=== PATIENT | female | born 1990 | race Caucasian/White ===

== ENCOUNTER 2022-07-19 01:29 | Emergency (ER) | payer MEDICAID, SELFPAY ==
[2022-07-19 01:30] VITALS: BP 124/85; PULSE 108; RESP 14; TEMP 36.4; O2SAT 99; BMI 21.4
--- NOTE | 2022-07-19 01:34 | EDS_ITS ---
HPI History of Present Illness Chief Complaint: General Illness Informant: patient and EMS Narrative Narrative: Patient presents by EMS because she feels shaky on the inside, she feels achy all over, feels fidgety, and this all started a couple hours ago, about 1 hour after she took the first dose of 2 new medications for her mental health, gabapentin and Zyprexa. She is currently an inpatient resident at [facility] addiction center. EMS states she is acting like she took an illicit stimulant, the patient denies that but states she does have a history of using crack cocaine. She states this feels like she is in precipitated withdrawal and just wants to feel better so she can go to sleep. She denies any other symptoms. [facility] Medical History (Updated 07/19/22 @ 01:[address] Kristofer Field MD) Alcohol abuse Allergies Anemia Anxiety Asthma Bipolar 2 disorder Depression Drug abuse Hepatitis B Hx MRSA infection Hx of fracture Hx: UTI (urinary tract infection) Lymphocytic colitis PTSD (post-traumatic stress disorder) Recurrent infections Tumors Home Medications buprenorphine 100 mg/0.5 mL solution,exten.rel.subcutaneous syringe (Sublocade) 100 mg subcut QMONTH 07/16/22 [History Last Taken Unknown] hydroxyzine pamoate 50 mg capsule (Vistaril) 50 mg PO BID PRN 07/16/22 [History Last Taken Unknown] prazosin 1 mg capsule 1 mg PO QHS 07/16/22 [History Last Taken Unknown] trazadone 50 mg PO HS 07/16/22 [History Last Taken Unknown] Allergy/AdvReac Type Severity Reaction Status Date / Time penicillin G Allergy Intermediate Hives Verified 07/19/22 01:37 augmentin Allergy Intermediate Hives Uncoded 07/19/22 01:37 Family History (Updated 07/16/22 @ 14:24 by Chantale Fowler) Mother Anemia Cancer cervical/ovarian Grandmother Asthma Breast cancer Parkinsons Poor mental health Father Arthritis Bowel disease Grandfather Colon cancer Diabetes Other Anxiety Surgical History (Updated 07/16/22 @ 14:17 by Chantale Fowler) History of tonsillectomy and adenoidectomy [place] teeth removed Social History Smoking Status: Current every day smoker tobacco type: cigarettes alcohol intake: former year quit: 2014 substance use type: marijuana and crack/cocaine what type of physical activity do you participate in: yoga ROS ROS ED Constitutional Constitutional ED: Denies chills or fever(s) Eyes Eyes: Denies change in vision or diplopia ENT ENT ED: Denies rhinorrhea or sore throat Cardiovascular Cardiovascular: Denies chest pain or palpitations Respiratory/Chest Respiratory/Chest: Denies cough or dyspnea Gastrointestinal Gastrointestinal: Denies abdominal pain, diarrhea, nausea or vomiting Genitourinary Genitourinary ED: Denies dysuria or hematuria Musculoskeletal Musculoskeletal: Reports myalgias; Denies back pain or neck pain Integumentary Denies abscess or rash Neurologic Neurologic: Denies headache(s), paresthesias or weakness Psychiatric Psychiatric: Reports as per HPI and anxiety; Denies hallucinations, paranoia, suicidal ideation, suicidal thoughts or visual hallucinations EXAM Physical Exam Const Vital Signs: 07/19/22 01:30 07/19/22 01:30 Temperature 97.6 F L Temperature Source Temporal Pulse Rate 108 H Respiratory Rate 14 Respiratory Effort Normal Non-Labored Respiratory Pattern Normal Blood Pressure 124/85 H Blood Pressure Mean 98 Pulse Ox 99 Oxygen Delivery Method Room Air Positive well nourished and well developed Constitutional Narrative: Extremely fidgety and hyperactive/increased psychomotor activity. Keenly alert and oriented x3. General Appearance ED: well developed and NAD HEENT Reports moist mucous membranes normocephalic and atraumatic Eyes PERRL and EOMs intact bilaterally Neck full ROM and supple Resp normal respiratory effort and clear to auscultation bilaterally Cardio regular rate, regular rhythm and no murmurs GI non-tender and non-distended Auscultation: normoactive bowel sounds Palpation: soft Back/Spine no CVA tenderness General Back: other FROM Extremity normal to inspection General Extremety ED: Negative for edema, pulses abnormal or tenderness General Extremity: Negative for edema or pulses abnormal Neuro oriented x3, CN's II-XII intact bilaterally, no sensory deficits noted and gait normal Neuro Narrative: No clonus. Downgoing toes bilaterally. Normal reflexes. Sensorium / Orientation: awake and alert Motor Exam: strength 5/5 throughout Psych cooperative, speech normal, denies hallucinations, denies homicidal ideation and denies suicidal ideation Appearance: grossly normal and appropriate Attitude: agitated Activity / Motor Behavior: psychomotor agitation Mood & Affect: anxious Thought Process: normal thought process Thought Content: normal thought content Attention / Concentration: attention grossly intact Skin no rashes or lesions noted and no wounds MDM MDM MDM Narrative Medical decision making narrative: Patient is very fidgety as EMS described, but her vital signs are stable except for very mild tachycardia, and she is cooperative and able to move all 4 extremities. I do not think there is any reason to consider rhabdomyolysis here, and this is unlikely dystonia or serotonin syndrome. I think she is correct this is probably side effect of the medication she took, for unknown reason --these medications should be compatible with what she has listed. I reviewed her other medications including Sublocade injection. Given all of this, she was given an injection of lorazepam and improved, ambulatory to and from toilet in ED without difficulty or involuntary movements. Stable for discharge back to 180. Discharge Plan Triage Chief Complaint: General Illness ED Provider: Kristofer Field Dx/Rx/DC Orders Clinical Impression: Psychomotor agitation Instructions: ED Drug Reaction, Other Prescriptions: No Action Sublocade 100 mg/0.5 mL solution, extended rel syringe 100 mg subcut QMONTH trazadone 50 mg PO HS prazosin 1 mg capsule 1 mg PO QHS hydroxyzine pamoate [Vistaril] 50 mg capsule 50 mg PO BID PRN Primary Care Provider: Care Physician,No Primary Referrals: Doctor,Your [Non-Staff] - 1-2 Days if not improving Activity Restrictions/Additional Instructions: Possible that symptoms may have been due to the recent new medications gabapentin and Zyprexa, reasonable to discontinue these and seek alternatives. Disposition Disposition: Home, Self Care
[2022-07-19] MEDS: LORazepam 2 MG/ML Syringe 1 MG IM (01:46)
[2022-07-19] MEDS: hydrOXYzine PAM 25 MG Capsule 50 MG PO (02:31)
[2022-07-19 02:38] VITALS: BP 124/85; PULSE 108; RESP 14; O2SAT 97
== END 2022-07-19 03:15 | disposition home or self-care (01) ==
PROVIDERS: Emergency Provider Emergency Medicine; Visit Provider Emergency Medicine
DX: R45.1 Restlessness and agitation (principal); F17.210 Nicotine dependence, cigarettes, uncomplicated
CPT/HCPCS: 96372; 99285

== ENCOUNTER → 2022-07-30 | Outpatient (CLI) | payer MEDICAID, SELFPAY ==
--- NOTE | 2022-07-30 16:30 | US_ITS ---
INDICATION: FAMILY HX OF OVARIAN CANCER EXAMINATION: Ultrasound US Transvaginal Non-OB TECHNIQUE: Transvaginal pelvic ultrasound was performed. Grayscale, spectral waveform, and color flow Doppler evaluation of the adnexa. COMPARISON: None. LMP: 07/20/2022. FINDINGS: UTERUS: 7.6 cm in length. Retroverted. Normal configuration. ENDOMETRIUM: Not thickened, 0.6 cm. A few punctate calcifications. OVARIES: Right ovary: 3.6 x 1.5 x 2.6 cm. Left ovary: 4.8 x 2.0 x 2.2 cm. Simple cyst/follicle 1.9 x 1.0 x 1.4 cm. The ovaries appear unremarkable with a few follicles. Vascular flow demonstrated. No findings to suggest ovarian torsion. FREE FLUID: Mild amount in the cul-de-sac. US/Transvaginal Non- IMPRESSION: No acute findings. Left ovarian 2 cm cyst/follicle. Electronically Signed: Cinthya Sal MD at 7:59 EDT ,
== END | disposition home or self-care (01) ==
LOC: US 16:28
PROVIDERS: PCP Internal Medicine; Referring Provider Nurse Practitioner Women's Health; Visit Provider Nurse Practitioner Women's Health
DX: Z80.41 Family history of malignant neoplasm of ovary (principal)
CPT/HCPCS: 76830

== ENCOUNTER → 2022-07-31 | Outpatient (CLI) | payer MEDICAID, SELFPAY ==
[2022-07-31 15:43] LABS: Absolute Lymphocyte Count 2.79 X10^3/uL (0.83-4.51); Absolute Neutrophil Count 4.6 X10^3/uL (2.0-7.7); Basophil# 0.05 X10^3/uL; Basophil% 0.6 % (0-1); Eosinophil# 0.26 X10^3/uL; Eosinophils% 3.1 % (0-5); Hematocrit 37.4 % (37-47); Hemoglobin 11.9 g/dL (12.0-15.0); Lymphocyte # 2.79 X10^3/ul (0.83-4.51); Lymphocyte % 33.1 % (19-41); Mean Corp Hgb Conc 31.8 g/dL (32-36); Mean Corpuscular Hgb 29.2 pg (27.0-32.0); Mean Corpuscular Volume 91.7 fL (81-99); Mean Platelet Vol. 11.9 fl (6.2-12.0); Monocyte# 0.74 X10^3/uL; Monocyte% 8.8 % (0-10); NRBC Flagged by Analyzer 0 % (0-5); Neutrophil # 4.56 X10^3/uL (2.7-7.7); Platelet Count 278 K/mm3 (150-450); RBC Distribution Width CV 14.8 % (11.6-14.6); RBC Distribution Width SD 49.5 fl (35.1-43.9); Red Blood Count 4.08 M/mm3 (4.2-5.4); White Blood Count 8.4 K/mm3 (4.4-11.0)
[2022-07-31 16:03] LABS: AST(SGOT) 16 U/L (15-37); Alanine Aminotransfer ALT/SGPT 25 U/L (13-56); Albumin, Serum 3.5 g/dL (3.2-5.0); Alkaline Phosphatase 45 U/L (45-117); Anion Gap 7 (5-15); BUN 16 mg/dL (7-18); BUN/Creat Ratio 20.6 RATIO (10-20); Chloride 107 mmol/L (98-107); Creatinine, Serum 0.78 mg/dL (0.55-1.02); EST Glomerular Filtration Rate 93 mL/min (>60); Est Glom Filt Rate - Afr Amer 112 mL/min (>60); Globulin 3.4 g/dL (2.2-4.2); Glucose 99 mg/dL (74-106); Potassium 4.4 mmol/L (3.5-5.1); Protein, Total 6.9 g/dL (6.4-8.2); Sodium Level 137 mmol/L (136-145)
[2022-08-02 16:09] LABS: Endomysial Antibody IgA Negative (Negative); Immunoglobulin A 131 mg/dL (87-352); t-Transglutaminase IgA <2 U/mL (0-3)
== END | disposition home or self-care (01) ==
PROVIDERS: PCP Internal Medicine; Visit Provider Internal Medicine
DX: K52.832 Lymphocytic colitis (principal); R10.32 Left lower quadrant pain
CPT/HCPCS: 87493; 36415; 80053; 82784; 83516; 85025; 86255; 87177; 87209; 87329

== ENCOUNTER → 2022-08-06 | Outpatient (CLI) | payer MEDICAID, SELFPAY ==
--- NOTE | 2022-08-06 14:55 | CT_ITS ---
STUDY: CT ABDOMEN AND PELVIS WITH CONTRAST REASON FOR EXAM: Female, 32 years old. LLQ abdominal pain, history of lymphocytic colitis RADIATION DOSAGE (If Supplied By Facility): CTDIvol = ( 12.27 ) mGy, DLP = ( 462.81 ) mGycm TECHNIQUE: Transaxial images were obtained from the dome of the diaphragm to the symphysis pubis without oral contrast. Oral and amp; IV Redi-CAT and amp; 100mL Isovue-370 was administered. Sagittal and coronal images were reconstructed. Individualized dose optimization techniques were used for this CT. COMPARISON: None. FINDINGS: Minimal subsegmental atelectasis or scarring in the right lung base.. The visualized portions of the heart are within normal limits. Normal liver. Normal gallbladder and extrahepatic biliary system. Normal spleen. Normal pancreas. Normal bilateral adrenal glands. Normal right kidney. Normal left kidney. Normal visualized stomach. Normal small intestine. Diffuse fecal retention noted within the colon.. The appendix is visualized and appears normal. Normal abdominal aorta. Normal inferior vena cava. Normal retroperitoneum. Normal urinary bladder. Small left ovarian cyst. Trace of fluid in the cul-de-sac likely recent ovulation. Normal abdominal wall. Lumbar spine demonstrates. CT/Abdomen/Pelvis WITH Contrast IMPRESSION: Diffuse fecal retention noted within normal-appearing colon. Small left ovarian cyst and trace of fluid in the cul-de-sac likely due to recent ovulation. No other significant abnormalities observed at this time Electronically Signed: Bryan Enriquez MD at 19:56 EDT ,
== END | disposition home or self-care (01) ==
LOC: CT 14:30
PROVIDERS: PCP Internal Medicine; Referring Provider Internal Medicine; Visit Provider Internal Medicine
DX: K52.832 Lymphocytic colitis (principal); R10.32 Left lower quadrant pain
CPT/HCPCS: 74177; Q9967

== ENCOUNTER → 2022-09-14 | Outpatient (CLI) | payer MEDICAID, SELFPAY ==
[2022-09-14 15:04] LABS: Platelet Count 232 K/mm3 (150-450); RET-HE 31.7 pg (30-35); Reticulocyte Count 0.77 % (0.5-1.5)
[2022-09-14 15:20] LABS: Erythrocyte Sedimentation Rate 3 mm/hr (0-30)
[2022-09-14 15:49] LABS: Amylase 58 U/L (25-115); CRP < 2.90 mg/L (0.0-3.0); Ferritin 12 ng/mL (8-252); Free T3 2.9 pg/mL (2.18-3.98); Iron 98 ug/dL (50-170); Iron Binding Capacity,Total 381 ug/dL (250-450); LDH 163 U/L (84-246); Lipase 18 U/L (13-75); T4 Free Direct 0.96 ng/dL (0.76-1.46)
[2022-09-17 16:09] LABS: Anti-Centromere B Ab <0.2 AI (0.0-0.9); Anti-Chromatin <0.2 AI (0.0-0.9); Anti-Jo <0.2 AI (0.0-0.9); Anti-Scleroderma-70 AB <0.2 AI (0.0-0.9); Anti-dsDNA Ab <1 IU/mL (0-9); RNP Ab <0.2 AI (0.0-0.9); SJOGREN'S Anti-SS-A test < 0.2 AI (0.0-0.9); SJOGREN'S Anti-SS-B test < 0.2 AI (0.0-0.9); Smith Ab <0.2 AI (0.0-0.9)
== END | disposition home or self-care (01) ==
PROVIDERS: PCP Internal Medicine; Referring Provider Internal Medicine Gastroenterology; Visit Provider Internal Medicine Gastroenterology
DX: K52.832 Lymphocytic colitis (principal); B19.10 Unspecified viral hepatitis B without hepatic coma
CPT/HCPCS: 82150; 82728; 82784; 82785; 82941; 83540; 83550; 83615; 83690; 84165; 84439; 84443; 84481; 85045; 85652; 86140; 86225; 86235; 86256; 86334; 86705; 86707; 87340; 87350

== ENCOUNTER 2022-09-24 15:46 | Emergency (ER) | payer MEDICAID, SELFPAY ==
[2022-09-24 15:47] VITALS: BP 121/86; PULSE 69; RESP 14; TEMP 37.2; O2SAT 98; BMI 23.8
--- NOTE | 2022-09-24 16:28 | ED.VIS.DENTA ---
HPI History of Present Illness Chief Complaint: Dental Narrative Narrative: 32-year-old female with dental pain on the right mandibular region. She states she feels like the pain is radiating into her jaw. She has any trouble swallowing or breathing. No fevers or chills. No nausea or vomiting. Currently she is in [facility] for drug abuse. She states that she has found some leftover clindamycin but states its only 1 pill and she is take it twice a day. She does not know what it was for or where it was from. She knows it was for her. She denies any trauma. She states he has a dentist appointment next Saturday. [facility] Medical History Alcohol abuse Allergies Anemia Anxiety Asthma Bipolar 2 disorder Depression Drug abuse Hepatitis B Hx MRSA infection Hx of fracture Hx: UTI (urinary tract infection) Lymphocytic colitis PTSD (post-traumatic stress disorder) Recurrent infections Tumors Home Medications buprenorphine 100 mg/0.5 mL solution,exten.rel.subcutaneous syringe (Sublocade) 100 mg subcut QMONTH 07/16/22 [History Last Taken Unknown] hydroxyzine pamoate 50 mg capsule (Vistaril) 50 mg PO BID PRN 07/16/22 [History Last Taken Unknown] prazosin 1 mg capsule 1 mg PO QHS 07/16/22 [History Last Taken Unknown] gabapentin 100 mg capsule cap PO 07/19/22 [History Last Taken Unknown] olanzapine 10 mg-samidorphan 10 mg tablet (Lybalvi) 1 tab PO 07/19/22 [History Last Taken Unknown] psyllium husk 3.4 gram/5.4 gram oral powder (Metamucil) 1 tbsp PO DAILY #660 grams 08/07/22 [Rx Last Taken Unknown] ondansetron 4 mg disintegrating tablet 4 mg PO Q8H PRN nausea and vomiting #30 tabs 08/08/22 [Rx Last Taken Unknown] clindamycin HCl 150 mg capsule 450 mg (3 x 150 mg) PO TID 10 days #90 caps 09/24/22 [Rx Last Taken Unknown] naproxen 500 mg tablet (Naprosyn) 500 mg PO BID PRN pain #30 tabs 09/24/22 [Rx Last Taken Unknown] Allergy/AdvReac Type Severity Reaction Status Date / Time penicillin G Allergy Intermediate Hives Verified 09/24/22 15:47 augmentin Allergy Intermediate Hives Uncoded 09/14/22 13:22 Family History Mother Anemia Cancer cervical/ovarian Grandmother Asthma Breast cancer Parkinsons Poor mental health Father Arthritis Bowel disease colitis Grandfather Colon cancer Diabetes Other Anxiety Surgical History History of tonsillectomy and adenoidectomy [place] teeth removed Social History household members: other details: [facility] treatment program current occupational status: unemployed Smoking Status: Current every day smoker tobacco type: cigarettes Electronic Cigarette Use: not used alcohol intake: former year quit: 2014 substance use type: marijuana and crack/cocaine what type of physical activity do you participate in: yoga do you feel safe at home: Yes ROS ROS ED Constitutional Constitutional ED: Denies chills, fever(s) or sweats Eyes Eyes: Denies blurry vision or change in vision ENT ENT ED: Reports other Details: Dental pain ; Denies ear pain or sore throat Cardiovascular Cardiovascular: Denies chest pain, palpitations or racing heartbeat Respiratory/Chest Respiratory/Chest: Denies cough, dyspnea or sputum Gastrointestinal Gastrointestinal: Denies abdominal pain, constipation, diarrhea, nausea or vomiting Genitourinary Genitourinary ED: Denies dysuria, hematuria or urinary frequency Musculoskeletal Musculoskeletal: Denies arthralgias, myalgias or neck pain Integumentary Denies abscess, Abrasions or rash Neurologic Neurologic: Denies headache(s), paresthesias or weakness Psychiatric Psychiatric: Denies anxiety, depression, suicidal ideation or suicidal thoughts Endocrine Endocrinology: Denies polydipsia or polyuria EXAM Physical Exam Const Vital Signs: 09/24/22 15:47 Temperature 99 F Temperature Source Temporal Pulse Rate 69 Respiratory Rate 14 Blood Pressure 121/86 H Blood Pressure Mean 97 Pulse Ox 98 Oxygen Delivery Method Room Air Positive well nourished General Appearance ED: NAD HEENT HEENT Narrative: Percussion tenderness of the right premolar. No surrounding edema, erythema, abscess. Negative for trauma or tenderness Mouth ED: Yes oral and palatal mucosa normal, Yes lips normal, Yes tongue normal, Yes salivary gland normal and Yes oral and palatal mucosa abnormal Mouth: oral and palatal mucosa normal, lips normal, tongue normal, salivary gland normal and oral and palatal mucosa abnormal Throat: posterior oropharynx normal Eyes PERRL and EOMs intact bilaterally Chest Wall inspection of chest normal Resp normal respiratory effort Cardio regular rate and regular rhythm Neuro oriented x3 and CN's II-XII intact bilaterally Sensorium / Orientation: alert Psych mental status grossly normal MDM MDM MDM Narrative Medical decision making narrative: Patient presenting with dental pain. Her exam is rather unremarkable other than some percussion tenderness. She has been on clindamycin states she took 2 doses of 1 pill which I suspect is 150 mg pill. She is penicillin allergic so I will increase her clindamycin to 450 3 times daily and give her prescription for Naprosyn 500 mg twice daily as needed pain. She is to follow-up with her dentist. Return precautions discussed. Impression: 1 dental pain Discharge Plan Triage Chief Complaint: Dental ED Provider: Feroz Maradiaga Dx/Rx/DC Orders Instructions: ED Dental Pain, ED Dental Cavity Prescriptions: New clindamycin HCl 150 mg capsule 450 mg PO TID 10 Days Qty: 90 0RF naproxen [Naprosyn] 500 mg tablet 500 mg PO BID PRN (Reason: pain) Qty: 30 0RF No Action Lybalvi 10-10 mg tablet 1 tab PO Hold Instructions: Order Changed gabapentin 100 mg capsule PO Sublocade 100 mg/0.5 mL solution, extended rel syringe 100 mg subcut QMONTH prazosin 1 mg capsule 1 mg PO QHS hydroxyzine pamoate [Vistaril] 50 mg capsule 50 mg PO BID PRN Metamucil 3.4 gram/5.4 gram powder 1 tbsp PO DAILY Qty: 660 0RF Rx Instructions: mix into at least 8 oz of water or juice before administering ondansetron 4 mg tablet,disintegrating 4 mg PO Q8H PRN (Reason: nausea and vomiting) Qty: 30 0RF Primary Care Provider: Szuie Myers Referrals: Suzie Myers MD [Primary Care Provider] - Disposition Disposition: Home, Self Care
[2022-09-24] MEDS: Clindamycin HCl 150 MG Capsule 450 MG PO (16:31)
[2022-09-24] MEDS: Ketorolac 15 MG/ML Vial IM (16:31)
== END 2022-09-24 17:38 | disposition home or self-care (01) ==
PROVIDERS: Emergency Provider Student in an Organized Health Care Education/Training Program; PCP Internal Medicine; Visit Provider Student in an Organized Health Care Education/Training Program
DX: K08.89 Other specified disorders of teeth and supporting structures (principal); F17.210 Nicotine dependence, cigarettes, uncomplicated; F12.90 Cannabis use, unspecified, uncomplicated
CPT/HCPCS: 96372; 99282

== ENCOUNTER → 2022-10-05 | Outpatient (CLI) | payer MEDICAID, SELFPAY ==
--- NOTE | 2022-10-05 11:55 | NM_ITS ---
CLINICAL: 32-year-old female with history of postprandial abdominal pain. SEMI-SOLID PHASE 99m Tc SULFUR COLLOID GASTRIC EMPTYING STUDY COMPARISON: None available FINDINGS: The patient was administered 1.1 mCi of 99m Tc sulfur colloid mixed with oatmeal and consumed per os. Image acquisitions in the anterior-posterior projections were obtained for 60 minutes. There is prompt visualization of the stomach. There is no gastroesophageal reflux identified. First order kinetics are maintained throughout the duration of the acquisitions. The T ? linear fit was extrapolated to be 109.47 minutes, (Normal: 12-56 minutes). NM/Gastric Emptying Study IMPRESSION: 1. ABNORMAL 99m Tc sulfur colloid semi-solid phase (oatmeal) gastric emptying imaging examination. A. There is delayed semi-solid phase gastric emptying compared to normal controls. (Taco et al, J Nucl Med Tech 38: 186, 2010). Electronically Signed: Arnold Palomo, at 11:15 EDT ,
== END | disposition home or self-care (01) ==
LOC: NM 11:51
PROVIDERS: PCP Internal Medicine; Referring Provider Internal Medicine Gastroenterology; Visit Provider Internal Medicine Gastroenterology
DX: R10.9 Unspecified abdominal pain (principal)
CPT/HCPCS: 78264; A9541

== ENCOUNTER 2022-10-19 12:11 | Day surgery (SDC) | payer MEDICAID, SELFPAY ==
[2022-10-19 12:46] LABS: Internal QC Validated? YES +Cl - CLEAR BKGD; Pregnancy, Urine Negative Negative
[2022-10-19] MEDS: Lactated Ringers 1,000 ML 15 ML IV (12:52)
[2022-10-19 12:53] VITALS: BP 118/68; PULSE 60; RESP 17; TEMP 36.7; O2SAT 98; BMI 26.4
--- NOTE | 2022-10-19 13:30 | IMM_PTH ---
PATIENT: CRYSTAL BARON LOC: EN U#:[id number] AGE/SX: 32/F ROOM: RE10/19/[address]: Dr. Luis Daniel Hutton DO : 1990 BED: DIS: 10/19/2022 SPEC #: [id number] RECD: 10/22/22 13:23 STATUS: MARLENY RERowan #: [id number] HETAL: 10/19/22 13:[address]: Luis Daniel Hutton DEPT: IMMUNOHISTOCHEMISTRY RECD BY: Marielle Atkinson ENTERED: 10/22/22 13:24 SP TYPE: IMMUNO OTHR DR: Dr. Suzie Myers MD Tissues: B - Stomach, NOS Procedures: H Pylori (initial) PHYSICIAN & INSTITUTION [place] [id number] SPECIMEN INFORMATION: Tissue Source: B - Gastric antrum Clinical Info: Lymphocytic colitis, history hepatitis B Specimen Number: [id number] CPT code: 07923 METHODOLOGY: Deparaffinized sections of prefer/formalin-fixed tissue or PAP/DQ stained slides are incubated with monoclonal/polyclonal antibodies/oligonucleotide probes. Localization is made via biotin free immunoperoxidase method. Appropriate controls are performed and reacted as expected. Results on target cell population are indicated in the following table: RESULTS: ANTIBODY / CLONE RESULT Block B H Pylori (polyclonal) negative These tests were developed and their performance characteristics determined by [facility]. They may not have been cleared or approved by the U.S. Food and Drug Administration. The FDA has determined that such clearance or approval is not necessary. The above immunohistochemical/dualISH markers are ordered and reviewed by the Pathologist. INTERPRETATION: B. Gastric antrum, biopsy: Negative for Helicobacter pylori organisms. SJ:anila 10/23/2022
--- NOTE | 2022-10-19 13:30 | EGD_PTH ---
PATIENT: CRYSTAL BARON LOC: EN U#:[id number] AGE/SX: 32/F ROOM: RE10/19/[address]: Dr. Luis Daniel Hutton DO : 1990 BED: DIS: 10/19/2022 SPEC #: [id number] RECD: 10/19/22 16:18 STATUS: MARLENY ALISSON #: [id number] HETAL: 10/19/22 13:[address]: Luis Daniel Hutton DEPT: SURGICAL PATHOLOGY RECD BY: Nataly Bassett ENTERED: 10/22/22 08:35 SP TYPE: EGD BIOPSY OT DR: Dr. Suzie Myers MD Tissues: A - Small intestine biopsy B - Gastric mucous membrane C - Esophagus, NOS D - Ileum, NOS E - Sigmoid colon biopsy F - Sigmoid colon biopsy G - Sigmoid colon biopsy Procedures: Special Stain Group II Surgery Specimen Level IV Alcian Blue/PAS (control) HEADER OPERATION: Colonoscopy with polypectomy and biopsy, EGD ([facility]) with biopsy PRE-OP DIAGNOSIS: Lymphocytic colitis, history hepatitis B TISSUE SUBMITTED: A - Small intestine biopsy, B - Gastric antrum biopsy, C - Distal esophagus biopsy, D - Terminal ileum biopsy, E - Sigmoid colon biopsy, F - Polyp sigmoid colon, G - Sigmoid polyp x2 MICROSCOPIC DIAGNOSIS A. Small intestine, biopsy: A fragment of small intestinal mucosa, no pathologic diagnosis. B. Gastric antrum, biopsy: Mild gastritis. See microscopic description and comment. C. Distal esophagus, biopsy: A fragment of gastroesophageal mucosa with chronic inflammation. Intestinal metaplasia (goblet cell metaplasia) not identified. See comment. D. Terminal ileum, biopsy: Fragments of small intestinal mucosa, no pathologic diagnosis. E. Sigmoid colon, biopsy: Fragments of colonic mucosa, no pathologic diagnosis. F. Polyps of sigmoid colon, biopsy: Consistent with a fragment of benign mucosal polyp. Fragments of fecal material. See comment. G. Sigmoid polyp x2, biopsy: Fragments of fecal material. See comment. SJ:anila 10/23/2022 COMMENT B. The results of immunohistochemistry for Helicobacter pylori will be reported separately ([id number]). C. Alcian blue/PAS stain with matched control is used in the evaluation of the specimen. The specimen predominantly consists of gastric mucosa. F. The specimen predominantly consists of fecal material. G. Colonic tissue is not identified in the specimen. Correlation with clinical, endoscopic findings and appropriate follow up are necessary. MICROSCOPIC DESCRIPTION Slides are reviewed. B. The specimen shows fragments of gastric mucosa with chronic inflammatory cell infiltrates in the lamina propria consisting of lymphocytes and plasma cells, consistent with mild chronic gastritis. GROSS DESCRIPTION A - Received in fixative is one container labeled with the patient's name and designated small intestine biopsy. The specimen consists of one irregular fragment of light leal soft tissue that measures 0.3 x 0.3 x 0.1 cm. The specimen is totally submitted in one cassette. B - Received in fixative is one container labeled with the patient's name and designated gastric antrum biopsy. The specimen consists of two irregular fragments of light leal soft tissue that in aggregate measure 0.6 x 0.2 x 0.1 cm. The specimen is totally submitted in one cassette. C - Received in fixative is one container labeled with the patient's name and designated distal esophagus biopsy. The specimen consists of one irregular fragment of light leal soft tissue that measures 0.3 x 0.3 x 0.1 cm. The specimen is totally submitted in one cassette. D - Received in fixative is one container labeled with the patient's name and designated terminal ileum biopsy. The specimen consists of multiple irregular fragments of light leal soft tissue that in aggregate measure 1.0 x 0.3 x 0.1 cm. The specimen is totally submitted in one cassette. E - Received in fixative is one container labeled with the patient's name and designated sigmoid colon biopsy. The specimen consists of multiple irregular fragments of light leal soft tissue that in aggregate measure 1.0 x 0.5 x 0.1 cm. The specimen is totally submitted in one cassette. F - Received in fixative is one container labeled with the patient's name and designated polyp sigmoid colon. The specimen consists of multiple irregular fragments of light leal soft tissue that in aggregate measure 2.0 x 1.0 x 0.3 cm. The specimen is totally submitted in one cassette. G - Received in fixative is one container labeled with the patient's name and designated sigmoid polyp #2. The specimen consists of multiple irregular fragments of light leal soft tissue that in aggregate measure 0.6 x 0.1 x 0.1 cm. The specimen is totally submitted in one cassette. / AUGUSTINA:anila 10/22/2022 TC:3 CPT: 18698 x7, 05134
--- NOTE | 2022-10-19 13:47 | HP.PCM_ITS ---
History and Physical Date of Admission: 10/19/22 32 F who presents to the office today for initial consult. PCP OV 07.19.22 to establish care. History of alcohol and drug abuse. Last alcoholic consumption 2014; last cocaine use 06.08.22 with history of IV drug use with heroin; enrolled in treatment through . Mental health history includes bipolar, depression, anxiety and PTSD; established with psychiatry. GI concern of loose stools abdominal pain, diarrhea and nausea with weight loss have been ongoing for many years with diagnosis of lymphocytic colitis 2019 following colonoscopy.?Biochemical?CBC, CMP, celiac not performed.?Stool O/P, giardia, C.difficile not performed.?CT abd/pel 08.06.22?diffuse fecal retention of colon; small left ovarian cyst with trace fluid r/t recent ovulation.? Pt reports ongoing abdominal issues past 2-3 years. Was told conflicting diagnosis. Postprandial upper and lower abdominal pain. Intermittent HB takes OTC Tums. BM are irregular. Will have urgent diarrhea that is brought on when eating spicy, greasy or fatty foods. Does not go for 1-2 weeks if she tries following a bland diet that is somewhat relieved with OTC laxatives. Pt has daily nausea and was prescribed Zofran by PCP that is somewhat helpful. ROS Const Constitutional: Positive for fatigue, headache(s) and weight change ENT ENT: Positive for headache(s); No difficulty swallowing Gastro GI: Positive for abdominal pain, bloating, constipation, diarrhea, heartburn, nausea/dyspepsia and vomiting; No belching, change in bowel habits, change in stool character, coffee ground emesis, cramping, difficulty swallowing, feeling full early, excessive flatus, incontinent of stools, Vomiting blood/hematemesis, Blood in stool, loose stools, Black,tarry stools, pain with swallowing or other Musc Musculoskeletal: Positive for numbness and tingling; No joint pain Skin Skin: No yellowing of the eye or itchy eyes Neuro Neurology: Positive for headache(s), numbness and tingling Psych Psychiatric: No anxiety and No depression Endo Endocrine: Positive for fatigue and weight change Aller/Imm Allergy/Immunologic: No itchy eyes Yo/Lymp Hematologic/Lymphatic: Positive for easy bruising; No easy bleeding Exam Const General: cooperative and comfortable Nutritional Appearance: average body habitus and well nourished HENHI Head: normal to inspection Ears: hearing grossly normal bilaterally Nose: external nose normal Face and sinus: normal facial exam Mouth: oral mucosae normal Throat: posterior oropharynx normal Eyes General: appearance normal, both eyes and all related structures Neck Neck: normal visual inspection Chest Chest palpation & inspection: normal inspection of the chest and normal palpation of entire chest wall Resp Effort & Inspection: normal respiratory effort Auscultation: Bilateral: Clear to Auscultation Cardio Palpation: normal PMI Rate: regular rate Rhythm: regular rhythm GI Inspection: normal to inspection Auscultation: normal bowel sounds Percussion: normal to percussion Palpation: no hepatosplenomegaly Skin General: no rashes or lesions noted Neuro General: patient alert Extrem General: normal to inspection Psych Affect: normal affect Quality Reporting Tobacco Screening ([facility] 138) Smoking Status: Current every day smoker Assessment and Plan Assessment and Plan (1) Lymphocytic colitis: Status: Acute Plan: Differential diagnosis for her refractory diarrhea is likely constipation with overflow fecal incontinence. She could have patches of lymphocytic colitis that may be contributing to her some of her symptoms. We will know this from repeat colonoscopy. (2) Hepatitis B: Status: Acute Plan: She was told that she does have history of hepatitis B and she cleared it. Need to check and document whether she really has it with a hepatitis PCR DNA and hepatitis B surface antibody and antigen. Orders: Orders Calprotectin, Stool Today B19.10 - Unspecified viral hepatitis B without hepatic coma, K52.832 - Lymphocytic colitis Pancreatic Elastase, Fecal Today B19.10 - Unspecified viral hepatitis B without hepatic coma, K52.832 - Lymphocytic colitis Fecal Fat, Qualitative Today B19.10 - Unspecified viral hepatitis B without hepatic coma, K52.832 - Lymphocytic colitis LAILA + Protein Elect, Serum Today B19.10 - Unspecified viral hepatitis B without hepatic coma, K52.832 - Lymphocytic colitis Iron Binding Capacity,Total Today B19.10 - Unspecified viral hepatitis B without hepatic coma, K52.832 - Lymphocytic colitis Retic Panel Count Today B19.10 - Unspecified viral hepatitis B without hepatic coma, K52.832 - Lymphocytic colitis Iron Today B19.10 - Unspecified viral hepatitis B without hepatic coma, K52.832 - Lymphocytic colitis LDH Today B19.10 - Unspecified viral hepatitis B without hepatic coma, K52.832 - Lymphocytic colitis Ferritin Today B19.10 - Unspecified viral hepatitis B without hepatic coma, K52.832 - Lymphocytic colitis ANCA Today B19.10 - Unspecified viral hepatitis B without hepatic coma, K52.832 - Lymphocytic colitis CRP Today B19.10 - Unspecified viral hepatitis B without hepatic coma, K52.832 - Lymphocytic colitis Erythrocyte Sed Rate Today B19.10 - Unspecified viral hepatitis B without hepatic coma, K52.832 - Lymphocytic colitis Amylase Today B19.10 - Unspecified viral hepatitis B without hepatic coma, K52.8 32 - Lymphocytic colitis Lipase Today B19.10 - Unspecified viral hepatitis B without hepatic coma, K52.832 - Lymphocytic colitis Stool Lactoferrin/WBC Today B19.10 - Unspecified viral hepatitis B without hepatic coma, K52.832 - Lymphocytic colitis, K58.9 - Irritable bowel syndrome without diarrhea Thyroid Stim Hormone (TSH) Today B19.10 - Unspecified viral hepatitis B without hepatic coma, K52.832 - Lymphocytic colitis T4 Free Direct Today B19.10 - Unspecified viral hepatitis B without hepatic coma, K52.832 - Lymphocytic colitis Free T3 Today B19.10 - Unspecified viral hepatitis B without hepatic coma, K52.832 - Lymphocytic colitis ALVARADO Comprehensive Panel Today B19.10 - Unspecified viral hepatitis B without hepatic coma, K52.832 - Lymphocytic colitis Immunoglobulins G/A/M/E Today B19.10 - Unspecified viral hepatitis B without hepatic coma, K52.832 - Lymphocytic colitis Hepatitis B Profile Today B19.10 - Unspecified viral hepatitis B without hepatic coma, K52.832 - Lymphocytic colitis Gastrin, Serum Today B19.10 - Unspecified viral hepatitis B without hepatic coma, K52.832 - Lymphocytic colitis Miscellaneous Lab Procedure Today B19.10 - Unspecified viral hepatitis B without hepatic coma, K52.832 - Lymphocytic colitis Miscellaneous Lab Procedure 2 Today B19.10 - Unspecified viral hepatitis B without hepatic coma, K52.832 - Lymphocytic colitis HIV - [facility] Today B19.10 - Unspecified viral hepatitis B without hepatic coma, K52.832 - Lymphocytic colitis I have examined the patient and the H&P has been reviewed. There are no clinical changes since date of exam.
[2022-10-19 14:36] VITALS: BP 118/68; BP 89/52; PULSE 62; RESP 12; TEMP 36.9; O2SAT 100
[2022-10-19 14:40] VITALS: BP 118/68; BP 96/54; PULSE 55; RESP 16; O2SAT 100
[2022-10-19 14:45] VITALS: BP 118/68; BP 93/62; PULSE 52; RESP 16; O2SAT 100
--- NOTE | 2022-10-19 14:49 | OP.CCLET_ITS ---
10/19/2022 Suzie Myers Md Re : Upper GI endoscopy procedure for Angelic Machuca Dear [place] This procedure was performed on Wednesday, October 19, 2022. My impressions and recommendations are as follows: Impressions : - Z-line irregular, 37 cm from the incisors. Biopsied. - LA Grade A reflux esophagitis. - Erythematous mucosa in the antrum. Biopsied. - No gross lesions in the first portion of the duodenum. Biopsied. Recommendations : - Discharge patient to home. -Pantoprazole 20 mg p.o. every 12 hours -Carafate 1 g p.o. 12 hours - Continue present medications. My findings are described in the full procedure note, which is enclosed. If I can be of further assistance, please feel free to contact me at . Sincerely, Luis Daniel Hutton, 10/19/2022 2:49:01 PM This report has been signed electronically.
--- NOTE | 2022-10-19 14:49 | OP.EGD_ITS ---
Patient Name: Angelic Machuca Procedure Date: 10/19/2022 1:45 PM Date of : 1990 Age: 32 Procedure: Upper GI endoscopy Indications: Epigastric abdominal pain, Heartburn Providers: Luis Daniel Hutton DO Referring MD: Suzie Myers Md Medicines: Monitored Anesthesia Care Patient Profile: This is a 32 year old female. Refer to note in patient chart for documentation of history and physical. Patient has symptoms of chronic abdominal cramping. Complications: No immediate complications. Procedure: Pre-Anesthesia Assessment: - Prior to the procedure, a History and Physical was performed, and patient medications and allergies were reviewed. The patient is competent. The risks and benefits of the procedure and the sedation options and risks were discussed with the patient. All questions were answered and informed consent was obtained. Patient identification and proposed procedure were verified by the physician in the pre-procedure area. Mental Status Examination: alert and oriented. Airway Examination: normal oropharyngeal airway and neck mobility. Respiratory Examination: clear to auscultation. CV Examination: normal. Prophylactic Antibiotics: The patient does not require prophylactic antibiotics. Prior Anticoagulants: The patient has taken no previous anticoagulant or antiplatelet agents. After reviewing the risks and benefits, the patient was deemed in satisfactory condition to undergo the procedure. The anesthesia plan was to use monitored anesthesia care (MAC). Immediately prior to administration of medications, the patient was re-assessed for adequacy to receive sedatives. The heart rate, respiratory rate, oxygen saturations, blood pressure, adequacy of pulmonary ventilation, and response to care were monitored throughout the procedure. The physical status of the patient was re-assessed after the procedure. After obtaining informed consent, the endoscope was passed under direct vision. Throughout the procedure, the patient's blood pressure, pulse, and oxygen saturations were monitored continuously. The Colonoscope was introduced through the mouth, and advanced to the second part of duodenum. The upper GI endoscopy was accomplished without difficulty. The patient tolerated the procedure well. Scope In: 1:59:11 PM Scope Out: 2:02:54 PM Total Procedure Duration Time 0 hours 3 minutes 43 seconds Findings: The Z-line was irregular and was found 37 cm from the incisors. Biopsies were taken with a cold forceps for histology. Verification of patient identification for the specimen was done. Estimated blood loss was minimal. LA Grade A (one or more mucosal breaks less than 5 mm, not extending between tops of 2 mucosal folds) esophagitis with no bleeding was found 37 to 39 cm from the incisors. Patchy mildly erythematous mucosa without bleeding was found in the gastric antrum. Biopsies were taken with a cold forceps for histology. Verification of patient identification for the specimen was done. Estimated blood loss was minimal. No gross lesions were noted in the first portion of the duodenum. Biopsies were taken with a cold forceps for histology. Verification of patient identification for the specimen was done. Estimated blood loss was minimal. Impression: - Z-line irregular, 37 cm from the incisors. Biopsied. - LA Grade A reflux esophagitis. - Erythematous mucosa in the antrum. Biopsied. - No gross lesions in the first portion of the duodenum. Biopsied. Recommendation: - Discharge patient to home. -Pantoprazole 20 mg p.o. every 12 hours -Carafate 1 g p.o. 12 hours - Continue present medications. Procedure Code(s): --- Professional --- 67566, Esophagogastroduodenoscopy, flexible, transoral; with biopsy, single or multiple CPT copyright 2017 [employer]. All rights reserved. The codes documented in this report are preliminary and upon manager market research review may be revised to meet current compliance requirements. Luis Daniel Hutton DO 10/19/2022 2:49:01 PM This report has been signed electronically. Number of Addenda: 0 Note Initiated On: 10/19/2022 1:45 PM
[2022-10-19 14:50] VITALS: BP 118/68; BP 97/67; PULSE 50; RESP 18; TEMP 36.1; O2SAT 100
--- NOTE | 2022-10-19 14:51 | OP.COLON_ITS ---
Patient Name: Angelic Machuca Procedure Date: 10/19/2022 2:03 PM Date of : 1990 Age: 32 Procedure: Colonoscopy Indications: Clinically significant diarrhea of unexplained origin Providers: Luis Daniel Hutton DO Referring MD: Suzie Myers Md Medicines: Monitored Anesthesia Care Patient Profile: This is a 32 year old female. Refer to note in patient chart for documentation of history and physical. Patient has symptoms of chronic abdominal cramping. Last Colonoscopy: none. The patient's first colonoscopy is today. Complications: No immediate complications. Procedure: Pre-Anesthesia Assessment: - Prior to the procedure, a History and Physical was performed, and patient medications and allergies were reviewed. The patient is competent. The risks and benefits of the procedure and the sedation options and risks were discussed with the patient. All questions were answered and informed consent was obtained. Patient identification and proposed procedure were verified by the physician in the pre-procedure area. Mental Status Examination: alert and oriented. Airway Examination: normal oropharyngeal airway and neck mobility. Respiratory Examination: clear to auscultation. CV Examination: normal. Prophylactic Antibiotics: The patient does not require prophylactic antibiotics. Prior Anticoagulants: The patient has taken no previous anticoagulant or antiplatelet agents. After reviewing the risks and benefits, the patient was deemed in satisfactory condition to undergo the procedure. The anesthesia plan was to use monitored anesthesia care (MAC). Immediately prior to administration of medications, the patient was re-assessed for adequacy to receive sedatives. The heart rate, respiratory rate, oxygen saturations, blood pressure, adequacy of pulmonary ventilation, and response to care were monitored throughout the procedure. The physical status of the patient was re-assessed after the procedure. After I obtained informed consent, the scope was passed under direct vision. Throughout the procedure, the patient's blood pressure, pulse, and oxygen saturations were monitored continuously. The Colonoscope was introduced through the anus and advanced to the terminal ileum. The colonoscopy was performed without difficulty. The patient tolerated the procedure well. The quality of the bowel preparation was adequate. Scope In: 2:07:04 PM Scope Withdrawal Time 0 hours 17 minutes 59 seconds Scope Out: 2:29:32 PM Total Procedure Duration Time 0 hours 22 minutes 28 seconds Findings: The perianal and digital rectal examinations were normal. Two sessile polyps were found in the sigmoid colon. The polyps were 1 to 2 mm in size. These polyps were removed with a hot snare. Resection and retrieval were complete. Verification of patient identification for the specimen was done. Estimated blood loss was minimal. An area of mildly congested mucosa was found in the sigmoid colon. Biopsies were taken with a cold forceps for histology. Verification of patient identification for the specimen was done. Estimated blood loss was minimal. Stool was found in the recto-sigmoid colon and in the sigmoid colon. The terminal ileum appeared normal. Biopsies were taken with a cold forceps for histology. Verification of patient identification for the specimen was done. Estimated blood loss was minimal. Impression: - Two 1 to 2 mm polyps in the sigmoid colon, removed with a hot snare. Resected and retrieved. - Congested mucosa in the sigmoid colon. Biopsied. - Stool in the recto-sigmoid colon and in the sigmoid colon. - The examined portion of the ileum was normal. Biopsied. Recommendation: - Discharge patient to home. - Resume previous diet. - Continue present medications. - Await pathology results. - Repeat colonoscopy in 5 years for surveillance based on pathology results. Procedure Code(s): --- Professional --- 85264, Colonoscopy, flexible; with removal of tumor(s), polyp(s), or other lesion(s) by snare technique 63358, 59, Colonoscopy, flexible; with biopsy, single or multiple CPT copyright 2017 [employer]. All rights reserved. The codes documented in this report are preliminary and upon asbestos remover review may be revised to meet current compliance requirements. Luis Daniel Hutton DO 10/19/2022 2:51:27 PM This report has been signed electronically. Number of Addenda: 0 Note Initiated On: 10/19/2022 2:03 PM
--- NOTE | 2022-10-19 14:51 | OP.CCLET_ITS ---
10/19/2022 Suzie Myers Md Re : Colonoscopy procedure for Angelic Machuca Dear [place] This procedure was performed on Wednesday, October 19, 2022. My impressions and recommendations are as follows: Impressions : - Two 1 to 2 mm polyps in the sigmoid colon, removed with a hot snare. Resected and retrieved. - Congested mucosa in the sigmoid colon. Biopsied. - Stool in the recto-sigmoid colon and in the sigmoid colon. - The examined portion of the ileum was normal. Biopsied. Recommendations : - Discharge patient to home. - Resume previous diet. - Continue present medications. - Await pathology results. - Repeat colonoscopy in 5 years for surveillance based on pathology results. My findings are described in the full procedure note, which is enclosed. If I can be of further assistance, please feel free to contact me at . Sincerely, Luis Daniel Hutton, 10/19/2022 2:51:27 PM This report has been signed electronically.
[2022-10-19 15:18] VITALS: BP 118/68
== END 2022-10-19 15:40 | disposition home or self-care (01) ==
LOC: EN 12:12 → AC 12:14
PROVIDERS: Anesthesiology; PCP Internal Medicine; Referring Provider Internal Medicine; Visit Provider Internal Medicine Gastroenterology
PROC: 0DJD8ZZ Inspection of Lower Intestinal Tract, Via Natural or Artificial Opening Endoscopic (ICD-10-PCS; CPT 45378; principal; 2022-10-19 13:25)
DX: K52.832 Lymphocytic colitis (principal); K63.5 Polyp of colon; K29.70 Gastritis, unspecified, without bleeding; K21.00 Gastro-esophageal reflux disease with esophagitis, without bleeding; B19.10 Unspecified viral hepatitis B without hepatic coma; R19.7 Diarrhea, unspecified; F17.200 Nicotine dependence, unspecified, uncomplicated
CPT/HCPCS: 45385; 45380; 43239; 81025; 88305; 88313; 88342; J7120; J2405

== ENCOUNTER → 2022-11-21 | Outpatient (CLI) | payer MEDICAID, SELFPAY ==
[2022-11-21 13:24] LABS: Lithium < 0.20 mmol/L (0.60-1.20)
[2022-11-21 13:30] LABS: Anion Gap 5 (5-15); BUN 13 mg/dL (7-18); BUN/Creat Ratio 18.2 RATIO (10-20); Calcium,Total 8.8 mg/dL (8.5-10.1); Chloride 108 mmol/L (98-107); Creatinine, Serum 0.72 mg/dL (0.55-1.02); EST Glomerular Filtration Rate 102 mL/min (>60); Est Glom Filt Rate - Afr Amer 123 mL/min (>60); Glucose 96 mg/dL (74-106); Sodium Level 137 mmol/L (136-145); Thyroid Stim Hormone (TSH) 2.19 uIU/mL (0.358-3.74)
== END | disposition home or self-care (01) ==
LOC: LAB 12:01
PROVIDERS: PCP Internal Medicine; Referring Provider Family Medicine; Visit Provider Family Medicine
DX: F31.9 Bipolar disorder, unspecified (principal)
CPT/HCPCS: 36415; 80048; 80178; 84443

== ENCOUNTER 2023-07-16 07:33 | Inpatient (IN) | payer MEDICAID, SELFPAY ==
[2023-07-16] VITALS (58 sets, daily range): BP systolic 102–147; BP diastolic 55–100; PULSE 51–88; RESP 16–18; TEMP 35.8–36.9; O2SAT 96–100; BMI 37.3
--- NOTE | 2023-07-16 08:30 | PCM.HP.OB ---
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 Maternal Data Information Final ASHISH: 07/22/23 Gestational age: 39&1 PFSH PFSH Medical History Alcohol abuse Allergies Anemia Anxiety Asthma Bipolar 2 disorder Bipolar disorder Depression Drug abuse Hepatitis B Hx MRSA infection Hx of fracture Hx: UTI (urinary tract infection) Lymphocytic colitis MRSA infection PTSD (post-traumatic stress disorder) Recurrent infections Smoker Tumors Wears glasses Home Medications buprenorphine 100 mg/0.5 mL solution,exten.rel.subcutaneous syringe (Sublocade) 100 mg subcut QMONTH 07/16/22 [History Last Taken Unknown] prazosin 1 mg capsule 1 mg PO QHS 07/16/22 [History Last Taken Unknown] gabapentin 100 mg capsule 400 mg PO Q8H 07/19/22 [History Last Taken Unknown] ondansetron 4 mg disintegrating tablet 4 mg PO Q8H PRN nausea and vomiting #30 tabs 08/08/22 [Rx Last Taken Unknown] lithium carbonate 150 mg capsule 150 mg PO BID 10/17/22 [History Last Taken 10/18/22] pantoprazole 20 mg tablet,delayed release 20 mg PO Q12H #60 tabs 10/19/22 [Rx Last Taken Unknown] pantoprazole 20 mg tablet,delayed release 20 mg PO Q12H #60 tabs 10/19/22 [Rx Last Taken Unknown] sucralfate 1 gram tablet 1 g PO .bid 12 weeks #60 tabs 10/19/22 [Rx Last Taken Unknown] sucralfate 1 gram tablet 1 g PO .bid 4 weeks #60 tabs 10/19/22 [Rx Last Taken Unknown] Allergy/AdvReac Type Severity Reaction Status Date / Time amoxicillin [From Augmentin] Allergy Intermediate Hives Verified 11/01/22 09:59 clavulanic acid Allergy Intermediate Hives Verified 11/01/22 09:59 [From Augmentin] penicillin G Allergy Intermediate Hives Verified 10/19/22 12:51 Family History Mother Anemia Cancer cervical/ovarian Grandmother Asthma Breast cancer Parkinsons Poor mental health Father Arthritis Bowel disease colitis Grandfather Colon cancer Diabetes Other Anxiety Surgical History History of tonsillectomy and adenoidectomy [place] teeth removed Social History household members: other details: 180 treatment program current occupational status: unemployed Smoking Status: Current every day smoker tobacco type: cigarettes Electronic Cigarette Use: not used alcohol intake: former year quit: 2014 substance use type: marijuana and crack/cocaine what type of physical activity do you participate in: yoga do you feel safe at home: Yes NST FHR Rate Baby A Baseline: 120 Variability:: Moderate Accelerations:: 15 x 15 Decelerations:: None Uterine Activity:: Occasional Vital Signs Vital Signs Vital Signs: 07/16/23 07:27 07/16/23 07:27 07/16/23 07:29 Pulse Rate 88 85 Blood Pressure 128/76 H BP Systolic 128 BP Diastolic 76 Pulse Ox 07/16/23 07:29 Pulse Rate Blood Pressure BP Systolic BP Diastolic Pulse Ox 96 Physical Exam Const alert, oriented x3 and no apparent distress GI soft to palpation, non-tender and non-distended Inspection: gravid external exam normal Narrative: cvx - 2/80/-2 Labs Labs Labs: Hct 37.4 % (37-47) Hgb 11.9 g/dL (12.0-15.0) L Hep Bs Antigen Not Reportable Miscellaneous Test Assessment & Plan (1) Drug abuse: COMMENT: @ 39&1 (2) PTSD (post-traumatic stress disorder): (3) with 39 completed weeks gestation: PLAN: Plan Admit to L&D Induction of labor for subutex use Intracervical zamora placed & plan for IV pitocin GBS negative Pain - epidural as desired EFW less than 4500g & patient with adequate pelvis
[2023-07-16] MEDS: 0.9% Normal Saline Single 100 ML IV.SOLN. INTRA-UTER (08:42)
[2023-07-16] MEDS: Lactated Ringers 1,000 ML 50 ML IV ×2 (10:05→15:49)
[2023-07-16] MEDS: Oxytocin 15 Units/NS 250ml 15 UNITS/250 ML IV.SOLN 2 UNITS IV (10:06)
[2023-07-16 10:07] LABS: Absolute Lymphocyte Count 2.66 X10^3/uL (0.83-4.51); Absolute Neutrophil Count 9.3 X10^3/uL (2.0-7.7); Basophil# 0.05 X10^3/uL; Basophil% 0.4 % (0-1); Eosinophil# 0.38 X10^3/uL; Eosinophils% 2.8 % (0-5); Hematocrit 30.6 % (37-47); Hemoglobin 9.9 g/dL (12.0-15.0); Lymphocyte # 2.66 X10^3/ul (0.83-4.51); Lymphocyte % 19.8 % (19-41); Mean Corp Hgb Conc 32.4 g/dL (32-36); Mean Corpuscular Hgb 28.4 pg (27.0-32.0); Mean Corpuscular Volume 87.7 fL (81-99); Mean Platelet Vol. 11.7 fl (6.2-12.0); Monocyte# 0.92 X10^3/uL; Monocyte% 6.9 % (0-10); NRBC Flagged by Analyzer 0 % (0-5); Neutrophil # 9.33 X10^3/uL (2.7-7.7); Neutrophil % 69.6 % (47-70); Platelet Count 237 K/mm3 (150-450); RBC Distribution Width CV 13.3 % (11.6-14.6); RBC Distribution Width SD 42.8 fl (35.1-43.9); Red Blood Count 3.49 M/mm3 (4.2-5.4); White Blood Count 13.4 K/mm3 (4.4-11.0)
--- NOTE | 2023-07-16 10:37 | PCM.OP.PRO ---
Procedure Report Date of Procedure: 07/16/23 Assessment & Plan Assessment/Plan (1) Poor venous access: PLAN: PROCEDURE: IV Placement under Ultrasound Guidance PERFORMED BY: NATALIE Jones INDICATION: IV access required. Poor venous access. TECHNIQUE: Patient identity was verified with two patient identifiers. Hands were sanitized. The patient was positioned supine with left arm at 90 degrees. The patient's upper arm vasculature was assessed using ultrasound, and the left basilic vein was externally marked. The vein was suitable for insertion of a 20 gauge 8 cm extended dwell catheter. The sterile kit was opened with additional supplies dropped in. Mask and prep gloves were donned. The underdrape was placed under the patient's arm. The site was prepped with chlorhexidine, and tourniquet was loosely applied. Prep gloves were discarded, and hands were sanitized. Sterile gloves were donned, and the patient's arm was draped. The sterile kit was assembled with needless connector and loop flushed with sterile normal saline. The left basilic vein was then accessed using dynamic ultrasound guidance, and the catheter advanced easily. 1 attempt was required. The tourniquet was released. The flushed loop and needless connector were attached. Blood return was easily aspirated. 10 ml sterile normal saline was delivered via pulsatile flush, and the loop was clamped prior to removal of the syringe to prevent back flow. Skin was prepped and followed by application of a stat-lock and a clear dressing was applied to secure the IV. The patient tolerated the procedure well.
[2023-07-16 10:55] LABS: Syphilis Antibodies Non-reactive
[2023-07-16] MEDS: LACTATED RINGERS 500 ML 999 ML IV ×2 (11:30→12:39)
[2023-07-16] MEDS: fentaNYL-bupivacaine (epidural) 100 ML BAG EPIDURAL (11:52)
[2023-07-16 12:54] LABS: Amphetamine Urine VISTA NEGATIVE (<1000 ng/mL); Barbiturate Urine VISTA NEGATIVE (< 200 ng/mL); Benzodiazepine Urine VISTA NEGATIVE (< 200 ng/mL); Cocaine Urine VISTA NEGATIVE (< 300 ng/mL); Ecstacy Urine VISTA NEGATIVE (< 500 ng/mL); Methadone Urine VISTA NEGATIVE (< 300 ng/mL); PCP Urine VISTA NEGATIVE (< 25 ng/mL); THC Urine VISTA NEGATIVE (< 50 ng/mL); Vista UDS pH Range 6
--- NOTE | 2023-07-16 14:14 | FALS_PTH ---
PATIENT: CRYSTAL BARON LOC: [facility] U#:[id number] AGE/SX: ROOM: [facility]002 RE07/16/[address]: Dr. Matt Alston MD : 1990 BED: 1 DIS: 07/18/2023 SPEC #: [id number] RECD: 07/17/23 09:49 STATUS: MARLENY REQ #: [id number] HEATL: 07/16/23 14:[address]: Matt Alston DEPT: SURGICAL PATHOLOGY RECD BY: Nataly Bassett ENTERED: 07/17/23 09:49 SP TYPE: FALL TUBES OTHR DR: Dr. Suzie Myers MD Tissues: Fallopian tube Procedures: Surgery Specimen Level II HEADER OPERATION: Tubal ligation PRE-OP DIAGNOSIS: Sterilization TISSUE SUBMITTED: Fallopian tubes- stitch in left tube MICROSCOPIC DIAGNOSIS Right fallopian tube, salpingectomy: Complete cross sections of fallopian tube with no pathologic change. Left fallopian tube, salpingectomy: Complete cross sections of fallopian tube with no pathologic change. AM: 07/18/23 MICROSCOPIC DESCRIPTION Slides are reviewed. GROSS DESCRIPTION Received in fixative is one container labeled with the patient's name and designated bilateral fallopian tubes - stitch left tube. The specimen consists of two fallopian tubes with an average length of 8.0 cm and has an average diameter of 0.8 cm. Both fallopian tubes have normal fimbriated ends. No mass lesions are identified. Reprint Sorter sections are submitted in two cassettes as follows: 1 - right fallopian tube, 2 - left fallopian tube. / AM: 07/17/23 TC:4 CPT: 92320 x2
[2023-07-16] MEDS: Cefazolin 2 GM in 0.9% Normal Saline (100mL Bag) 100 ML IV (14:19)
[2023-07-16] MEDS: Azithromycin 500 MG in Dextrose 5%-Water (250mL Bag) 250 ML 250 MG IV (14:36)
--- NOTE | 2023-07-16 14:56 | OP.PCM_ITS ---
Maternal Data Information Final ASHISH: 07/22/23 Gestational age: 39&1 Details Operative Information Date of Procedure: 07/16/23 Pre-Operative Diagnosis: (1) Non reassuring heart tracing (2) Sterilization request Post-Operative Diagnosis: Same Indications for : Desires elective sterilization and Nonreassuring Status Indications Narrative: Patient was taken to the OR for prolonged deceleration. In the OR FHTs varied from 90's to 100's. Her cervical exam was stable from AROM. Patient counseled on R/B/A as she was remoted from delivery with persistent bradycardia. Decision made to proceed with . Epidural anesthesia was dosed & found to be adequate. She was prepped and draped in the dorsal supine position with a leftward tilt. A Pfannenstiel skin incision was made approximately 2 cm above the symphysis pubis and carried through to the underlying fascia with the scalpel. The fascia was incised incised in the midline and extended laterally with the Gann scissors. The rectus muscles were in the midline and the peritoneum was entered carefully and bluntly. The peritoneal incision was stretched and the bladder blade was inserted. Vesicouterine peritoneum was tented up, incised & then bladder flap created gently. The uterine incision was made in a low transverse fashion with the scalpel and extended superiorly and inferiorly with blunt dissection. The 's head was brought to the incision in the flexed position and delivered without difficulty. The head was gently guided to allow delivery of the anterior and posterior shoulders. The body then delivered with fundal pressure in the standard fashion. The 3VC cord was clamped and cut in delayed fashion. The infant was handed off to the waiting pediatric speech therapist. The placenta was delivered with fundal massage and gentle traction in the standard fashion. The uterus was exteriorized and cleared of clots and debris. The uterine incision was closed with #1 Vicryl suture in a running locked fashion. Monocryl suture was used in an imbricating fashion over part of the incision to obtain further hemostasis. The incision was examined and was found to be hemostatic. The uterus was returned to the abdominal cavity. Attention turned to the fallopian tubes. The right fallopian tube was grasped, cauterized and ligated with the Ligasure. Excellent hemostasis of the tubal ligation site was confirmed. Then the left fallopian tube was grasped, cauterized and ligated with the Ligasure. Excellent hemostasis of the tubal ligation site was confirmed After irrigating Nathaly was placed over the uterine incision as some areas were denuded (but hemostatic). The rectus muscle was examined and any bleeding was Bovie cauterized. The fascia was closed with PDS suture in a running standard fashion. The subcutaneous tissue was examining and any bleeding was Bovie cauterized. The subcutaneous tissue was reapproximated with interrupted sutures. The skin was closed in a subcuticular fashion by the AFFILIATE MARKETING COORDINATOR while I was present in the labor & delivery unit. The remainder of the procedure was performed by me with assistance. All sponge, lap, and needle counts were correct. The patient was taken to her room for recovery in a stable condition. Classification: KATTY Procedure Type: bilateral salpingectomy economic manager #1: Berna Sneed Type of Anesthesia: Spinal Antibiotic Given: Ancef 2 grams IV x1 and Zithromax 500 mg/5 mL X1 Drain: Myers to straight drain Estimated Blood Loss: 800 ml Fluids Replaced: 550ml Procedure Start Time: 14:12 Procedure Stop Time: 14:55 Findings Description of Procedure: Normal maternal uterus and adnexa Amniotic Membrane Rupture Type: Artificial Amniotic Fluid Description: Clear Placental Delivery Description: Expressed Placenta Disposition: [facility] Cord Vessel Description: 3 Vessels Cord Entanglement: Around neck x 1, tight Nuchal Cord Compression: With compression A Gender: Male (1 minute): 8 (5 minute): 9 Delayed Cord Clamping: Yes Complications Complications: none
[2023-07-16] MEDS: Oxytocin 15 Units/NS 250ml 15 UNITS/250 ML IV.SOLN 83 UNITS IV (15:15)
[2023-07-16] MEDS: Ketorolac 30 MG/ML Syringe IV ×2 (15:30→21:37)
[2023-07-16 15:43] LABS: Pathology Specimen OB SEE PATHOLOGY REPORT
--- NOTE | 2023-07-16 16:36 | EKG12_ITS ---
Test Reason : ARRYTHMIA Blood Pressure : / mmHG Vent. Rate : 057 BPM Atrial Rate : 057 BPM P-R Int : 240 ms QRS Dur : 092 ms QT Int : 398 ms P-R-T Axes : 000 075 035 degrees QTc Int : 387 ms Sinus bradycardia with 1st degree A-V block Otherwise normal ECG No previous ECGs available Confirmed by NICOLE LLOYD, SAWYER ([id number]), art editor KYA CORONADO ([id number]) on 07/19/2023 9:42:36 AM Referred By: Matt Alston Confirmed By:SAWYER RIVERA MD
[2023-07-16] MEDS: Lactated Ringers 1,000 ML 100 ML IV (17:00)
[2023-07-16] MEDS: Gabapentin 300 MG Capsule PO (17:27)
[2023-07-16] MEDS: Acetaminophen 500 MG Tablet 1000 MG PO (18:01)
[2023-07-16] MEDS: Gabapentin 100 MG Capsule PO (21:36)
[2023-07-16] MEDS: Prazosin HCl 1 MG Capsule PO (21:37)
[2023-07-17] VITALS (13 sets, daily range): BP systolic 105–126; BP diastolic 56–81; PULSE 66–87; RESP 14–18; TEMP 36.1–37.2; O2SAT 96–99
[2023-07-17] MEDS: Acetaminophen 500 MG Tablet 1000 MG PO ×4 (00:20→18:31)
[2023-07-17] MEDS: Ketorolac 30 MG/ML Syringe IV ×2 (04:04→10:08)
[2023-07-17] MEDS: Enoxaparin 40 MG/0.4 ML Syringe SC (04:05)
[2023-07-17 05:04] LABS: Hematocrit 26.4 % (37-47); Hemoglobin 8.4 g/dL (12.0-15.0); Mean Corp Hgb Conc 31.8 g/dL (32-36); Mean Corpuscular Hgb 27.9 pg (27.0-32.0); Mean Corpuscular Volume 87.7 fL (81-99); Mean Platelet Vol. 11.5 fl (6.2-12.0); Platelet Count 203 K/mm3 (150-450); RBC Distribution Width CV 13.3 % (11.6-14.6); RBC Distribution Width SD 42.1 fl (35.1-43.9); Red Blood Count 3.01 M/mm3 (4.2-5.4); White Blood Count 13.8 K/mm3 (4.4-11.0)
--- NOTE | 2023-07-17 08:28 | PCM.PN.CNM ---
Subjective Subjective Patient seen at bedside. Sitting up in chair at bedside. with support. Voided for the first time since zamora out. Pain controlled at this time. Objective Data Objective Data Vital Signs: Vital Signs Temp Pulse Resp BP Pulse Ox O2 Del Method 98.3 F 80 16 113/64 98 Room Air 07/16/23 17:35 07/17/23 04:08 07/17/23 05:01 07/17/23 04:08 07/17/23 07:35 07/17/23 05:01 Oxygen Delivery Method Room Air Weight: 224 lb Body Mass Index (BMI) 37.3 Intake & Output: Intake and Output for Last 24 Hours 07/15/23 07/16/23 07/17/23 23:59 23:59 23:59 Intake Total 1591.64 / 1591.64 1500 / 1500 Output Total 1500 / 1500 1150 / 1150 Balance 91.64 / 91.64 350 / 350 Lab / Micro Data 07/17/23 04:55 Labs: Laboratory Results - last 24 hr 07/16/23 09:30: Urine Opiates Screen NEGATIVE, Urine Methadone Screen NEGATIVE, Ur Barbiturates Screen NEGATIVE, Ur Phencyclidine Scrn NEGATIVE, Ur Amphetamines Screen NEGATIVE, MDMA (Ecstasy) Screen NEGATIVE, U Benzodiazepines Scrn NEGATIVE, Urine Cocaine Screen NEGATIVE, U Cannabinoids Screen NEGATIVE, Ur Drug Screen Comment 07/16/23 09:40: WBC 13.4 H, RBC 3.49 L, Hgb 9.9 L, Hct 30.6 L, MCV 87.7, MCH 28.4, MCHC 32.4, RDW Std Deviation 42.8, RDW Coeff of Elvia 13.3, Plt Count 237, MPV 11.7, Immature Gran % (Auto) 0.500, Neut % (Auto) 69.6, Lymph % (Auto) 19.8, [place] % (Auto) 6.9, Eos % (Auto) 2.8, Baso % (Auto) 0.4, Absolute Neuts (auto) 9.3 H, Absolute Lymphs (auto) 2.66, Nucleated RBC % 0, Syphilis Total Ab Non-reactive, Blood Type O POSITIVE, Antibody Screen NEGATIVE 07/17/23 04:55: WBC 13.8 H, RBC 3.01 L, Hgb 8.4 L, Hct 26.4 L, MCV 87.7, MCH 27.9, MCHC 31.8 L, RDW Std Deviation 42.1, RDW Coeff of Elvia 13.3, Plt Count 203, MPV 11.5 ROS Eyes Eyes: Denies blurry vision, change in vision or spots in vision ENT HEENT: Denies dizziness or headache(s) Cardiovascular Cardiovascular: Denies abdominal pain, chest pain or dyspnea Respiratory/Chest Respiratory/Chest: Denies cough, dyspnea, shortness of breath at rest or shortness of breath with exertion Gastrointestinal Gastrointestinal: Denies abdominal pain, diarrhea or vomiting Genitourinary Genitourinary: Denies change in urinary stream, difficulty urinating or dysuria Musculoskeletal Musculoskeletal: Reports none Integumentary Integumentary: Denies rash Neurologic Neurologic: Denies dizziness, headache(s), memory loss or weakness Assessment & Plan (1) delivery delivered: (2) Anxiety: (3) PTSD (post-traumatic stress disorder): (4) Depression: (5) Bipolar 2 disorder: (6) Drug abuse: COMMENT: @ 39&1 (7) Asthma: (8) Anemia: PLAN: Plan POD 1 Primary C/S Pain control support Continue Subutex PO daily Infant to stay in patient x 5 days
[2023-07-17] MEDS: buprenorphine HCL 8 MG TAB.SUBL SL (10:07)
[2023-07-17] MEDS: Senna/Docusate Sodium 1 Tablet PO (10:08)
--- NOTE | 2023-07-17 14:33 | CASEMGMT ---
Social Work Assessment Labor and Delivery Unit Patient Address: [address] [place] [address] Phone number: [phone] Date of Referral: 07/16/23 Time of Referral:? [id number] Referred By: Matt Alston Date of Intervention: ??07/17/23 Time of Intervention:? 8202 Reason for Referral:? substance abuse Sw completed chart review and acknowledges social work consult due to substance use. Sw presented to bedside and introduced self to mother of baby (ALLYN- Angelic) and explained sw role. Sw completed psychosocial assessment and informed MOB of need for sw to make referral to [facility]. MOB expressed understanding. History obtained from: medical records, MOB Household composition: ALLYN is currently in housing accommodations provided by [facility]. MOB states that she is in a house with three bedrooms, and lives with two other women. Patient's parent/guardian status: MOB reports that she and FOB were not in a relationship when she got with baby. MOB states that they had only seen each other a couple of times. MOB states that although she did not plan on getting she welcomed the . MOB reports that she and FOB are not in a relationship at this time and she does not believe that FOB has any intentions of co-parenting. MOB denies that sexual relationship or was coerced. ? ? Medical History: ALLYN is 33 year old female who is 5, para 2- now 3 following labor and delivery of . ALLYN received routine care during with [facility]. ALLYN presented to hospital on 07/16/23 for an induction of labor. MOB required emergency after baby had non-reassuring heart tones. Baby was born on 07/16/23 at 39 weeks gestation. Baby, named Leonardo Mcgrath, was born weighing 7lb 15oz with apgars of 8 and 9 at one and five minutes of life, respectfully. MOB has indicated that baby will be followed by Dr. Khoury for pediatrics. ALLYN is intending on breast feeding and states that she is trying. staff report that they have attempted to help her several times but she refuses help. ? Educational Status:? MOB states that she graduated from high school and has some college courses, but did not graduate. Financial Status: MOB is unemployed. Supplies:?? MOB states that she has obtained everything that she needs for baby, including: car seat, safe sleep space, clothes, diapers and wipes. Childcare/Caregiver(s):? ALLYN states that she will be the primary caregiver to baby. Transportation:??ALLYN does not drive and has assistance provided through [facility] to help her get to scheduled appointments. Programs/Agencies Involved: ???ALLYN is receiving housing, substance use and mental health treatment through [facility]. ALLYN states that she has completed residential, PHP and IOP programs at [facility] and is now connected to [facility], peer support and regular appointments with Dr. Ott. ALLYN is receiving insurance through Medicaid ([employer]), SNAP and WIC. ALLYN also reports that she is on the wait list for [facility]. Children Services/Legal Issues:??? ALLYN states that she does have children services involvement after the delivery of her last baby. ALLYN states that she has two other children (Maury, 8y/o and Ananda, 3 y/o). ALLYN states that she was able to recognize that the best thing for Maury was if he was cared for by someone else, so at this time she remains his guardian but he is living with maternal grandma. MOB states that Ananda was born addicted and was taken out of her custody and placed into care of one of her friends. MOB states that she has regular visits with him. - Anne informed ALLYN that due to her substance use history, and current involvement with [facility] and a subutex program, sw is going to be making a referral to [facility]. ALLYN expressed understanding. - Anne called [facility] and spoke to hotline screener: Feli. Behavioral Health Issues: ??Mental Health History: ALLYN states that she has been diagnosed with anxiety, depression, Bipolar and PTSD. MOB reports that she is on psychotropic medications to help space systems operations manager her mental healthy symptoms. MOB states that she is receiving mental health services provided by [facility]. ??? Substance Use History: ALLYN has significant substance use history that includes IV Heroin use, cocaine and marijuana. MOB reports that she has been sober since May. MOB states that she is active in suboxone treatment program, and has been taking subutex since becoming . ?? Family History:?MOB denies family history of substance use and significant mental health history. ? Drug Screens: MOB and baby urine screens were negative at delivery. ?? Family/Social Stressors:? This is third baby for MOB. MOB reports to have custody of oldest child, but is in the care of maternal grandma. MOB does not have custody of second child due to child experiencing CHAIM due to MOB substance use during . ALLYN has been in sober housing and in substance use treatment program with [facility] since May of 2022. MOB delivered baby, urine screens were negative at delivery, baby meconium still pending. Since delivery MOB has not been welcoming to staff, and has been stating that she is too tired to feed baby and wants to sleep. Baby is being monitored every three hours using Eat Sleep and Console to monitor for signs of withdrawal. Support Systems: ALLYN has friends, lab support technician and mental health professionals at [facility], and her mother who she reports is supportive. Depression/Shaken Baby/Safe Sleeping:? Sw educated MOB on signs and symptoms of baby blues and depression. ALLYN states that she did experience depression after her other two deliveries. ALLYN completed Sabine Depression Scale and her score was a 7. Sw provided education and support. Sw provided MOB with literature for her to review about signs and symptoms to be on the lookout for and encouraged her to keep in contact with the supports that she listed. Sw educated MOB on shaken baby prevention and ABCs of safe sleep. MOB expressed understanding. ASSESSMENT:? MOB was in bed when sw presented to bedside to complete assessment and baby was in bassinet. MOB was flat in presentation and participated in completion of assessment, but did not provide a lot of additional information other than answering questions asked. MOB did pick baby up when he started to stir, she did not feed him. Other staff have reported that MOB gets defensive when she is told it is time to do things such as routine baby care, baths, and when it has been past time for baby to feed. MOB has been informed by sw that a referral to children services is necessary, MOB has expressed understanding. Safe Plan of Care for infant related to substance use:? MOB involved in outpatient substance use and mental health treatment. Residing in sober housing at this time. PLAN:? Sw will remain involved throughout admission to assess for any ongoing needs or concerns and will assist with discharge planning. ?No other services requested or indicated. Jessica Lackey, HIGH SCHOOL COORDINATOR, HAND TUBE BENDER
[2023-07-17] MEDS: Ibuprofen 600 MG Tablet PO ×2 (15:44→21:29)
[2023-07-17] MEDS: Prazosin HCl 1 MG Capsule PO (21:29)
[2023-07-17] MEDS: Gabapentin 100 MG Capsule PO (21:29)
[2023-07-17] MEDS: FLUOXETINE HCL PO (21:31)
[2023-07-17] MEDS: OLANZAPINE PO (21:31)
[2023-07-18] MEDS: Acetaminophen 500 MG Tablet 1000 MG PO ×3 (00:11→12:05)
[2023-07-18 02:21] VITALS: BP 118/65; PULSE 81; RESP 16
[2023-07-18] MEDS: Enoxaparin 40 MG/0.4 ML Syringe SC (04:27)
[2023-07-18] MEDS: Ibuprofen 600 MG Tablet PO ×2 (04:27→09:26)
--- NOTE | 2023-07-18 07:38 | PN.OBGYN_ITS ---
Subjective Subjective Patient seen at bedside. Sitting in chair at bedside with . with minimal support. Ambulating and voiding without difficulty. Passing minimal flatus. Pain is minimal and controlled with Tylenol and Motrin. to stay 5 days post delivery due to patient taking subutex. Objective Data Objective Data Vital Signs: Vital Signs Temp Pulse Resp BP Pulse Ox O2 Del Method 97.2 F L 81 16 118/65 99 Room Air 07/17/23 20:49 07/18/23 02:21 07/18/23 02:21 07/18/23 02:21 07/17/23 15:50 07/18/23 02:21 Oxygen Delivery Method Room Air Weight: 224 lb Body Mass Index (BMI) 37.3 Intake & Output: Intake and Output for Last 24 Hours 07/16/23 07/17/23 07/18/23 23:59 23:59 23:59 Intake Total 1591.64 / 1591.64 1500 / 1500 Output Total 1500 / 1500 1950 / 1950 Balance 91.64 / 91.64 -450 / -450 Lab / Micro Data 07/17/23 04:55 ROS Eyes Eyes: Denies blurry vision, change in vision or spots in vision ENT HEENT: Denies dizziness or headache(s) Cardiovascular Cardiovascular: Denies abdominal pain, chest pain or dyspnea Respiratory/Chest Respiratory/Chest: Denies cough, dyspnea, shortness of breath at rest or shortness of breath with exertion Gastrointestinal Gastrointestinal: Denies abdominal pain, diarrhea or vomiting Genitourinary Genitourinary: Denies change in urinary stream, difficulty urinating or dysuria Musculoskeletal Musculoskeletal: Reports none Integumentary Integumentary: Denies rash Neurologic Neurologic: Denies dizziness, headache(s), memory loss or weakness Physical Exam Narrative Dressing is dry and intact Const alert and no apparent distress General Appearance: cooperative and comfortable Exam Limitations: no limitations HEENT normocephalic Eyes General Eye: normal appearance of both eyes Neck full ROM General: normal visual inspection Chest Chest: symmetrical chest wall rise Resp normal respiratory effort and normal air movement Effort and Inspection: symmetric chest movement Auscultation: clear to auscultation bilaterally Cardio regular rate and regular rhythm GI normal to inspection, nondistended, normoactive bowel sounds Back/Spine normal ROM Extremity full ROM and no calf tenderness General Extremity: normal exam except as noted Skin no rashes or lesions noted Neuro CN's II-XII intact bilaterally Psych mental status grossly normal Assessment & Plan (1) delivery delivered: (2) Anxiety: (3) PTSD (post-traumatic stress disorder): (4) Depression: (5) Bipolar 2 disorder: (6) Asthma: (7) Care and examination of lactating mother: PLAN: Plan POD 2 Primary C/S Pain control Increase ambulation support Anticipate discharge/hotel status tomorrow- patient residing at [facility]
[2023-07-18 09:15] VITALS: BP 100/62; PULSE 66; RESP 16; TEMP 36.2; O2SAT 98
[2023-07-18] MEDS: buprenorphine HCL 8 MG TAB.SUBL SL (09:26)
[2023-07-18] MEDS: Senna/Docusate Sodium 1 Tablet PO (09:27)
[2023-07-18 13:03] VITALS: BP 115/65; PULSE 65; RESP 16; TEMP 36.4; O2SAT 97
--- NOTE | 2023-07-18 13:36 | CASEMGMT ---
Labor and Delivery [place] Date of Intervention: 07/18/23 Time of Intervention: 0900, ongoing Intervention: Sw continues to follow patient. Sw received updates from bedside nursing staff and . MOB has required prompting to feed baby, as MOB continues to chose to breast feed . MOB has not engaged or allowed support. Bedside nursing staff report that MOB goes over the recommended 2-3 hour recommended feed time. - Sw [place] [facility] [place] check on status of referral made yesterday (07/17/23). Hotline screener, Samantha, states that a decision regarding that referral has not been determined at this point, but should be looked at later today or tomorrow. Sw asked to be notified regarding decision of referral, and asked that assuming it is screened in that the assigned manager case management calls sw. Samantha expressed understanding. Sw observed MOB walking around the unit with baby in his basinet. Sw asked MOB if she is doing okay and if she needed anything. MOB stated things are going well and baby is doing fine. Nursing staff informed Sw that MOB is medically ready for discharge today, but baby will remain admitted due to requiring to be monitored for 5 days for CHAIM. Baby continues to be all 3's using the Eat Sleep and Console scoring system, but nursing staff have noticed he is tremoring. Even with tremors baby is easy to console. 1320: Sw attempted to reach [facility] to inform them that mutual patient is medically being discharged today, but will remain hotel status. Sw left voicemail and requested returned phone call to provide updates. Assessment: MOB is medically ready for discharge today. Baby will remain admitted through Saturday to continue to be monitored using Eat Sleep and Console scoring to assess for any signs of withdrawal. MOB is not welcoming of support, and feeds have been inconsistent. Although feeds have been inconsistent baby is consolable and his ESC scores have all been 3's. Referral was [facility] to [facility], status of referral unknown at this time. Plan: Sw to get update from [facility] regarding status of referral. Assuming referral will be screened in, updates to be provided to the assigned manager case management (MOB inconsistency with feeds, not accepting help/ support/ education, and baby ESC scores and discharge date). Jessica Lackey, ICE CREAM SHOP ASSOCIATE, QUAD STAYER
== END 2023-07-18 14:30 | disposition home or self-care (01) | DRG 539 ==
PROVIDERS: Advanced Practice Midwife; Admitting Provider Obstetrics & Gynecology; PCP Internal Medicine; Referring Provider Obstetrics & Gynecology; Visit Provider Obstetrics & Gynecology
DX: O76 Abnormality in fetal heart rate and rhythm complicating labor and delivery (principal); O99.324 Drug use complicating childbirth; F14.10 Cocaine abuse, uncomplicated; F12.10 Cannabis abuse, uncomplicated; F17.210 Nicotine dependence, cigarettes, uncomplicated; O69.2XX0 Labor and delivery complicated by other cord entanglement, with compression, not applicable or unspecified; O99.334 Smoking (tobacco) complicating childbirth; O99.344 Other mental disorders complicating childbirth; F43.10 Post-traumatic stress disorder, unspecified; Z56.0 Unemployment, unspecified; Z65.3 Problems related to other legal circumstances; Z37.0 Single live birth; Z3A.39 39 weeks gestation of pregnancy; Z84.89 Family history of other specified conditions
CPT/HCPCS: 59025; 59050; 80307; 85025; 85027; 86780; 86850; 86900; 86901; 88302; 93005; 99221; J7120; G0378; J2405

== ENCOUNTER 2023-08-28 16:50 | Emergency (ER) | payer MEDICAID, SELFPAY ==
[2023-08-28 16:51] VITALS: BP 115/78; PULSE 80; RESP 16; TEMP 36.3; O2SAT 97; BMI 36.8
--- NOTE | 2023-08-28 17:16 | EX.ED.DYSGE1 ---
HPI History of Present Illness Chief Complaint: Chest Other Informant: patient Onset/Context/Timing Onset: Today Context: Sudden Onset Timing: Continuous Quality: Like something is stuck in my chest Location: Right chest Worsened by: Deep breathing Relieved by: Nothing Narrative Narrative: Patient presents with right-sided chest pain that began today. Patient states she had some pain and swelling in her left leg. Patient went to the urgent care yesterday and had an ultrasound done there. Patient states she was diagnosed with superficial phlebitis. Patient states that she has pain over the right side of her chest that is worse with deep breathing. Patient denies any shortness of breath however. Patient denies any fevers or chills. Patient states the pain in her chest feels like something is stuck in her chest. Patient also admits to a mild headache. Patient states she had a 6 weeks ago. Recent Illness/Hospitalization: Yes PFSH PFSH Medical History Wears glasses MRSA infection Bipolar disorder Smoker Lymphocytic colitis Anxiety PTSD (post-traumatic stress disorder) Depression Bipolar 2 disorder Hx MRSA infection Hepatitis B Tumors Recurrent infections Drug abuse Hx: UTI (urinary tract infection) Hx of fracture Asthma Anemia Allergies Alcohol abuse Home Medications ?Medication ?Instructions ?Recorded ?Last Taken ?Type buprenorphine 100 mg/0.5 mL 100 mg subcut QMONTH 07/16/22 Unknown History solution,exten.rel.subcutaneous syringe (Sublocade) prazosin 1 mg capsule 1 mg PO QHS 07/16/22 Unknown History gabapentin 100 mg capsule 400 mg PO Q8H 07/19/22 Unknown History ondansetron 4 mg disintegrating 4 mg PO Q8H PRN nausea and 08/08/22 Unknown Rx tablet vomiting #30 tabs lithium carbonate 150 mg capsule 150 mg PO BID 10/17/22 10/18/22 History pantoprazole 20 mg tablet,delayed 20 mg PO Q12H #60 tabs 10/19/22 Unknown Rx release pantoprazole 20 mg tablet,delayed 20 mg PO Q12H #60 tabs 10/19/22 Unknown Rx release sucralfate 1 gram tablet 1 g PO .bid 12 weeks #60 tabs 10/19/22 Unknown Rx sucralfate 1 gram tablet 1 g PO .bid 4 weeks #60 tabs 10/19/22 Unknown Rx Allergy/AdvReac Type Severity Reaction Status Date / Time amoxicillin (From Augmentin) Allergy Intermediate Hives Verified 08/28/23 16:53 clavulanic acid (From Allergy Intermediate Hives Verified 08/28/23 16:53 Augmentin) penicillin G Allergy Intermediate Hives Verified 08/28/23 16:53 Family History Mother Anemia Cancer cervical/ovarian Grandmother Asthma Breast cancer Parkinsons Poor mental health Father Arthritis Bowel disease colitis Grandfather Colon cancer Diabetes Other Anxiety Surgical History History of tonsillectomy and adenoidectomy [place] teeth removed Social History household members: other details: 180 treatment program current occupational status: unemployed Smoking Status: Current every day smoker tobacco type: cigarettes Electronic Cigarette Use: not used alcohol intake: former year quit: 2014 substance use type: marijuana and crack/cocaine what type of physical activity do you participate in: yoga do you feel safe at home: Yes ROS ROS ED Constitutional Constitutional ED: Denies chills or fever(s) Eyes Eyes: Reports blurry vision; Denies diplopia ENT ENT ED: Denies rhinorrhea or sore throat Cardiovascular Cardiovascular: Reports chest pain; Denies palpitations Respiratory/Chest Respiratory/Chest: Denies cough or dyspnea Gastrointestinal Gastrointestinal: Reports nausea; Denies vomiting Genitourinary Genitourinary ED: Denies dysuria or hematuria Musculoskeletal Musculoskeletal: Reports back pain; Denies neck pain Integumentary Denies abscess or rash Neurologic Neurologic: Reports headache(s) and paresthesias LLE (Left foot); Denies weakness Allergic/Immunologic Allergic/Immunologic ED: Denies mouth swelling or urticaria EXAM Physical Exam Const Vital Signs: 08/28/23 16:51 08/28/23 18:47 Temperature 97.4 F L Temperature Source Temporal Pulse Rate 80 88 Respiratory Rate 16 18 Blood Pressure 115/78 127/84 H Blood Pressure Mean 90 98 Pulse Ox 97 98 Oxygen Delivery Method Room Air Room Air Positive well nourished and well developed General Appearance ED: well developed and NAD HEENT Reports moist mucous membranes Neck supple and no JVD Resp normal respiratory effort and clear to auscultation bilaterally Cardio regular rate and regular rhythm GI non-tender and non-distended Palpation: soft Neuro oriented x3, CN's II-XII intact bilaterally and no sensory deficits noted Sensorium / Orientation: alert Motor Exam: strength 5/5 throughout MDM MDM MDM Narrative Medical decision making narrative: Differential diagnosis includes pulmonary embolism, musculoskeletal pain, GERD, and anxiety. CBC will be obtained to assess for leukocytosis and anemia. Basic metabolic profile will be obtained to assess for hepatic function, renal function, and electrolyte abnormality. Serum hCG will be obtained to assess for . CTA of the chest will be obtained to assess for pulmonary embolism. Lab Data Attestation: I reviewed the patient's lab results. Lab results narrative: CBC was reviewed. There is a slight leukocytosis of 11.6. There is a mild anemia with a hemoglobin of 10.8 and hematocrit 35.2. Platelets are normal. Basic metabolic profile was reviewed and was within normal limits. Serum hCG was reviewed and was negative. Labs: Laboratory Results - last 24 hr 08/28/23 17:40 WBC 11.6 H RBC 4.16 L Hgb 10.8 L Hct 35.2 L MCV 84.6 MCH 26.0 L MCHC 30.7 L RDW Std Deviation 45.1 H RDW Coeff of Elvia 14.6 Plt Count 300 MPV 10.4 Immature Gran % (Auto) 0.300 Neut % (Auto) 63.3 Lymph % (Auto) 25.5 [place] % (Auto) 5.9 Eos % (Auto) 4.7 Baso % (Auto) 0.3 Absolute Neuts (auto) 7.4 Absolute Lymphs (auto) 2.96 Nucleated RBC % 0 Sodium 137 Potassium 4.0 Chloride 103 Carbon Dioxide 31.0 Anion Gap 3 L BUN 10 Creatinine 0.73 Estim Creat Clear Calc 131.11 Est GFR (MDRD) Af Amer 120 Est GFR (MDRD) Non-Af 99 BUN/Creatinine Ratio 13.7 Glucose 108 H Calcium 9.5 Serum , Qual NEGATIVE Radiography CTA PE Study: No Evidence of PE and No Evidence of Dissection Diagnostic Testing: Clinical Impression(s) from Imaging Studies Chest CTA 08/28/23 17:20 IMPRESSION: Minor subsegmental atelectasis in the right lower lobe No evidence for pulmonary embolus or other acute abnormality. Electronically Signed: Bryan Enriquez MD at 18:40 EDT , CTA of the chest was obtained. There is no evidence of pulmonary embolism or aortic dissection. There is mild subsegmental atelectasis in the right lower lobe. This was interpreted by the radiologist was also independently reviewed by myself. Treatment and Re-Evaluation :: Smoking cessation was discussed. Patient was advised of her findings. Patient was instructed to take 10-15 deep breaths every hour while awake. Patient was instructed to follow-up with her primary care physician in 5 to 7 days. Patient was instructed to take Tylenol or ibuprofen as needed for pain. Patient understood and was agreeable with the plan. All questions were answered. Discharge Plan Triage Chief Complaint: Chest Other ED Provider: Henry Eller Dx/Rx/DC Orders Clinical Impression: Chest pain of uncertain etiology, Tobacco use disorder Prescriptions: No Action gabapentin 100 mg capsule 400 mg PO Q8H Sublocade 100 mg/0.5 mL solution, extended rel syringe 100 mg subcut QMONTH prazosin 1 mg capsule 1 mg PO QHS lithium carbonate 150 mg capsule 150 mg PO BID sucralfate 1 gram tablet 1 g PO .bid 28 Days Qty: 60 0RF pantoprazole 20 mg tablet,delayed release (DR/EC) 20 mg PO Q12H Qty: 60 2RF sucralfate 1 gram tablet 1 g PO .bid 84 Days Qty: 60 0RF pantoprazole 20 mg tablet,delayed release (DR/EC) 20 mg PO Q12H Qty: 60 3RF ondansetron 4 mg tablet,disintegrating 4 mg PO Q8H PRN (Reason: nausea and vomiting) Qty: 30 0RF Primary Care Provider: Sera Ott Referrals: Sera Ott DO [Primary Care Provider] - 5-7 Days Print Language: Greenlandic Disposition Disposition: Home, Self Care
--- NOTE | 2023-08-28 17:20 | CT_ITS ---
STUDY: CTA CHEST REASON FOR EXAM: Female, 33 years old. Chest pain RADIATION DOSAGE (If Supplied By Facility): CTDIvol = ( 12.13 ) mGy, DLP = ( 509.17 ) mGycm TECHNIQUE: The examination was performed with the intravenous administration of IV 100mL Isovue-370. Post-processing of the angiographic images was performed, with multiplanar reformation and 3D reconstruction. Individualized dose optimization techniques were used for this CT. COMPARISON: None. FINDINGS: Normal enhancement of the main pulmonary artery and right and left pulmonary arteries. Normal enhancement of the bilateral peripheral pulmonary arteries. There is no demonstrated pulmonary embolism. Normal thoracic aorta and visualized great vessels. There is no demonstrated aortic dissection. Normal heart and pericardium. Normal mediastinum. Normal hilar regions. Normal visualized trachea and bronchi. The lungs are well expanded. Minor subsegmental atelectasis in the right lower lobe Normal pleura. Normal chest wall structures. Old displaced nonhealed fracture of the right transverse process of L1 Small hypoattenuated lesion within the T9 vertebral body without cortical destruction most likely benign. Normal visualized upper abdomen. CT/CTA Chest W/WO Contrast IMPRESSION: Minor subsegmental atelectasis in the right lower lobe No evidence for pulmonary embolus or other acute abnormality. Electronically Signed: Bryan Enriquez MD at 18:40 EDT ,
[2023-08-28 17:58] LABS: Absolute Lymphocyte Count 2.96 X10^3/uL (0.83-4.51); Absolute Neutrophil Count 7.4 X10^3/uL (2.0-7.7); Basophil# 0.04 X10^3/uL; Basophil% 0.3 % (0-1); Eosinophil# 0.55 X10^3/uL; Eosinophils% 4.7 % (0-5); Hematocrit 35.2 % (37-47); Hemoglobin 10.8 g/dL (12.0-15.0); Lymphocyte # 2.96 X10^3/ul (0.83-4.51); Lymphocyte % 25.5 % (19-41); Mean Corp Hgb Conc 30.7 g/dL (32-36); Mean Corpuscular Volume 84.6 fL (81-99); Mean Platelet Vol. 10.4 fl (6.2-12.0); Monocyte# 0.68 X10^3/uL; Monocyte% 5.9 % (0-10); NRBC Flagged by Analyzer 0 % (0-5); Neutrophil # 7.35 X10^3/uL (2.7-7.7); Neutrophil % 63.3 % (47-70); Platelet Count 300 K/mm3 (150-450); RBC Distribution Width CV 14.6 % (11.6-14.6); RBC Distribution Width SD 45.1 fl (35.1-43.9); Red Blood Count 4.16 M/mm3 (4.2-5.4); White Blood Count 11.6 K/mm3 (4.4-11.0)
[2023-08-28 18:05] LABS: Internal QC Validated? YES +Cl - CLEAR BKGD; Pregnancy, Serum, hCG Quali. NEGATIVE Negative
[2023-08-28 18:11] LABS: Anion Gap 3 (5-15); BUN 10 mg/dL (7-18); BUN/Creat Ratio 13.7 RATIO (10-20); Calcium,Total 9.5 mg/dL (8.5-10.1); Chloride 103 mmol/L (98-107); Creatinine, Serum 0.73 mg/dL (0.55-1.02); EST Glomerular Filtration Rate 99 mL/min (>60); Est Glom Filt Rate - Afr Amer 120 mL/min (>60); Estimated Creatinine Clearance 131.11 ml/min; Glucose 108 mg/dL (74-106); Sodium Level 137 mmol/L (136-145)
[2023-08-28 18:47] VITALS: BP 127/84; PULSE 88; RESP 18; O2SAT 98
[2023-08-28 20:00] VITALS: BP 131/83; PULSE 76; RESP 18; O2SAT 95
[2023-08-28 20:31] VITALS: BP 131/83; PULSE 72; RESP 18; TEMP 36.3; O2SAT 95
== END 2023-08-28 20:31 | disposition home or self-care (01) ==
PROVIDERS: Emergency Provider Emergency Medicine; PCP Family Medicine; Visit Provider Emergency Medicine
DX: R07.9 Chest pain, unspecified (principal); F31.9 Bipolar disorder, unspecified; J45.909 Unspecified asthma, uncomplicated; F12.90 Cannabis use, unspecified, uncomplicated; F17.210 Nicotine dependence, cigarettes, uncomplicated
CPT/HCPCS: 71275; 80048; 84703; 85025; 99283; Q9967

== ENCOUNTER 2025-01-28 18:48 | Emergency (ER) | payer MEDICAID, SELFPAY ==
[2025-01-28 18:48] VITALS: BP 138/89; PULSE 96; RESP 18; TEMP 36.3; O2SAT 100; BMI 41.0
[2025-01-28] MEDS: 0.9% Normal Saline (1000mL) 1,000 ML 999 ML IV (19:26)
[2025-01-28 19:35] LABS: Hematocrit 36.1 % (37-47); Hemoglobin 11.5 g/dL (12.0-15.0); Immature Granulocytes Count 0.020 X10^3/uL (0.0-0.0); Mean Corp Hgb Conc 31.9 g/dL (32-36); Mean Corpuscular Volume 87.6 fL (81-99); Mean Platelet Vol. 11.0 fl (6.2-12.0); NRBC Flagged by Analyzer 0 % (0-5); Platelet Count 246 K/mm3 (150-450); RBC Distribution Width CV 15.4 % (11.6-14.6); RBC Distribution Width SD 49.5 fl (35.1-43.9); Red Blood Count 4.12 M/mm3 (4.2-5.4); White Blood Count 9.6 K/mm3 (4.4-11.0)
[2025-01-28 19:44] LABS: Internal QC Validated? YES +Cl - CLEAR BKGD
[2025-01-28 19:45] LABS: Pregnancy, Serum, hCG Quali. NEGATIVE Negative; Record Kit Lot#, Serum Preg. 0000980607
[2025-01-28 19:49] LABS: Mucous, Urine 0 SEEN /hpf (<or=2+)
[2025-01-28 19:55] LABS: AST(SGOT) 22 U/L (<=31); Alanine Aminotransfer ALT/SGPT 12 U/L (<=34); Albumin, Serum 4.4 g/dL (3.5-5.0); Alkaline Phosphatase 61 U/L (35-104); Anion Gap 9 (5-15); BUN 12 mg/dL (4-19); BUN/Creat Ratio 15.2 RATIO (10-20); Calcium,Total 9.4 mg/dL (7.6-11.0); Carbon Dioxide 23.7 mmol/L (21.0-32.0); Chloride 101 mmol/L (98-108); Estimated Creatinine Clearance 132.47 ml/min (50-250); Globulin 3.1 g/dL (2.2-4.2); Glucose 110 mg/dL (70-99); Lipase 17 U/L (13-75); Potassium 4.1 mmol/L (3.3-5.1)
--- NOTE | 2025-01-28 19:55 | CT_ITS ---
PROCEDURE: ABDOMEN/PELVIS W IV CONT ONLY 01/28/2025 REASON FOR EXAM: EPIGASTRIC AND LLQ PAIN TECHNIQUE: Procedure Code: [id number] Modality: CT Procedure: ABDOMEN/PELVIS W IV CONT ONLY Coronal and Sagittal reconstruction series were provided. CONTRAST: Isovue 370 VOLUME: 98 mL One or more dose reduction techniques were used (e.g., Automated exposure control, adjustment of the mA and/or kV according to patient size, use of iterative reconstruction technique. RADIATION DOSE SUMMARY: CTDlvol: 13+ 22 mGy DLP: 1222 mGycm COMPARISON: 08/06/2022. FINDINGS: The peripheral soft tissues unremarkable. Lung bases are clear. Mild degenerative changes of the visualized spine. Normal caliber abdominal aorta. No suspicious lymphadenopathy. The liver, gallbladder, pancreas, spleen, and adrenals unremarkable. Symmetric enhancement of the bilateral kidneys. No hydroureteronephrosis. Concentric urinary bladder wall thickening suspicious for cystitis. Correlate with urinalysis. Anteverted uterus. Normal caliber large and small bowel without surrounding inflammatory changes. Dense colonic stool suspicious for constipation. CT/Abdomen/Pelvis W IV Cont ONLY IMPRESSION: Concentric urinary bladder wall thickening suspicious for cystitis. Correlate with urinalysis. Dense colonic stool suspicious for constipation. Reading Location: [id number]
[2025-01-28 19:57] LABS: Color, Urine Yellow (Yellow); Glucose, Dipstick Normal (Normal); Ketone-Dipstick Negative (Negative); Leukocyte Esterase-Dipstick Negative /ul (Negative); Nitrite-Dipstick Negative (Negative); Occult Blood-Urine Negative /ul (Negative); Protein-Dipstick 15 mg/dl (Negative); Specific Gravity, Urine 1.005 (1.002-1.030); Urine Bilirubin Dipstick Negative (Negative)
[2025-01-28 20:05] LABS: Red Blood Cells-Urine 0-5 SEEN /hpf (0-5); Squamous Epithelial Cells - UA 0-5 SEEN /hpf (5-10)
--- OUTSIDE RECORDS SUMMARY | 2025-01-28 20:12 | XMS RPT_ITS | CCD ---
Author Organization [facility] CliniSyri Care Team Providers Care Bible Worker Name Role Phone KEL COLTON Unavailable Unavailable JOIE SUAZO Unavailable Unavailable YEN SUAZOYSTAL Unavailable Unavailable RADHA PLUNKETT Unavailable Unavailable ARJUN RADHA Unavailable Unavailable GABRIELE JOIE Unavailable Unavailable [facility] Unavailable Unavailable NO REFERRING DR Unavailable Unavailable LALA, NATALIA Unavailable Unavailable ABRAHAM PRITCHARD Unavailable Unavailable JOIE SUAZO M Unavailable Unavailable EMMA CALDERON Attending Unavailable JOIE SUAZO Primary Care Unavailable ERAN STEVENS Attending Unavailable TERESA GONGORA Primary Care Unavailable ALAHMAD, ALAA Admitting Unavailable UNKNOWN, PROVIDER Attending Unavailable ETRESA GONGORA Primary Care Unavailable COBY LAURA Attending Unavailable TERESA GONGORA Primary Care Unavailable KINGSTON ZHENG Attending Unavailable RECTERESA VO Primary Care Unavailable RECTERESA VO Primary Care Unavailable OLGA JULIEN Attending Unavailable Teresa Gongora Primary Care Provider [phone] Teresa Gongora Primary Care Provider Teresa Gongora MD Primary Care Provider TERESA GONGORA Primary Care Unavailable DEANGELO VIDES Attending Unavailable RECTERESA VO Primary Care Unavailable RECTERESA VO Primary Care Unavailable NIA CASTILLO Admitting Unavailable NIA CASTILLO Attending Unavailable ARYAN FITZGERALD Unavailable VLADISLAV HAYWOOD Attending Unavailable NATHAN TORRES Admitting Unavailable RECTERESA VO Primary Care Unavailable ASHTYN TOURE Consulting Unavailabl e EMMA ERVIN Attending Unavailable EMMA ERVIN Admitting Unavailable Mona, Marco Unavailable Klaus Magana Unavailable Mona, Marco Primary Care Unavailable Yadi, Ms. Garcia Sharonmello Attending Jasiel Grullon, Ms. Garcia Zak Attending Unavai lable Mona, Marco Primary Care Unavailable Americo Fowlerna Attending Provider Unavailable Dr. Mary Myers Attending Provider Care Physician, No Primary Primary Care Provider Unavailable Care Physician, No Primary Referring Provider Un available Dr. Mary Myers Primary Care Provider Dr. Mary Myers Referring Provider [phone] Dr. Luis Daniel Hutton Attending Provider [phone] Dr. Luis Daniel Hutton Other Provider [phone] Usman Palomo Unavailable Mary Myers MD Primary Care Provider [phone] Mary Myers MD Primary Care Provider [phone] Dr. Mary Myers Primary Care Provider Dr. Matt Kramer Admit Provider Dr. Matt Kramer Referring Provider [phone] Matt Kramer Other Provider ZAIDA Tapia Attending Provider Matt Kramer Admitting Unavailable Nadia Tapia Attending Unavailable Matt Kramer Consulting Unavailable Matt Kramer Referring Unavailable Mary Myers Primary Care Unavailable Emma Mcclure Attending Unavailable Labor, Amilcar Primary Care Unavailable Labor, Amilcar Referring Unavailable Emma Mcclure Attending Unavailable Labor, Amilcar Primary Care Unavailable Labor, Amilcar Referring Unavailable Labor, Amilcar Referring Unavailable Emma Mcclure Attending Unavailable Labor, Amilcar Primary Care Unavailable Matt Kramer Referring Unavailable Matt Kramer Admitting Unavailable Matt Kramer Attending Unavailable Denver, Mary Primary Care Unavailable Henry Eller Attending Unavailable Labor, Amilcar Primary Care Unavailable Mg LLOYD, Judie Perkins Primary Care Provider Mikhail Mckeon MD Unavailable [phone] [employer]Ema LEIVA Unavailable Rudjosette PA-C, Amilcar Primary Care Provider SELF Referring Unavailable RUDERT, AMILCAR Attending Unavailable RUDERT, AMILCAR Primary Care Unavailable RUDERT, AMILCAR Attending Unavailable RUDERT, AMILCAR Primary Care Unavailable RUDERT, AMILCAR Primary Care Unavailable RUDERT, AMILCAR Attending Unavailable RUDERT, AMILCAR Primary Care Unavailable JANET RODAS Referring Unavailable RODASJANET Attending Unavailable RUDERT, AMILCAR Primary Care Unavailable RODASDOMINIQUEJANET D Referring Unavailable RUDERT, AMILCAR Primary Care Unavailable BENDARAM, TORSTEN SOMERS Referring Unavaila ble RUDERT, AMILCAR Primary Care Unavailable SHAANARAM, TORSTEN SOMERS Attending Unavaila JUDIE Martin Primary Care Unavailab MIKHAIL Benson Referring Unavailable SHANEL BRADFORD Attending Unavailable JUDIE HOLLIDAY Primary Care Unavailab MIKHAIL Benson Referring Unavailable SHANEL BRADFORD Attending Unavailable RUDERT, AMILCAR Primary Care Unavailable RUDERT, AMILCAR Referring Unavailable RUDERT, AMILCAR Primary Care Unavailable RODASDOMINIQUEJANET D Referring Unavailable RUDERT, AMILCAR Primary Care Unavailable RODAS JANET D Referring Unavailable RODAS JANET D Attending Unavailable RUDERT, AMLICAR Primary Care Unavailable RUDERT, AMILCAR Referring Unavailable RODAS JANET D Attending Unavailable RUDERT, AMILCAR Primary Care Unavailable RODAS, JANET D Referring Unavailable RUDERT, AMILCAR Primary Care Unavailable RODAS, JANET D Referring Unavailable ORDAS, JANET D Attending Unavailable RUDERT, AMILCAR Primary Care Unavailable BENDARAM, TORSTEN SOMERS Referring Unavaila ble RUDERT, AMILCAR Primary Care Unavailable RUDERT, AMILCAR Referring Unavailable RUDERT, AMILCAR Primary Care Unavailable MIKHAIL MCKEON Referring Unavailable RUDERT, AMILCAR Primary Care Unavailable RUDERT, AMILCAR Referring Unavailable RUDERT, AMILCAR Primary Care Unavailable RUDERT, AMILCAR Referring Unavailable JUDIE HOLLIDAY Primary Care Unavailab le RUDERT, AMILCAR Primary Care Unavailable RUDJOSETTE, AMILCAR Referring Unavailable NAKUL, TORSTEN SOMERS Attending Unavaila ble JUDIE HOLLIDAY Primary Care Unavailab JUDIE Menjivar Referring Unavailab le RUDERT, AMILCAR Primary Care Unavailable RAMONA, MIKHAIL KRAMER Referring Unavailable VINAYAK, SHANEL Attending Unavailable JUDIE HOLLIDAY Primary Care Unavailab le RAMONA, MIKHAIL KRAMER Referring Unavailable VINAYAK, SHANEL Attending Unavailable JUDIE HOLLIDAY Primary Care Unavailab le RAMONA, MIKHAIL KRAMER Referring Unavailable VINAYAK, SHANEL Attending Unavailable RUDERT, AMILCAR Primary Care Unavailable BENDARAM, TORSTEN SOMERS Attending Unavaila ble RUDJOSETTE, AMILCAR Primary Care Unavailable RAMONA, MIKHAIL KRAMER Referring Unavailable RAF GARLAND Attending Unavailable RUDERT, AMILCAR Primary Care Unavailable RUDERT, AMILCAR Primary Care Unavailable BENDARAM, TORSTEN YONIS Referring Unavaila PHYLLIS Hodge Attending Unavailable JUDIE HOLLIDAY Primary Care Unavailab le RAMONA, MIKHAIL KRAMER Referring Unavailable VINAYAK, SHANEL Attending Unavailable JUDIE HOLLIDAY Attending Unavailab MARY Haque Primary Care Unavailable RAMONA, MIKHAIL KRAMER Referring Unavailable JUDIE HOLLIDAY Primary Care Unavailab le RAMONA, MIKHAIL KRAMER Attending Unavailable JUDIE HOLLIDAY Referring Unavailab JUDIE Menjivar Primary Care Unavailab le RAMONA, MIKHAIL KRAMER Referring Unavailable JUDIE HOLLIDAY Primary Care Unavailab JUDIE Menjivar Attending Unavailab JUDIE Menjivar Primary Care Unavailab le RAMONA, MIKHAIL KRAMER Attending Unavailable JUDIE HOLLIDAY Primary Care Unavailab le RAMONA, MIKHAIL KRAMER Attending Unavailable JUDIE HOLLIDAY Primary Care Unavailab le RAMONA, MIKHAIL KRAMER Referring Unavailable JUDIE HOLLIDAY Primary Care Unavailab le RAMONA, MIKHAIL KRAMER Attending Unavailable RUDJOSETTE, AMILCAR Primary Care Unavailable RAMONA, MIKHAIL KRAMER Attending Unavailable RUDJOSETTE, AMILCAR Primary Care Unavailable ALCIDES MURCIA Attending Unavailable RAMONA, MIKHAIL KRAMER Referring Unavailable RUDJOSETTE, AMILCAR Primary Care Unavailable Allergies Allergy Classification Reported Allergen(s) Allergy Type Date of Onset Reaction(s) Facility Acetaminophen / HYDROcodone (4 sources) Acetaminophen / HYDROcodone Drug Allergy 6 [facility] Opioid Agonists (2 sources) traMADol Drug Allergy 6 [facility] Penicillins (antibiotic) (2 sources) Penicillins Drug Allergy 6 [facility] Work Phone: (4 sources) amoxicillin / clavulanate; Translations: [AUGMENTIN] Drug Allergy 3 Rash, [facility] Repository (1 source) HYDROcodone; Translations: [HYDROCODONE] Drug Allergy [facility] Repository (4 sources) Penicillins; Translations: [PENICILLINS] Propensity to adverse reactions (disorder) 6 [facility] Repository (20 sources) traMADol; Translations: [TRAMADOL] Drug Allergy 6 Vomiting [facility] Repository (20 sources) Acetaminophen / HYDROcodone; Translations: [HYDROCODONE-ACET AMINOPHEN] Drug Allergy 6 Other (See Comments), Vomiting [place], [place] (20 sources) Amoxicillin-Pot Clavulanate; Translations: [AMOXICILLIN-POT CLAVULANATE] Propensity to adverse reactions to drug 6 [place], [place] (4 sources) Magnesium-Contain ing Compounds Propensity to adverse reactions to drug 7 [place], [place] (1 source) guaiFENesin / HYDROcodone Drug Allergy Other [facility] (1 source) magnesium citrate Drug Allergy Other [facility] (20 sources) Penicillin; Translations: [PENICILLIN] Drug Allergy 6 [facility] (4 sources) Penicillin G Drug Allergy 3 [facility] (2 sources) Amoxicillin Drug Allergy 3 [facility] (2 sources) Clavulanate Drug Allergy 3 [facility] (1 source) Amoxicillin Drug Allergy 4 [facility] Repository (1 source) Clavulanate Drug Allergy 4 [facility] Repository (1 source) Penicillin Drug Allergy 4 [facility] Repository Medications Current Medications Medication Drug Class(es) Dates Sig (Normalized) Sig (Original) Acetaminophen (3 sources) Start: 09-02-2020 acetaminophen (TYLENOL) tablet 650 mg Start: 11-27-2019 take 1000 mg by mout h every six hours as needed for pain 1,000 mg, Oral, EVERY 6 HOURS PRN, Pain Mild (1-3), Starting Sat11/27/19 at 1156 Start: 11-27-2019 take 650 mg by mouth every four hours as needed for pain, then take 4000 mg by mouth every twenty-four hours as needed for pain 650 mg, Oral, EVERY 4 HOURS PRN, Pain Mild (1-3), Fever, Fever >100.5 F (38 C), Starting Sat11/27/19 at 1156 Maximum dose of acetaminophen is 4000 mg from all sources in 24 hours. ALPRAZolam 0.5 mg oral tablet (2 sources) Benzodiazepine Start: 11-26-2024 End: 11-26-2024 take 2 tablets by mouth once ALPRAZolam (XANAX) 0.5 mg tablet Indications: Symptomatic varicose veins of both lower extremities Take 2 tablets by mouth one time only for 1 dose. 2 tablet 11/26/2024 11/26/2024 Active Start: 11-19-2024 End: 11-19-2024 take 2 tablets by mouth once ALPRAZolam (XANAX) 0.5 mg tablet Indications: Symptomatic varicose veins of both lower extremities Take 2 tablets by mouth one time only for 1 dose. 2 tablet 11/19/2024 11/19/2024 benzocaine 200 mg/ml / menthol 5 mg/ml topical spray (1 source) Standardized Chemical Allergen Start: 11-27-2019 Topical, PRN, Pain, Starting Sat11/27/19 at 1156 Apply to perineal area. Patient is capable and may self administer at bedside. 0.5 ml buprenorphine 200 mg/ml prefilled syringe (20 sources) Partial Opioid Agonist Start: 08-03-2024 SUBLOCA DE 100 mg/0.5 mL injection 08/03/2024 Active Start: 11-21-2023 End: 08-05-2024 inject 300 mg by subcutaneous injection every month SUBLOCADE 300 mg/1.5 mL injection Inject 300 mg subcutaneously once every month. 11/21/2023 08/05/2024 Discontinued Start: 07-16-2022 Buprenorphine (Sublocade) 100 mg/0.5 mL solution, extended rel syringe Active 100 MG SC EVERY MONTH July 16, 2022 12:00am End: 11-26-2023 buprenorphine SL (SUBUTEX) 8 mg subl Dissolve under the tongue once daily. 11/26/2023 Discontinued Comment on above: Dissolve under the t ongue once daily. calcium chloride 0.0014 meq/ml / potassium chloride 0.004 meq/ml / sodium chloride 0.103 meq/ml / sodium lactate 0.028 meq/ml injectable solution (3 sources) Start: 11-27-2019 Intravenous, at 125 mL/hr, CONTINUOUS, Starting Sat11/27/19 at 1215, Start: 11-27-2019 End: 11-27-2019 lactated ringers infusion Start: 11-27-2019 End: 11-27-2019 lactated ringers infusion clindamycin 300 mg oral capsule (5 sources) Lincosamide Antibacterial Start: 08-27-2023 End: 09-06-2023 take 1 capsule by mouth twice daily clindamycin (CLEOCIN) 300 mg capsule Indications: Localized swelling of left lower leg Take 1 capsule by mouth two times a day for 10 days. 20 capsule 0 08/27/2023 09/06/2023 Active Start: 09-24-2022 take 450 mg by mouth three times daily Clindamycin Hcl Active 450 MG PO THREE TIMES A DAY September 24, 2022 12:00am Start: 01-05-2019 End: 01-14-2019 take 3 capsules by mouth every eight hours clindamycin 150 mg oral capsule ; 3 cap(s) orally every 8 hours Quantity: 90 Refills: 0 Ordered: 04-Jan-2019 Rachel Kauffman Start: 04-Jan-2019 End: 13-Jan-2019 Generic Substitution Allowed Comments: Finish all this medication unless otherwise directed by prescriber.Medication should be taken with plenty of water. Comment on above: Finish all this medi cation unless otherwise directed by prescriber.Medication should be taken with plenty of water. cyclobenzaprine hydrochloride 10 mg oral tablet (20 sources) Muscle Relaxant Start: 2024 take 1 tablet by mouth every eight hours as needed cyclobenzaprine (FLEXERIL) 10 mg tablet Take 1 tablet by mouth three times a day as needed for muscle spasm or pain. 30 tablet 1 11/19/2024 Active Start: 05-01-2024 End: 09-08-2024 take 1 tablet by mouth every eight hours as needed cyclobenzaprine (FLEXERIL) 10 mg tablet Take 1 tablet by mouth three times a day as needed for muscle spasm or pain. 30 tablet 1 06/16/2024 09/08/2024 Discontinued (Course of therapy completed) 2 ml dicyclomine hydrochloride 10 mg/ml injection (1 source) Anticholinergic Start: 09-02-2020 dicyclomine (BENTYL) injection 20 mg doxycycline hyclate 100 mg oral tablet (1 source) Tetracycline-class Drug Start: 11-26-2023 End: 12-03-2023 take 1 tablet by mouth twice daily doxycycline (VIBRA-TABS) 100 mg tablet Take 1 tablet by mouth two times a day for 7 days. 14 tablet 11/26/2023 12/03/2023 Active famotidine 40 mg oral tablet (20 sources) Histamine-2 Receptor Antagonist Start: 08-26-2024 take 1 tablet by mouth once daily at bedtime famotidine (PEPCID) 40 mg tablet Indications: RUQ pain Take 1 tablet by mouth daily at bedtime. 30 tablet 2 08/26/2024 Active Start: 01-07-2023 End: 04-13-2024 take 1 tablet by mouth twice daily famotidine (PEPCID) 20 mg tablet Take 1 tablet by mouth two times a day. 60 tablet 1 01/07/2023 04/13/2024 Discontinued Start: 11-27-2019 take 20 mg by mouth twice tom y 20 mg, Oral, 2 TIMES DAILY, First dose on Sat11/27/19 at 1215 Comment on above: [facility] FLUoxetine 20 mg oral capsule (20 sources) Serotonin Reuptake Inhibitor Start: 10-08-2023 take 1 capsule by mouth once FLUoxetine (PROZAC) 20 mg capsule Take 1 capsule by mouth every afternoon. 10/08/2023 Active Start: 07-22-2018 take 1 capsule by mo [facility] once daily FLUoxetine 20 mg oral capsule ; 1 cap(s) orally once a day Quantity: 30 Refills: 0 Ordered: 22-Jul-2018 Janny Moncada Start: 22-Jul-2018 Generic Substitution Allowed gabapentin 100 mg oral capsule (20 sources) Anti-epileptic Agent Start: 07-19-2022 take 400 mg by mouth every eight hours Gabapentin Active 400 MG PO Q8H July 19, 2022 12:00am End: 04-13-2024 take 1 capsule by mouth three times daily gabapentin (NEURONTIN) 100 mg capsule Take 100 mg by mouth three times a day. 04/13/2024 Discontinued take 2 capsules by m outh three times daily gabapentin (NEURONTIN) 100 mg capsule Take 200 mg by mouth three times a day. 0 Active Comment on above: Take 200 mg by mouth three times a day. Take 100 mg by mouth three times a day. hydrOXYzine pamoate 50 mg oral capsule (4 sources) Antihistamine Start: take 1 capsule by mouth twice daily Hydroxyzine Pamoate (Vistaril) 50 mg capsule Active 50 MG PO TWICE A DAY July 16, 2022 12:00am Start: 07-22-2018 take 1 capsule by mo [facility] every six hours as needed hydrOXYzine pamoate 25 mg oral capsule ; 1 cap(s) orally every 6 hours, As needed, anxiety Quantity: 30 Refills: 0 Ordered: 22-Jul-2018 Janny Moncada Start: 22-Jul-2018 Generic Substitution Allowed ibuprofen 600 mg oral tablet (5 sources) Nonsteroidal Anti-inflammatory Drug Start: 11-26-2024 End: 11-29-2024 take 1 tablet by mouth every eight hours ibuprofen (MOTRIN) 600 mg tablet Indications: Symptomatic varicose veins of both lower extremities Take 1 tablet by mouth every 8 hours for 3 days. 9 tablet 11/26/2024 11/29/2024 Active Start: 11-28-2019 take 1 tablet by amanda every eight hours as needed for pain ibuprofen (ADVIL;MOTRIN) 800 MG tablet Take 1 tablet by mouth every 8 hours as needed for Pain 120 tablet 3 11/28/2019 Active Inhalational Spacing Device (1 source) Start: 12-24-2022 End: 12-24-2022 Inhalational Spacing Device Indications: Asthma with acute exacerbation, unspecified asthma severity, unspecified whether persistent 1 Device one time only for 1 dose. 1 Each 0 12/24/2022 12/24/2022 Active Comment on above: 1 Device one time on ly for 1 dose. 1 ml ketorolac tromethamine 15 mg/ml cartridge (3 sources) Nonsteroidal Anti-inflammatory Drug, Cyclooxygenase Inhibitor Start: 09-02-2020 End: 09-07-2020 ketorolac (TORADOL) injection 15 mg Start: 09-02-2020 End: 09-02-2020 ketorolac (TORADOL) injectio n 30 mg Start: 11-27-2019 End: 11-28-2019 30 mg, Intravenous, EVERY 6 HOURS, First dose on Sat11/27/19 at 1215, For 4 doses Do not administer for more than 5 days. lansinoh lanolin ointment (1 source) Start: 11-27-2019 Topical, PRN, Dry Skin, nipple discomfort, Starting Sat11/27/19 at 1156, levothyroxine sodium 0.025 mg oral tablet (20 sources) l-Thyroxi ne Start: 11-11-2024 End: 02-15-2025 take 1 tablet by mouth once daily SYNTHROID 25 mcg tablet Indications: Hypothyroidism, unspecified type Take 1 tablet by mouth once daily. 90 tablet 11/17/2024 02/15/2025 Active Start: 08-26-2024 End: 10-25-2024 take 1 tablet by mouth once daily before breakfast levothyroxine (SYNTHROID) 25 mcg tablet Indications: Abnormal TSH , Hypothyroidism, unspecified type Take 1 tablet by mouth daily before breakfast. 30 tablet 1 08/26/2024 09/30/2024 Discontinued Start: 11-12-2023 End: 08-05-2024 take 1 tablet by mouth once daily in the morning levothyroxine (SYNTHROID) 50 mcg tablet Take 50 mcg by mouth every morning. 11/12/2023 08/05/2024 Discontinued lithium carbonate 600 mg ora l capsule (20 sources) Start: 10-22-2023 lithium carbon ate 600 mg capsule Take 750 mg by mouth at bedtime as needed. 10/22/2023 Active Start: 10-22-2023 take 1 capsule by [facility] every twenty-four hours as needed lithium carbonate 600 mg capsule Take 600 mg by mouth at bedtime as needed. 10/22/2023 Active Start: 08-27-2023 End: 11-26-2023 take 1 tablet by mouth once daily at bedtime lithium carbonate ER 450 mg CR tablet Take 450 mg by mouth daily at bedtime. 08/27/2023 11/26/2023 Discontinued Start: 10-17-2022 take 150 mg by mouth twice dylon ly Davey Carbonate Active 150 MG PO TWICE A DAY October 17, 2022 12:00am LORazepam 0.5 mg oral tablet (1 source) Benzodiazepine Start: 09-03-2020 LORazepam (ATIVAN) tablet 0.5 mg lurasidone hydrochloride 60 mg oral tablet (3 sources) Atypical Antipsychotic Start: 01-01-2023 End: 02-22-2023 take 1 tablet by mouth once daily in the morning lurasidone (LATUDA) 60 mg tab tablet Take 60 mg by mouth every morning. 0 01/01/2023 02/22/2023 Discontinued Comment on above: Take 60 mg by mouth every morning. 24 hr metFORMIN hydrochloride 500 mg extended release oral tablet (11 sources) Biguanide Start: 10-27-2024 End: 05-09-2025 take 1 tablet by mouth once daily at dinner, then take 2 tablets by mouth once daily at dinner metFORMIN ER (GLUCOPHAGE XR) 500 mg 24 hr tablet Indications: Severe obesity (BMI >= 40) (HCC) Take 1 tablet by mouth daily with dinner for 14 days, THEN 2 tablets daily with dinner. 180 tablet 1 10/27/2024 05/09/2025 Active methadone hydrochloride 10 mg oral tablet (3 sources) Opioid Agonist Start: 11-28-2019 End: 11-28-2019 methadone (DOLOPHINE) tablet 10 mg Start: 11-27-2019 End: 11-30-2019 methadone (DOLOPHINE) tablet 20 mg metroNIDAZOLE 500 mg oral tablet (2 sources) Nitroimidazole Antimicrobial Start: 09-02-2020 End: 09-09-2020 metroNIDAZOLE (FLAGYL) tablet 500 mg montelukast 10 mg oral tablet (19 sources) Leukotriene Receptor Antagonist Start: 09-30-2024 End: 11-04-2024 take 1 tablet by mouth once daily at bedtime montelukast (SINGULAIR) 10 mg tablet Indications: Mild intermittent asthma without complication (HCC) Take 1 tablet by mouth daily at bedtime. 90 tablet 1 11/04/2024 Active Start: 03-07-2020 take 1 tablet by amanda th once daily montelukast (SINGULAIR) 10 MG tablet Indications: Mild persistent asthma without complication TAKE 1 TABLET BY MOUTH EVERY DAY 30 tablet 5 03/07/2020 Active Start: 06-08-2019 take 1 tablet by amanda th once daily montelukast (SINGULAIR) 10 MG tablet Indications: Mild persistent asthma without complication TAKE 1 TABLET BY MOUTH EVERY DAY 30 tablet 5 06/08/2019 Active 24 hr nicotine 0.583 mg/hr transdermal system (2 sources) Cholinergic Nicotinic Agonist Start: 09-02-2020 nicotine (NICODERM CQ) 14 MG/24HR 1 patch Start: 11-27-2019 apply 1 dose transde rmal route once daily 1 patch, Transdermal, Administer over 24 Hours, DAILY, First dose on Sat11/27/19 at 1215 Apply new patch to nonhairy, clean, dry skin on the upper body or upper outer arm. Rotate patch sites. Notify pharmacy if patient or provider prefers patch to be removed at bedtime and replaced in the morning. Hazardous Medication -- Refer to facility policy for handling and disposal. OLANZapine 2.5 mg oral tablet (3 sources) Atypical Antipsychotic Start: 09-02-2020 take 2.5 mg by mouth once daily 2.5 mg, Oral, NIGHTLY, First dose on Sat09/02/20 at 2345 Olanzapine-Samidorph an (2 sources) Start: 07-19-2022 Olanzapine-Samidorp lewis (Lybalvi) 10-10 mg tablet Active 1 TABLET PO July 19, 2022 12:00am On Hold: Order Changed ondansetron (ZOFRAN-ODT) disintegrating tablet 4 mg (1 source) Start: 09-02-2020 ondansetron (ZOFRAN-ODT) disintegrating tablet 4 mg oxytocin (PITOCIN) 30 units in 500 mL infusion (1 source) Start: 11-27-2019 1 jose raul-units/min (1 mL/hr), Intravenous, at 1 mL/hr, CONTINUOUS, Starting Sat11/27/19 at 1215 For Post Use Only Give 166ml (10 units) bolus, followed by 50ml/hr (3 units/hr). &nb sp;May stop if bleeding returns to normal. pantoprazole 20 mg delayed release oral tablet (4 sources) Proton Pump Inhibitor Start: 10-19-2022 take 20 mg by mouth every twelve hours Pantoprazole Active 20 MG PO Q12H 60 October 19, 2022 12:00am polyethylene glycol 3350 14144 mg powder for oral solution (1 source) Osmotic Laxative Start: 09-02-2020 polyethylene glycol (GLYCOLAX) packet 17 g predniSONE 10 mg oral tablet (1 source) Start: 11-26-2023 End: 12-05-2023 predniSONE (DELTASONE) 10 mg tablet Take 4 tabs daily for 3 days, then 2 tabs daily for 3 days, then 1 tab daily for 3 days with food. 21 tablet 11/26/2023 12/05/2023 Active psyllium 3400 mg powder for oral suspension (2 sources) Start: 08-07-2022 Psyllium Husk (Metamucil) 3.4 gram/5.4 gram powder Active 1 tbsp PO DAILY 660 August 07, 2022 12:00am mix into at least 8 oz of water or juice before administering risperiDONE 1 mg oral tablet (2 sources) Atypical Antipsychotic Start: 07-22-2018 take 1 tablet by mouth once at bedtime risperiDONE 1 mg oral tablet ; 1 tab(s) orally once (at bedtime) Quantity: 30 Refills: 0 Ordered: 22-Jul-2018 Janny Moncada Start: 22-Jul-2018 Generic Substitution Allowed sucralfate 1000 mg oral tablet (4 sources) Aluminum Complex Start: 10-19-2022 take 1 g by mouth twice daily Sucralfate Active 1 GM PO .bid 60 October 19, 2022 12:00am traZODone hydrochloride 50 mg oral tablet (5 sources) Serotonin Reuptake Inhibitor Start: 07-22-2018 take 1 tablet by mouth once at bedtime as needed traZODone 50 mg oral tablet ; 1 tab(s) orally once (at bedtime), As needed, insomnia Quantity: 10 Refills: 0 Ordered: 22-Jul-2018 Janny Moncada Start: 22-Jul-2018 Generic Substitution Allowed witch jace 500 mg/ml medicated pad (1 source) Start: 11-27-2019 Topical, PRN, Hemorrhoids, Pain, Irritation, Starting 11/27/19 at 1156 Apply as needed. Completed/Discontinued Medications Medication Drug Class(es) Dates Sig (Normalized) Sig (Original) [id number] 200 actuat albuterol 0.09 mg/actuat metered dose inhaler (20 sources) beta2-Adrenergic Agonist Start: 12-24-2022 End: 04-13-2024 take 2 puff(s) by inhalation every four hours as needed for wheezing albuterol HFA (PROVENTIL HFA, VENTOLIN HFA) 90 mcg/actuation inhaler Indications: Asthma with acute exacerbation, unspecified asthma severity, unspecified whether persistent Inhale 2 Puffs as instructed every 4 hours as needed for wheezing/shortness of breath. 18 g 12/24/2022 04/13/2024 Discontinued Comment on above: Inhale 2 Puffs as in structed every 4 hours as needed for wheezing/shortness of breath. albuterol sulfate HFA 108 (90 Base) MCG/ACT inhaler (2 sources) Start: 06-08-2019 End: 11-27-2019 take 2 puff(s) by inhalation every four hours as needed for wheezing albuterol sulfate HFA 108 (90 Base) MCG/ACT inhaler Indications: Mild persistent asthma without complication Inhale 2 puffs into the lungs every 4 hours as needed for Wheezing or Shortness of Breath 1 Inhaler 3 06/08/2019 11/27/2019 Discontinued Start: 06-08-2019 take 2 puff(s) by in halation every four hours as needed for wheezing albuterol sulfate HFA 108 (90 Base) MCG/ACT inhaler Indications: Mild persistent asthma without complication Inhale 2 puffs into the lungs every 4 hours as needed for Wheezing or Shortness of Breath 1 Inhaler 3 06/08/2019 Active azithromycin 500 mg oral tablet (2 sources) Macrolide Antimicrobial Start: 10-12-2022 End: 10-26-2022 take 500 mg by mouth once daily Azithromycin Discontinued 500 MG PO DAILY 14 October 12, 2022 12:00am October 26, 2022 12:04am BRIXADI 96 mg/0.27 mL syringe (7 sources) Start: 07-24-2023 End: 11-26-2023 inject 96 mg by subcutaneous injection every month BRIXADI 96 mg/0.27 mL syringe Inject 96 mg subcutaneously once every month. 07/24/2023 11/26/2023 Discontinued Start: 07-24-2023 inject 96 mg by subc utaneous injection every month BRIXADI 96 mg/0.27 mL syringe Inject 96 mg subcutaneously once every month. 0 07/24/2023 Active celecoxib 200 mg oral capsule (9 sources) Nonsteroidal Anti-inflammatory Drug Start: 06-16-2024 End: 08-05-2024 take 1 capsule by mouth once daily celecoxib (CELEBREX) 200 mg capsule Take 1 capsule by mouth once daily. 30 capsule 1 06/16/2024 08/05/2024 Discontinued (Course of therapy completed) cholecalciferol 0.05 mg oral capsule (18 sources) Vitamin D Start: 05-14-2024 End: 05-14-2025 take 1 capsule by mouth once daily Cholecalciferol , Vitamin D3, (VITAMIN D-3) 50 mcg (2,000 unit) cap Indications: Vitamin D deficiency Take 1 capsule by mouth once daily. 90 capsule 3 05/14/2024 08/05/2024 Discontinued (Course of therapy completed) docusate sodium 100 mg oral capsule (4 sources) Start: 11-27-2019 End: 09-02-2020 take 1 capsule by mouth twice daily as needed for constipation docusate sodium (COLACE, DULCOLAX) 100 MG CAPS Take 100 mg by mouth 2 times daily as needed for Constipation 60 capsule 1 11/28/2019 09/02/2020 Discontinued (LIST CLEANUP) Start: 07-01-2019 End: 07-31-2019 take 1 capsule by mouth twice daily docusate sodium (COLACE) 100 MG capsule Take 1 capsule by mouth 2 times daily 60 capsule 0 07/01/2019 07/31/2019 Active ferrous sulfate 325 mg oral tablet (20 sources) Start: 05-14-2024 End: 05-14-2025 take 1 tablet by mouth once daily ferrous sulfate 325 mg (65 mg iron) tablet Indications: Iron deficiency anemia secondary to inadequate dietary iron intake Take 1 tablet by mouth once daily. 90 tablet 3 05/14/2024 08/05/2024 Discontinued (Course of therapy completed) Start: 11-27-2019 End: 09-02-2020 take 1 tablet by mouth twice daily at mealtime ferrous sulfate (IRON 325) 325 (65 Fe) MG tablet Take 1 tablet by mouth 2 times daily (with meals) 30 tablet 3 11/28/2019 09/02/2020 Discontinued (LIST CLEANUP) End: 04-13-2024 ferrous sulfate (IRON ORAL) Take by mouth. 04/13/2024 Discontinued ferrous sulfate (IRON ORAL) Take by mouth. Active ferrous sulfate (IRON ORAL) Take by mouth. 0 Active Comment on above: Take by mouth. FLUoxetine 25 mg / OLANZapine 6 mg oral capsule (20 sources) Atypical Antipsychotic, Serotonin Reuptake Inhibitor Start: 3 End: 4 take 1 capsule by mouth once daily OLANZapine-FLUoxetine (SYMBYAX) 6-25 mg per capsule Take 1 capsule by mouth once daily. 03/04/2023 11/26/2023 Discontinued take 1 capsule by mouth once dylon ly OLANZapine-FLUoxetine (SYMBYAX) 12-25 mg per capsule Take 1 capsule by mouth once daily. Patient unsure of dosing - verify next appointment 0 Active Comment on above: Take 1 capsule by mo uth once daily. Patient unsure of dosing - verify next appointment Take 1 capsule by mo uth once daily. iopamidol (ISOVUE-300) 61 % injection 100 mL (1 source) Start: 09-03-19 End: 09-03-19 iopamidol (ISOVUE-300) 61 % injection 100 mL lidocaine 1%-EPINEPHrine 1:100,000 50 mL, sodium bicarbonate 20 mEq in NaCl 0.9% 1,000 mL solution (TUMESCENT) (2 sources) Start: 11-27-19 End: 11-27-19 lidocaine 1%-EPINEPHrine 1:100,000 50 mL, sodium bicarbonate 20 mEq in NaCl 0.9% 1,000 mL solution (TUMESCENT) 1 ml morphine sulfate 2 mg/ml cartridge (2 sources) Opioid Agonist Start: 09-03-19 End: 09-03-19 morphine (PF) injection 2 mg mupirocin 0.02 mg/mg nasal ointment (2 sources) RNA Synthetase Inhibitor Antibacterial Start: 06-08-19 End: 11-28-19 mupirocin (BACTROBAN NASAL) 2 % nasal ointment Indications: MRSA (methicillin resistant Staphylococcus aureus) carrier Take by Nasal route 2 times daily for 5 days 1 Tube 3 06/08/2019 11/28/2019 Discontinued (Stop Taking at Discharge) naproxen 500 mg oral tablet (11 sources) Nonsteroidal Anti-inflammatory Drug Start: 05-01-19 End: 06-17-19 take 1 tablet by mouth every twelve hours as needed naproxen (NAPROSYN) 500 mg tablet Take 1 tablet by mouth two times a day as needed for pain. for pain. Take with food. 30 tablet 1 05/01/2024 06/16/2024 Discontinued (Course of therapy completed) Start: 09-24-2022 take 1 tablet by amanda th twice daily Naproxen (Naprosyn) 500 mg tablet Active 500 MG PO TWICE A DAY September 24, 2022 12:00am ondansetron 4 mg disintegrating oral tablet (20 sources) Serotonin-3 Receptor Antagonist Start: 08-08-2022 End: 04-13-2024 take 1 tablet by mouth every eight hours as needed ondansetron orally disintegrating (ZOFRAN ODT) 4 mg disintegrating tablet Take 1 tablet by mouth every 8 hours as needed. 20 tablet 1 06/11/2023 04/13/2024 Discontinued Start: 09-02-2020 End: 09-02-2020 ondansetron (ZOFRAN) injecti on 4 mg Start: 11-27-2019 take 8 mg by mouth e very eight hours as needed for nausea 8 mg, Oral, EVERY 8 HOURS PRN, Nausea, Starting Sat11/27/19 at 1156, Comment on above: Take 1 tablet by amanda th every 8 hours as needed. prazosin 2 mg oral capsule (20 sources) alpha-Adrenergic Marsha Start: 08-05-2024 End: 09-04-2024 take 1 capsule by mouth once daily at bedtime prazosin (MINIPRESS) 2 mg cap Indications: Insomnia, unspecified type Take 1 capsule by mouth daily at bedtime. 30 capsule 08/05/2024 08/26/2024 Discontinued Start: 07-16-2022 take 1 mg by mouth at bedtime Prazosin Active 1 MG PO AT BEDTIME July 16, 2022 12:00am Start: 09-02-2020 take 2 mg by mouth once daily 2 mg, Oral, NIGHTLY, First dose on Sat09/02/20 at 2345 Start: 07-22-2018 take 1 capsule by mo [facility] once at bedtime prazosin 1 mg oral capsule ; 1 cap(s) orally once (at bedtime) Quantity: 30 Refills: 0 Ordered: 22-Jul-2018 Janny Moncada Start: 22-Jul-2018 Generic Substitution Allowed End: 08-05-2024 take 1 mg by mouth once daily prazosin HCl (PRAZOSIN O RAL) Take 1 mg by mouth once daily. 08/05/2024 Discontinued take 1 capsule by mo [facility] once daily prazosin (MINIPRESS) 2 MG capsule Take 2 mg by mouth nightly 0 Active Comment on above: Take 1 mg by mouth o nce daily. 25/iron fum/folic/dha (-1 ORAL) (20 sources) End: 04-13-2024 25/iron fum/folic/dha (-1 ORAL) Take by mouth. 04/13/2024 Discontinued 25/iron fum/folic/dha (-1 ORAL) Take by mouth. Active 25/iron fum/folic/dha (-1 ORAL) Take by mouth. 0 Active Comment on above: Take by mouth. QUEtiapine 25 mg oral tablet (20 sources) Atypical Antipsychotic Start: End: take 1 tablet by mouth twice daily QUEtiapine (SEROQUEL) 25 mg tablet Take 25 mg by mouth two times a day. 04/29/2024 08/05/2024 Discontinued Start: 04-29-2024 [facility] QUEtiapine (SEROQUEL) 25 mg tablet Take 25 mg by mouth three times a day. 04/29/2024 Active 50 ml sodium chloride 9 mg/m l injection (9 sources) Start: 09-11-2020 End: 09-11-2020 0.9 % sodium chloride bolus Start: 09-02-2020 0.9 % sodium c hloride infusion Start: 09-02-2020 sodium chlorid e flush 0.9 % injection 5-40 mL Start: 09-02-2020 End: 09-02-2020 0.9 % sodium chloride bolus Start: 11-27-2019 10 mL, Intrave nous, EVERY 12 HOURS SCHEDULED (2 times per day), First dose on Sat11/27/19 at 2100, Start: 11-27-2019 take 10 mL intravenous route o nce 10 mL, Intravenous, PRN, Line Care, Starting Sat11/27/19 at 1156 After every IV line use sulfamethoxazole 800 mg / trimethoprim 160 mg oral tablet (1 source) Dihydrofolate Reductase Inhibitor Antibacterial, Sulfonamide Antimicrobial Start: 10-07-2018 End: 10-16-2018 take 1 tablet by mouth twice daily Bactrim DS 800 mg-160 mg oral tablet ; 1 tab(s) orally 2 times a day Quantity: 20 Refills: 0 Ordered: 07-Oct-2018 Tyler GrafMarcus Start: 07-Oct-2018 End: 16-Oct-2018 Generic Substitution Allowed tiZANidine 4 mg oral tablet (16 sources) Central alpha-2 Adrenergic Agonist Start: 09-08-2024 End: 11-19-2024 take 1 tablet by mouth once daily tiZANidine (ZANAFLEX) 4 mg tablet Take 1 tablet by mouth once daily. 30 tablet 1 09/08/2024 11/19/2024 Discontinued (Course of therapy completed) trazadone (4 sources) Start: 07-16-2022 End: 07-19-2022 take 50 mg by mouth at bedtime trazadone Discontinued 50 MG PO BEDTIME July 16, 2022 12:00am July 19, 2022 2:59pm Problems Active Problems Problem Classification Problem Date Documented Da te Episodic/Chronic Abdominal pain (3 sources) Pelvic and perineal pain; Translations: [Pelvic and perineal pain] Onset: 08-16-2017 Administrative/social admission (2 sources) Left against medical advice; Translations: [Left against medical advice] Onset: 11-28-2019 11-28-2019 Alcohol-related disorders (4 sources) Alcohol abuse; Translations: [Alcohol abuse, uncomplicated] 07-16-2022 Chronic Allergic reactions (9 sources) Allergy status to penicillin; Translations: [Allergic condition] Onset: 04-30-2018 07-16-2022 Episodic Anxiety disorders (16 sources) Anxiety; Translations: [Anxiety disorder, unspecified] Onset: 10-18-2023 12-13-2017 Chronic Asthma (15 sources) Unspecified asthma, uncomplicated; Translations: [Exacerbation of asthma] Onset: 11-06-2016 12-21-2016 Chronic Bacterial infection; unspecified site (4 sources) History of methicillin resistant Staphylococcus aureus infection; Translations: [Personal history of Methicillin resistant Staphylococcus aureus infection] 07-18-2022 Episodic Chronic obstructive pulmonary disease and bronchiectasis (4 sources) Chronic asthmatic bronchitis; Translations: [Chronic bronchitis co-occurrent with wheeze] Onset: 06-08-2019 06-08-2019 Chronic Contraceptive and procreative management (1 source) Patient encounter status; Translations: [Encounter for other general counseling and advice on contraception] 04-30-2023 Episodic Deficiency and other anemia (4 sources) Anemia; Translations: [Anemia, unspecified] 07-16-2022 Episodic Deficiency and other anemia (1 source) Anemia, unspecified; Translations: [Anemia, unspecified] 07-18-2023 Episodic Deficiency and other anemia (2 sources) Iron deficiency anemia secondary to inadequate dietary iron intake; Translations: [Other iron deficiency anemias] 04-14-2024 Episodic Diseases of white blood cells (1 source) Elevated white blood cell count, unspecified Onset: 01-01-2018 Chronic Disorders of lipid metabolism (2 sources) Mixed hyperlipidemia; Translations: [Mixed hyperlipidemia] Onset: 05-14-2024 05-14-2024 Chronic Genitourinary symptoms and ill-defined conditions (4 sources) History of urinary tract infection; Translations: [Personal history of urinary (tract) infections] 07-18-2022 Episodic Headache; including migraine (1 source) Headache; Translations: [Headaches] 08-05-2024 Episodic Hepatitis (6 sources) Type B viral hepatitis; Translations: [Unspecified viral hepatitis B without hepatic coma] 07-16-2022 Episodic Inflammatory diseases of female pelvic organs (1 source) Bacterial vaginosis; Translations: [Acute vaginitis] Episodic Mood disorders (20 sources) Bipolar disorder, unspecified; Translations: [Depressed bipolar I disorder] Onset: 12-11-2017 12-12-2017 Chronic Mood disorders (1 source) Major depressive disorder, single episode, unspecified Onset: 01-01-2018 Nausea and vomiting (5 sources) Nausea and vomiting; Translations: [Nausea with vomiting, unspecified] Onset: 12-11-2016 12-11-2016 Episodic Neoplasms of unspecified nature or uncertain behavior (4 sources) Neoplastic disease; Translations: [Neoplasm of unspecified behavior of unspecified site] 07-16-2022 Episodic Noninfectious gastroenteritis (12 sources) Microscopic colitis; Translations: [Microscopic colitis, unspecified] Onset: 03-01-2017 03-01-2017 Chronic Nutritional deficiencies (4 sources) Vitamin D deficiency; Translations: [Vitamin D deficiency, unspecified] Onset: 04-14-2024 04-14-2024 Chronic Other aftercare (4 sources) Other usp (current) drug therapy; Translations: [Other usp (current) drug therapy] Onset: 06-04-2022 Episodic Other aftercare (1 source) On lithium; Translations: [Encounter for therapeutic drug level monitoring] 09-02-2023 Episodic Other aftercare (1 source) Encounter for therapeutic drug level monitoring; Translations: [Encounter for lithium monitoring] Onset: 12-10-2024 Episodic Other and unspecified benign neoplasm (4 sources) Polyp of descending colon; Translations: [Polyp of colon] 02-20-2017 Episodic Other complications of ; puerperium affecting management of mother (1 source) Deliveries by ; Translations: [Encounter for delivery without indication] 07-17-2023 Episodic Other complications of ; puerperium affecting management of mother (1 source) Encounter for delivery without indication; Translations: [ delivery, without mention of indication, delivered, with or without mention of antepartum condition] 07-18-2023 Episodic Other complications of (1 source) Obesity complicating , third trimester; Translations: [Obesity complicating , childbirth, or the puerperium, antepartum condition or complication] 05-28-2023 Chronic Other complications of (1 source) Heartburn; Translations: [Other specified related conditions, third trimester] 01-07-2023 Episodic Other connective tissue disease (1 source) Swelling of hand; Translations: [Other specified soft tissue disorders] 05-14-2024 Episodic Other connective tissue disease (1 source) Myalgia, other site; Translations: [Myofascial pain syndrome] Onset: 01-20-2025 Episodic Other diseases of veins and lymphatics (1 source) Difficult venous access; Translations: [Other specified disorders of veins] 07-16-2023 Episodic Other diseases of veins and lymphatics (1 source) Peripheral venous insufficiency; Translations: [Venous insufficiency (chronic) (peripheral)] 09-22-2024 Episodic Other diseases of veins and lymphatics (1 source) Venous insufficiency (chronic) (peripheral); Translations: [Venous (peripheral) insufficiency] Onset: 12-10-2024 Episodic Other infections; including parasitic (3 sources) Disorder due to infection; Translations: [Unspecified infectious disease] 07-19-2022 Episodic Other infections; including parasitic (1 source) Recurrent infectious disease; Translations: [Unspecified infectious disease] 07-19-2022 Episodic Other injuries and conditions due to external causes (4 sources) H/O: fracture; Translations: [Personal history of (healed) traumatic fracture] 07-18-2022 Episodic Other lower respiratory disease (3 sources) Cough; Translations: [Acute cough] 12-24-2022 Episodic Other nervous system disorders (1 source) Other chronic pain; Translations: [Other chronic pain] Onset: 10-07-2017 Chronic Other nervous system disorders (1 source) Chronic pain syndrome; Translations: [Chronic pain syndrome] Onset: 01-20-2025 Chronic Other non-traumatic joint disorders (5 sources) Hip pain; Translations: [Pain in left hip] 05-14-2023 Episodic Other nutritional; endocrine; and metabolic disorders (20 sources) Obese class I; Translations: [Obesity, unspecified] Onset: 04-14-2024 05-28-2023 Chronic Other nutritional; endocrine; and metabolic disorders (20 sources) Obese class II; Translations: [Obesity, Class II, BMI 35-39.9] Onset: 05-14-2024 05-14-2024 Chronic Other nutritional; endocrine; and metabolic disorders (1 source) Severe obesity; Translations: [Class 3 severe obesity with body mass index (BMI) of 40.0 to 44.9 in adult ([facility])] 09-30-2024 Chronic Other nutritional; endocrine; and metabolic disorders (1 source) Body mass index (BMI) 40.0-44.9, adult; Translations: [Class 3 severe obesity with body mass index (BMI) of 40.0 to 44.9 in adult ([facility])] Onset: 09-30-2024 Chronic Other nutritional; endocrine; and metabolic disorders (1 source) Body mass index 40+ - severely obese; Translations: [Morbid (severe) obesity due to excess calories] 10-27-2024 Chronic Other skin disorders (1 source) Localized swelling of left lower leg; Translations: [Localized swelling, mass and lump, left lower limb] 08-27-2023 Episodic Other skin disorders (6 sources) Mass of lower limb; Translations: [Localized swelling, mass and lump, right lower limb] 08-19-2024 Episodic Other upper respiratory infections (1 source) Chronic sinusitis; Translations: [Chronic sinusitis, unspecified] 11-26-2023 Chronic Other upper respiratory infections (1 source) Acute upper respiratory infection; Translations: [Acute upper respiratory infection, unspecified] 12-24-2022 Episodic Peripheral and visceral atherosclerosis (1 source) Ischemic colitis; Translations: [Vascular disorder of intestine, unspecified] Chronic Residual codes; unclassified (4 sources) Psychomotor agitation; Translations: [Restlessness and agitation] 07-27-2022 Chronic Residual codes; unclassified (1 source) Tobacco use Onset: 04-30-2018 Episodic Residual codes; unclassified (1 source) FH: Thalassemia; Translations: [Family history of diseases of the blood and blood-forming organs and certain disorders involving the immune mechanism] 01-07-2023 Episodic Residual codes; unclassified (1 source) Gestation period, 12 weeks; Translations: [12 weeks gestation of ] 01-07-2023 Episodic Residual codes; unclassified (1 source) Gestation period, 18 weeks; Translations: [18 weeks gestation of ] 02-21-2023 Episodic Residual codes; unclassified (1 source) Gestation period, 28 weeks; Translations: [28 weeks gestation of ] 04-30-2023 Episodic Residual codes; unclassified (1 source) Gestation period, 30 weeks; Translations: [30 weeks gestation of ] 05-14-2023 Episodic Residual codes; unclassified (2 sources) Gestation period, 32 weeks; Translations: [32 weeks gestation of ] 05-28-2023 Episodic Residual codes; unclassified (1 source) Gestation period, 34 weeks; Translations: [34 weeks gestation of ] 06-11-2023 Episodic Residual codes; unclassified (2 sources) Gestation period, 36 weeks; Translations: [36 weeks gestation of ] 06-26-2023 Episodic Residual codes; unclassified (1 source) Gestation period, 37 weeks; Translations: [37 weeks gestation of ] 07-02-2023 Episodic Residual codes; unclassified (1 source) Gestation period, 38 weeks; Translations: [38 weeks gestation of ] 07-09-2023 Episodic Residual codes; unclassified (1 source) Gestation period, 39 weeks; Translations: [39 weeks gestation of ] 07-16-2023 Episodic Residual codes; unclassified (1 source) Intolerant of heat; Translations: [Other general symptoms and signs] 08-05-2024 Episodic Residual codes; unclassified (1 source) Insomnia; Translations: [Insomnia, unspecified] 08-05-2024 Episodic Residual codes; unclassified (1 source) Insomnia, unspecified; Translations: [Insomnia, unspecified type] Onset: 08-05-2024 Episodic Spondylosis; intervertebral disc disorders; other back problems (20 sources) Low back pain; Translations: [Backache] Onset: 01-17-2018 04-14-2024 Episodic Sprains and strains (1 source) Strain of muscle and tendon of unspecified wall of thorax, initial encounter; Translations: [Strain of muscle and tendon of unspecified wall of thorax, initial encounter] Onset: 10-07-2017 Episodic Substance-related disorders (20 sources) Nicotine dependence, cigarettes, uncomplicated; Translations: [Opioid dependence, uncomplicated] Onset: 11-06-2016 Resolved: 12-10-2022 11-27-2019 Chronic Substance-related disorders (2 sources) Cannabis dependence with current use; Translations: [Cannabis dependence with current use] Onset: 06-08-2019 06-08-2019 Thyroid disorders (9 sources) Hypothyroidism; Translations: [Hypothyroidism, unspecified] Onset: 08-26-2024 09-01-2024 Chronic Unclassified (1 source) Dislocation of jaw, unspecified side, initial encounter; Translations: [Dislocation of jaw, unspecified side, initial encounter] Onset: 10-07-2017 Unclassified (3 sources) Periorbital cellulitis; Translations: [Periorbital cellulitis] Onset: 12-31-2017 Unclassified (1 source) Vomiting, unspecified Onset: 08-16-2017 Unclassified (3 sources) Cellulitis of left lower limb; Translations: [Cellulitis of left lower limb] Onset: 04-30-2018 Unclassified (1 source) Other intermediate project manager (current) drug therapy Onset: 04-30-2018 Unclassified (1 source) Cannabis use, unspecified, uncomplicated Onset: 01-01-2018 Unclassified (1 source) Stricture and stenosis of cervix uteri Onset: 08-16-2017 Unclassified (1 source) Sprain of ligaments of lumbar spine, initial encounter Onset: 01-17-2018 Unclassified (1 source) Exposure to other specified factors, initial encounter Onset: 01-17-2018 Unclassified (1 source) Proc/trtmt not crd out d/t pt lv bef seen by the [facility] care prov Onset: 01-17-2018 Unclassified (2 sources) Sebaceous cyst of skin; Translations: [Sebaceous cyst of left axilla] Onset: 01-12-2019 01-12-2019 Unclassified (2 sources) RE CHECK HORMONE LEVELS 6WKS 09-19-2021 Comment on above: RE CHECK HORMONE LEV ELS 6WKS Unclassified (10 sources) [facility] CC Education - COMMON Onset: 12-10-2022 12-10-2022 Unclassified (10 sources) Education - [place] Onset: 12-10-2022 12-10-2022 Unclassified (3 sources) Low back pain co-occurrent with neuralgia of left sciatic nerve 05-01-2024 Unclassified (1 source) Class 3 severe obesity with body mass index (BMI) of 40.0 to 44.9 in adult ([facility]); Translations: [Class 3 severe obesity with body mass index (BMI) of 40.0 to 44.9 in adult ([facility])] Onset: 09-30-2024 Unclassified (2 sources) Headaches; Translations: [Headaches] Onset: 08-05-2024 Unclassified (1 source) Procedure Onset: 12-03-2024 Unclassified (1 source) Obesity, Class II, BMI 35-39.9; Translations: [Obesity, Class II, BMI 35-39.9] Onset: 05-14-2024 Varicose veins of lower extremity (7 sources) Varicose veins of lower extremity; Translations: [Varicose veins of bilateral lower extremities with other complications] Onset: 11-26-2024 10-06-2024 Episodic Past or Other Problems Problem Classification Problem Date Documented Da te Episodic/Chronic Abdominal pain (14 sources) Unspecified abdominal pain; Translations: [Left lower quadrant pain] Onset: 10-07-2017 07-19-2022 Episodic Administrative/social admission (6 sources) Persons encountering health services in other specified circumstances; Translations: [Other reasons for seeking consultation] Onset: 05-15-2024 07-19-2022 Episodic Deficiency and other anemia (2 sources) Other iron deficiency anemias; Translations: [Iron deficiency anemia secondary to inadequate dietary iron intake] Onset: 04-14-2024 Episodic Diabetes mellitus without complication (3 sources) Hyperglycemia; Translations: [Hyperglycemia, unspecified] Onset: 04-14-2024 04-14-2024 Episodic Diseases of mouth; excluding dental (3 sources) Xerostomia; Translations: [Dry mouth, unspecified] Onset: 08-05-2024 08-05-2024 Episodic E Codes: Adverse effects of medical drugs (1 source) Adverse effect of other antipsychotics and neuroleptics, initial encounter; Translations: [Davey adverse reaction] Onset: 04-22-2024 Episodic Hemorrhage during ; abruptio placenta; placenta previa (20 sources) Vaginal bleeding complicating early ; Translations: [Hemorrhage in early , unspecified] Onset: 09-14-2021 Resolved: 12-10-2022 12-10-2022 Episodic Immunizations and screening for infectious disease (4 sources) Encounter for immunization; Translations: [Vaccination needed] Onset: 11-06-2016 04-30-2023 Episodic Menstrual disorders (20 sources) Menometrorrhagia; Translations: [Excessive and frequent menstruation with irregular cycle] Resolved: 12-10-2022 12-10-2022 Chronic Noninfectious gastroenteritis (9 sources) Microscopic colitis; Translations: [Colitis] Onset: 03-01-2017 03-01-2017 Episodic Nonspecific chest pain (1 source) Chest pain, unspecified; Translations: [Chest pain, unspecified] Onset: 09-05-2023 Episodic Other complications of (20 sources) Anemia in mother complicating , childbirth AND/OR puerperium; Translations: [Anemia complicating , third trimester] Onset: 05-03-2023 Resolved: 09-02-2023 05-03-2023 Chronic Other complications of (20 sources) High risk ; Translations: [Supervision of high risk , unspecified, third trimester] Onset: 07-09-2023 Resolved: 09-02-2023 11-27-2019 Episodic Other complications of (20 sources) Complication occurring during ; Translations: [ complication before ] Onset: 04-02-2023 Resolved: 09-02-2023 04-02-2023 Episodic Other connective tissue disease (2 sources) Other specified soft tissue disorders; Translations: [Hand swelling] Onset: 05-14-2024 Episodic Other diseases of veins and lymphatics (2 sources) Other specified disorders of veins; Translations: [Other specified disorders of circulatory system] Onset: 10-18-2023 07-18-2023 Episodic Other gastrointestinal disorders (4 sources) Diarrhea; Translations: [Diarrhea, unspecified] Onset: 12-11-2016 12-11-2016 Episodic Other injuries and conditions due to external causes (4 sources) Elevated urine levels of drugs, medicaments and biological substances; Translations: [Finding of urine substance level] Onset: 11-28-2019 11-28-2019 Episodic Other non-traumatic joint disorders (1 source) Pain in right hip; Translations: [Bilateral hip pain] Onset: 07-14-2024 Episodic Other non-traumatic joint disorders (1 source) Pain in left hip; Translations: [Bilateral hip pain] Onset: 07-14-2024 Episodic Other nutritional; endocrine; and metabolic disorders (1 source) Anorexia Onset: 08-16-2017 Episodic Other and delivery including normal (8 sources) Vaginal delivery; Translations: [Encounter for full-term uncomplicated delivery] Onset: 11-28-2019 11-28-2019 Episodic Other screening for suspected conditions (not mental disorders or infectious disease) (18 sources) Increased lactic acid level; Translations: [Other specified abnormal findings of blood chemistry] Onset: 09-02-2020 Episodic Other skin disorders (2 sources) Sebaceous cyst of skin; Translations: [Sebaceous cyst] Onset: 01-12-2019 01-12-2019 Episodic Other skin disorders (4 sources) Localized swelling, mass and lump, right lower limb; Translations: [Leg mass, right] Onset: 08-05-2024 Episodic Polyhydramnios and other problems of amniotic cavity (20 sources) Polyhydramnios; Translations: [Polyhydramnios, third trimester, not applicable or unspecified] Onset: 06-26-2023 Resolved: 09-02-2023 06-26-2023 Episodic Residual codes; unclassified (1 source) Other specified postprocedural states Onset: 08-16-2017 Episodic Residual codes; unclassified (1 source) Personal history of other complications of , childbirth and the puerperium Onset: 08-16-2017 Episodic Residual codes; unclassified (1 source) Chill Onset: 08-16-2017 Episodic Residual codes; unclassified (4 sources) FH: Ulcerative colitis; Translations: [Family history of other diseases of the digestive system] Onset: 12-11-2016 12-11-2016 Episodic Residual codes; unclassified (4 sources) Past history of procedure; Translations: [Other specified postprocedural states] Onset: 11-28-2019 11-28-2019 Episodic Residual codes; unclassified (2 sources) Left against medical advice; Translations: [Procedure and treatment not carried out because of patient's decision for other reasons] Onset: 11-28-2019 11-28-2019 Episodic Residual codes; unclassified (20 sources) Patient noncompliance - general; Translations: [Patient noncompliance] Resolved: 12-10-2022 12-10-2022 Episodic Residual codes; unclassified (2 sources) 39 weeks gestation of ; Translations: [ state, incidental] Onset: 10-18-2023 07-18-2023 Episodic Residual codes; unclassified (2 sources) Other general symptoms and signs; Translations: [Heat intolerance] Onset: 08-05-2024 Episodic Screening and history of mental health and substance abuse codes (20 sources) History of post-traumatic stress disorder; Translations: [Personal history of other mental and behavioral disorders] Onset: 04-01-2023 04-01-2023 Episodic Skin and subcutaneous tissue infections (6 sources) Cutaneous abscess of right lower limb; Translations: [Cutaneous abscess of left upper limb] Onset: 11-06-2016 07-10-2019 Episodic Substance-related disorders (20 sources) Maternal drug use; Translations: [Drug use complicating , unspecified trimester] Onset: 11-28-2019 Resolved: 09-02-2023 11-27-2019 Episodic Results Test Name Value Interpretation Reference Range Facility [facility] 01-20-2025 CNOV Office Visit (PAMMJK ) -------- CRYSTAL MACHUCA ([id number]) 1990 F Date Time Provider Department 01/20/25 2:15 PM ALCIDES MURCIA During your visit today, we recorded the following information about you: Pulse Respiration Blood pressure 74/minute 16/minute 122/85 Alcides Murcia MD 01/20/2025 3:47 PM Signed PATIENT: Crystal Machuca : 1990 DATE OF SERVICE: 01/20/2025 REFERRING PRACTITIONER: Mikhail Mckeon MD PRIMARY CARE PROVIDER: Amilcar Rivera PA-C CHIEF COMPLAINT: Patient presents with: New Patient Evaluation HISTORY OF PRESENT ILLNESS: Crystal Machuca is a 34 year old year old female who presents to the clinic today with chief complaint(s) as above. Onset/Duration: Low back pain has worsened for 1 year Injury: Patient denies injury that started this Location/radiation/refer ral: Pain is in the low back and radiates to the left leg Description: Burning, tightness Pain Level: Now: 6 /10 Best: 3 /10 Worst: 9 /10 Numbness/Tingling (location): Occasionally in the lower legs and feet Weakness (location): Bilateral legs Better with: Stretches Worse with: Activity, mopping Fever/Chills: [] Yes [x] No Recent significant weight change: [] Yes [x] No Bladder/Bowel incontinence: [] Yes [x] No-constipation Is this visit directly related to a work or auto injury? [] Yes [x] No If so, pre-Injury Symptoms: n/a Prior Related Consults: [x] Yes [] No 1. Dr. Mckeon 2. 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 HEENT: negative. EYES: negative RESPIRATORY: negative. CARDIOVASCULAR: negative. GASTROINTESTINAL: negative. GENITOURINARY: negative. INTEGUMENT/BREAST: negative. HEMATOLOGIC/LYMPHATIC: negative. NEURO/MUSCULOSKELETAL: Negative except above BEHAVIORAL/PSYCH: negative. ENDOCRINE: negative. ALLERGIC/IMMUNOLOGIC: Negative. 14 point ROS; pertinent positives listed above, the rest are reviewed and confirmed to be negative. === HISTORY: ALLERGIES Allergen Reactions Augmentin [Amoxicil* Hives Monroe [Hydrocodone-* Vomiting Penicillin Hives Tramadol Vomiting PAST MEDICAL HISTORY Diagnosis Date Anorexia nervosa (HCC) Asthma (HCC) Bipolar disorder (HCC) Borderline personality disorder (HCC) Generalized anxiety disorder Headache High risk sexual behavior pt stopped B/C and she is on high risk antipsychotic medication HRP (high risk ) ([facility]) substance abuse/bipolardisorder/pe rsonality disorder Menometrorrhagia Nausea and vomiting Opioid dependence (HCC) on suboxone psych/addiction dr delarosa Patient noncompliance Polysubstance dependence ([facility]) heroin, thc, opiates , cocaine Polysubstance dependence ([facility]) Subjective visual disturbance Tobacco dependence syndrome Ulcerative colitis ([facility]) PAST SURGICAL HISTORY Procedure Laterality Date ADENOIDECTOMY HX 02/26/2013 DELIVERY ONLY Bilateral 07/16/2023 bilateral salpingectomy COLONOSCOPY SCREENING dx - ulcerative, lymphocitic - Dr. Cummings, Friend - dx at 13yrs old EGD W/O [facility] SPEC VARICIES INJ Ulcers in stomach ORAL SURGERY PROCEDURE wisdom teeth removed TONSILLECTOMY HX 02/26/2013 FAMILY HISTORY Problem Relation Age of Onset Diabetes Mother COPD Father No Known Problems Brother Lymphoma Maternal Grandmother Cancer Maternal Grandfather Colon, lung, brain, throat cancer other (heart disease [Other]) Maternal Grandfather Breast Cancer Paternal Grandmother Diabetes Paternal Grandfather Hypertension Paternal Grandfather Hyperlipidemia Paternal Grandfather SOCIAL HISTORY[1] Current Outpatient Medications Medication Sig famotidine (PEPCID) 40 mg tablet Take 1 tablet by mouth daily at bedtime. montelukast (SINGULAIR) 10 mg tablet Take 1 tablet by mouth daily at bedtime. metFORMIN ER (GLUCOPHAGE XR) 500 mg 24 hr tablet Take 1 tablet by mouth daily with dinner for 14 days, THEN 2 tablets daily with dinner. QUEtiapine (SEROQUEL) 25 mg tablet Take 25 mg by mouth two times a day. SUBLOCADE 100 mg/0.5 mL injection FLUoxetine (PROZAC) 20 mg capsule Take 1 capsule by mouth every afternoon. lithium carbonate 600 mg capsule Take 750 mg by mouth at bedtime as needed. cyclobenzaprine (FLEXERIL) 10 mg tablet Take 1 tablet by mouth three times a day as needed for muscle spasm or pain. gabapentin (NEURONTIN) 300 mg capsule Take 1 capsule by (more content not included)... Normal [facility] Basic metabolic 2000 panelon 12-10-2024 Anion gap [Moles/Vol] 11 mmol/L Normal 8-15 [facility] Comment on above: Order Comment: Speci men Type: BLOOD SPECIMENOrdering Facility: External Submitter Address: , , Performed By: #### 2 4321-2 ####[facility] [id number] [place] [address] [place] Calcium [Mass/Vol] 9.6 mg/dL Normal 8.5-10.2 [facility] Comment on above: Order Comment: Speci men Type: BLOOD SPECIMENOrdering Facility: External Submitter Address: , , Performed By: #### 2 432-2 ####[facility] [id number] [place] [address] [place] Chloride [Moles/Vol] 103 mmol/L Normal 98-107 [facility] Comment on above: Order Comment: Speci men Type: BLOOD SPECIMENOrdering Facility: External Submitter Address: , , Performed By: #### 2 4321-2 ####[facility] [id number] [place] [address] [place] CO2 [Moles/Vol] 21 mmol/L Low 22-30 [facility] Comment on above: Order Comment: Speci men Type: BLOOD SPECIMENOrdering Facility: External Submitter Address: , , Performed By: #### 2 4321-2 ####[facility] [id number] [place] [address] [place] Creatinine [Mass/Vol] 0.83 mg/dL Normal 0.58-0.96 [facility] Comment on above: Order Comment: Nusrat morgan Type: BLOOD SPECIMENOrdering Facility: External Submitter Address: , , Performed By: #### 2 4321-2 ####[facility] [id number] [place] [address] [place] eGFRcr SerPlBld CKD-EPI 2020 96 mL/min/1.73m??? Normal >=60 [facility] Comment on above: Order Comment: Nusrat morgan Type: BLOOD SPECIMENOrdering Facility: External Submitter Address: , , Result Comment: Afia mated Glomerular Filtration Rate (eGFR) is calculated using the 2020 CKD-EPI creatinine equation. This equation utilizes serum creatinine, sex, and age as parameters. The creatinine assay has traceable calibration to isotope dilution-mass spectrometry. Refer to KDIGO guidelines for clinical interpretation. In patients with unstable renal function, e.g. those with acute kidney injury, the eGFR may not accurately reflect actual GFR. Performed By: #### 2 4321-2 ####[facility] [id number] [place] [address] [place] Glucose [Mass/Vol] 110 mg/dL High 74-99 [facility] Comment on above: Order Comment: Nusrat morgan Type: BLOOD SPECIMENOrdering Facility: External Submitter Address: , , Result Comment: The [place] Diabetes Association (ADA) provides guidance for cutoff values for fasting glucose and random glucose. The ADA defines fasting as no caloric intake for at least 8 hours. Fasting plasma glucose results between 100 to 125 mg/dL indicate increased risk for diabetes (prediabetes). Fasting plasma glucose results greater than or equal to 126 mg/dL meet the criteria for diagnosis of diabetes. In the absence of unequivocal hyperglycemia, results should be confirmed by repeat testing. In a patient with classic symptoms of hyperglycemia or hyperglycemic crisis, random plasma glucose results greater than or equal to 200 mg/dL meet the criteria for diagnosis of diabetes. Reference: Standards of Medical Care in Diabetes 2016, [place] Diabetes Association. Diabetes Care. 2016.39(Suppl 1). Performed By: #### 2 4321-2 ####[facility] [id number] [place] [address] [place] Potassium [Moles/Vol] 4.0 mmol/L Normal 3.7-5.1 [facility] Comment on above: Order Comment: Nusrat morgan Type: BLOOD SPECIMENOrdering Facility: External Submitter Address: , , Performed By: #### 2 4321-2 ####[facility] [id number] [place] [address] [place] Sodium [Moles/Vol] 135 mmol/L Low 136-144 [facility] Comment on above: Order Comment: Nusrat morgan Type: BLOOD SPECIMENOrdering Facility: External Submitter Address: , , Performed By: #### 2 4321-2 ####[facility] [id number] [place] [address] [place] Urea nitrogen [Mass/Vol] 13 mg/dL Normal 7-21 [facility] Comment on above: Order Comment: Nusrat morgan Type: BLOOD SPECIMENOrdering Facility: External Submitter Address: , , Performed By: #### 2 4321-2 ####[facility] [id number] [place] [address] [place] Davey, Bld SerPl-sCncon Davey [Moles/Vol] 0.9 mmol/L Normal 0.6-1.2 [facility] Comment on above: Order Comment: Nusrat morgan Type: BLOOD SPECIMENOrdering Facility: External Submitter Address: , , Result Comment: Refe rence ranges and high/low indicator flags are provided as general guidelines only. The treating physician must determine appropriate target levels/dosing based on the specific clinical situation. Performed By: #### 3 024-7, 3051-0, 13819-3, 3016-3 ####[facility] LABIA [id number] [place] [id number] [place] T3Free SerPl-mCncon 12-11-19 25 Free T3 [Mass/Vol] 2.4 pg/mL Normal 2.3-4.1 [facility] Comment on above: Order Comment: Speci men Type: BLOOD SPECIMENOrdering Facility: External Submitter Address: , , Performed By: #### 3 024-7, 3051-0, 43611-4, 3016-3 ####[facility] [id number] [place] [id number] [place] T4 Free SerPl-mCncon 025 Free T4 [Mass/Vol] 0.8 ng/dL Low 0.9-1.7 [facility] Comment on above: Order Comment: Nusrat morgan Type: BLOOD SPECIMENOrdering Facility: [facility] Address: [address] [place] [address] Performed By: #### 3 024-7, 3051-0, 59031-9, 3016-3 ####[facility] [id number] [place] [address] [place] TSH SerPl-aCncon 12-10-2024 TSH Qn 18.900 m[IU]/L High 0.270-4.200 [facility] Comment on above: Order Comment: Nusrat morgan Type: BLOOD SPECIMENOrdering Facility: [facility] Address: [address] [place] [address] Result Comment: If t he patient is , TSH reference range varies by gestational period: First Trimester (weeks 9-12): 0.180-2.990 mIU/L Second Trimester: 0.110-3.980 mIU/L Third Trimester: 0.480-4.710 mIU/L Thomas Hinojosa et al. A Practical Approach for the Verifications and Determination of Site- and Trimester-Specific Reference Intervals for Thyroid Function tests in . Thyroid, 2019:29:3:412-420. Tin E, et al. 2017 Guidelines of the [place] Thyroid Association for the Diagnosis and Management of Thyroid Disease during and the . Thyroid, 2017:27:3:315-389. Performed By: #### 3 024-7, 3051-0, 68495-6, 3016-3 ####[facility] LABCLIA [id number] [place] [address] [place] US VENOUS INCOMPETENCY UNL V LABon 12-10-2024 US VENOUS INCOMPETENCY UNL VAS LAB Non-Invasive Vascular Laboratory [facility] Venous Valvular Incompetency Unilateral - Right Date of service/time: 12/10/2024 11:03:55 AM Name: CRYSTAL MACHUCA Date of : 1990 Age: 34 years Gender: F Clinical Indication 12/03/2024 right great saphenous vein endovenous laser ablation. TECHNIQUE -------- A venous duplex ultrasound examination was performed, including grayscale imaging with compression maneuvers and color Doppler and spectral Doppler examination with augmentation maneuvers and response to respiration of the below mentioned veins. IMPRESSION RIGHT SIDE - DEEP VEINS Successful ablation of the great saphenous vein to within 0.59 cm of the saphenofemoral junction. The inferior epigastric vein appears patent. The external iliac vein, common femoral vein, and femoral vein proximal are patent with respirophasic flow. There is no evidence of deep venous thrombosis. Technologist: Ninoska Goldstein RVT, [facility] Ordering physician: JANET RODAS Interpreting physician: Shanel Tariq MD, SUHA Final CC [facility] Image : [id number] ID See Link below for Image Normal [facility] CNOVon 12-03-2024 CNOV Office Visit (VASSMD ) -------- LOLIAshishCRYSTAL ([id number]) 1990 F Date Time Provider Department 12/03/24 9:30 AM JANET RODAS VASSMD During your visit today, we recorded the following information about you: Pulse Blood pressure 63/minute 112/70 Janet Rodas DO 12/04/2024 4:06 PM Signed [facility] Operative Report Endovenous Laser Ablation Crystal Ko Brigette December 03, 2024 1990 ALLERGIES: ALLERGIES Allergen Reactions Augmentin [Amoxicil* Hives Monroe [Hydrocodone-* Vomiting Penicillin Hives Tramadol Vomiting Physician: Janet Rodas DO Assistants: Stefanie Cardenas RVT Leg: right Greater saphenous vein Position:Supine Pre-op Assessment: Ambulatory, Calm, and Oriented Xanax Dosage (Oral) : 1mg Time: 0950 SIGN IN COMPLETE: Yes Patient in Room: 1015 Vein Marked: No Hair Clipped: No Prep: chloraprep Time out: 1028 Reviewed allergies AND medications Consent Signed Correct Patient/ Date Correct Procedure Correct Side: Right Correct Position Correct Equipment Start Time: 1029 1% Xylocaine Plain + 8.4% NaBicarb (5:1 mixture): Total injected: 5cc Tumescent Local Mixture: ELVT: 1000cc Normal Saline + 50cc 1% Xylocaine with 1:100,000 Epinephrine + 20cc 8.4% Sodium Bicarbonate Total Tumescent Local Injected: 450cc Laser Equipment: Laser protective googles ON patient and staff and Angiodynamics Venacure 1470 Laser Energy Used: EVLT: Greater saphenous vein 7 Cavanaugh 32Joules/cm 1469 Total # Joules 209 Seconds 46cm Sharp Count: Pre-op: 5 Post-op: 6 Dressing: compression stocking End Time: Post-op Assessment:Ambulatory and Calm Discharge Instructions: RX for Motrin 600mg E-scripted SIGN OUT COMPLETE: Yes Sadia López RN 12/03/2024 11:21 AM Signed Please follow these instructions after your endovenous laser ablation procedure: You are encouraged to walk at least 20 minutes every 3-4 hours during the day. Walking will help with the recovery process. Refrain from vigorous gym exercise and running for 72 hours. No heavy lifting (greater than 40lbs) for 3-5 days. Avoid submerging your leg (baths, swimming, hot tub) for 72 hours. You will need to wear a compression stocking for two days and two nights following your procedure. After this, compression should be worn during the day only for two weeks. You may shower the morning after your procedure. It is normal to experience some bruising, soreness, and tightening sensations after your procedure for a few weeks. [id number] Ibuprofen (Motrin 200mg), 2-3 tablets every 8 hours with food, should be taken for 7 days after your procedure to help with pain and swelling. Avoid exposure to direct sunlight for 2 weeks after your procedure. Do not fly or take long car rides for 1 week following your procedure. You will be scheduled a follow-up ultrasound 1 week after your procedure. Follow-up with Dr. Rodas will occur approximately 1 month after your procedure. If you experience severe pain, swelling, or bleeding, please contact the office at [phone] Janet Rodas DO 12/04/2024 4:06 PM Signed UNIVERSAL PROTOCOL / SAFETY CHECKLIST Procedure to be Performed: right leg EVLT Sign In: A Moment of CARE was completed. Appropriate PPE (Personal Protective Equipment) worn by all providers involved with the procedure. Special equipment not required. Patient/Surrogate Stated/Verified: Patient name, Date of , Relevant allergies, and The intended procedure Time Out: Relevant labs, photos, and/or imaging studies have been reviewed. Intended patient and procedure match the source document(s) (e.g. consent, HANDP, associated studies [imaging, pathology]) match the intended patient and procedure. Consent obtained and matches the intended procedure. Yes. Correct side/site has been marked and visible. Medications required for this procedure are verified. are not applicable. Fire risk assessed and is not applicable. Implants: are not applicable. Sign Out: Specimens not collected. All instruments, equipment, possible retained foreign bodies are accounted for. Yes. The post-procedure plan of care has been communicated to the patient or surrogate. Surgeon: Janet Rodas DO Receiving Coordinator(s): Phuong Cardenas Procedure(s): EVLT ablation of the right great saphenous vein Anesthesia: Local with 1% lidocaine, and tumescence anesthesia using 50 cc of 1% lidocaine with epinephrine 1:100,0000 + 20 cc of 8.4% sodium bicarbonate in 1000 cc of normal saline Preoperative Diagnosis: Symptomatic varicose veins right leg. Postoperative Diagnoses: Symptomatic varicose veins right leg. Operative Indications: The patient is a 34 year old female with painful varicose veins, especially on the right leg. Noninvasive vascular laboratory (more content not included)... Normal [facility] ULTRASOUND GUIDANCE FOR VENO US ABLATIONon 12-03-2024 ULTRASOUND GUIDANCE FOR VENOUS ABLATION Non-Invasive Vascular Laboratory [facility] Ultrasound Guided Ablation Procedure Unilateral - Right Date of service/time: 12/03/2024 10:21:29 AM Name: CRYSTAL MACHUCA Date of : 1990 Age: 34 years Gender: F Clinical Indication Ultrasound guidance for right endovascular laser ablation. TECHNIQUE -------- A venous duplex ultrasound examination was performed, including grayscale imaging with compression maneuvers and color Doppler and spectral Doppler examination with augmentation maneuvers and response to respiration of the below mentioned veins. IMPRESSION RIGHT SIDE - SUPERFICIAL VEINS Laser ablation of the right great saphenous vein. Treated from proximal calf to 3 cm from the saphenofemoral junction. See office note for full details. Technologist: Stefanie Cardenas RVT Ordering physician: Janet Rodas DO Interpreting physician: SUHA Cuellar DO Final CC [facility] Image : [id number] See Link below for Image Normal [facility] US VENOUS INCOMPETENCY UNL V LABon 12-03-2024 US VENOUS INCOMPETENCY UNL VAS LAB Non-Invasive Vascular Laboratory [place] [facility] Venous Valvular Incompetency Unilateral - Left Date of service/time: 12/03/2024 9:52:04 AM Name: CRYSTAL MACHUCA Date of : 1990 Age: 34 years Gender: F Clinical Indication Left GSV EVLT 11/26/2024. TECHNIQUE -------- A venous duplex ultrasound examination was performed, including grayscale imaging with compression maneuvers and color Doppler and spectral Doppler examination with augmentation maneuvers and response to respiration of the below mentioned veins. FINDINGS -------- LEFT SIDE Distal external iliac vein Doppler: normal flow. Compression: normal. Common femoral vein Doppler: normal flow. Compression: normal. Femoral vein Doppler: normal flow. Compression: normal. IMPRESSION LEFT SIDE - DEEP VEINS Negative for acute deep vein thrombosis in vessels visualized. LEFT SIDE - SUPERFICIAL VEINS Successful ablation of the left great saphenous vein from mid calf to within .9 cm from the saphenofemoral junction. The anterior accessory great saphenous vein and inferior epigastric vein are patent. The external iliac vein, common femoral vein, and femoral vein proximal are patent with respirophasic flow. There is no evidence of deep vein thrombosis. Technologist: Stefanie Cardenas T Ordering physician: JANET RODAS Interpreting physician: Shanel Tariq MD, SUHA Final CC [facility] Image : [id number] ID See Link below for Image Normal [facility] CNOVon 11-26-2024 CNOV Office Visit (VASSMD ) -------- BRIGETTECRYSTAL ([id number]) 1990 F Date Time Provider Department 11/26/24 11:00 AM JANET RODAS During your visit today, we recorded the following information about you: Pulse Blood pressure 65/minute 115/72 Janet Rodas DO 11/26/2024 1:01 PM Signed [facility] Operative Report Endovenous Laser Ablation Crystal Ko Loliashish November 1990 ALLERGIES: ALLERGIES Allergen Reactions Augmentin [Amoxicil* Hives Monroe [Hydrocodone-* Vomiting Penicillin Hives Tramadol Vomiting Physician: Janet Rodas DO Assistants: Phuong Cardenas RVT Leg: left Greater saphenous vein Position:Supine Pre-op Assessment: Ambulatory, Calm, and Oriented Xanax Dosage (Oral) : 1mg Time: 1128 SIGN IN COMPLETE: Yes Patient in Room: 1145 Vein Marked: No Hair Clipped: No Prep: chloraprep Time out: 1201 Reviewed allergies AND medications Consent Signed Correct Patient/ Date Correct Procedure Correct Side: Left Correct Position Correct Equipment Start Time: 1102 1% Xylocaine Plain + 8.4% NaBicarb (5:1 mixture): Total injected: 5cc Tumescent Local Mixture: ELVT: 1000cc Normal Saline + 50cc 1% Xylocaine with 1:100,000 Epinephrine + 20cc 8.4% Sodium Bicarbonate Total Tumescent Local Injected: 600cc Laser Equipment: Laser protective googles ON patient and staff and Angiodynamics Venacure 1470 Laser Energy Used: EVLT: Greater saphenous vein 7 Cavanaugh 37Joules/cm 1940 Total # Joules 277 Seconds 52 cm Sharp Count: Pre-op: 5 Post-op: 5 Dressinx2 bordered guaze, band aids, compression stocking End Time: 1:01 PM Post-op Assessment:Ambulatory, Calm, Oriented , and Tolerated procedure with no apparent injury Discharge Instructions: Written Homegoing Instructions given AND Reviewed Verbally with Patient Discharge Time: 1:01 PM Discharged with Fire Alarm Dispatcher: yes SIGN OUT COMPLETE: Yes Sadia López RN 11/26/2024 12:31 PM Signed Please follow these instructions after your endovenous laser ablation procedure: You are encouraged to walk at least 20 minutes every 3-4 hours during the day. Walking will help with the recovery process. Refrain from vigorous gym exercise and running for 72 hours. No heavy lifting (greater than 40lbs) for 3-5 days. Avoid submerging your leg (baths, swimming, hot tub) for 72 hours. You will need to wear a compression stocking for two days and two nights following your procedure. After this, compression should be worn during the day only for two weeks. You may shower the morning after your procedure. It is normal to experience some bruising, soreness, and tightening sensations after your procedure for a few weeks. Ulvq-ldz-uohxalm Ibuprofen (Motrin 200mg), 2-3 tablets every 8 hours with food, should be taken for 7 days after your procedure to help with pain and swelling. Avoid exposure to direct sunlight for 2 weeks after your procedure. Do not fly or take long car rides for 1 week following your procedure. You will be scheduled a follow-up ultrasound 1 week after your procedure. Follow-up with Dr. Rodas will occur approximately 1 month after your procedure. If you experience severe pain, swelling, or bleeding, please contact the office at [phone] Janet Rodas, 11/26/2024 1:01 PM Signed UNIVERSAL PROTOCOL / SAFETY CHECKLIST Procedure to be Performed: left leg EVLT Sign In: A Moment of CARE was completed. Appropriate PPE (Personal Protective Equipment) worn by all providers involved with the procedure. Special equipment not required. Patient/Surrogate Stated/Verified: Patient name, Date of , Relevant allergies, and The intended procedure Time Out: Relevant labs, photos, and/or imaging studies have been reviewed. Intended patient and procedure match the source document(s) (e.g. consent, HANDP, associated studies [imaging, pathology]) are not applicable. Consent obtained and matches the intended procedure. Yes. Correct side/site has been marked and visible. Medications required for this procedure are verified. Fire risk assessed and interventions discussed. Implants: are not applicable. Sign Out: Specimens not collected. All instruments, equipment, possible retained foreign bodies are accounted for. Yes. The post-procedure plan of care has been communicated . Surgeon: Janet Rodas DO Receiving Coordinator(s): Phuong Cardenas Procedure(s): EVLT ablation of the left great saphenous vein Anesthesia: Local with 1% lidocaine, and tumescence anesthesia using 50 cc of 1% lidocaine with epinephrine 1:100,0000 + 20 cc of 8.4% sodium bicarbonate in 1000 cc of normal saline Preoperative Diagnosis: Symptomatic varicose veins left leg. Postoperative Diagnoses: Symptomatic varicose veins left leg. Operative Indications: The theresa (more content not included)... Normal [facility] ULTRASOUND GUIDANCE FOR VENO US ABLATIONon 11-26-2024 ULTRASOUND GUIDANCE FOR VENOUS ABLATION Non-Invasive Vascular Laboratory [place] [facility] Ultrasound Guided Ablation Procedure Unilateral - Left Date of service/time: 11/26/2024 11:51:17 AM Name: CRYSTAL MACHUCA Date of : 1990 Age: 34 years Gender: F Clinical Indication Ultrasound guidance performed for a venous ablation procedure, see procedure note for full details. TECHNIQUE -------- A venous duplex ultrasound examination was performed, including grayscale imaging with compression maneuvers and color Doppler and spectral Doppler examination with augmentation maneuvers and response to respiration of the below mentioned veins. IMPRESSION LEFT SIDE - SUPERFICIAL VEINS Laser ablation of the left great saphenous vein. Treated from mid calf to 3 cm from the saphenofemoral junction. See office note for full details Technologist: Stefanie Cardenas RVT Ordering physician: Janet Rodas DO Interpreting physician: SUHA Cuellar DO Final CC [facility] : [id number] See Link below for Image Normal [facility] CNOVon 11-25-2024 CNOV Office Visit (WOUCA) -------- CRYSTAL MACHUCA ([id number]) 1990 F Date Time Provider Department 11/25/24 5:45 PM [facility] During your visit today, we recorded the following information about you: Temperature Pulse Respiration Blood pressure 97.6 degrees 70/minute 16/minute 124/82 Weight 109.2 kg Raf Garland MD 11/25/2024 6:04 PM Signed [facility] Subjective Crystal Machuca is a 34 year old female. Patient presents with: Rash: on hands x couple months, increased x this week Rash: Location: hands Duration: months Pruritis: No Pain: only feels a sharp poke if pressed on Change: spread this week Bleeding/ulceration/blis ter/pustule: tiny bumps Contacts with rash: infant diagnosed with impetigo last week Exposure: No new soaps, detergents, fabric softeners, lotions. 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 Change in medications: No. Recent illness: No. Treatment: none Rash Review of Systems Skin: Positive for rash. Objective BP 124/82 Pulse 70 Temp 36.4 ?C (97.6 ?F) Resp 16 Wt 109.2 kg (240 lb 11.9 oz) LMP 11/03/2023 (Exact Date) SpO2 98% BMI 40.06 kg/m? Physical Exam Constitutional: General: She is not in acute distress. Skin: Comments: A few sparse pinhead papules on the dorsal hands. Dry slightly scaly skin and interdigital spaces. 4 mm worsening of the pruritic is papular on the right hand fifth finger base. Neurological: Mental Status: She is alert. {ASSESSMENT/PLAN: 1. Hand eczema - ICD9: 692.9, ICD10: L30.9 Suspect irritant dermatitis. Right fifth finger papule has been present for years and is probably a nevus. Reassured her chronic hand condition is not eczema. - CONSULT TO DERMATOLOGY provided telephone number for local dermatology since she does not want to travel. Raf Garland MD Differential Diagnoses - Hand eczema is more likely for the following reason(s): suggested by HANDP - Impetigo is less likely for the following reason(s): HANDP not suggestive - Scabies is less likely for the following reason(s): No burrowing tracts, nonpruritic, no spread to other body parts or contacts Procedures Allergies As of Date: 11/25/2024 Noted Allergy Reaction AUGMENTIN (AMOXICILLIN-POT CLAVUL*04/01/2015 4 - Hives NORCO (HYDROCODONE-ACETAMINOPH EN) 04/01/2015 11 - Vomiting PENICILLIN 04/01/2015 4 - Hives TRAMADOL 04/01/2015 11 - Vomiting Date Reviewed: 11/25/2024 Reviewed by: Sadia Jarvis MA - Fully Assessed Reason for Visit: Rash [1087] Cmt: on hands x couple months, increased x this week Primary Visit Diagnosis:Hand eczema [L30.9] Order(s):CONSULT TO DERMATOLOGY [9006] Order #: [id number]: 1 FUTURE Prescriptions as of 11/25/2024 - cyclobenzaprine (FLEXERIL) 10 mg tablet Take 1 tablet by mouth three times a day as needed for muscle spasm or pain. - SYNTHROID 25 mcg tablet Take 1 tablet by mouth once daily. - montelukast (SINGULAIR) 10 mg tablet Take 1 tablet by mouth daily at bedtime. - metFORMIN ER (GLUCOPHAGE XR) 500 mg 24 hr tablet Take 1 tablet by mouth daily with dinner for 14 days, THEN 2 tablets daily with dinner. - QUEtiapine (SEROQUEL) 25 mg tablet Take 25 mg by mouth two times a day. - famotidine (PEPCID) 40 mg tablet Take 1 tablet by mouth daily at bedtime. - SUBLOCADE 100 mg/0.5 mL injection - FLUoxetine (PROZAC) 20 mg capsule Take 1 capsule by mouth every afternoon. - lithium carbonate 600 mg capsule Take 750 mg by mouth at bedtime as needed. Facility-Administered Medications as of 11/25/2024 - lidocaine 1%-EPINEPHrine 1:100,000 50 mL, sodium bicarbonate 20 mEq in NaCl 0.9% 1,000 mL solution (TUMESCENT) Problem List As Of Date 11/25/2024 Noted Resolved HRP (high risk ) [O09.90] 09/02/2023 Bipolar disorder (HCC) [F31.9] Patient noncompliance [Z91.199] 12/10/2022 Polysubstance dependence (HCC) [F19.20] 12/10/2022 Menometrorrhagia [N92.1] 12/10/2022 Vaginal bleeding affecting early [O20*09/14/2021 12/10/2022 complicated by subutex maintenance, a*12/10/2022 09/02/2023 Tobacco use disorder [F17.200] 01/07/2023 History of posttraumatic stress disorder (PTSD)*04/01/2023 M-Power Consult 06/12 [O99.891] 04/02/2023 09/02/2023 Anemia complicating , third trimester *05/03/2023 09/02/2023 Polyhydramnios in third trimester [O40.3XX0] 06/26/2023 09/02/2023 Supervision of other high risk pregnancies, thi*07/09/2023 09/02/2023 History of section [Z98.891] 09/02/2023 History of opioid abuse (HCC) [F11.11] 09/02/2023 Obesity, Class I, BMI 30-34.9 [E66.811] 04/14/2024 Obesity, Class II, BMI 35-39.9 [E66.812] 05/14/2024 Left-sided low back pain with left-sided sciati*05/26/2024 Neck pain on left side [M54.2] 05/26/2024 Cervical radiculopathy [M54.12] 05/26/2024 Level of Service: OFFICE/OUTPATIENT ESTA (more content not included)... Normal [facility] CNOVon 11-19-2024 CNOV Office Visit (ORMMNC ) -------- CRYSTAL MACHUCA ([id number]) 1990 F Date Time Provider Department 11/19/24 10:00 AM MIKHAIL MCKEON [facility] During your visit today, we recorded the following information about you: Pulse Weight Height 68/minute 111.1 kg 1.651 m Sylvia Bansal MA 11/19/2024 10:58 AM Signed 34 y/o female patient here today to follow up with lumbar pain. MRI completed. Mikhail Mckeon MD 11/19/2024 10:58 AM Signed Crystal Machuca is a 34 year old presenting with Follow Up, Pain, and Results - Mri of the Lower Back HPI: Patient is here for follow-up of her low back pain. She has also had the neck pain but that is improved. She states the back pain is actually worsening. She did have her MRI recently and is here to go over those results. She gets pain in the mid to lower back radiating mostly into the left lower extremity. Muscle relaxers have helped slightly in the past but she is out of those. She is still doing stretches at home but has finished physical therapy. Review of Systems Constitutional: Negative for fever. Musculoskeletal: Positive for back pain. Neurological: Positive for tingling (Lower extremities left greater than right) and focal weakness (Extremities left greater than right). PAST MEDICAL HISTORY Diagnosis Date Anorexia nervosa (HCC) Asthma (HCC) Bipolar disorder (HCC) Borderline personality disorder (HCC) Generalized anxiety disorder Headache High risk sexual behavior pt stopped B/C and she is on high risk antipsychotic medication HRP (high risk ) ([facility]) substance abuse/bipolardisorder/pe rsonality disorder Menometrorrhagia Nausea and vomiting Opioid dependence ([facility]) on suboxone psych/addiction dr delarosa Patient noncompliance Polysubstance dependence ([facility]) heroin, thc, opiates , cocaine Polysubstance dependence (HCC) Subjective visual disturbance Tobacco dependence syndrome Ulcerative colitis (HCC) FAMILY HISTORY Problem Relation Age of Onset Diabetes Mother COPD Father No Known Problems Brother Lymphoma Maternal Grandmother Cancer Maternal Grandfather Colon, lung, brain, throat cancer other (heart disease [Other]) Maternal Grandfather Breast Cancer Paternal Grandmother Diabetes Paternal Grandfather Hypertension Paternal Grandfather Hyperlipidemia Paternal Grandfather Tobacco Use: High Risk (11/19/2024) Patient History Smoking Tobacco Use: Every Day Smokeless Tobacco Use: Never Passive Exposure: Not on file Alcohol Use: No Current Outpatient Medications Medication Sig SYNTHROID 25 mcg tablet Take 1 tablet by mouth once daily. montelukast (SINGULAIR) 10 mg tablet Take 1 tablet by mouth daily at bedtime. metFORMIN ER (GLUCOPHAGE XR) 500 mg 24 hr tablet Take 1 tablet by mouth daily with dinner for 14 days, THEN 2 tablets daily with dinner. tiZANidine (ZANAFLEX) 4 mg tablet Take 1 tablet by mouth once daily. QUEtiapine (SEROQUEL) 25 mg tablet Take 25 mg by mouth two times a day. famotidine (PEPCID) 40 mg tablet Take 1 tablet by mouth daily at bedtime. SUBLOCADE 100 mg/0.5 mL injection FLUoxetine (PROZAC) 20 mg capsule Take 1 capsule by mouth every afternoon. lithium carbonate 600 mg capsule Take 750 mg by mouth at bedtime as needed. No current facility-administered medications for this visit. ALLERGIES Allergen Reactions Augmentin [Amoxicil* Hives Monroe [Hydrocodone-* Vomiting Penicillin Hives Tramadol Vomiting Pulse 68 Ht 5' 5" (1.65m) Wt 245 lb (111.1kg) SpO2 98% LMP 11/03/2023 BMI 40.77 kg/(m2). Physical Exam Vitals reviewed. Constitutional: General: She is not in acute distress. Musculoskeletal: Comments: Pain has tenderness paralumbar soft tissue. No midline tenderness. She has 2+ patella and Achilles reflexes equal bilateral. She has no focal weakness with lower extremity strength testing but some mild generalized weakness. Her MRI showed mild spinal canal stenosis at L2-3 with mild right neuroforaminal stenosis at L4-5. There was no high-grade stenosis. She did have a 4 mm synovial cyst on the left at L4-5 projecting in the dorsal paraspinal soft tissues. Some mild disc bulging. Neurological: Mental Status: She is alert. Procedures ASSESSMENT/PLAN: 1. Left-sided low back pain with left-sided sciatica, unspecified chronicity - ICD9: 724.3, ICD10: M54.42 (primary diagnosis) Patient continues to have back pain with some symptoms into the left lower extremity. MRI showed minor changes but there was some stenosis at L4-5 and L2-3. She also has a synovial cyst at L4-5. At this time I am referring her to pain management for further treatment. She is prescribed more Flexeril to take for symptomatic relief. I would like to see her back in 3 months for recheck. If she still having quite a bit of problems I would refer her to a greenhouse specialist. - CONSULT TO PAIN MGT 2. Spina (more content not included)... [facility] Tele[facility] (EMQ) -------- CRYSTAL MACHUCA ([id number]) 1990 F Date Time Provider Department 11/13/24 TORSTEN BURROWS [facility] During your visit today, we recorded the following information about you: Vonda Dolan MA 11/13/2024 9:32 AM Signed Dear Provider, Your patient's medication Synthroid 25MCG tablets was denied. Denial letters are sent directly to the patient and at times to the healthcare providers. If we receive a denial letter, it will be indexed for your review. If you want to appeal the decision. Please submit your request via staff message to the Jeromy Leal Auth Appeals Pool ([id number]). You can find templates listed below to support your appeal in [employer] (Epic drop down, select patient care, select send letter). If it is an urgent request, you can email the FL[employer] tirado Team at [email or web address]. Please make sure the documents below are completed in order to process your request. If the appeal is denied, do you want to schedule a peer to peer Yes/No. We will schedule peer to peer automatically if yes. Thank You, Jeromy Leal Auth Appeals Team Jeromy RUTH Appeal letter Jeromy RUTH Letter of Medical Necessity Jeromy RUTH [facility] Apryl Blum MA 11/17/2024 10:48 AM Signed Spoke with provider patient will be directed to [facility]. The [facility] delivers program, prescription has been sent. Apryl Blum MA Allergies As of Date: 11/13/2024 Noted Allergy Reaction AUGMENTIN (AMOXICILLIN-POT CLAVUL*04/01/2015 4 - Hives NORCO (HYDROCODONE-ACETAMINOPH EN) 04/01/2015 11 - Vomiting PENICILLIN 04/01/2015 4 - Hives TRAMADOL 04/01/2015 11 - Vomiting Date Reviewed: 10/27/2024 Reviewed by: Phyllis De Leon MD - Fully Assessed Reason for Visit: Medication Preauthorization [914] Cmt: Denied Synthroid 25MCG tablets Prescriptions as of 11/17/2024 - SYNTHROID 25 mcg tablet Take 1 tablet by mouth once daily. - montelukast (SINGULAIR) 10 mg tablet Take 1 tablet by mouth daily at bedtime. - metFORMIN ER (GLUCOPHAGE XR) 500 mg 24 hr tablet Take 1 tablet by mouth daily with dinner for 14 days, THEN 2 tablets daily with dinner. - tiZANidine (ZANAFLEX) 4 mg tablet Take 1 tablet by mouth once daily. - QUEtiapine (SEROQUEL) 25 mg tablet Take 25 mg by mouth two times a day. - famotidine (PEPCID) 40 mg tablet Take 1 tablet by mouth daily at bedtime. - SUBLOCADE 100 mg/0.5 mL injection - FLUoxetine (PROZAC) 20 mg capsule Take 1 capsule by mouth every afternoon. - lithium carbonate 600 mg capsule Take 750 mg by mouth at bedtime as needed. Problem List As Of Date 11/13/2024 Noted Resolved HRP (high risk ) [O09.90] 09/02/2023 Bipolar disorder (HCC) [F31.9] Patient noncompliance [Z91.199] 12/10/2022 Polysubstance dependence (HCC) [F19.20] 12/10/2022 Menometrorrhagia [N92.1] 12/10/2022 Vaginal bleeding affecting early [O20*09/14/2021 12/10/2022 complicated by subutex maintenance, a*12/10/2022 09/02/2023 Tobacco use disorder [F17.200] 01/07/2023 History of posttraumatic stress disorder (PTSD)*04/01/2023 M-Power Consult 06/12 [O99.891] 04/02/2023 09/02/2023 Anemia complicating , third trimester *05/03/2023 09/02/2023 Polyhydramnios in third trimester [O40.3XX0] 06/26/2023 09/02/2023 Supervision of other high risk pregnancies, thi*07/09/2023 09/02/2023 History of section [Z98.891] 09/02/2023 History of opioid abuse (HCC) [F11.11] 09/02/2023 Obesity, Class I, BMI 30-34.9 [E66.811] 04/14/2024 Obesity, Class II, BMI 35-39.9 [E66.812] 05/14/2024 Left-sided low back pain with left-sided sciati*05/26/2024 Neck pain on left side [M54.2] 05/26/2024 Cervical radiculopathy [M54.12] 05/26/2024 Encounter Status:Closed by VONDA DOLAN on 11/13/24 [facility] 11-12-2024 [facility] Telephone (EMQ) -------- CRYSTAL MACHUCA ([id number]) 1990 F Date Time Provider Department 11/12/24 TORSTEN BURROWS EM During your visit today, we recorded the following information about you: Vonda Dolan MA 11/12/2024 9:36 AM Signed Initiated PA for Synthroid 25MCG tablets [facility] Completed Waiting for determination Vonda Prior Network/Telecom Engineer III Endocrinology AND Metabolic [place] Allergies As of Date: 11/12/2024 Noted Allergy Reaction AUGMENTIN (AMOXICILLIN-POT CLAVUL*04/01/2015 4 - Hives NORCO (HYDROCODONE-ACETAMINOPH EN) 04/01/2015 11 - Vomiting PENICILLIN 04/01/2015 4 - Hives TRAMADOL 04/01/2015 11 - Vomiting Date Reviewed: 10/27/2024 Reviewed by: Phyllis De Leon MD - Fully Assessed Reason for Visit: Medication Preauthorization [914] Cmt: PA- Synthroid 25MCG tablets Prescriptions as of 11/17/2024 - SYNTHROID 25 mcg tablet Take 1 tablet by mouth once daily. - montelukast (SINGULAIR) 10 mg tablet Take 1 tablet by mouth daily at bedtime. - metFORMIN ER (GLUCOPHAGE XR) 500 mg 24 hr tablet Take 1 tablet by mouth daily with dinner for 14 days, THEN 2 tablets daily with dinner. - tiZANidine (ZANAFLEX) 4 mg tablet Take 1 tablet by mouth once daily. - QUEtiapine (SEROQUEL) 25 mg tablet Take 25 mg by mouth two times a day. - famotidine (PEPCID) 40 mg tablet Take 1 tablet by mouth daily at bedtime. - SUBLOCADE 100 mg/0.5 mL injection - FLUoxetine (PROZAC) 20 mg capsule Take 1 capsule by mouth every afternoon. - lithium carbonate 600 mg capsule Take 750 mg by mouth at bedtime as needed. Problem List As Of Date 11/12/2024 Noted Resolved HRP (high risk ) [O09.90] 09/02/2023 Bipolar disorder (HCC) [F31.9] Patient noncompliance [Z91.199] 12/10/2022 Polysubstance dependence (HCC) [F19.20] 12/10/2022 Menometrorrhagia [N92.1] 12/10/2022 Vaginal bleeding affecting early [O20*09/14/2021 12/10/2022 complicated by subutex maintenance, a*12/10/2022 09/02/2023 Tobacco use disorder [F17.200] 01/07/2023 History of posttraumatic stress disorder (PTSD)*04/01/2023 M-Power Consult 06/12 [O99.891] 04/02/2023 09/02/2023 Anemia complicating , third trimester *05/03/2023 09/02/2023 Polyhydramnios in third trimester [O40.3XX0] 06/26/2023 09/02/2023 Supervision of other high risk pregnancies, thi*07/09/2023 09/02/2023 History of section [Z98.891] 09/02/2023 History of opioid abuse (HCC) [F11.11] 09/02/2023 Obesity, Class I, BMI 30-34.9 [E66.811] 04/14/2024 Obesity, Class II, BMI 35-39.9 [E66.812] 05/14/2024 Left-sided low back pain with left-sided sciati*05/26/2024 Neck pain on left side [M54.2] 05/26/2024 Cervical radiculopathy [M54.12] 05/26/2024 Encounter Status:Closed by VONDA DOLAN on 11/12/24 Normal [facility] MR Lumbar spine WO contrasto n 11-12-2024 IMPRESSION: Overall unchanged spondylosis since 09/27/2011 with mild spinal canal stenosis at L2-3 and mild right neural foraminal stenosis at L4-5. No high-grade stenosis. 4 mm synovial cyst from the left L4-5 facet joint projects into the left dorsal paraspinal soft tissues. Anatomic Thoracic/Lumbar Variant: None. L4-5 is considered the level of the iliac crest and assume there are 5 lumbar-type vertebrae. [employer]: MARY Transcribe Date/Time: Nov 12 2024 12:37P Dictated by : AMPARO BERGER MD This examination was interpreted and the report reviewed and electronically signed by: AMPARO BERGER MD on Nov 12 2024 12:48PM [facility] DIVISION OF RADIOLOGY * * *Final Report* * * DATE OF EXAM: Nov 12 2024 11:10AM [facility] 0303 - MRI LUMBAR SPINE WO IVCON / PROCEDURE REASON: Spinal stenosis of lumbar region with neurogenic claudication * * * * Physician Interpretation * * * * EXAMINATION: MRI LUMBAR SPINE WO IVCON HISTORY: Spinal stenosis of lumbar region with neurogenic claudication, low back pain left worse than right TECHNIQUE: Routine lumbar spine MR protocol without gadolinium. MQ: [id number] COMPARISON: MR lumbar spine dated 09/27/2011 RESULT: Localizer Images: No additional findings. Counting Reference: Lumbosacral junction. Anatomic Thoracic/Lumbar Variant: None. L4-5 is considered the level of the iliac crest and assume there are 5 lumbar-type vertebrae. Alignment: Anatomic alignment. Conus: Normal signal and morphology. Bones: Mild marrow edema in the posterior inferior L2 vertebral body. Small Schmorl's nodes in the inferior T12-L1 endplates. No acute fracture. Intervertebral Discs: Disc desiccation at L2-3. Soft Tissues: Unremarkable dorsal paraspinal soft tissues. Lower Thoracic Spine: No substantial spinal canal or neural foraminal stenosis. L1-2: Patent canal and foramina. L2-3: Patent neural foramina. Mild spinal canal stenosis related to disc bulge. Overall unchanged since 09/27/2011. L3-4: Patent canal and foramina. L4-5: Patent spinal canal and left neural foramen. Mild right neural foraminal stenosis related to eccentric right disc bulge. Overall unchanged since 09/27/2011. 4 mm synovial cyst arising from the left facet joint projecting into the left dorsal paraspinal soft tissues. L5-S1: Patent canal and foramina. Sacrum and Iliac Wings: Normal imaged sacrum and iliac wings. DIVISION OF RADIOLOGY Provider, [facility] - 11/12/2024 * * *Final Report* * * DATE OF EXAM: Nov 12 2024 11:10AM [facility] 0303 - MRI LUMBAR SPINE WO IVCON / PROCEDURE REASON: Spinal stenosis of lumbar region with neurogenic claudication * * * * Physician Interpretation * * * * EXAMINATION: MRI LUMBAR SPINE WO IVCON HISTORY: Spinal stenosis of lumbar region with neurogenic claudication, low back pain left worse than right TECHNIQUE: Routine lumbar spine MR protocol without gadolinium. MQ: [id number] COMPARISON: MR lumbar spine dated 09/27/2011 RESULT: Localizer Images: No additional findings. Counting Reference: Lumbosacral junction. Anatomic Thoracic/Lumbar Variant: None. L4-5 is considered the level of the iliac crest and assume there are 5 lumbar-type vertebrae. Alignment: Anatomic alignment. Conus: Normal signal and morphology. Bones: Mild marrow edema in the posterior inferior L2 vertebral body. Small Schmorl's nodes in the inferior T12-L1 endplates. No acute fracture. Intervertebral Discs: Disc desiccation at L2-3. Soft Tissues: Unremarkable dorsal paraspinal soft tissues. Lower Thoracic Spine: No substantial spinal canal or neural foraminal stenosis. L1-2: Patent canal and foramina. L2-3: Patent neural foramina. Mild spinal canal stenosis related to disc bulge. Overall unchanged since 09/27/2011. L3-4: Patent canal and foramina. L4-5: Patent spinal canal and left neural foramen. Mild right neural foraminal stenosis related to eccentric right disc bulge. Overall unchanged since 09/27/2011. 4 mm synovial cyst arising from the left facet joint projecting into the left dorsal paraspinal soft tissues. L5-S1: Patent canal and foramina. Sacrum and Iliac Wings: Normal imaged sacrum and iliac wings. IMPRESSION IMPRESSION: Overall unchanged spondylosis since 09/27/2011 with mild spinal canal stenosis at L2-3 and mild right neural foraminal stenosis at L4-5. No high-grade stenosis. 4 mm synovial cyst from the left L4-5 facet joint projects into the left dorsal paraspinal soft tissues. Anatomic Thoracic/Lumbar Variant: None. L4-5 is considered the level of the iliac crest and assume there are 5 lumbar-type vertebrae. [employer]: [facility] Transcribe Date/Time: Nov 12 2024 12:37P Dictated by : AMPARO BERGER MD This examination was interpreted and the report reviewed and electronically signed by: AMPARO BERGER MD on Nov 12 2024 12:48PM EST [facility] Radiology Study observation (narrative) [facility] MR Lumbar spine WO contrastO rdered By: [facility] Provider on 11-12-2024 [facility] MRI LUMBAR SPINE WO IVCONon 11-12-2024 MRI LUMBAR SPINE WO IVCON * * *Final Report* * * DATE OF EXAM: Nov 12 2024 11:10AM [facility] 0303 - MRI LUMBAR SPINE WO IVCON / PROCEDURE REASON: Spinal stenosis of lumbar region with neurogenic claudication * * * * Physician Interpretation * * * * EXAMINATION: MRI LUMBAR SPINE WO IVCON HISTORY: Spinal stenosis of lumbar region with neurogenic claudication, low back pain left worse than right TECHNIQUE: Routine lumbar spine MR protocol without gadolinium. MQ: [id number] COMPARISON: MR lumbar spine dated 09/27/2011 RESULT: Localizer Images: No additional findings. Counting Reference: Lumbosacral junction. Anatomic Thoracic/Lumbar Variant: None. L4-5 is considered the level of the iliac crest and assume there are 5 lumbar-type vertebrae. Alignment: Anatomic alignment. Conus: Normal signal and morphology. Bones: Mild marrow edema in the posterior inferior L2 vertebral body. Small Schmorl's nodes in the inferior T12-L1 endplates. No acute fracture. Intervertebral Discs: Disc desiccation at L2-3. Soft Tissues: Unremarkable dorsal paraspinal soft tissues. Lower Thoracic Spine: No substantial spinal canal or neural foraminal stenosis. L1-2: Patent canal and foramina. L2-3: Patent neural foramina. Mild spinal canal stenosis related to disc bulge. Overall unchanged since 09/27/2011. L3-4: Patent canal and foramina. L4-5: Patent spinal canal and left neural foramen. Mild right neural foraminal stenosis related to eccentric right disc bulge. Overall unchanged since 09/27/2011. 4 mm synovial cyst arising from the left facet joint projecting into the left dorsal paraspinal soft tissues. L5-S1: Patent canal and foramina. Sacrum and Iliac Wings: Normal imaged sacrum and iliac wings. IMPRESSION: Overall unchanged spondylosis since 09/27/2011 with mild spinal canal stenosis at L2-3 and mild right neural foraminal stenosis at L4-5. No high-grade stenosis. 4 mm synovial cyst from the left L4-5 facet joint projects into the left dorsal paraspinal soft tissues. Anatomic Thoracic/Lumbar Variant: None. L4-5 is considered the level of the iliac crest and assume there are 5 lumbar-type vertebrae. [employer]: [employer] Transcribe Date/Time: Nov 12 2024 12:37P Dictated by : AMPARO BERGER MD This examination was interpreted and the report reviewed and electronically signed by: AMPARO BERGER MD on Nov 12 2024 12:48PM EST [id number] Normal [facility] T4 Free SerPl-mCncon 025 Free T4 [Mass/Vol] 0.7 ng/dL Low 0.9-1.7 [facility] Comment on above: Order Comment: Nusrat morgan Type: BLOOD SPECIMENOrdering Facility: [facility] Address: [address] [place] [address] Performed By: #### 3 024-7, 3016-3 ####[facility] LABCLIA [id number] [place] [address] [place] THYROGLOBULIN ANTIBODYon Thyroglobulin Ab Qn [IU]/mL Normal <4.0 [facility] Comment on above: Order Comment: Nusrat morgan Type: BLOOD SPECIMENOrdering Facility: [facility] Address: [address] [place] [address] Result Comment: The Thyroglobulin Antibody test was performed using the [employer] DXI paramagnetic particle chemiluminescent immunoassay method. Results obtained with different assay methods or kits cannot be used interchangeably. Performed By: #### T ESME ####[facility] LABCLIA [id number] [address] [place] THYROID PEROXIDASE ANTIBODYo n 10-26-2024 TPO Ab Qn [IU]/mL Normal <5.6 [facility] Comment on above: Order Comment: Nusrat morgan Type: BLOOD SPECIMENOrdering Facility: [facility] Address: [address] [place] [address] Result Comment: Thyr oid Peroxidase Antibody test is used as an aid in diagnosis of autoimmune thyroid disease. Clinical correlation is required. Performed By: #### M ICRO ####[facility] LABIA [id number] [place] [address] [place] TSH SerPl-aCncon 10-26-2024 TSH Qn 16.600 m[IU]/L High 0.270-4.200 [facility] Comment on above: Order Comment: Nusrat morgan Type: BLOOD SPECIMENOrdering Facility: [facility] Address: [address] [place] [address] Result Comment: If t he patient is , TSH reference range varies by gestational period: First Trimester (weeks 9-12): 0.180-2.990 mIU/L Second Trimester: 0.110-3.980 mIU/L Third Trimester: 0.480-4.710 mIU/L Thmoas Hinojosa et al. A Practical Approach for the Verifications and Determination of Site- and Trimester-Specific Reference Intervals for Thyroid Function tests in . Thyroid, 2019:29:3:412-420. Tin Montelongo, et al. 2017 Guidelines of the [place] [employer] for the Diagnosis and Management of Thyroid Disease during and the . Thyroid, 2017:27:3:315-389. Performed By: #### 3 024-7, 3016-3 ####[facility] [id number] [address] CNOVon 10-06-2024 CNOV Office Visit (VASSWS ) -------- CRYSTAL MACHUCA ([id number]) 1990 F Date Time Provider Department 10/06/24 10:00 AM JANET RODASS During your visit today, we recorded the following information about you: Pulse Blood pressure 63/minute 129/80 Janet Rodas DO 10/06/2024 4:39 PM Signed [facility] [place] DEPARTMENT OF VASCULAR SURGERY OUTPATIENT VISIT DATE October 06, 2024 OUTPATIENT VISIT TYPE ESTABLISHED SERVICE DATE: 10/06/2024 SERVICE TIME: 10:12 AM PRIMARY CARE PHYSICIAN: Amilacr Rivera PA-C HISTORY OF PRESENT ILLNESS: Ms. Machuca is a 34 year old female who presents today for a vascular surgery follow-up visit for symptomatic varicose veins. She denies new complaints. She does wear compression stockings. States legs are sore and tender throughout the day. She also describes a tightness. PAST MEDICAL HISTORY Diagnosis Date Anorexia nervosa (HCC) Asthma (HCC) Bipolar disorder (HCC) Borderline personality disorder (HCC) Generalized anxiety disorder Headache High risk sexual behavior pt stopped B/C and she is on high risk antipsychotic medication HRP (high risk ) (HCC) substance abuse/bipolardisorder/pe rsonality disorder Menometrorrhagia Nausea and vomiting Opioid dependence (HCC) on suboxone psych/addiction dr delarosa Patient noncompliance Polysubstance dependence (HCC) heroin, thc, opiates , cocaine Polysubstance dependence (HCC) Subjective visual disturbance Tobacco dependence syndrome Ulcerative colitis (HCC) PAST SURGICAL HISTORY Procedure Laterality Date ADENOIDECTOMY HX 02/26/2013 DELIVERY ONLY Bilateral 07/16/2023 bilateral salpingectomy COLONOSCOPY SCREENING dx - ulcerative, lymphocitic - Dr. Cummings, Friend - dx at 13yrs old EGD W/O BRSH SPEC VARICIES INJ Ulcers in stomach ORAL SURGERY PROCEDURE wisdom teeth removed TONSILLECTOMY HX 02/26/2013 SOCIAL HISTORY Social History Tobacco Use Smoking status: Every Day Current packs/day: 0.50 Types: Cigarettes Smokeless tobacco: Never Vaping Use Vaping status: Former Substance Use Topics Alcohol use: No Drug use: Not Currently Types: Marijuana, Narcotics Comment: mjn during ; but not recently; Hx opiod use - attends AA MEDICATIONS: montelukast (SINGULAIR) 10 mg tablet Take 1 tablet by mouth daily at bedtime. tiZANidine (ZANAFLEX) 4 mg tablet Take 1 tablet by mouth once daily. QUEtiapine (SEROQUEL) 25 mg tablet Take 25 mg by mouth two times a day. famotidine (PEPCID) 40 mg tablet Take 1 tablet by mouth daily at bedtime. SUBLOCADE 100 mg/0.5 mL injection FLUoxetine (PROZAC) 20 mg capsule Take 1 capsule by mouth every afternoon. lithium carbonate 600 mg capsule Take 750 mg by mouth at bedtime as needed. ALLERGIES: ALLERGIES Allergen Reactions Augmentin [Amoxicil* Hives [place] [Hydrocodone-* Vomiting Penicillin Hives Tramadol Vomiting PHYSICAL EXAM: BP 129/80 (BP Site: Left Arm, BP Position: Sitting, BP Cuff Size: Regular Adult) Pulse 63 LMP 11/03/2023 (Exact Date) SpO2 99% General: Alert and oriented Extremities: Edema and Varicose veins Neurological: Normal cognition and motor skills. Vascular: Posterior Tibial Right: Normal - Left: Normal Diagnostic tests reviewed for today's visit: Most recent labs Most recent imaging Venous Reflux Testing RIGHT SIDE - DEEP VEINS Negative for acute deep vein thrombosis in vessels visualized. Positive for valvular incompetency in the common femoral vein. RIGHT SIDE - SUPERFICIAL VEINS Positive for valvular incompetency in the great saphenous vein. Varicosity arises mid thigh and rejoins the great saphenous at mid calf. Acute superficial thrombophlebitis in the varicosity off the great saphenous vein at the knee crease. (Appears acute on chronic thrombus) The great saphenous vein is small and discontinuous distal thigh to mid calf. Negative for valvular incompetency in the small saphenous vein. LEFT SIDE - DEEP VEINS Negative for acute deep vein thrombosis in vessels visualized. Positive for valvular incompetency in the common femoral vein. LEFT SIDE - SUPERFICIAL VEINS Positive for valvular incompetency in the great saphenous vein. Varicosity arises mid thigh and rejoins the great saphenous vein at mid calf. Chronic post-thrombotic change in the varicosity off the great saphenous vein at the proximal calf. The great saphenous vein is discontinuous mid thigh to mid calf. Positive for valvular incompetency in the small saphenous vein. Varicosities mid calf communicate with great saphenous vein varicosities. IMPRESSION: Ms. Machuca is a 34 year old female with symptomatic varicose veins . PLAN and RECOMMENDATIONS: CEAP CLASSIFICATION OF VENOUS DISEASE: CLINICAL C2: Varicose veins C3: Edema S: Symptomatic, including ache, pain, tightness, skin irr (more content not included)... Normal [facility] VENOUS INCOMPETENCY GAIL V LABon 10-01-2024 VENOUS INCOMPETENCY GAIL VAS LAB Non-Invasive Vascular Laboratory [facility] Venous Valvular Incompetency Bilateral/Complete Date of service/time: 10/01/2024 10:08:43 AM Name: CRYSTAL MACHUCA Date of : 1990 Age: 34 years Gender: F Clinical Indication Chronic venous insufficiency, varicose veins, lower extremity swelling and symptoms of postural discomfort. TECHNIQUE -------- A venous duplex ultrasound examination was performed, including grayscale imaging with compression maneuvers and color Doppler and spectral Doppler examination with augmentation maneuvers and response to respiration of the below mentioned veins. FINDINGS -------- Patient position reverse Trendelenburg 45 degrees. RIGHT SIDE Method of augmentation: manual. Common femoral vein Doppler: abnormal flow with reflux. Compression: normal. Femoral vein Doppler: normal flow. Compression: normal. Popliteal vein Doppler: normal flow. Compression: normal. Great saphenous vein Compression: normal. Small saphenous vein Compression: normal. Varicosity off the great saphenous vein Compression: abnormal. RIGHT GREAT SAPHENOUS VEIN Saphenofemoral junction Valsalva reflux greater than or equal to 0.5 second. Size 0.98 cm. Proximal thigh Valsalva reflux greater than or equal to 0.5 second. Size 0.62 cm. Mid thigh Augmentation reflux greater than or equal to 0.5 second. Size 0.22 cm. Distal thigh Augmentation reflux not performed. Size 0.22 cm. Mid calf Augmentation reflux greater than or equal to 0.5 second. Size 0.46 cm. Distal calf Augmentation reflux none. Size 0.26 cm. RIGHT SMALL SAPHENOUS VEIN Proximal calf Augmentation reflux none. Size 0.17 cm. Mid calf Augmentation reflux none. Size 0.25 cm. Distal calf Augmentation reflux none. Size 0.23 cm. RIGHT BR[employer]CHES [employer] PERFORAT[employer] Varicosity mid thigh Size 0.69 cm. Varicosity distal thigh Size 0.55 cm. Varicosity proximal calf Augmentation reflux greater than or equal to 0.5 second. Size 0.40 cm. [employer] vein mid/distal calf from a varicosity to the posterior tibial vein Augmentation reflux none. Valsalva reflux none. Size 0.44 cm. Depth 1.33 cm. LEFT SIDE Method of augmentation: manual. Common femoral vein Doppler: abnormal flow with reflux. Compression: normal. Femoral vein Doppler: normal flow. Compression: normal. Popliteal vein Doppler: normal flow. Compression: normal. Great saphenous vein Compression: normal. Small saphenous vein Compression: normal. Varicosity off the great saphenous vein Compression: abnormal. LEFT GREAT SAPHENOUS VEIN Saphenofemoral junction Valsalva reflux greater than or equal to 0.5 second. Size 0.79 cm. Proximal thigh Valsalva reflux greater than or equal to 0.5 second. Size 0.62 cm. Mid calf Augmentation reflux greater than or equal to 0.5 second. Size 0.39 cm. Distal calf Augmentation reflux greater than or equal to 0.5 second. Size 0.39 cm. LEFT SMALL SAPHENOUS VEIN Proximal calf Augmentation reflux none. Size 0.25 cm. Mid calf Augmentation reflux greater than or equal to 0.5 second. Size 0.34 cm. Distal calf Augmentation reflux greater than or equal to 0.5 second. Size 0.20 cm. LEFT [employer]ES [employer] Varicosity mid thigh Augmentation reflux greater than or equal to 0.5 second. Size 0.54 cm. Varicosity distal thigh Size 0.64 cm. Varicosity knee crease Augmentation reflux greater than or equal to 0.5 second. Size 0.55 cm. IMPRESSION RIGHT SIDE - DEEP VEINS Negative for acute deep vein thrombosis in vessels visualized. Positive for valvular incompetency in the common femoral vein. RIGHT SIDE - SUPERFICIAL VEINS Positive for valvular incompetency in the great saphenous vein. Varicosity arises mid thigh and rejoins the great saphenous at mid calf. Acute superficial thrombophlebitis in the varicosity off the great saphenous vein at the knee crease. (Appears acute on chronic thrombus) The great saphenous vein is small and discontinuous distal thigh to mid calf. Negative for valvular incompetency in the small saphenous vein. LEFT SIDE - DEEP VEINS Negative for acute deep vein thrombosis in vessels visualized. Positive for valvular incompetency in the common femoral vein. LEFT SIDE - SUPERFICIAL VEINS Positive for valvular incompetency in the great saphenous vein. Varicosity arises mid thigh and rejoins the great saphenous vein at mid calf. Chronic post-thrombotic change in the varicosity off the great saphenous vein at the proximal calf. The great saphenous vein is discontinuous mid thigh to mid calf. Positive for valvular incompetency in the small saphenous vein. Varicosities mid calf communicate with great saphenous vein varicosities. Technologist: Ninoska Goldstein RVT, [facility] Ordering physician: JANET RODAS Interpreting physician: Red (more content not included)... Normal [facility] US Vein - bilateralon 2024 Non-Invasive Vascular Laboratory [facility] Venous Valvular Incompetency Bilateral/Complete Date of service/time: 10/01/2024 10:08:43 AM Name: CRYSTAL MACHUCA Date of : 1990 Age: 34 years Gender: F Clinical Indication Chronic venous insufficiency, varicose veins, lower extremity swelling and symptoms of postural discomfort. TECHNIQUE -------- A venous duplex ultrasound examination was performed, including grayscale imaging with compression maneuvers and color Doppler and spectral Doppler examination with augmentation maneuvers and response to respiration of the below mentioned veins. FINDINGS -------- Patient position reverse Trendelenburg 45 degrees. RIGHT SIDE Method of augmentation: manual. Common femoral vein Doppler: abnormal flow with reflux. Compression: normal. Femoral vein Doppler: normal flow. Compression: normal. Popliteal vein Doppler: normal flow. Compression: normal. Great saphenous vein Compression: normal. Small saphenous vein Compression: normal. Varicosity off the great saphenous vein Compression: abnormal. RIGHT GREAT SAPHENOUS VEIN Saphenofemoral junction Valsalva reflux greater than or equal to 0.5 second. Size 0.98 cm. Proximal thigh Valsalva reflux greater than or equal to 0.5 second. Size 0.62 cm. Mid thigh Augmentation reflux greater than or equal to 0.5 second. Size 0.22 cm. Distal thigh Augmentation reflux not performed. Size 0.22 cm. Mid calf Augmentation reflux greater than or equal to 0.5 second. Size 0.46 cm. Distal calf Augmentation reflux none. Size 0.26 cm. RIGHT SMALL SAPHENOUS VEIN Proximal calf Augmentation reflux none. Size 0.17 cm. Mid calf Augmentation reflux none. Size 0.25 cm. Distal calf Augmentation reflux none. Size 0.23 cm. RIGHT [employer] Varicosity mid thigh Size 0.69 cm. Varicosity distal thigh Size 0.55 cm. Varicosity proximal calf Augmentation reflux greater than or equal to 0.5 second. Size 0.40 cm. [employer] vein mid/distal calf from a varicosity to the posterior tibial vein Augmentation reflux none. Valsalva reflux none. Size 0.44 cm. Depth 1.33 cm. LEFT SIDE Method of augmentation: manual. Common femoral vein Doppler: abnormal flow with reflux. Compression: normal. Femoral vein Doppler: normal flow. Compression: normal. Popliteal vein Doppler: normal flow. Compression: normal. Great saphenous vein Compression: normal. Small saphenous vein Compression: normal. Varicosity off the great saphenous vein Compression: abnormal. LEFT GREAT SAPHENOUS VEIN Saphenofemoral junction Valsalva reflux greater than or equal to 0.5 second. Size 0.79 cm. Proximal thigh Valsalva reflux greater than or equal to 0.5 second. Size 0.62 cm. Mid calf Augmentation reflux greater than or equal to 0.5 second. Size 0.39 cm. Distal calf Augmentation reflux greater than or equal to 0.5 second. Size 0.39 cm. LEFT SMALL SAPHENOUS VEIN Proximal calf Augmentation reflux none. Size 0.25 cm. Mid calf Augmentation reflux greater than or equal to 0.5 second. Size 0.34 cm. Distal calf Augmentation reflux greater than or equal to 0.5 second. Size 0.20 cm. LEFT [employer] Varicosity mid thigh Augmentation reflux greater than or equal to 0.5 second. Size 0.54 cm. Varicosity distal thigh Size 0.64 cm. Varicosity knee crease Augmentation reflux greater than or equal to 0.5 second. Size 0.55 cm. IMPRESSION RIGHT SIDE - DEEP VEINS Negative for acute deep vein thrombosis in vessels visualized. Positive for valvular incompetency in the common femoral vein. RIGHT SIDE - SUPERFICIAL VEINS Positive for valvular incompetency in the great saphenous vein. Varicosity arises mid thigh and rejoins the great saphenous at mid calf. Acute superficial thrombophlebitis in the varicosity off the great saphenous vein at the knee crease. (Appears acute on chronic thrombus) The great saphenous vein is small and discontinuous distal thigh to mid calf. Negative for valvular incompetency in the small saphenous vein. LEFT SIDE - DEEP VEINS Negative for acute deep vein thrombosis in vessels visualized. Positive for valvular incompetency in the common femoral vein. LEFT SIDE - SUPERFICIAL VEINS Positive for valvular incompetency in the great saphenous vein. Varicosity arises mid thigh and rejoins the great saphenous vein at mid calf. Chronic post-thrombotic change in the varicosity off the great saphenous vein at the proximal calf. The great saphenous vein is discontinuous mid thigh to mid calf. Positive for valvular incompetency in the small saphenous vein. Varicosities mid calf communicate with great saphenous vein varicosities. Technologist: Ninoska Goldstein RVT, [facility] Ordering physician: MILLY (more content not included)... [facility] CNOVon 09-30-2024 CNOV Office Visit (FPDOYL ) -------- CRYSTAL MACHUCA ([id number]) 1990 F Date Time Provider Department 09/30/24 10:40 AM AMILCAR RIVERAYL During your visit today, we recorded the following information about you: Pulse Blood pressure Weight Height 85/minute 120/80 111.1 kg 1.651 m Amilcar Rivera PA-C 10/02/2024 3:47 PM Signed Subjective Crystal Machuca is a 34-year-old female, with a history of ulcerative colitis, asthma, and hypothyroidism, presenting for evaluation of chronic cough and follow-up on gastrointestinal and endocrine issues. Crystal reports a persistent cough, which she attributes to mold exposure in her apartment. She describes the cough as producing "nasty stuff" and notes that it worsens when she is at home, particularly at night when lying down. She also reports dyspnea, which she believes is exacerbated by her underlying asthma. She has previously been on Singulair but discontinued it at some point. She is a smoker. Crystal has a history of ulcerative colitis diagnosed in childhood, with subsequent diagnoses of ischemic colitis and lymphocytic colitis. She underwent a colonoscopy between August and October 2022, during which polyps were removed, but Crystal did not follow up due to . She is currently taking Pepcid, which provides intermittent relief, and is mindful of her diet. Crystal is also under the care of endocrinology for hypothyroidism and was recently taken off her thyroid medication due to elevated thyroid levels and suspected autoimmune inflammation. She reports that the medication made her feel jittery and anxious. She is also on fluoxetine, lithium, and Seroquel, which she takes at bedtime. She denies cephalalgia or dizziness. Review of Systems Constitutional: Negative for chills, fatigue and fever. Respiratory: Positive for cough and shortness of breath. Cardiovascular: Negative for chest pain and palpitations. Gastrointestinal: Negative for diarrhea, nausea and vomiting. Musculoskeletal: Negative for back pain and myalgias. Skin: Negative for rash. Neurological: Negative for dizziness, weakness and headaches. Psychiatric/Behavioral: Negative for sleep disturbance. PAST MEDICAL HISTORY Diagnosis Date Anorexia nervosa (HCC) Asthma (HCC) Bipolar disorder (HCC) Borderline personality disorder (HCC) Generalized anxiety disorder Headache High risk sexual behavior pt stopped B/C and she is on high risk antipsychotic medication HRP (high risk ) ([facility]) substance abuse/bipolardisorder/pe rsonality disorder Menometrorrhagia Nausea and vomiting Opioid dependence ([facility]) on suboxone psych/addiction dr delarosa Patient noncompliance Polysubstance dependence ([facility]) heroin, thc, opiates , cocaine Polysubstance dependence ([facility]) Subjective visual disturbance Tobacco dependence syndrome Ulcerative colitis ([facility]) PAST SURGICAL HISTORY Procedure Laterality Date ADENOIDECTOMY HX 02/26/2013 DELIVERY ONLY Bilateral 07/16/2023 bilateral salpingectomy COLONOSCOPY SCREENING dx - ulcerative, lymphocitic - Dr. Cummings, Friend - dx at 13yrs old EGD W/O BRSH SPEC VARICIES INJ Ulcers in stomach ORAL SURGERY PROCEDURE wisdom teeth removed TONSILLECTOMY HX 02/26/2013 FAMILY HISTORY Problem Relation Age of Onset Diabetes Mother COPD Father No Known Problems Brother Lymphoma Maternal Grandmother Cancer Maternal Grandfather Colon, lung, brain, throat cancer other (heart disease [Other]) Maternal Grandfather Breast Cancer Paternal Grandmother Diabetes Paternal Grandfather Hypertension Paternal Grandfather Hyperlipidemia Paternal Grandfather Social History Tobacco Use Smoking status: Every Day Current packs/day: 0.50 Types: Cigarettes Smokeless tobacco: Never Vaping Use Vaping status: Former Substance Use Topics Alcohol use: No Drug use: Not Currently Types: Marijuana, Narcotics Comment: mjn during ; but not recently; Hx opiod use - attends AA Current Outpatient Medications Medication Sig tiZANidine (ZANAFLEX) 4 mg tablet Take 1 tablet by mouth once daily. QUEtiapine (SEROQUEL) 25 mg tablet Take 25 mg by mouth two times a day. famotidine (PEPCID) 40 mg tablet Take 1 tablet by mouth daily at bedtime. SUBLOCADE 100 mg/0.5 mL injection FLUoxetine (PROZAC) 20 mg capsule Take 1 capsule by mouth every afternoon. lithium carbonate 600 mg capsule Take 750 mg by mouth at bedtime as needed. montelukast (SINGULAIR) 10 mg tablet Take 1 tablet by mouth daily at bedtime. No current facility-administered medications for this visit. Objective BP 120/80 Pulse 85 Ht 5' 5" (1.651 m) Wt 245 lb (111.1 kg) LMP 11/03/2023 (Exact Date) SpO2 98% BMI 40.77 kg/m? Physical Exam GENERAL: NAD, alert and oriented. SKIN: Unremarkable, no rash or skin lesions. HEAD: Normocephalic. EYES: PERRLA, EOMI, conjunctiva (more content not included)... Normal [facility] CNOVon 09-22-2024 [facility] Office Visit (VASSWS ) -------- CRYSTAL MACHUCA ([id number]) 1990 F Date Time Provider Department 09/22/24 9:30 AM JANET RODAS During your visit today, we recorded the following information about you: Pulse Blood pressure 74/minute 122/73 Janet Rodas DO 10/06/2024 10:14 AM [facility] [place] DEPARTMENT OF VASCULAR SURGERY OUTPATIENT VISIT DATE September 22, 2024 OUTPATIENT VISIT TYPE CONSULTATION SERVICE DATE: 09/22/2024 SERVICE TIME: 9:47 AM PRIMARY CARE PHYSICIAN: Amilcar Rivera PA-C REFERRING PROVIDER: Amilcar Rivera [address] [facility] [address] [facility] [id number] Consult requested for an opinion regarding the evaluation and treatment of the above. My final impression and recommendations will be communicated back to the requesting physician by way of the shared medical record or letter via US mail. CHIEF COMPLAINT: Patient presents with: New Patient History of Present Illness: Patient is a 34 year old White female presenting for consultation, evaluation and possible treatment of varicose veins.bilateral tender lumps which started on right leg and now present on left. She has a history of phlebitis after delivery of her last child. She does noticed bilateral lower extremity swelling especially at the ankles at the end of day. Predisposing factors included not significant. No specific history of injury or prior problems. Relieving factors include support hose, elevation of legs, and reduced activity with mild improvement in symptoms. Patient denies DVT, phlebitis, and treatment with blood thinners. PAIN ASSESSMENT: PAIN EVALUATION No data found in the last 1 encounters. Obstetric History T3 L3 SAB1 IAB1 Ectopic0 Multiple0 Live Births3 Name of Baby 1: Not recorded Date: Not recorded GA: Not recorded Type: Not recorded Apgar1: Not recorded Apgar5: Not recorded Living: Not recorded Name of Baby 2: Not recorded Date: Not recorded GA: Not recorded Type: Not recorded Apgar1: Not recorded Apgar5: Not recorded Living: Not recorded Name of Baby 3: Finesse Date: 05/30/15 GA: 39w4d Type: Vaginal, Spontaneous Apgar1: Not recorded Apgar5: Not recorded Living: Living Name of Baby 4: Emiliano Date: 11/27/19 GA: Not recorded Type: Vaginal, Spontaneous Apgar1: Not recorded Apgar5: Not recorded Living: Living Name of Baby 5: Leonardo Date: 07/16/23 GA: 39w1d Type: , Low Transverse Apgar1: Not recorded Apgar5: Not recorded Living: Living Duration of Symptoms: Progressive PAST MEDICAL HISTORY Diagnosis Date Anorexia nervosa (HCC) Asthma (HCC) Bipolar disorder (HCC) Borderline personality disorder (HCC) Generalized anxiety disorder Headache High risk sexual behavior pt stopped B/C and she is on high risk antipsychotic medication HRP (high risk ) ([facility]) substance abuse/bipolardisorder/pe rsonality disorder Menometrorrhagia Nausea and vomiting Opioid dependence (HCC) on suboxone psych/addiction dr delarosa Patient noncompliance Polysubstance dependence ([facility]) heroin, thc, opiates , cocaine Polysubstance dependence (HCC) Subjective visual disturbance Tobacco dependence syndrome PAST SURGICAL HISTORY Procedure Laterality Date ADENOIDECTOMY HX 02/26/2013 DELIVERY ONLY Bilateral 07/16/2023 bilateral salpingectomy ORAL SURGERY PROCEDURE wisdom teeth removed TONSILLECTOMY HX 02/26/2013 SOCIAL HISTORY: Social History Tobacco Use Smoking status: Every Day Current packs/day: 0.50 Types: Cigarettes Smokeless tobacco: Never Vaping Use Vaping status: Former Substance Use Topics Alcohol use: No Drug use: Not Currently Types: Marijuana, Narcotics Comment: mjn during ; but not recently; Hx opiod use - attends AA FAMILY HISTORY Problem Relation Age of Onset Diabetes Mother COPD Father No Known Problems Brother Lymphoma Maternal Grandmother Cancer Maternal Grandfather Colon, lung, brain, throat cancer other (heart disease [Other]) Maternal Grandfather Breast Cancer Paternal Grandmother Diabetes Paternal Grandfather Hypertension Paternal Grandfather Hyperlipidemia Paternal Grandfather MEDICATIONS: tiZANidine (ZANAFLEX) 4 mg tablet Take 1 tablet by mouth once daily. QUEtiapine (SEROQUEL) 25 mg tablet Take 25 mg by mouth two times a day. levothyroxine (SYNTHROID) 25 mcg tablet Take 1 tablet by mouth daily before breakfast. famotidine (PEPCID) 40 mg tablet Take 1 tablet by mouth daily at bedtime. SUBLOCADE 100 mg/0.5 mL injection FLUoxetine (PROZAC) 20 mg capsule Take 1 capsule by mouth every afternoon. lithium carbonate 600 mg capsule Take 600 mg by mouth at bedtime as needed. ALLERGIES: ALLERGIES Allergen Reactions Augmentin [Amoxicil* Hives Monroe [Hydrocodone-* Vomiting Penicillin Hives Tramadol Vomiting REVIEW of SYSTEMS: Constitutional: No (more content not included)... Normal [facility] US ABD RIGHT UPPER QUADRANTo n 09-11-2024 US ABD RIGHT UPPER QUADRANT * * *Final Report* * * DATE OF EXAM: Sep 11 2024 10:47AM [facility] 1032 - US ABD RIGHT UPPER QUADRANT / PROCEDURE REASON: RUQ pain * * * * Physician Interpretation * * * * EXAMINATION: RIGHT UPPER QUADRANT ULTRASOUND CLINICAL HISTORY: Right upper quadrant pain, nausea vomiting and diarrhea. TECHNIQUE: Sonography of the right upper quadrant was performed. Images were obtained and stored in a permanent archive. MQ: URUQ_2 COMPARISON: None. RESULT: Pancreas: Normal sonographic appearance. Portions obscured: tail Liver: Echotexture: Normal, homogeneous. Echogenicity: Mildly increased. Surface contour: Smooth Lesions: None. Biliary: No intrahepatic biliary duct dilation. CBD: 0.5 cm at the hilum. Gallbladder: Normal caliber -Contents: No cholelithiasis -Wall: Normal -Other: No pericholecystic fluid. Technologist reports a negative sonographic Roberson's sign. Right Kidney: No hydronephrosis. Ascites: None. IMPRESSION: Mild hepatic steatosis. No cholelithiasis or biliary duct dilation. [employer]: MARY Transcribe Date/Time: Sep 13 2024 9:50A Dictated by : ALEX PARSONS MD This examination was interpreted and the report reviewed and electronically signed by: ALEX PARSONS MD on Sep 13 2024 9:52AM EST [id number] Normal [facility] CNOVon 09-08-2024 CNOV Office Visit (ORMMNC ) -------- CRYSTAL MACHUCA ([id number]) 1990 F Date Time Provider Department 09/08/24 11:30 AM MIKHAIL MCKEON [facility] During your visit today, we recorded the following information about you: Weight Height 109.3 kg 1.651 m Sylvia Bansal MA 09/08/2024 12:03 PM Signed 34 y/o female patient here today to follow up with neck pain. MRI cervical completed. Insurance denied the MRI lumbar. Mikhail Mckeon MD 09/08/2024 12:03 PM Signed Crystal Machuca is a 34 year old presenting with Follow Up, Pain, and Results - Mri of the Neck HPI: Patient is here for follow-up of her neck and back pain. The neck is slightly improved. She still does get tightness and pain when she is active. She did have her MRI of the cervical spine and is here to go over the results. Her low back is actually worsening and continues to give her pain and tingling into the left leg sometimes to the right. She feels very unsteady and weak on the left side with ambulating. Her left leg gets weaker when she is ambulating. There is no loss of bowel or bladder control. Review of Systems Constitutional: Negative for chills and fever. Musculoskeletal: Positive for back pain (Low back pain left worse than right.) and neck pain. Neurological: Positive for tingling (Bilateral lower extremity), sensory change (Left lower extremity) and focal weakness (Lower extremity). PAST MEDICAL HISTORY Diagnosis Date Anorexia nervosa (HCC) Asthma (HCC) Bipolar disorder (HCC) Borderline personality disorder (HCC) Generalized anxiety disorder Headache High risk sexual behavior pt stopped B/C and she is on high risk antipsychotic medication HRP (high risk ) ([facility]) substance abuse/bipolardisorder/pe rsonality disorder Menometrorrhagia Nausea and vomiting Opioid dependence ([facility]) on suboxone psych/addiction dr delarosa Patient noncompliance Polysubstance dependence ([facility]) heroin, thc, opiates , cocaine Polysubstance dependence ([facility]) Subjective visual disturbance Tobacco dependence syndrome FAMILY HISTORY Problem Relation Age of Onset Diabetes Mother COPD Father No Known Problems Brother Lymphoma Maternal Grandmother Cancer Maternal Grandfather Colon, lung, brain, throat cancer other (heart disease [Other]) Maternal Grandfather Breast Cancer Paternal Grandmother Diabetes Paternal Grandfather Hypertension Paternal Grandfather Hyperlipidemia Paternal Grandfather Tobacco Use: High Risk (09/08/2024) Patient History Smoking Tobacco Use: Every Day Smokeless Tobacco Use: Never Passive Exposure: Not on file Alcohol Use: No Current Outpatient Medications Medication Sig QUEtiapine (SEROQUEL) 25 mg tablet Take 25 mg by mouth two times a day. levothyroxine (SYNTHROID) 25 mcg tablet Take 1 tablet by mouth daily before breakfast. famotidine (PEPCID) 40 mg tablet Take 1 tablet by mouth daily at bedtime. SUBLOCADE 100 mg/0.5 mL injection cyclobenzaprine (FLEXERIL) 10 mg tablet Take 1 tablet by mouth three times a day as needed for muscle spasm or pain. FLUoxetine (PROZAC) 20 mg capsule Take 1 capsule by mouth every afternoon. lithium carbonate 600 mg capsule Take 600 mg by mouth at bedtime as needed. No current facility-administered medications for this visit. ALLERGIES Allergen Reactions Augmentin [Amoxicil* Hives [place] [Hydrocodone-* Vomiting Penicillin Hives Tramadol Vomiting Ht 5' 5" (1.65m) Wt 241 lb (109.3kg) LMP 11/03/2023 BMI 40.10 kg/(m2). Physical Exam Constitutional: General: She is not in acute distress. Musculoskeletal: Comments: Still has some mild paracervical soft tissue tenderness no midline tenderness. Some slight decreased flexion extension. Her MRI results showed just some slight cervical disc findings but no stenosis or compromise of the canals. Patient has very limited lumbar range of motion. She can flex about 45 degrees forward but has very limited extension. She is tender paralumbar soft tissue left more than the right. On straight leg raise she can only raise the left leg to about 30 degrees now which is worse than previous visit. Pain radiates down the left leg to the foot. She does have a positive bowstring sign on the left. Some slight weakness with great toe extension on the left compared to the right. Straight leg raise on the right leg cause some pain at 45 degrees but no radiculopathy. Neurological: Mental Status: She is alert. Procedures ASSESSMENT/PLAN: 1. Left-sided low back pain with left-sided sciatica, unspecified chronicity - ICD9: 724.3, ICD10: M54.42 (primary diagnosis) 2. Neck pain on left side - ICD9: 723.1, ICD10: M54.2 Patient's neck pain has improved slightly. Her MRI did not show any severe abnormalities just some mild changes. At this time she is to continue to therapy and symptomatic treatment. Follow-up as needed fo (more content not included)... [facility] Telephone (JAVAN) -------- CRYSTAL MACHUCA ([id number]) 1990 F Date Time Provider Department 09/04/24 [facility] PRICE During your visit today, we recorded the following information about you: Vonda Almendarez 09/04/2024 12:10 PM Signed Called Pt to schedule from referral - Pt wanted to be seen in [place]. Phone number for [place] jin (Dr. Rodas) was provided, as the [place] office schedules for the [place] location. Allergies As of Date: 09/04/2024 Noted Allergy Reaction AUGMENTIN (AMOXICILLIN-POT CLAVUL*04/01/2015 4 - Hives NORCO (HYDROCODONE-ACETAMINOPH EN) 04/01/2015 11 - Vomiting PENICILLIN 04/01/2015 4 - Hives TRAMADOL 04/01/2015 11 - Vomiting Date Reviewed: 08/26/2024 Reviewed by: Ana Loaiza LPN - Fully Assessed Reason for Visit: Appointment [186] Cmt: Appointment Prescriptions as of 09/04/2024 - QUEtiapine (SEROQUEL) 25 mg tablet Take 25 mg by mouth two times a day. - levothyroxine (SYNTHROID) 25 mcg tablet Take 1 tablet by mouth daily before breakfast. - famotidine (PEPCID) 40 mg tablet Take 1 tablet by mouth daily at bedtime. - SUBLOCADE 100 mg/0.5 mL injection - cyclobenzaprine (FLEXERIL) 10 mg tablet Take 1 tablet by mouth three times a day as needed for muscle spasm or pain. - FLUoxetine (PROZAC) 20 mg capsule Take 1 capsule by mouth every afternoon. - lithium carbonate 600 mg capsule Take 600 mg by mouth at bedtime as needed. Problem List As Of Date 09/04/2024 Noted Resolved HRP (high risk ) [O09.90] 09/02/2023 Bipolar disorder (HCC) [F31.9] Patient noncompliance [Z91.199] 12/10/2022 Polysubstance dependence (HCC) [F19.20] 12/10/2022 Menometrorrhagia [N92.1] 12/10/2022 Vaginal bleeding affecting early [O20*09/14/2021 12/10/2022 complicated by subutex maintenance, a*12/10/2022 09/02/2023 Tobacco use disorder [F17.200] 01/07/2023 History of posttraumatic stress disorder (PTSD)*04/01/2023 [employer] Consult 06/12 [O99.891] 04/02/2023 09/02/2023 Anemia complicating , third trimester *05/03/2023 09/02/2023 Polyhydramnios in third trimester [O40.3XX0] 06/26/2023 09/02/2023 Supervision of other high risk pregnancies, thi*07/09/2023 09/02/2023 History of section [Z98.891] 09/02/2023 History of opioid abuse (HCC) [F11.11] 09/02/2023 Obesity, Class I, BMI 30-34.9 [E66.811] 04/14/2024 Obesity, Class II, BMI 35-39.9 [E66.812] 05/14/2024 Left-sided low back pain with left-sided sciati*05/26/2024 Neck pain on left side [M54.2] 05/26/2024 Cervical radiculopathy [M54.12] 05/26/2024 Encounter Status:Closed by VONDA ALMENDAREZ on 09/04/24 [facility] CBC W Auto Differential pane l (Bld)on 09-02-2024 Basophils (Bld) [#/Vol] 0.04 10*3/uL Normal <0.11 [facility] Comment on above: Order Comment: Speci men Type: BLOOD SPECIMENOrdering Facility: [facility] Address: [address] [place] [address] Performed By: #### 5 7021-8 ####[facility] [id number] [place] [address] [place] Basophils/100 WBC (Bld) 0.5 % Normal C [facility] Comment on above: Order Comment: Speci men Type: BLOOD SPECIMENOrdering Facility: [facility] Address: [address] [place] [address] Performed By: #### 5 7021-8 ####[facility] [id number] [place] [address] [place] Differential cell count method Nom (Bld) Auto Normal [facility] Comment on above: Order Comment: Speci men Type: BLOOD SPECIMENOrdering Facility: [facility] Address: [address] [place] [address] Performed By: #### 5 7021-8 ####[facility] MILLWNCLIA [id number] [place] [address] [place] Eosinophils (Bld) [#/Vol] 0.44 10*3/uL Normal <0.46 [facility] Comment on above: Order Comment: Speci men Type: BLOOD SPECIMENOrdering Facility: [facility] Address: [address] [place] [address] Performed By: #### 5 7021-8 ####[facility]ITALWLALOLIA [id number] [place] [address] [place] Eosinophils/100 WBC (Bld) 5.0 % Normal [facility] Comment on above: Order Comment: Speci men Type: BLOOD SPECIMENOrdering Facility: [facility] Address: [address] [place] [address] Performed By: #### 5 7021-8 ####[facility] [id number] [place] [address] [place] Erythrocyte distribution width (RBC) [Ratio] 14.6 % Normal 11.5-15.0 [facility] Comment on above: Order Comment: Speci men Type: BLOOD SPECIMENOrdering Facility: [facility] Address: [address] [place] [address] Performed By: #### 5 7021-8 ####[facility] [id number] [place] [address] [place] Hematocrit (Bld) [Volume fraction] 36.3 % Normal 36.0-46.0 [facility] Comment on above: Order Comment: Speci men Type: BLOOD SPECIMENOrdering Facility: [facility] Address: [address] [place] [address] Performed By: #### 5 7021-8 ####[facility] [id number] [place] [address] [place] Hemoglobin (Bld) [Mass/Vol] 11.6 g/dL Normal 11.5-15.5 [facility] Comment on above: Order Comment: Speci men Type: BLOOD SPECIMENOrdering Facility: [facility] Address: [address] [place] [address] Performed By: #### 5 7021-8 ####[facility] [id number] [place] [address] [place] Immature granulocytes (Bld) [#/Vol] 10*3/uL Normal <0.10 [facility] Comment on above: Order Comment: Speci men Type: BLOOD SPECIMENOrdering Facility: [facility] Address: [address] [place] [address] Performed By: #### 5 7021-8 ####[facility] [id number] [place] [address] [place] Immature granulocytes/100 WBC (Bld) 0.2 % Normal [facility] Comment on above: Order Comment: Speci men Type: BLOOD SPECIMENOrdering Facility: [facility] Address: [address] [place] [address] Performed By: #### 5 7021-8 ####[facility] [id number] [place] [address] [place] Lymphocytes (Bld) [#/Vol] 2.98 10*3/uL Normal 1.00-4.00 [facility] Comment on above: Order Comment: Speci men Type: BLOOD SPECIMENOrdering Facility: [facility] Address: [address] [place] [address] Performed By: #### 5 7021-8 ####[facility] [id number] [place] [address] [place] Lymphocytes/100 WBC (Bld) 34.1 % Normal [facility] Comment on above: Order Comment: Speci men Type: BLOOD SPECIMENOrdering Facility: [facility] Address: [address] [place] [address] Performed By: #### 5 7021-8 ####[facility] GUILLERMOOLAYINKA [id number] [address] MCH (RBC) [Entitic mass] 28.7 pg Normal 26.0-34.0 [facility] Comment on above: Order Comment: Speci men Type: BLOOD SPECIMENOrdering Facility: [facility] Address: [address] [place] [address] Performed By: #### 5 7021-8 ####[facility] [id number] [place] [address] [place] MCHC (RBC) [Mass/Vol] 32.0 g/dL Normal 30.5-36.0 [facility] Comment on above: Order Comment: Speci men Type: BLOOD SPECIMENOrdering Facility: [facility] Address: [address] [place] [address] Performed By: #### 5 7021-8 ####[facility] [id number] [place] [address] [place] MCV (RBC) [Entitic vol] 89.9 fL Normal 80.0-100.0 C [facility] Comment on above: Order Comment: Speci men Type: BLOOD SPECIMENOrdering Facility: [facility] Address: [address] [place] [address] Performed By: #### 5 7021-8 ####[facility] [id number] [place] [address] [place] [facility] [place] Monocytes (Bld) [#/Vol] 0.58 10*3/uL Normal <0.87 [facility] Comment on above: Order Comment: Speci men Type: BLOOD SPECIMENOrdering Facility: [facility] Address: [address] [place] [address] Performed By: #### 5 7021-8 ####[facility] GUILLERMOWNCLIA [id number] [place] [address] [place] Monocytes/100 WBC (Bld) 6.6 % Normal [facility] Comment on above: Order Comment: Speci men Type: BLOOD SPECIMENOrdering Facility: [facility] Address: [address] [place] [address] Performed By: #### 5 7021-8 ####[facility]ITALL[facility] [id number] [place] [address] [place] Neutrophils (Bld) [#/Vol] 4.67 10*3/uL Normal 1.45-7.50 [facility] Comment on above: Order Comment: Speci men Type: BLOOD SPECIMENOrdering Facility: [facility] Address: [address] [place] [address] Performed By: #### 5 7021-8 ####[facility] [id number] [place] [address] [place] Neutrophils/100 WBC (Bld) 53.6 % Normal [facility] Comment on above: Order Comment: Speci men Type: BLOOD SPECIMENOrdering Facility: [facility] Address: [address] [place] [address] Performed By: #### 5 7021-8 ####[facility]ALL[facility] [id number] [place] [address] [place] Nucleated RBC (Bld) [#/Vol] 10*3/uL Normal <0.01 [facility] Comment on above: Order Comment: Speci men Type: BLOOD SPECIMENOrdering Facility: [facility] Address: [address] [place] [address] Performed By: #### 5 7021-8 ####[facility]CL[facility] [id number] [place] [address] [place] Nucleated RBC/100 WBC (Bld) [Ratio] 0.0 /100 WBC Normal [facility] Comment on above: Order Comment: Speci men Type: BLOOD SPECIMENOrdering Facility: [facility] Address: [address] [place] [address] Performed By: #### 5 7021-8 ####[facility] [id number] [place] [address] [place] Platelet mean volume (Bld) [Entitic vol] 10.9 fL Normal 9.0-12.7 [facility] Comment on above: Order Comment: Speci men Type: BLOOD SPECIMENOrdering Facility: [facility] Address: [address] [place] [address] Performed By: #### 5 7021-8 ####[facility] [id number] [place] [address] [place] Platelets (Bld) [#/Vol] 251 10*3/uL Normal 150-400 [facility] Comment on above: Order Comment: Speci men Type: BLOOD SPECIMENOrdering Facility: [facility] Address: [address] [place] [address] Performed By: #### 5 7021-8 ####[facility] [id number] [place] [address] [place] RBC (Bld) [#/Vol] 4.04 10*6/uL Normal 3.90-5.20 [facility] Comment on above: Order Comment: Speci men Type: BLOOD SPECIMENOrdering Facility: [facility] Address: [address] [place] [address] Performed By: #### 5 7021-8 ####[facility]ITALNCLIA [id number] [place] [address] [place] WBC (Bld) [#/Vol] 8.73 10*3/uL Normal 3.70-11.00 [facility] Comment on above: Order Comment: Speci men Type: BLOOD SPECIMENOrdering Facility: [facility] Address: [address] [place] [address] Performed By: #### 5 7021-8 ####[facility] GUILLERMOTOWNCLIA [id number] [place] [address] [place] CK SerPl-cCncon 09-02-2024 CK [Catalytic activity/Vol] 123 U/L Normal 42-196 [facility] Comment on above: Order Comment: Speci men Type: BLOOD SPECIMENOrdering Facility: [facility] Address: [address] [place] [address] Performed By: #### 2 157-6, 3040-3, 2731-8 ####[facility] LABCLIA [id number] [place] [address] [place] CK [Catalytic activity/Vol]o n 09-02-2024 Interpretation and review of laboratory results Normal [facility] CREATINE KINASE/CKon 025 CK [Catalytic activity/Vol] 123 U/L 42 - 196 U/L [facility] Comprehensive metabolic 2000 panelon 09-02-2024 Albumin [Mass/Vol] 4.1 g/dL Normal 3.9-4.9 [facility] Comment on above: Order Comment: Speci men Type: BLOOD SPECIMENOrdering Facility: [facility] Address: [address] [place] [address] Performed By: #### 2 4323-8, 07186-5, 2531-0 ####[facility]ITALWNCLIA [id number] [place] [address] [place] ALP [Catalytic activity/Vol] 67 U/L Normal 34-123 [facility] Comment on above: Order Comment: Speci men Type: BLOOD SPECIMENOrdering Facility: [facility] Address: [address] [place] [address] Performed By: #### 2 4323-8, 91644-2, 2-0 ####[facility]OSPITALNCKARINAA [id number] [place] [address] [place] ALT [Catalytic activity/Vol] 11 U/L Normal 7-38 [facility] Comment on above: Order Comment: Speci men Type: BLOOD SPECIMENOrdering Facility: [facility] Address: [address] [place] [address] Performed By: #### 2 4323-8, 71756-0, 2-0 ####[facility] MILLTOWNCLIA [id number] [place] [address] [place] Anion gap [Moles/Vol] 13 mmol/L Normal 8-15 [facility] Comment on above: Order Comment: Speci men Type: BLOOD SPECIMENOrdering Facility: [facility] Address: [address] [place] [address] Performed By: #### 2 4323-8, , 2-0 ####[facility]ITALNCLIA [id number] [place] [address] [place] AST [Catalytic activity/Vol] 16 U/L Normal 13-35 [facility] Comment on above: Order Comment: Speci men Type: BLOOD SPECIMENOrdering Facility: [facility] Address: [address] [place] [address] Performed By: #### 2 4323-8, 61100-1, 2-0 ####[facility] MILLTOWNCLIA [id number] [place] [address] [place] Bilirubin [Mass/Vol] 0.2 mg/dL Normal 0.2-1.3 [facility] Comment on above: Order Comment: Speci men Type: BLOOD SPECIMENOrdering Facility: [facility] Address: [address] [place] [address] Performed By: #### 2 4323-8, 39242-5, 2-0 ####[facility] MILLTOWNCLIA [id number] [place] [address] [place] Calcium [Mass/Vol] 9.6 mg/dL Normal 8.5-10.2 [facility] Comment on above: Order Comment: Speci men Type: BLOOD SPECIMENOrdering Facility: [facility] Address: [address] [place] [address] Performed By: #### 2 4323-8, , 2-0 ####[facility] GUILLERMOMARYAWLALOLIA [id number] [place] [address] [place] Chloride [Moles/Vol] 102 mmol/L Normal 98-107 [facility] Comment on above: Order Comment: Speci men Type: BLOOD SPECIMENOrdering Facility: [facility] Address: [address] [place] [address] Performed By: #### 2 4323-8, , 2531-0 ####[facility] MILLWLALOLIA [id number] [place] [address] [place] CO2 [Moles/Vol] 21 mmol/L Low 22-30 [facility] Comment on above: Order Comment: Speci men Type: BLOOD SPECIMENOrdering Facility: [facility] Address: [address] [place] [address] Performed By: #### 2 4323-8, , 2-0 ####[facility] MILLWNCLIA [id number] [place] [address] [place] Creatinine [Mass/Vol] 0.62 mg/dL Normal 0.58-0.96 [facility] Comment on above: Order Comment: Speci men Type: BLOOD SPECIMENOrdering Facility: [facility] Address: [address] [place] [address] Performed By: #### 2 4323-8, 95833-6, 2-0 ####[facility] MILLTOWLALOLIA [id number] [place] [address] [place] Creatinine and Glomerular filtration rate.predicted panel (S/P/Bld) 122 mL/min/1.73m??? Normal >=60 [facility] Comment on above: Order Comment: Nusrat morgan Type: BLOOD SPECIMENOrdering Facility: [facility] Address: [address] [place] [address] Result Comment: Afia mated Glomerular Filtration Rate (eGFR) is calculated using the 2020 CKD-EPI creatinine equation. This equation utilizes serum creatinine, sex, and age as parameters. The creatinine assay has traceable calibration to isotope dilution-mass spectrometry. Refer to KDIGO guidelines for clinical interpretation. In patients with unstable renal function, e.g. those with acute kidney injury, the eGFR may not accurately reflect actual GFR. Performed By: #### 2 4323-8, 94470-3, 2-0 ####[facility] [id number] [place] [address] [place] Glucose [Mass/Vol] 112 mg/dL High 74-99 [facility] Comment on above: Order Comment: Nusrat morgan Type: BLOOD SPECIMENOrdering Facility: [facility] Address: [address] [place] [address] Result Comment: The [place] Diabetes Association (ADA) provides guidance for cutoff values for fasting glucose and random glucose. The ADA defines fasting as no caloric intake for at least 8 hours. Fasting plasma glucose results between 100 to 125 mg/dL indicate increased risk for diabetes (prediabetes). Fasting plasma glucose results greater than or equal to 126 mg/dL meet the criteria for diagnosis of diabetes. In the absence of unequivocal hyperglycemia, results should be confirmed by repeat testing. In a patient with classic symptoms of hyperglycemia or hyperglycemic crisis, random plasma glucose results greater than or equal to 200 mg/dL meet the criteria for diagnosis of diabetes. Reference: Standards of Medical Care in Diabetes 2016, [place] [employer] Association. Diabetes Care. 2016.39(Suppl 1). Performed By: #### 2 4323-8, 26895-9, 2532-0 ####[facility]ITALNCLI [id number] [place] [address] [place] Potassium [Moles/Vol] 4.1 mmol/L Normal 3.7-5.1 [facility] Comment on above: Order Comment: Speci men Type: BLOOD SPECIMENOrdering Facility: [facility] Address: [address] [place] [address] Performed By: #### 2 4323-8, 06493-1, 2-0 ####[facility] MILLTOWNCLIA [id number] [place] [address] [place] Protein [Mass/Vol] 6.6 g/dL Normal 6.3-8.0 [facility] Comment on above: Order Comment: Speci men Type: BLOOD SPECIMENOrdering Facility: [facility] Address: [address] [place] [address] Performed By: #### 2 4323-8, , 2-0 ####[facility] MILLTOWLALOLIA [id number] [place] [address] [place] Sodium [Moles/Vol] 136 mmol/L Normal 136-144 [facility] Comment on above: Order Comment: Speci men Type: BLOOD SPECIMENOrdering Facility: [facility] Address: [address] [place] [address] Performed By: #### 2 4323-8, , 2531-0 ####[facility] MILLTOWNCLIA [id number] [place] [address] [place] Urea nitrogen [Mass/Vol] 11 mg/dL Normal 7-21 [facility] Comment on above: Order Comment: Speci men Type: BLOOD SPECIMENOrdering Facility: [facility] Address: [address] [place] [address] Performed By: #### 2 4323-8, 73405-9, 2532-0 ####[facility] MILLTOWNCLIA [id number] [place] [address] [place] LACTATE DEHYDROGENASEon 06- LDH [Catalytic activity/Vol] 185 U/L 135 - 214 U/L [facility] LDH SerPl-cCncon 09-02-2024 LDH [Catalytic activity/Vol] 185 U/L Normal 135-214 [facility] Comment on above: Order Comment: Speci men Type: BLOOD SPECIMENOrdering Facility: [facility] Address: [address] [place] [address] Performed By: #### 2 4323-8, 99648-4, 2532-0 ####[facility] YOUNGSTOWNNCLIA [id number] [place] [address] [place] Lipase SerPl-cCncon 09-03-19 25 Lipase [Catalytic activity/Vol] 20 U/L Normal 16-61 [facility] Comment on above: Order Comment: Speci men Type: BLOOD SPECIMENOrdering Facility: [facility] Address: [address] [place] [address] Performed By: #### 2 157-6, 3040-3, 2731-8 ####[facility] LABCLIA [id number] [place] [address] [place] MAGNESIUMon 09-02-2024 Magnesium [Mass/Vol] 1.7 mg/dL 1.7 - 2 .3 mg/dL [facility] MR Cervical spine WO contras ton 09-02-2024 IMPRESSION: Patent cervical canal and foramina. COUNTING REFERENCE: Superior cervical disc taken as C2-3. Structural anomalies: None. [employer]: MARY Transcribe Date/Time: Sep 02 2024 10:36A Dictated by : BREEZY ORTEGA MD This examination was interpreted and the report reviewed and electronically signed by: BREEZY ORTEGA MD on Sep 02 2024 10:37AM [facility] DIVISION OF RADIOLOGY * * *Final Report* * * DATE OF EXAM: Sep 02 2024 9:39AM [facility] 0297 - MRI CERVICAL SPINE WO IVCON / PROCEDURE REASON: Spinal stenosis of cervical region * * * * Physician Interpretation * * * * COMPARISON: None. HISTORY: Cervical spinal stenosis. TECHNIQUE: MRI cervical spine none contrast. MQ: [id number] RESULT: MRI CERVICAL SPINE: Acute abnormality: None. Mild straightening of the cervical spine. Slight decrease in disc signal indicating disc desiccation without significant degeneration or there are few bulges identified. Central canal is patent and patulous. Normal alignment, vertebral height, marrow signal, soft tissues, central canal, thecal sac, spinal cord signal/caliber & posterior fossa. No fracture/dislocation/sub luxation. C2 -- 3: Patent canal and foramina. C3 -- 4: Patent canal and foramina. C4 -- 5: Patent canal and foramina. C5 -- 6: Patent canal and foramina. C6 -- 7: Patent canal and foramina. C7 -- T1: Patent canal and foramina. DIVISION OF RADIOLOGY Provider, [facility] - 09/02/2024 * * *Final Report* * * DATE OF EXAM: Sep 02 2024 9:39AM [facility] 0[facility] - MRI CERVICAL SPINE WO IVCON / PROCEDURE REASON: Spinal stenosis of cervical region * * * * Physician Interpretation * * * * COMPARISON: None. HISTORY: Cervical spinal stenosis. TECHNIQUE: MRI cervical spine none contrast. MQ: [id number]_3 RESULT: MRI CERVICAL SPINE: Acute abnormality: None. Mild straightening of the cervical spine. Slight decrease in disc signal indicating disc desiccation without significant degeneration or there are few bulges identified. Central canal is patent and patulous. Normal alignment, vertebral height, marrow signal, soft tissues, central canal, thecal sac, spinal cord signal/caliber & posterior fossa. No fracture/dislocation/sub luxation. C2 -- 3: Patent canal and foramina. C3 -- 4: Patent canal and foramina. C4 -- 5: Patent canal and foramina. C5 -- 6: Patent canal and foramina. C6 -- 7: Patent canal and foramina. C7 -- T1: Patent canal and foramina. IMPRESSION IMPRESSION: Patent cervical canal and foramina. COUNTING REFERENCE: Superior cervical disc taken as C2-3. Structural anomalies: None. [employer]: MARY Transcribe Date/Time: Sep 02 2024 10:36A Dictated by : BREEZY ORTEGA MD This examination was interpreted and the report reviewed and electronically signed by: BREEZY ORTEGA MD on Sep 02 2024 10:37AM EST [facility] Radiology Study observation (narrative) Luna garcia [facility] MR Cervical spine WO contras tOrdered By: Ccf Provider on 09-02-2024 [facility] MRI CERVICAL SPINE WO IVCONo n 09-02-2024 MRI CERVICAL SPINE WO IVCON * * *Final Report* * * DATE OF EXAM: Sep 02 2024 9:39AM [facility] 0297 - MRI CERVICAL SPINE WO IVCON / PROCEDURE REASON: Spinal stenosis of cervical region * * * * Physician Interpretation * * * * COMPARISON: None. HISTORY: Cervical spinal stenosis. TECHNIQUE: MRI cervical spine none contrast. MQ: [id number] RESULT: MRI CERVICAL SPINE: Acute abnormality: None. Mild straightening of the cervical spine. Slight decrease in disc signal indicating disc desiccation without significant degeneration or there are few bulges identified. Central canal is patent and patulous. Normal alignment, vertebral height, marrow signal, soft tissues, central canal, thecal sac, spinal cord signal/caliber and posterior fossa. No fracture/dislocation/sub luxation. C2 -- 3: Patent canal and foramina. C3 -- 4: Patent canal and foramina. C4 -- 5: Patent canal and foramina. C5 -- 6: Patent canal and foramina. C6 -- 7: Patent canal and foramina. C7 -- T1: Patent canal and foramina. IMPRESSION: Patent cervical canal and foramina. COUNTING REFERENCE: Superior cervical disc taken as C2-3. Structural anomalies: None. [employer]: [facility] Transcribe Date/Time: Sep 02 2024 10:36A Dictated by : BREEZY ORTEGA MD This examination was interpreted and the report reviewed and electronically signed by: BREEZY ORTEGA MD on Sep 02 2024 10:37AM EST [id number] Normal [facility] Magnesium SerPl-mCncon 09-02 Magnesium [Mass/Vol] 1.7 mg/dL Normal 1.7-2.3 [facility] Comment on above: Order Comment: Speci men Type: BLOOD SPECIMENOrdering Facility: [facility] Address: [address] [place] [address] [place] [address] Performed By: #### 2 4323-8, 50398-6, 2532-0 ####[facility]ENIN[facility]ACON[facility] OKLAHOMA CITYLIA [id number] [place] [address] [facility] No Panel Informationon 09-02 Interpretation and review of laboratory results Normal [facility] PTH-Intact SerPl-mCncon - Parathyrin.intact [Mass/Vol] 38 pg/mL Normal 15-65 [facility] Comment on above: Order Comment: Speci men Type: BLOOD SPECIMENOrdering Facility: [facility] Address: [address] [place], [place] [address] Performed By: #### 2 157-6, 3040-3, 2731-8 ####[facility] LABCLIA [id number] [address] [address] [facility] CNOVon 08-26-2024 CNOV Office Visit (FPDOYL ) -------- CRYSTAL MACHUCA ([id number]) 1990 F Date Time Provider Department 08/26/24 10:40 AM AMILCAR RIVERA FPDOYL During your visit today, we recorded the following information about you: Temperature Pulse Blood pressure Weight 98.3 degrees 89/minute 118/80 109.3 kg Height 1.651 m Amilcar Rivera PA-C 09/01/2024 8:48 PM Signed Subjective Crystal Machuca is a 34-year-old female presenting with concerns about elevated thyroid levels and associated symptoms. Crystal reports that approximately one year ago, her psychiatrist prescribed Synthroid 50 mcg to address fatigue and weight gain, despite her thyroid levels being within the normal range at that time. She discontinued the medication after a few months due to a significant drop in her thyroid levels and lack of improvement in her symptoms. Recent lab results indicate a marked elevation in her thyroid levels. She reports persistent fatigue and weight gain, despite a decreased appetite and increased physical activity. She also experiences frequent sensations of being overheated and diaphoretic, even in cooler temperatures. She denies any palpitations, dysphagia, or cephalalgia. Additionally, she reports severe abdominal pain that begins in the RUQ and radiates to her entire abdomen and back, accompanied by nausea and diaphoresis. These episodes occur sporadically and are exacerbated by the consumption of fried or greasy foods. She also experiences irregular bowel movements, alternating between constipation and episodes of profuse diarrhea. She denies any history of gallbladder issues and still has her gallbladder. She also reports significant swelling in her legs, which sometimes turns purple and causes paresthesia. She recently underwent an ultrasound of her right leg, which revealed a sebaceous cyst and a possible venous varicosity or pseudoaneurysm. She denies any chest pain, dyspnea, or urinary symptoms. She is not currently . Review of Systems Constitutional: (+) fatigue, (+) diaphoresis, (+) heat intolerance, (+) weight gain, (+) decreased appetite, (-) fever Head: (+) headaches Ears/Nose/Mouth/Throat: (-) dysphagia Cardiovascular: (+) palpitations, (+) edema, (-) chest pain Respiratory: (-) shortness of breath, (-) cough Gastrointestinal: (+) right upper quadrant abdominal pain, (+) nausea, (+) constipation, (+) diarrhea, (+) epigastric burning, (-) vomiting Genitourinary: (-) dysuria, (-) urinary frequency Skin: (+) leg discoloration Neurological: (+) paresthesias PAST MEDICAL HISTORY Diagnosis Date Anorexia nervosa (HCC) Asthma (HCC) Bipolar disorder (HCC) Borderline personality disorder (HCC) Generalized anxiety disorder Headache High risk sexual behavior pt stopped B/C and she is on high risk antipsychotic medication HRP (high risk ) (HCC) substance abuse/bipolardisorder/pe rsonality disorder Menometrorrhagia Nausea and vomiting Opioid dependence (HCC) on suboxone psych/addiction dr delarosa Patient noncompliance Polysubstance dependence (HCC) heroin, thc, opiates , cocaine Polysubstance dependence (HCC) Subjective visual disturbance Tobacco dependence syndrome PAST SURGICAL HISTORY Procedure Laterality Date ADENOIDECTOMY HX 02/26/2013 DELIVERY ONLY Bilateral 07/16/2023 bilateral salpingectomy ORAL SURGERY PROCEDURE wisdom teeth removed TONSILLECTOMY HX 02/26/2013 FAMILY HISTORY Problem Relation Age of Onset Diabetes Mother COPD Father No Known Problems Brother Lymphoma Maternal Grandmother Cancer Maternal Grandfather Colon, lung, brain, throat cancer other (heart disease [Other]) Maternal Grandfather Breast Cancer Paternal Grandmother Diabetes Paternal Grandfather Hypertension Paternal Grandfather Hyperlipidemia Paternal Grandfather Social History Tobacco Use Smoking status: Every Day Current packs/day: 0.50 Types: Cigarettes Smokeless tobacco: Never Vaping Use Vaping status: Former Substance Use Topics Alcohol use: No Drug use: Not Currently Types: Marijuana, Narcotics Comment: mjn during ; but not recently; Hx opiod use - attends AA Current Outpatient Medications Medication Sig QUEtiapine (SEROQUEL) 25 mg tablet Take 25 mg by mouth two times a day. SUBLOCADE 100 mg/0.5 mL injection cyclobenzaprine (FLEXERIL) 10 mg tablet Take 1 tablet by mouth three times a day as needed for muscle spasm or pain. FLUoxetine (PROZAC) 20 mg capsule Take 1 capsule by mouth every afternoon. lithium carbonate 600 mg capsule Take 600 mg by mouth at bedtime as needed. levothyroxine (SYNTHROID) 25 mcg tablet Take 1 tablet by mouth daily before breakfast. famotidine (PEPCID) 40 mg tablet Take 1 tablet by mouth daily at bedtime. No current facility-administered medications for this visit. Objective BP 118/80 (BP Sit (more content not included)... Normal [facility] US Extremity - righton 08-23 IMPRESSION: 2 findin gs at the site of patient concern: The structure just deep to the skin surface likely reflects a sebaceous/epidermal inclusion cyst; the slightly deeper subcutaneous structure suggests a thrombosed vascular structure, perhaps a venous varicosity or pseudoaneurysm. [employer]: [employer] Transcribe Date/Time: Aug 23 2024 9:27A Dictated by : YESSICA DAVIDSON MD This examination was interpreted and the report reviewed and electronically signed by: YESSICA DAVIDSON MD on Aug 23 2024 9:31AM [facility] DIVISION OF RADIOLOGY * * *Final Report* * * DATE OF EXAM: Aug 19 2024 10:00AM [facility] 1025 - US EXT MASS/FLUID COLLECTION RT / PROCEDURE REASON: Mass of leg, right * * * * Physician Interpretation * * * * US EXT MASS/FLUID COLLECTION RT INDICATION: Mass of leg, right; patient states palpable lump right knee x1 month COMPARISON: No relevant prior TECHNIQUE: Real-time grayscale ultrasound imaging of the right medial knee was performed at the site of patient concern. Images were obtained and stored in a permanent archive. RESULT: Imaging of the right medial knee demonstrates a lobulated, wider than tall, circumscribed, avascular, anechoic 1.3 x 0.4 x 1 cm structure just deep to the skin surface with distal acoustic enhancement. In close proximity and in a slightly deeper subcutaneous location is a heterogeneously hypoechoic, circumscribed, ovoid, avascular 0.8 x 1 x 0.8 cm structure with distal acoustic enhancement, which abuts a vascular structure. DIVISION OF RADIOLOGY Provider, [facility] - 08/23/2024 * * *Final Report* * * DATE OF EXAM: Aug 19 2024 10:00AM [facility] 1025 - US EXT MASS/FLUID COLLECTION RT / PROCEDURE REASON: Mass of leg, right * * * * Physician Interpretation * * * * US EXT MASS/FLUID COLLECTION RT INDICATION: Mass of leg, right; patient states palpable lump right knee x1 month COMPARISON: No relevant prior TECHNIQUE: Real-time grayscale ultrasound imaging of the right medial knee was performed at the site of patient concern. Images were obtained and stored in a permanent archive. RESULT: Imaging of the right medial knee demonstrates a lobulated, wider than tall, circumscribed, avascular, anechoic 1.3 x 0.4 x 1 cm structure just deep to the skin surface with distal acoustic enhancement. In close proximity and in a slightly deeper subcutaneous location is a heterogeneously hypoechoic, circumscribed, ovoid, avascular 0.8 x 1 x 0.8 cm structure with distal acoustic enhancement, which abuts a vascular structure. IMPRESSION IMPRESSION: 2 findings at the site of patient concern: The structure just deep to the skin surface likely reflects a sebaceous/epidermal inclusion cyst; the slightly deeper subcutaneous structure suggests a thrombosed vascular structure, perhaps a venous varicosity or pseudoaneurysm. [employer]: MARY Transcribe Date/Time: Aug 23 2024 9:27A Dictated by : YESSICA DAVIDSON MD This examination was interpreted and the report reviewed and electronically signed by: YESSICA DAVIDSON MD on Aug 23 2024 9:31AM EST [facility] US Extremity - rightOrdered By: Ccf Provider on 08-23-2024 [facility] US EXT MASS/FLUID COLLECTION RTon 08-19-2024 US EXT MASS/FLUID COLLECTION RT * * *Final Report* * * DATE OF EXAM: Aug 19 2024 10:00AM [facility] 1025 - US EXT MASS/FLUID COLLECTION RT / PROCEDURE REASON: Mass of leg, right * * * * Physician Interpretation * * * * US EXT MASS/FLUID COLLECTION RT INDICATION: Mass of leg, right; patient states palpable lump right knee x1 month COMPARISON: No relevant prior TECHNIQUE: Real-time grayscale ultrasound imaging of the right medial knee was performed at the site of patient concern. Images were obtained and stored in a permanent archive. RESULT: Imaging of the right medial knee demonstrates a lobulated, wider than tall, circumscribed, avascular, anechoic 1.3 x 0.4 x 1 cm structure just deep to the skin surface with distal acoustic enhancement. In close proximity and in a slightly deeper subcutaneous location is a heterogeneously hypoechoic, circumscribed, ovoid, avascular 0.8 x 1 x 0.8 cm structure with distal acoustic enhancement, which abuts a vascular structure. IMPRESSION: 2 findings at the site of patient concern: The structure just deep to the skin surface likely reflects a sebaceous/epidermal inclusion cyst; the slightly deeper subcutaneous structure suggests a thrombosed vascular structure, perhaps a venous varicosity or pseudoaneurysm. [employer]: MARY Transcribe Date/Time: Aug 23 2024 9:27A Dictated by : YESSICA DAVIDSON MD This examination was interpreted and the report reviewed and electronically signed by: YESSICA DAVIDSON MD on Aug 23 2024 9:31AM EST [id number] Normal [facility] US Extremity - righton 08-19 Radiology Study observation (narrative) [facility] CNTHERAPYon 08-13-2024 CNTHERAPY OT/PT/Speech Visit (PTWS) -------- CRYSTAL MACHUCA ([id number]) 1990 F Date Time Provider Department 08/13/24 10:00 AM SHANEL BRADFORD PTWS Date Time Provider Department Center 08/13/2024 10:00 AM [id number], SEAN PTWS Lenin Guillermo Reason for Visit: PT Discharge [752] Primary Visit Diagnosis:Left-sided low back pain with left-sided sciatica, unspecified chronicity [M54.42] Other Visit Diagnoses:Neck pain on left side [M54.2] Cervical radiculopathy [M54.12] Allergies As of Date: 08/13/2024 Noted Allergy Reaction AUGMENTIN (AMOXICILLIN-POT CLAVUL*04/01/2015 4 - Hives NORCO (HYDROCODONE-ACETAMINOPH EN) 04/01/2015 11 - Vomiting PENICILLIN 04/01/2015 4 - Hives TRAMADOL 04/01/2015 11 - Vomiting Date Reviewed: 08/05/2024 Reviewed by: Amilcar Rivera PA-C - Fully Assessed Prescriptions as of 08/13/2024 - SUBLOCADE 100 mg/0.5 mL injection - prazosin (MINIPRESS) 2 mg cap Take 1 capsule by mouth daily at bedtime. - cyclobenzaprine (FLEXERIL) 10 mg tablet Take 1 tablet by mouth three times a day as needed for muscle spasm or pain. - FLUoxetine (PROZAC) 20 mg capsule Take 1 capsule by mouth every afternoon. - lithium carbonate 600 mg capsule Take 600 mg by mouth at bedtime as needed. Normal [facility] CORTISOL, SERUMon 08-11-2024 Cortisol [Mass/Vol] 4.6 ug/dL Low 4.8 - 19 .5 ug/dL [facility] Comment on above: Provided reference r kendrick is from 6-10 AM sample collection time. Cortisol Reference Range: 6-10 AM = 4.8-19.5 ug/dL, 4-8 PM = 2.5-11.9 ug/dL Comprehensive metabolic 2000 panelOrdered By: Fifi Dee on 08-11-2024 Albumin [Mass/Vol] 4.3 g/dL 3.9 - 4.9 g/dL [facility] ALP [Catalytic activity/Vol] 69 U/L 34 - 123 U/L [facility] ALT [Catalytic activity/Vol] 11 U/L 7 - 38 U/L [facility] Anion gap [Moles/Vol] 12 mmol/L 8 - 15 mmol/L [facility] AST [Catalytic activity/Vol] 18 U/L 13 - 35 U/L [facility] Bilirubin [Mass/Vol] 0.2 mg/dL 0.2 - 1 .3 mg/dL [facility] Calcium [Mass/Vol] 9.3 mg/dL 8.5 - 10. 2 mg/dL [facility] Chloride [Moles/Vol] 105 mmol/L 98 - 10 7 mmol/L [facility] CO2 [Moles/Vol] 18 mmol/L Low 22 - 30 mmol/L [facility] Creatinine [Mass/Vol] 0.64 mg/dL 0.58 - 0.96 mg/dL [facility] GFR/1.73 sq M.predicted among non-blacks MDRD (S/P/Bld) [Vol rate/Area] 121 mL/min/{1.73_m2} - PINF [facility] Comment on above: Estimated Glomerular Filtration Rate (eGFR) is calculated using the 2020 CKD-EPI creatinine equation. This equation utilizes serum creatinine, sex, and age as parameters. The creatinine assay has traceable calibration to isotope dilution-mass spectrometry. Refer to KDIGO guidelines for clinical interpretation. In patients with unstable renal function, e.g. those with acute kidney injury, the eGFR may not accurately reflect actual GFR. Glucose [Mass/Vol] 94 mg/dL 74 - 99 mg/dL [facility] Comment on above: The [place] Diabete s Association (ADA) provides guidance for cutoff values for fasting glucose and random glucose. The ADA defines fasting as no caloric intake for at least 8 hours. Fasting plasma glucose results between 100 to 125 mg/dL indicate increased risk for diabetes (prediabetes). Fasting plasma glucose results greater than or equal to 126 mg/dL meet the criteria for diagnosis of diabetes. In the absence of unequivocal hyperglycemia, results should be confirmed by repeat testing. In a patient with classic symptoms of hyperglycemia or hyperglycemic crisis, random plasma glucose results greater than or equal to 200 mg/dL meet the criteria for diagnosis of diabetes. Reference: Standards of Medical Care in Diabetes 2016, [place] Diabetes Association. Diabetes Care. 2016.39(Suppl 1). Interpretation and review of laboratory results Abnormal [facility] Potassium [Moles/Vol] 4 mmol/L 3.7 - 5.1 mmol/L [facility] Protein [Mass/Vol] 7.6 g/dL 6.3 - 8.0 g/dL [facility] Sodium [Moles/Vol] 135 mmol/L Low 136 - 144 mmol/L [facility] Urea nitrogen [Mass/Vol] 11 mg/dL 7 - 21 mg/dL [facility] Comprehensive metabolic 2000 panelon 08-11-2024 Albumin [Mass/Vol] 4.3 g/dL Normal 3.9-4.9 [facility] Comment on above: Order Comment: Nusrat morgan Type: BLOOD SPECIMENOrdering Facility: [facility] Address: [address] [place] [address] Performed By: #### 2 4323-8 ####[facility]ITALLIA [id number] [place] [address] [place] ALP [Catalytic activity/Vol] 69 U/L Normal 34-123 [facility] Comment on above: Order Comment: Nusrat morgan Type: BLOOD SPECIMENOrdering Facility: [facility] Address: [address] [place] [address] Performed By: #### 2 4323-8 ####[facility]ITALWNCLIA [id number] [place] [address] [place] ALT [Catalytic activity/Vol] 11 U/L Normal 7-38 [facility] Comment on above: Order Comment: Nusrat morgan Type: BLOOD SPECIMENOrdering Facility: [facility] Address: [address] [place] [address] Performed By: #### 2 4323-8 ####[facility] [id number] [place] [address] [place] Anion gap [Moles/Vol] 12 mmol/L Normal 8-15 [facility] Comment on above: Order Comment: Speci men Type: BLOOD SPECIMENOrdering Facility: [facility] Address: [address] [place] [address] Performed By: #### 2 4323-8 ####[facility]ITALWNCLIA [id number] [place] [address] [place] AST [Catalytic activity/Vol] 18 U/L Normal 13-35 [facility] Comment on above: Order Comment: Speci men Type: BLOOD SPECIMENOrdering Facility: [facility] Address: [address] [place] [address] Performed By: #### 2 4323-8 ####[facility] [id number] [place] [address] [place] Bilirubin [Mass/Vol] 0.2 mg/dL Normal 0.2-1.3 [facility] Comment on above: Order Comment: Speci men Type: BLOOD SPECIMENOrdering Facility: [facility] Address: [address] [place] [address] Performed By: #### 2 4323-8 ####[facility]ITALNCA [id number] [place] [address] [place] Calcium [Mass/Vol] 9.3 mg/dL Normal 8.5-10.2 [facility] Comment on above: Order Comment: Speci men Type: BLOOD SPECIMENOrdering Facility: [facility] Address: [address] [place] [address] Performed By: #### 2 4323-8 ####[facility] [id number] [place] [address] [place] Chloride [Moles/Vol] 105 mmol/L Normal 98-107 [facility] Comment on above: Order Comment: Speci men Type: BLOOD SPECIMENOrdering Facility: [facility] Address: [address] [place] [address] Performed By: #### 2 4323-8 ####[facility] [id number] [place] [address] [place] CO2 [Moles/Vol] 18 mmol/L Low 22-30 [facility] Comment on above: Order Comment: Speci men Type: BLOOD SPECIMENOrdering Facility: [facility] Address: [address] [place] [address] Performed By: #### 2 4323-8 ####[facility] [id number] [place] [address] [place] Creatinine [Mass/Vol] 0.64 mg/dL Normal 0.58-0.96 [facility] Comment on above: Order Comment: Speci men Type: BLOOD SPECIMENOrdering Facility: [facility] Address: [address] [place] [address] Performed By: #### 2 4323-8 ####[facility]ITALNCA [id number] [address] [place] Creatinine and Glomerular filtration rate.predicted panel (S/P/Bld) 121 mL/min/1.73m??? Normal >=60 [facility] Comment on above: Order Comment: Speci men Type: BLOOD SPECIMENOrdering Facility: [facility] Address: [address] [place] [address] Result Comment: Afia mated Glomerular Filtration Rate (eGFR) is calculated using the 2020 CKD-EPI creatinine equation. This equation utilizes serum creatinine, sex, and age as parameters. The creatinine assay has traceable calibration to isotope dilution-mass spectrometry. Refer to KDIGO guidelines for clinical interpretation. In patients with unstable renal function, e.g. those with acute kidney injury, the eGFR may not accurately reflect actual GFR. Performed By: #### 2 4323-8 ####[facility]ITALWNCLIA [id number] [place] [address] [place] Glucose [Mass/Vol] 94 mg/dL Normal 74-99 [facility] Comment on above: Order Comment: Speci men Type: BLOOD SPECIMENOrdering Facility: [facility] Address: [address] [place], [place] [id number] Result Comment: The [place] Diabetes Association (ADA) provides guidance for cutoff values for fasting glucose and random glucose. The ADA defines fasting as no caloric intake for at least 8 hours. Fasting plasma glucose results between 100 to 125 mg/dL indicate increased risk for diabetes (prediabetes). Fasting plasma glucose results greater than or equal to 126 mg/dL meet the criteria for diagnosis of diabetes. In the absence of unequivocal hyperglycemia, results should be confirmed by repeat testing. In a patient with classic symptoms of hyperglycemia or hyperglycemic crisis, random plasma glucose results greater than or equal to 200 mg/dL meet the criteria for diagnosis of diabetes. Reference: Standards of Medical Care in Diabetes 2016, [place] Diabetes Association. Diabetes Care. 2016.39(Suppl 1). Performed By: #### 2 4323-8 ####[facility] MILLTOWNCLIA [id number] [place] [address] [place] Potassium [Moles/Vol] 4.0 mmol/L Normal 3.7-5.1 [facility] Comment on above: Order Comment: Speci men Type: BLOOD SPECIMENOrdering Facility: [facility] Address: [address] [place], [place] [address] Performed By: #### 2 4323-8 ####[facility] MILLTOWNCLIA [id number] [place] [address] [place] Protein [Mass/Vol] 7.6 g/dL Normal 6.3-8.0 [facility] Comment on above: Order Comment: Speci men Type: BLOOD SPECIMENOrdering Facility: [facility] Address: [address] [place], [place] [address] Performed By: #### 2 4323-8 ####[facility] MILLTOWNCLIA [id number] [place] [address] [place] Sodium [Moles/Vol] 135 mmol/L Low 136-144 [facility] Comment on above: Order Comment: Speci men Type: BLOOD SPECIMENOrdering Facility: [facility] Address: [address] [place] [address] Performed By: #### 2 4323-8 ####[facility]ITALWNCLIA [id number] [place] [address] [place] Urea nitrogen [Mass/Vol] 11 mg/dL Normal 7-21 [facility] Comment on above: Order Comment: Speci men Type: BLOOD SPECIMENOrdering Facility: [facility] Address: [address] [place] [address] Performed By: #### 2 4323-8 ####[facility]OS[facility]ITALLI [id number] [place] [address] [place] Cortis SerPl-mCncon 08-12-19 25 Cortisol [Mass/Vol] 4.6 ug/dL Low 4.8-19.5 [facility] Comment on above: Order Comment: Speci men Type: BLOOD SPECIMENOrdering Facility: [facility] Address: [address] [place] [address] Result Comment: Prov ided reference range is from 6-10 AM sample collection time. Cortisol Reference Range: 6-10 AM = 4.8-19.5 ug/dL, 4-8 PM = 2.5-11.9 ug/dL Performed By: #### 2 143-6 ####[facility] LABCLIA [id number] [place] [address] [place] Cortisol [Mass/Vol]on 2024 Interpretation and review of laboratory results Abnormal [facility] No Panel Informationon 08-11 Interpretation and review of laboratory results Abnormal [facility] Interpretation and review of laboratory results Normal [facility] PROLACTINon 08-11-2024 Prolactin [Mass/Vol] 14.9 ng/mL 4.4 - 3 3.8 ng/mL [facility] Comment on above: Prolactin test is pe rformed using the [employer] Electrochemiluminescence Immunoassay method. Results obtained with different methods or kits cannot be used interchangeably. Prolactin SerPl-mCncon 08-11 Prolactin [Mass/Vol] 14.9 ng/mL Normal 4.4-33.8 [facility] Comment on above: Order Comment: Speci men Type: BLOOD SPECIMENOrdering Facility: [facility] Address: [address] [place] [address] Result Comment: Prol actin test is performed using the [employer] Electrochemiluminescence Immunoassay method. Results obtained with different methods or kits cannot be used interchangeably. Performed By: #### 3 024-7, 3016-3, 2842-3, 3051-0 ####[facility] LABIA [id number] [place] [address] [place] T3, FREEon 08-11-2024 Free T3 [Mass/Vol] 2.9 pg/mL 2.3 - 4.1 pg/mL [facility] T3Free SerPl-ncon 08-12-19 25 Free T3 [Mass/Vol] 2.9 pg/mL Normal 2.3-4.1 [facility] Comment on above: Order Comment: Speci men Type: BLOOD SPECIMENOrdering Facility: [facility] Address: [address] [place] [address] Performed By: #### 3 024-7, 3016-3, 2842-3, 3051-0 ####[facility] LABIA [id number] [place] [address] [place] T4 FREE/FREE THYROXINEon Free T4 [Mass/Vol] 0.8 ng/dL Low 0.9 - 1.7 ng/dL [facility] T4 Free SerPl-mCncon 025 Free T4 [Mass/Vol] 0.8 ng/dL Low 0.9-1.7 [facility] Comment on above: Order Comment: Speci men Type: BLOOD SPECIMENOrdering Facility: [facility] Address: [address] [place] [address] Performed By: #### 3 024-7, 3016-3, 2842-3, 3051-0 ####[facility] LABCLIA [id number] [place] [address] [place] THYROID STIMULATING HORMONEo n 08-11-2024 TSH Qn 17.8 m[IU]/L High [facility] Comment on above: If the patient is pr egnant, TSH reference range varies by gestational period: First Trimester (weeks 9-12): 0.180-2.990 mIU/L Second Trimester: 0.110-3.980 mIU/L Third Trimester: 0.480-4.710 mIU/L Thomas Hinojosa et al. A Practical Approach for the Verifications and Determination of Site- and Trimester-Specific Reference Intervals for Thyroid Function tests in . Thyroid, 2019:29:3:412-420. Tin Montelongo, et al. 2017 Guidelines of the [place] Thyroid Association for the Diagnosis and Management of Thyroid Disease during and the . Thyroid, 2017:27:3:315-389. TSH SerPl-aCncon 08-11-2024 TSH Qn 17.800 m[IU]/L High 0.270-4.200 [facility] Comment on above: Order Comment: Speci men Type: BLOOD SPECIMENOrdering Facility: [facility] Address: [address] [place] [address] Result Comment: If t he patient is , TSH reference range varies by gestational period: First Trimester (weeks 9-12): 0.180-2.990 mIU/L Second Trimester: 0.110-3.980 mIU/L Third Trimester: 0.480-4.710 mIU/L Thomas Hinojosa et al. A Practical Approach for the Verifications and Determination of Site- and Trimester-Specific Reference Intervals for Thyroid Function tests in . Thyroid, 2019:29:3:412-420. Tin Montelongo et al. 2017 Guidelines of the [place] Thyroid Association for the Diagnosis and Management of Thyroid Disease during and the . Thyroid, 2017:27:3:315-389. Performed By: #### 3 024-7, 3016-3, 2842-3, 3051-0 ####[facility] LABCLIA [id number] [place] [address] [place] Urinalysis complete panel (U )Ordered By: Dion Wayne on 08-11-2024 Bacteria uL uL High - 941 uL [facility] Bilirubin Ql (U) 1+ Abnormal Negative [facility] Comment on above: Suggest correlation with clinical findings and serum bilirubin if clinically indicated. Clarity (Unsp spec) Turbid Abnormal Clear [facility] Color (U) Red Abnormal Yellow [facility] Epithelial cells LM.HPF (Urine sed) [#/Area] Moderate /HPF [facility] Glucose Test strip (U) [Mass/Vol] Negative Negative [facility] Hemoglobin Ql (U) 3+ Abnormal Negative [facility] Hyaline casts (Urine sed) [#/Area] 1-3 /LPF Abnormal 0 /LPF [facility] Interpretation and review of laboratory results Abnormal [facility] Ketones Ql (U) Negative Negative [facility] Leukocyte esterase Test strip Ql (U) 2+ Abnormal Negative [facility] Nitrite Ql (U) Negative Negative [facility] pH (U) 6.5 [pH] NINF - 8.5 [facility] Protein (U) [Mass/Vol] 3+ Abnormal Negative [facility] RBC LM.HPF (Urine sed) [#/Area] /[HPF] Abnormal 0-2 /HPF [facility] Specific gravity (U) [Rel density] 1.021 1.005 - 1.030 [facility] Urobilinogen Ql (U) 0.2 EU/dL 0.2-1.0 EU/dL [facility] WBC LM.HPF (Urine sed) [#/Area] /[HPF] Abnormal 0-5 /HPF [facility] Result rechecked. Questionable urine chemistry results This test was developed and its performance characteristics determined by [facility]'s Genaro JMarcus [facility] Pathology and Laboratory Medicine [place] (RT-PLMI). It has not been cleared or approved by the FDA. -[facility] is regulated under CLIA as qualified to perform high-complexity testing. This test is used for clinical purposes. It should not be regarded as investigational or for research. [facility] Urinalysis complete panel (U )on 08-11-2024 BACTERIA UL >9821 High Negative [facility] Comment on above: Order Comment: Speci men Type: URINE SPECIMENOrdering Facility: [facility] Address: [address] [place] [address] Performed By: #### 2 4356-8 ####[facility] LABCLIA [id number] [place] [address] [place] Bilirubin Ql (U) 1+ Abnormal Negative [facility] Comment on above: Order Comment: Speci men Type: URINE SPECIMENOrdering Facility: [facility] Address: [address] [place] [address] Result Comment: Sugg est correlation with clinical findings and serum bilirubin if clinically indicated. Performed By: #### 2 4356-8 ####[facility] LABCLIA [id number] [place] [address] [place] Clarity (Unsp spec) Turbid Abnormal Clear [facility] Comment on above: Order Comment: Speci men Type: URINE SPECIMENOrdering Facility: [facility] Address: [address] [place] [address] Performed By: #### 2 4356-8 ####[facility] LABCLIA [id number] [place] [address] [place] Color (U) Red Abnormal Yellow [facility] Comment on above: Order Comment: Speci men Type: URINE SPECIMENOrdering Facility: [facility] Address: [address] [place] [address] Performed By: #### 2 4356-8 ####[facility] [facility] LABCLIA [id number] [place] [id number] [place] Epithelial cells LM.HPF (Urine sed) [#/Area] Moderate Normal [facility] Comment on above: Order Comment: Speci men Type: URINE SPECIMENOrdering Facility: [facility] Address: [address] [place] [address] Performed By: #### 2 4356-8 ####[facility] LABCLIA [id number] [address] [place] [address] [place] Glucose Test strip (U) [Mass/Vol] Negative Normal Negative [facility] Comment on above: Order Comment: Speci men Type: URINE SPECIMENOrdering Facility: [facility] Address: [address] [place] [address] Performed By: #### 2 4356-8 ####[facility] LABCLIA [id number] [address], [place] [address] [place] Hemoglobin Ql (U) 3+ Abnormal Negative [facility] Comment on above: Order Comment: Speci men Type: URINE SPECIMENOrdering Facility: [facility] Address: [address] [place] [address] Performed By: #### 2 4356-8 ####[facility] LABCLIA [id number] [address], [place] [address] [place] Hyaline casts (Urine sed) [#/Area] 1-3 /LPF Abnormal 0 /LPF [facility] Comment on above: Order Comment: Speci men Type: URINE SPECIMENOrdering Facility: [facility] Address: [address] [place] [address] Performed By: #### 2 4356-8 ####[facility] LABCLIA [id number] [address], [address] [place] Ketones Ql (U) Negative Normal Negative [facility] Comment on above: Order Comment: Speci men Type: URINE SPECIMENOrdering Facility: [facility] Address: [address] [place] [address] Performed By: #### 2 4356-8 ####[facility] LABCLIA [id number] [address], [place] [address] [place] Leukocyte esterase Test strip Ql (U) 2+ Abnormal Negative [facility] Comment on above: Order Comment: Speci men Type: URINE SPECIMENOrdering Facility: [facility] Address: [address] [place] [address] Performed By: #### 2 4356-8 ####[facility] LABCLIA [id number] [place] [address] [place] Nitrite Ql (U) Negative Normal Negative [facility] Comment on above: Order Comment: Speci men Type: URINE SPECIMENOrdering Facility: [facility] Address: [address] [place] [address] Performed By: #### 2 4356-8 ####[facility] LABCLIA [id number] [place] [address] [place] pH (U) 6.5 [pH] Normal <8.5 [facility] Comment on above: Order Comment: Speci men Type: URINE SPECIMENOrdering Facility: [facility] Address: [address] [place] [address] Performed By: #### 2 4356-8 ####[facility] LABCLIA [id number] [place] [address] [place] Protein (U) [Mass/Vol] 3+ Abnormal Negative [facility] Comment on above: Order Comment: Speci men Type: URINE SPECIMENOrdering Facility: [facility] Address: [address] [place] [address] Performed By: #### 2 4356-8 ####[facility] LABIA [id number] [place] [address] [place] RBC LM.HPF (Urine sed) [#/Area] /[HPF] Abnormal 0-2 /HPF [facility] Comment on above: Order Comment: Speci men Type: URINE SPECIMENOrdering Facility: [facility] Address: [address] [place] [address] Performed By: #### 2 4356-8 ####[facility] LABCLIA [id number] [place] [address] [place] Specific gravity (U) [Rel density] 1.021 Normal 1.005-1.030 [facility] Comment on above: Order Comment: Speci men Type: URINE SPECIMENOrdering Facility: [facility] Address: [address] [place] [address] Performed By: #### 2 4356-8 ####[facility] [id number] [place] [address] [place] Urobilinogen Ql (U) 0.2 EU/dL Normal 0.2-1.0 EU/dL [facility] Comment on above: Order Comment: Speci men Type: URINE SPECIMENOrdering Facility: [facility] Address: [address] [place] [address] Performed By: #### 2 4356-8 ####[facility] [id number] [place] [address] [place] WBC LM.HPF (Urine sed) [#/Area] /[HPF] Abnormal 0-5 /HPF [facility] Comment on above: Order Comment: Speci men Type: URINE SPECIMENOrdering Facility: [facility] Address: [address] [place] [address] Performed By: #### 2 4356-8 ####[facility] [id number] [place] [address] [place] CNOVon 08-05-2024 CNOV Office Visit (LEIGH ANNYL ) -------- CRYSTAL MACHUCA ([id number]) 1990 F Date Time Provider Department 08/05/24 11:20 AM AMILCAR RIVERA During your visit today, we recorded the following information about you: Temperature Pulse Blood pressure Weight 99.5 degrees 80/minute 130/90 108 kg Height 1.651 m Amilcar Rivera PA-C 09/16/2024 9:17 PM Signed Subjective Crystal is a 34-year-old female, with a history of anxiety, presenting for evaluation of hyperhidrosis, weight gain, and fatigue. Crystal reports experiencing hyperhidrosis since the of her child approximately 1 year ago. She describes feeling "overly hot" to the point of nausea, even in cold temperatures, and notes constant sweating. She denies chills, cephalalgia, dizziness, visual changes, palpitations, or dyspnea. She has not measured her body temperature during these episodes. She also reports significant weight gain over the past 2 months, despite a decreased appetite and efforts to eat healthily. She denies emesis or diarrhea. She has been on Seroquel for anxiety for the past 3-4 months, which she notes has been effective. She also takes lithium, fluoxetine, and a muscle relaxant at bedtime. She receives a monthly injection from 180, which she has been on for 2 years. She denies any recent changes in medication or dosage adjustments. She has not been diagnosed with diabetes and denies any urinary symptoms. Crystal has a history of hypothyroidism and was previously on Synthroid, prescribed by her psychiatrist to aid in weight loss and increase energy levels. However, she discontinued the medication 7 months ago after her thyroid levels were found to be low. She has not had her thyroid levels checked since discontinuing the medication. She reports feeling fatigued and lethargic, with occasional weakness and shakiness during physical activity. She also experiences muscle aches and swelling in her hands, which she describes as "puffy" and painful when making a fist. She denies any recent illness or upper respiratory symptoms. Crystal reports regular but heavy menstrual periods. She denies any history of seizures. She has a lump behind her knee, which she describes as non-painful unless pressed hard. She has not had this evaluated. Review of Systems Constitutional: (+) excessive sweating, (+) heat intolerance, (+) weight gain, (+) fatigue, (+) decreased appetite, (-) chills Head: (-) headache Eyes: (-) blurred vision, (-) double vision, (-) visual disturbances Ears/Nose/Mouth/Throat: (+) xerostomia Cardiovascular: (-) palpitations Respiratory: (-) shortness of breath Gastrointestinal: (+) nausea, (-) vomiting, (-) diarrhea Genitourinary: (+) heavy menses, (-) dysuria, (-) urinary frequency Musculoskeletal: (+) myalgia, (+) hand swelling, (+) lumps behind right knee Neurological: (+) shakiness with exertion, (-) dizziness, (-) seizures Psychiatric: (+) anxiety, (-) sleep disturbance PAST MEDICAL HISTORY Diagnosis Date Anorexia nervosa (HCC) Asthma ([facility]) Bipolar disorder ([facility]) Borderline personality disorder (HCC) Generalized anxiety disorder Headache High risk sexual behavior pt stopped B/C and she is on high risk antipsychotic medication HRP (high risk ) ([facility]) substance abuse/bipolardisorder/pe rsonality disorder Menometrorrhagia Nausea and vomiting Opioid dependence ([facility]) on suboxone psych/addiction dr delarosa Patient noncompliance Polysubstance dependence ([facility]) heroin, thc, opiates , cocaine Polysubstance dependence ([facility]) Subjective visual disturbance Tobacco dependence syndrome PAST SURGICAL HISTORY Procedure Laterality Date ADENOIDECTOMY HX 02/26/2013 DELIVERY ONLY Bilateral 07/16/2023 bilateral salpingectomy ORAL SURGERY PROCEDURE wisdom teeth removed TONSILLECTOMY HX 02/26/2013 FAMILY HISTORY Problem Relation Age of Onset Diabetes Mother COPD Father No Known Problems Brother Lymphoma Maternal Grandmother Cancer Maternal Grandfather Colon, lung, brain, throat cancer other (heart disease [Other]) Maternal Grandfather Breast Cancer Paternal Grandmother Diabetes Paternal Grandfather Hypertension Paternal Grandfather Hyperlipidemia Paternal Grandfather Social History Tobacco Use Smoking status: Every Day Current packs/day: 0.50 Types: Cigarettes Smokeless tobacco: Never Vaping Use Vaping status: Former Substance Use Topics Alcohol use: No Drug use: Not Currently Types: Marijuana, Narcotics Comment: mjn during ; but not recently; Hx opiod use - attends AA Current Outpatient Medications Medication Sig SUBLOCADE 100 mg/0.5 mL injection FLUoxetine (PROZAC) 20 mg capsule Take 1 capsule by mouth every afternoon. lithium carbonate 600 mg capsule Take 600 mg by mouth at bedtime as needed. tiZANidine (ZANAFLEX) 4 mg tablet Take 1 tablet by mouth (more content not included)... Normal [facility] [id number] 07-30-2024 [id number] HNO ID: [id number] Author: SHANEL BRADFORD PT Service: ? Author Type: Physical Therapist Type: [id number] Filed: 07/30/2024 16:26 Note Text: [facility] Physical Therapy Plan of Care Certification Patient Name: Crystal Machuca : 1990 [facility] #: [id number] Date: 07/30/2024 To: Mikhail Mckeon MD From Therapist: Shanel Bradford PT RE: Patient Certification/ Recertification Your review, approval and electronic signature are required in order to comply with Payor: [facility] MEDICAID / Plan: [place] MEDICAID / Product Type: Medicaid / regulations. The identified Physical Therapy PLAN OF CARE for the patient is as follows: M54.42 Left-sided low back pain with left-sided sciatica, unspecified chronicity (primary encounter diagnosis) M54.2 Neck pain on left side M54.12 Cervical radiculopathy PLAN OF CARE UPDATE: Assessment: Crystal Machuca demonstrates difficulty with rising from a chair, standing, walking, bending, heavy exertion, lifting, physical activities, recreational activities, working, and driving. The patient has not progressed towards goals. Patient continues to present with impairments in ADL's, overall function, range of motion, strength, and symptom management that interfere with sitting, rising from a chair, standing, walking, stair negotiation, bending, heavy exertion, physical activities, recreational activities, lifting, working, sleeping, driving . Current prognosis is Poor due to: clinical presentation, multiple co- morbidities, chronic nature of impairments, limited tolerance to activity, limited support system, occupational demands, poor past response to therapy intervention . The patient will benefit from continued skilled therapy services to meet the updated goals for this plan of care as noted below. Goals updated on 07/13/2024. Goals for Episode of Care: established 05/25/24 Independent in home exercises. Met Patient will decrease pain rating by 2 points to meet minimal clinical important difference for numeric pain rating scale. 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 Not met Sleep through night without pain/symptoms. Not met Maintain proper sitting posture throughout session. Improved awareness Patient will increase strength of trunk/core to 4+/5 to allow for improve ability to complete ADLs. Not met Restore pain free cervical ROM to WNL to allow for decreased pain and improved functional mobility tolerance. Not met Drive with no aggravation of pain/symptoms. Not met Time Frame for Goals and Treatment : 08/14/24 Planned Interventions, Frequency, and Duration: 1x/week, 2 weeks Total Number of Visits Planned: 2 Patient to be seen for Therapeutic exercise (27571), Neuromuscular re-education (46935), Manual therapy (79628), Therapeutic activities (44183), Self-fdc management (42789), Patient/Family/Caregiver Education, Body Mechanics Training PLAN FOR NEXT VISIT: DC next session due to lack of progress made For further details regarding this patient refer to the Physical Therapy electronically documented visit dated 07/30/2024. Provider Attestation I have reviewed the treatment plan for Crystal Machuca, CCF# [id number] for the period of 07/30/24 -- 08/30/24, established on 07/30/2024. Signature certifies the need for therapy services. Normal [facility] CNTHERAPYon 07-30-2024 CNTHERAPY OT/PT/Speech Visit (PTWS) -------- CRYSTAL MACHUCA ([id number]) 1990 F Date Time Provider Department 07/30/24 10:45 AM SHANEL BRADFORD PTCARLOS Date Time Provider Department Center 07/30/2024 10:45 AM [id number] BRADFORD Reason for Visit: PT Re-eval [891] Primary Visit Diagnosis:Left-sided low back pain with left-sided sciatica, unspecified chronicity [M54.42] Other Visit Diagnoses:Neck pain on left side [M54.2] Cervical radiculopathy [M54.12] Allergies As of Date: 07/30/2024 Noted Allergy Reaction AUGMENTIN (AMOXICILLIN-POT CLAVUL*04/01/2015 4 - Hives NORCO (HYDROCODONE-ACETAMINOPH EN) 04/01/2015 11 - Vomiting PENICILLIN 04/01/2015 4 - Hives TRAMADOL 04/01/2015 11 - Vomiting Date Reviewed: 07/14/2024 Reviewed by: Sylvia Bansal MA - Fully Assessed Prescriptions as of 07/30/2024 - celecoxib (CELEBREX) 200 mg capsule Take 1 capsule by mouth once daily. - cyclobenzaprine (FLEXERIL) 10 mg tablet Take 1 tablet by mouth three times a day as needed for muscle spasm or pain. - QUEtiapine (SEROQUEL) 25 mg tablet Take 25 mg by mouth three times a day. - ferrous sulfate 325 mg (65 mg iron) tablet Take 1 tablet by mouth once daily. - Cholecalciferol, Vitamin D3, (VITAMIN D-3) 50 mcg (2,000 unit) cap Take 1 capsule by mouth once daily. - FLUoxetine (PROZAC) 20 mg capsule Take 1 capsule by mouth every afternoon. - lithium carbonate 600 mg capsule Take 600 mg by mouth at bedtime as needed. - levothyroxine (SYNTHROID) 50 mcg tablet Take 50 mcg by mouth every morning. - SUBLOCADE 300 mg/1.5 mL injection Inject 300 mg subcutaneously once every month. - prazosin HCl (PRAZOSIN ORAL) Take 1 mg by mouth once daily. Normal [facility] -------- CRYSTAL MACHUCA ([id number]) 1990 F Date Time Provider Department 07/22/24 [facility] During your visit today, we recorded the following information about you: Mikhail Mckeon MD 07/22/2024 12:06 PM Signed Pt continues to have neck pain and radicular symptoms. I placed order for MRI of c-spine. Allergies As of Date: 07/22/2024 Noted Allergy Reaction AUGMENTIN (AMOXICILLIN-POT CLAVUL*04/01/2015 4 - Hives NORCO (HYDROCODONE-ACETAMINOPH EN) 04/01/2015 11 - Vomiting PENICILLIN 04/01/2015 4 - Hives TRAMADOL 04/01/2015 11 - Vomiting Date Reviewed: 07/14/2024 Reviewed by: Sylvia Bansal MA - Fully Assessed Reason for Visit: Orders [681] Cmt: MRI cervical spine Primary Visit Diagnosis:Spinal stenosis of cervical region [M48.02] Order(s):MRI CERVICAL SPINE WO IVCON [[id number]] Order #: [id number] FUTURE Prescriptions as of 07/22/2024 - celecoxib (CELEBREX) 200 mg capsule Take 1 capsule by mouth once daily. - cyclobenzaprine (FLEXERIL) 10 mg tablet Take 1 tablet by mouth three times a day as needed for muscle spasm or pain. - QUEtiapine (SEROQUEL) 25 mg tablet Take 25 mg by mouth three times a day. - ferrous sulfate 325 mg (65 mg iron) tablet Take 1 tablet by mouth once daily. - Cholecalciferol, Vitamin D3, (VITAMIN D-3) 50 mcg (2,000 unit) cap Take 1 capsule by mouth once daily. - FLUoxetine (PROZAC) 20 mg capsule Take 1 capsule by mouth every afternoon. - lithium carbonate 600 mg capsule Take 600 mg by mouth at bedtime as needed. - levothyroxine (SYNTHROID) 50 mcg tablet Take 50 mcg by mouth every morning. - SUBLOCADE 300 mg/1.5 mL injection Inject 300 mg subcutaneously once every month. - prazosin HCl (PRAZOSIN ORAL) Take 1 mg by mouth once daily. Problem List As Of Date 07/22/2024 Noted Resolved HRP (high risk ) [O09.90] 09/02/2023 Bipolar disorder (HCC) [F31.9] Patient noncompliance [Z91.199] 12/10/2022 Polysubstance dependence (HCC) [F19.20] 12/10/2022 Menometrorrhagia [N92.1] 12/10/2022 Vaginal bleeding affecting early [O20*09/14/2021 12/10/2022 complicated by subutex maintenance, a*12/10/2022 09/02/2023 Tobacco use disorder [F17.200] 01/07/2023 History of posttraumatic stress disorder (PTSD)*04/01/2023 [employer] Consult 06/12 [O99.891] 04/02/2023 09/02/2023 Anemia complicating , third trimester *05/03/2023 09/02/2023 Polyhydramnios in third trimester [O40.3XX0] 06/26/2023 09/02/2023 Supervision of other high risk pregnancies, thi*07/09/2023 09/02/2023 History of section [Z98.891] 09/02/2023 History of opioid abuse (HCC) [F11.11] 09/02/2023 Obesity, Class I, BMI 30-34.9 [E66.811] 04/14/2024 Obesity, Class II, BMI 35-39.9 [E66.812] 05/14/2024 Left-sided low back pain with left-sided sciati*05/26/2024 Neck pain on left side [M54.2] 05/26/2024 Cervical radiculopathy [M54.12] 05/26/2024 Encounter Status:Closed by [facility] Visit ([facility] ) -------- CRYSTAL MACHUCA ([id number]) 1990 F Date Time Provider Department 07/14/24 9:45 AM MIKHAIL MCKEON [place] During your visit today, we recorded the following information about you: Pulse Weight Height 76/minute 97.1 kg 1.651 m Sylvia Bansal MA 07/14/2024 10:28 AM Signed 34 y/o female patient here today to follow up with mid AND low back pain. Patient states the pain is worse. She completed PT. Mikhail Mckeon MD 07/14/2024 10:28 AM Signed Crystal Machuca is a 34 year old presenting with Follow Up and Pain of the Middle Back and Follow Up and Pain of the Lower Back HPI: Patient is here for follow-up of her neck and back pain. She states she went through therapy but symptoms did not improve. She said that her hips are bothering her as well and she is having weakness when she is going up and down stairs. Left hip is bothering her more than the right. She states it hurts when she is rotating it or lifting it. Pain is more into the groin area. There was no injury there. Her back pain was more left-sided now it is more right-sided. It does seem to go down the legs. No loss of bowel or bladder control. Neck pain is still bothering her with the left upper back pain but that has not worsened. Review of Systems Constitutional: Negative for chills and fever. Musculoskeletal: Positive for back pain, joint pain (Bilateral hips) and neck pain. PAST MEDICAL HISTORY Diagnosis Date Anorexia nervosa (HCC) Asthma (HCC) Bipolar disorder (HCC) Borderline personality disorder (HCC) Generalized anxiety disorder Headache High risk sexual behavior pt stopped B/C and she is on high risk antipsychotic medication HRP (high risk ) ([facility]) substance abuse/bipolardisorder/pe rsonality disorder Menometrorrhagia Nausea and vomiting Opioid dependence (HCC) on suboxone psych/addiction dr delaroas Patient noncompliance Polysubstance dependence ([facility]) heroin, thc, opiates , cocaine Polysubstance dependence ([facility]) Subjective visual disturbance Tobacco dependence syndrome FAMILY HISTORY Problem Relation Age of Onset No Known Problems Mother No Known Problems Father No Known Problems Brother No Known Problems Maternal Grandmother Cancer Maternal Grandfather Colon, lung, brain, throat cancer other (heart disease [Other]) Maternal Grandfather Breast Cancer Paternal Grandmother Diabetes Paternal Grandfather Hypertension Paternal Grandfather Hyperlipidemia Paternal Grandfather Tobacco Use: High Risk (07/14/2024) Patient History Smoking Tobacco Use: Every Day Smokeless Tobacco Use: Never Passive Exposure: Not on file Alcohol Use: No Current Outpatient Medications Medication Sig celecoxib (CELEBREX) 200 mg capsule Take 1 capsule by mouth once daily. cyclobenzaprine (FLEXERIL) 10 mg tablet Take 1 tablet by mouth three times a day as needed for muscle spasm or pain. QUEtiapine (SEROQUEL) 25 mg tablet Take 25 mg by mouth three times a day. ferrous sulfate 325 mg (65 mg iron) tablet Take 1 tablet by mouth once daily. Cholecalciferol, Vitamin D3, (VITAMIN D-3) 50 mcg (2,000 unit) cap Take 1 capsule by mouth once daily. FLUoxetine (PROZAC) 20 mg capsule Take 1 capsule by mouth every afternoon. lithium carbonate 600 mg capsule Take 600 mg by mouth at bedtime as needed. levothyroxine (SYNTHROID) 50 mcg tablet Take 50 mcg by mouth every morning. prazosin HCl (PRAZOSIN ORAL) Take 1 mg by mouth once daily. SUBLOCADE 300 mg/1.5 mL injection Inject 300 mg subcutaneously once every month. (Patient not taking: Reported on 07/14/2024) No current facility-administered medications for this visit. ALLERGIES Allergen Reactions Augmentin [Amoxicil* Hives [place] [Hydrocodone-* Vomiting Penicillin Hives Tramadol Vomiting Pulse 76 Ht 5' 5" (1.65m) Wt 214 lb (97.1kg) SpO2 99% LMP 11/03/2023 BMI 35.61 kg/(m2). Physical Exam Vitals reviewed. Constitutional: General: She is not in acute distress. Musculoskeletal: Comments: Still has limited range of motion of the cervical spine and left paracervical and upper thoracic soft tissue tenderness.She has 1+ patella tendon and Achilles tendon reflexes equal bilateral. Patient has tenderness paralumbar soft tissue. She has pain with straight leg raise at about 45 degrees bilateral. She does have slight pain with internal/external rotation of the hips bilateral. Some mild weakness with hip flexion against resistance bilateral. Patient did have some tenderness in the left hip flexors and some mild pain with left hip flexion. She had some slight pain with DALY testing on the left. Right hip had no tenderness. X-rays of the hips today were unremarkable. Awaiting official read. Neurological: Mental Status: She is alert. Procedures ASSESSMENT/PLAN: 1. Left-sided low back pain with left-sided sciatica, un (more content not included)... Normal [facility] XR HIP GAIL 5V PEL+ AP/LAT EA HIPon 07-14-2024 XR HIP GAIL 5V PEL+ AP/LAT EA HIP * * *Final Report* * * DATE OF EXAM: Jul 14 2024 10:14AM RNX [id number] - XR HIP GAIL 5V PEL+ AP/LAT EA HIP / PROCEDURE REASON: multiple diagnoses * * * * Physician Interpretation * * * * XR HIP GAIL 5V PEL+ AP/LAT EA HIP Ordering Physician: MIKHAIL MCKEON 07/14/2024 10:14 AM BILATERAL HIPS AND PELVIS Clinical Statement: Pain FINDINGS: 2 views of the right and left hips were obtained with an additional image of the pelvis. There were no prior studies available for comparison. The femoral heads are in good position. The joint spaces are maintained. There are no acute fractures. The SI joints and symphysis are intact. IMPRESSION: No acute abnormalities. [employer]: MARY Transcribe Date/Time: Jul 15 2024 12:49P Dictated by : MARISSA ROBERSON MD This examination was interpreted and the report reviewed and electronically signed by: MARISSA ROBERSON MD on Jul 15 2024 12:51PM EST [id number] [facility] [facility] 07-13-[facility]24 CNTHERAPY OT/PT/Speech Visit (PTWS) -------- CRYSTAL MACHUCA ([id number]) 1990 F Date Time Provider Department 07/13/24 2:45 PM SHANEL BRADFORD PTCARLOS Date Time Provider Department Center 07/13/2024 2:45 PM [id number], SEAN PTWS Lenin Varma Reason for Visit: PT Discharge [752] Primary Visit Diagnosis:Left-sided low back pain with left-sided sciatica, unspecified chronicity [M54.42] Other Visit Diagnoses:Neck pain on left side [M54.2] Cervical radiculopathy [M54.12] Allergies As of Date: 07/13/2024 Noted Allergy Reaction AUGMENTIN (AMOXICILLIN-POT CLAVUL*04/01/2015 4 - Hives NORCO (HYDROCODONE-ACETAMINOPH EN) 04/01/2015 11 - Vomiting PENICILLIN 04/01/2015 4 - Hives TRAMADOL 04/01/2015 11 - Vomiting Date Reviewed: 06/16/2024 Reviewed by: Sylvia Bansal MA - Fully Assessed Prescriptions as of 07/13/2024 - celecoxib (CELEBREX) 200 mg capsule Take 1 capsule by mouth once daily. - cyclobenzaprine (FLEXERIL) 10 mg tablet Take 1 tablet by mouth three times a day as needed for muscle spasm or pain. - QUEtiapine (SEROQUEL) 25 mg tablet Take 25 mg by mouth three times a day. - ferrous sulfate 325 mg (65 mg iron) tablet Take 1 tablet by mouth once daily. - Cholecalciferol, Vitamin D3, (VITAMIN D-3) 50 mcg (2,000 unit) cap Take 1 capsule by mouth once daily. - FLUoxetine (PROZAC) 20 mg capsule Take 1 capsule by mouth every afternoon. - lithium carbonate 600 mg capsule Take 600 mg by mouth at bedtime as needed. - levothyroxine (SYNTHROID) 50 mcg tablet Take 50 mcg by mouth every morning. - SUBLOCADE 300 mg/1.5 mL injection Inject 300 mg subcutaneously once every month. - prazosin HCl (PRAZOSIN ORAL) Take 1 mg by mouth once daily. Shelter Monitor: Therapy (PT/OT/Speech/Resp) ID: [id number] 07/13/2024 3:16 PM Author: SHANEL BRADFORD Signed by SHANEL BRADFORD PT on 07/13/2024 at 3:16 PM Document text: Program_ID:[id number] Access Code: [email or web address] URL: [email or web address] Date: 07-13-2024 Prepared By: Shanel Bradford Program Notes Exercises - Seated Passive Cervical Retraction - 1 x daily - 7 x weekly - 3 sets - 10 reps - Supine Transversus Abdominis Bracing - Hands on Ground - 1 x daily - 7 x weekly - 3 sets - 10 reps - Supine March - 1 x daily - 7 x weekly - 3 sets - 10 reps - Quadruped Pelvic Floor Contraction with Opposite Arm and Leg Lift - 1 x daily - 7 x weekly - 3 sets - 10 reps - Lying Prone with 2 Pillows - 1 x daily - 7 x weekly - 3 sets - 10 reps - cc MDT LS Lying with Hips off Center Prone - 1 x daily - 7 x weekly - 3 sets - 10 reps Normal [facility] THERAPY NTon 07-13-2024 THERAPY NT HNO ID: [id number] Author: SHANEL BRADFORD PT Service: ? Author Type: Physical Therapist Type: Therapy (PT/OT/Speech/Resp) Filed: 07/13/2024 15:16 Note Text: Program_ID:[id number] Access Code: [email or web address] URL: [email or web address] Date: 07-13-2024 Prepared By: Shanel Bradford Program Notes Exercises - Seated Passive Cervical Retraction - 1 x daily - 7 x weekly - 3 sets - 10 reps - Supine Transversus Abdominis Bracing - Hands on Ground - 1 x daily - 7 x weekly - 3 sets - 10 reps - Supine March - 1 x daily - 7 x weekly - 3 sets - 10 reps - Quadruped Pelvic Floor Contraction with Opposite Arm and Leg Lift - 1 x daily - 7 x weekly - 3 sets - 10 reps - Lying Prone with 2 Pillows - 1 x daily - 7 x weekly - 3 sets - 10 reps - cc MDT LS Lying with Hips off Center Prone - 1 x daily - 7 x weekly - 3 sets - 10 reps Normal [facility] CNTHERAPYon 06-30-2024 CNTHERAPY OT/PT/Speech Visit (PTWS) -------- KNAFEL,CRYSTAL R ([id number]) 1990 F Date Time Provider Department 06/30/24 3:45 PM SHANEL BRADFORD PTWS Date Time Provider Department Center 06/30/2024 3:45 PM [id number], SEAN PTCARLOS Varma Reason for Visit: Physical Therapy [503] Primary Visit Diagnosis:Neck pain on left side [M54.2] Other Visit Diagnosis:Cervical radiculopathy [M54.12] Allergies As of Date: 06/30/2024 Noted Allergy Reaction AUGMENTIN (AMOXICILLIN-POT CLAVUL*04/01/2015 4 - Hives NORCO (HYDROCODONE-ACETAMINOPH EN) 04/01/2015 11 - Vomiting PENICILLIN 04/01/2015 4 - Hives TRAMADOL 04/01/2015 11 - Vomiting Date Reviewed: 06/16/2024 Reviewed by: Sylvia Bansal MA - Fully Assessed Prescriptions as of 07/01/2024 - celecoxib (CELEBREX) 200 mg capsule Take 1 capsule by mouth once daily. - cyclobenzaprine (FLEXERIL) 10 mg tablet Take 1 tablet by mouth three times a day as needed for muscle spasm or pain. - QUEtiapine (SEROQUEL) 25 mg tablet Take 25 mg by mouth three times a day. - ferrous sulfate 325 mg (65 mg iron) tablet Take 1 tablet by mouth once daily. - Cholecalciferol, Vitamin D3, (VITAMIN D-3) 50 mcg (2,000 unit) cap Take 1 capsule by mouth once daily. - FLUoxetine (PROZAC) 20 mg capsule Take 1 capsule by mouth every afternoon. - lithium carbonate 600 mg capsule Take 600 mg by mouth at bedtime as needed. - levothyroxine (SYNTHROID) 50 mcg tablet Take 50 mcg by mouth every morning. - SUBLOCADE 300 mg/1.5 mL injection Inject 300 mg subcutaneously once every month. - prazosin HCl (PRAZOSIN ORAL) Take 1 mg by mouth once daily. Normal [facility] CNTHERAPYon 06-24-2024 CNTHERAPY OT/PT/Speech Visit (PTWS) -------- EDGARCRYSTAL HOFF ([id number]) 1990 F Date Time Provider Department 06/24/24 1:45 PM SHANEL BRADFORD PTWS Date Time Provider Department Center 06/24/2024 1:45 PM [id number], SEAN PTWS Lenin Varma Reason for Visit: PT Progress Note [6126] Primary Visit Diagnosis:Left-sided low back pain with left-sided sciatica, unspecified chronicity [M54.42] Other Visit Diagnoses:Neck pain on left side [M54.2] Cervical radiculopathy [M54.12] Allergies As of Date: 06/24/2024 Noted Allergy Reaction AUGMENTIN (AMOXICILLIN-POT CLAVUL*04/01/2015 4 - Hives NORCO (HYDROCODONE-ACETAMINOPH EN) 04/01/2015 11 - Vomiting PENICILLIN 04/01/2015 4 - Hives TRAMADOL 04/01/2015 11 - Vomiting Date Reviewed: 06/16/2024 Reviewed by: Sylvia Bansal MA - Fully Assessed Prescriptions as of 06/24/2024 - celecoxib (CELEBREX) 200 mg capsule Take 1 capsule by mouth once daily. - cyclobenzaprine (FLEXERIL) 10 mg tablet Take 1 tablet by mouth three times a day as needed for muscle spasm or pain. - QUEtiapine (SEROQUEL) 25 mg tablet Take 25 mg by mouth three times a day. - ferrous sulfate 325 mg (65 mg iron) tablet Take 1 tablet by mouth once daily. - Cholecalciferol, Vitamin D3, (VITAMIN D-3) 50 mcg (2,000 unit) cap Take 1 capsule by mouth once daily. - FLUoxetine (PROZAC) 20 mg capsule Take 1 capsule by mouth every afternoon. - lithium carbonate 600 mg capsule Take 600 mg by mouth at bedtime as needed. - levothyroxine (SYNTHROID) 50 mcg tablet Take 50 mcg by mouth every morning. - SUBLOCADE 300 mg/1.5 mL injection Inject 300 mg subcutaneously once every month. - prazosin HCl (PRAZOSIN ORAL) Take 1 mg by mouth once daily. Letter Text Normal [facility] CNOVon 06-16-2024 CNOV Office Visit (ORMMNC ) -------- CRYSTAL MACHUCA ([id number]) 1990 F Date Time Provider Department 06/16/24 9:45 AM MIKHAIL MCKEON [facility] During your visit today, we recorded the following information about you: Pulse Weight Height 77/minute 97.1 kg 1.651 m Sylvia Bansal MA 06/16/2024 10:01 AM Signed 33 y/o female patient here today to follow up with low AND mid back pain. She is currently doing PT. Mikhail Mckeon MD 06/16/2024 10:01 AM Signed Crystal Machuca is a 33 year old presenting with Follow Up and Pain of the Middle Back and Follow Up and Pain of the Lower Back HPI: Patient is here today for follow-up of her low back pain. She is having neck pain as well but that is improved with her muscle relaxer. The back pain is with bothering her the most. It radiates into the left leg. She was only able to do 1 therapy session so far and has some more scheduled. Review of Systems Constitutional: Negative for chills and fever. Musculoskeletal: Positive for back pain and neck pain. Neurological: Positive for tingling and focal weakness (Lower extremity). PAST MEDICAL HISTORY Diagnosis Date Anorexia nervosa (HCC) Asthma (HCC) Bipolar disorder (HCC) Borderline personality disorder (HCC) Generalized anxiety disorder Headache High risk sexual behavior pt stopped B/C and she is on high risk antipsychotic medication HRP (high risk ) (HCC) substance abuse/bipolardisorder/pe rsonality disorder Menometrorrhagia Nausea and vomiting Opioid dependence ([facility]) on suboxone dr perdomo/addiction dr delarosa Patient noncompliance Polysubstance dependence (HCC) heroin, thc, opiates , cocaine Polysubstance dependence (HCC) Subjective visual disturbance Tobacco dependence syndrome FAMILY HISTORY Problem Relation Age of Onset No Known Problems Mother No Known Problems Father No Known Problems Brother No Known Problems Maternal Grandmother Cancer Maternal Grandfather Colon, lung, brain, throat cancer other (heart disease [Other]) Maternal Grandfather Breast Cancer Paternal Grandmother Diabetes Paternal Grandfather Hypertension Paternal Grandfather Hyperlipidemia Paternal Grandfather Tobacco Use: High Risk (06/16/2024) Patient History Smoking Tobacco Use: Every Day Smokeless Tobacco Use: Never Passive Exposure: Not on file Alcohol Use: No Current Outpatient Medications Medication Sig cyclobenzaprine (FLEXERIL) 10 mg tablet Take 1 tablet by mouth three times a day as needed for muscle spasm or pain. QUEtiapine (SEROQUEL) 25 mg tablet Take 25 mg by mouth three times a day. ferrous sulfate 325 mg (65 mg iron) tablet Take 1 tablet by mouth once daily. Cholecalciferol, Vitamin D3, (VITAMIN D-3) 50 mcg (2,000 unit) cap Take 1 capsule by mouth once daily. naproxen (NAPROSYN) 500 mg tablet Take 1 tablet by mouth two times a day as needed for pain. for pain. Take with food. FLUoxetine (PROZAC) 20 mg capsule Take 1 capsule by mouth every afternoon. lithium carbonate 600 mg capsule Take 600 mg by mouth at bedtime as needed. levothyroxine (SYNTHROID) 50 mcg tablet Take 50 mcg by mouth every morning. SUBLOCADE 300 mg/1.5 mL injection Inject 300 mg subcutaneously once every month. prazosin HCl (PRAZOSIN ORAL) Take 1 mg by mouth once daily. No current facility-administered medications for this visit. ALLERGIES Allergen Reactions Augmentin [Amoxicil* Hives [place] [Hydrocodone-* Vomiting Penicillin Hives Tramadol Vomiting Pulse 77 Ht 5' 5" (1.65m) Wt 214 lb (97.1kg) SpO2 98% LMP 11/03/2023 BMI 35.61 kg/(m2). Physical Exam Constitutional: General: She is not in acute distress. Musculoskeletal: Comments: Patient has some limited flexion and extension of her lumbar spine. She has pain when she is to extend. She has tenderness paralumbar soft tissue and negative straight leg raise bilateral. DTRs are 1+ patella and Achilles equal bilateral. No focal weakness distally. Neurological: Mental Status: She is alert. Procedures ASSESSMENT/PLAN: 1. Left-sided low back pain with left-sided sciatica, unspecified chronicity - ICD9: 724.3, ICD10: M54.42 (primary diagnosis) At this time patient is to go forward with physical therapy. I did prescribe Celebrex and had her stop the Naprosyn. Take the Flexeril as needed. Return here in 4 weeks for recheck. If not improving would order MRI of the lumbar spine. 2. Neck pain on left side - ICD9: 723.1, ICD10: M54.2 Pain seems to improve. Continue Flexeril and I did prescribe her Celebrex. Continue physical therapy. Follow-up in 4 weeks for recheck. No problem-specific Assessment AND Plan notes found for this encounter. Mikhail Mckeon MD 06/16/2024 9:58 AM Signed Try to do therapy once a week and continue doing therapy at home. Take the Flexeril as needed and I am going to have you stop the Naprosyn and try Celebrex for (more content not included)... [facility] [id number] 05-26-2024 [id number] O ID: [id number] Author: SHANEL BRADFORD PT Service: ? Author Type: Physical Therapist Type: [id number] Filed: 05/26/2024 14:57 Note Text: [facility] Physical Therapy Plan of Care Certification Patient Name: Crystal Machuca : 1990 [facility] #: [id number] Date: 05/25/2024 To: Mikhail Mckeon MD From Therapist: Shanel Bradford PT RE: Patient Certification/ Recertification Your review, approval and electronic signature are required in order to comply with Payor: [facility] MEDICAID / Plan: [facility] MEDICAID / Product Type: Medicaid / regulations. The identified Physical Therapy PLAN OF CARE for the patient is as follows: M54.42 Left-sided low back pain with left-sided sciatica, unspecified chronicity (primary encounter diagnosis) M54.2 Neck pain on left side M54.12 Cervical radiculopathy PLAN OF CARE: Assessment: Crystal Machuca presents with chief complaint of LBP, neck pain that interferes with sitting, bending, heavy exertion, physical activities, lifting . The patient presents with impairments in ADL's, overall function, range of motion, strength, stress management, symptom management, and tissue tenderness. PROMIS? (Patient-Reported Outcomes Measurement Information System) scores were reviewed and identified as a rehabilitation concern. Prognosis for therapy is Fair due to: clinical presentation, multiple co- morbidities, chronic nature of impairments, limited support system, occupational demands . The patient will benefit from skilled therapy services to meet the goals established for this plan of care as noted below. Classification Pain Mechanism Classification: Neuropathic Low Back Pain Classification: Symptom Modulation Goals for Episode of Care: established 05/25/24 Independent in home exercises. Patient will decrease pain rating by 2 points to meet minimal clinical important difference for numeric pain rating scale. 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 Sleep through night without pain/symptoms. Maintain proper sitting posture throughout session Patient will increase strength of trunk/core to 4+/5 to allow for improve ability to complete ADLs. Restore pain free cervical ROM to WNL to allow for decreased pain and improved functional mobility tolerance. Drive with no aggravation of pain/symptoms. Sleep throughout the night without pain/symptoms. Time Frame for Goals and Treatment : 07/26/24 Planned Interventions, Frequency, and Duration: Current Frequency: 1x every other week Duration: 8 weeks Total Number of Visits Planned: 4 Planned Treatment Interventions: Therapeutic exercise (11231), Neuromuscular re-education (53781), Manual therapy (36841), Therapeutic activities (13161), Self-fdc management (77719), Patient/Family/Caregiver Education, Body Mechanics Training PLAN FOR NEXT VISIT: Assess carry over of HEP, may work body mechanics to decrease pain/symptoms Patient demonstrates good understanding of plan of care and treatment. The above goals and plan of care were discussed and agreed upon by patient/family. For further details regarding this patient refer to the Physical Therapy electronically documented visit dated 05/25/2024. Provider Attestation I have reviewed the treatment plan for Crystal Machuca, [facility]# [id number] for the period of 05/25/24 -- 07/25/24, established on 05/25/2024. Signature certifies the need for therapy services. Normal [facility] CNTHERAPYon 05-25-2024 CNTHERAPY OT/PT/Speech Visit (PTWS) -------- CRYSTAL MACHUCA ([id number]) 1990 F Date Time Provider Department 05/25/24 11:30 AM SHANEL BRADFORD PTWS Date Time Provider Department [place] 05/25/2024 11:30 AM [id number], SEAN PTWS [place] Reason for Visit: PT Eval [747] Primary Visit Diagnosis:Left-sided low back pain with left-sided sciatica, unspecified chronicity [M54.42] Other Visit Diagnoses:Neck pain on left side [M54.2] Cervical radiculopathy [M54.12] Allergies As of Date: 05/25/2024 Noted Allergy Reaction AUGMENTIN (AMOXICILLIN-POT CLAVUL*04/01/2015 4 - Hives NORCO (HYDROCODONE-ACETAMINOPH EN) 04/01/2015 11 - Vomiting PENICILLIN 04/01/2015 4 - Hives TRAMADOL 04/01/2015 11 - Vomiting Date Reviewed: 05/14/2024 Reviewed by: Charlotte Bradley MA - Fully Assessed Prescriptions as of 05/26/2024 - QUEtiapine (SEROQUEL) 25 mg tablet Take 25 mg by mouth three times a day. - ferrous sulfate 325 mg (65 mg iron) tablet Take 1 tablet by mouth once daily. - Cholecalciferol, Vitamin D3, (VITAMIN D-3) 50 mcg (2,000 unit) cap Take 1 capsule by mouth once daily. - naproxen (NAPROSYN) 500 mg tablet Take 1 tablet by mouth two times a day as needed for pain. for pain. Take with food. - cyclobenzaprine (FLEXERIL) 10 mg tablet Take 1 tablet by mouth three times a day as needed for muscle spasm or pain. - FLUoxetine (PROZAC) 20 mg capsule Take 1 capsule by mouth every afternoon. - lithium carbonate 600 mg capsule Take 600 mg by mouth at bedtime as needed. - levothyroxine (SYNTHROID) 50 mcg tablet Take 50 mcg by mouth every morning. - SUBLOCADE 300 mg/1.5 mL injection Inject 300 mg subcutaneously once every month. - prazosin HCl (PRAZOSIN ORAL) Take 1 mg by mouth once daily. Shelter Monitor: Therapy (PT/OT/Speech/Resp) ID: [id number] 05/25/2024 12:19 PM Author: SHANEL BRADFORD Signed by SHANEL BRADFORD PT on 05/25/2024 at 12:19 PM Document text: Program_ID:[id number] Access Code: [email or web address] URL: [email or web address] Date: 05-25-2024 Prepared By: Shanel Bradford Program Notes Exercises - Seated Passive Cervical Retraction - 1 x daily - 7 x weekly - 3 sets - 10 reps - Supine Transversus Abdominis Bracing - Hands on Ground - 1 x daily - 7 x weekly - 3 sets - 10 reps - Supine March - 1 x daily - 7 x weekly - 3 sets - 10 reps - Quadruped Pelvic Floor Contraction with Opposite Arm and Leg Lift - 1 x daily - 7 x weekly - 3 sets - 10 reps Normal [facility] THERAPY NTon 05-25-2024 THERAPY NT HNO ID: [id number] Author: SHANEL BRADFORD PT Service: ? Author Type: Physical Therapist Type: Therapy (PT/OT/Speech/Resp) Filed: 05/25/2024 12:19 Note Text: Program_ID:[id number] Access Code: [email or web address] URL: [email or web address] Date: 05-25-2024 Prepared By: Shanel Bradford Program Notes Exercises - Seated Passive Cervical Retraction - 1 x daily - 7 x weekly - 3 sets - 10 reps - Supine Transversus Abdominis Bracing - Hands on Ground - 1 x daily - 7 x weekly - 3 sets - 10 reps - Supine May - 1 x daily - 7 x weekly - 3 sets - 10 reps - Quadruped Pelvic Floor Contraction with Opposite Arm and Leg Lift - 1 x daily - 7 x weekly - 3 sets - 10 reps Normal [facility] CNPNon 05-19-2024 CNPN Telephone (FAMPOR) -------- CRYSTAL MACHUCA ([id number]) 1990 F Date Time Provider Department 05/19/24 JUDIE HOLLIDAY [facility] During your visit today, we recorded the following information about you: Sawyer Day MA 05/19/2024 1:45 PM Signed Items addressed in this encounter: Fax/Forms Gastro referral faxed to [facility] [phone] Faxed via RightFax, fax confirmation received Able to close encounter. Sawyer Day MA May 19, 2024 1:42 PM 1:42 PM Allergies As of Date: 05/19/2024 Noted Allergy Reaction AUGMENTIN (AMOXICILLIN-POT CLAVUL*04/01/2015 4 - Hives NORCO (HYDROCODONE-ACETAMINOPH EN) 04/01/2015 11 - Vomiting PENICILLIN 04/01/2015 4 - Hives TRAMADOL 04/01/2015 11 - Vomiting Date Reviewed: 05/14/2024 Reviewed by: Charlotte Bradley MA - Fully Assessed Reason for Visit: Gastro referral faxed to [facility] [Other] Prescriptions as of 05/19/2024 - QUEtiapine (SEROQUEL) 25 mg tablet Take 25 mg by mouth three times a day. - ferrous sulfate 325 mg (65 mg iron) tablet Take 1 tablet by mouth once daily. - Cholecalciferol, Vitamin D3, (VITAMIN D-3) 50 mcg (2,000 unit) cap Take 1 capsule by mouth once daily. - naproxen (NAPROSYN) 500 mg tablet Take 1 tablet by mouth two times a day as needed for pain. for pain. Take with food. - cyclobenzaprine (FLEXERIL) 10 mg tablet Take 1 tablet by mouth three times a day as needed for muscle spasm or pain. - FLUoxetine (PROZAC) 20 mg capsule Take 1 capsule by mouth every afternoon. - lithium carbonate 600 mg capsule Take 600 mg by mouth at bedtime as needed. - levothyroxine (SYNTHROID) 50 mcg tablet Take 50 mcg by mouth every morning. - SUBLOCADE 300 mg/1.5 mL injection Inject 300 mg subcutaneously once every month. - prazosin HCl (PRAZOSIN ORAL) Take 1 mg by mouth once daily. Problem List As Of Date 05/19/2024 Noted Resolved HRP (high risk ) [O09.90] 09/02/2023 Bipolar disorder (HCC) [F31.9] Patient noncompliance [Z91.199] 12/10/2022 Polysubstance dependence (HCC) [F19.20] 12/10/2022 Menometrorrhagia [N92.1] 12/10/2022 Vaginal bleeding affecting early [O20*09/14/2021 12/10/2022 complicated by subutex maintenance, a*12/10/2022 09/02/2023 Tobacco use disorder [F17.200] 01/07/2023 History of posttraumatic stress disorder (PTSD)*04/01/2023 M-Power Consult 06/12 [O99.891] 04/02/2023 09/02/2023 Anemia complicating , third trimester *05/03/2023 09/02/2023 Polyhydramnios in third trimester [O40.3XX0] 06/26/2023 09/02/2023 Supervision of other high risk pregnancies, thi*07/09/2023 09/02/2023 History of section [Z98.891] 09/02/2023 History of opioid abuse (HCC) [F11.11] 09/02/2023 Obesity, Class I, BMI 30-34.9 [E66.811] 04/14/2024 Obesity, Class II, BMI 35-39.9 [E66.812] 05/14/2024 Encounter Status:Closed by SAWYER DAY on 05/19/24 [facility] CNPN Telephone (digiSchoolPOR) -------- BRIGETTECRYSTAL Stefani ([id number]) 1990 F Date Time Provider Department 05/19/24 JUDIE HOLLIDAY [facility] During your visit today, we recorded the following information about you: Sawyer Day MA 05/19/2024 1:47 PM Signed Items addressed in this encounter: [employer] Encounter referral info given via [employer] Able to close encounter. Sawyer Day MA May 19, 2024 1:46 PM 1:46 PM Allergies As of Date: 05/19/2024 Noted Allergy Reaction AUGMENTIN (AMOXICILLIN-POT CLAVUL*04/01/2015 4 - Hives NORCO (HYDROCODONE-ACETAMINOPH EN) 04/01/2015 11 - Vomiting PENICILLIN 04/01/2015 4 - Hives TRAMADOL 04/01/2015 11 - Vomiting Date Reviewed: 05/14/2024 Reviewed by: Charlotte Bradley MA - Fully Assessed Reason for Visit: referral info given via [employer] [Other] Prescriptions as of 05/19/2024 - QUEtiapine (SEROQUEL) 25 mg tablet Take 25 mg by mouth three times a day. - ferrous sulfate 325 mg (65 mg iron) tablet Take 1 tablet by mouth once daily. - Cholecalciferol, Vitamin D3, (VITAMIN D-3) 50 mcg (2,000 unit) cap Take 1 capsule by mouth once daily. - naproxen (NAPROSYN) 500 mg tablet Take 1 tablet by mouth two times a day as needed for pain. for pain. Take with food. - cyclobenzaprine (FLEXERIL) 10 mg tablet Take 1 tablet by mouth three times a day as needed for muscle spasm or pain. - FLUoxetine (PROZAC) 20 mg capsule Take 1 capsule by mouth every afternoon. - lithium carbonate 600 mg capsule Take 600 mg by mouth at bedtime as needed. - levothyroxine (SYNTHROID) 50 mcg tablet Take 50 mcg by mouth every morning. - SUBLOCADE 300 mg/1.5 mL injection Inject 300 mg subcutaneously once every month. - prazosin HCl (PRAZOSIN ORAL) Take 1 mg by mouth once daily. Problem List As Of Date 05/19/2024 Noted Resolved HRP (high risk ) [O09.90] 09/02/2023 Bipolar disorder (HCC) [F31.9] Patient noncompliance [Z91.199] 12/10/2022 Polysubstance dependence (HCC) [F19.20] 12/10/2022 Menometrorrhagia [N92.1] 12/10/2022 Vaginal bleeding affecting early [O20*09/14/2021 12/10/2022 complicated by subutex maintenance, a*12/10/2022 09/02/2023 Tobacco use disorder [F17.200] 01/07/2023 History of posttraumatic stress disorder (PTSD)*04/01/2023 M-Power Consult 06/12 [O99.891] 04/02/2023 09/02/2023 Anemia complicating , third trimester *05/03/2023 09/02/2023 Polyhydramnios in third trimester [O40.3XX0] 06/26/2023 09/02/2023 Supervision of other high risk pregnancies, thi*07/09/2023 09/02/2023 History of section [Z98.891] 09/02/2023 History of opioid abuse (HCC) [F11.11] 09/02/2023 Obesity, Class I, BMI 30-34.9 [E66.811] 04/14/2024 Obesity, Class II, BMI 35-39.9 [E66.812] 05/14/2024 Encounter Status:Closed by SAWYER DAY on 05/19/24 [facility] [facility] HCV RNA NAKUL+probe Qnon 05-15 HBV surface Ag Ql (S) Negative Normal Negative [facility] Comment on above: Order Comment: Speci men Type: BLOOD SPECIMENOrdering Facility: [facility] Occup[facility] Exposure Address: [address] [address] Performed By: #### 1 1011-4 ####[facility] LABCLIA [id number] [place] [address] [place] HCV Ab Ql (S) Negative Normal Negative [facility] Comment on above: Order Comment: Speci men Type: BLOOD SPECIMENOrdering Facility: [facility] Occupational Health Exposure Address: [place] [address] Result Comment: The result suggests no evidence of active infection with Hepatitis C virus. Should recent infection be suspected, repeat testing may be considered 4-6 weeks after this draw. Performed By: #### 1 1011-4 ####[facility] LABCLIA [id number] [place] [address] [place] HIV 1 and 2 Ab IA.rapid Nom (S/P/Bld) Normal [facility] Comment on above: Order Comment: Speci men Type: BLOOD SPECIMENOrdering Facility: [facility] Occupational Health Exposure Address: [place] [address] Result Comment: Test not indicated. Performed By: #### 1 1011-4 ####[facility] LABCLIA [id number] [place] [address] [place] HIV 1+2 Ab+HIV1 p24 Ag IA Ql Non-Reactive Normal Nonreactive [facility] Comment on above: Order Comment: Speci men Type: BLOOD SPECIMENOrdering Facility: [facility] Occupational Health Exposure Address: [place] [address] Performed By: #### 1 1011-4 ####[facility] LABCLIA [id number] [place] [id number] [place] HIV immunoassay testing algorithm interpretation (S/P/Bld) [Interp] Normal [facility] Comment on above: Order Comment: Speci men Type: BLOOD SPECIMENOrdering Facility: [facility] Occupational Health Exposure Address: [place] [address] Result Comment: No e vidence of HIV-1 or HIV-2 infection. Should recent infection be suspected, repeat testing may be considered 2-3 weeks after this draw. [place] Rev. Code 3701.243(E): This information has been disclosed to you from confidential records protected from disclosure by state law. ???You shall make no further disclosure of this information without the specific, written, and informed release of the individual to whom it pertains or as otherwise permitted by state law. A general authorization for the release of medical or other information is not sufficient for the purpose of the release of HIV test results or diagnoses. Performed By: #### 1 1011-4 ####[facility] LABIA [id number] [place] [address] [place] HIV1+2 Ab Ser Qlon HIV 1+2 Ab Ql (S) Negative Normal Non-Reacti ve : Negative for both HIV1 and HIV2 antibodies. [facility] Comment on above: Order Comment: Speci men Type: BLOOD SPECIMENOrdering Facility: [facility] Occupational Health Exposure Address: [place] [address] Result Comment: A no n-reactive result does not preclude the possibility of exposure to HIV or infection with HIV. An antibody response to recent exposure may take several weeks to reach detectable levels with this assay. Performed by the [employer] Rapid HIV-1/2 Antibody Test. HIV Information: [place] Rev. Code 3701.243(E): This information has been disclosed to you from confidential records protected from disclosure by state law. You shall make no further disclosure of this information without the specific, written, and informed release of the individual to whom it pertains, or as otherwise permitted by state law. A general authorization for the release of medical or other information is not sufficient for the purpose of the release of HIV test results or diagnoses. Performed By: #### 7 918-6 ####[facility] LABIA [id number] [place] [address] [place] Nuclear Ab IA Ql (S)on 05-15 ALVARADO SCR QUAL Negative Normal Negative [facility] Comment on above: Order Comment: Speci men Type: BLOOD SPECIMENOrdering Facility: [facility] Address: [address] [place] [address] Result Comment: The qualitative antinuclear antibody screen test performed using the following antigens: dsDNA, Chromatin, Ribosomal P, SS-A 60, SS-A 52, SS-B, Sm, SmRNP, DAYCARE ASSISTANT A, DAYCARE ASSISTANT 68, Scl-70, Adrienne-1, and Centromere B. Methodology: Multiplex flow immunoassay. Performed By: #### 4 7383-5 ####[facility] LABCLIA [id number] [address] [facility] CNOVon 05-14-2024 CNOV Office Visit (FAMPOR ) -------- CRYSTAL MACHUCA ([id number]) 1990 F Date Time Provider Department 05/14/24 10:20 AM [facility] your visit today, we recorded the following information about you: Temperature Pulse Respiration Blood pressure 97.7 degrees 66/minute 16/minute 118/79 Weight Height 97.3 kg 1.651 m Judie Holliday MD 05/14/2024 11:42 AM Signed Subjective Crystal Machuca is a 33 year old female. Patient is here for follow-up and history and physical. Her lab work showed her iron within normal limits but at the lower end at 60. Lipid panel was unremarkable except her HDL was 34. Vitamin D was 30.4. Patient is doing fairly well except she states she has persistent pain and swelling. States this has been an ongoing issue and cannot give me an exact timeframe. No injury to the hands. She does not drink enough water from patient's description and she may be consuming months of sodium with her diet. She states that her fingers are tight when she goes to squeeze them. Patient states she has a history of colitis and was seeing a health promotion coordinator for this and persistent nausea. Has not seen them in 2 years. 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 She states she has an eye doctor and a dentist as well. Patient would like a flu shot today. Her review of systems are fairly unremarkable except for those noted. She is seeing Ortho for her back and is going to be scheduled for an MRI. Review of Systems Constitutional: Negative for activity change, appetite change, chills, diaphoresis, fatigue, fever and unexpected weight change. HENT: Negative for congestion, dental problem, drooling, ear discharge, ear pain, facial swelling, hearing loss, mouth sores, nosebleeds, postnasal drip, rhinorrhea, sinus pressure, sinus pain, sneezing, sore throat, tinnitus, trouble swallowing and voice change. Eyes: Negative for photophobia, pain, discharge, redness, itching and visual disturbance. Respiratory: Negative for apnea, cough, choking, chest tightness, shortness of breath, wheezing and stridor. Cardiovascular: Negative for chest pain, palpitations and leg swelling. Gastrointestinal: Negative for abdominal distention, abdominal pain, anal bleeding, blood in stool, constipation, diarrhea, nausea, rectal pain and vomiting. Endocrine: Negative for cold intolerance, heat intolerance, polydipsia, polyphagia and polyuria. Genitourinary: Negative for decreased urine volume, difficulty urinating, dyspareunia, dysuria, enuresis, flank pain, frequency, genital sores, hematuria, menstrual problem, pelvic pain, urgency, vaginal bleeding, vaginal discharge and vaginal pain. Musculoskeletal: Negative for arthralgias, back pain, gait problem, joint swelling, myalgias, neck pain and neck stiffness. Skin: Negative for color change, pallor, rash and wound. Allergic/Immunologic: Negative for environmental allergies, food allergies and immunocompromised state. Neurological: Negative for dizziness, tremors, seizures, syncope, facial asymmetry, speech difficulty, weakness, light-headedness, numbness and headaches. Hematological: Negative for adenopathy. Does not bruise/bleed easily. Psychiatric/Behavioral: Negative for agitation, behavioral problems, confusion, decreased concentration, dysphoric mood, hallucinations, self-injury, sleep disturbance and suicidal ideas. The patient is not nervous/anxious and is not hyperactive. Objective BP 118/79 (BP Site: Right Arm, BP Position: Sitting, BP Cuff Size: Large Adult) Pulse 66 Temp 36.5 ?C (97.7 ?F) (Temporal) Resp 16 Ht 165.1 cm (5' 5") Wt 97.3 kg (214 lb 6.4 oz) LMP 11/03/2023 (Exact Date) SpO2 99% BMI 35.68 kg/m? Physical Exam Vitals reviewed. Constitutional: General: She is not in acute distress. Appearance: Normal appearance. She is not ill-appearing, toxic-appearing or diaphoretic. HENT: Head: Normocephalic and atraumatic. Right Ear: Tympanic membrane, ear canal and external ear normal. There is no impacted cerumen. Left Ear: Tympanic membrane, ear canal and external ear normal. There is no impacted cerumen. Nose: Nose normal. No congestion or rhinorrhea. Mouth/Throat: Mouth: Mucous membranes are moist. Pharynx: Oropharynx is clear. No oropharyngeal exudate or posterior oropharyngeal erythema. Eyes: General: No scleral icterus. Right eye: No discharge. Left eye: No discharge. Extraocular Movements: Extraocular movements intact. Conjunctiva/sclera: Conjunctivae normal. Pupils: Pupils are equal, round, and reactive to light. Neck: Vascular: No carotid bruit. Cardiovascular: Rate and Rhythm: Normal rate and regular rhythm. Pulses: Normal pulses. Heart sounds: No murmur heard. No gallop. Pulmonary: Effort: Pulmonary ef (more content not included)... [facility] [place] Tele[facility] (MACK) -------- CRYSTAL MACHUCA ([id number]) 1990 F Date Time Provider Department 05/14/24 JUDIE HOLLIDAY During your visit today, we recorded the following information about you: Eleazar Botello 05/14/2024 10:49 AM Signed Work slip Allergies As of Date: 05/14/2024 Noted Allergy Reaction AUGMENTIN (AMOXICILLIN-POT CLAVUL*04/01/2015 4 - Hives NORCO (HYDROCODONE-ACETAMINOPH EN) 04/01/2015 11 - Vomiting PENICILLIN 04/01/2015 4 - Hives TRAMADOL 04/01/2015 11 - Vomiting Date Reviewed: 05/14/2024 Reviewed by: Charlotte Bradley MA - Fully Assessed Reason for Visit: Return To Work Letter [[id number]] Prescriptions as of 05/14/2024 - QUEtiapine (SEROQUEL) 25 mg tablet Take 25 mg by mouth three times a day. - ferrous sulfate 325 mg (65 mg iron) tablet Take 1 tablet by mouth once daily. - Cholecalciferol, Vitamin D3, (VITAMIN D-3) 50 mcg (2,000 unit) cap Take 1 capsule by mouth once daily. - naproxen (NAPROSYN) 500 mg tablet Take 1 tablet by mouth two times a day as needed for pain. for pain. Take with food. - cyclobenzaprine (FLEXERIL) 10 mg tablet Take 1 tablet by mouth three times a day as needed for muscle spasm or pain. - FLUoxetine (PROZAC) 20 mg capsule Take 1 capsule by mouth every afternoon. - lithium carbonate 600 mg capsule Take 600 mg by mouth at bedtime as needed. - levothyroxine (SYNTHROID) 50 mcg tablet Take 50 mcg by mouth every morning. - SUBLOCADE 300 mg/1.5 mL injection Inject 300 mg subcutaneously once every month. - prazosin HCl (PRAZOSIN ORAL) Take 1 mg by mouth once daily. Problem List As Of Date 05/14/2024 Noted Resolved HRP (high risk ) [O09.90] 09/02/2023 Bipolar disorder (HCC) [F31.9] Patient noncompliance [Z91.199] 12/10/2022 Polysubstance dependence (HCC) [F19.20] 12/10/2022 Menometrorrhagia [N92.1] 12/10/2022 Vaginal bleeding affecting early [O20*09/14/2021 12/10/2022 complicated by subutex maintenance, a*12/10/2022 09/02/2023 Tobacco use disorder [F17.200] 01/07/2023 History of posttraumatic stress disorder (PTSD)*04/01/2023 [employer] Consult 06/12 [O99.891] 04/02/2023 09/02/2023 Anemia complicating , third trimester *05/03/2023 09/02/2023 Polyhydramnios in third trimester [O40.3XX0] 06/26/2023 09/02/2023 Supervision of other high risk pregnancies, thi*07/09/2023 09/02/2023 History of section [Z98.891] 09/02/2023 History of opioid abuse (HCC) [F11.11] 09/02/2023 Obesity, Class I, BMI 30-34.9 [E66.811] 04/14/2024 Obesity, Class II, BMI 35-39.9 [E66.812] 05/14/2024 Letter Text Letter Text Encounter Status:Closed by ELEAZAR BOTELLO on 05/14/24 [facility] CNOVrama 05-01-2024 CNOV Office Visit (ORMMNC ) -------- CRYSTAL MACHUCA ([id number]) 1990 F Date Time Provider Department 05/01/24 10:30 AM MIKHAIL MCKEON [facility] During your visit today, we recorded the following information about you: Pulse Weight Height 51/minute 90.7 kg 1.651 m Sylvia Bansal MA 05/01/2024 11:15 AM Signed 33 y/o female patient here today for mid AND low back pain x 2 months. Patient states most of the time her back pain is just uncomfortable. X-ray completed. Mikhail Mckeon MD 05/01/2024 11:15 AM Signed Crystalstephanie Machuca is a 33 year old presenting with New and Pain of the Middle Back and New and Pain of the Lower Back HPI: Pt is here today for lower back pain for several years. No injury. Pain is ache. She does have radicular pain into the left leg. She is also complaining of upper back pain and left-sided neck pain. Pain radiates to left arm with tingling in hand. Review of Systems Constitutional: Negative for fever. Musculoskeletal: Positive for back pain and neck pain. Neurological: Positive for tingling and focal weakness (left upper and lower extremities.). PAST MEDICAL HISTORY Diagnosis Date Anorexia nervosa Asthma Bipolar disorder (HCC) Borderline personality disorder (HCC) Generalized anxiety disorder Headache High risk sexual behavior pt stopped B/C and she is on high risk antipsychotic medication HRP (high risk ) substance abuse/bipolardisorder/pe rsonality disorder Menometrorrhagia Nausea and vomiting Opioid dependence (HCC) on suboxone psych/addiction dr delarosa Patient noncompliance Polysubstance dependence (HCC) heroin, thc, opiates , cocaine Polysubstance dependence (HCC) Subjective visual disturbance Tobacco dependence syndrome FAMILY HISTORY Problem Relation Age of Onset No Known Problems Mother No Known Problems Father No Known Problems Brother No Known Problems Maternal Grandmother Cancer Maternal Grandfather Colon, lung, brain, throat cancer other (heart disease [Other]) Maternal Grandfather Breast Cancer Paternal Grandmother Diabetes Paternal Grandfather Hypertension Paternal Grandfather Hyperlipidemia Paternal Grandfather Tobacco Use: High Risk (05/01/2024) Patient History Smoking Tobacco Use: Every Day Smokeless Tobacco Use: Never Passive Exposure: Not on file Alcohol Use: No Current Outpatient Medications Medication Sig FLUoxetine (PROZAC) 20 mg capsule Take 1 capsule by mouth every afternoon. lithium carbonate 600 mg capsule Take 600 mg by mouth at bedtime as needed. levothyroxine (SYNTHROID) 50 mcg tablet Take 50 mcg by mouth every morning. SUBLOCADE 300 mg/1.5 mL injection Inject 300 mg subcutaneously once every month. prazosin HCl (PRAZOSIN ORAL) Take 1 mg by mouth once daily. No current facility-administered medications for this visit. ALLERGIES Allergen Reactions Augmentin [Amoxicil* Hives [place] [Hydrocodone-* Vomiting Penicillin Hives Tramadol Vomiting Pulse 51 Ht 5' 5" (1.65m) Wt 200 lb (90.7kg) SpO2 100% LMP 11/03/2023 BMI 33.28 kg/(m2). Physical Exam Constitutional: General: She is not in acute distress. Musculoskeletal: Comments: Patient has decreased flexion extension of the cervical spine. She has pain with cervical extension. She is tender left paracervical soft tissue and trapezius. She has 2+ triceps and biceps tendon reflexes equal bilateral. No focal weakness in the extremities. She does have some tenderness in the bilateral lumbar region. No midline bony tenderness. She has good flexion but some pain with lumbar extension. Neurovascular is intact distally. She has 5 out of 5 strength in the lower extremities. 1+ patella and Achilles reflexes equal bilateral. There is no focal neurologic deficits. X-rays of the lumbar spine showed some mild chronic changes of I do not see any acute bony abnormalities. X-rays of her thoracic spine showed no obvious bony abnormalities by my read. Her cervical spine showed straightening along with some disc narrowing around the C5-6 and C6-7 discs. Mild degenerative changes. Neurological: Mental Status: She is alert. Procedures ASSESSMENT/PLAN: 1. Upper back pain - ICD9: 724.5, ICD10: M54.9 (primary diagnosis) Patient's pain is more left upper back and cervical area. Thoracic spine films did not show anything significant. - XR THORACIC GENERAL 3V AP/LAT/SWIMMERS 2. Left-sided low back pain with left-sided sciatica, unspecified chronicity - ICD9: 724.3, ICD10: M54.42 Patient does have paralumbar pain with worse on the left side. She has some pain radiating into the left lower extremity. Questionable changes on her x-ray but awaiting official read. At this time I recommend physical therapy. I did prescribe her Naprosyn and Flexeril for symptomatic treatment. Would like to see her back in 6 weeks for recheck. If she is not improvin (more content not included)... Normal [facility] XR CERVICAL 4V AP/LAT/OBLon 05-01-2024 XR CERVICAL 4V AP/LAT/OBL * * *Final Report* * * DATE OF EXAM: May 01 2024 10:56AM [id number] [id number] - XR CERVICAL 4V AP/LAT/OBL / PROCEDURE REASON: Neck pain on left side * * * * Physician Interpretation * * * * XR CERVICAL 4V AP/LAT/OBL, XR THORACIC 3V AP/LAT/SWIMMERS, XR LUMBAR PARS 4V AP/LAT/OBL X2 Ordering Physician: MIKHAIL MCKEON CERVICAL SPINE SERIES 5 VIEWS Clinical Statement: Neck pain left side FINDINGS: Straightening of the cervical lordosis. Disc heights are preserved. No spondylolisthesis or prevertebral soft tissue swelling. The atlantoaxial relationship is normal. Minimal uncovertebral spurring at the C5-6 level bilaterally without significant osseous foraminal encroachment. The lung apices are clear. IMPRESSION: Straightening of the cervical lordosis which may be positional in nature or related to muscle spasm. No significant degenerative change THORACIC SPINE SERIES 3 VIEWS: INDICATION: Chronic back pain FINDINGS: No fractures. Normal alignment. No significant degenerative change. No paraspinal soft tissue swelling. IMPRESSION: No acute osseous abnormality or significant degenerative change LUMBAR SPINE SERIES 5 VIEWS: INDICATION: Left-sided low back pain. Sciatica. FINDINGS: Counting reference: Lumbosacral junction. For the purposes of this report, L4-5 is considered the level of the iliac crest and assumed there are 5 lumbar-type vertebra. Anatomic variant: None. No fractures. Straightening of the lumbar lordosis. Mild degenerative disc disease at L1-2 and L2-3 with disc space narrowing and early osteophyte formation. No spondylolysis or spondylolisthesis. The sacroiliac joints are grossly normal. IMPRESSION: Straightening of the lumbar lordosis with mild degenerative disc disease in the upper lumbar spine. No acute osseous abnormality. [employer]: [facility] Transcribe Date/Time: May 05 2024 4:19A Dictated by : KRISHNA DEAL MD This examination was interpreted and the report reviewed and electronically signed by: KRISHNA EDAL MD on May 05 2024 4:23AM EST [id number] [facility] XR LUMBAR PARS 4V AP/LAT/OBL X2on 05-01-2024 XR LUMBAR PARS 4V AP/LAT/OBL X2 * * *Final Report* * * DATE OF EXAM: May 01 2024 10:56AM [id number] [id number] - XR LUMBAR PARS 4V AP/LAT/OBL X2 / PROCEDURE REASON: Left-sided low back pain with left-sided sciatica, unspecified chronicity * * * * Physician Interpretation * * * * XR CERVICAL 4V AP/LAT/OBL, XR THORACIC 3V AP/LAT/SWIMMERS, XR LUMBAR PARS 4V AP/LAT/OBL X2 Ordering Physician: MIKHAIL MCKEON CERVICAL SPINE SERIES 5 VIEWS Clinical Statement: Neck pain left side FINDINGS: Straightening of the cervical lordosis. Disc heights are preserved. No spondylolisthesis or prevertebral soft tissue swelling. The atlantoaxial relationship is normal. Minimal uncovertebral spurring at the C5-6 level bilaterally without significant osseous foraminal encroachment. The lung apices are clear. IMPRESSION: Straightening of the cervical lordosis which may be positional in nature or related to muscle spasm. No significant degenerative change THORACIC SPINE SERIES 3 VIEWS: INDICATION: Chronic back pain FINDINGS: No fractures. Normal alignment. No significant degenerative change. No paraspinal soft tissue swelling. IMPRESSION: No acute osseous abnormality or significant degenerative change LUMBAR SPINE SERIES 5 VIEWS: INDICATION: Left-sided low back pain. Sciatica. FINDINGS: Counting reference: Lumbosacral junction. For the purposes of this report, L4-5 is considered the level of the iliac crest and assumed there are 5 lumbar-type vertebra. Anatomic variant: None. No fractures. Straightening of the lumbar lordosis. Mild degenerative disc disease at L1-2 and L2-3 with disc space narrowing and early osteophyte formation. No spondylolysis or spondylolisthesis. The sacroiliac joints are grossly normal. IMPRESSION: Straightening of the lumbar lordosis with mild degenerative disc disease in the upper lumbar spine. No acute osseous abnormality. [employer]: MARY Transcribe Date/Time: May 05 2024 4:19A Dictated by : KRISHNA DEAL MD This examination was interpreted and the report reviewed and electronically signed by: KRISHNA DEAL MD on May 05 2024 4:23AM EST [id number] [facility] XR THORACIC 3V AP/LAT/SWIMME RSon 05-01-2024 XR THORACIC 3V AP/LAT/SWIMMERS * * *Final Report* * * DATE OF EXAM: May 01 2024 10:56AM [id number] [id number] - XR THORACIC 3V AP/LAT/SWIMMERS / PROCEDURE REASON: Upper back pain * * * * Physician Interpretation * * * * XR CERVICAL 4V AP/LAT/OBL, XR THORACIC 3V AP/LAT/SWIMMERS, XR LUMBAR PARS 4V AP/LAT/OBL X2 Ordering Physician: MIKHAIL MCKEON CERVICAL SPINE SERIES 5 VIEWS Clinical Statement: Neck pain left side FINDINGS: Straightening of the cervical lordosis. Disc heights are preserved. No spondylolisthesis or prevertebral soft tissue swelling. The atlantoaxial relationship is normal. Minimal uncovertebral spurring at the C5-6 level bilaterally without significant osseous foraminal encroachment. The lung apices are clear. IMPRESSION: Straightening of the cervical lordosis which may be positional in nature or related to muscle spasm. No significant degenerative change THORACIC SPINE SERIES 3 VIEWS: INDICATION: Chronic back pain FINDINGS: No fractures. Normal alignment. No significant degenerative change. No paraspinal soft tissue swelling. IMPRESSION: No acute osseous abnormality or significant degenerative change LUMBAR SPINE SERIES 5 VIEWS: INDICATION: Left-sided low back pain. Sciatica. FINDINGS: Counting reference: Lumbosacral junction. For the purposes of this report, L4-5 is considered the level of the iliac crest and assumed there are 5 lumbar-type vertebra. Anatomic variant: None. No fractures. Straightening of the lumbar lordosis. Mild degenerative disc disease at L1-2 and L2-3 with disc space narrowing and early osteophyte formation. No spondylolysis or spondylolisthesis. The sacroiliac joints are grossly normal. IMPRESSION: Straightening of the lumbar lordosis with mild degenerative disc disease in the upper lumbar spine. No acute osseous abnormality. [employer]: MARY Transcribe Date/Time: May 05 2024 4:19A Dictated by : KRISHNA DEAL MD This examination was interpreted and the report reviewed and electronically signed by: KRISHNA DEAL MD on May 05 2024 4:23AM EST [id number] [facility] 25(OH)D3 [facility] 25-hydroxyvitamin D3 [Mass/Vol] 30.4 ng/mL Low 31.0-80.0 [facility] Comment on above: Order Comment: Speci men Type: BLOOD SPECIMENOrdering Facility: [facility] Address: [address] [place] [address] Performed By: #### 1 989-3 ####[facility] LABCLIA [id number] [facility] AVENUEDESK [id number] [address] [place] CBC W Auto Differential pane l (Bld)on 04-22-2024 Basophils (Bld) [#/Vol] 10*3/uL Normal <0.11 [facility] Comment on above: Order Comment: Speci men Type: BLOOD SPECIMENOrdering Facility: [facility] Address: [address] [place] [address] Performed By: #### 5 7021-8 ####[facility] [id number] [place] [address] [place] Basophils/100 WBC (Bld) 0.4 % Normal C [facility] Comment on above: Order Comment: Speci men Type: BLOOD SPECIMENOrdering Facility: [facility] Address: [address] [place] [address] Performed By: #### 5 7021-8 ####[facility] [id number] [place] [address] [place] Differential cell count method Nom (Bld) Auto Normal [facility] Comment on above: Order Comment: Speci men Type: BLOOD SPECIMENOrdering Facility: [facility] Address: [address] [place] [address] Performed By: #### 5 7021-8 ####[facility] [id number] [place] [address] [place] Eosinophils (Bld) [#/Vol] 0.26 10*3/uL Normal <0.46 [facility] Comment on above: Order Comment: Speci men Type: BLOOD SPECIMENOrdering Facility: [facility] Address: [address] [place] [address] Performed By: #### 5 7021-8 ####[facility] [id number] [place] [address] [place] Eosinophils/100 WBC (Bld) 4.6 % Normal [facility] Comment on above: Order Comment: Speci men Type: BLOOD SPECIMENOrdering Facility: [facility] Address: [address] [place] [address] Performed By: #### 5 7021-8 ####[facility] [id number] [place] [address] [place] Erythrocyte distribution width (RBC) [Ratio] 16.7 % High 11.5-15.0 [facility] Comment on above: Order Comment: Speci men Type: BLOOD SPECIMENOrdering Facility: [facility] Address: [address] [place] [address] Performed By: #### 5 7021-8 ####[facility] [id number] [place] [address] [place] Hematocrit (Bld) [Volume fraction] 37.0 % Normal 36.0-46.0 [facility] Comment on above: Order Comment: Speci men Type: BLOOD SPECIMENOrdering Facility: [facility] Address: [address] [place] [address] Performed By: #### 5 7021-8 ####[facility] [id number] [place] [address] [place] Hemoglobin (Bld) [Mass/Vol] 11.8 g/dL Normal 11.5-15.5 [facility] Comment on above: Order Comment: Speci men Type: BLOOD SPECIMENOrdering Facility: [facility] Address: [address] [place] [address] Performed By: #### 5 7021-8 ####[facility] [id number] [place] [address] [place] Immature granulocytes (Bld) [#/Vol] 10*3/uL Normal <0.10 [facility] Comment on above: Order Comment: Speci men Type: BLOOD SPECIMENOrdering Facility: [facility] Address: [address] [place] [address] Performed By: #### 5 7021-8 ####[facility] DSEWLALOLIA [id number] [place] [address] [place] Immature granulocytes/100 WBC (Bld) 0.4 % Normal [facility] Comment on above: Order Comment: Speci men Type: BLOOD SPECIMENOrdering Facility: [facility] Address: [address] [place] [address] Performed By: #### 5 7021-8 ####[facility]ALLALOL[facility] [id number] [place] [address] [place] Lymphocytes (Bld) [#/Vol] 2.02 10*3/uL Normal 1.00-4.00 [facility] Comment on above: Order Comment: Speci men Type: BLOOD SPECIMENOrdering Facility: [facility] Address: [address] [place] [address] Performed By: #### 5 7021-8 ####[facility]ALLALOL[facility] [id number] [place] [address] [place] Lymphocytes/100 WBC (Bld) 35.9 % Normal [facility] Comment on above: Order Comment: Speci men Type: BLOOD SPECIMENOrdering Facility: [facility] Address: [address] [place] [address] Performed By: #### 5 7021-8 ####[facility] [id number] [place] [address] [place] MCH (RBC) [Entitic mass] 27.5 pg Normal 26.0-34.0 [facility] Comment on above: Order Comment: Speci men Type: BLOOD SPECIMENOrdering Facility: [facility] Address: [address] [place] [address] Performed By: #### 5 7021-8 ####[facility] [id number] [place] [address] [place] MCHC (RBC) [Mass/Vol] 31.9 g/dL Normal 30.5-36.0 [facility] Comment on above: Order Comment: Speci men Type: BLOOD SPECIMENOrdering Facility: [facility] Address: [address] [place] [address] Performed By: #### 5 7021-8 ####[facility] [id number] [place] [address] [place] MCV (RBC) [Entitic vol] 86.2 fL Normal 80.0-100.0 C [facility] Comment on above: Order Comment: Speci men Type: BLOOD SPECIMENOrdering Facility: [facility] Address: [address] [place] [address] Performed By: #### 5 7021-8 ####[facility] [id number] [place] [address] [place] Monocytes (Bld) [#/Vol] 0.43 10*3/uL Normal <0.87 [facility] Comment on above: Order Comment: Speci men Type: BLOOD SPECIMENOrdering Facility: [facility] Address: [address] [place] [address] Performed By: #### 5 7021-8 ####[facility] [id number] [place] [address] [place] Monocytes/100 WBC (Bld) 7.6 % Normal C [facility] Comment on above: Order Comment: Speci men Type: BLOOD SPECIMENOrdering Facility: [facility] Address: [address] [place] [address] Performed By: #### 5 7021-8 ####[facility]ITALNCL[facility] [id number] [place] [address] [place] Neutrophils (Bld) [#/Vol] 2.88 10*3/uL Normal 1.45-7.50 [facility] Comment on above: Order Comment: Speci men Type: BLOOD SPECIMENOrdering Facility: [facility] Address: [address] [place] [address] Performed By: #### 5 7021-8 ####[facility] [id number] [place] [address] [place] Neutrophils/100 WBC (Bld) 51.1 % Normal [facility] Comment on above: Order Comment: Speci men Type: BLOOD SPECIMENOrdering Facility: [facility] Address: [address] [place] [address] Performed By: #### 5 7021-8 ####[facility] [id number] [place] [address] [place] Nucleated RBC (Bld) [#/Vol] 10*3/uL Normal <0.01 [facility] Comment on above: Order Comment: Speci men Type: BLOOD SPECIMENOrdering Facility: [facility] Address: [address] [place] [address] Performed By: #### 5 7021-8 ####[facility] [id number] [place] [address] [place] Nucleated RBC/100 WBC (Bld) [Ratio] 0.0 /100 WBC Normal [facility] Comment on above: Order Comment: Speci men Type: BLOOD SPECIMENOrdering Facility: [facility] Address: [address] [place] [address] Performed By: #### 5 7021-8 ####[facility] [id number] [place] [address] [place] Platelet mean volume (Bld) [Entitic vol] 11.1 fL Normal 9.0-12.7 [facility] Comment on above: Order Comment: Speci men Type: BLOOD SPECIMENOrdering Facility: [facility] Address: [address] [place] [address] Performed By: #### 5 7021-8 ####[facility] KODYNCMARISEL [id number] [place] [address] [place] Platelets (Bld) [#/Vol] 243 10*3/uL Normal 150-400 [facility] Comment on above: Order Comment: Speci men Type: BLOOD SPECIMENOrdering Facility: [facility] Address: [address] [place] [address] Performed By: #### 5 7021-8 ####[facility] GUILLERMOWEBSTERNCLIA [id number] [place] [address] [place] RBC (Bld) [#/Vol] 4.29 10*6/uL Normal 3.90-5.20 [facility] Comment on above: Order Comment: Speci men Type: BLOOD SPECIMENOrdering Facility: [facility] Address: [address] [place] [address] Performed By: #### 5 7021-8 ####[facility]ITALNCL[facility] [id number] [place] [address] [place] WBC (Bld) [#/Vol] 5.63 10*3/uL Normal 3.70-11.00 [facility] Comment on above: Order Comment: Speci men Type: BLOOD SPECIMENOrdering Facility: [facility] Address: [address] [place] [address] Performed By: #### 5 7021-8 ####[facility]ITALNCLIA [id number] [place] [address] [place] Comprehensive metabolic 2000 panelon 04-22-2024 Albumin [Mass/Vol] 4.4 g/dL Normal 3.9-4.9 [facility] Comment on above: Order Comment: Speci men Type: BLOOD SPECIMENOrdering Facility: [facility] Address: [address] [place], [place] [address] Performed By: #### 2 4323-8 ####[facility] MILLTOWNCLIA [id number] [place] [address] [place] ALP [Catalytic activity/Vol] 56 U/L Normal 34-123 [facility] Comment on above: Order Comment: Speci men Type: BLOOD SPECIMENOrdering Facility: [facility] Address: [address] [place] [address] Performed By: #### 2 4323-8 ####[facility] MILLTOWNCLIA [id number] [place] [address] [place] ALT [Catalytic activity/Vol] 11 U/L Normal 7-38 [facility] Comment on above: Order Comment: Speci men Type: BLOOD SPECIMENOrdering Facility: [facility] Address: [address] [place] [address] Performed By: #### 2 4323-8 ####[facility]ITALWNCLIA [id number] [place] [address] [place] Anion gap [Moles/Vol] 7 mmol/L Low 8-15 [facility] Comment on above: Order Comment: Speci men Type: BLOOD SPECIMENOrdering Facility: [facility] Address: [address] [place] [address] Performed By: #### 2 4323-8 ####[facility] MILLWNCLIA [id number] [place] [address] [place] AST [Catalytic activity/Vol] 19 U/L Normal 13-35 [facility] Comment on above: Order Comment: Speci men Type: BLOOD SPECIMENOrdering Facility: [facility] Address: [address] [place] [address] Performed By: #### 2 4323-8 ####[facility] MILLTOWNCLIA [id number] [place] [address] [place] Bilirubin [Mass/Vol] 0.4 mg/dL Normal 0.2-1.3 [facility] Comment on above: Order Comment: Speci men Type: BLOOD SPECIMENOrdering Facility: [facility] Address: [address] [place] [address] Performed By: #### 2 4323-8 ####[facility]ITALWNCLIA [id number] [place] [address] [place] Calcium [Mass/Vol] 9.6 mg/dL Normal 8.5-10.2 [facility] Comment on above: Order Comment: Speci men Type: BLOOD SPECIMENOrdering Facility: [facility] Address: [address] [place] [address] Performed By: #### 2 4323-8 ####[facility]ITALLIA [id number] [place] [address] [place] Chloride [Moles/Vol] 106 mmol/L Normal 98-107 [facility] Comment on above: Order Comment: Speci men Type: BLOOD SPECIMENOrdering Facility: [facility] Address: [address] [place] [address] Performed By: #### 2 4323-8 ####[facility]ITALL[facility] [id number] [place] [address] [place] CO2 [Moles/Vol] 26 mmol/L Normal 22-30 [facility] Comment on above: Order Comment: Speci men Type: BLOOD SPECIMENOrdering Facility: [facility] Address: [address] [place], [place] [address] Performed By: #### 2 4323-8 ####[facility] [id number] [place] [address] [place] Creatinine [Mass/Vol] 0.75 mg/dL Normal 0.58-0.96 [facility] Comment on above: Order Comment: Speci men Type: BLOOD SPECIMENOrdering Facility: [facility] Address: [address] [place] [address] Performed By: #### 2 4323-8 ####[facility] [id number] [place] [address] [place] Creatinine and Glomerular filtration rate.predicted panel (S/P/Bld) 109 mL/min/1.73m??? Normal >=60 [facility] Comment on above: Order Comment: Nusrat morgan Type: BLOOD SPECIMENOrdering Facility: [facility] Address: [address] [place] [address] Result Comment: Afia mated Glomerular Filtration Rate (eGFR) is calculated using the 2020 CKD-EPI creatinine equation. This equation utilizes serum creatinine, sex, and age as parameters. The creatinine assay has traceable calibration to isotope dilution-mass spectrometry. Refer to KDIGO guidelines for clinical interpretation. In patients with unstable renal function, e.g. those with acute kidney injury, the eGFR may not accurately reflect actual GFR. Performed By: #### 2 4323-8 ####[facility] [id number] [place] [address] [place] Glucose [Mass/Vol] 94 mg/dL Normal 74-99 [facility] Comment on above: Order Comment: Nusrat morgan Type: BLOOD SPECIMENOrdering Facility: [facility] Address: [address] [place] [address] Result Comment: The [place] Diabetes Association (ADA) provides guidance for cutoff values for fasting glucose and random glucose. The ADA defines fasting as no caloric intake for at least 8 hours. Fasting plasma glucose results between 100 to 125 mg/dL indicate increased risk for diabetes (prediabetes). Fasting plasma glucose results greater than or equal to 126 mg/dL meet the criteria for diagnosis of diabetes. In the absence of unequivocal hyperglycemia, results should be confirmed by repeat testing. In a patient with classic symptoms of hyperglycemia or hyperglycemic crisis, random plasma glucose results greater than or equal to 200 mg/dL meet the criteria for diagnosis of diabetes. Reference: Standards of Medical Care in Diabetes 2016, [place] Diabetes Association. Diabetes Care. 2016.39(Suppl 1). Performed By: #### 2 4323-8 ####[facility] MILLTOWNCLIA [id number] [place] [address] [place] Potassium [Moles/Vol] 3.9 mmol/L Normal 3.7-5.1 [facility] Comment on above: Order Comment: Speci men Type: BLOOD SPECIMENOrdering Facility: [facility] Address: [address] [place] [address] Performed By: #### 2 4323-8 ####[facility] MILLWNCLIA [id number] [place] [address] [place] Protein [Mass/Vol] 7.1 g/dL Normal 6.3-8.0 [facility] Comment on above: Order Comment: Speci men Type: BLOOD SPECIMENOrdering Facility: [facility] Address: [address] [place] [address] Performed By: #### 2 4323-8 ####[facility]ITALLIA [id number] [place] [address] [place] Sodium [Moles/Vol] 139 mmol/L Normal 136-144 [facility] Comment on above: Order Comment: Speci men Type: BLOOD SPECIMENOrdering Facility: [facility] Address: [address] [place] [address] Performed By: #### 2 4323-8 ####[facility] MILLMARYAWNCLIA [id number] [place] [address] [place] Urea nitrogen [Mass/Vol] 15 mg/dL Normal 7-21 [facility] Comment on above: Order Comment: Speci men Type: BLOOD SPECIMENOrdering Facility: [facility] Address: [address] [place] [address] Performed By: #### 2 4323-8 ####[facility]ITALWNCLIA [id number] [place] [address] [place] Ferritin SerPl-mCncon 2024 Ferritin [Mass/Vol] 16.0 ng/mL Normal 14.7-205.1 [facility] Comment on above: Order Comment: Nusrat morgan Type: BLOOD SPECIMENOrdering Facility: [facility] Address: [address] [place] [address] Performed By: #### 5 0190-8, 2276-4, 46614-5 ####[facility] LABCLIA [id number] [place] [address] [place] HbA1c (Bld)on 04-22-2024 Average glucose Estimated from glycated hemoglobin (Bld) [Mass/Vol] 85 mg/dL Normal [facility] Comment on above: Order Comment: Nusrat morgan Type: BLOOD SPECIMENOrdering Facility: [facility] Address: [address] [place] [address] Result Comment: eAG: (Estimated average glucose) is a calculated value from HgbA1c and is front desk representative of the average blood glucose level in the last 2-3 month period. Performed By: #### 5 5454-3 ####[facility] LABCLIA [id number] [place] [address] [place] HbA1c (Bld) [Mass fraction] 4.6 % Normal 4.3-5.6 [facility] Comment on above: Order Comment: Nusrat morgan Type: BLOOD SPECIMENOrdering Facility: [facility] Address: [address] [place] [address] Result Comment: [place] Diabetes Association guidelines indicate that patients with HgbA1c in the range 5.7-6.4% are at increased risk for development of diabetes, and intervention by lifestyle modification may be beneficial. HgbA1c greater or equal to 6.5% is considered diagnostic of diabetes. Performed By: #### 5 5454-3 ####[facility] LABCLIA [id number] [place] [address] [place] Iron and Iron binding capaci ty panelon 04-22-2024 Iron [Mass/Vol] 60 ug/dL Normal 41-186 [facility] Comment on above: Order Comment: Speci men Type: BLOOD SPECIMENOrdering Facility: [facility] Address: [address] [place] [address] Performed By: #### 5 0190-8, 6-4, 24697-4 ####[facility] LABCLIA [id number] [place] [address] [place] Iron binding capacity [Mass/Vol] 393 ug/dL High 232-386 [facility] Comment on above: Order Comment: Speci men Type: BLOOD SPECIMENOrdering Facility: [facility] Address: [address] [place] [address] Performed By: #### 5 0190-8, 2275-4, 89687-3 ####[facility] LABCLIA [id number] [place] [address] [place] Iron/TIBC [Molar ratio] 15.3 % Normal 15.0-57.0 [facility] Comment on above: Order Comment: Speci men Type: BLOOD SPECIMENOrdering Facility: [facility] Address: [address] [place] [address] Performed By: #### 5 0190-8, 2275-4, 72110-8 ####[facility] LABCLIA [id number] [place] [address] [place] Lipid 1996 panelon 5 Cholesterol [Mass/Vol] 150 mg/dL Normal <200 [facility] Comment on above: Order Comment: Speci men Type: BLOOD SPECIMENOrdering Facility: [facility] Address: [address] [place] [address] Result Comment: <200 mg/dL, Desirable 200-239 mg/dL, Borderline high >239 mg/dL, High Performed By: #### 3 016-3, 3024-7, 3051-0 ####[facility] LABCLIA [id number] [place] [address] [place]#### 79731-1 ####[facility] LABCLIA [id number] [address] [id number] [place] [address] [place] Cholesterol in HDL [Mass/Vol] 34 mg/dL Low >39 [facility] Comment on above: Order Comment: Speci men Type: BLOOD SPECIMENOrdering Facility: [facility] Address: [address] [place] [address] Result Comment: 40-5 9 mg/dL, Acceptable >59 mg/dL, High: Negative risk factor for coronary heart disease <40 mg/dL, Low: Positive risk factor for coronary heart disease Performed By: #### 3 016-3, 3024-7, 3051-0 ####[facility] LABCLIA [id number] [place] [address] [place]#### 27835-2 ####[facility] LABCLIA [id number] [address] [id number] [place] [address] [place] Cholesterol in LDL [Mass/Vol] 103 mg/dL High <100 [facility] Comment on above: Order Comment: Speci men Type: BLOOD SPECIMENOrdering Facility: [facility] Address: [address] [place] [address] Result Comment: <100 mg/dL, Optimal 100-129 mg/dL, Near optimal/above optimal 130-159 mg/dL, Borderline high 160-189 mg/dL, High >189 mg/dL, Very high Secondary prevention optimal LDL Cholesterol levels are recommended to be < 70 mg/dL Performed By: #### 3 016-3, 3024-7, 3051-0 ####[facility] LABCLIA [id number] [place] [address] [place]#### 25485-5 ####[facility] LABCLIA [id number] [address] [id number] [place] [address] [place] Cholesterol in LDL/Cholesterol in HDL [Mass ratio] 3.03 {ratio} High <2.54 [facility] Comment on above: Order Comment: Speci men Type: BLOOD SPECIMENOrdering Facility: [facility] Address: [address] [place] [address] Result Comment: Refe nancy: 1. National Cholesterol Education Program ATP III Guideline At-A-Glance Quick Desk Reference: National Heart, Lung, and Blood [place]. National Institutes of Health. 2001: NIH Publication No. 01-3305. 2. An International Atherosclerosis Society position paper: global recommendations for the management of dyslipidemia: executive summary, Atherosclerosis. 2014: 232(2):410-413. Performed By: #### 3 016-3, 3023-09, 0 ####[facility] LABCLIA [id number] [place] [address] [place]#### 12406-3 ####[facility] LABCLIA [id number] [address] [id number] [place] [address] [place] Cholesterol in VLDL [Mass/Vol] 13 mg/dL Normal <30 [facility] Comment on above: Order Comment: Speci men Type: BLOOD SPECIMENOrdering Facility: [facility] Address: [address] [place] [address] Performed By: #### 3 016-3, 7, 305-0 ####[facility] LABCLIA [id number] [place] [address] [place]#### 28269-8 ####[facility] LABCLIA [id number] [address] [id number] [address] [place] Cholesterol non HDL [Mass/Vol] 116 mg/dL Normal <130 [facility] Comment on above: Order Comment: Speci men Type: BLOOD SPECIMENOrdering Facility: [facility] Address: [address] [place] [address] Result Comment: <130 mg/dL, Optimal 130-159 mg/dL, Near optimal/above optimal 160-189 mg/dL, Borderline high 190-219 mg/dL, High >219 mg/dL, Very high Secondary prevention optimal non HDL Cholesterol levels are recommended to be <100 mg/dL Performed By: #### 3 016-3, 3024-7, 3051-0 ####[facility] LABCLIA [id number] [place] [address] [place]#### 71287-1 ####[facility] LABCLIA [id number] [address] [id number] [address] [place] Cholesterol.total/Mayra sterol in HDL [Mass ratio] 4.41 {ratio} Normal <5.10 [facility] Comment on above: Order Comment: Speci men Type: BLOOD SPECIMENOrdering Facility: [facility] Address: [address] [place] [id number] Performed By: #### 3 016-3, 3024-7, 3051-0 ####[facility] LABCLIA [id number] [place] [address] [place]#### 51764-4 ####[facility] LABCLIA [id number] [address] [id number] [place] [address] [place] FASTING TIME 12 hrs Normal [facility] Comment on above: Order Comment: Speci men Type: BLOOD SPECIMENOrdering Facility: [facility] Address: [address] [place] [address] Performed By: #### 3 016-3, 3024-7, 305-0 ####[facility] LABCLIA [id number] [place] [address] [place]#### [id number] ####[facility] LABCLIA [id number] [place] [address] [place] [facility] [id number] [place] [address] [place] Triglyceride [Mass/Vol] 65 mg/dL Normal <150 C [facility] Comment on above: Order Comment: Speci men Type: BLOOD SPECIMENOrdering Facility: [facility] Address: [address] [place] [address] Result Comment: <150 mg/dL, Normal 150-199 mg/dL, Borderline high 200-499 mg/dL, High >499 mg/dL, Very high Performed By: #### 3 016-3, 7, 305-0 ####[facility] LABCLIA [id number] [place] [address] [place]#### 49918-1 ####[facility] LABCLIA [id number] [place] [address] [place] [facility] [id number] [place] [address] [place] Davey, Bld SerPl-sCncon Davey [Moles/Vol] 0.4 mmol/L Low 0.6-1.2 [facility] Comment on above: Order Comment: Speci men Type: BLOOD SPECIMENOrdering Facility: [facility] Address: ATTN: LABORATORY, [place] [address] Result Comment: Refe rence ranges and high/low indicator flags are provided as general guidelines only. The treating physician must determine appropriate target levels/dosing based on the specific clinical situation. Performed By: #### 5 0190-8, 2276-4, 49110-0 ####[facility] LABCLIA [id number] [address] [place] T3Free SerPl-mCncon 04-22-19 25 Free T3 [Mass/Vol] 3.0 pg/mL Normal 2.3-4.1 [facility] Comment on above: Order Comment: Speci men Type: BLOOD SPECIMENOrdering Facility: [facility] Address: ATTN: LABORATORY, [place] [address] Performed By: #### 3 016-3, 7, 305-0 ####[facility] LABCLIA [id number] [place] [address] [place]#### 83384-0 ####[facility] LABCLIA [id number] [place] [address] [place] [facility] [id number] [place] [address] [place] T4 Free SerPl-mCncon 025 Free T4 [Mass/Vol] 1.1 ng/dL Normal 0.9-1.7 [facility] Comment on above: Order Comment: Speci men Type: BLOOD SPECIMENOrdering Facility: [facility] Address: ATTN: LABORATORY, [place] [address] Performed By: #### 3 016-3, 3027, 305-0 ####[facility] LABCLIA [id number] [place] [address] [place]#### 75380-9 ####[facility] LABCLIA [id number] [address] [facility] [address] [id number] [place] [address] [place] TSH SerPl-aCncon 04-22-2024 TSH Qn 0.681 m[IU]/L Normal 0.270-4.200 [facility] Comment on above: Order Comment: Speci men Type: BLOOD SPECIMENOrdering Facility: [facility] Address: ATTN: LABORATORY, [place] [address] Result Comment: If t he patient is , TSH reference range varies by gestational period: First Trimester (weeks 9-12): 0.180-2.990 mIU/L Second Trimester: 0.110-3.980 mIU/L Third Trimester: 0.480-4.710 mIU/L Thomas Hinojosa et al. A Practical Approach for the Verifications and Determination of Site- and Trimester-Specific Reference Intervals for Thyroid Function tests in . Thyroid, 2019:29:3:412-420. Tin Montelongo, et al. 2017 Guidelines of the [place] Thyroid Association for the Diagnosis and Management of Thyroid Disease during and the . Thyroid, 2017:27:3:315-389. Performed By: #### 3 016-3, 3024-7, 3051-0 ####[facility] LABIA [id number] [place] [address] [place]#### 73193-5 ####[facility] LABIA [id number] [address] [id number] [place] [address] [place] CNOVon 04-14-2024 CNOV Office Visit (FAMPOR ) -------- CRYSTAL MACHUCA ([id number]) 1990 F Date Time Provider Department 04/14/24 10:20 AM JUDIE HOLLIDAY During your visit today, we recorded the following information about you: Temperature Pulse Respiration Blood pressure 97.6 degrees 64/minute 16/minute 122/80 Weight Height 94 kg 1.651 m Judie Holliday MD 04/14/2024 11:16 AM Signed Subjective Crystal Machuca is a 33 year old female. Patient is here to become established with a chief complaint of back pain. She states that she has pain at the upper back on the left side/trapezius that radiates to her left arm. She experiences tingling periodically down the left arm. She states is hard to extend her head back as there is tension in her upper back and neck. She also states that the pain radiates down to her left low back and even into her leg. She has not had this evaluated before. She states has been going on for 2 months with no known injury. She states she is currently not working and caring for her 9-month-old. No chest pain or shortness of breath. Remaining review of systems are unremarkable. Patient sees behavioral health for her medications. She states they are managing her thyroid as well Discussed my way of practice with patient concerning compliance, yearly exams, medication refill policy (medications given from appointment to appointment; no refills on emergency line or after hours), no intermittent FMLAs or disability forms, no controlled substances and use of portal. Also informed patient to arrive 15 minutes prior to scheduled appointment so that they may be seen at the time of the appointment. Patient states she understands these points and wishes to confirm professional relationship with none of these being an issue. Review of Systems Constitutional: Negative for appetite change, chills, diaphoresis, fatigue and fever. HENT: Negative for congestion, dental problem, ear pain, hearing loss, mouth sores, postnasal drip, sore throat and trouble swallowing. Eyes: Negative for pain, discharge, redness, itching and visual disturbance. Respiratory: Negative for cough, chest tightness, shortness of breath and wheezing. Cardiovascular: Negative for chest pain, palpitations and leg swelling. Gastrointestinal: Negative for abdominal distention, abdominal pain, blood in stool, constipation, diarrhea, nausea and vomiting. Endocrine: Negative. Genitourinary: Negative for difficulty urinating, dyspareunia, dysuria, flank pain, frequency, hematuria, pelvic pain, urgency, vaginal bleeding, vaginal discharge and vaginal pain. Musculoskeletal: Negative for arthralgias, back pain, gait problem, joint swelling, myalgias and neck pain. Skin: Negative for color change, rash and wound. Neurological: Negative for dizziness, weakness, light-headedness, numbness and headaches. Hematological: Negative. Negative for adenopathy. Does not bruise/bleed easily. Psychiatric/Behavioral: Negative for agitation, confusion, hallucinations, sleep disturbance and suicidal ideas. The patient is not nervous/anxious. Objective BP 122/80 (BP Site: Right Arm, BP Position: Sitting, BP Cuff Size: Large Adult) Pulse 64 Temp 36.4 ?C (97.6 ?F) Resp 16 Ht 165.1 cm (5' 5") Wt 94 kg (207 lb 3.2 oz) LMP 11/03/2023 (Exact Date) SpO2 99% BMI 34.48 kg/m? Physical Exam Vitals reviewed. Constitutional: General: She is not in acute distress. Appearance: Normal appearance. She is not ill-appearing, toxic-appearing or diaphoretic. HENT: Head: Normocephalic and atraumatic. Right Ear: Tympanic membrane, ear canal and external ear normal. There is no impacted cerumen. Left Ear: Tympanic membrane, ear canal and external ear normal. There is no impacted cerumen. Nose: Nose normal. No congestion or rhinorrhea. Mouth/Throat: Mouth: Mucous membranes are moist. Pharynx: Oropharynx is clear. No oropharyngeal exudate or posterior oropharyngeal erythema. Eyes: General: No scleral icterus. Right eye: No discharge. Left eye: No discharge. Extraocular Movements: Extraocular movements intact. Conjunctiva/sclera: Conjunctivae normal. Pupils: Pupils are equal, round, and reactive to light. Neck: Vascular: No carotid bruit. Cardiovascular: Rate and Rhythm: Normal rate and regular rhythm. Pulses: Normal pulses. Heart sounds: No murmur heard. No gallop. Pulmonary: Effort: Pulmonary effort is normal. No respiratory distress. Breath sounds: Normal breath sounds. No stridor. No wheezing, rhonchi or rales. Chest: Chest wall: No tenderness. Abdominal: General: Abdomen is flat. Bowel sounds are normal. There is no distension. Palpations: Abdomen is soft. There is no mass. Tenderness: There is no abdominal tenderness. There is no right CVA tenderness, left CVA tenderness, guarding or rebound. Her (more content not included)... 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 Allergies amoxicillin (From Augmentin) Allergy (Intermediate, Verified 03/04/24 10:33) Hives clavulanic acid (From Augmentin) Allergy (Intermediate, Verified 03/04/24 10:33) Hives penicillin G Allergy (Intermediate, Verified 03/04/24 10:33) Hives Office Procedures [facility] Billing Sheet Testing Breath Alcohol Test Pre-Employment: Yes Pre-Employment Drug Screen: Yes Pre-Employment PE: Yes 03/09/24 0619 Date Emma RUTH Cosigner Signature: Date (if applicable) CC: Normal [facility] Urgent Care Visit Reporton 1 05-05-2023 Urgent Care Visit Report [facility] [address], [address] [place] [address] OFFICE VISIT Date of Service: 03/04/24 MR#: [id number] Acct: [id number] Name: CRYSTAL MACHUCA Rep #: [id number] : 1990 Provider: FLORY Solorio Age/Sex: 33/F Location: [facility] Status: Signed Intake Vital Signs 08/28/23 16:51 03/04/24 10:32 Height 5 ft 5 in 5 ft 5 in Intake Visit 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 Allergies amoxicillin (From Augmentin) Allergy (Intermediate, Verified 03/04/24 10:33) Hives clavulanic acid (From Augmentin) Allergy (Intermediate, Verified 03/04/24 10:33) Hives penicillin G Allergy (Intermediate, Verified 03/04/24 10:33) Hives PFSH Medical History Nausea vomiting and diarrhea Physical exam, pre-employment Wears glasses MRSA infection Bipolar disorder Smoker Lymphocytic colitis Anxiety PTSD (post-traumatic stress disorder) Depression Bipolar 2 disorder Hx MRSA infection Hepatitis B Tumors Recurrent infections Drug abuse Hx: UTI (urinary tract infection) Hx of fracture Asthma Anemia Allergies Alcohol abuse Surgical History (Updated 03/04/24 @ 10:37 by Thalia Welch MA) Hx of section History of tonsillectomy and adenoidectomy Carver teeth removed Family History Mother Anemia Cancer cervical/ovarian Grandmother Asthma Breast cancer Parkinsons Poor mental health Father Arthritis Bowel disease colitis Grandfather Colon cancer Diabetes Other Anxiety Social History household members: other details: 180 treatment program current occupational status: unemployed Smoking Status: Current every day smoker tobacco type: cigarettes Electronic Cigarette Use: not used alcohol intake: former year quit: 2014 substance use type: marijuana and crack/cocaine what type of physical activity do you participate in: yoga do you feel safe at home: Yes HPI HPI Details: CRYSTAL MACHUCA, is a 33 F who presents to the office today for initial evaluation proximately 24-hour history of nausea vomiting and diarrhea, with nausea and vomiting being the most concerning for her. No complaints of fever, chills, sweats, lightheadedness/dizzines s. No complaints of chest pressure or shortness of breath or dyspnea on exertion. No new food/fluid exposures that she is aware of. No kdbq-hbb-yefynwe products taken to assist. No other associated symptoms and no other alleviating/aggravating factors. ROS Const Constitutional: No other (As above) Exam Const General: cooperative, healthy appearing and no acute distress Orientation: alert and awake [facility] Head: normal to inspection Ears: hearing grossly normal bilaterally, external ears normal, TM's normal bilaterally and EAC's normal Nose: external nose normal, nares normal, septum normal and no nasal discharge Face and sinus: normal facial exam, sinuses nontender and face symmetric Mouth: oral mucosae normal, lip normal, tongue normal, oropharynx normal and moist mucous membranes Throat: posterior oropharynx normal, tonsils normal, uvula midline and no postnasal drainage Eyes General: appearance normal, both eyes and all related structures Neck Neck: normal visual inspection, full ROM, no lymphadenopathy, no meningeal signs and supple Neck mass: No Thyroid: thyroid normal Lymphatic: no lymphadenopathy noted Chest Chest palpation inspection: normal inspection of the chest Resp Effort Inspection: normal respiratory effort and able to speak in complete sentences Auscultation: Bilateral: Clear to Auscultation Cardio Palpation: normal PMI Rate: regular rate Rhythm: regular rhythm Heart Sounds: S1 normal, S2 normal, no gallops, no murmurs and no rubs Pulses: radial pulses present GI Inspection: normal to inspection Palpation: soft, no hepatosplenomegaly, not firm, no guarding and tender (Mild generalized throughout) not at McBurney's point, Roberson's sign negative and with no rebound tenderness General: No CVA tenderness Skin General: no rashes or lesions noted Neuro General: patient alert, patient awake and patient oriented x3 Cognition: normal cognition Speech: speech normal Psych Appearance: grossly normal Mental Status: mental status grossly normal Mood: congruent mood Affect: normal affect Speech and Movement: speech and movement normal Attitude: cooperative Office Procedures Physical Exam Coding PE Coding Pre-employment PE: Yes Coding Level of Care Code Off vis,new,level 3 Diagnoses Nausea vomiting and diarrhea R11.2; R19.7 Assessment and Plan Assessment and Plan (1) Nausea vomiting and diarrhea: Status: Acute Plan: Zofran as prescribed today. Supportive measures a (more content not included)... 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 Allergies amoxicillin (From Augmentin) Allergy (Intermediate, Verified 03/04/24 10:33) Hives clavulanic acid (From Augmentin) Allergy (Intermediate, Verified 03/04/24 10:33) Hives penicillin G Allergy (Intermediate, Verified 03/04/24 10:33) Hives PFSH Medical History Physical exam, pre-employment Wears glasses MRSA infection Bipolar disorder Smoker Lymphocytic colitis Anxiety PTSD (post-traumatic stress disorder) Depression Bipolar 2 disorder Hx MRSA infection Hepatitis B Tumors Recurrent infections Drug abuse Hx: UTI (urinary tract infection) Hx of fracture Asthma Anemia Allergies Alcohol abuse Surgical History (Updated 03/04/24 @ 10:37 by Thalia Welch MA) Hx of section History of tonsillectomy and adenoidectomy Carver teeth removed Family History Mother Anemia Cancer cervical/ovarian Grandmother Asthma Breast cancer Parkinsons Poor mental health Father Arthritis Bowel disease colitis Grandfather Colon cancer Diabetes Other Anxiety Social History household members: other details: 180 treatment program current occupational status: unemployed Smoking Status: Current every day smoker tobacco type: cigarettes Electronic Cigarette Use: not used alcohol intake: former year quit: 2014 substance use type: marijuana and crack/cocaine what type of physical activity do you participate in: yoga do you feel safe at home: Yes HPI HPI Details: CRYSTAL MACHUCA, is a 33 F who presents to the office today for Office Procedures Physical Exam Coding PE Coding Pre-employment PE: Yes Coding Level of Care Code No Charge Diagnoses Physical exam, pre-employment Z02.1 Assessment and Plan Assessment and Plan (1) Physical exam, pre-employment: Status: Acute 03/04/24 1157 Date Emma Wells PA PA Jose Digner Signature: Date (if applicable) CC: Normal [facility] XR Chest PA and Lateralon IMPRESSION: No active disease in the chest. [employer]: MARY Transcribe Date/Time: Nov 26 2023 6:34P Dictated by : ANA AVILES MD This examination was interpreted and the report reviewed and electronically signed by: ANA AVILES MD on Nov 26 2023 6:35PM [facility] DIVISION OF RADIOLOGY * * *Final Report* * * DATE OF EXAM: Nov 26 2023 6:27PM WOX [id number] - XR CHEST 2V FRONTAL/LAT / PROCEDURE REASON: Subacute cough * * * * Physician Interpretation * * * * CHEST X-RAY CLINICAL HISTORY: Subacute cough, 1 month TECHNIQUE: Upright frontal and lateral views. COMPARISON: 01/27/2013 RESULT: Heart/mediastinum: Within normal limits. Lungs/pleura: Clear. No infiltrate, edema or pleural effusion. Bones/soft tissues: Unremarkable. Lines/tubes/devices: None visualized. DIVISION OF RADIOLOGY Provider, [facility] - 11/26/2023 * * *Final Report* * * DATE OF EXAM: Nov 26 2023 6:27PM WOX [id number] - XR CHEST 2V FRONTAL/LAT / PROCEDURE REASON: Subacute cough * * * * Physician Interpretation * * * * CHEST X-RAY CLINICAL HISTORY: Subacute cough, 1 month TECHNIQUE: Upright frontal and lateral views. COMPARISON: 01/27/2013 RESULT: Heart/mediastinum: Within normal limits. Lungs/pleura: Clear. No infiltrate, edema or pleural effusion. Bones/soft tissues: Unremarkable. Lines/tubes/devices: None visualized. IMPRESSION IMPRESSION: No active disease in the chest. [employer]: PSCB Transcribe Date/Time: Nov 26 2023 6:34P Dictated by : ANA AVILES MD This examination was interpreted and the report reviewed and electronically signed by: ANA AVILES MD on Nov 26 2023 6:35PM EST [facility] Radiology Study observation (narrative) Luna garcia [facility] XR Chest PA and LateralOrder ed By: Ccf Provider on 11-26-2023 [facility] LITHIUMon 09-03-2023 Davey [Moles/Vol] 0.4 mmol/L Low 0.6 - 1. 2 mmol/L [facility] Comment on above: Reference ranges and high/low indicator flags are provided as general guidelines only. The treating physician must determine appropriate target levels/dosing based on the specific clinical situation. Davey [Moles/Vol]on 2023 Interpretation and review of laboratory results Abnormal [facility] THYROID STIMULATING HORMONEo n 09-03-2023 TSH Qn 3.800 m[IU]/L [facility] Comment on above: If the patient is pr egnant, TSH reference range varies by gestational period: First Trimester (weeks 9-12): 0.180-2.990 mIU/L Second Trimester: 0.110-3.980 mIU/L Third Trimester: 0.480-4.710 mIU/L Thomas Hinojosa, et al. A Practical Approach for the Verifications and Determination of Site- and Trimester-Specific Reference Intervals for Thyroid Function tests in . Thyroid, 2019:29:3:412-420. Tin Montelongo, et al. 2017 Guidelines of the [place] Thyroid Association for the Diagnosis and Management of Thyroid Disease during and the . Thyroid, 2017:27:3:315-389. TSH Qnon 09-03-2023 Interpretation and review of laboratory results Normal [facility] Basic metabolic 2000 panelOr dered By: Scarlett Patricia on 09-02-2023 Anion gap [Moles/Vol] 9 mmol/L 8 - 15 mmol/L [facility] Calcium [Mass/Vol] 9.5 mg/dL 8.5 - 10. 2 mg/dL [facility] Chloride [Moles/Vol] 104 mmol/L 98 - 10 7 mmol/L [facility] CO2 [Moles/Vol] 24 mmol/L 22 - 30 mmol/L [facility] Creatinine [Mass/Vol] 0.70 mg/dL 0.58 - 0.96 mg/dL [facility] GFR/1.73 sq M.predicted among non-blacks MDRD (S/P/Bld) [Vol rate/Area] 119 mL/min/{1.73_m2} - PINF [facility] Comment on above: Estimated Glomerular Filtration Rate (eGFR) is calculated using the 2020 CKD-EPI creatinine equation. This equation utilizes serum creatinine, sex, and age as parameters. The creatinine assay has traceable calibration to isotope dilution-mass spectrometry. Refer to KDIGO guidelines for clinical interpretation. In patients with unstable renal function, e.g. those with acute kidney injury, the eGFR may not accurately reflect actual GFR. Glucose [Mass/Vol] 110 mg/dL High 74 - 99 mg/dL [facility] Comment on above: The [place] Diabete s Association (ADA) provides guidance for cutoff values for fasting glucose and random glucose. The ADA defines fasting as no caloric intake for at least 8 hours. Fasting plasma glucose results between 100 to 125 mg/dL indicate increased risk for diabetes (prediabetes). Fasting plasma glucose results greater than or equal to 126 mg/dL meet the criteria for diagnosis of diabetes. In the absence of unequivocal hyperglycemia, results should be confirmed by repeat testing. In a patient with classic symptoms of hyperglycemia or hyperglycemic crisis, random plasma glucose results greater than or equal to 200 mg/dL meet the criteria for diagnosis of diabetes. Reference: Standards of Medical Care in Diabetes 2016, [place] Diabetes Association. Diabetes Care. 2016.39(Suppl 1). Interpretation and review of laboratory results Abnormal [facility] Potassium [Moles/Vol] 4.6 mmol/L 3.7 - 5.1 mmol/L [facility] Sodium [Moles/Vol] 137 mmol/L 136 - 144 mmol/L [facility] Urea nitrogen [Mass/Vol] 12 mg/dL 7 - 21 mg/dL [facility] Basic Metabolic Profile (BMP )on 08-28-2023 BUN/CRE 13.7 RATIO Normal 10-20 [facility] Comment on above: Performed By: #### L 500.2500, L100.0100 ####[facility] [id number] [place], [address] CA,Total 9.5 mg/dL Normal 8.5-10.1 [facility] Comment on above: Performed By: #### L 500.2500, L100.0100 ####[facility] [id number] [place], [address] Chloride [Moles/Vol] 103 mmol/L Normal 98-107 [facility] Comment on above: Performed By: #### L 500.2500, L100.0100 ####[facility] [address] [place], [address] CO2 [Moles/Vol] 31.0 mmol/L Normal 21.0-32.0 [facility] Comment on above: Performed By: #### L 500.2500, L100.0100 ####[facility] [address] [place], [address] Creatinine [Mass/Vol] 0.73 mg/dL Normal 0.55-1.02 [facility] Comment on above: Result Comment: The validity of the calculated GFR GFRAA in patients over 70 years has not been determined. Clinical correlation is essential. Performed By: #### L 500.2500, L100.0100 ####[facility] [address] [place], [address] ECRCL 131.11 ml/min Normal [facility] Comment on above: Performed By: #### L 500.2500, L100.0100 ####[facility] [address] [place], [address] EST GFR - AA 120 mL/min Normal >60 [facility] Comment on above: Result Comment: Afri can Bulgarian GFR Calc Performed By: #### L 500.2500, L100.0100 ####[facility] [address] [place], [address] GAP 3 Low 5-15 [facility] Comment on above: Performed By: #### L 500.2500, L100.0100 ####[facility] [address] [place], [address] GFR/1.73 sq M.predicted among non-blacks MDRD (S/P/Bld) [Vol rate/Area] 99 mL/min/{1.73_m2} Normal >60 [facility] Comment on above: Result Comment: Non- GFR Calc Performed By: #### L 500.2500, L100.0100 ####[facility] [address] [place], [address] Glucose [Mass/Vol] 108 mg/dL High 74-106 [facility] Comment on above: Result Comment: Fast ing Glucose result from 100 to 125 mg/dL suggests IMPAIRED HOMEOSTASIS per A.D.A. criteria. Performed By: #### L 500.2500, L100.0100 ####[facility] [address] [place], [address] Potassium [Moles/Vol] 4.0 mmol/L Normal 3.5-5.1 [facility] Comment on above: Performed By: #### L 500.2500, L100.0100 ####[facility] [address] [place], [address] Sodium [Moles/Vol] 137 mmol/L Normal 136-145 [facility] Comment on above: Performed By: #### L 500.2500, L100.0100 ####[facility] [address] [place], [address] Urea nitrogen [Mass/Vol] 10 mg/dL Normal 7-18 [facility] Comment on above: Performed By: #### L 500.2500, L100.0100 ####[facility] [address] [place], [address] CBC W/Diff, Automatedon 08-16 Absolute Lymph 2.96 X10 3/uL Normal 0.83-4.51 [facility] Comment on above: Performed By: #### L 500.2500, L100.0100 #### [facility] Laboratory [address] [place], [address] Absolute Neut 7.4 X10 3/uL Normal 2.0-7.7 [facility] Comment on above: Performed By: #### L 500.2500, L100.0100 #### [facility] Laboratory [address] [place], [address] Basophils/100 WBC (Bld) 0.3 % Normal 0-1 [facility] Comment on above: Performed By: #### L 500.2500, L100.0100 #### [facility] [address] [place], [address] Eosinophils/100 WBC (Bld) 4.7 % Normal 0-5 [facility] Comment on above: Performed By: #### L 500.2500, L100.0100 #### [facility] Laboratory [address] [place], [address] Erythrocyte distribution width (RBC) [Ratio] 14.6 % Normal 11.6-14.6 [facility] Comment on above: Performed By: #### L 500.2500, L100.0100 #### [facility] Laboratory [address] [place], [address] Hematocrit (Bld) [Volume fraction] 35.2 % Low 37-47 [facility] Comment on above: Performed By: #### L 500.2500, L100.0100 #### [facility] Laboratory [address] [place], [address] Hemoglobin (Bld) [Mass/Vol] 10.8 g/dL Low 12.0-15.0 [facility] Comment on above: Performed By: #### L 500.2500, L100.0100 #### [facility] [address] [place], [address] IG% 0.300 Normal 0.0-0.9 [facility] Comment on above: Result Comment: IG% - Immature Granulocytes (promyelocytes, myelocytes and metamyelocytes) > 1% indicates that a LEFT SHIFT is Present. Performed By: #### L 500.2500, L100.0100 #### [facility] [address] [place], [address] Lymphocytes/100 WBC (Bld) 25.5 % Normal 19-41 [facility] Comment on above: Performed By: #### L 500.2500, L100.0100 #### [facility] Laboratory [address] [place], [address] MCH (RBC) [Entitic mass] 26.0 pg Low 27.0-32.0 [facility] Comment on above: Performed By: #### L 500.2500, L100.0100 #### [facility] Laboratory [address] [place], [address] MCHC (RBC) [Mass/Vol] 30.7 g/dL Low 32-36 [facility] Comment on above: Performed By: #### L 500.2500, L100.0100 #### [facility] [address] [place], [address] MCV (RBC) [Entitic vol] 84.6 fL Normal 81-99 [facility] Comment on above: Performed By: #### L 500.2500, L100.0100 #### [facility] Laboratory [address] [place], [address] Monocytes/100 WBC (Bld) 5.9 % Normal 0-10 [facility] Comment on above: Performed By: #### L 500.2500, L100.0100 #### [facility] Laboratory [address] [place], [address] Neutrophils/100 WBC (Bld) 63.3 % Normal 47-70 [facility] Comment on above: Performed By: #### L 500.2500, L100.0100 #### [facility] Laboratory [address] [place], [address] Nucleated RBC (Bld) [#/Vol] 0 10*3/uL Normal 0-5 [facility] Comment on above: Performed By: #### L 500.2500, L100.0100 #### [facility] Laboratory [address] [place], [address] Platelet mean volume (Bld) [Entitic vol] 10.4 fL Normal 6.2-12.0 [facility] Comment on above: Performed By: #### L 500.2500, L100.0100 #### [facility] Laboratory [address] [place], [address] Platelets (Bld) [#/Vol] 300 10*3/uL Normal 150-450 [facility] Comment on above: Performed By: #### L 500.2500, L100.0100 #### [facility] Laboratory [address] [place], [address] RBC (Bld) [#/Vol] 4.16 10*6/uL Low 4.2-5.4 [facility] Comment on above: Performed By: #### L 500.2500, L100.0100 #### [facility] Laboratory [address] [place], [address] RDW SD 45.1 fl High 35.1-43.9 [facility] Comment on above: Performed By: #### L 500.2500, L100.0100 #### [facility] Laboratory [address] [place], [address] WBC (Bld) [#/Vol] 11.6 10*3/uL High 4.4-11.0 [facility] Comment on above: Performed By: #### L 500.2500, L100.0100 #### [facility] Laboratory [address] [place], [place], [address] CTA Chest W/WO Contraston CTA Chest W/WO Contrast [facility] Imaging Services [address] [place] [address] CTA Chest W/WO Contrast MR#: [id number] Acct: [id number] Name: CRYSTAL MACHUCA Rep #: [id number] : 1990 F 33 From: Bryan Enriquez MD PCP: Dr. Amilcar Ott DO Status: REG ER Study: CTA Chest W/WO Contrast Date of Exam: 08/28/23 Exam# [id number] Ordering Dr: Henry Eller DO [id number] STUDY: CTA CHEST REASON FOR EXAM: Female, 33 years old. Chest pain RADIATION DOSAGE (If Supplied By Facility): CTDIvol = ( 12.13 ) mGy, DLP = ( 509.17 ) mGycm TECHNIQUE: The examination was performed with the intravenous administration of IV 100mL Isovue-370. Post-processing of the angiographic images was performed, with multiplanar reformation and 3D reconstruction. Individualized dose optimization techniques were used for this CT. COMPARISON: None. FINDINGS: Normal enhancement of the main pulmonary artery and right and left pulmonary arteries. Normal enhancement of the bilateral peripheral pulmonary arteries. There is no demonstrated pulmonary embolism. Normal thoracic aorta and visualized great vessels. There is no demonstrated aortic dissection. Normal heart and pericardium. Normal mediastinum. Normal hilar regions. Normal visualized trachea and bronchi. The lungs are well expanded. Minor subsegmental atelectasis in the right lower lobe Normal pleura. Normal chest wall structures. Old displaced nonhealed fracture of the right transverse process of L1 Small hypoattenuated lesion within the T9 vertebral body without cortical destruction most likely benign. Normal visualized upper abdomen. CT/CTA Chest W/WO Contrast IMPRESSION: Minor subsegmental atelectasis in the right lower lobe No evidence for pulmonary embolus or other acute abnormality. Electronically Signed: Bryan Enriquez MD at 18:40 EDT , CC: Dr. Henry Eller DO; Dr. Amilcar Ott DO [employer]: Signed Normal [facility] Emergency Department Summary on 08-28-2023 Emergency Department Summary [facility] Medical Records Department [address] [place] [address] Emergency Department Summary 08/28/23 MR#: [id number] Acct: [id number] Name: CRYSTAL MACHUCA Rep #: [id number] : 1990 33 From: Henry Eller DO PCP: Dr. Amilcar Ott DO Status:DEP ER Location: ED HPI History of Present Illness Chief Complaint: Chest Other Informant: patient Onset/Context/Timing Onset: Today Context: Sudden Onset Timing: Continuous Quality: "Like something is stuck in my chest" Location: Right chest Worsened by: Deep breathing Relieved by: Nothing Narrative Narrative: Patient presents with right-sided chest pain that began today. Patient states she had some pain and swelling in her left leg. Patient went to the urgent care yesterday and had an ultrasound done there. Patient states she was diagnosed with superficial phlebitis. Patient states that she has pain over the right side of her chest that is worse with deep breathing. Patient denies any shortness of breath however. Patient denies any fevers or chills. Patient states the pain in her chest feels like something is stuck in her chest. Patient also admits to a mild headache. Patient states she had a 6 weeks ago. Recent Illness/Hospitalization: Yes PFSH PFSH Medical History Wears glasses MRSA infection Bipolar disorder Smoker Lymphocytic colitis Anxiety PTSD (post-traumatic stress disorder) Depression Bipolar 2 disorder Hx MRSA infection Hepatitis B Tumors Recurrent infections Drug abuse Hx: UTI (urinary tract infection) Hx of fracture Asthma Anemia Allergies Alcohol abuse Home Medications ???Medication ???Instructions ???Recorded ???Last Taken ???Type buprenorphine 100 mg/0.5 mL 100 mg subcut QMONTH 07/16/22 Unknown History solution,exten.rel.subcu taneous syringe (Sublocade) prazosin 1 mg capsule 1 mg PO QHS 07/16/22 Unknown History gabapentin 100 mg capsule 400 mg PO Q8H 07/19/22 Unknown History ondansetron 4 mg disintegrating 4 mg PO Q8H PRN nausea and 08/08/22 Unknown Rx tablet vomiting #30 tabs lithium carbonate 150 mg capsule 150 mg PO BID 10/17/22 10/18/22 History pantoprazole 20 mg tablet,delayed 20 mg PO Q12H #60 tabs 10/19/22 Unknown Rx release pantoprazole 20 mg tablet,delayed 20 mg PO Q12H #60 tabs 10/19/22 Unknown Rx release sucralfate 1 gram tablet 1 g PO .bid 12 weeks #60 tabs 10/19/22 Unknown Rx sucralfate 1 gram tablet 1 g PO .bid 4 weeks #60 tabs 10/19/22 Unknown Rx Allergy/AdvReac Type Severity Reaction Status Date / Time amoxicillin (From Augmentin) Allergy Intermediate Hives Verified 08/28/23 16:53 clavulanic acid (From Allergy Intermediate Hives Verified 08/28/23 16:53 Augmentin) penicillin G Allergy Intermediate Hives Verified 08/28/23 16:53 Family History Mother Anemia Cancer cervical/ovarian Grandmother Asthma Breast cancer Parkinsons Poor mental health Father Arthritis Bowel disease colitis Grandfather Colon cancer Diabetes Other Anxiety Surgical History History of tonsillectomy and adenoidectomy Carver teeth removed Social History household members: other details: 180 treatment program current occupational status: unemployed Smoking Status: Current every day smoker tobacco type: cigarettes Electronic Cigarette Use: not used alcohol intake: former year quit: 2014 substance use type: marijuana and crack/cocaine what type of physical activity do you participate in: yoga do you feel safe at home: Yes ROS ROS ED Constitutional Constitutional ED: Denies chills or fever(s) Eyes Eyes: Reports blurry vision; Denies diplopia ENT ENT ED: Denies rhinorrhea or sore throat Cardiovascular Cardiovascular: Reports chest pain; Denies palpitations Respiratory/Chest Respiratory/Chest: Denies cough or dyspnea Gastrointestinal Gastrointestinal: Reports nausea; Denies vomiting Genitourinary Genitourinary ED: Denies dysuria or hematuria Musculoskeletal Musculoskeletal: Reports back pain; Denies neck pain Integumentary Denies abscess or rash Neurologic Neurologic: Reports headache(s) and paresthesias LLE (Left foot); Denies weakness Allergic/Immunologic Allergic/Immunologic ED: Denies mouth swelling or urticaria EXAM Physical Exam Const Vital Signs: 08/28/23 16:51 08/28/23 18:47 Temperature 97.4 F L Temperature Source Temporal Pulse Rate 80 88 Respiratory Rate 16 18 Blood Pressure 115/78 127/84 H Blood Pressure Mean 90 98 Pulse Ox 97 98 Oxygen Delivery Method Room Air Room Air Positive well nourished and well developed General Appearance ED: well (more content not included)... Normal [facility] ,Serum,hCG Quali.on 08-28-2023 HCG, SERUM QUAL Negative Normal [facility] Comment on above: Performed By: #### L 700.6800 #### [facility] Laboratory [address] [place], [place], [address] Lower extremity veinon Non-Invasive Vascular Laboratory [facility] Lower Extremity Venous Duplex Unilateral - Left Date of service/time: 08/27/2023 1:07:05 PM Name: CRYSTAL MACHUCA Date of : 1990 Age: 33 years Gender: F Clinical Indication Palpable cord. Left TECHNIQUE -------- A venous duplex ultrasound examination was performed, including grayscale imaging with compression maneuvers and color Doppler and spectral Doppler examination with augmentation maneuvers and response to respiration of the below mentioned veins. FINDINGS -------- RIGHT SIDE Common femoral vein Doppler: normal flow. LEFT SIDE Distal external iliac vein Doppler: normal flow. Compression: normal. Common femoral vein Doppler: normal flow. Compression: normal. Femoral vein Doppler: normal flow. Compression: normal. Popliteal vein Doppler: normal flow. Compression: normal. Posterior tibial veins Compression: normal. Peroneal veins Compression: normal. Great saphenous vein Compression: normal. Small saphenous vein Compression: normal. IMPRESSION RIGHT SIDE - DEEP VEINS Spontaneous and respirophasic flow noted in the common femoral vein. LEFT SIDE - DEEP VEINS Negative for acute deep vein thrombosis. LEFT SIDE - SUPERFICIAL VEINS Acute superficial thrombophlebitis in the great saphenous vein at the knee crease to distal calf. Negative for superficial thrombophlebitis in the small saphenous vein. Technologist: Ninoska Goldstein RVT, RDNE Ordering physician: YOSELYN CHANDRA Interpreting physician: SUHA Cuellar DO Final See Link below for Image [facility] Basophil percentageOrdered B y: Matt Kramer on 07-17-2023 Hemoglobin (Bld) [Mass/Vol] 8.4 g/dL 12.0-15.0 [facility] WBC (Bld) [#/Vol] 13.8 10*3/uL 4.4-11.0 [facility] CBC-Complete Blood Cnt No Di ffon 07-17-2023 Erythrocyte distribution width (RBC) [Ratio] 13.3 % Normal 11.6-14.6 [facility] Comment on above: Order Comment: Comme nts: Day #1Reason for Laboratory Test Performed By: #### L 100.0500 ####[facility] [address] [place], [place], [phone] Hematocrit (Bld) [Volume fraction] 26.4 % Low 37-47 [facility] Comment on above: Order Comment: Comme nts: Day #1Reason for Laboratory Test Performed By: #### L 100.0500 ####[facility] [address] [place], [address] Hemoglobin (Bld) [Mass/Vol] 8.4 g/dL Low 12.0-15.0 [facility] Comment on above: Order Comment: Comme nts: Day #1Reason for Laboratory Test Performed By: #### L 100.0500 ####[facility] [address] [place], [address] MCH (RBC) [Entitic mass] 27.9 pg Normal 27.0-32.0 [facility] Comment on above: Order Comment: Comme nts: Day #1Reason for Laboratory Test Performed By: #### L 100.0500 ####[facility] [address] [place], [address] MCHC (RBC) [Mass/Vol] 31.8 g/dL Low 32-36 [facility] Comment on above: Order Comment: Comme nts: Day #1Reason for Laboratory Test Performed By: #### L 100.0500 ####[facility] [address] [place], [address] MCV (RBC) [Entitic vol] 87.7 fL Normal 81-99 [facility] Comment on above: Order Comment: Comme nts: Day #1Reason for Laboratory Test Performed By: #### L 100.0500 ####[facility] [address] [place], [address] Platelet mean volume (Bld) [Entitic vol] 11.5 fL Normal 6.2-12.0 [facility] Comment on above: Order Comment: Comme nts: Day #1Reason for Laboratory Test Performed By: #### L 100.0500 ####[facility] [address] [place], [address] Platelets (Bld) [#/Vol] 203 10*3/uL Normal 150-450 [facility] Comment on above: Order Comment: Comme nts: Day #1Reason for Laboratory Test Performed By: #### L 100.0500 ####[facility] [address] [place], [address] RBC (Bld) [#/Vol] 3.01 10*6/uL Low 4.2-5.4 [facility] Comment on above: Order Comment: Comme nts: Day #1Reason for Laboratory Test Performed By: #### L 100.0500 ####[facility] [address] [place], [address] RDW SD 42.1 fl Normal 35.1-43.9 [facility] Comment on above: Order Comment: Comme nts: Day #1Reason for Laboratory Test Performed By: #### L 100.0500 ####[facility] [address] [place], [address] WBC (Bld) [#/Vol] 13.8 10*3/uL High 4.4-11.0 [facility] Comment on above: Order Comment: Comme nts: Day #1Reason for Laboratory Test Performed By: #### L 100.0500 ####[facility] [address] [place], [address] Determination of erythrocyte mean corpuscular volume (MCV)Ordered By: Matt Kramer on 07-17-2023 MCV (RBC) [Entitic vol] 87.7 fL 81-99 [facility] Erythrocyte distribution wid th ratioOrdered By: Matt Kramer on 07-17-2023 Erythrocyte distribution width (RBC) [Ratio] 13.3 % 11.6-14.6 [facility] Erythrocyte distribution wid th standard deviationOrdered By: Matt Kramer on 07-17-2023 Erythrocyte distribution width (RBC) [Entitic vol] 42.1 fL 35.1-43.9 [facility] Hematocrit Auto (Bld) [Volum e fraction]Ordered By: Matt Kramer on 07-17-2023 Hematocrit (Bld) [Volume fraction] 26.4 % 37-47 [facility] Laboratory - Hematology and Cell countsOrdered By: Matt Kramer on 07-17-2023 MCH (RBC) [Entitic mass] 27.9 pg 27.0-32.0 [facility] MCHC (RBC) [Mass/Vol] 31.8 g/dL 32-36 [facility] Platelet mean volume (Bld) [Entitic vol] 11.5 fL 6.2-12.0 [facility] Platelets (Bld) [#/Vol] 203 10*3/uL 150-450 [facility] RBC Auto (Bld) [#/Vol]Ordere d By: Matt Kramer on 07-17-2023 RBC (Bld) [#/Vol] 3.01 10*6/uL 4.2-5.4 [facility] 12 Lead EKGon 07-16-2023 12 Lead EKG [facility] Cardiovascular Services [address] [place] [address] 12 Lead EKG 07/16/23 1647 MR#: [id number] Acct: [id number] Name: CRYSTAL MACHUCA Rep #: [id number] : 1990 33 From: Israel Forrester MD Attending Dr: Dr. Matt Kramer MD Status: DIS IN Ordering Dr: Matt Kramer MD Date: 07/16/23 Location: Sex: F C Admitted: 07/16/23 Test Reason : ARRYTHMIA Blood Pressure : / mmHG Vent. Rate : 057 BPM Atrial Rate : 057 BPM P-R Int : 240 ms QRS Dur : 092 ms QT Int : 398 ms P-R-T Axes : 000 075 035 degrees QTc Int : 387 ms Sinus bradycardia with 1st degree A-V block Otherwise normal ECG No previous ECGs available Confirmed by ISRAEL FORRESTER MD ([id number]), editorial director KYA CORONADO ([id number]) on 07/19/2023 9:42:36 AM Referred By: Matt Kramer Confirmed By:ISRAEL FORRESTER MD 07/19/23 0942 Date Israel Forrester MD CC: Dr. Mary Myers MD; Dr. Matt Kramer MD Signed Normal [facility] Absolute lymphocyte countOrd ered By: Ema Abarca on 07-16-2023 Lymphocytes Auto (Unsp spec) [#/Vol] 2.66 10*3/uL 0.83-4.51 [facility] Automated lymphocyte count a s percentage of total leukocytesOrdered By: Ema Abarca on 07-16-2023 Lymphocytes/100 WBC Auto (Unsp spec) 19.8 % 19-41 [facility] Basophil percentageOrdered B y: Ema Abarca on 07-16-2023 Basophils/100 WBC (Bld) 0.4 % 0-1 [facility] Eosinophils/100 WBC (Bld) 2.8 % 0-5 [facility] Monocytes/100 WBC (Bld) 6.9 % 0-10 [facility] Neutrophils (Bld) [#/Vol] 9.3 10*3/uL 2.0-7.7 [facility] Neutrophils/100 WBC (Bld) 69.6 % 47-70 [facility] CBC W/Diff, Automatedon 06-18 Absolute Lymph 2.66 X10 3/uL Normal 0.83-4.51 [facility] Comment on above: Performed By: #### L 100.0100, BTS #### [facility] Laboratory [address] [facility] [address] Absolute Neut 9.3 X10 3/uL High 2.0-7.7 [facility] Comment on above: Performed By: #### L 100.0100, BTS #### [facility] Laboratory [address] [facility] [address] Basophils/100 WBC (Bld) 0.4 % Normal 0-1 [facility] Comment on above: Performed By: #### L 100.0100, BTS #### [facility] [address] [facility] [address] Eosinophils/100 WBC (Bld) 2.8 % Normal 0-5 [facility] Comment on above: Performed By: #### L 100.0100, BTS #### [facility] Laboratory [address] [place], [address] Erythrocyte distribution width (RBC) [Ratio] 13.3 % Normal 11.6-14.6 [facility] Comment on above: Performed By: #### L 100.0100, BTS #### [facility] Laboratory [address] [place], [address] Hematocrit (Bld) [Volume fraction] 30.6 % Low 37-47 [facility] Comment on above: Performed By: #### L 100.0100, BTS #### [facility] Laboratory [address] [place], [address] Hemoglobin (Bld) [Mass/Vol] 9.9 g/dL Low 12.0-15.0 [facility] Comment on above: Performed By: #### L 100.0100, BTS #### [facility] [address] [place], [address] IG% 0.500 Normal 0.0-0.9 [facility] Comment on above: Result Comment: IG% - Immature Granulocytes (promyelocytes, myelocytes and metamyelocytes) > 1% indicates that a LEFT SHIFT is Present. Performed By: #### L 100.0100, BTS #### [facility] [address] [place], [address] Lymphocytes/100 WBC (Bld) 19.8 % Normal 19-41 [facility] Comment on above: Performed By: #### L 100.0100, BTS #### [facility] [address] [place], [address] MCH (RBC) [Entitic mass] 28.4 pg Normal 27.0-32.0 [facility] Comment on above: Performed By: #### L 100.0100, BTS #### [facility] [address] [place], [address] MCHC (RBC) [Mass/Vol] 32.4 g/dL Normal 32-36 [facility] Comment on above: Performed By: #### L 100.0100, BTS #### [facility] [address] [place], [address] MCV (RBC) [Entitic vol] 87.7 fL Normal 81-99 [facility] Comment on above: Performed By: #### L 100.0100, BTS #### [facility] [address] [place], [address] Monocytes/100 WBC (Bld) 6.9 % Normal 0-10 [facility] Comment on above: Performed By: #### L 100.0100, BTS #### [facility] [address] [place], [address] Neutrophils/100 WBC (Bld) 69.6 % Normal 47-70 [facility] Comment on above: Performed By: #### L 100.0100, BTS #### [facility] [address] [place], [address] Nucleated RBC (Bld) [#/Vol] 0 10*3/uL Normal 0-5 [facility] Comment on above: Performed By: #### L 100.0100, BTS #### [facility] [address] [place], [address] Platelet mean volume (Bld) [Entitic vol] 11.7 fL Normal 6.2-12.0 [facility] Comment on above: Performed By: #### L 100.0100, BTS #### [facility] [address] [place], [address] Platelets (Bld) [#/Vol] 237 10*3/uL Normal 150-450 [facility] Comment on above: Performed By: #### L 100.0100, BTS #### [facility] [address] [place], [address] RBC (Bld) [#/Vol] 3.49 10*6/uL Low 4.2-5.4 [facility] Comment on above: Performed By: #### L 100.0100, BTS #### [facility] [address] 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 Mary Myers MD Status:ADM IN Location: [id number] HPI - General General Date of Admission: 07/16/23 Date of Service: 07/16/23 HPI Narrative CRYSTAL MACHUCA, is a 33 F who presents for induction. Maternal Data Information Final ASHISH: 07/22/23 Gestational age: 39 1 PFSH PFSH Medical History Alcohol abuse Allergies Anemia Anxiety Asthma Bipolar 2 disorder Bipolar disorder Depression Drug abuse Hepatitis B Hx MRSA infection Hx of fracture Hx: UTI (urinary tract infection) Lymphocytic colitis MRSA infection PTSD (post-traumatic stress disorder) Recurrent infections Smoker Tumors Wears glasses Home Medications buprenorphine 100 mg/0.5 mL solution,exten.rel.subcu taneous syringe (Sublocade) 100 mg subcut QMONTH 07/16/22 [History Last Taken Unknown] prazosin 1 mg capsule 1 mg PO QHS 07/16/22 [History Last Taken Unknown] gabapentin 100 mg capsule 400 mg PO Q8H 07/19/22 [History Last Taken Unknown] ondansetron 4 mg disintegrating tablet 4 mg PO Q8H PRN nausea and vomiting #30 tabs 08/08/22 [Rx Last Taken Unknown] lithium carbonate 150 mg capsule 150 mg PO BID 10/17/22 [History Last Taken 10/18/22] pantoprazole 20 mg tablet,delayed release 20 mg PO Q12H #60 tabs 10/19/22 [Rx Last Taken Unknown] pantoprazole 20 mg tablet,delayed release 20 mg PO Q12H #60 tabs 10/19/22 [Rx Last Taken Unknown] sucralfate 1 gram tablet 1 g PO .bid 12 weeks #60 tabs 10/19/22 [Rx Last Taken Unknown] sucralfate 1 gram tablet 1 g PO .bid 4 weeks #60 tabs 10/19/22 [Rx Last Taken Unknown] Allergy/AdvReac Type Severity Reaction Status Date / Time amoxicillin [From Augmentin] Allergy Intermediate Hives Verified 11/01/22 09:59 clavulanic acid Allergy Intermediate Hives Verified 11/01/22 09:59 [From Augmentin] penicillin G Allergy Intermediate Hives Verified 10/19/22 12:51 Family History Mother Anemia Cancer cervical/ovarian Grandmother Asthma Breast cancer Parkinsons Poor mental health Father Arthritis Bowel disease colitis Grandfather Colon cancer Diabetes Other Anxiety Surgical History History of tonsillectomy and adenoidectomy Carver teeth removed Social History household members: other details: 180 treatment program current occupational status: unemployed Smoking Status: Current every day smoker tobacco type: cigarettes Electronic Cigarette Use: not used alcohol intake: former year quit: 2014 substance use type: marijuana and crack/cocaine what type of physical activity do you participate in: yoga do you feel safe at home: Yes NST FHR Rate Baby A Baseline: 120 Variability:: Moderate Accelerations:: 15 x 15 Decelerations:: None Uterine Activity:: Occasional Vital Signs Vital Signs Vital Signs: 07/16/23 07:27 07/16/23 07:27 07/16/23 07:29 Pulse Rate 88 85 Blood Pressure 128/76 H BP Systolic 128 BP Diastolic 76 Pulse Ox 07/16/23 07:29 Pulse Rate Blood Pressure BP Systolic BP Diastolic Pulse Ox 96 Physical Exam Const alert, oriented x3 and no apparent distress GI soft to palpation, non-tender and non-distended Inspection: gravid external exam normal Narrative: cvx - 2/80/-2 Labs Labs Labs: Hct 37.4 % (37-47) Hgb 11.9 g/dL (12.0-15.0) L Hep Bs Antigen Not Reportable Miscellaneous Test Assessment Plan (1) Drug abuse: COMMENT: @ 39 1 (2) PTSD (post-traumatic stress disorder): (3) with 39 completed weeks gestation: PLAN: Plan Admit to L D Induction of labor for subutex use Intracervical myers placed plan for IV pitocin GBS negative Pain - epidural as desired EFW less than 4500g patient with adequate pelvis 07/16/23 0842 Cosigner Signature (if applicable): CC: Dr. Mary Myers MD; Dr. Matt Kramer MD Signed Normal [facility] Immature granulocytes/100 WB C Auto (Bld)Ordered By: Ema Abarca on 07-16-2023 Immature granulocytes/100 WBC (Bld) 0.500 % 0.0-0.9 [facility] Comment on above: IG% - Immature Granu locytes (promyelocytes, myelocytes and metamyelocytes) > 1% indicates that a LEFT SHIFT is Present. L509.8000on 07-16-2023 Syphilis Abs Non-Reactive Normal [facility] Comment on above: Performed By: #### L 509.8000 #### [facility] [address] [place], [address] Laboratory - Drug toxicology Ordered By: Matt Kramer on 07-16-2023 Amphetamines Ql (U) Negative <1000 ng/mL [facility] Benzodiazepines Ql (U) Negative < 200 ng/mL [facility] Cannabinoids Screen Ql (U) Negative < 50 ng/mL [facility] Cocaine Ql (U) Negative < 300 ng/mL [facility] Opiates Ql (U) Negative < 300 ng/mL [facility] Laboratory - Hematology and Cell countsOrdered By: Ema Abarca on 07-16-2023 Nucleated RBC/100 WBC (Bld) [Ratio] 0 % 0-5 [facility] No Panel InformationOrdered By: Matt Kramer on 07-16-2023 MDMA (Ecstasy) Screen Negative < 500 ng/mL [facility] Urine Barbiturates Screen Negative < 200 ng/mL [facility] Urine Drug Screen Comment [facility] Comment on above: CONFIRMATORY TESTING FOR ALL POSITIVE URINE DRUG SCREENRESULTS WILL ONLY BE SENT OUT UPON PHYSICIAN ORDER. VISTA Urine Drug Screen methods provide only preliminaryanalytical test results. A more specific alternate chemicalmethod must be used in order to obtain a confirmedanalytical result. Gas chromatography/mass spectrometery(GC/MS) is the preferred confirmatory method. Clinicalconsideration and professional judgement should be appliedto any drug of abuse test result, particularly whenpreliminary positive results are used. URINE TCA TESTING MUST BE ORDERED SEPARATELY. USE TESTMNEMONIC: [facility] Urine Methadone Screen Negative < 300 ng/mL [facility] Operative Reporton 4 Operative Report [facility] Medical Records Department [address] [place] [address] Operative Report 07/16/23 1456 MR#: [id number] Acct: [id number] Name: CRYSTAL MACHUCA Rep #: [id number] : 1990 33 From: Matt Kramer MD PCP: Dr. Mary Myers MD Status:ADM IN Location: [id number] Maternal Data Information Final ASHISH: 07/22/23 Gestational age: 39 1 Details Operative Information Date of Procedure: 07/16/23 Pre-Operative Diagnosis: (1) Non reassuring heart tracing (2) Sterilization request Post-Operative Diagnosis: Same Indications for : Desires elective sterilization and Nonreassuring Status Indications Narrative: Patient was taken to the OR for prolonged deceleration. In the OR FHTs varied from 90's to 100's. Her cervical exam was stable from AROM. Patient counseled on R/B/A as she was remoted from delivery with persistent bradycardia. Decision made to proceed with . Epidural anesthesia was dosed found to be adequate. She was prepped and draped in the dorsal supine position with a leftward tilt. A Pfannenstiel skin incision was made approximately 2 cm above the symphysis pubis and carried through to the underlying fascia with the scalpel. The fascia was incised incised in the midline and extended laterally with the Gann scissors. The rectus muscles were in the midline and the peritoneum was entered carefully and bluntly. The peritoneal incision was stretched and the bladder blade was inserted. Vesicouterine peritoneum was tented up, incised then bladder flap created gently. The uterine incision was made in a low transverse fashion with the scalpel and extended superiorly and inferiorly with blunt dissection. The 's head was brought to the incision in the flexed position and delivered without difficulty. The head was gently guided to allow delivery of the anterior and posterior shoulders. The body then delivered with fundal pressure in the standard fashion. The 3VC cord was clamped and cut in delayed fashion. The infant was handed off to the waiting security risk analyst. The placenta was delivered with fundal massage and gentle traction in the standard fashion. The uterus was exteriorized and cleared of clots and debris. The uterine incision was closed with #1 Vicryl suture in a running locked fashion. Monocryl suture was used in an imbricating fashion over part of the incision to obtain further hemostasis. The incision was examined and was found to be hemostatic. The uterus was returned to the abdominal cavity. Attention turned to the fallopian tubes. The right fallopian tube was grasped, cauterized and ligated with the Ligasure. Excellent hemostasis of the tubal ligation site was confirmed. Then the left fallopian tube was grasped, cauterized and ligated with the Ligasure. Excellent hemostasis of the tubal ligation site was confirmed After irrigating Nathaly was placed over the uterine incision as some areas were denuded (but hemostatic). The rectus muscle was examined and any bleeding was Bovie cauterized. The fascia was closed with PDS suture in a running standard fashion. The subcutaneous tissue was examining and any bleeding was Bovie cauterized. The subcutaneous tissue was reapproximated with interrupted sutures. The skin was closed in a subcuticular fashion by the SCREENING UNIT REGISTERED NURSE while I was present in the labor delivery unit. The remainder of the procedure was performed by me with assistance. All sponge, lap, and needle counts were correct. The patient was taken to her room for recovery in a stable condition. 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 #1: Berna Sneed Type of Anesthesia: Spinal Antibiotic Given: Ancef 2 grams IV x1 and Zithromax 500 mg/5 mL X1 Drain: Myers to straight drain Estimated Blood Loss: 800 ml Fluids Replaced: 550ml Procedure Start Time: 14:12 Procedure Stop Time: 14:55 Findings Description of Procedure: Normal maternal uterus and adnexa Amniotic Membrane Rupture Type: Artificial Amniotic Fluid Description: Clear Placental Delivery Description: Expressed Placenta Disposition: [facility] Cord Vessel Description: 3 Vessels Cord Entanglement: Around neck x 1, tight Nuchal Cord Compression: With compression A Gender: Male (1 minute): 8 (5 minute): 9 Delayed Cord Clamping: Yes Complications Complications: none 07/16/23 1503 Cosigner Signature (if applicable): CC: Dr. Mary Myers MD; Dr. Matt Kramer MD Signed ADDENDUM by Dr. Matt Kramer MD on 07/16/23 at 1503 Addendum Specimen - bilateral fallopian tubes 07/16/23 1503 Cosigner Signature (if applicable): cc: Dr. Mary Myers MD; Dr. Matt Kramer MD * Signed Normal [facility] Pathology Specimen OBon -3 PATH. Spec OB SEE PATHOLOGY REPORT Normal [facility] Comment on above: Order Comment: Comme nts: STITCH IN LEFT TUBE Send Specimen For (Specify): Studies @ [facility] Lab:Routine Time of Procedure: 1413 Date of Procedure: 07/16/23 Reason specimen being sent to pathology (Hx/complications): ROUTINE Type of specimen: Fallopian Tube Type of procedure performed: Tubal Ligation Result Comment: Spec imen submitted to Anatomical Pathology Department for testing. Performed By: #### L 350.1800 #### [facility] [address] [place], [address] Procedure Reporton 4 Procedure Report [facility] Medical Records Department [address] [place] [address] Procedure Report 07/16/23 1037 MR#: [id number] Acct: [id number] Name: CRYSTAL MACHUCA Rep #: [id number] : 1990 33 From: Nadia CERDA PCP: Dr. Mary Myers MD Status:ADM IN Location: [id number] Procedure Report Date of Procedure: 07/16/23 Assessment Plan Assessment/Plan (1) Poor venous access: PLAN: PROCEDURE: IV Placement under Ultrasound Guidance PERFORMED BY: NATALIE Jones INDICATION: IV access required. Poor venous access. TECHNIQUE: Patient identity was verified with two patient identifiers. Hands were sanitized. The patient was positioned supine with left arm at 90 degrees. The patient's upper arm vasculature was assessed using ultrasound, and the left basilic vein was externally marked. The vein was suitable for insertion of a 20 gauge 8 cm extended dwell catheter. The sterile kit was opened with additional supplies dropped in. Mask and prep gloves were donned. The underdrape was placed under the patient's arm. The site was prepped with chlorhexidine, and tourniquet was loosely applied. Prep gloves were discarded, and hands were sanitized. Sterile gloves were donned, and the patient's arm was draped. The sterile kit was assembled with needless connector and loop flushed with sterile normal saline. The left basilic vein was then accessed using dynamic ultrasound guidance, and the catheter advanced easily. 1 attempt was required. The tourniquet was released. The flushed loop and needless connector were attached. Blood return was easily aspirated. 10 ml sterile normal saline was delivered via pulsatile flush, and the loop was clamped prior to removal of the syringe to prevent back flow. Skin was prepped and followed by application of a stat-lock and a clear dressing was applied to secure the IV. The patient tolerated the procedure well. 07/16/23 1038 Cosigner Signature (if applicable): CC: ZAIDA Tapia; Dr. Mary Myers MD; Dr. Matt Kramer MD Signed Normal [facility] Serum Treponema species anti body detectionOrdered By: Ema Abarca on 07-16-2023 Treponema sp Ab Ql (S) Non-Reactive [facility] Surgery Specimen Level IIon 07-16-2023 Surgery Specimen Level II Patient Age/Sex Location Account Attending Physician BRIGETTECRYSTAL PATHAKH 33/F WP [id number] Dr. Matt Kramer MD Specimen: [id number] Received: 07/17/23 Status: MARLENY Gruber Num: [id number] Spec Type: FALL TUBES Subm Dr: Dr. Matt Kramer MD HEADER OPERATION: Tubal ligation PRE-OP DIAGNOSIS: Sterilization TISSUE SUBMITTED: Fallopian tubes- stitch in left tube MICROSCOPIC DIAGNOSIS Right fallopian tube, salpingectomy: Complete cross sections of fallopian tube with no pathologic change. Left fallopian tube, salpingectomy: Complete cross sections of fallopian tube with no pathologic change. AM: 07/18/23 MICROSCOPIC DESCRIPTION Slides are reviewed. GROSS DESCRIPTION Received in fixative is one container labeled with the patient's name and designated bilateral fallopian tubes - stitch left tube." The specimen consists of two fallopian tubes with an average length of 8.0 cm and has an average diameter of 0.8 cm. Both fallopian tubes have normal fimbriated ends. No mass lesions are identified. Furnace Charging Machine Operator sections are submitted in two cassettes as follows: 1 - right fallopian tube, 2 - left fallopian tube. / AM: 07/17/23 TC:4 CPT: 09029 x2 Patient Age/Sex Location Account Attending Physician CRYSTAL MACHUCA WP [id number] Dr. Matt Kramer MD Signed (signature on file) Dr. Darien Burgos, 07/18/23 1247 Normal [facility] Comment on above: Performed By: #### P SUII ####[facility] [address] [place], [place], [id number] Type AND Screenon 07-16-2023 ABO and Rh group Nom (Bld) Blood group O Rh(D) positive Normal [facility] Comment on above: Order Comment: Labor Performed By: #### L 100.0100, BTS #### [facility] [address] [place], [address] Ur Drg Scn w/Rflx AMPH Confi rmon 07-16-2023 Amphetamines Ql (U) Normal <1000 ng/mL [facility] Comment on above: Result Comment: DUPL ICATE ORDER Performed By: #### L 505.5002 ####[facility] [address] [place], [address] BARBITIURATES Normal < 200 ng/mL [facility] Comment on above: Result Comment: DUPL ICATE ORDER Performed By: #### L 505.5002 ####[facility] [address] [place], [address] BENZODIAZIPINE Normal < 200 ng/mL [facility] Comment on above: Result Comment: DUPL ICATE ORDER Performed By: #### L 505.5002 ####[facility] [address] [place], [place], [phone] Cocaine Ql (U) Normal < 300 ng/mL [facility] Comment on above: Result Comment: DUPL ICATE ORDER Performed By: #### L 505.5002 ####[facility] [address] [place], [place], [phone] DRUG CONFIRM Normal [facility] Comment on above: Result Comment: DUPL ICATE ORDER Performed By: #### L 505.5002 ####[facility] [address] [place], [address] ECSTACY Normal < 500 ng/mL [facility] Comment on above: Result Comment: DUPL ICATE ORDER Performed By: #### L 505.5002 ####[facility] [address] [place], [address] Methadone Ql (U) Normal < 300 ng/mL [facility] Comment on above: Result Comment: DUPL ICATE ORDER Performed By: #### L 505.5002 ####[facility] [address] [place], [address] Opiates Ql (U) Normal < 300 ng/mL [facility] Comment on above: Result Comment: DUPL ICATE ORDER Performed By: #### L 505.5002 ####[facility] [address] [place], [address] PCP Normal < 25 ng/mL [facility] Comment on above: Result Comment: DUPL ICATE ORDER Performed By: #### L 505.5002 ####[facility] [address] [place], [address] THC Normal < 50 ng/mL [facility] Comment on above: Result Comment: DUPL ICATE ORDER Performed By: #### L 505.5002 ####[facility] [address] [place], [address] VISTA UDS PH Normal [facility] Comment on above: Result Comment: DUPL ICATE ORDER Performed By: #### L 505.5002 ####[facility] [address] [place], [address] Urine Drug Screen (VISTA)on 07-16-2023 AMPHETAMINES Negative Normal <1000 ng/mL [facility] Comment on above: Order Comment: THC,o piods,fentanyl, on prescription subutex Performed By: #### L 505.5000 #### [facility] [address] [place], [address] BARBITIURATES Negative Normal < 200 ng/mL [facility] Comment on above: Order Comment: THC,o piods,fentanyl, on prescription subutex Performed By: #### L 505.5000 #### [facility] [address] [place], [address] BENZODIAZIPINE Negative Normal < 200 ng/mL [facility] Comment on above: Order Comment: THC,o piods,fentanyl, on prescription subutex Performed By: #### L 505.5000 #### [facility] [address] [place], [address] COCAINE Negative Normal < 300 ng/mL [facility] Comment on above: Order Comment: THC,o piods,fentanyl, on prescription subutex Performed By: #### L 505.5000 #### [facility] [address] [place], [address] ECSTACY Negative Normal < 500 ng/mL [facility] Comment on above: Order Comment: THC,o piods,fentanyl, on prescription subutex Performed By: #### L 505.5000 #### [facility] [address] [place], [address] METHADONE Negative Normal < 300 ng/mL [facility] Comment on above: Order Comment: THC,o piods,fentanyl, on prescription subutex Performed By: #### L 505.5000 #### [facility] [address] [place], [place], [facility] OPIATES Negative Normal < 300 ng/mL [facility] Comment on above: Order Comment: THC,o piods,fentanyl, on prescription subutex Performed By: #### L 505.5000 #### [facility] Laboratory [facility] [place], [address] PCP Negative Normal < 25 ng/mL [facility] Comment on above: Order Comment: THC,o piods,fentanyl, on prescription subutex Performed By: #### L [id number] #### [facility] Laboratory [address] [place], [address] THC Negative Normal < 50 ng/mL [facility] Comment on above: Order Comment: THC,o piods,fentanyl, on prescription subutex Performed By: #### L [id number] #### [facility] Laboratory [address] [place], [address] VISTA UDS PH 6 Normal [facility] Comment on above: Order Comment: THC,o piods,fentanyl, on prescription subutex Performed By: #### L [id number] #### [facility] Laboratory [address] [place], [address] Urine phencyclidine (PCP) de tectionOrdered By: Matt Kramer on 07-16-2023 Phencyclidine Ql (U) Negative < 25 ng/mL [facility] URINE OB DIP B/Oon 4 Glucose Ql (U) Negative Neg mg/dL [facility] Interpretation and review of laboratory results Normal [facility] Protein.monoclonal (U) [Mass/Vol] Negative Neg mg/dL [facility] URINE OB DIP B/Oon 4 Glucose Ql (U) Negative Neg mg/dL [facility] Protein.monoclonal (U) [Mass/Vol] trace Neg mg/dL [facility] ROUTINE, GROUP B ST REP PCRon 06-27-2023 S. agalactiae Org specific cx Ql (Vag fld) Negative Negative [facility] Examination level ultrasound on 06-26-2023 [facility] URINE OB DIP B/Oon 4 Glucose Ql (U) Negative Neg mg/dL [facility] Protein.monoclonal (U) [Mass/Vol] Negative Neg mg/dL [facility] CBC panel Auto (Bld)on 06-10 Erythrocyte distribution width (RBC) [Ratio] 12.9 % 11.5 - 15.0 % [facility] Hematocrit (Bld) [Volume fraction] 32.6 % Low 36.0 - 46.0 % [facility] Hemoglobin (Bld) [Mass/Vol] 11.0 g/dL Low 11.5 - 15.5 g/dL [facility] MCH (RBC) [Entitic mass] 29.8 pg 26.0 - 34.0 pg [facility] MCHC (RBC) [Mass/Vol] 33.7 g/dL 30.5 - 36.0 g/dL [facility] MCV (RBC) [Entitic vol] 88.3 fL 80.0 - 100.0 fL [facility] Nucleated RBC (Bld) [#/Vol] <0.01 k/uL [facility] Platelet mean volume (Bld) [Entitic vol] 11.0 fL 9.0 - 12.7 fL [facility] Platelets (Bld) [#/Vol] 242 10*3/uL 150 - 400 k/uL [facility] RBC (Bld) [#/Vol] 3.69 10*6/uL Low 3.90 - 5.2 0 m/uL [facility] WBC (Bld) [#/Vol] 13.68 10*3/uL High 3.70 - 11 .00 k/uL [facility] URINE OB DIP B/Oon 4 Glucose Ql (U) Negative Neg mg/dL [facility] Protein.monoclonal (U) [Mass/Vol] Negative Neg mg/dL [facility] Examination level ultrasound on 05-28-2023 [facility] URINE OB DIP B/Oon 4 Glucose Ql (U) Negative Neg mg/dL [facility] Protein.monoclonal (U) [Mass/Vol] trace Neg mg/dL [facility] URINE OB DIP B/Oon 4 Glucose Ql (U) Negative Neg mg/dL [facility] Protein.monoclonal (U) [Mass/Vol] Negative Neg mg/dL [facility] ALPHA FETOPRO MATERNALon AFP, MATERNAL 1.06 MoM [facility] Date of Collection #1 02/21/23 [facility] Date Received 02/22/23 [facility] ASHISH 07/22/23 [facility] Gestation at Date of Sample 18 weeks 3 days (by dates) [facility] Insulin dependent diabetes None [facility] IVF No [facility] LMP 10/15/22 [facility] Maternal AFP Comment See comments below [facility] Maternal Age at ASHISH 33 years [facility] Patient's Weight 173 lb. [facility] Interpretation Negative Scre en Negative [facility] Previous NTD None [facility] Risk of NTD ;1:7100 [facility] Sample #1 [id number] [facility] Staff Review Reviewed by Wojciech Mason MD, Ph.D ([id number]) [facility] URINE OB DIP B/Oon 3 Glucose Ql (U) Negative Neg mg/dL [facility] Protein.monoclonal (U) [Mass/Vol] Negative Neg mg/dL [facility] NUCHAL TRANSLUCENCY WHIon [facility] URINE OB DIP B/Oon 3 Glucose Ql (U) Negative Neg mg/dL [facility] Protein.monoclonal (U) [Mass/Vol] Negative Neg mg/dL [facility] Influenza virus A and B RNA and SARS-CoV-2 (COVID-19) N gene panel NAKUL+probe (Resp)on 12-24-2022 FLUAV RNA NAKUL+probe Ql (Unsp spec) Not detected Not Detected [facility] FLUBV RNA NAKUL+probe Ql (Unsp spec) Not detected Not Detected [facility] SARS-CoV-2 (COVID-19) RNA NAKUL+probe Ql (Resp) Not detected See comment [facility] Basophil percentageOrdered B y: Amilcar Ott on 11-21-2022 Chloride [Moles/Vol] 108 mmol/L 98-107 [facility] Glucose [Mass/Vol] 96 mg/dL 74-106 [facility] Potassium [Moles/Vol] 4.0 mmol/L 3.5-5.1 [facility] Sodium [Moles/Vol] 137 mmol/L 136-145 [facility] Laboratory - Chemistry and C hemistry - challengeOrdered By: Amilcar Ott on 11-21-2022 CO2 [Moles/Vol] 24.0 mmol/L 21.0-32.0 [facility] Urea nitrogen/Creatinine [Mass ratio] 18.2 mg/mg 10-20 [facility] No Panel InformationOrdered By: Amilcar Ott on 11-21-2022 Estimated GFR (MDRD) Amer 123 mL/min >60 [facility] Comment on above: GFR Calc Estimated GFR (MDRD) Non-Af Amer 102 mL/min >60 [facility] Comment on above: Non- GFR Calc Davey Level < 0.20 mmol/L 0.60-1.20 [facility] Thyroid Stimulating Hormone (TSH) 2.19 uIU/mL 0.358-3.74 [facility] Serum or plasma calcium lito urement (mass/volume)Ordered By: Amilcar Ott on 11-21-2022 Calcium [Mass/Vol] 8.8 mg/dL 8.5-10.1 [facility] Serum or plasma creatinine m easurement (mass/volume)Ordered By: Amilcar Ott on 11-21-2022 Creatinine [Mass/Vol] 0.72 mg/dL 0.55-1.02 [facility] Comment on above: The validity of the calculated GFR & GFRAA in patients over 70 years has not been determined. Clinical correlation is essential. Serum or plasma urea nitroge n measurement (mass/volume)Ordered By: Amilcar Ott on 11-21-2022 Urea nitrogen [Mass/Vol] 13 mg/dL 7-18 [facility] Thin prep Papanicolaou smear with manual screeningOrdered By: Amilcar Ott on 11-21-2022 Thin prep Papanicolaou smear with manual screening 5 5-15 [facility] Laboratory - Chemistry and C hemistry - challengeOrdered By: Roger Ortiz on 10-19-2022 HCG ( test) Ql (U) Negative [facility] Comment on above: Very dilute urine sp ecimens, as indicated by a low specificgravity, may not contain front desk representative levels of hCG. If is still suspected, a first morning urinespecimen should be collected 48 hours later and tested. Albumin Elph [Mass/Vol]Order ed By: Luis Daniel Hutton on 09-14-2022 Albumin [Mass/Vol] Not Reportable [facility] Basophil percentageOrdered B y: Luis Daniel Hutton on 09-14-2022 Amylase [Catalytic activity/Vol] 58 U/L 25-115 [facility] Basophil percentage < 0.2 AI 0.0-0.9 [facility] LDH [Catalytic activity/Vol] 163 U/L 84-246 [facility] Erythrocyte sedimentation ra teOrdered By: Luis Daniel Hutton on 09-14-2022 ESR (Bld) [Velocity] 3 mm/h 0-30 [facility] Hemoglobin in reticulocytes (mass per reticulocyte)Ordered By: Luis Daniel Hutton on 09-14-2022 Hemoglobin (Reticulocytes) [Entitic mass] 31.7 pg 30-35 [facility] Interpretation of serum or p lasma protein pattern by immunofixation (narrative resultOrdered By: Luis Daniel Hutton on 09-14-2022 Protein Fractions Immunofixation Augie [Interp] Not Reportable [facility] Iron measurement (mass/mass) Ordered By: Luis Daniel Hutton on 09-14-2022 Iron (Unsp spec) [Mass/Mass] 98 ug/dL 50-170 [facility] Laboratory - Chemistry and C hemistry - challengeOrdered By: Luis Daniel Hutton on 09-14-2022 Free T4 [Mass/Vol] 0.96 ng/dL 0.76-1.46 [facility] Lipase [Catalytic activity/Vol] 18 U/L 13-75 [facility] Comment on above: Please note:LIPASE r evised reference range effective 22. New Lipase methodology. Expected to produce lower values than the previous assay method. NEW Reference Range: 13 - 75 U/L No Panel InformationOrdered By: Luis Daniel Hutton on 09-14-2022 Centromere B Antibody <0.2 AI 0.0-0.9 [facility] Free Triiodothyronine (T3) pg/dL 2.9 pg/mL 2.18-3.98 [facility] Hepatitis B Core IgM Antibody Not Reportable [facility] Hepatitis Be Antibody Not Reportable [facility] Hepatitis Be Antigen Not Reportable [facility] Hepatitis Interpretation See comment [facility] Comment on above: TEST RESULTS LIMITSH BV Screening and DiagnosisHBsAg Screen Negative NegativeHep B Surface Ab, Qual Reactive Non Reactive: Inconsistent with immunity, less than 10 mIU/mL Reactive: Consistent with immunity, greater than 9.9 mIU/mLHep B Core Ab, Tot Negative NegativeRfx to HBc IgM Reflex criteria was not met.Interpretation HBV Serology Interpretation Chart Int erpretation HBsAg anti-HBs anti-HBc anti-HBc IgM ----- Bo - Analyte present: + Analyte absent: - Test not indicated: TNI ----- Susceptible (never infected and no evidence - - - TNI of vaccination) ----- Immune due to natural resolved infection - + + TNI ----- Immune due to vaccination - + - TNI ----- Acute Infection + - + + ----- Chronic infection + - + - ----- Interpretation unclear* - - + +/- ----- *Multiple possibilities: resolved infection (most common); false- positive anti-HBc (susceptible); "low-level" chronic infection"; resolving acute infection. TESTING PERFORMED AT [facility]. ORIGINAL REPORT ON FILE IN LAB CONTAINS ADDITIONAL TEST SITE INFORMATION. Immature Reticulocyte Fraction 2.20 % 3.00-15.90 [facility] Immunoglobulin E Not Reportable [facility] Miscellaneous Test See comment [facility] Comment on above: TEST RESULT LIMITSIB D Expanded Panel Juan Pablo 15 units 0-50 Negative <45 Equivocal 45 - 50 Positive >50 ACCA 16 units 0-90 Negative <80 Equivocal 80 - 90 Positive >90 ALCA 24 units 0-60 Negative <55 Equivocal 55 - 60 Positive >60 AMCA 17 units 0-100 Negative < 90 Equivocal 90 - 100 Positive >100 This test was developed and its performance characteristics determined by [facility]. It has not been cleared or approved by the Food and Drug Administration. The FDA has determined that such clearance or approval is not necessary.Atypical pANCA Negative Negative Comments Pattern is not suggestive of Inflammatory Bowel Disease __ TESTING PERFORMED AT [facility]. ORIGINAL REPORT ON FILE IN LAB CONTAINS ADDITIONAL TEST SITE INFORMATION. Reticulocyte Count 0.77 % 0.5-1.5 [facility] Antibody <0.2 AI 0.0-0.9 [facility] Thyroid Stimulating Hormone (TSH) 1.40 uIU/mL 0.358-3.74 [facility] Total Iron Binding Capacity 381 ug/dL 250-450 [facility] Serum DNA double strand anti body assay (units/volume)Ordered By: Luis Daniel Hutton on 09-14-2022 DNA double strand Ab Qn (S) [IU]/mL 0-9 [facility] Comment on above: Negative <5 Equivoca l 5 - 9 Positive >9 Serum Adrienne-1 antibody assay (u nits/volume)Ordered By: Luis Daniel Hutton on 09-14-2022 Adrienne-1 extractable nuclear Ab Qn (S) <0.2 AI 0.0-0.9 [facility] Serum Scl-70 extractable nuc lear antibody assay (units/volume)Ordered By: Luis Daniel Hutton on 09-14-2022 SCL-70 extractable nuclear Ab Qn (S) <0.2 AI 0.0-0.9 [facility] Serum Antony extractable nucl ear antibody detectionOrdered By: Luis Daniel Hutton on 09-14-2022 Antony extractable nuclear Ab Ql (S) <0.2 AI 0.0-0.9 [facility] Serum ldosm-2-fttgeaeg measu rement by electrophoresisOrdered By: Luis Daniel Hutton on 09-14-2022 Alpha 1 globulin Elph [Mass/Vol] Not Reportable [facility] Serum classic neutrophil cyt oplasmic antibody assay (units/volume)Ordered By: Luis Daniel Hutton on 09-14-2022 Neutrophil cytoplasmic Ab.classic Qn (S) See comment [facility] Comment on above: TEST RESULTS LIMITSA ntineutrophil Cytoplasmic AbCytoplasmic (C-ANCA) <1:20 titer Neg:<1:20Perinuclear (P-ANCA) <1:20 titer Neg:<1:20The presence of positive fluorescence exhibiting P-ANCA or C-ANCA patterns alone is not specific for the diagnosis of Jackie's Granulomatosis (WG) or microscopic polyangiitis. Decisions about treatment should not be based solely on ANCA IFA results. The [employer] ANCA [employer] Consensus recommends follow up testing of positive sera with both OH-3 and MPO-ANCA enzyme immunoassays. As many as 5% serum samples are positive only by EIA.Ref. AM J Clin Pathol 1999;111:507-513.Atypical pANCA <1:20 titer Neg:<1:20The atypical pANCA pattern has been observed in a significant percentage of patients with ulcerative colitis, primary sclerosing cholangitis and autoimmune hepatitis. TESTING PERFORMED AT [facility]. ORIGINAL REPORT ON FILE IN LAB CONTAINS ADDITIONAL TEST SITE INFORMATION. Serum hepatitis B virus core antibody detectionOrdered By: Luis Daniel Hutton on 09-14-2022 HBV core Ab Ql (S) Not Reportable [facility] Serum hepatitis B virus surf adan antibody assay (units/volume)Ordered By: Lui sDaniel Hutton on 09-14-2022 HBV surface Ab Qn (S) Not Reportable [facility] Serum or plasma C reactive p rotein measurement (mass/volume)Ordered By: Luis Daniel Hutton on 09-14-2022 CRP [Mass/Vol] mg/L 0.0-3.0 [facility] Comment on above: C-Reactive Protein ( CRP) provides useful information for thediagnosis, therapy and monitoring of inflammatory processesand associated diseases. For the evaluation of Relative Riskfor Cardiovascular Disease, a High Sensitivity CRP (HSCRP)should be ordered. Serum or plasma IgA measurem ent (mass/volume)Ordered By: Luis Daniel Hutton on 09-14-2022 IgA [Mass/Vol] Not Reportable [facility] Serum or plasma IgG measurem ent (mass/volume)Ordered By: Luis Danielpaulina Hutton on 09-14-2022 IgG [Mass/Vol] Not Reportable [facility] Serum or plasma IgM measurem ent (mass/volume)Ordered By: Luis Daniel Hutton on 09-14-2022 IgM [Mass/Vol] Not Reportable [facility] Serum or plasma beta globuli n measurement by electrophoresis (mass/volume)Ordered By: Luis Daniel Hutton on 09-14-2022 Beta globulin Elph [Mass/Vol] Not Reportable [facility] Serum or plasma ferritin deondre surement (mass/volume)Ordered By: Luis Daniel Hutton on 09-14-2022 Ferritin [Mass/Vol] 12 ng/mL 8-252 [facility] Serum or plasma gamma globul in measurement by electrophoresis (mass/volume)Ordered By: Luis Daniel Hutton on 09-14-2022 Gamma globulin Elph [Mass/Vol] Not Reportable [facility] Serum or plasma gastrin lito urement (mass/volume)Ordered By: Luis Daniel Hutton on 09-14-2022 Gastrin [Mass/Vol] See comment [facility] Comment on above: TEST RESULTS LIMITS Gastrin, Serum 37 pg/mL 0-115[employer] Immulite 2000 Immunochemiluminometric assay (ICMA)Values obtained with different assay methods or kits cannot be used interchangeably. Results cannot be interpreted as absolute evidence of the presence or absence of malignant disease. TESTING PERFORMED AT [facility]. ORIGINAL REPORT ON FILE IN LAB CONTAINS ADDITIONAL TEST SITE INFORMATION. Serum or plasma hepatitis B virus surface antigen detection by immunoassayOrdered By: Luis Daniel Hutton on 09-14-2022 HBV surface Ag IA Ql Not Reportable [facility] Serum perinuclear neutrophil cytoplasmic antibody titer by immunofluorescenceOrdered By: Luis Danile Hutton on 09-14-2022 Neutrophil cytoplasmic Ab.perinuclear IF (S) [Titer] Not Reportable [facility] Thin prep Papanicolaou smear with manual screeningOrdered By: Luis Daniel Hutton on 09-14-2022 Thin prep Papanicolaou smear with manual screening Not Reportable [facility] Total protein bloodOrdered B y: Luis Daniel Friend on 09-14-2022 Protein [Mass/Vol] See comment [facility] Comment on above: TEST RESULTS LIMITSI FE and PE, SerumImmunoglobulin G, Qn,Serum 1141 mg/dL [id number] A, Qn,Serum 139 mg/dL 87-352Immunoglobulin M, Qn,Serum 101 mg/dL 26-217Protein, Total 6.9 g/dL 6.0-8.5Albumin 3.8 g/dL 2.9-4.5Mcvay-1-Pbzvhknm 0.3 g/dL 0.0-0.8Gglui-8-Ulbirzyw 0.7 g/dL 0.4-1.0Beta Globulin 0.9 g/dL 0.7-1.3Gamma Globulin 1.3 g/dL 0.4-1.8M-Shola Not Observed g/dL Not ObservedGlobulin, Total 3.1 g/dL 2.2-3.9A/G Ratio 1.3 0.7-1.7Immunofixation Result, Serum No monoclonality detected.Please note: 01Protein electrophoresis scan will follow via computer, mail, orcourier delivery. TESTING PERFORMED AT [facility]. ORIGINAL REPORT ON FILE IN LAB CONTAINS ADDITIONAL TEST SITE INFORMATION. No Panel InformationOrdered By: Dr. Myers on 08-07-2022 Giardia Antigen (GABRIELLA) [facility] Ova and parasitesOrdered By: Dr. Myers on 08-07-2022 Ova and parasites identified LM Nom (Unsp spec) [facility] Absolute lymphocyte countOrd ered By: Dr. Myers on 07-31-2022 Lymphocytes Auto (Unsp spec) [#/Vol] 2.79 10*3/uL 0.83-4.51 [facility] Basophil percentageOrdered B y: Dr. Myers on 07-31-2022 Basophils/100 WBC (Bld) 0.6 % 0-1 [facility] Bilirubin [Mass/Vol] 0.20 mg/dL 0.20-1.00 [facility] Comment on above: For patients on eltr ombopag therapy, use of Dimension Volga TBIL is not recommended. Chloride [Moles/Vol] 107 mmol/L 98-107 [facility] Eosinophils/100 WBC (Bld) 3.1 % 0-5 [facility] Glucose [Mass/Vol] 99 mg/dL 74-106 [facility] Neutrophils (Bld) [#/Vol] 4.6 10*3/uL 2.0-7.7 [facility] Neutrophils/100 WBC (Bld) 54.0 % 47-70 [facility] Potassium [Moles/Vol] 4.4 mmol/L 3.5-5.1 [facility] Protein [Mass/Vol] 6.9 g/dL 6.4-8.2 [facility] Sodium [Moles/Vol] 137 mmol/L 136-145 [facility] WBC (Bld) [#/Vol] 8.4 10*3/uL 4.4-11.0 [facility] Blood erythrocytes count (nu mber/volume)Ordered By: Dr. Myers on 07-31-2022 RBC (Bld) [#/Vol] 4.08 10*6/uL 4.2-5.4 [facility] Blood hemoglobin measurement (mass/volume)Ordered By: Dr. Myers on 07-31-2022 Hemoglobin (Bld) [Mass/Vol] 11.9 g/dL 12.0-15.0 [facility] Blood lymphocytes/100 leukoc ytesOrdered By: Dr. Myers on 07-31-2022 Lymphocytes/100 WBC (Bld) 33.1 % 19-41 [facility] Blood monocytes/100 leukocyt esOrdered By: Dr. Myers on 07-31-2022 Monocytes/100 WBC (Bld) 8.8 % 0-10 [facility] Blood platelet mean volumeOr dered By: Dr. Myers on 07-31-2022 Platelet mean volume (Bld) [Entitic vol] 11.9 fL 6.2-12.0 [facility] Determination of erythrocyte mean corpuscular volume (MCV)Ordered By: Dr. Myers on 07-31-2022 MCV (RBC) [Entitic vol] 91.7 fL 81-99 [facility] Hematocrit Auto (Bld) [Volum e fraction]Ordered By: Dr. Myers on 07-31-2022 Hematocrit (Bld) [Volume fraction] 37.4 % 37-47 [facility] Laboratory - Chemistry and C hemistry - challengeOrdered By: Dr. Myers on 07-31-2022 ALP [Catalytic activity/Vol] 45 U/L 45-117 [facility] ALT [Catalytic activity/Vol] 25 U/L 13-56 [facility] CO2 [Moles/Vol] 23.0 mmol/L 21.0-32.0 [facility] Globulin (S) [Mass/Vol] 3.4 g/dL 2.2-4.2 [facility] Urea nitrogen/Creatinine [Mass ratio] 20.6 mg/mg 10-20 [facility] Laboratory - Hematology and Cell countsOrdered By: Dr. Myers on 07-31-2022 Erythrocyte distribution width (RBC) [Entitic vol] 49.5 fL 35.1-43.9 [facility] Erythrocyte distribution width (RBC) [Ratio] 14.8 % 11.6-14.6 [facility] Immature granulocytes/100 WBC (Bld) 0.400 % 0.0-0.9 [facility] Comment on above: IG% - Immature Granu locytes (promyelocytes, myelocytes and metamyelocytes) > 1% indicates that a LEFT SHIFT is Present. MCH (RBC) [Entitic mass] 29.2 pg 27.0-32.0 [facility] Nucleated RBC/100 WBC (Bld) [Ratio] 0 % 0-5 [facility] MCHC Auto (RBC) [Mass/Vol]Or dered By: Dr. Myers on 07-31-2022 MCHC (RBC) [Mass/Vol] 31.8 g/dL 32-36 [facility] No Panel InformationOrdered By: Dr. Myers on 07-31-2022 Endomysial IgA Antibody Negative Negative [facility] Estimated GFR (MDRD) Amer 112 mL/min >60 [facility] Comment on above: GFR Calc Estimated GFR (MDRD) Non-Af Amer 93 mL/min >60 [facility] Comment on above: Non- GFR Calc No Panel InformationOrdered By: Mary Myers on 07-31-2022 Giardia Antigen (GABRIELLA) [facility] Ova and parasitesOrdered By: Mary Myers on 07-31-2022 Ova and parasites identified LM Nom (Unsp spec) [facility] Platelets bldOrdered By: Dr. Myers on 07-31-2022 Platelets (Bld) [#/Vol] 278 10*3/uL 150-450 [facility] Serum IgA measurement (units /volume)Ordered By: Dr. Myers on 07-31-2022 IgA Qn (S) 131 mg/dL 87-352 [facility] Comment on above: Performed at: [address] Director: Jose Rodriguez PhD, Phone: [phone] Serum or plasma albumin lito urement (mass/volume)Ordered By: Dr. Myers on 07-31-2022 Albumin [Mass/Vol] 3.5 g/dL 3.2-5.0 [facility] Serum or plasma albumin/glob ulin mass ratioOrdered By: Dr. Myers on 07-31-2022 Albumin/Globulin [Mass ratio] 1.0 {ratio} 0.9-2.4 [facility] Serum or plasma calcium lito urement (mass/volume)Ordered By: Dr. Myers on 07-31-2022 Calcium [Mass/Vol] 9.0 mg/dL 8.5-10.1 [facility] Serum or plasma creatinine m easurement (mass/volume)Ordered By: Dr. Myers on 07-31-2022 Creatinine [Mass/Vol] 0.78 mg/dL 0.55-1.02 [facility] Comment on above: The validity of the calculated GFR & GFRAA in patients over 70 years has not been determined. Clinical correlation is essential. Serum or plasma urea nitroge n measurement (mass/volume)Ordered By: Dr. Myers on 07-31-2022 Urea nitrogen [Mass/Vol] 16 mg/dL 7-18 [facility] Serum tissue transglutaminas e IgA antibody assay (units/volume)Ordered By: Dr. Myers on 07-31-2022 tTG IgA Qn (S) <2 U/mL 0-3 [facility] Comment on above: Negative 0 - 3 Weak Positive 4 - 10 Positive >10 Tissue Transglutaminase (tTG) has been identified as the endomysial antigen. Studies have demonstr- ated that endomysial IgA antibodies have over 99% specificity for gluten sensitive enteropathy. Thin prep Papanicolaou smear with manual screeningOrdered By: Dr. Myers on 07-31-2022 Thin prep Papanicolaou smear with manual screening 16 U/L 15-37 [facility] Thin prep Papanicolaou smear with manual screening 7 5-15 [facility] SYPHILIS SCREENING WITH REFL EXon 06-05-2022 SYPHILIS TOTAL AB Non-Reactive Normal NONREACTIVE [facility] Comment on above: Result Comment: No s ignificant level of Treponema pallidum antibody detected. Repeat testing in 2 to 4 weeks may be considered if early infection or incubating syphilis infection is suspected. Performed By: #### S [facility] #### [facility] [address] [place] [address] ALCOHOLon 06-04-2022 ALCOHOL Canceled Normal [facility] Comment on above: Order Comment: TEST ALCOHOL WAS CANCELLED, 06/04/2022 12:36 spoke with Rodolfo Tinoco rn to recollect. Result Comment: FOR MEDICAL USE ONLY. Performed By: #### A #### [facility] [address] [place] [id number] CBC AND DIFFERENTIALon 06-04 % AUTOMATED IMMATURE GRAN Canceled Normal [facility] Comment on above: Order Comment: TEST T-SPOT TB WAS CANCELLED, 06/04/2022 15:35 QNS, PLEASE RESUBMIT.. Result Comment: Myesha ture Granulocyte Count (IG) includes promyelocytes, myelocytes and metamyelocytes but does not include bands. Percent differential counts (%) should be interpreted in the context of the absolute cell counts (cells/L). Performed By: #### T SPOT #### [facility] [address] [place] [address] % BASOPHIL Canceled Normal [facility] Comment on above: Order Comment: TEST T-SPOT TB WAS CANCELLED, 06/04/2022 15:35 QNS, PLEASE RESUBMIT.. Performed By: #### T SPOT #### [facility] [address] [place] [address] % EOSINOPHIL Canceled Normal [facility] Comment on above: Order Comment: TEST T-SPOT TB WAS CANCELLED, 06/04/2022 15:35 QNS, PLEASE RESUBMIT.. Performed By: #### T SPOT #### [facility] [address] [place] [address] % LYMPHOCYTE Canceled Normal [facility] Comment on above: Order Comment: TEST T-SPOT TB WAS CANCELLED, 06/04/2022 15:35 QNS, PLEASE RESUBMIT.. Performed By: #### T SPOT #### [facility] [address] [place] [address] % MONOCYTE Canceled Normal [facility] Comment on above: Order Comment: TEST T-SPOT TB WAS CANCELLED, 06/04/2022 15:35 QNS, PLEASE RESUBMIT.. Performed By: #### T SPOT #### [facility] [address] [place] [address] % NEUTROPHIL Canceled Normal [facility] Comment on above: Order Comment: TEST T-SPOT TB WAS CANCELLED, 06/04/2022 15:35 QNS, PLEASE RESUBMIT.. Performed By: #### T SPOT #### [facility] [address] [place] [address] BASOPHIL Canceled Normal [facility] Comment on above: Order Comment: TEST T-SPOT TB WAS CANCELLED, 06/04/2022 15:35 QNS, PLEASE RESUBMIT.. Performed By: #### T SPOT #### [facility] [address] [place] [address] DIFFERENTIAL Canceled Normal [facility] Comment on above: Order Comment: TEST T-SPOT TB WAS CANCELLED, 06/04/2022 15:35 QNS, PLEASE RESUBMIT.. Performed By: #### T SPOT #### [facility] [address] [place] [address] EOSINOPHIL Canceled Normal [facility] Comment on above: Order Comment: TEST T-SPOT TB WAS CANCELLED, 06/04/2022 15:35 QNS, PLEASE RESUBMIT.. Performed By: #### T SPOT #### [facility] [address] [place] [address] HCT Canceled Normal [facility] Comment on above: Order Comment: TEST T-SPOT TB WAS CANCELLED, 06/04/2022 15:35 QNS, PLEASE RESUBMIT.. Performed By: #### T SPOT #### [facility] [address] [place] [address] HGB Canceled Normal [facility] Comment on above: Order Comment: TEST T-SPOT TB WAS CANCELLED, 06/04/2022 15:35 QNS, PLEASE RESUBMIT.. Performed By: #### T SPOT #### [facility] [address] [place] [address] LYMPHOCYTE Canceled Normal [facility] Comment on above: Order Comment: TEST T-SPOT TB WAS CANCELLED, 06/04/2022 15:35 QNS, PLEASE RESUBMIT.. Performed By: #### T SPOT #### [facility] [address] [place] [address] MCHC Canceled Normal [facility] Comment on above: Order Comment: TEST T-SPOT TB WAS CANCELLED, 06/04/2022 15:35 QNS, PLEASE RESUBMIT.. Performed By: #### T SPOT #### [facility] [address] [place] [address] MCV Canceled Normal [facility] Comment on above: Order Comment: TEST T-SPOT TB WAS CANCELLED, 06/04/2022 15:35 QNS, PLEASE RESUBMIT.. Performed By: #### T SPOT #### [facility] [address] [place] [address] MONOCYTE Canceled Normal [facility] Comment on above: Order Comment: TEST T-SPOT TB WAS CANCELLED, 06/04/2022 15:35 QNS, PLEASE RESUBMIT.. Performed By: #### T SPOT #### [facility] [address] [place] [address] NEUTROPHIL Canceled Normal [facility] Comment on above: Order Comment: TEST T-SPOT TB WAS CANCELLED, 06/04/2022 15:35 QNS, PLEASE RESUBMIT.. Performed By: #### T SPOT #### [facility] [address] [place] [address] [facility] Comment on above: Order Comment: TEST T-SPOT TB WAS CANCELLED, 06/04/2022 15:35 QNS, PLEASE RESUBMIT.. Performed By: #### T SPOT #### [facility] [address] [place] [address] [facility] Comment on above: Order Comment: TEST T-SPOT TB WAS CANCELLED, 06/04/2022 15:35 QNS, PLEASE RESUBMIT.. Performed By: #### T SPOT #### [facility] [address] [place] [address] [facility] Comment on above: Order Comment: TEST T-SPOT TB WAS CANCELLED, 06/04/2022 15:35 QNS, PLEASE RESUBMIT.. Performed By: #### T SPOT #### [facility] [address] [place] [address] RDW-CV Canceled [facility] Comment on above: Order Comment: TEST T-SPOT TB WAS CANCELLED, 06/04/2022 15:35 QNS, PLEASE RESUBMIT.. Performed By: #### T SPOT #### [facility] [address] [place] [address] [facility] Comment on above: Order Comment: TEST T-SPOT TB WAS CANCELLED, 06/04/2022 15:35 QNS, PLEASE RESUBMIT.. Performed By: #### T SPOT #### [facility] [address] [facility] [address] COMPREHENSIVE PANELon 2022 ALBUMIN Canceled Normal [place] Comment on above: Order Comment: TEST COMPREHENSIVE PANEL WAS CANCELLED, 06/04/2022 12:37 spoke with Eugene Reynolds rn to recollect. Performed By: #### C MP #### [address] [address] ALKALINE PHOSPHATASE Canceled Normal [place] Comment on above: Order Comment: TEST COMPREHENSIVE PANEL WAS CANCELLED, 06/04/2022 12:37 spoke with Eugene Reynolds rn to recollect. Performed By: #### C MP #### [address] [address] ALT Canceled Normal [facility] Comment on above: Order Comment: TEST COMPREHENSIVE PANEL WAS CANCELLED, 06/04/2022 12:37 spoke with Eugene Reynolds rn to recollect. Result Comment: Theresa ents treated with Sulfasalazine may generate falsely decreased results for ALT. Performed By: #### C MP #### [address] [address] ANION GAP Canceled Normal [facility] Comment on above: Order Comment: TEST COMPREHENSIVE PANEL WAS CANCELLED, 06/04/2022 12:37 spoke with Eugene Reynolds rn to recollect. Performed By: #### C MP #### [address] [address] AST Canceled Normal [facility] Comment on above: Order Comment: TEST COMPREHENSIVE PANEL WAS CANCELLED, 06/04/2022 12:37 spoke with Eugene Reynolds rn to recollect. Performed By: #### C MP #### [address] [address] BICARBONATE Canceled Normal [facility] Comment on above: Order Comment: TEST COMPREHENSIVE PANEL WAS CANCELLED, 06/04/2022 12:37 spoke with Eugene Reynolds rn to recollect. Performed By: #### C MP #### [address] [address] BILIRUBIN,TOTAL Canceled Normal [place] Comment on above: Order Comment: TEST COMPREHENSIVE PANEL WAS CANCELLED, 06/04/2022 12:37 spoke with Eugene Reynolds rn to recollect. Performed By: #### C MP #### [address] [address] CALCIUM Canceled Normal [place] Comment on above: Order Comment: TEST COMPREHENSIVE PANEL WAS CANCELLED, 06/04/2022 12:37 spoke with Eugene Reynolds rn to recollect. Performed By: #### C MP #### [address] [address] CHLORIDE Canceled Normal [place] Comment on above: Order Comment: TEST COMPREHENSIVE PANEL WAS CANCELLED, 06/04/2022 12:37 spoke with Eugene Reynolds rn to recollect. Performed By: #### C MP #### [address] [address] CREATININE Canceled Normal [facility] Comment on above: Order Comment: TEST COMPREHENSIVE PANEL WAS CANCELLED, 06/04/2022 12:37 spoke with Eugene Reynolds rn to recollect. Performed By: #### C MP #### [address] [address] eGFR FEMALE Canceled Normal [place] Comment on above: Order Comment: TEST COMPREHENSIVE PANEL WAS CANCELLED, 06/04/2022 12:37 spoke with Eugene Reynolds rn to recollect. Result Comment: CALC ULATIONS OF ESTIMATED GFR ARE PERFORMED USING THE 2020 CKD-EPI STUDY REFIT EQUATION WITHOUT THE RACE VARIABLE FOR THE IDMS-TRACEABLE CREATININE METHODS. https://jasn.asnjournals.org/content/early//ASN.2020 836395 Performed By: #### C MP #### [address] [address] eGFR MALE Canceled Normal [place] Comment on above: Order Comment: TEST COMPREHENSIVE PANEL WAS CANCELLED, 06/04/2022 12:37 spoke with Eugene Reynolds rn to recollect. Result Comment: CALC ULATIONS OF ESTIMATED GFR ARE PERFORMED USING THE 2020 CKD-EPI STUDY REFIT EQUATION WITHOUT THE RACE VARIABLE FOR THE IDMS-TRACEABLE CREATININE METHODS. https://jasn.asnjournals.org/content//ASN.2020 196893 Performed By: #### C MP #### [address] [address] GLUCOSE Canceled Normal [facility] Comment on above: Order Comment: TEST COMPREHENSIVE PANEL WAS CANCELLED, 06/04/2022 12:37 spoke with Eugene Reynolds rn to recollect. Performed By: #### C MP #### [address] [address] POTASSIUM Canceled Normal [facility] Comment on above: Order Comment: TEST COMPREHENSIVE PANEL WAS CANCELLED, 06/04/2022 12:37 spoke with Eugene Reynolds rn to recollect. Performed By: #### C MP #### [address] [address] SODIUM Canceled Normal [facility] Comment on above: Order Comment: TEST COMPREHENSIVE PANEL WAS CANCELLED, 06/04/2022 12:37 spoke with Eugene Reynolds rn to recollect. Performed By: #### C MP #### [address] [address] TOTAL PROTEIN Canceled Normal [facility] Comment on above: Order Comment: TEST COMPREHENSIVE PANEL WAS CANCELLED, 06/04/2022 12:37 spoke with Eugene Reynolds rn to recollect. Performed By: #### C MP #### [address] [address] UREA NITROGEN Canceled Normal [facility] Comment on above: Order Comment: TEST COMPREHENSIVE PANEL WAS CANCELLED, 06/04/2022 12:37 spoke with Eugene Reynolds rn to recollect. Performed By: #### C MP #### [address] [address] HEPATITIS PANEL,ACUTE (HCFA) on 06-04-2022 HEP.B SURFACE AG Canceled Normal [facility] Comment on above: Order Comment: TEST HEPATITIS PANEL,ACUTE (HCFA) WAS CANCELLED, 06/04/2022 12:36 spoke with Eugene Reynolds rn to recollect. Result Comment: Biot in interference may cause falsely decreased results. Patients taking a Biotin dose of up to 5 mg/day should refrain from taking Biotin for 24 hours before sample collection. Providers may contact their local laboratory for further information. Performed By: #### H EPA2 #### [facility] [address] [place] [id number] HEPATITIS A AB-IGM Canceled Normal [place] Comment on above: Order Comment: TEST HEPATITIS PANEL,ACUTE (HCFA) WAS CANCELLED, 06/04/2022 12:36 spoke with Eugene Reynolds rn to recollect. Result Comment: Biot in interference may cause falsely decreased results. Patients taking a Biotin dose of up to 5 mg/day should refrain from taking Biotin for 24 hours before sample collection. Providers may contact their local laboratory for further information. Performed By: #### H EPA2 #### [facility] [address] [place] [id number] HEPATITIS B CORE AB,IGM Canceled Normal [place] Comment on above: Order Comment: TEST HEPATITIS PANEL,ACUTE (HCFA) WAS CANCELLED, 06/04/2022 12:36 spoke with Eugene Reynolds rn to recollect. Result Comment: Resu lts from patients taking biotin supplements or receiving high-dose biotin therapy should be interpreted with caution due to possible interference with this test. Providers may contact their local laboratory for further information. Performed By: #### H EPA2 #### [facility] [address] [place] [id number] HEPATITIS C AB Canceled Normal [place] Comment on above: Order Comment: TEST HEPATITIS PANEL,ACUTE (HCFA) WAS CANCELLED, 06/04/2022 12:36 spoke with Eugene Reynolds rn to recollect. Result Comment: Resu lts from patients taking biotin supplements or receiving high-dose biotin therapy should be interpreted with caution due to possible interference with this test. Providers may contact their local laboratory for further information. Performed By: #### H EPA2 #### [facility] [address] [place] [address] Lab Specimen Source Normal [place] Comment on above: Order Comment: TEST HEPATITIS PANEL,ACUTE (HCFA) WAS CANCELLED, 06/04/2022 12:36 spoke with Eugene Reynolds rn to recollect. Performed By: #### H EPA2 #### [facility] [address] [place] [address] Order Comment: TEST HIV 1/2 ANTIGEN/ANTIBODY SCREEN WITH REFLEX TO CONFIRMATION WAS CANCELLED, 06/04/2022 12:35 spoke with Rodolfo Tinoco rn to recollect. Performed By: #### H IV #### [facility] [address] [place] [address] Performed By: #### S YPHR #### [facility] [address] [place] [address] HIV 1/2 ANTIGEN/ANTIBODY SCR EEN WITH REFLEX TO CONFIRMATIONon 06-04-2022 HIV 1/2 AG/AB SCREEN Canceled Normal [place] Comment on above: Order Comment: TEST HIV 1/2 ANTIGEN/ANTIBODY SCREEN WITH REFLEX TO CONFIRMATION WAS CANCELLED, 06/04/2022 12:35 spoke with Rdoolfo Tinoco rn to recollect. Result Comment: HIV Ag/Ab screen is performed using the [employer] HIV Ag/Ab Combo assay which detects the presence of HIV p24 antigen as well as antibodies to HIV-1 (Group M and O) and HIV-2. Performed By: #### H IV #### [facility] [address] [place] [id number] T-SPOT TBon 06-04-2022 T-SPOT.TB INTERP Canceled Normal [place] [facility] Comment on above: Order Comment: TEST T-SPOT TB WAS CANCELLED, 06/04/2022 15:35 QNS, PLEASE RESUBMIT.. Performed By: #### T SPOT #### [facility] [address] [place] [address] BUPRENORPHINE CONFIRM,URINEo n 06-03-2022 BUPRENORPHINE GLUC,U 147 ng/mL Normal [place] Comment on above: Result Comment: Cons istent with use of a buprenorphine-containing drug. Glucuronide concentrations are semi-quantitative. Performed By: #### B UPR #### [facility] [address] [place] [address] BUPRENORPHINE,U 2 ng/mL Normal [place] Comment on above: Result Comment: INTE RPRETIVE INFORMATION: Buprenorphine and Metabolites, Urine, Quantitative Methodology: Quantitative Liquid Chromatography-Tandem Mass Spectrometry Positive cutoff: Buprenorphine 2 ng/mL Norbuprenorphine 2 ng/mL Buprenorphine glucuronide 5 ng/mL Norbuprenorphine glucuronide 5 ng/mL Naloxone 100 ng/mL For medical purposes only; not valid for forensic use. The presence of metabolite(s) without parent drug is common and may indicate use of parent drug during the prior week. Naloxone is included to detect addition of a naloxone-containing drug directly into the urine. The absence of expected drug(s) and/or drug metabolite(s) may indicate non-compliance, inappropriate timing of specimen collection relative to drug administration, poor drug absorption, diluted/adulterated urine, or limitations of testing. The concentration value must be greater than or equal to the cutoff to be reported as positive. Interpretive questions should be directed to the laboratory. This test was developed and its performance characteristics determined by [employer]. It has not been cleared or approved by the [place] Food and Drug Administration. This test was performed in a CLIA certified laboratory and is intended for clinical purposes. Performed By: #### B UPR #### [facility] [address] [place] [address] NALOXONE,U <100 Normal [place] Comment on above: Result Comment: Perf ormed By: [facility] [address] [place] [address] [employer]: Jordy Burns MD, PhD Performed By: #### B UPRC #### [facility] [address] [place] [address] NORBUPRENORPHINE GLUC,U 173 ng/mL Normal [place] Comment on above: Performed By: #### B UPR #### [facility] [address] [place] [address] NORBUPRENORPHINE,U 17 ng/mL Normal [place] [facility] Comment on above: Performed By: #### B UPRC #### [facility] [address] [place] [address] GABAPENTIN,URINEon 3 GABAPENTIN,URINE >500.0 Normal [place] [facility] Comment on above: Result Comment: INTE RPRETIVE INFORMATION: Gabapentin, Urine Positive cutoff: 5.0 ug/mL For medical purposes only; not valid for forensic use. The absence of expected drug(s) and/or drug metabolite(s) may indicate non-compliance, inappropriate timing of specimen collection relative to drug administration, poor drug absorption, diluted/adulterated urine, or limitations of testing. The concentration value must be greater than or equal to the cutoff to be reported as a quantitative result. Interpretive questions should be directed to the laboratory. This test was developed and its performance characteristics determined by [employer]. It has not been cleared or approved by the [place] Food and Drug Administration. This test was performed in a CLIA certified laboratory and is intended for clinical purposes. Performed By: [facility] [address] [place] [address] [employer]: Jordy Burns MD, PhD Performed By: #### G ABAU #### [place] [address] BUPRENORPHINE SCREEN TO CONF IRM,URINEon 06-01-2022 BUPRENORPHINE SCREEN,INTERP. See Note Normal [facility] Comment on above: Result Comment: INTE RPRETIVE INFORMATION: The absence of expected drug(s) and/or drug metabolite(s) may indicate non-compliance, inappropriate timing of specimen collection relative to drug administration, poor drug absorption, diluted/adulterated urine, or limitations of testing. The concentration at which the screening test can detect a drug or metabolite varies. Specimens for which drugs or drug classes are detected by the screen are reflexed to a second, more specific technology (GC/MS and/or LC-MS/MS). The concentration value must be greater than or equal to the cutoff to be reported as positive. Interpretive questions should be directed to the laboratory. For medical purposes only; not valid for forensic use. Performed By: [facility] [address] [place] [address] [employer]inner: Jordy Burns MD, PhD Performed By: #### B UPRS #### [address] [address] [address] [address] BUPRENORPHINE SCREEN,URINE Positive Normal Cutoff 5 [facility] Comment on above: Result Comment: If t he screen is positive, then confirmation testing by mass spectrometry will be added. Additional charges will apply. Performed By: #### B UPRS #### [facility] [address] [place] [address] [facility] [address] [place] [address] DRUG SCREEN,URINEon 05-31-19 23 AMPHETAMINE SCREEN,U Negative Normal NEGATIVE [place]/[facility] Comment on above: Result Comment: CUTO FF LEVEL: 500 NG/ML Cross-reactivity has been reported with high concentrations of the following drugs: buproprion, chloroquine, chlorpromazine, ephedrine, mephentermine, fenfluramine, phentermine, phenylpropanolamine, pseudoephedrine, and propranolol. Performed By: #### D RUG3 #### [place] [address] BARBITURATES SCREEN,U Negative Normal NEGATIVE [place]/[facility] Comment on above: Result Comment: CUTO FF LEVEL: 200 NG/ML Performed By: #### D RUG3 #### [place] [address] BENZODIAZEPINES SCREEN,U Negative Normal NEGATIVE [place] Comment on above: Result Comment: CUTO FF LEVEL: 200 NG/ML Performed By: #### D RUG3 #### [place] [address] CANNABINOIDS SCREEN,U Positive Abnormal NEGATIVE [place]/[facility] Comment on above: Result Comment: CUTO FF LEVEL: 50 NG/ML Performed By: #### D RUG3 #### [place] [address] COCAINE METABOLITE SCREEN,U Positive Abnormal NEGATIVE [place] Comment on above: Result Comment: CUTO FF LEVEL: 150 NG/ML Performed By: #### D RUG3 #### [place] [address] DRUG SCREEN COMMENT SEE BELOW Normal [place] Comment on above: Result Comment: Drug screen results are presumptive and should not be used to assess compliance with prescribed medication. Contact the performing [facility] laboratory to add-on definitive confirmatory testing if clinically indicated. . Toxicology screening results are reported qualitatively. The concentration must be greater than or equal to the cutoff to be reported as positive. The concentration at which the screening test can detect an individual drug or metabolite varies. The absence of expected drug(s) and/or drug metabolite(s) may indicate non-compliance, inappropriate timing of specimen collection relative to drug administration, poor drug absorption, diluted/adulterated urine, or limitations of testing. For medical purposes only; not valid for forensic use. . Interpretive questions should be directed to the laboratory medical directors. Performed By: #### D RUG3 #### [place] [address] FENTANYL SCREEN,URINE Positive Abnormal NEGATIVE [place] inson/Po [facility] Comment on above: Result Comment: CUTO FF LEVEL: 5 NG/ML Performed By: #### D RUG3 #### [place] [address] METHADONE SCREEN,U Negative Normal NEGATIVE [place] on/Po [facility] Comment on above: Result Comment: CUTO FF LEVEL: 150 NG/ML The metabolite S-zargh-srqnvmkwzcalse (LAAM) is not detected by this method in concentrations that would be found in the urine of patients on LAAM therapy. Performed By: #### D RUG3 #### [place] [address] OPIATES SCREEN,U Negative Normal NEGATIVE [place] /Po [facility] Comment on above: Result Comment: CUTO FF LEVEL: 300 NG/ML The opiate screen does not detect fentanyl, meperidine, or tramadol. Oxycodone is not consistently detected (refer to Oxycodone Screen, Urine result). Performed By: #### D RUG3 #### [place] [address] OXYCODONE SCREEN,U Negative Normal NEGATIVE [place] on/Po [facility] Comment on above: Result Comment: CUTO FF LEVEL: 100 NG/ML This test will accurately detect both oxycodone and oxymorphone. Performed By: #### D RUG3 #### [place] [address] PCP SCREEN,U Negative Normal NEGATIVE [place]/Po [facility] Comment on above: Result Comment: CUTO FF LEVEL: 25 NG/ML Cross-reactivity has been reported with dextromethorphan. Performed By: #### D RUG3 #### [facility] [address] [place] [address] BETA HCG, QUANTITATIVE FOR Reginald Driscoll 09-20-2021 HCG.beta subunit Qn 49.6 m[IU]/mL High <5.0 [facility] Comment on above: Order Comment: Speci men Type: BLOOD SPECIMEN Ordering Facility: [facility] Address: [address] [place] [address] [place] [address] Result Comment: IRIS TITATIVE HCG NORMAL RANGES Weeks of Gestation (Weeks Since LMP) 3 Weeks (5.8-71.2 mIU/mL) 4 Weeks (9.5-750 mIU/mL) 5 Weeks (217-7138 mIU/mL) 6 Weeks (158-64918 mIU/mL) 7 Weeks (3697-903488 mIU/mL) 8 Weeks (58795-374945 mIU/mL) 9 Weeks (41477-208358 mIU/mL) 10 Weeks (90695-448235 mIU/mL) 12 Weeks (41825-537453 mIU/mL) Referenced to 4th IS of [facility] Performed By: #### H CGED #### [facility] CLIA [id number] [place] [address] [facility] ED NOTEon 09-20-2021 ED NOTE HNO ID: [id number] Author: Antoni Ling RN Service: ? Author Type: Registered Nurse Type: ED Notes Filed: 09/20/2021 9:15 AM Note Text: Discharge instructions reviewed with pt. Pt verbalizes understanding of instructions, medications, follow up care and reasons to return to the emergency department. Pt verbalizes understanding by teach back method and all questions/ concerns answered to the best of my ability. Pt discharged in stable condition. Normal [facility] ED NOTE HNO ID: [id number] Author: Maritza Bassett, Medic Service: ? Author Type: Clin Nurse Spec and Electromechanical Inspector Type: ED Notes Filed: 09/20/2021 7:54 AM Note Text: Patient here to get her blood levels checked. Pt around 6 weeks . Doesn't have dr sangeetha Aguilar [facility] ED PROV NOTEon 09-20-2021 ED PROV NOTE HNO ID: [id number] Author: Judie Roberts MD Service: Emergency Medicine Author Type: Physician Type: ED Provider Notes Filed: 09/20/2021 9:38 AM Note Text: ED Provider Note Patient Name: Crystal Machuca : 1990 SERVICE DATE: 09/20/21 History Patient presents with: Here to get blood levels checked HPI Pt is 31 year old female presenting to the emergency department requesting her labs to be checked. She was seen at [facility] on 09/13 for lower abdominal cramping and vaginal bleeding. At that time serum quant hCG was 986. Ultrasound showed no intrauterine at that time, findings were attributed to normal early . Patient was told to follow-up for recheck blood work in a few days. She comes into the emergency department this morning because she has not attempted to set up care with any ROLL TABLE OPERATOR physician. Denies any vaginal bleeding or abdominal cramping since her initial visit. No complaints currently. PAST MEDICAL HISTORY Diagnosis Date - Anorexia nervosa - Asthma - Bipolar disorder (HCC) - Borderline personality disorder (HCC) - Generalized anxiety disorder - Headache - High risk sexual behavior pt stopped B/C and she is on high risk antipsychotic medication - HRP (high risk ) substance abuse/bipolardisorder/pe rsonality disorder - Menometrorrhagia - Nausea and vomiting - Opioid dependence (HCC) on suboxone psych/addiction dr delarosa - Patient noncompliance - Polysubstance dependence (HCC) heroin, thc, opiates , cocaine - Subjective visual disturbance - Tobacco dependence syndrome PAST SURGICAL HISTORY Procedure Laterality Date - ADENOIDECTOMY HX 02/26/2013 - TONSILLECTOMY HX 02/26/2013 FAMILY HISTORY Problem Relation Age of Onset - Cancer Maternal Grandfather Colon, lung, brain, throat cancer - Diabetes Paternal Grandfather - Hypertension Paternal Grandfather - Hyperlipidemia Paternal Grandfather - other (heart disease [Other]) Maternal Grandfather - Breast Cancer Paternal Grandmother Social History Tobacco Use - Smoking status: Current Every Day Smoker Packs/day: 1.00 Types: Cigarettes - Smokeless tobacco: Never Used Vaping Use - Vaping Use: current everyday user Substance and Sexual Activity - Alcohol use: No - Drug use: Yes Types: Marijuana, Narcotics Comment: mjn during ; but not recently; Hx opiod use - attends AA - Sexual activity: Yes Partners: Male ALLERGIES Allergen Reactions - Augmentin [Amoxicil* Hives - [place] [Hydrocodone-* Vomiting - Penicillin Hives - Tramadol Vomiting Review of Systems Constitutional: Negative. HENT: Negative. Eyes: Negative. Respiratory: Negative. Cardiovascular: Negative. Gastrointestinal: Negative. Genitourinary: See hpi Musculoskeletal: Negative. Skin: Negative. Neurological: Negative. Psychiatric/Behavioral: Negative. Physical Exam Vitals [09/20/21 0751] BP Pulse Temp Temp src Resp SpO2 Weight Height 130/77 (!) 107 37 ?C (98.6 ?F) Oral 20 98 % 90.7 kg (200 lb) 1.651 m (5' 5") Physical Exam Vitals and nursing note reviewed. Constitutional: Appearance: She is well-developed. HENT: Head: Normocephalic and atraumatic. Eyes: Pupils: Pupils are equal, round, and reactive to light. Cardiovascular: Rate and Rhythm: Normal rate and regular rhythm. Pulses: Normal pulses. Pulmonary: Effort: No respiratory distress. Breath sounds: No wheezing or rales. Abdominal: General: There is no distension. Palpations: Abdomen is soft. Tenderness: There is no abdominal tenderness. Musculoskeletal: General: No tenderness. Cervical back: Normal range of motion and neck supple. Skin: General: Skin is warm and dry. Neurological: Mental Status: She is alert and oriented to person, place, and time. Cranial Nerves: No cranial nerve deficit. Sensory: No sensory deficit. Motor: No abnormal muscle tone. Psychiatric: Behavior: Behavior normal. Diagnostic Testing ED Labs Ordered and Reviewed - No data to display Procedures ED Course / Clinical Impression Clinical Impressions as of 09/20/21 0936 , unspecified gestational age Patient noncompliance MDM / Disposition / Plan MDM 31 year old G4, P2 female presenting to the emergency department with no complaints, requesting a quantitative hCG to be drawn Her exam is entirely benign and again she has no complaints, quantitative hCG was drawn However prior to this resulting, patient stated she needed to leave the emergency department to give her significant other ride to work We discussed strict return to ED precautions that she should return immediately for severe pain or bleeding Otherwise we were able to make her an ROLL TABLE OPERATOR referral and strongly stressed the importance of following up Patient discharged from the ED at her request SIGNATURE: MD Judie Gilliland MD 09/20/21 09 (more content not included)... Normal [facility] HCG,BETA-QUANTITATIVEon 07 HCG,BETA-QUANTITATIVE Canceled Normal [facility] Comment on above: Order Comment: TEST HCG,BETA-QUANTITATIVE WAS CANCELLED, 09/19/2021 21:01 TEST CANCELLED PER NURSE CHEMA. Result Comment: Low- level positive HCG results can be seen in early , in javier- or post-menopausal females due to normal pituitary HCG production, or with analytic interference. Repeat testing in 48-72 hours can aid in assessing for as results should double in this time period. FSH measurement is recommended in javier- or post-menopausal females as concurrent elevation of FSH can support pituitary production as the source of the HCG elevation. . Total HCG measurement is performed using the Sarah Eduardo Access Immunoassay which detects intact HCG and free beta HCG subunit. This test is not indicated for use as a tumor marker. HCG testing is performed using a different test methodology at [facility] than other [facility]. Direct result comparison should only be made within the same method. Performed By: #### H CGQU #### [address] [place] [address] HCG,URINEon 09-19-2021 Beta HCG ( test) Ql (U) Positive Abnormal Negative [facility] Comment on above: Performed By: #### H CGU #### [address] [place] [address] Triage - EDon 09-19-2021 Triage - ED Quick Triage: Are You yes Have You Given In The Last 6 Weeksno Are You Currently Breastfeedingno The patient and/or guardian verbally acknowledges placement for services into the following (when Urgent Care Service hours are operating):emergency department Chart Review: PRIMARY ASSESSMENT CRYSTAL MACHUCA's primary assessment is Within Defined Limits. The airway is open and patent. Breathing spontaneous and unlabored with clear breath sounds bilaterally. Circulation is normal with good peripheral pulses. Skin is warm and dry and color is normal for race. ARRIVAL INFORMATION Means of Arrival: Ambulatory Mode of Arrival: private vehicle Arrival From: home Accompanied By: self Language: Reading Language Preferred: Spanish Intern Brand Requested: no modeling and simulation analyst was requested CHIEF COMPLAINT CRYSTAL MACHUCA is a Female patient with a chief complaint of other (pt here for bloodwork to get her hcg count to see if it is going up or trending down. pt has been bleeding for 1 week. pt is 6 weeks . last hcg 975 , 09/14). Triage Date/Time: 19-Sep-2021 14:06 ROSEANN: 3V Pain Rating (0-10): 3 = Mild Pain location: cramping Vital Signs: Temperature: 97.7F ( 36.5C) taken temporal Blood Pressure: 116/80 Mean: Heart Rate: 61 Respiratory Rate: 15 Pulse Oximetry: 98% on room air, no respiratory support. Height: 5 feet 5.00 inches. 165.1 CM Weight: 200.4 pounds. Calculated 90.9 kg. Calculated BMI (kg/m2): 33.347 Calculated BSA (m2) 2.04 Kareen Coma Scale: Best Eye Response: (E4) spontaneous Best Motor Response: (M6) obeys commands Best Verbal Response: (V5) oriented Kareen Score: 15 Patient immunocompromised related to: N/A Allergies: yes Last menstrual period: 27-Jul-2021 ROLL TABLE OPERATOR History: Patient has homicidal thoughts: no Last Known Well: known Time Last Known Well Date/Time: 19-Sep-2021 14:10 Risk Screens Suicide Risk Screen In the Past Month: Have you wished you were or wished you could go to sleep and not wake up no In the Past Month: Have you had any actual thoughts of killing yourself no In Your Lifetime: Have you ever done anything, started to do anything, or prepared to do anything to end your life no Interventions: Rodriguez Fall Interventions: LOW INTERVENTIONS: *patient oriented to surroundings and call system, * patient/family falls education completed and documented, *patients fall status communicated during bedside handoff, *whiteboard updated, *mode of toileting discussed with patient, *bed in low position with brakes locked, *call light in reach, * non-skid footwear PAST MEDICAL HISTORY Immunization History: Last Known Tetanus Immunization: Less than 5 years TRAVEL HISTORY Travel History Coronavirus Screening: no exposure or symptoms Travel Exposure History: NO travel to International locations in the past 30 days PAIN Pain Scale Used: ANDRY Pain Rating (0-10): 3 = Mild Past Medical History: Past Medical History Reviewedyes Electronic Signatures: Aaron Go (RN) (Signed 19-Sep-2021 14:10) Entered: Risk Screens, Pain, Arrival, ABCD, Immunizations, Travel History, Chart Review, Scores, Past Medical History Authored: Quick Triage, Risk Screens, Pain, Arrival, ABCD, Immunizations, Travel History, Chart Review, Scores, Past Medical History Last Updated: 19-Sep-2021 14:10 by Aaron Go (RN) Normal [facility] Culture, Urineon 09-11-2020 Culture, Urine ORDER#: [id number] ORDERED BY: DEANGELO VIDES SOURCE: Urine Clean Catch COLLECTED: 09/11/20 20:18 ANTIBIOTICS AT HETAL.: RECEIVED : 09/11/20 20:18 Culture, Urine FINAL 09/13/20 09:54 No growth [address] [facility] Comment on above: Performed By: #### R UBEL #### [facility] [address] [facility] [place] [address] Microscopic UrinalysisOrdere d By: Deangelo Vides on 09-11-2020 Bacteria, UA FEW Abnormal Negative /HPF [facility]: Cellular Cast, UA 1-3 RBC Abnormal None Seen /LPF myhub Phone: Epithelial Cells, UA 20-50 [facility] [employer] Phone: RBC, UA 10-20 Abnormal [facility]: WBC, UA >100 High [facility]: No Panel InformationOrdered By: Deangelo Vides on 09-11-2020 Interpretation and review of laboratory results Abnormal [facility]: myhub Phone: POCT Glucoseon 09-11-2020 Glucose [Mass/Vol] 94 mg/dL Normal 60-115 [facility] Comment on above: Performed By: #### H BSG #### [facility] [address] [place] [address] POC Performed on ACCU-CHEK [facility] Comment on above: Performed By: #### H BSG #### [facility] [address] [place] [address] POCT GlucoseOrdered By: Unkn own Result on 09-11-2020 Glucose [Mass/Vol] 94 mg/dL 60 - 115 mg/dl [facility] [employer] Phone: Performed on ACCU-CHEK [facility] [employer] Phone: [facility] [employer] Phone: Rejection Notificationon Reason see below [facility] Comment on above: Result Comment: Unab le to perform testing; specimen leaked in transit. To perform testing the specimen will need to be recollected. Leaked Performed By: #### H BSG #### [facility] [address] [place] [address] Rejected Test uar/udrgs [facility] Comment on above: Performed By: #### H BSG #### [facility] [address] [place] [address] SPECIMEN REJECTIONOrdered By : Deangelo Vides on 09-11-2020 Reason for Rejection see below [facility] Phone: Comment on above: Unable to perform te sting; specimen leaked in transit. To perform testing the specimen will need to be recollected. Leaked Rejected Test uar/udrgs [facility] [employer] Phone: [facility] [employer] Phone: UR Drugs of Abuse Panelon Drug Screen Comment see below [facility] Comment on above: Result Comment: This method is a screening test to detect only these drug classes as part of a medical workup. Confirmatory testing by another method should be ordered if clinically indicated. Performed By: #### H BSG #### [facility] [address] [place] [address] UR Amphetamines Screen Positive Abnormal Negative < [facility] Comment on above: Result Comment: High concentrations of ephedrine/pseudoephedrine or phenylpropanolamine may cause false positive results for amphetamine. Therefore, confirmatory testing for amphetamine should be considered if clinically indicated. Performed By: #### H BSG #### [facility] [address] [place] [address] UR Barbiturates Screen Negative Normal Negative < [facility] Comment on above: Performed By: #### H BSG #### [facility] [address] [place] [address] UR Benzo Screen Negative Normal Negative < [facility] Comment on above: Performed By: #### H BSG #### [facility] [address] [place] [address] UR Cannabinoids Screen Positive Abnormal Negative < [facility] Comment on above: Performed By: #### H BSG #### [facility] [address] [place] [address] UR Cocaine Screen Positive Abnormal Negative < [facility] Comment on above: Performed By: #### H BSG #### [facility] [address] [place] [address] UR Methadone Screen Negative Normal Negative < [facility] Comment on above: Performed By: #### H BSG #### [facility] [address] [place] [address] UR Opiates Screen Positive Abnormal Negative < [facility] Comment on above: Performed By: #### H BSG #### [facility] [address] [place] [address] UR Oxycodone Screen Negative Normal Negative < [facility] Comment on above: Performed By: #### H BSG #### [facility] [address] [place] [address] UR PCP Screen Negative Normal Negative < [facility] Comment on above: Performed By: #### H BSG #### [facility] [address] [place] [address] UR Propoxyphene Screen Negative Normal Negative < [facility] Comment on above: Performed By: #### H BSG #### [facility] [address] [place] [address] Urinalysis Reflex to Culture Ordered By: Deangelo Vides on 09-11-2020 Bilirubin Urine SMALL Abnormal Negative [facility] [employer] Phone: Blood, Urine MODERATE Abnormal Negative [facility] [employer] Phone: Clarity, UA TURBID Abnormal Clear [facility] [employer] Phone: Color, UA ORANGE Abnormal Straw/Yellow [facility] [employer] Phone: Glucose, Ur Negative Negative mg/dL [facility] [employer] Phone: Ketones Ql (U) 15 mg/dL Abnormal Negative [facility] [employer] Phone: Leukocyte esterase Test strip Ql (U) SMALL Abnormal Negative [facility] [employer] Phone: Nitrite, Urine Positive Abnormal Negative [facility] [employer] Phone: pH, UA 5.0 [facility] [employer] Phone: Protein (U) [Mass/Vol] 100 mg/dL Abnormal Negative [facility] [employer] Work Phone: Specific Entiat, UA 1.024 [facility] [employer] Work Phone: Urine Reflex to Culture Yes M [facility] [employer] Work Phone: Urobilinogen, Urine 1.0 <2.0 E.U./dL [facility] [employer] Work Phone: Urinalysis, reflex to cultur marc 09-11-2020 Urine Reflexed to Culture Yes Normal [facility] Comment on above: Performed By: #### R UBEL #### [facility] [address] [place] [address] Bilirubin Ql (U) SMALL Abnormal Negative [facility] Comment on above: Performed By: #### R UBEL #### [facility] [address] [place] [address] Clarity (U) TURBID Abnormal Clear [facility] Comment on above: Performed By: #### R UBEL #### [facility] [address] [place] [address] Color (U) ORANGE Abnormal Straw/Stearns [facility] Comment on above: Performed By: #### R UBEL #### [facility] [address] [place] [address] Glucose Ql (U) Negative Normal Negative [facility] Comment on above: Performed By: #### R UBEL #### [facility] [address] [place] [address] Hemoglobin Ql (U) MODERATE Abnormal Negative [facility] Comment on above: Performed By: #### R UBEL #### [facility] [address] [place] [address] Ketones Ql (U) 15 mg/dL Abnormal Negative [facility] Comment on above: Performed By: #### R UBEL #### [facility] [address] [place] [address] Leukocyte esterase Test strip Ql (U) SMALL Abnormal Negative [facility] Comment on above: Performed By: #### R UBEL #### [facility] [address] [place] [address] Nitrite Ql (U) Positive Abnormal Negative [facility] Comment on above: Performed By: #### R UBEL #### [facility] [address] [place] [address] pH (U) 5.0 [pH] Normal 5.0-9.0 [facility] Comment on above: Performed By: #### R UBEL #### [facility] [address] [place] [address] Protein Ql (U) 100 mg/dL Abnormal Negative [facility] Comment on above: Performed By: #### R UBEL #### [facility] [address] [place] [address] Specific gravity (U) [Rel density] 1.024 Normal 1.005-1.03 [facility] Comment on above: Performed By: #### R UBEL #### [facility] [address] [place] [address] Urobilinogen Qn (U) 1.0 {Sanjeev'U}/dL Normal < 2.0 [facility] Comment on above: Performed By: #### R UBEL #### [facility] [address] [place] [address] Urine Drug ScreenOrdered By: Deangelo Vides on 09-11-2020 Amphetamine Screen, Urine Positive Abnormal Negative <1000 ng/mL myhub Phone: Comment on above: High concentrations of ephedrine/pseudoephedrine or phenylpropanolamine may cause false positive results for amphetamine. Therefore, confirmatory testing for amphetamine should be considered if clinically indicated. Barbiturate Screen, Ur Negative Negat junaid < 200 ng/mL [employer] Phone: Benzodiazepine Screen, Urine Negative Negative < 200 ng/mL [employer] Phone: Cannabinoid Scrn, Ur Positive Abnormal Negativ e < 50 ng/mL [employer] Phone: Cocaine Metabolite Screen, Urine Positive Abnormal Negative < 300 ng/mL [employer] Phone: Drug Screen Comment: see below [employer] Phone: Comment on above: This method is a scr eening test to detect only these drug classes as part of a medical workup. Confirmatory testing by another method should be ordered if clinically indicated. Interpretation and review of laboratory results Abnormal [employer] Phone: Methadone Screen, Urine Negative Nega tive <300 ng/mL [employer] Phone: Opiate Scrn, Ur Positive Abnormal Negative < 300 ng/mL [employer] Phone: Oxycodone Urine Negative Negative <100 ng/mL [employer] Phone: PCP Screen, Urine Negative Negative < 25 ng/mL [employer] Phone: Propoxyphene Scrn, Ur Negative Negati ve <300 ng/mL myhub Phone: myhub Phone: Urine Microscopicon 09-12-19 21 Urine Cellular Casts 1-3 RBC Abnormal [facility] Comment on above: Performed By: #### R UBEL #### [facility] [address] [place] [address] Urine RBC 10-20 Abnormal 0-2 [facility] Comment on above: Performed By: #### R UBEL #### [facility] [address] [place] [address] Urine Bacteria FEW Abnormal Negative [facility] Comment on above: Performed By: #### R UBEL #### [facility] [address] [place] [address] Urine Epithelial Cells Auto 20-50 Normal 0-5 [facility] Comment on above: Performed By: #### R UBEL #### [facility] [address] [place] [address] Urine WBC Auto >100 Critically high 0-5 [facility] Comment on above: Performed By: #### R UBEL #### [facility] [address] [place] [address] C.trachomatis N.gonorrhoeae DNAon 09-07-2020 C. trachomatis DNA NAKUL+probe Ql (Unsp spec) Negative Normal Negative [facility] N. gonorrhoeae DNA NAKUL+probe Ql (Unsp spec) Negative Normal Negative [facility] CBC With Platelet and Differ entialon 09-03-2020 Basophils (Bld) [#/Vol] 0.0 10*3/uL Normal 0.0-0.2 [facility] Comment on above: Order Comment: Phyllis ca has been rescheduled by JONEA at 09/03/2020 06:16 Reason: Nosuitable vein for venipuncture Performed By: #### H BSG #### [facility] [address] [place] [address] Basophils/100 WBC (Bld) 0.5 % Normal [facility] Comment on above: Order Comment: Phyllis ca has been rescheduled by JONEA at 09/03/2020 06:16 Reason: Nosuitable vein for venipuncture Performed By: #### H BSG #### [facility] [address] [place] [address] Eosinophils (Bld) [#/Vol] 0.2 10*3/uL Normal 0.0-0.7 [facility] Comment on above: Order Comment: Phyllis ca has been rescheduled by JONEA at 09/03/2020 06:16 Reason: Nosuitable vein for venipuncture Performed By: #### H BSG #### [facility] [address] [place] [address] Eosinophils/100 WBC (Bld) 2.4 % Normal [facility] Comment on above: Order Comment: Phyllis ca has been rescheduled by JONEA at 09/03/2020 06:16 Reason: Nosuitable vein for venipuncture Performed By: #### H BSG #### [facility] [address] [place] [address] Erythrocyte distribution width (RBC) [Ratio] 19.7 % Critically high 11.5-14.5 [facility] Comment on above: Order Comment: Phyllis ca has been rescheduled by JONEA at 09/03/2020 06:16 Reason: Nosuitable vein for venipuncture Performed By: #### H BSG #### [facility] [address] [place] [address] Hematocrit (Bld) [Volume fraction] 32.4 % Low 37.0-47.0 [facility] Comment on above: Order Comment: Phyllis ca has been rescheduled by JONEA at 09/03/2020 06:16 Reason: Nosuitable vein for venipuncture Performed By: #### H BSG #### [facility] [address] [place] [address] Hemoglobin (Bld) [Mass/Vol] 10.6 g/dL Low 12.0-16.0 [facility] Comment on above: Order Comment: Phyllis ca has been rescheduled by JONEA at 09/03/2020 06:16 Reason: Nosuitable vein for venipuncture Performed By: #### H BSG #### [facility] [address] [place] [address] Lymphocytes (Bld) [#/Vol] 3.5 10*3/uL Normal 1.0-4.8 [facility] Comment on above: Order Comment: Phyllis ca has been rescheduled by JONEA at 09/03/2020 06:16 Reason: Nosuitable vein for venipuncture Performed By: #### H BSG #### [facility] [address] [place] [address] Lymphocytes/100 WBC (Bld) 44.0 % Normal [facility] Comment on above: Order Comment: Phyllis ca has been rescheduled by JONEA at 09/03/2020 06:16 Reason: Nosuitable vein for venipuncture Performed By: #### H BSG #### [facility] [address] [place] [address] MCH (RBC) [Entitic mass] 26.3 pg Low 27.0-31.3 [facility] Comment on above: Order Comment: Phyllis ca has been rescheduled by JONEA at 09/03/2020 06:16 Reason: Nosuitable vein for venipuncture Performed By: #### H BSG #### [facility] [address] [place] [address] MCHC 32.8 % Low 33.0-37.0 [facility] Comment on above: Order Comment: Phyllis ca has been rescheduled by JONEA at 09/03/2020 06:16 Reason: Nosuitable vein for venipuncture Performed By: #### H BSG #### [facility] [address] [place] [address] MCV (RBC) [Entitic vol] 80.4 fL Low 82.0-100.0 [facility] Comment on above: Order Comment: Phyllis ca has been rescheduled by JOKRISS at 09/03/2020 06:16 Reason: Nosuitable vein for venipuncture Performed By: #### H BSG #### [facility] [address] [place] [address] Monocytes (Bld) [#/Vol] 0.6 10*3/uL Normal 0.2-0.8 [facility] Comment on above: Order Comment: Phyllis ca has been rescheduled by JOKRISS at 09/03/2020 06:16 Reason: Nosuitable vein for venipuncture Performed By: #### H BSG #### [facility] [address] [place] [address] Monocytes/100 WBC (Bld) 8.0 % Normal [facility] Comment on above: Order Comment: Phyllis ca has been rescheduled by JOKRISS at 09/03/2020 06:16 Reason: Nosuitable vein for venipuncture Performed By: #### H BSG #### [facility] [address] [place] [address] Neutrophils (Bld) [#/Vol] 3.6 10*3/uL Normal 1.4-6.5 [facility] Comment on above: Order Comment: Phyllis ca has been rescheduled by JOKRISS at 09/03/2020 06:16 Reason: Nosuitable vein for venipuncture Performed By: #### H BSG #### [facility] [address] [place] [address] Neutrophils/100 WBC (Bld) 45.1 % Normal [facility] Comment on above: Order Comment: Phyllis ca has been rescheduled by JONEA at 09/03/2020 06:16 Reason: Nosuitable vein for venipuncture Performed By: #### H BSG #### [facility] [address] [place] [address] Platelets (Bld) [#/Vol] 237 10*3/uL Normal 130-400 [facility] Comment on above: Order Comment: Phyllis ca has been rescheduled by JOKRISS at 09/03/2020 06:16 Reason: Nosuitable vein for venipuncture Performed By: #### H BSG #### [facility] [address] [place] [address] RBC (Bld) [#/Vol] 4.03 10*6/uL Low 4.20-5.40 [facility] Comment on above: Order Comment: Phyllis ca has been rescheduled by JONEA at 09/03/2020 06:16 Reason: Nosuitable vein for venipuncture Performed By: #### H BSG #### [facility] [address] [place] [address] WBC (Bld) [#/Vol] 8.1 10*3/uL Normal 4.8-10.8 [facility] Comment on above: Order Comment: Phyllis ca has been rescheduled by JOKRISS at 09/03/2020 06:16 Reason: Nosuitable vein for venipuncture Performed By: #### H BSG #### [facility] [address] [place] [address] CBC auto differentialOrdered By: Ninoska Aguilar on 09-03-2020 Basophils (Bld) [#/Vol] 0.0 10*3/uL 0.0 - 0.2 K/uL [facility] [employer] Work Phone: Basophils/100 WBC (Bld) 0.5 % M [facility] [employer] Work Phone: Eosinophils (Bld) [#/Vol] 0.2 10*3/uL 0.0 - 0.7 K/uL [employer] Phone: Eosinophils/100 WBC (Bld) 2.4 % [employer] Phone: Hematocrit (Bld) [Volume fraction] 32.4 % Low 37.0 - 47.0 % [employer] Phone: Hemoglobin.gastrointest inal spec 1 Ql (Stl) 10.6 g/dL Low 12.0 - 16.0 g/dL [employer] Phone: Interpretation and review of laboratory results Abnormal [employer] Phone: Lymphocytes (Bld) [#/Vol] 3.5 10*3/uL 1.0 - 4.8 K/uL [employer] Phone: Lymphocytes/100 WBC (Bld) 44.0 % [employer] Phone: MCH (RBC) [Entitic mass] 26.3 pg Low 27.0 - 31.3 pg [employer] Phone: MCHC (RBC) [Mass/Vol] 32.8 % Low 33.0 - 37.0 % [employer] Phone: MCV (RBC) [Entitic vol] 80.4 fL Low 82.0 - 100.0 fL [employer] Phone: Monocytes (Bld) [#/Vol] 0.6 10*3/uL 0.2 - 0.8 K/uL [employer] Phone: Monocytes/100 WBC (Bld) 8.0 % M [employer] Phone: Neutrophils Absolute 3.6 K/uL 1.4 - 6 .5 K/uL [employer] Phone: Neutrophils/100 WBC (Bld) 45.1 % [employer] Phone: Platelet distribution width (Bld) [Ratio] 19.7 % High 11.5 - 14.5 % [employer] Phone: Platelets (Bld) [#/Vol] 237 10*3/uL 130 - 400 K/uL [employer] Phone: RBC (Bld) [#/Vol] 4.03 10*6/uL Low [employer] Phone: WBC (Bld) [#/Vol] 8.1 10*3/uL 4.8 - 10.8 K/uL [employer] Phone: Collection has been rescheduled by JEFFRY at 09/03/2020 06:16 Reason: No suitable vein for venipuncture [employer]hub Phone: myhub Phone: CT ABDOMEN PELVIS W IV CONTR AST Additional Contrast? NoneOrdered By: Ally Villeda on 09-03-2020 Impression: 1. Findi ngs are suggestive of colitis There is no evidence for obstruction. No evidence of appendicitis or diverticulitis seen. 2. No hydronephrosis is seen All CT scans at this facility use dose modulation, iterative reconstruction, and/or weight based dosing [employer]hub Phone: Comparison: March 20, 2017 History: Abdominal pain rectal bleeding Technique: CT ABDOMEN PELVIS W IV CONTRAST Helically Acquired CT of the abdomen and pelvis was performed during the intravenous infusion of 100 mL of Isovue-370. Axial delayed images were also performed. Reformatted sagittal and coronal images were also obtained. Findings: The visualized bases of the lungs contain no consolidating pneumonia, pleural effusion or pneumothorax. The liver, spleen, pancreas and adrenal glands are unremarkable. The gallbladder is contracted.. Bilaterally both kidneys show uptake and excretion of contrast with no evidence for hydronephrosis or renal calculi. The appendix is normal. No aneurysm or dissection is present. A small umbilical hernia seen that contains fat. Bowel wall thickening is seen in the ascending and transverse colon. The appendix is normal. No dilated loops of bowel or free air is seen. Small amount of free fluid is seen posteriorly in the pelvis. Within the pelvis the uterus Is unremarkable.. The contrast is seen layering in the bladder. The osseous structures contain no destructive lesions. myhub Phone: Reggie, Chpo Incoming Radiant Results From [employer] - 09/03/2020 8:33 AM EDT Comparison: March 20, 2017 History: Abdominal pain rectal bleeding Technique: CT ABDOMEN PELVIS W IV CONTRAST Helically Acquired CT of the abdomen and pelvis was performed during the intravenous infusion of 100 mL of Isovue-370. Axial delayed images were also performed. Reformatted sagittal and coronal images were also obtained. Findings: The visualized bases of the lungs contain no consolidating pneumonia, pleural effusion or pneumothorax. The liver, spleen, pancreas and adrenal glands are unremarkable. The gallbladder is contracted.. Bilaterally both kidneys show uptake and excretion of contrast with no evidence for hydronephrosis or renal calculi. The appendix is normal. No aneurysm or dissection is present. A small umbilical hernia seen that contains fat. Bowel wall thickening is seen in the ascending and transverse colon. The appendix is normal. No dilated loops of bowel or free air is seen. Small amount of free fluid is seen posteriorly in the pelvis. Within the pelvis the uterus Is unremarkable.. The contrast is seen layering in the bladder. The osseous structures contain no destructive lesions. IMPRESSION: Impression: 1. Findings are suggestive of colitis There is no evidence for obstruction. No evidence of appendicitis or diverticulitis seen. 2. No hydronephrosis is seen All CT scans at this facility use dose modulation, iterative reconstruction, and/or weight based dosing [employer]hub Phone: myhub Phone: Comprehensive Metabolic Pane l reflex Mgon 09-03-2020 Albumin [Mass/Vol] 3.5 g/dL Normal 3.5-4.6 [facility] Comment on above: Order Comment: Colle ction has been rescheduled by JEFFRY at 09/03/2020 06:16 Reason: Nosuitable vein for venipuncture Performed By: #### H BSG #### [facility] [address] [place] [address] ALP [Catalytic activity/Vol] 43 U/L Normal 40-130 [facility] Comment on above: Order Comment: Phyllis ca has been rescheduled by JONEA at 09/03/2020 06:16 Reason: Nosuitable vein for venipuncture Performed By: #### H BSG #### [facility] [address] [place] [address] ALT [Catalytic activity/Vol] U/L Normal 0-33 [facility] Comment on above: Order Comment: Phyllis ca has been rescheduled by JONEA at 09/03/2020 06:16 Reason: Nosuitable vein for venipuncture Performed By: #### H BSG #### [facility] [address] [place] [address] Anion gap [Moles/Vol] 12 mmol/L Normal 9-15 [facility] Comment on above: Order Comment: Phyllis ca has been rescheduled by JONEA at 09/03/2020 06:16 Reason: Nosuitable vein for venipuncture Performed By: #### H BSG #### [facility] [address] [place] [address] AST [Catalytic activity/Vol] 8 U/L Normal 0-35 [facility] Comment on above: Order Comment: Phyllis ca has been rescheduled by JONEA at 09/03/2020 06:16 Reason: Nosuitable vein for venipuncture Performed By: #### H BSG #### [facility] [address] [place] [address] Bilirubin [Mass/Vol] 0.4 mg/dL [facility]0.7 [facility] Comment on above: Order Comment: Phyllis ca has been rescheduled by JONEA at 09/03/2020 06:16 Reason: Nosuitable vein for venipuncture Performed By: #### H BSG #### [facility] [address] [place] [address] Calcium [Mass/Vol] 9.0 mg/dL Normal 8.5-9.9 [facility] Comment on above: Order Comment: Phyllis ca has been rescheduled by JONEA at 09/03/2020 06:16 Reason: Nosuitable vein for venipuncture Performed By: #### H BSG #### [facility] [address] [place] [address] Chloride [Moles/Vol] 111 mmol/L Critically high 95-107 [facility] Comment on above: Order Comment: Phyllis ca has been rescheduled by JONEA at 09/03/2020 06:16 Reason: Nosuitable vein for venipuncture Performed By: #### H BSG #### [facility] [address] [place] [address] CO2 [Moles/Vol] 18 mmol/L Low 20-31 [facility] Comment on above: Order Comment: Phyllis ca has been rescheduled by JONEA at 09/03/2020 06:16 Reason: Nosuitable vein for venipuncture Performed By: #### H BSG #### [facility] [address] [place] [address] Creatinine [Mass/Vol] 0.64 mg/dL Normal 0.50-0.90 [facility] Comment on above: Order Comment: Phyllsi ca has been rescheduled by JONEA at 09/03/2020 06:16 Reason: Nosuitable vein for venipuncture Performed By: #### H BSG #### [facility] [address] [place] [address] GFR >60.0 Normal >60 [facility] Comment on above: Order Comment: Phyllis ca has been rescheduled by JONEA at 09/03/2020 06:16 Reason: Nosuitable vein for venipuncture Result Comment: >60 mL/min/1.73m2 EGFR, calc. for ages 18 and older using the MDRD formula (not corrected for weight), is valid for stable renal function. Performed By: #### H BSG #### [facility] [address] [place] [address] GFR/1.73 sq M.predicted among blacks MDRD (S/P/Bld) [Vol rate/Area] mL/min/{1.73_m2} Normal >60 [facility] Comment on above: Order Comment: Phyllis ca has been rescheduled by JOKRISS at 09/03/2020 06:16 Reason: Nosuitable vein for venipuncture Result Comment: >60 mL/min/1.73m2 EGFR, calc. for ages 18 and older using the MDRD formula (not corrected for weight), is valid for stable renal function. Performed By: #### H BSG #### [facility] [address] [place] [address] Globulin (S) [Mass/Vol] 2.9 g/dL Normal 2.3-3.5 M [facility] Comment on above: Order Comment: Phyllis ca has been rescheduled by JEFFRY at 09/03/2020 06:16 Reason: Nosuitable vein for venipuncture Performed By: #### H BSG #### [facility] [address] [place] [address] Glucose [Mass/Vol] 85 mg/dL Normal 70-99 [facility] Comment on above: Order Comment: Phyllis ca has been rescheduled by JEFFRY at 09/03/2020 06:16 Reason: Nosuitable vein for venipuncture Performed By: #### H BSG #### [facility] [address] [place] [address] Magnesium [Moles/Vol] 3.7 mmol/L Normal 3.4-4.9 [facility] Comment on above: Order Comment: Phyllis ca has been rescheduled by JOKRISS at 09/03/2020 06:16 Reason: Nosuitable vein for venipuncture Performed By: #### H BSG #### [facility] [address] [place] [address] Protein [Mass/Vol] 6.4 g/dL Normal 6.3-8.0 [facility] Comment on above: Order Comment: Phyllis ca has been rescheduled by JEFFRY at 09/03/2020 06:16 Reason: Nosuitable vein for venipuncture Performed By: #### H BSG #### [facility] [address] [place] [address] Sodium [Moles/Vol] 141 mmol/L Normal 135-144 [facility] Comment on above: Order Comment: Phyllis ca has been rescheduled by JEFFRY at 09/03/2020 06:16 Reason: Nosuitable vein for venipuncture Performed By: #### H BSG #### [facility] [address] [place] [address] Urea nitrogen [Mass/Vol] 13 mg/dL Normal 6-20 [facility] Comment on above: Order Comment: Phyllis ca has been rescheduled by JEFFRY at 09/03/2020 06:16 Reason: Nosuitable vein for venipuncture Performed By: #### H BSG #### [facility] [address] [place] [address] Comprehensive Metabolic Pane l w/ Reflex to MGOrdered By: Ninoska Aguilar on 09-03-2020 Albumin [Mass/Vol] 3.5 g/dL 3.5 - 4.6 g/dL [facility]: ALP (Bld) [Catalytic activity/Vol] 43 U/L 40 - 130 U/L [facility] [employer] Phone: ALT [Catalytic activity/Vol] U/L 0 - 33 U/L [facility] [employer] Phone: Anion gap [Moles/Vol] 12 mmol/L [facility] [employer] Work Phone: AST [Catalytic activity/Vol] 8 U/L 0 - 35 U/L [facility] [employer] Phone: Bilirubin [Mass/Vol] 0.4 mg/dL 0.2 - 0 .7 mg/dL [facility]: Calcium [Mass/Vol] 9.0 mg/dL 8.5 - 9.9 mg/dL [facility]: Chloride [Moles/Vol] 111 mmol/L High [employer] Phone: CO2 [Moles/Vol] 18 mmol/L Low [employer]hub Phone: Creatinine [Mass/Vol] 0.64 mg/dL 0.50 - 0.90 mg/dL [employer] Phone: Free PSA/Total PSA [Mass fraction] 6.4 g/dL 6.3 - 8.0 g/dL [employer] Phone: GFR >60.0 >60 [employer] Phone: Comment on above: >60 mL/min/1.73m2 EG FR, calc. for ages 18 and older using the MDRD formula (not corrected for weight), is valid for stable renal function. GFR Non- >60.0 >60 myhub Phone: Comment on above: >60 mL/min/1.73m2 EG FR, calc. for ages 18 and older using the MDRD formula (not corrected for weight), is valid for stable renal function. Globulin (S) [Mass/Vol] 2.9 g/dL 2.3 - 3.5 g/dL [employer] Phone: Glucose [Mass/Vol] 85 mg/dL 70 - 99 mg/dL [employer] Phone: Interpretation and review of laboratory results Abnormal [employer]hub Phone: Potassium reflex Magnesium 3.7 [employer]hub Phone: Sodium [Moles/Vol] 141 mmol/L [employer] Phone: Urea nitrogen (BldV) [Mass/Vol] 13 mg/dL 6 - 20 mg/dL [employer] Phone: Collection has been rescheduled by JEFFRY at 09/03/2020 06:16 Reason: No suitable vein for venipuncture [employer]hub Phone: myhub Phone: Lactic Acidon 09-03-2020 Lactate [Moles/Vol] 0.7 mmol/L Normal 0.5-2.2 [facility] Comment on above: Order Comment: Colle ction has been rescheduled by JEFFRY at 09/03/2020 06:16 Reason: Nosuitable vein for venipuncture Performed By: #### H BSG #### [facility] [address] [place] [address] Lactic acid, plasmaOrdered B y: Ninoska Rogers-Noni on 09-03-2020 Lactate [Moles/Vol] 0.7 mmol/L 0.5 - 2. 2 mmol/L [employer] Phone: Collection has been rescheduled by JEFFRY at 09/03/2020 06:16 Reason: No suitable vein for venipuncture [employer]hub Phone: myhub Phone: Trichmonas Vaginalis Screen (EIA)on 09-03-2020 Trichomonas Vaginalis Screen (EIA) Negative Normal [facility] Comment on above: Performed By: #### C MP #### [facility] [address] [place] [address] Wet Prep-Medical [employer]poses On monzon 09-03-2020 Wet Prep Clue Cellls <1+ Abnormal [facility] Comment on above: Performed By: #### C MP #### [facility] [address] [place] [address] Wet Prep Trichomonas See EIA [facility] Comment on above: Performed By: #### C MP #### [facility] [address] [place] [address] Wet Prep Yeast None Seen Normal [facility] Comment on above: Performed By: #### C MP #### [facility] [address] [place] [address] CBC Auto DifferentialOrdered By: Ally Villeda on 09-02-2020 Basophils (Bld) [#/Vol] 0.1 10*3/uL 0.0 - 0.2 K/uL [employer] Phone: Basophils/100 WBC (Bld) 0.7 % M [employer] Phone: [phone] Eosinophils (Bld) [#/Vol] 0.1 10*3/uL 0.0 - 0.7 K/uL [employer] Phone: Eosinophils/100 WBC (Bld) 1.2 % [employer]hub Phone: Hematocrit (Bld) [Volume fraction] 36.6 % Low 37.0 - 47.0 % [employer] Phone: Hemoglobin.gastrointest inal spec 1 Ql (Stl) 11.9 g/dL Low 12.0 - 16.0 g/dL [employer] Phone: Interpretation and review of laboratory results Abnormal [employer]hub Phone: Lymphocytes (Bld) [#/Vol] 4.0 10*3/uL 1.0 - 4.8 K/uL [employer] Phone: Lymphocytes/100 WBC (Bld) 37.0 % myhub Phone: MCH (RBC) [Entitic mass] 25.8 pg Low 27.0 - 31.3 pg [employer]hub Phone: MCHC (RBC) [Mass/Vol] 32.4 % Low 33.0 - 37.0 % [employer]hub Phone: MCV (RBC) [Entitic vol] 79.7 fL Low 82.0 - 100.0 fL [employer] Phone: Monocytes (Bld) [#/Vol] 0.6 10*3/uL 0.2 - 0.8 K/uL [employer]hub Phone: Monocytes/100 WBC (Bld) 5.8 % M [employer] Phone: Neutrophils Absolute 5.9 K/uL 1.4 - 6 .5 K/uL [employer] Phone: Neutrophils/100 WBC (Bld) 55.3 % [employer]hub Phone: Platelet distribution width (Bld) [Ratio] 19.9 % High 11.5 - 14.5 % [employer]hub Phone: Platelets (Bld) [#/Vol] 299 10*3/uL 130 - 400 K/uL [employer] Phone: RBC (Bld) [#/Vol] 4.59 10*6/uL [employer] Phone: WBC (Bld) [#/Vol] 10.7 10*3/uL 4.8 - 10.8 K/uL myhub Phone: myhub Phone: CBC With Platelet and Differ entialon 09-02-2020 Basophils (Bld) [#/Vol] 0.1 10*3/uL Normal 0.0-0.2 [facility] Comment on above: Performed By: #### C MP #### [facility] [address] [place] [address] Basophils/100 WBC (Bld) 0.7 % Normal [facility] Comment on above: Performed By: #### C MP #### [facility] [address] [place] [address] Eosinophils (Bld) [#/Vol] 0.1 10*3/uL Normal 0.0-0.7 [facility] Comment on above: Performed By: #### C MP #### [facility] [address] [place] [address] Eosinophils/100 WBC (Bld) 1.2 % Normal [facility] Comment on above: Performed By: #### C MP #### [facility] [address] [place] [address] Erythrocyte distribution width (RBC) [Ratio] 19.9 % Critically high 11.5-14.5 [facility] Comment on above: Performed By: #### C MP #### [facility] [address] [place] [address] Hematocrit (Bld) [Volume fraction] 36.6 % Low 37.0-47.0 [facility] Comment on above: Performed By: #### C MP #### [facility] [address] [place] [address] Hemoglobin (Bld) [Mass/Vol] 11.9 g/dL Low 12.0-16.0 [facility] Comment on above: Performed By: #### C MP #### [facility] [address] [place] [address] Lymphocytes (Bld) [#/Vol] 4.0 10*3/uL Normal 1.0-4.8 [facility] Comment on above: Performed By: #### C MP #### [facility] [address] [place] [address] Lymphocytes/100 WBC (Bld) 37.0 % Normal [facility] Comment on above: Performed By: #### C MP #### [facility] [address] [place] [address] MCH (RBC) [Entitic mass] 25.8 pg Low 27.0-31.3 [facility] Comment on above: Performed By: #### C MP #### [facility] [address] [place] [address] MCHC 32.4 % Low 33.0-37.0 [facility] Comment on above: Performed By: #### C MP #### [facility] [address] [place] [address] MCV (RBC) [Entitic vol] 79.7 fL Low 82.0-100.0 M [facility] Comment on above: Performed By: #### C MP #### [facility] [address] [place] [address] Monocytes (Bld) [#/Vol] 0.6 10*3/uL Normal 0.2-0.8 [facility] Comment on above: Performed By: #### C MP #### [facility] [address] [place] [address] Monocytes/100 WBC (Bld) 5.8 % Normal [facility] Comment on above: Performed By: #### C MP #### [facility] [address] [place] [address] Neutrophils (Bld) [#/Vol] 5.9 10*3/uL Normal 1.4-6.5 [facility] Comment on above: Performed By: #### C MP #### [facility] [address] [place] [address] Neutrophils/100 WBC (Bld) 55.3 % Normal [facility] Comment on above: Performed By: #### C MP #### [facility] [address] [place] [address] Platelets (Bld) [#/Vol] 299 10*3/uL Normal 130-400 [facility] Comment on above: Performed By: #### C MP #### [facility] [facility] [address] [place] [address] RBC (Bld) [#/Vol] 4.59 10*6/uL Normal 4.20-5.40 [facility] Comment on above: Performed By: #### C MP #### [facility] [address] [place] [address] WBC (Bld) [#/Vol] 10.7 10*3/uL Normal 4.8-10.8 [facility] Comment on above: Performed By: #### C MP #### [facility] [address] [place] [address] CT ABDOMEN PELVIS W IV CONTR Oni 09-02-2020 CT ABDOMEN PELVIS W IV CONTRAST Comparison: March 20, 2017 History: Abdominal pain rectal bleeding Technique: CT ABDOMEN PELVIS W IV CONTRAST Helically Acquired CT of the abdomen and pelvis was performed during the intravenous infusion of 100 mL of Isovue-370. Axial delayed images were also performed. Reformatted sagittal and coronal images were also obtained. Findings: The visualized bases of the lungs contain no consolidating pneumonia, pleural effusion or pneumothorax. The liver, spleen, pancreas and adrenal glands are unremarkable. The gallbladder is contracted.. Bilaterally both kidneys show uptake and excretion of contrast with no evidence for hydronephrosis or renal calculi. The appendix is normal. No aneurysm or dissection is present. A small umbilical hernia seen that contains fat. Bowel wall thickening is seen in the ascending and transverse colon. The appendix is normal. No dilated loops of bowel or free air is seen. Small amount of free fluid is seen posteriorly in the pelvis. Within the pelvis the uterus Is unremarkable.. The contrast is seen layering in the bladder. The osseous structures contain no destructive lesions. IMPRESSION: Impression: 1. Findings are suggestive of colitis There is no evidence for obstruction. No evidence of appendicitis or diverticulitis seen. 2. No hydronephrosis is seen All CT scans at this facility use dose modulation, iterative reconstruction, and/or weight based dosing Interpreted by: Maia Riojas DO Signed by: Maia Riojas DO 09/03/[address] [facility] Comprehensive Metabolic Pane sil 09-02-2020 Albumin [Mass/Vol] 4.9 g/dL Critically high 3.5-4.6 [facility] Comment on above: Performed By: #### C MP #### [facility] [address] [place] [address] ALP [Catalytic activity/Vol] 53 U/L Normal 40-130 [facility] Comment on above: Performed By: #### C MP #### [facility] [address] [place] [address] ALT [Catalytic activity/Vol] U/L Normal 0-33 [facility] Comment on above: Performed By: #### C MP #### [facility] [address] [place] [address] Anion gap [Moles/Vol] 12 mmol/L Normal 9-15 [facility] Comment on above: Performed By: #### C MP #### [facility] [address] [place] [address] AST [Catalytic activity/Vol] 12 U/L Normal 0-35 [facility] Comment on above: Performed By: #### C MP #### [facility] [address] [place] [address] Bilirubin [Mass/Vol] mg/dL Normal 0[facility]2-0.7 [facility] Comment on above: Performed By: #### C MP #### [facility] [address] [place] [address] Calcium [Mass/Vol] 10.2 mg/dL Critically high 8.5-9.9 [facility] Comment on above: Performed By: #### C MP #### [facility] [address] [place] [address] Chloride [Moles/Vol] 106 mmol/L Normal 95-107 [facility] Comment on above: Performed By: #### C MP #### [facility] [address] [place] [address] CO2 [Moles/Vol] 24 mmol/L Normal 20-31 [facility] Comment on above: Performed By: #### C MP #### [facility] [address] [place] [address] Creatinine [Mass/Vol] 0.80 mg/dL Normal 0.50-0.90 [facility] Comment on above: Performed By: #### C MP #### [facility] [address] [place] [address] GFR >60.0 Normal >60 [facility] Comment on above: Result Comment: >60 mL/min/1.73m2 EGFR, calc. for ages 18 and older using the MDRD formula (not corrected for weight), is valid for stable renal function. Performed By: #### C MP #### [facility] [address] [place] [address] GFR/1.73 sq M.predicted among blacks MDRD (S/P/Bld) [Vol rate/Area] mL/min/{1.73_m2} Normal >60 [facility] Comment on above: Result Comment: >60 mL/min/1.73m2 EGFR, calc. for ages 18 and older using the MDRD formula (not corrected for weight), is valid for stable renal function. Performed By: #### C MP #### [facility] [address] [place] [address] Globulin (S) [Mass/Vol] 3.5 g/dL Normal 2.3-3.5 [facility] Comment on above: Performed By: #### C MP #### [facility] [address] [place] [address] Glucose [Mass/Vol] 118 mg/dL Critically high 70-99 [facility] Comment on above: Performed By: #### C MP #### [facility] [address] [place] [address] Potassium [Moles/Vol] 4.4 mmol/L Normal 3.4-4.9 [facility] Comment on above: Performed By: #### C MP #### [facility] [address] [place] [address] Protein [Mass/Vol] 8.4 g/dL Critically high 6.3-8.0 [facility] Comment on above: Performed By: #### C MP #### [facility] [address] [place] [address] Sodium [Moles/Vol] 142 mmol/L Normal 135-144 [facility] Comment on above: Performed By: #### C MP #### [facility] [address] [place] [address] Urea nitrogen [Mass/Vol] 13 mg/dL Normal 6-20 [facility] Comment on above: Performed By: #### C MP #### [facility] [address] [place] [id number] Comprehensive Metabolic Pane lOrdered By: Ally Villeda on 09-02-2020 Albumin [Mass/Vol] 4.9 g/dL High 3.5 - 4.6 g/dL [employer] Phone: ALP (Bld) [Catalytic activity/Vol] 53 U/L 40 - 130 U/L [employer] Work Phone: ALT [Catalytic activity/Vol] U/L 0 - 33 U/L [employer] Phone: Anion gap [Moles/Vol] 12 mmol/L [facility] [employer] Work Phone: AST [Catalytic activity/Vol] 12 U/L 0 - 35 U/L [facility]: Bilirubin [Mass/Vol] mg/dL 0.2 - 0 .7 mg/dL [employer] Phone: Calcium [Mass/Vol] 10.2 mg/dL High 8.5 - 9.9 mg/dL [employer] Phone: Chloride [Moles/Vol] 106 mmol/L [employer] Phone: CO2 [Moles/Vol] 24 mmol/L [facility]: Creatinine [Mass/Vol] 0.8 mg/dL 0.50 - 0.90 mg/dL [employer] Phone: Free PSA/Total PSA [Mass fraction] 8.4 g/dL High 6.3 - 8.0 g/dL [employer] Phone: GFR >60.0 >60 [employer] Phone: Comment on above: >60 mL/min/1.73m2 EG FR, calc. for ages 18 and older using the MDRD formula (not corrected for weight), is valid for stable renal function. GFR Non- >60.0 >60 [employer] Phone: Comment on above: >60 mL/min/1.73m2 EG FR, calc. for ages 18 and older using the MDRD formula (not corrected for weight), is valid for stable renal function. Globulin (S) [Mass/Vol] 3.5 g/dL 2.3 - 3.5 g/dL [facility] Phone: Glucose [Mass/Vol] 118 mg/dL High 70 - 99 mg/dL [facility] Phone: Interpretation and review of laboratory results Abnormal [facility] Potassium [Moles/Vol] 4.4 mmol/L [facility] [employer] Phone: Sodium [Moles/Vol] 142 mmol/L [facility] Phone: Urea nitrogen (BldV) [Mass/Vol] 13 mg/dL 6 - 20 mg/dL [facility] Phone: [facility] Phone: Culture, Urineon 09-02-2020 Culture, Urine ORDER#: [id number] ORDERED BY: ALLY GIRARD SOURCE: Urine Clean Catch COLLECTED: 09/02/20 19:15 ANTIBIOTICS AT HETAL.: RECEIVED : 09/02/20 20:11 Culture, Urine FINAL 09/04/20 08:19 <50,000 CFU/ml of mixed osmar Multiple organisms isolated, no predominance. Culture indicates probable contamination. Please review colony count and clinical indications to determine if a repeat culture is necessary. No further workup to be done. Normal [facility] Comment on above: Performed By: #### H BSG #### [facility] [address] [place] [address] Lactic Acidon 09-02-2020 Lactate [Moles/Vol] 0.8 mmol/L Normal 0.5-2.2 [facility] Comment on above: Performed By: #### C MP #### [facility] [address] [place] [address] Lactate [Moles/Vol] 3.6 mmol/L Critically high 0.5-2.2 [facility] Comment on above: Order Comment: CALL [employer] tel. [phone],TROP results called to and read back by MARITZA CANNON RN, 09/02/2020 20:26,by [employer] Performed By: #### C MP #### [facility] [address] [place] [address] Lactic Acid, PlasmaOrdered B y: Ally Villeda on 09-02-2020 Lactate [Moles/Vol] 0.8 mmol/L 0.5 - 2. 2 mmol/L [employer] Work Phone: [employer] Phone: Interpretation and review of laboratory results Abnormal [employer] Phone: Lactate [Moles/Vol] 3.6 mmol/L Critically high 0.5 - 2.2 mmol/L [employer] Phone: CALL [employer] [facility] tel. [phone], TROP results called to and read back by MARITZA CANNON RN, 09/02/2020 20:26, by [employer] Phone: [employer]hub Phone: Microscopic UrinalysisOrdere d By: Ally Villeda on 09-02-2020 Bacteria, UA RARE Abnormal Negative /HPF [employer] Work Phone: Epithelial Cells, UA 6-10 [employer] Work Phone: Hyaline Casts, UA 5-10 [employer] Work Phone: RBC, UA 6-10 Abnormal [employer] Work Phone: WBC, UA 20-50 Abnormal [employer] Work Phone: No Panel InformationOrdered By: Ally Villeda on 09-02-2020 Interpretation and review of laboratory results Abnormal [employer] Phone: myhub Phone: POCT CREATININEOrdered By: Cristopher Villeda on 09-02-2020 Interpretation and review of laboratory results Normal [employer] Phone: POC CREATININE WHOLE BLOOD 0.9 [employer] Phone: myhub Phone: POCT VenousOrdered By: Tresa Torres on 09-02-2020 Creatinine [Mass/Vol] 0.9 mg/dL 0.6 - 1.1 mg/dL [employer] Phone: GFR >60 >60 [employer] Phone: Comment on above: >60 mL/min/1.73m2 EG FR, calc. for ages 18 and older using the MDRD formula (not corrected for weight), is valid for stable renal function. GFR Non- >60 >60 [employer] Phone: Comment on above: >60 mL/min/1.73m2 EG FR, calc. for ages 18 and older using the MDRD formula (not corrected for weight), is valid for stable renal function. Performed on SEE BELOW [employer] Phone: Comment on above: Performed on POC Sample Type RONNY [employer]hub Phone: myhub Phone: POCT Venouson 09-02-2020 Creatinine [Mass/Vol] 0.9 mg/dL Normal 0.6-1.1 [facility] Comment on above: Performed By: #### H BSG #### [facility] [address] [place] [address] GFR >60 Normal >60 [facility] Comment on above: Result Comment: >60 mL/min/1.73m2 EGFR, calc. for ages 18 and older using the MDRD formula (not corrected for weight), is valid for stable renal function. Performed By: #### H BSG #### [facility] [address] [place] [address] GFR/1.73 sq M.predicted among blacks MDRD (S/P/Bld) [Vol rate/Area] mL/min/{1.73_m2} Normal >60 [facility] Comment on above: Result Comment: >60 mL/min/1.73m2 EGFR, calc. for ages 18 and older using the MDRD formula (not corrected for weight), is valid for stable renal function. Performed By: #### H BSG #### [facility] [address] [place] [address] POC Performed on SEE BELOW Normal [facility] Comment on above: Result Comment: Perf ormed on POC Performed By: #### H BSG #### [facility] [address] [place] [address] POC Sample Type RONNY Normal [facility] Comment on above: Performed By: #### H BSG #### [facility] [address] [place] [address] Trichomonas by EIAOrdered By : Ally Villeda on 09-02-2020 TRICHOMONAS VAGINALIS SCREEN Negative [facility] [employer] Phone: [facility] [employer] Phone: Urinalysis, reflex to cultur marc 09-02-2020 Urine Reflexed to Culture Yes Normal [facility] Comment on above: Performed By: #### C MP #### [facility] [address] [place] [address] Bilirubin Ql (U) Negative Normal Negative [facility] Comment on above: Performed By: #### C MP #### [facility] [address] [place] [address] Clarity (U) Clear Normal Clear [facility] Comment on above: Performed By: #### C MP #### [facility] [address] [place] [address] Color (U) Yellow Normal Straw/Stearns [facility] Comment on above: Performed By: #### C MP #### [facility] [address] [place] [address] Glucose Ql (U) Negative Normal Negative [facility] Comment on above: Performed By: #### C MP #### [facility] [address] [place] [address] Hemoglobin Ql (U) Negative Normal Negative [facility] Comment on above: Performed By: #### C MP #### [facility] [address] [place] [address] Ketones Ql (U) TRACE Abnormal Negative [facility] Comment on above: Performed By: #### C MP #### [facility] [address] [place] [address] Leukocyte esterase Test strip Ql (U) MODERATE Abnormal Negative [facility] Comment on above: Performed By: #### C MP #### [facility] [address] [place] [address] Nitrite Ql (U) Negative Normal Negative [facility] Comment on above: Performed By: #### C MP #### [facility] [address] [place] [address] pH (U) 6.5 [pH] Normal 5.0-9.0 [facility] Comment on above: Performed By: #### C MP #### [facility] [address] [place] [address] Protein Ql (U) Negative Normal Negative [facility] Comment on above: Performed By: #### C MP #### [facility] [address] [place] [address] Specific gravity (U) [Rel density] 1.023 Normal 1.005-1.03 [facility] Comment on above: Performed By: #### C MP #### [facility] [address] [place] [address] Urobilinogen Qn (U) 1.0 {Sanjeev'U}/dL Normal < 2.0 [facility] Comment on above: Performed By: #### C MP #### [facility] [address] [place] [address] Urine Microscopicon 09-03-19 21 Urine Bacteria RARE Abnormal Negative [facility] Comment on above: Performed By: #### C MP #### [facility] [address] [place] [address] Urine Epithelial Cells Auto 6-10 Normal 0-5 [facility] Comment on above: Performed By: #### C MP #### [facility] [address] [place] [address] Urine Hyaline Casts Auto 5-10 Normal 0-5 [facility] Comment on above: Performed By: #### C MP #### [facility] [address] [place] [address] Urine RBC Auto 6-10 Abnormal 0-5 [facility] Comment on above: Performed By: #### C MP #### [facility] [address] [place] [address] Urine WBC Auto 20-50 Abnormal 0-5 [facility] Comment on above: Performed By: #### C MP #### [facility] [address] [place] [address] Urine Reflex to CultureOrder ed By: Ally Villeda on 09-02-2020 Bilirubin Urine Negative Negative [employer] Phone: Blood, Urine Negative Negative [employer] Phone: Clarity, UA Clear Clear [employer] Phone: Color, UA Yellow Straw/Yellow [employer] Phone: Glucose, Ur Negative Negative mg/dL [employer] Phone: Ketones Ql (U) TRACE Abnormal Negative mg/dL [employer] Phone: Leukocyte esterase Test strip Ql (U) MODERATE Abnormal Negative [facility] Phone: Nitrite, Urine Negative Negative [facility] [employer] Phone: pH, UA 6.5 [facility] [employer] Phone: Protein, UA Negative Negative mg/dL [facility] [employer] Phone: [phone] Specific Entiat, UA 1.023 [facility] [employer] Phone: Urine Reflex to Culture Yes M [facility] [employer] Work Phone: Urobilinogen, Urine 1.0 <2.0 E.U./dL [facility] [employer] Work Phone: Wet Prep, GenitalOrdered By: Ally Villeda on 09-02-2020 Clue Cells, Wet Prep <1+ Abnormal [facility] [employer] Phone: Interpretation and review of laboratory results Abnormal [facility] Phone: Trichomonas Prep See EIA [facility] [employer] Phone: Yeast, Wet Prep None Seen [facility] Phone: [facility] [employer] Phone: HIV Ag/Abon 09-01-2020 HIV Ag/Ab Non-Reactive Normal NR [facility] Comment on above: Order Comment: CALL doctor LA390 tel. [phone], fax to Result Comment: No l aboratory evidence of HIV infection. If acute HIV infection is suspected, consider testing for HIV-1 RNA. [employer] [address] [place] [phone] CBC With Platelet and Differ entialon 08-31-2020 Basophils (Bld) [#/Vol] 0.1 10*3/uL Normal 0.0-0.2 [facility] Comment on above: Order Comment: CALL doctor [id number] tel. [phone], please fax results to [phone] Performed By: #### C BCWD #### [facility] [address] [place] [address] Basophils/100 WBC (Bld) 0.8 % Normal [facility] Comment on above: Order Comment: CALL doctor [id number] tel. [phone], please fax results to [phone] Performed By: #### C BCWD #### [facility] [address] [place] [address] Eosinophils (Bld) [#/Vol] 0.1 10*3/uL Normal 0.0-0.7 [facility] Comment on above: Order Comment: CALL doctor [id number] tel. [phone], please fax results to [phone] Performed By: #### C BCWD #### [facility] [address] [place] [address] Eosinophils/100 WBC (Bld) 1.3 % Normal [facility] Comment on above: Order Comment: CALL doctor [id number] tel. [phone], please fax results to [phone] Performed By: #### C BCWD #### [facility] [address] [place] [address] Erythrocyte distribution width (RBC) [Ratio] 20.2 % Critically high 11.5-14.5 [facility] Comment on above: Order Comment: CALL doctor [id number] tel. [phone], please fax results to [phone] Performed By: #### C BCWD #### [facility] [address] [place] [address] Hematocrit (Bld) [Volume fraction] 35.3 % Low 37.0-47.0 [facility] Comment on above: Order Comment: CALL doctor [id number] tel. [phone], please fax results to [phone] Performed By: #### C BCWD #### [facility] [address] [place] [address] Hemoglobin (Bld) [Mass/Vol] 11.8 g/dL Low 12.0-16.0 [facility] Comment on above: Order Comment: CALL doctor [id number] tel. [phone], please fax results to [phone] Performed By: #### C BCWD #### [facility] [address] [place] [address] Lymphocytes (Bld) [#/Vol] 2.3 10*3/uL Normal 1.0-4.8 [facility] Comment on above: Order Comment: CALL doctor [id number] tel. [phone], please fax results to [phone] Performed By: #### C BCWD #### [facility] [address] [place] [address] Lymphocytes/100 WBC (Bld) 31.6 % Normal [facility] Comment on above: Order Comment: CALL doctor [id number] tel. [phone], please fax results to [phone] Performed By: #### C BCWD #### [facility] [address] [place] [address] MCH (RBC) [Entitic mass] 26.1 pg Low 27.0-31.3 [facility] Comment on above: Order Comment: CALL doctor [id number] tel. [phone], please fax results to [phone] Performed By: #### C BCWD #### [facility] [address] [place] [address] MCHC 33.3 % Normal 33.0-37.0 [facility] Comment on above: Order Comment: CALL doctor [id number] tel. [phone], please fax results to [phone] Performed By: #### C BCWD #### [facility] [address] [place] [address] MCV (RBC) [Entitic vol] 78.3 fL Low 82.0-100.0 M [facility] Comment on above: Order Comment: CALL doctor [id number] tel. [phone], please fax results to [phone] Performed By: #### C BCWD #### [facility] [address] [place] [address] Monocytes (Bld) [#/Vol] 0.5 10*3/uL Normal 0.2-0.8 [facility] Comment on above: Order Comment: CALL doctor [id number] tel. [phone], please fax results to [phone] Performed By: #### C BCWD #### [facility] [address] [place] [address] Monocytes/100 WBC (Bld) 7.4 % Normal [facility] Comment on above: Order Comment: CALL doctor [id number] tel. [phone], please fax results to [phone] Performed By: #### C BCWD #### [facility] [address] [place] [address] Neutrophils (Bld) [#/Vol] 4.2 10*3/uL Normal 1.4-6.5 [facility] Comment on above: Order Comment: CALL doctor [id number] tel. [phone], please fax results to [phone] Performed By: #### C BCWD #### [facility] [address] [place] [address] Neutrophils/100 WBC (Bld) 58.9 % Normal [facility] Comment on above: Order Comment: CALL doctor [id number] tel. [phone], please fax results to [phone] Performed By: #### C BCWD #### [facility] [address] [place] [address] Platelets (Bld) [#/Vol] 270 10*3/uL Normal 130-400 [facility] Comment on above: Order Comment: CALL doctor [id number] tel. [phone], please fax results to [phone] Performed By: #### C BCWD #### [facility] [address] [place] [address] RBC (Bld) [#/Vol] 4.51 10*6/uL Normal 4.20-5.40 [facility] Comment on above: Order Comment: CALL doctor [id number] tel. [phone], please fax results to [phone] Performed By: #### C BCWD #### [facility] [address] [place] [address] WBC (Bld) [#/Vol] 7.2 10*3/uL Normal 4.8-10.8 [facility] Comment on above: Order Comment: CALL doctor [id number] tel. [phone], please fax results to [phone] Performed By: #### C BCWD #### [facility] [address] [place] [address] Comprehensive Metabolic Pane sil 08-31-2020 Albumin [Mass/Vol] 4.5 g/dL Normal 3.5-4.6 [facility] Comment on above: Order Comment: CALL doctor [id number] tel. [phone], please fax results to [phone] Performed By: #### C MP #### [facility] [address] [place] [address] ALP [Catalytic activity/Vol] 54 U/L Normal 40-130 [facility] Comment on above: Order Comment: CALL doctor [id number] tel. [phone], please fax results to [phone] Performed By: #### C MP #### [facility] [address] [place] [address] ALT [Catalytic activity/Vol] 6 U/L Normal 0-33 [facility] Comment on above: Order Comment: CALL doctor [id number] tel. [phone], please fax results to [phone] Performed By: #### C MP #### [facility] [address] [place] [address] Anion gap [Moles/Vol] 13 mmol/L Normal 9-15 [facility] Comment on above: Order Comment: CALL doctor [id number] tel. [phone], please fax results to [phone] Performed By: #### C MP #### [facility] [address] [place] [address] AST [Catalytic activity/Vol] 11 U/L Normal 0-35 [facility] Comment on above: Order Comment: CALL doctor [id number] tel. [phone], please fax results to [phone] Performed By: #### C MP #### [facility] [address] [place] [address] Bilirubin [Mass/Vol] 0.4 mg/dL [facility]0.7 [facility] Comment on above: Order Comment: CALL doctor [id number] tel. [phone], please fax results to [phone] Performed By: #### C MP #### [facility] [address] [place] [address] Calcium [Mass/Vol] 10.0 mg/dL Critically high 8.5-9.9 [facility] Comment on above: Order Comment: CALL doctor [id number] tel. [phone], please fax results to [phone] Performed By: #### C MP #### [facility] [address] [place] [address] Chloride [Moles/Vol] 106 mmol/L Normal 95-107 [facility] Comment on above: Order Comment: CALL doctor [id number] tel. [phone], please fax results to [phone] Performed By: #### C MP #### [facility] [address] [place] [address] CO2 [Moles/Vol] 21 mmol/L Normal 20-31 [facility] Comment on above: Order Comment: CALL doctor [id number] tel. [phone], please fax results to [phone] Performed By: #### C MP #### [facility] [address] [place] [address] Creatinine [Mass/Vol] 0.68 mg/dL Normal 0.50-0.90 [facility] Comment on above: Order Comment: CALL doctor [id number] tel. [phone], please fax results to [phone] Performed By: #### C MP #### [facility] [address] [place] [address] GFR >60.0 Normal >60 [facility] Comment on above: Order Comment: CALL doctor [id number] tel. [phone], please fax results to [phone] Result Comment: >60 mL/min/1.73m2 EGFR, calc. for ages 18 and older using the MDRD formula (not corrected for weight), is valid for stable renal function. Performed By: #### C MP #### [facility] [address] [place] [address] GFR/1.73 sq M.predicted among blacks MDRD (S/P/Bld) [Vol rate/Area] mL/min/{1.73_m2} Normal >60 [facility] Comment on above: Order Comment: CALL doctor [id number] tel. [phone], please fax results to [phone] Result Comment: >60 mL/min/1.73m2 EGFR, calc. for ages 18 and older using the MDRD formula (not corrected for weight), is valid for stable renal function. Performed By: #### C MP #### [facility] [address] [place] [address] Globulin (S) [Mass/Vol] 3.1 g/dL Normal 2.3-3.5 [facility] Comment on above: Order Comment: CALL doctor [id number] tel. [phone], please fax results to [phone] Performed By: #### C MP #### [facility] [address] [place] [address] Glucose [Mass/Vol] 98 mg/dL Normal 70-99 [facility] Comment on above: Order Comment: CALL doctor [id number] tel. [phone], please fax results to [phone] Performed By: #### C MP #### [facility] [address] [place] [address] Potassium [Moles/Vol] 4.1 mmol/L Normal 3.4-4.9 [facility] Comment on above: Order Comment: CALL doctor [id number] tel. [phone], please fax results to [phone] Performed By: #### C MP #### [facility] [address] [place] [address] Protein [Mass/Vol] 7.6 g/dL Normal 6.3-8.0 [facility] Comment on above: Order Comment: CALL doctor [id number] tel. [phone], please fax results to [phone] Performed By: #### C MP #### [facility] [address] [place] [address] Sodium [Moles/Vol] 140 mmol/L Normal 135-144 [facility] Comment on above: Order Comment: CALL doctor [id number] tel. [phone], please fax results to [phone] Performed By: #### C MP #### [facility] [address] [place] [address] Urea nitrogen [Mass/Vol] 16 mg/dL Normal 6-20 [facility] Comment on above: Order Comment: CALL doctor [id number] tel. [phone], please fax results to [phone] Performed By: #### C MP #### [facility] [address] [place] [address] Hepatitis Acute Panelon 06- Hepatitis Profile Interp see below Normal [facility] Comment on above: Order Comment: CALL doctor LA390 tel. [phone], fax to Result Comment: The acute hepatitis panel is negative. There is no evidence of acute hepatitis A, B, C. Performed By: #### C BCWD #### [facility] [address] [place] [address] Hepatitis A Antibody (IgM) Interp Non-Reactive Normal [facility] Comment on above: Order Comment: CALL doctor LA390 tel. [phone], fax to Performed By: #### C BCWD #### [facility] [address] [place] [address] Hepatitis B Core Ab IgM Interp Non-Reactive Normal [facility] Comment on above: Order Comment: CALL doctor LA390 tel. [phone], fax to Performed By: #### C BCWD #### [facility] [address] [place] [address] Hepatitis B Surface Ag Interp Non-Reactive Normal [facility] Comment on above: Order Comment: CALL doctor LA390 tel. [phone], fax to Performed By: #### C BCWD #### [facility] [address] [place] [address] Hepatitis C Antibody Interp Non-Reactive Normal [facility] Comment on above: Order Comment: CALL doctor LA390 tel. [phone], fax to Performed By: #### C BCWD #### [facility] [address] [place] [address] RPRon 08-31-2020 Reagin Ab RPR Ql (S) Non-Reactive Normal Non-reacti [facility] Comment on above: Order Comment: CALL doctor LA390 tel. [phone], fax to Performed By: #### C BCWD #### [facility] [address] [place] [address] TSH w/out Reflexon TSH w/out Reflex 0.930 uIU/mL Normal 0.440-3.86 [facility] Comment on above: Order Comment: CALL doctor LA390 tel. [phone], fax to Performed By: #### C BCWD #### [facility] [address] [place] [address] XR CALCANEUS RIGHT (MIN 2 EWS)on 05-27-2020 XR CALCANEUS RIGHT (MIN 2 VIEWS) COMPARISON: No prior HISTORY: M79.671 Pain of right heel ICD10 PATIENT NAME: CRYSTAL ENNISL: TECHNIQUE: XR CALCANEUS RIGHT (MIN 2 VIEWS) FINDINGS: No acute fracture or dislocation is seen. There are no erosions, heel spur or radiopaque foreign body seen. IMPRESSION: No evidence for fracture or dislocation Interpreted by: Maia Riojas DO Signed by: Maia Riojas DO 05/27/[address] [facility] Dog Behaviorist Noteon 01-18 Dog Behaviorist Note Progress Note SW received a referral follow up from [facility]. Pt is eligible for the home visiting program and is currently on the wait list. Signatures Electronically signed by : MARTA Kidd; Jan 19 2020 2:39PM EST (Author) Normal [facility] HIV-1,2 Combo Ag/Ab, Reflexi ve Panelon 12-31-2019 HIV 1,2 Combo Antigen/Antibody Negative Normal Negative [facility] Comment on above: Order Comment: CALL doctor LA390 tel. [phone], fax to Result Comment: The specimen was non-reactive for HIV-1 and HIV-2 antibodies, and p24 antigen. Based on this non-reactive screen result, further reflexive testing was not indicated and was, therefore, not performed INTERPRETIVE INFORMATION: HIV-1,2 Combo Ag/Ab EIA, w/Reflex This assay should not be used for blood donor screening, associated re-entry protocols, or for screening Human Cells, Tissues, and Cellular and Tissue-Based Products (HCT/P). Performed by [employer], [address] [place] [id number] [email or web address], Vonda Pichardo MD - Lab. Director RPRon 12-30-2019 Reagin Ab RPR Ql (S) Non-Reactive Normal Non-reacti [facility] Comment on above: Order Comment: CALL doctor LA390 tel. [phone], fax to Performed By: #### R [place] #### [facility] [address] [place] [address] CBC With Platelet and Differ entialon 12-29-2019 Basophils (Bld) [#/Vol] 0.0 10*3/uL Normal 0.0-0.2 [facility] Comment on above: Order Comment: CALL doctor LA390 tel. [phone], fax to Performed By: #### C BCWD #### [facility] [address] [place] [address] Basophils/100 WBC (Bld) 0.4 % Normal [facility] Comment on above: Order Comment: CALL doctor LA390 tel. [phone], fax to Performed By: #### C BCWD #### [facility] [address] [place] [address] Eosinophils (Bld) [#/Vol] 0.6 10*3/uL Normal 0.0-0.7 [facility] Comment on above: Order Comment: CALL doctor LA390 tel. [phone], fax to Performed By: #### C BCWD #### [facility] [address] [place] [address] Eosinophils/100 WBC (Bld) 6.3 % Normal [facility] Comment on above: Order Comment: CALL doctor LA390 tel. [phone], fax to Performed By: #### C BCWD #### [facility] [address] [place] [address] Erythrocyte distribution width (RBC) [Ratio] 17.0 % Critically high 11.5-14.5 [facility] Comment on above: Order Comment: CALL doctor LA390 tel. [phone], fax to Performed By: #### C BCWD #### [facility] [address] [place] [address] Hematocrit (Bld) [Volume fraction] 32.0 % Low 37.0-47.0 [facility] Comment on above: Order Comment: CALL doctor LA390 tel. [phone], fax to Performed By: #### C BCWD #### [facility] [address] [place] [address] Hemoglobin (Bld) [Mass/Vol] 10.2 g/dL Low 12.0-16.0 [facility] Comment on above: Order Comment: CALL doctor LA390 tel. [phone], fax to Performed By: #### C BCWD #### [facility] [address] [place] [address] Lymphocytes (Bld) [#/Vol] 3.1 10*3/uL Normal 1.0-4.8 [facility] Comment on above: Order Comment: CALL doctor LA390 tel. [phone], fax to Performed By: #### C BCWD #### [facility] [address] [place] [address] Lymphocytes/100 WBC (Bld) 35.2 % Normal [facility] Comment on above: Order Comment: CALL doctor LA390 tel. [phone], fax to Performed By: #### C BCWD #### [facility] [address] [place] [address] MCH (RBC) [Entitic mass] 25.3 pg Low 27.0-31.3 [facility] Comment on above: Order Comment: CALL doctor LA390 tel. [phone], fax to Performed By: #### C BCWD #### [facility] [address] [place] [address] MCHC 31.8 % Low 33.0-37.0 [facility] Comment on above: Order Comment: CALL doctor LA390 tel. [phone], fax to Performed By: #### C BCWD #### [facility] [address] [place] [address] MCV (RBC) [Entitic vol] 79.6 fL Low 82.0-100.0 [facility] Comment on above: Order Comment: CALL doctor LA390 tel. [phone], fax to Performed By: #### C BCWD #### [facility] [address] [place] [address] Monocytes (Bld) [#/Vol] 0.6 10*3/uL Normal 0.2-0.8 [facility] Comment on above: Order Comment: CALL doctor LA390 tel. [phone], fax to Performed By: #### C BCWD #### [facility] [address] [place] [address] Monocytes/100 WBC (Bld) 6.4 % Normal [facility] Comment on above: Order Comment: CALL doctor LA390 tel. [phone], fax to Performed By: #### C BCWD #### [facility] [address] [place] [address] Neutrophils (Bld) [#/Vol] 4.6 10*3/uL Normal 1.4-6.5 [facility] Comment on above: Order Comment: CALL doctor LA390 tel. [phone], fax to Performed By: #### C BCWD #### [facility] [address] [place] [address] Neutrophils/100 WBC (Bld) 51.7 % Normal [facility] Comment on above: Order Comment: CALL doctor LA390 tel. [phone], fax to Performed By: #### C BCWD #### [facility] [address] [place] [address] Platelets (Bld) [#/Vol] 408 10*3/uL Critically high 130-[address] [facility] Comment on above: Order Comment: CALL doctor LA390 tel. [phone], fax to Performed By: #### C BCWD #### [facility] [address] [place] [address] RBC (Bld) [#/Vol] 4.02 10*6/uL Low 4.20-5.40 [facility] Comment on above: Order Comment: CALL doctor LA390 tel. [phone], fax to Performed By: #### C BCWD #### [facility] [address] [place] [address] WBC (Bld) [#/Vol] 8.8 10*3/uL Normal 4.8-10.8 [facility] Comment on above: Order Comment: CALL doctor LA390 tel. [phone], fax to Performed By: #### C BCWD #### [facility] [address] [place] [address] Hepatitis B Core Ab IgMon Hepatitis B Core Ab IgM Interp Non-Reactive Normal [facility] Comment on above: Order Comment: CALL doctor LA390 tel. [phone], fax to Performed By: #### H BCMA #### [facility] [address] [place] [address] Hepatitis B Surface Abon Hepatitis B Surface Ab Interp Reactive Normal [facility] Comment on above: Order Comment: CALL doctor LA390 tel. [phone], fax to Result Comment: <8.5 = Non-reactive >=8.5 and <11.5 = Equivocal >=11.5 = REACTIVE (Immune) Performed By: #### H BSB #### [facility] [address] [place] [address] Hepatitis C Antibodyon 12-28 Hepatitis C Antibody Interp Non-Reactive Normal [facility] Comment on above: Order Comment: CALL doctor LA390 tel. [phone], fax to Performed By: #### H CVAB #### [facility] [address] [place] [address] Liver Panelon 12-29-2019 Albumin [Mass/Vol] 4.0 g/dL Normal 3.5-4.6 [facility] Comment on above: Order Comment: CALL doctor LA390 tel. [phone], fax to Performed By: #### L IVER #### [facility] [address] [place] [address] ALP [Catalytic activity/Vol] 80 U/L Normal 40-130 [facility] Comment on above: Order Comment: CALL doctor LA390 tel. [phone], fax to Performed By: #### L IVER #### [facility] [address] [place] [address] ALT [Catalytic activity/Vol] 8 U/L Normal 0-33 [facility] Comment on above: Order Comment: CALL doctor LA390 tel. [phone], fax to Performed By: #### L IVER #### [facility] [address] [place] [address] AST [Catalytic activity/Vol] 15 U/L Normal 0-35 [facility] Comment on above: Order Comment: CALL doctor LA390 tel. [phone], fax to Performed By: #### L IVER #### [facility] [address] [place] [address] Bilirubin [Mass/Vol] mg/dL [facility]0.7 [facility] Comment on above: Order Comment: CALL doctor LA390 tel. [phone], fax to Performed By: #### L IVER #### [facility] [address] [place] [address] Bilirubin Indirect see below Normal 0.0-0.6 [facility] Comment on above: Order Comment: CALL doctor LA390 tel. [phone], fax to Result Comment: Saida rect Bilirubin cannot be calculated since Total Bilirubin and/or Direct Bilirubin is below measurable range. Performed By: #### L IVER #### [facility] [address] [place] [address] Bilirubin.indirect [Mass/Vol] mg/dL Normal 0.0-0.4 [facility] Comment on above: Order Comment: CALL doctor LA390 tel. [phone], fax to Performed By: #### L IVER #### [facility] [address] [place] [address] Protein [Mass/Vol] 7.0 g/dL Normal 6.3-8.0 [facility] Comment on above: Order Comment: CALL doctor LA390 tel. [phone], fax to Performed By: #### L IVER #### [facility] [address] [place] [address] UR HCG Qualitativeon 020 Beta HCG ( test) Ql (U) Negative Normal Detects HC [facility] Comment on above: Order Comment: CALL doctor LA390 tel. [phone], fax to Performed By: #### U HCG #### [facility] [address] [place] [address] CBC With Platelet and Differ entialon 11-28-2019 Basophils (Bld) [#/Vol] 0.1 10*3/uL Normal 0.0-0.2 [facility] Comment on above: Performed By: #### C BCWD #### [facility] [address] [place] [address] Basophils/100 WBC (Bld) 0.5 % Normal [facility] Comment on above: Performed By: #### C BCWD #### [facility] [address] [place] [address] Eosinophils (Bld) [#/Vol] 0.1 10*3/uL Normal 0.0-0.7 [facility] Comment on above: Performed By: #### C BCWD #### [facility] [address] [place] [address] Eosinophils/100 WBC (Bld) 0.6 % Normal [facility] Comment on above: Performed By: #### C BCWD #### [facility] [address] [place] [address] Erythrocyte distribution width (RBC) [Ratio] 15.6 % Critically high 11.5-14.5 [facility] Comment on above: Performed By: #### C BCWD #### [facility] [address] [place] [address] Hematocrit (Bld) [Volume fraction] 27.5 % Low 37.0-47.0 [facility] Comment on above: Performed By: #### C BCWD #### [facility] [address] [place] [address] Hemoglobin (Bld) [Mass/Vol] 8.9 g/dL Low 12.0-16.0 [facility] Comment on above: Performed By: #### C BCWD #### [facility] [address] [place] [address] Lymphocytes (Bld) [#/Vol] 4.0 10*3/uL Normal 1.0-4.8 [facility] Comment on above: Performed By: #### C BCWD #### [facility] [address] [place] [address] Lymphocytes/100 WBC (Bld) 20.4 % Normal [facility] Comment on above: Performed By: #### C BCWD #### [facility] [address] [place] [address] MCH (RBC) [Entitic mass] 25.8 pg Low 27.0-31.3 [facility] Comment on above: Performed By: #### C BCWD #### [facility] [address] [place] [address] MCHC 32.3 % Low 33.0-37.0 [facility] Comment on above: Performed By: #### C BCWD #### [facility] [address] [place] [address] MCV (RBC) [Entitic vol] 79.7 fL Low 82.0-100.0 [facility] Comment on above: Performed By: #### C BCWD #### [facility] [address] [place] [address] Monocytes (Bld) [#/Vol] 1.1 10*3/uL Critically high 0.2-0. 8 [facility] Comment on above: Performed By: #### C BCWD #### [facility] [address] [place] [address] Monocytes/100 WBC (Bld) 5.6 % Normal [facility] Comment on above: Performed By: #### C BCWD #### [facility] [address] [place] [address] Neutrophils (Bld) [#/Vol] 14.4 10*3/uL Critically high 1.4-6.5 [facility] Comment on above: Performed By: #### C BCWD #### [facility] [address] [place] [address] Neutrophils/100 WBC (Bld) 72.9 % Normal [facility] Comment on above: Performed By: #### C BCWD #### [facility] [address] [place] [address] Platelets (Bld) [#/Vol] 302 10*3/uL Normal 130-400 [facility] Comment on above: Performed By: #### C BCWD #### [facility] [address] [place] [address] RBC (Bld) [#/Vol] 3.45 10*6/uL Low 4.20-5.40 [facility] Comment on above: Performed By: #### C BCWD #### [facility] [address] [place] [address] WBC (Bld) [#/Vol] 19.8 10*3/uL Critically high 4.8-10.8 [facility] Comment on above: Performed By: #### C BCWD #### [facility] [address] [place] [facility] [address] CBC auto differentialon 11-16 Basophils (Bld) [#/Vol] 0.1 10*3/uL 0 - 0.2 K/u L [place], [place] Basophils/100 WBC (Bld) 0.5 % M [place], [place] Eosinophils (Bld) [#/Vol] 0.1 10*3/uL 0 - 0.7 K/uL [place] Eosinophils/100 WBC (Bld) 0.6 % [place] Erythrocyte distribution width (RBC) [Ratio] 15.6 % High 11.5 - 14.5 % [place] Hematocrit (Bld) [Volume fraction] 27.5 % Low 37 - 47 % [place] Hemoglobin (Bld) [Mass/Vol] 8.9 g/dL Low 12 - 16 g/dL [place] Interpretation and review of laboratory results Abnormal [place] Lymphocytes (Bld) [#/Vol] 4.0 10*3/uL 1 - 4.8 K/uL [place] Lymphocytes/100 WBC (Bld) 20.4 % [place] MCH (RBC) [Entitic mass] 25.8 pg Low 27 - 31.3 pg [place] MCHC (RBC) [Mass/Vol] 32.3 % Low 33 - 37 % [place] MCV (RBC) [Entitic vol] 79.7 fL Low 82 - 100 fL [place] Monocytes (Bld) [#/Vol] 1.1 10*3/uL High 0.2 - 0.8 K/uL [place] Monocytes/100 WBC (Bld) 5.6 % [place] Neutrophils Absolute 14.4 K/uL High 1.4 - 6 .5 K/uL [place] Neutrophils/100 WBC (Bld) 72.9 % [place] Platelets (Bld) [#/Vol] 302 10*3/uL 130 - 400 K/uL [place] RBC (Bld) [#/Vol] 3.45 10*6/uL Low [place] WBC (Bld) [#/Vol] 19.8 10*3/uL High 4.8 - 10.8 K/uL [place] CBC With Platelet and Differ entialon 11-27-2019 Vacuolated Neutrophils Present Normal [facility] Comment on above: Performed By: #### C BCWD #### [facility] [address] [place] [address] Anisocytosis Ql (Bld) 1+ Normal [facility] Comment on above: Performed By: #### C BCWD #### [facility] [address] [place] [address] Basophils (Bld) [#/Vol] 0.0 10*3/uL Normal 0.0-0.2 [facility] Comment on above: Performed By: #### C BCWD #### [facility] [address] [place] [address] Eosinophils (Bld) [#/Vol] 0.6 10*3/uL Normal 0.0-0.7 [facility] Comment on above: Performed By: #### C BCWD #### [facility] [address] [place] [address] Eosinophils/100 WBC (Bld) 3.0 % Normal [facility] Comment on above: Performed By: #### C BCWD #### [facility] [address] [place] [address] Lymphocytes (Bld) [#/Vol] 2.1 10*3/uL Normal 1.0-4.8 [facility] Comment on above: Performed By: #### C BCWD #### [facility] [address] [place] [address] Lymphocytes/100 WBC (Bld) 11.0 % Normal [facility] Comment on above: Performed By: #### C BCWD #### [facility] [address] [place] [address] Microcytic 1+ Normal [facility] Comment on above: Performed By: #### C BCWD #### [facility] [address] [place] [address] Monocytes (Bld) [#/Vol] 1.5 10*3/uL Critically high 0.2-0. 8 [facility] Comment on above: Performed By: #### C BCWD #### [facility] [address] [place] [address] Monocytes/100 WBC (Bld) 7.7 % Normal [facility] Comment on above: Performed By: #### C BCWD #### [facility] [address] [place] [address] Myelocytes 1 % Normal [facility] Comment on above: Performed By: #### C BCWD #### [facility] [address] [place] [address] Neutrophils (Bld) [#/Vol] 15.2 10*3/uL Critically high 1.4-6.5 [facility] Comment on above: Performed By: #### C BCWD #### [facility] [address] [place] [address] Neutrophils/100 WBC (Bld) 78.0 % Normal [facility] Comment on above: Performed By: #### C BCWD #### [facility] [address] [place] [address] Platelet Slide Review Normal Normal [facility] Comment on above: Performed By: #### C BCWD #### [facility] [address] [place] [address] Basophils/100 WBC (Bld) 0.7 % Normal [facility] Comment on above: Performed By: #### C BCWD #### [facility] [address] [place] [address] Erythrocyte distribution width (RBC) [Ratio] 15.4 % Critically high 11.5-14.5 [facility] Comment on above: Performed By: #### C BCWD #### [facility] [address] [place] [address] Hematocrit (Bld) [Volume fraction] 29.7 % Low 37.0-47.0 [facility] Comment on above: Performed By: #### C BCWD #### [facility] [address] [place] [address] Hemoglobin (Bld) [Mass/Vol] 9.6 g/dL Low 12.0-16.0 [facility] Comment on above: Performed By: #### C BCWD #### [facility] [address] [place] [address] MCH (RBC) [Entitic mass] 25.9 pg Low 27.0-31.3 [facility] Comment on above: Performed By: #### C BCWD #### [facility] [address] [place] [place] [address] MCHC 32.3 % Low 33.0-37.0 [facility] Comment on above: Performed By: #### C BCWD #### [facility] [address] [place] [address] MCV (RBC) [Entitic vol] 80.1 fL Low 82.0-100.0 [facility] Comment on above: Performed By: #### C BCWD #### [facility] [address] [place] [address] Platelets (Bld) [#/Vol] 329 10*3/uL Normal 130-400 [facility] Comment on above: Performed By: #### C BCWD #### [facility] [address] [place] [address] RBC (Bld) [#/Vol] 3.71 10*6/uL Low 4.20-5.40 [facility] Comment on above: Performed By: #### C BCWD #### [facility] [address] [facility] [address] WBC (Bld) [#/Vol] 19.3 10*3/uL Critically high 4.8-10.8 [facility] Comment on above: Performed By: #### C BCWD #### [facility] [address] [facility] [address] CBC auto differentialon 11-16 Anisocytosis Ql (Bld) 1+ [place], [place] Basophils (Bld) [#/Vol] 0.0 10*3/uL 0 - 0.2 K/u L [place], [place] Basophils/100 WBC (Bld) 0.7 % [place] Eosinophils (Bld) [#/Vol] 0.6 10*3/uL 0 - 0.7 K/uL [place] Eosinophils/100 WBC (Bld) 3 % [place] Erythrocyte distribution width (RBC) [Ratio] 15.4 % High 11.5 - 14.5 % [place] Hematocrit (Bld) [Volume fraction] 29.7 % Low 37 - 47 % [place] Hemoglobin (Bld) [Mass/Vol] 9.6 g/dL Low 12 - 16 g/dL [place] Interpretation and review of laboratory results Abnormal [place] Lymphocytes (Bld) [#/Vol] 2.1 10*3/uL 1 - 4.8 K/uL [place] Lymphocytes/100 WBC (Bld) 11.0 % [place] MCH (RBC) [Entitic mass] 25.9 pg Low 27 - 31.3 pg [place] MCHC (RBC) [Mass/Vol] 32.3 % Low 33 - 37 % [place], [place] MCV (RBC) [Entitic vol] 80.1 fL Low 82 - 100 fL [place] Microcytes 1+ [place] Monocytes (Bld) [#/Vol] 1.5 10*3/uL High 0.2 - 0.8 K/uL [place] Monocytes/100 WBC (Bld) 7.7 % [place] Myelocyte Percent 1 % [place] Neutrophils (Bld) [#/Vol] Present [place] Neutrophils Absolute 15.2 K/uL High 1.4 - 6 .5 K/uL [place] Neutrophils/100 WBC (Bld) 78.0 % [place] PLATELET SLIDE REVIEW Normal [place] Platelets (Bld) [#/Vol] 329 10*3/uL 130 - 400 K/uL [place] RBC (Bld) [#/Vol] 3.71 10*6/uL Low [place] WBC (Bld) [#/Vol] 19.3 10*3/uL High 4.8 - 10.8 K/uL [place] Comprehensive Metabolic Pane sil 11-27-2019 Anion gap [Moles/Vol] 17 mmol/L Critically high 9-15 [facility] Comment on above: Performed By: #### C MP #### [facility] [address] [place] [address] Albumin [Mass/Vol] 3.0 g/dL Low 3.5-4.6 [facility] Comment on above: Performed By: #### C MP #### [facility] [address] [place] [address] ALP [Catalytic activity/Vol] 230 U/L Critically high 40-130 [facility] Comment on above: Performed By: #### C MP #### [facility] [address] [place] [address] ALT [Catalytic activity/Vol] 8 U/L Normal 0-33 [facility] Comment on above: Performed By: #### C MP #### [facility] [address] [place] [address] AST [Catalytic activity/Vol] 15 U/L Normal 0-35 [facility] Comment on above: Performed By: #### C MP #### [facility] [address] [place] [address] Bilirubin [Mass/Vol] 0.3 mg/dL [facility]2-0.7 [facility] Comment on above: Performed By: #### C MP #### [facility] [address] [place] [address] Calcium [Mass/Vol] 9.4 mg/dL Normal 8.5-9.9 [facility] Comment on above: Performed By: #### C MP #### [facility] [address] [place] [address] Chloride [Moles/Vol] 100 mmol/L Normal 95-107 [facility] Comment on above: Performed By: #### C MP #### [facility] [address] [place] [address] CO2 [Moles/Vol] 17 mmol/L Low 20-31 [facility] Comment on above: Performed By: #### C MP #### [facility] [address] [place] [address] Creatinine [Mass/Vol] 0.57 mg/dL Normal 0.50-0.90 [facility] Comment on above: Performed By: #### C MP #### [facility] [address] [place] [address] GFR >60.0 Normal >60 [facility] Comment on above: Result Comment: >60 mL/min/1.73m2 EGFR, calc. for ages 18 and older using the MDRD formula (not corrected for weight), is valid for stable renal function. Performed By: #### C MP #### [facility] [address] [place] [address] GFR/1.73 sq M.predicted among blacks MDRD (S/P/Bld) [Vol rate/Area] mL/min/{1.73_m2} Normal >60 [facility] Comment on above: Result Comment: >60 mL/min/1.73m2 EGFR, calc. for ages 18 and older using the MDRD formula (not corrected for weight), is valid for stable renal function. Performed By: #### C MP #### [facility] [address] [place] [address] Globulin (S) [Mass/Vol] 4.0 g/dL Critically high 2.3-3.5 [facility] Comment on above: Performed By: #### C MP #### [facility] [address] [place] [address] Glucose [Mass/Vol] 112 mg/dL Critically high 70-99 M [facility] Comment on above: Performed By: #### C MP #### [facility] [address] [place] [address] Potassium [Moles/Vol] 4.0 mmol/L Normal 3.4-4.9 [facility] Comment on above: Performed By: #### C MP #### [facility] [address] [place] [address] Protein [Mass/Vol] 7.0 g/dL Normal 6.3-8.0 [facility] Comment on above: Performed By: #### C MP #### [facility] [address] [place] [address] Sodium [Moles/Vol] 134 mmol/L Low 135-144 [facility] Comment on above: Performed By: #### C MP #### [facility] [address] [place] [address] Urea nitrogen [Mass/Vol] 7 mg/dL Normal 6-20 [facility] Comment on above: Performed By: #### C MP #### [facility] [address] [place] [address] Comprehensive metabolic pane sil 11-27-2019 Albumin [Mass/Vol] 3 g/dL Low 3.5 - 4.6 g/dL [place] ALP [Catalytic activity/Vol] 230 U/L High 40 - 130 U/L [place] ALT [Catalytic activity/Vol] 8 U/L 0 - 33 U/L [place] Anion gap [Moles/Vol] 17 mmol/L High [place] AST [Catalytic activity/Vol] 15 U/L 0 - 35 U/L [place] Bilirubin Ql (U) 0.3 mg/dL 0.2 - 0.7 mg/dL [place] Calcium [Mass/Vol] 9.4 mg/dL 8.5 - 9.9 mg/dL [place] Chloride [Moles/Vol] 100 mmol/L [place], [place] CO2 [Moles/Vol] 17 mmol/L Low [place] Creatinine [Mass/Vol] 0.57 mg/dL 0.5 - 0.9 mg/dL [place] GFR >60.0 >60 [place] Comment on above: >60 mL/min/1.73m2 EG FR, calc. for ages 18 and older using the MDRD formula (not corrected for weight), is valid for stable renal function. GFR Non- >60.0 >60 [place] Comment on above: >60 mL/min/1.73m2 EG FR, calc. for ages 18 and older using the MDRD formula (not corrected for weight), is valid for stable renal function. Globulin (S) [Mass/Vol] 4 g/dL High 2.3 - 3.5 g/dL [place] Glucose [Mass/Vol] 112 mg/dL High 70 - 99 mg/dL [place] Interpretation and review of laboratory results Abnormal [place] Potassium [Moles/Vol] 4.0 mmol/L [place] Protein [Mass/Vol] 7.0 g/dL 6.3 - 8 g/dL [place] Sodium [Moles/Vol] 134 mmol/L Low [place] Urea nitrogen [Mass/Vol] 7 mg/dL 6 - 20 mg/dL [place] DRUG SCREEN MULTI URINEon Amphetamine Screen, Urine Negative Negative <1000 ng/mL [place] Barbiturate Screen, Ur Negative Negat junaid < 200 ng/mL [place] Benzodiazepine Screen, Urine Negative Negative < 200 ng/mL [place] Cannabinoid Scrn, Ur Positive Abnormal Negativ e < 50 ng/mL [place] Cocaine Metabolite Screen, Urine Positive Abnormal Negative < 300 ng/mL [place] Drug Screen Comment: see below [place], [place] Comment on above: This method is a scr eening test to detect only these drug classes as part of a medical workup. Confirmatory testing by another method should be ordered if clinically indicated. Interpretation and review of laboratory results Abnormal [place] Methadone Screen, Urine Negative Nega tive <300 ng/mL [place] Comment on above: Effective: 11/24/18 New Test for Qualitative Drug Screen. Opiate Scrn, Ur Positive Abnormal Negative < 300 ng/mL [place] Oxycodone Urine Negative Negative <100 ng/mL [place] Comment on above: Effective: 11/24/18 New Test for Qualitative Drug Screen. PCP Screen, Urine Negative Negative < 25 ng/mL [place] Propoxyphene Scrn, Ur Negative Negati ve <300 ng/mL [place] Comment on above: Effective: 11/24/18 New Test for Qualitative Drug Screen. HBSAGon 11-27-2019 Hep B S Ag Interp Non-reactive [place] Hepatitis B Surface Agon Hepatitis B Surface Ag Interp Non-Reactive Normal [facility] Comment on above: Performed By: #### H BSG #### [facility] [address] [place] [id number] Microscopic Urinalysison Bacteria, UA Negative Negative /HPF [place] Epithelial Cells, UA 0-2 [place], [place] Hyaline Casts, UA 1-3 [place] Interpretation and review of laboratory results Abnormal [place] RBC (U) [#/Vol] 01-04 Abnormal [place] WBC, UA 0-2 [place] RPRon 11-27-2019 Reagin Ab RPR Ql (S) Non-Reactive Normal Non-reacti Me [facility] Comment on above: Performed By: #### R [place] #### [facility] [address] [facility] [address] RPR Reflex to Titer and TPPA on 11-27-2019 Reagin Ab RPR Ql (S) Non-reactive Non-reactive [place] Rubella Ab, IgGon 11-27-2019 Rubella Ab, IgG 94.1 IU/mL Normal [facility] Comment on above: Result Comment: Theresa ent's result indicates immunity. Default Normal Ranges >=10 Presumed Immune <10 Presumed Not immune Performed By: #### R UBEL #### [facility] [address] [facility] [address] Rubella antibody, IgGon 11-16 Rubella Antibody IgG 94.1 IU/mL [place] Comment on above: Patient's result ind icates immunity. Default Normal Ranges >=10 Presumed Immune <10 Presumed Not immune Surgical Specimenon 11-27-19 20 Surgical Specimen [facility] [address] [place] [address] FINAL SURGICAL PATHOLOGY REPORT Patient Name: CRYSTAL MACHUCA Accession No: [id number] Age Sex: 1990 Location: [place] [address] Account No: [id number] Collected: 11/27/2019 Med Rec No: [id number] Received: 12/02/2019 Attend Phys: NIA CASTILLO Completed: 12/03/2019 Perform Phys: MERRICK SOTO FINAL DIAGNOSIS: PLACENTA: THIRD TRIMESTER PLACENTA ([phone]). TRIVASCULAR UMBILICAL CORD WITH NO PATHOLOGIC FINDINGS. MEMBRANES WITH NO HISTOLOGIC FINDINGS. FOCAL VILLOUS IMMATURITY. FOCALLY INCREASED PERIVILLOUS FIBRIN DEPOSITION. FOCAL MICROCALCIFICATION. PSW/PSW CLINICAL INFORMATION: IUP, 38 07/22. OB index 3, full term 1, living 1. Complications of and labor: Limited care, IV heroin use. SPECIMEN: Placenta GROSS DESCRIPTION: Received is one container labeled with the patient's name and not further designated. The specimen consists of a placenta with attached membranes and umbilical cord. The umbilical cord is eccentrically inserted 2.5 cm from the closest margin. The umbilical cord is 29 cm in length and up to 2 cm in diameter. There are no umbilical cord knots. The cord is trivascular. The surface shows no gross lesions. The membranes are blue-titus and translucent. The placenta without membranes and umbilical cord is 729 gm. The placental disc shows dark red, intact, spongy cotyledons. The placental disc is 22 x 20 x 4 cm. The maternal surface shows a 3 mm cyst. No other gross lesions are identified. [employer]ing [employer] sections are submitted: 1 and 2 - umbilical cord, 3 - membranes, 4 - cysts, 5 and 6 - front desk representative sections of placental disc. CRISTINO/LEONIDES CPT: 86436 X1 JEFF TAY M.D. 12/03/2019 Electronically signed out by Page 1 of [address] [facility] Comment on above: Performed By: #### C MP #### [facility] [address] [place] [address] TYPE AND SCREENon 11-27-2019 ABO/Rh Positive [place] Two types on record-confirmation type not required. O Pos HX from previous LE Encounter 11/27/19 10:58 Amy Baltazar [place], [place] Type and Screen Capture 3 sc rn cellon 11-27-2019 Type and Screen Capture 3 scrn cell PATIENT: BRIGETTE Ko LOC: [facility], BILL# : [id number] : 1990 SEX: F ORDERED BY: BLAS SIN ORDERED : 11/27/2019 10:45 COLLECTED: 11/27/2019 10:50 ORDER : [id number] RECEIVED : 11/27/2019 10:51 Two types on record-confirmation type not required. O Pos HX from previous LE Encounter 11/27/19 10:58 Amy Baconeduardo ------ TEST NAME RESULT UNITS RANGES ABN FL ST ABORH Capture O POS F Antibody 3 Cell Scrn Captu NEG F ----- Normal [facility] Comment on above: Performed By: #### T S3C #### [facility] [address] [facility] [place] [address] UR Drugs of Abuse Panelon Drug Screen Comment see below Normal [facility] Comment on above: Result Comment: This method is a screening test to detect only these drug classes as part of a medical workup. Confirmatory testing by another method should be ordered if clinically indicated. Performed By: #### U DRGS #### [facility] [address] [place] [address] UR Amphetamines Screen Negative Normal Negative < [facility] Comment on above: Performed By: #### U DRGS #### [facility] [address] [place] [address] UR Barbiturates Screen Negative Normal Negative < [facility] Comment on above: Performed By: #### U DRGS #### [facility] [address] [place] [address] UR Benzo Screen Negative Normal Negative < [facility] Comment on above: Performed By: #### U DRGS #### [facility] [address] [place] [address] UR Cannabinoids Screen Positive Abnormal Negative < [facility] Comment on above: Performed By: #### U DRGS #### [facility] [address] [place] [address] UR Cocaine Screen Positive Abnormal Negative < [facility] Comment on above: Performed By: #### U DRGS #### [facility] [address] [place] [address] UR Methadone Screen Negative Normal Negative < [facility] Comment on above: Result Comment: Effe ctive: 11/24/18 New Test for Qualitative Drug Screen. Performed By: #### U DRGS #### [facility] [address] [place] [address] UR Opiates Screen Positive Abnormal Negative < [facility] Comment on above: Performed By: #### U DRGS #### [facility] [address] [place] [address] UR Oxycodone Screen Negative Normal Negative < [facility] Comment on above: Result Comment: Effe ctive: 11/24/18 New Test for Qualitative Drug Screen. Performed By: #### U DRGS #### [facility] [address] [place] [address] UR PCP Screen Negative Normal Negative < [facility] Comment on above: Performed By: #### U DRGS #### [facility] [address] [place] [address] UR Propoxyphene Screen Negative Normal Negative < [facility] Comment on above: Result Comment: Effe ctive: 11/24/18 New Test for Qualitative Drug Screen. Performed By: #### U DRGS #### [facility] [address] [place] [address] Urinalysison 11-27-2019 Bilirubin U[address] Negative Negative [facility] [place] Blood, Urine SMALL Abnormal Negative [facility] [place], [place] Clarity, UA CLOUDY Abnormal Clear [facility] [place] Color, UA DARK YELLOW Abnormal Straw/Yellow [facility] [place] Glucose, Ur Negative Negative mg/dL [facility] [place] Interpretation and review of laboratory results Abnormal [place], [place] Ketones Ql (U) TRACE Abnormal Negative mg/dL [place] Leukocyte esterase Test strip Ql (U) Negative Negative [place] Nitrite, Urine Negative Negative [place] pH, UA 8.0 [place] Protein (U) [Mass/Vol] Negative Negat junaid mg/dL [place] Specific Entiat, UA 1.020 [place], [place] Urobilinogen, Urine 1.0 <2.0 E.U./dL [place] Urinalysis, reflex to micros copicon 11-27-2019 Bilirubin Ql (U) Negative Normal Negative [facility] Comment on above: Performed By: #### U A #### [facility] [address] [place] [address] Clarity (U) CLOUDY Abnormal Clear [facility] Comment on above: Performed By: #### U A #### [facility] [address] [place] [address] Color (U) DARK YELLOW Abnormal Straw/Stearns [facility] Comment on above: Performed By: #### U A #### [facility] [address] [place] [address] Glucose Ql (U) Negative Normal Negative [facility] Comment on above: Performed By: #### U A #### [facility] [address] [place] [address] Hemoglobin Ql (U) SMALL Abnormal Negative [facility] Comment on above: Performed By: #### U A #### [facility] [address] [place] [address] Ketones Ql (U) TRACE Abnormal Negative [facility] Comment on above: Performed By: #### U A #### [facility] [address] [place] [address] Leukocyte esterase Test strip Ql (U) Negative Normal Negative [facility] Comment on above: Performed By: #### U A #### [facility] [address] [place] [address] Nitrite Ql (U) Negative Normal Negative [facility] Comment on above: Performed By: #### U A #### [facility] [address] [place] [address] pH (U) 8.0 [pH] Normal 5.0-9.0 [facility] Comment on above: Performed By: #### U A #### [facility] [address] [place] [address] Protein Ql (U) Negative Normal Negative [facility] Comment on above: Performed By: #### U A #### [facility] [address] [place] [address] Specific gravity (U) [Rel density] 1.020 Normal 1.005-1.03 [facility] Comment on above: Performed By: #### U A #### [facility] [address] [place] [address] Urobilinogen Qn (U) 1.0 {Sanjeev'U}/dL Normal < 2.0 [facility] Comment on above: Performed By: #### U A #### [facility] [address] [place] [address] Urine Microscopicon 11-27-19 20 Bacteria LM.HPF (Urine sed) [#/Area] Negative Normal Negative [facility] Comment on above: Performed By: #### U GABRIELLA #### [facility] [address] [place] [address] Urine Epithelial Cells Auto 0-2 Normal 0-5 [facility] Comment on above: Performed By: #### U GABRIELLA #### [facility] [address] [place] [address] Urine Hyaline Casts Auto 1-3 Normal 0-5 [facility] Comment on above: Performed By: #### U GABRIELLA #### [facility] [address] [place] [address] Urine RBC Auto 10-20 Abnormal 0-5 [facility] Comment on above: Performed By: #### U GABRIELLA #### [facility] [address] [place] [address] Urine WBC Auto 0-2 Normal 0-5 [facility] Comment on above: Performed By: #### U GABRIELLA #### [facility] [address] [place] [address] US OB 14 Plus Weeks Single o r First Gestationon 07-03-2019 Single live intraute rine , with estimated sonographic gestational age 8 weeks, 1 day. [place] EXAMINATION: US OB 1 4 PLUS WEEKS SINGLE OR FIRST GESTATION CLINICAL HISTORY: ANATOMY TECHNICAL FACTORS: Transabdominal and endovaginal sonography performed with endovaginal scanning obtained to better assess pelvic anatomy. FINDINGS: Grade 1 anterior placenta. Single live intrauterine , heart rate 139 bpm, in variable presentation. Estimated sonographic gestational age 18 weeks 1 day, yielding estimated sonographic date of delivery December 03, 2019. Cerebral ventricles and posterior fossa, cervical, thoracic, lumbar spine, bilateral kidneys with urinary bladder, four-chamber heart and diaphragm, stomach, cord insertion, and long bones are identified. Three-vessel cord suboptimally imaged secondary to positioning and age. [place], [place] Reggie, Chpo Incoming Radiant Results From [employer] - 07/03/2019 5:07 PM EDT EXAMINATION: US OB 14 PLUS WEEKS SINGLE OR FIRST GESTATION CLINICAL HISTORY: ANATOMY TECHNICAL FACTORS: Transabdominal and endovaginal sonography performed with endovaginal scanning obtained to better assess pelvic anatomy. FINDINGS: Grade 1 anterior placenta. Single live intrauterine , heart rate 139 bpm, in variable presentation. Estimated sonographic gestational age 18 weeks 1 day, yielding estimated sonographic date of delivery December 03, 2019. Cerebral ventricles and posterior fossa, cervical, thoracic, lumbar spine, bilateral kidneys with urinary bladder, four-chamber heart and diaphragm, stomach, cord insertion, and long bones are identified. Three-vessel cord suboptimally imaged secondary to positioning and age. IMPRESSION: Single live intrauterine , with estimated sonographic gestational age 8 weeks, 1 day. [place] BLOOD CULTURE, BACTERIALon 1 BLOOD CULTURE, BACTERIAL PATIENT: CRYSTAL MACHUCA LOCATION: [facility] HOLLOWAY#: [id number] : [birth year] AGE: SEX: F ORDERED BY: RACHEL KAUFFMAN SOURCE: Blood COLLECTED: 01/04/19 22:01 ANTIBIOTICS AT HETAL.: RECEIVED : 01/05/19 10:14 SITE: R E S U L T S BLOOD CULTURE, BACTERIAL FINAL 01/10/19 11:42 No Growth at 1 days No Growth at 2 days No Growth at 3 days No Growth at 4 days NO GROWTH - FINAL REPORT Normal [facility] Comment on above: Performed By: #### C MP #### [address] [address] BLOOD CULTURE, BACTERIAL PATIENT: CRYSTAL MACHUCA LOCATION: [facility]#: [id number] : 89 AGE: SEX: F ORDERED BY: RACHEL KAUFFMAN SOURCE: Blood COLLECTED: 01/04/19 22:00 ANTIBIOTICS AT HETAL.: RECEIVED : 01/05/19 10:12 SITE: R E S U L T S BLOOD CULTURE, BACTERIAL FINAL 01/10/19 11:42 No Growth at 1 days No Growth at 2 days No Growth at 3 days No Growth at 4 days NO GROWTH - FINAL REPORT Normal [facility] Comment on above: Performed By: #### A LC #### [place] [address] CBC AND DIFFERENTIALon 01-05 % AUTOMATED IMMATURE GRAN 0.3 % Normal 0.0 - 0.9 [facility] Comment on above: Result Comment: Perc ent differential counts (%) should be interpreted in the context of the absolute cell counts (cells/L). Performed By: #### A LC #### [place] [id number] Basophils (Bld) [#/Vol] 0.03 10*3/uL Normal 0.00 - 0.1 0 [facility] Comment on above: Performed By: #### A LC #### [place] [id number] Basophils/100 WBC (Bld) 0.2 % Normal 0.0 - 2.0 [facility] Comment on above: Performed By: #### A LC #### [address] [address] Eosinophils (Bld) [#/Vol] 0.49 10*3/uL Normal 0.00 - 0.70 [facility] Comment on above: Performed By: #### A LC #### [address] [address] Eosinophils/100 WBC (Bld) 3.2 % Normal 0.0 - 6.0 [facility] Comment on above: Performed By: #### A LC #### [address] [address] Erythrocyte distribution width (RBC) [Ratio] 14.2 % Normal 11.5 - 14.5 [facility] Comment on above: Performed By: #### A LC #### [address] [address] Hematocrit (Bld) [Volume fraction] 35.2 % Low 36.0 - 46.0 [facility] Comment on above: Performed By: #### A LC #### [address] [address] Hemoglobin (Bld) [Mass/Vol] 11.3 g/dL Low 12.0 - 16.0 [facility] Comment on above: Performed By: #### A LC #### [address] [address] Lymphocytes (Bld) [#/Vol] 2.03 10*3/uL Normal 1.20 - 4.80 [facility] Comment on above: Performed By: #### A LC #### [address] [address] Lymphocytes/100 WBC (Bld) 13.2 % Normal 13.0 - 44.0 [facility] Comment on above: Performed By: #### A LC #### [address] [address] MCHC (RBC) [Mass/Vol] 32.1 g/dL Normal 32.0 - 36.0 [facility] Comment on above: Performed By: #### A LC #### [address] [address] MCV (RBC) [Entitic vol] 87 fL Normal 80 - 100 [address] [facility] Comment on above: Performed By: #### A LC #### [address] [address] Monocytes (Bld) [#/Vol] 1.00 10*3/uL Normal 0.10 - 1.0 0 [facility] Comment on above: Performed By: #### A LC #### [address] [address] Monocytes/100 WBC (Bld) 6.5 % Normal 2.0 - 10.0 [facility] Comment on above: Performed By: #### A LC #### [address] [address] Neutrophils (Bld) [#/Vol] 11.78 10*3/uL High 1.20 - 7.70 [facility] Comment on above: Performed By: #### A LC #### [address] [address] Neutrophils/100 WBC (Bld) 76.6 % Normal 40.0 - 80.0 [facility] Comment on above: Performed By: #### A LC #### [address] [address] Platelets (Bld) [#/Vol] 313 10*3/uL Normal 150 - 450 [facility] Comment on above: Performed By: #### A LC #### [address] [address] RBC (Bld) [#/Vol] 4.03 x10E12/L Normal 4.00 - 5.20 [facility] Comment on above: Performed By: #### A LC #### [address] [address] WBC (Bld) [#/Vol] 15.4 10*3/uL High 4.4 - 11.3 [facility] Comment on above: Performed By: #### A LC #### [address] [address] COMPREHENSIVE PANELon 2018 Albumin [Mass/Vol] 3.8 g/dL Normal 3.4 - 5.0 [facility] Comment on above: Performed By: #### A LC #### [address] [address] ALP [Catalytic activity/Vol] 60 U/L Normal 33 - 110 [facility] Comment on above: Performed By: #### A LC #### [address] [address] ALT [Catalytic activity/Vol] 8 U/L Normal 7 - 45 [facility] Comment on above: Result Comment: Theresa ents treated with Sulfasalazine may generate falsely decreased results for ALT. Performed By: #### A LC #### [address] [address] Anion gap [Moles/Vol] 11 mmol/L Normal 10 - 20 [facility] Comment on above: Performed By: #### A LC #### [address] [address] AST [Catalytic activity/Vol] 12 U/L Normal 9 - 39 [facility] Comment on above: Performed By: #### A LC #### [address] [address] Bilirubin [Mass/Vol] 0.7 mg/dL Normal 0.0 - 1.2 [facility] Comment on above: Performed By: #### A LC #### [address] [address] Calcium [Mass/Vol] 8.9 mg/dL Normal 8.6 - 10.3 [facility] Comment on above: Performed By: #### A LC #### [address] [address] Chloride [Moles/Vol] 98 mmol/L Normal 98 - 107 [facility] Comment on above: Performed By: #### A LC #### [address] [address] Creatinine [Mass/Vol] 0.68 mg/dL Normal 0.50 - 1.05 [facility] Comment on above: Performed By: #### A LC #### [address] [address] GFR- AM. >60 Normal >60 [facility] Comment on above: Result Comment: CALC ULATIONS OF ESTIMATED GFR ARE PERFORMED USING THE MDRD STUDY EQUATION FOR THE IDMS-TRACEABLE CREATININE METHODS. CLIN CHEM 2007;53:766-72 Performed By: #### A LC #### [address] [address] GFR-NON AM. >60 Normal >60 [facility] Comment on above: Performed By: #### A LC #### [address] [address] Glucose [Mass/Vol] 94 mg/dL Normal 74 - 99 [facility] Comment on above: Performed By: #### A LC #### [address] [address] HCO3 (Bld) [Moles/Vol] 28 mmol/L Normal 21 - 32 [facility] Comment on above: Performed By: #### A LC #### [address] [address] Potassium [Moles/Vol] 3.5 mmol/L Normal 3.5 - 5.3 [facility] Comment on above: Performed By: #### A LC #### [address] [address] Protein [Mass/Vol] 7.1 g/dL Normal 6.4 - 8.2 [facility] Comment on above: Performed By: #### A LC #### [address] [address] Sodium [Moles/Vol] 133 mmol/L Low 136 - 145 [facility] Comment on above: Performed By: #### A LC #### [facility] [address] [place] [address] Urea nitrogen [Mass/Vol] 6 mg/dL Normal 6 - [facility] Comment on above: Performed By: #### A LC #### [facility] [address] [place] [address] HCG,SERUM QUALITATIVEon 12-17 HCG,SERUM QUALITATIVE Negative Normal Negative [facility] Comment on above: Performed By: #### A LC #### [facility] [address] [place] [address] Provider Note - ED v2on 12-17 Provider Note - ED v2 Provider Note - ED v2: Chart Review: ED NOTES ED NOTES: 28 yo F presents to the ED today with an abscess to her chin, left armpit and left buttock x 1 day. She states she has hx of abscesses and MRSA in the past. she reports pain to the abscesses and that the chin abscess is draining fluid. she denies fever, N/V/D or any other symptoms. she does report a hx of heroin use and states she used yesterday and she injects in her arms and legs. she denies any use today. she also states her addiction physician ordered bloodwork on her 2 days ago and was told she might have hepatitis B and has follow up with them next week for this issue. She denies COURTNEY, neck pain or back pain. denies CP or SOB, cough or hemoptysis. no other pain or complaints at this time. 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 HISTORY OF PRESENTING ILLNESS CRYSTAL is a 28 year old Female and was seen by me at 04-Jan-2019 21:42 for a chief complaint of abscess ("I have several abscesses and my skin feels like it's on fire, I'm in pain everywhere. I have MRSA.")(1). The historian is the patient. Triage Information: Most recent Vital Sign Value Date Temp (F): 99.3 01-04-2019 21:23 Temp (C): 37.4 01-04-2019 21:23 Heart Rate (beats/min): 98 01-04-2019 21:23 Respirations (breaths/min): 15 01-04-2019 21:23 SpO2 (%): 99 01-04-2019 21:23 BP Systolic (mm Hg): 136 01-04-2019 21:23 BP Diastolic (mm Hg): 69 01-04-2019 21:23 PAST MEDICAL HISTORY ATTESTATION: I have reviewed and confirmed nurse's/medic's notes for patient's medications, allergies, medical history, and surgical history ALLERGIES/INTOLERANCES: Allergy Allergen: Augmentin Type: Drug Reaction: Rash Allergen: penicillin Type: Drug Reaction: Swelling/Edema Allergen: tramadol Type: Drug Reaction: Other Allergen: Vicodin Tuss Type: Drug Reaction: Other Allergen: magnesium citrate Type: Drug Reaction: Other HEALTH HISTORY: Medical History Name:Suicidal ideations Code:R45.851 Name:Evaluation by psychiatric service required Code:Z00.8 Name:Encounter for medical clearance for patient hold Code:Z00.8 OUTPATIENT MEDICATIONS: Home Medications Review Status for Reconciliation: N/A Med Status: Patient Currently Takes Medications Drug Name: prazosin 1 mg oral capsule Instructions: 1 cap(s) orally once (at bedtime) Drug Name: FLUoxetine 20 mg oral capsule Instructions: 1 cap(s) orally once a day Drug Name: risperiDONE 1 mg oral tablet Instructions: 1 tab(s) orally once (at bedtime) Drug Name: hydrOXYzine pamoate 25 mg oral capsule Instructions: 1 cap(s) orally every 6 hours, As needed, anxiety Drug Name: risperiDONE 1 mg oral tablet Instructions: 1 tab(s) orally once (at bedtime) Drug Name: hydrOXYzine pamoate 25 mg oral capsule Instructions: 1 cap(s) orally every 6 hours, As needed, anxiety Drug Name: FLUoxetine 20 mg oral capsule Instructions: 1 cap(s) orally once a day Drug Name: prazosin 1 mg oral capsule Instructions: 1 cap(s) orally once (at bedtime) Drug Name: traZODone 50 mg oral tablet Instructions: 1 tab(s) orally once (at bedtime), As needed, insomnia Drug Name: traZODone 50 mg oral tablet Instructions: 1 tab(s) orally once (at bedtime), As needed, insomnia Drug Name: Bactrim DS 800 mg-160 mg oral tablet Instructions: 1 tab(s) orally 2 times a day SIGNIFICANT EVENTS: Past Medical History Description:colitis Description:depression Description:anxiety Description:bipolar Description:MRSA Description:Drug abuse (heroin) Past Surgical History Description:wisdom Description:tonsils ROLL TABLE OPERATOR: Is : no(1) Is : no(1) REVIEW OF SYSTEMS All other systems reviewed and are negative PHYSICAL EXAM CONSTITUTIONAL: Well appearing, well nourished, awake, alert, oriented to person, place, time/situation HENMT: Airway patent. Throat has no vesicles, no oropharyngeal exudates and uvula is midline. FROM neck, no lymphadenopathy. EYES: Clear bilaterally, pupils equal, round and reactive to light. EOMI CARDIOVASCULAR: Normal rate, regular rhythm. Heart sounds S1, S2. No murmurs, rubs or gallops. no peripheral edema. distal pulses symmetric. RESPIRATORY: Breath sounds clear and equal bilaterally. GASTROINTESTINAL: Abdomen soft, non-distended, no rebound, no guarding. Bowel sounds normal in all 4 quadrants. NEUROLOGICAL: Alert and oriented, speech normal SKIN: Skin normal color for race, warm, dry and intact. 1 cm area of induration to left axilla with mild overlying erythema. no fluctuance felt on exam. area of induration inferior to chin with scant purulent discharge currently draining. no overlying erythema or signs of cellulitis. abscess of left buttock without overlying erythema or signs of cellulitis. no area of fluctuance on exam. RESULTS/VITAL SIGNS RESULTS: Recent Lab Results: I have reviewed these laboratory results: Complete Blood Count + Differential 04-Jan-2019 22:01:00 ResultValue White Blood Cell Count 15.4 H Red Blood Cell Count 4.03 HGB 11.3 L HCT 35.2 L MCV 87 MCHC 32.1 PLT 313 RDW-CV 14.2 Neutrophil % 76.6 Immature Granulocytes % 0.3 Lymphocyte % 13.2 Monocyte % 6.5 Eosinophil % 3.2 Basophil % 0.2 Neutrophil Count 11.78 H Lymphocyte Count 2.03 Monocyte Count 1.00 Eosinophil Count 0.49 Basophil Count 0.03 Comprehensive Metabolic Panel 04-Jan-2019 22:01:00 ResultValue Glucose, Serum 94 NA 133 L K 3.5 CL 98 Bicarbonate, Serum 28 Anion Gap, Serum 11 BUN 6 CREAT 0.68 GFR-Non >60 GFR- >60 Calcium, Serum 8.9 ALB 3.8 ALKP 60 T Pro 7.1 T Bili 0.7 Alanine Aminotransferase, Serum 8 Aspartate Transaminase, Serum 12 HCG, Serum 04-Jan-2019 22:01:00 ResultValue HCG, Serum NEGATIVE VITAL SIGNS: T PRBP SpO2O2(LPM) %FiO2 Method 04-Jan-2019 22:00:[id number] 100 04-Jan-2019 21:23:[id number]/69 99 room air, no respiratory support MEDICAL DECISION MAKING/ED COURSE MDM/ED COURSE: 28-year-old female presenting to the ED today with an abscess to the chin, left armpit and buttock 2 days. Abscess of chin is currently draining and shows no signs of cellulitis. Abscess to left axilla and left buttock with areas of induration however no area of fluctuance on exam and no signs of cellulitis. I discussed with the patient that she needs to apply warm compresses throughout the day. Due to history of MRSA and leukocytosis today we will give dose of IV clindamycin in the ED and send the patient home with clindamycin as well. I did review outpatient testing performed on 01/02 and she does have follow-up with her physician for these results. Rest of labs unremarkable today. Vital signs stable. I discussed diagnosis and treatment plan and the need for close follow-up with her PCP. I discussed warning signs to return to the ED and the patient expressed understanding and agreed with the plan of care today. Discussed Findings with: patient PROGRESS NOTES: Time: 04-Jan-2019 23:07 Progress Note: (I discussed the results and discharge plan with the patient and/or family/friend if present. I emphasized the importance of follow up with the physician I referred them to in the timeframe recommended. I explained reasons for the patient to return to the Emergency Department. Questions were addressed. The patient and/or family/friend expressed understanding.) CLINICAL IMPRESSION Diagnosis/Annotation: ED Dx Name:Abscess of axilla Code:L02.419 Dispostion: discharged Type: home ATTESTATION CRITICAL CARE TIME Is this a critically ill patient: no Electronic Signatures: Rachel Kauffman (PAC) (Signed 04-Jan-2019 23:09) Authored: Provider Note - ED v2 Last Updated: 04-Jan-2019 23:09 by Rachel Kauffman (PAC) References: 1. Data Referenced From Triage - ED 04-Jan-2019 21:23 Normal [facility] Risk Screen - Adult Emergenc yon 01-04-2019 Risk Screen - Adult Emergency Preferred Language: Preferred Language: Preferred Language for Discussing Health Care (patient/designee)Elsi dimas Advanced Directives: Advance Directive/DNRno Family Violence Adult: Abuse Screen: Are you or have you been threatened or abused physically, emotionally, or sexually by anyoneno Learning Assessment (Patient): Learning Assessment (Patient): Patient is Able to be Assessed for Learningyes Factors Influencing Readiness to Learnacuteness of illness Factors that Impact Ability to Learnnone Devices/Methods Used to Communicatenone Learning Preferencesskill demonstration Cultural Considerationsnone Developmental Considerationsnone Buddhism Considerationsnone Learning Assessment (Other Learner): Learning Assessment (Other Learner): Other learner availableno Pressure Injury/TB/Substance: Pressure Injury: Pressure Injury Present on Admissionno Do you have a coughno Substance Use Current or Former Historynever: e-Cigarette/Vaping, Alcohol YES: Cigarette/Tobacco, Street Drugs Smoking Statuscurrent every day smoker Drug Useoccasionally Street Drug/Medication/ Inhalant Use Additional Commentsheroin IV Admission Risk Screen: Significant IndicatorsComplete CAGE: CAGE: Is this an injured patient at a Trauma Center ([facility]/[place] /[place]): no Electronic Signatures: Apryl Martinez (DUNCAN) (Signed 04-Jan-2019 21:30) Authored: Preferred Language, Advanced Directives, Family Violence Adult, Learning Assessment (Patient), Learning Assessment (Other Learner), Pressure Injury/TB/Substance, CAGE Last Updated: 04-Jan-2019 21:30 by Apryl Martinez) Normal [facility] Triage - EDon 01-04-2019 Triage - ED Quick Triage: Are You no Have You Given In The Last 6 Weeksno Are You Currently Breastfeedingno Chart Review: CHIEF COMPLAINT CRYSTAL MACHUCA is a Female patient with a chief complaint of abscess ("I have several abscesses and my skin feels like it's on fire, I'm in pain everywhere. I have MRSA."). Onset of the Complaint: 30-Dec-2018 Triage Date/Time: 04-Jan-2019 21:23 Pain Rating (0-10): 10 = Severe Pain location: left armpit is the worst Vital Signs: Temperature: 99.3F ( 37.4C) taken temporal Blood Pressure: 136/69 Mean: Heart Rate: 98 Respiratory Rate: 15 Pulse Oximetry: 99% on room air, no respiratory support. Height: 5 feet 5.00 inches. 165.1 CM Weight: 190.0 pounds. Calculated 86.1 kg. (stated) Calculated BMI (kg/m2): 31.587 Calculated BSA (m2) 1.99 [place] Coma Scale: Best Eye Response: (E4) spontaneous Best Motor Response: (M6) obeys commands Best Verbal Response: (V5) oriented Kareen Score: 15 Cough lasting greater than 3 weeks: no Travel outside of [facility]: no Allergies: yes Last menstrual period: 14-Dec-2018 Patient has homicidal thoughts: no ROSEANN: 3V Symptoms Are POSITIVE For: lump, redness and discharge. Symptoms Are Negative For: abrasion, avulsion, bleeding, laceration, bruising, fever and swelling. Risk Screens Suicide Risk Screen In the Past Month: Have you wished you were or wished you could go to sleep and not wake up no In the Past Month: Have you had any actual thoughts of killing yourself no In Your Lifetime: Have you ever done anything, started to do anything, or prepared to do anything to end your life no Rodriguez Fall Scale Screening Has the patient fallen before (or is the patient in the ED as a result of a fall) has not had a fall Does the patient have an impaired gait does not have impaired gait Is the patient cognitively impaired not cognitively impaired PAIN Pain Scale Used: ANDRY Pain Assessment: Left: (axilla, back), aching and burning Pain Rating (0-10): 10 = Severe Pain Management Interventions: quiet environment facilitated Pain Management Plan and Pain Scale Review: patient/family verbalize understanding ARRIVAL INFORMATION Means of Arrival: Ambulatory Mode of Arrival: private vehicle Arrival From: home Accompanied By: self Language: Spoken Language Preferred: Spanish Reading Language Preferred: Spanish Intern Brand Requested: no modeling and simulation analyst was requested MDRO: History of MDRO: yes Organism: MRSA 2005 Present on Arrival: Device Present on Arrival to ED: no Pressure Ulcer Present on Arrival to ED: no PRIMARY ASSESSMENT CRYSTAL MACHUCA'feroz primary assessment is Within Normal Limits. The airway is open and patent. Breathing spontaneous and unlabored with clear breath sounds bilaterally. Circulation is normal with good peripheral pulses. Skin is warm and dry and color is normal for race. PAST MEDICAL HISTORY Immunization History: Last Known Tetanus Immunization: Less than 5 years TRAVEL HISTORY Travel Exposure History: NO travel to International locations in the past 30 days Past Medical History: Past Medical History Reviewedyes Drug abuse (heroin): Past Medical History, Active MRSA: Past Medical History, Active Electronic Signatures: Apryl Martinez (DUNCAN) (Signed 04-Jan-2019 21:31) Authored: Triage, Past Medical History Last Updated: 04-Jan-2019 21:31 by Apryl Martinez (DUNCAN) Normal [facility] HEPATITIS B CORE AB-TOTALon 01-03-2019 HEP. B CORE AB-TOTAL NONREACTIVE Normal NONREACTIVE [facility] Comment on above: Result Comment: Theresa ents receiving more than 5 mg/day of biotin may have interference in test results. A sample should be taken no sooner than eight hours after previous dose. Contact the testing laboratory for additional information. Performed By: #### A LC #### [address] [address] HEPATITIS B SURF ABon 2018 HEP B SURF AB > 1000.0 Normal <10 [facility] Comment on above: Result Comment: INTE RPRETIVE CRITERIA: <10 mIU/mL....NONREACTIVE >=10 mIU/mL...REACTIVE . Patients receiving more than 5 mg/day of biotin may have interference in test results. A sample should be taken no sooner than eight hours after previous dose. Contact the testing laboratory for additional information. Performed By: #### C BCDF #### [address] [address] HEPATITIS B SURFACE AGon HEP.B SURFACE AG NONREACTIVE Normal NONREACTIVE [facility] Comment on above: Result Comment: Theresa ents receiving more than 5 mg/day of biotin may have interference in test results. A sample should be taken no sooner than eight hours after previous dose. Contact the testing laboratory for additional information. Performed By: #### C BCDF #### [address] [address] HEPATITIS C ABon 01-03-2019 HEPATITIS C AB NON-REACTIVE Normal NONREACTIVE [facility] Comment on above: Result Comment: Theresa ents receiving more than 5 mg/day of biotin may have interference in test results. A sample should be taken no sooner than eight hours after previous dose. Contact the testing laboratory for additional information. Performed By: #### A LC #### [address] [address] SYPHILIS IGGon 01-03-2019 SYPHILIS IGG NON REACTIVE Normal NONREACTIVE [facility] Comment on above: Result Comment: Theresa ents receiving more than 5 mg/day of biotin may have interference in test results. A sample should be taken no sooner than eight hours after previous dose. Contact [phone] for additional information. Performed By: #### A LC #### [address] [address] CBC AND DIFFERENTIALon 01-02 % AUTOMATED IMMATURE GRAN 0.3 % Normal 0.0 - 0.9 [facility] Comment on above: Result Comment: Perc ent differential counts (%) should be interpreted in the context of the absolute cell counts (cells/L). Performed By: #### C BCDF #### [address] [address] Basophils (Bld) [#/Vol] 0.04 10*3/uL Normal 0.00 - 0.1 0 [facility] Comment on above: Performed By: #### C BCDF #### [address] [address] Basophils/100 WBC (Bld) 0.3 % Normal 0.0 - 2.0 [facility] Comment on above: Performed By: #### C BCDF #### [address] [address] Eosinophils (Bld) [#/Vol] 0.37 10*3/uL Normal 0.00 - 0.70 [facility] Comment on above: Performed By: #### C BCDF #### [address] [address] Eosinophils/100 WBC (Bld) 3.1 % Normal 0.0 - 6.0 [facility] Comment on above: Performed By: #### C BCDF #### [address] [address] Erythrocyte distribution width (RBC) [Ratio] 14.6 % High 11.5 - 14.5 [facility] Comment on above: Performed By: #### C BCDF #### [address] [address] Hematocrit (Bld) [Volume fraction] 36.6 % Normal 36.0 - 46.0 [facility] Comment on above: Performed By: #### C BCDF #### [address] [address] Hemoglobin (Bld) [Mass/Vol] 11.6 g/dL Low 12.0 - 16.0 [facility] Comment on above: Performed By: #### C BCDF #### [address] [address] Lymphocytes (Bld) [#/Vol] 2.61 10*3/uL Normal 1.20 - 4.80 [facility] Comment on above: Performed By: #### C BCDF #### [address] [address] Lymphocytes/100 WBC (Bld) 21.6 % Normal 13.0 - 44.0 [facility] Comment on above: Performed By: #### C BCDF #### [address] [address] MCHC (RBC) [Mass/Vol] 31.7 g/dL Low 32.0 - 36.0 [facility] Comment on above: Performed By: #### C BCDF #### [address] [address] MCV (RBC) [Entitic vol] 90 fL Normal 80 - 100 [facility] Comment on above: Performed By: #### C BCDF #### [address] [address] Monocytes (Bld) [#/Vol] 0.78 10*3/uL Normal 0.10 - 1.0 0 [facility] Comment on above: Performed By: #### C BCDF #### [address] [address] Monocytes/100 WBC (Bld) 6.5 % Normal 2.0 - 10.0 [facility] Comment on above: Performed By: #### C BCDF #### [address] [address] Neutrophils (Bld) [#/Vol] 8.22 10*3/uL High 1.20 - 7.70 [facility] Comment on above: Performed By: #### C BCDF #### [address] [address] Neutrophils/100 WBC (Bld) 68.2 % Normal 40.0 - 80.0 [facility] Comment on above: Performed By: #### C BCDF #### [address] [address] Platelets (Bld) [#/Vol] 327 10*3/uL Normal 150 - 450 [facility] Comment on above: Performed By: #### C BCDF #### [address] [address] RBC (Bld) [#/Vol] 4.08 x10E12/L Normal 4.00 - 5.20 [facility] Comment on above: Performed By: #### C BCDF #### [address] [address] WBC (Bld) [#/Vol] 12.1 10*3/uL High 4.4 - 11.3 [facility] Comment on above: Performed By: #### C BCDF #### [address] [address] HCG,URINEon 01-02-2019 Beta HCG ( test) Ql (U) Negative Normal Negative [facility] Comment on above: Performed By: #### C BCDF #### [address] [address] HEPATIC FUNCTION PANELon Albumin [Mass/Vol] 3.9 g/dL Normal 3.4 - 5.0 [facility] Comment on above: Performed By: #### C BCDF #### [address] [address] ALP [Catalytic activity/Vol] 59 U/L Normal 33 - 110 [facility] Comment on above: Performed By: #### C BCDF #### [address] [address] ALT [Catalytic activity/Vol] 8 U/L Normal 7 - 45 [facility] Comment on above: Result Comment: Theresa ents treated with Sulfasalazine may generate falsely decreased results for ALT. Performed By: #### C BCDF #### [address] [address] AST [Catalytic activity/Vol] 13 U/L Normal 9 - 39 [facility] Comment on above: Performed By: #### C BCDF #### [address] [address] Bilirubin [Mass/Vol] 0.4 mg/dL Normal 0.0 - 1.2 [facility] Comment on above: Performed By: #### C BCDF #### [address] [address] Bilirubin.direct [Mass/Vol] 0.1 mg/dL Normal 0.0 - 0.3 [facility] Comment on above: Performed By: #### C BCDF #### [address] [address] Protein [Mass/Vol] 7.1 g/dL Normal 6.4 - 8.2 [facility] Comment on above: Performed By: #### C BCDF #### [address] [address] HEPATITIS C ABon 01-02-2019 Lab Specimen Source Normal [facility] Comment on above: Performed By: #### A LC #### [address] [address] Performed By: #### C BCDF #### [address] [address] Provider Note - ED v2on 09-16 Provider Note - ED v2 Provider Note - ED v2: Chart Review: ED NOTES ED NOTES: Patient into the emergency department for evaluation of a boil to the right lower abdominal wall. Patient states that she noticed a bump there about 3 or 4 days ago. She states that it was draining some purulent drainage. It is right along her underwear line and that right lower quadrant. She subsequently came into the emergency department to be evaluated. No fevers or chills. No real abdominal pain. No other complaints. HISTORY OF PRESENTING ILLNESS CRYSTAL is a 28 year old Female and was seen by me at 07-Oct-2018 11:32 for a chief complaint of wound check (PT STATES WOUND IN GROIN) . Triage Information: Most recent Vital Sign Value Date Temp (F): 98.4 10-07-2018 11:32 Temp (C): 36.9 10-07-2018 11:32 Heart Rate (beats/min): 63 10-07-2018 11:32 Respirations (breaths/min): 18 10-07-2018 11:32 SpO2 (%): 96 10-07-2018 11:32 BP Systolic (mm Hg): 114 10-07-2018 11:32 BP Diastolic (mm Hg): 77 10-07-2018 11:32 PAST MEDICAL HISTORY ATTESTATION: I have reviewed and confirmed nurse's/medic's notes for patient's medications, allergies, medical history, and surgical history ALLERGIES/INTOLERANCES: Allergy Allergen: Augmentin Type: Drug Reaction: Rash Allergen: penicillin Type: Drug Reaction: Swelling/Edema Allergen: tramadol Type: Drug Reaction: Other Allergen: Vicodin Tuss Type: Drug Reaction: Other Allergen: magnesium citrate Type: Drug Reaction: Other HEALTH HISTORY: Medical History Name:Suicidal ideations Code:R45.851 Name:Evaluation by psychiatric service required Code:Z00.8 Name:Encounter for medical clearance for patient hold Code:Z00.8 OUTPATIENT MEDICATIONS: Home Medications Review Status for Reconciliation: Not Done Med Status: Patient Currently Takes Medications Drug Name: prazosin 1 mg oral capsule Instructions: 1 cap(s) orally once (at bedtime) Drug Name: FLUoxetine 20 mg oral capsule Instructions: 1 cap(s) orally once a day Drug Name: risperiDONE 1 mg oral tablet Instructions: 1 tab(s) orally once (at bedtime) Drug Name: hydrOXYzine pamoate 25 mg oral capsule Instructions: 1 cap(s) orally every 6 hours, As needed, anxiety Drug Name: risperiDONE 1 mg oral tablet Instructions: 1 tab(s) orally once (at bedtime) Drug Name: hydrOXYzine pamoate 25 mg oral capsule Instructions: 1 cap(s) orally every 6 hours, As needed, anxiety Drug Name: FLUoxetine 20 mg oral capsule Instructions: 1 cap(s) orally once a day Drug Name: prazosin 1 mg oral capsule Instructions: 1 cap(s) orally once (at bedtime) Drug Name: traZODone 50 mg oral tablet Instructions: 1 tab(s) orally once (at bedtime), As needed, insomnia Drug Name: traZODone 50 mg oral tablet Instructions: 1 tab(s) orally once (at bedtime), As needed, insomnia Drug Name: Bactrim DS 800 mg-160 mg oral tablet Instructions: 1 tab(s) orally 2 times a day SIGNIFICANT EVENTS: Past Medical History Description:colitis Description:depression Description:anxiety Description:bipolar Past Surgical History Description:wisdom Description:tonsils ROLL TABLE OPERATOR: Is : no(1) Is : no(1) REVIEW OF SYSTEMS All other systems reviewed and are negative PHYSICAL EXAM CONSTITUTIONAL: Appearance: well appearing Manner: appropriate for situation Mentation: awake and alert Mood: appropriate Nourishment: OBESE HENMT: Mouth: (Moist mucous membranes) MUSCULOSKELETAL: Musculoskeletal Exam: (Patient is seen weightbearing in the emergency department without any difficulties) NEUROLOGICAL: Level of Consciousness: alert and follows commands Speech: clear SKIN: Skin Color: (Patient with a very small 0.5 cm diameter abscess to the right lower quadrant at her underwear line . There is someTrace purulent discharge when I squeeze on it. Its already open. No substance was running sialitis. No necrotic skin changes or any areas of skin breakdown. No substantial surrounding induration.) PSYCHIATRIC: Level of Consciousness: alert and follows commands Mood: appropriate Affect: normal Speech: clear RESULTS/VITAL SIGNS VITAL SIGNS: T PRBP SpO2O2(LPM) %FiO2 Method 07-Oct-2018 11:32:[id number] 96 MEDICAL DECISION MAKING/ED COURSE MDM/ED COURSE: Patient arrives to the emergency department with stable vitals. She is not in any acute distress. She is mentating appropriately and is cooperative. To the right lower quadrant of her abdominal wall directly over the band of her underwear is a very small abscess measuring no more than 0.5 cm in diameter. Minimal localized running sialitis. No substance or induration. When I squeeze on the serious very small amount of purulent discharge is expressed. No need for incision and drainage at this point in time. This was thoroughly discussed with the patient. She is instructed to apply warm compresses to the area. I did go ahead and give her course of Bactrim. She has appropriate follow-up. She is given return instructions. Patient is discharged. CLINICAL IMPRESSION Diagnosis/Annotation: ED Dx Name:Abscess of abdominal wall Code:L02.211 Dispostion: discharged Type: home ATTESTATION CRITICAL CARE TIME Is this a critically ill patient: no Electronic Signatures: Tyler Graf) (Signed 07-Oct-2018 19:09) Authored: Provider Note - ED v2 Last Updated: 07-Oct-2018 19:09 by Tyler Graf) References: 1. Data Referenced From "Triage - ED" 10/07/2018 11:32 AM Normal [facility] Discharge Planning Noteon Discharge Planning Note Discharge Needs Assessment: Discharge Planning Assessment [id number] Discharge Planning Assessment Completed bySadia Moreland RN Readmission Within the Last 30 Daysno previous admission in last 30 days Primary Care PhysicianANDREW Carter Adult Information: Reason for Admission as Stated by Patientincreased depressed mood and self harm thoughts Primary Support Person During Hospitalizationgrandma Person to be Involved in Discharge Planningself Lives Withfriend Financial Concernsnone OB Information: Reason for admission this visitlate complication Lives Withfriend Patient Learning: Factors that Impact Ability to Learnnone(1) Other Learner: Learnermother(2) Factors that Impact Ability to Learnnone(2) Patient Learning - Peds: Factors Impact Ability to Learnnone Other Learner - Peds: Learnermother Factors that Impact Ability to Learnnone Other Factors: Substance Usestreet drugs/inhalants/medicati on abuse; tobacco Functional Screen: In the recent/past 2-4 weeks, patient or family have noticeda significant change in ability to chew or swallow, some lockjaw(3) Discharge Planning: Discharge Planning: Pt. to return home (she lives with her friend). Pt. stated that her grandma is supportive and she plans to follow up with counseling and med management at [place]. Pt. has denied any SI today and plans to comply with tx. Final Disposition/Discharge: Disposition/Discharge Information: Discharge/Transfer Information: Discharge/Transfer Date/[id number] 16:45 Discharged Accompanied Bystaff Discharge Modeambulatory Transportation Methodprivate car Valuables/Medications/Be longings Returnedyes Security Envelope Returnedna Final DispositionHome Electronic Signatures: Sadia Moreland (STAFF N) (Signed 22-Jul-2018 18:24) Authored: Discharge Planning Note, Final Disposition/Discharge Last Updated: 22-Jul-2018 18:24 by Sadia Moreland (STAFF N) References: 1. Data Referenced From 3. Plan of Care - Behavioral" 07/19/2018 2:00 PM 2. Data Referenced From Risk Screen - Adult Emergency" 07/18/2018 4:06 PM 3. Data Referenced From Admission Risk Screen - Adult" 07/19/2018 2:00 PM Normal [facility] Daily Progress Note - Psychi atryon 07-21-2018 Daily Progress Note -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 and adjust the medication, will admit to inpatient psych on hold Electronic Signatures: Milan Desir) (Signed 18-Jul-2018 22:45) Authored: Referral Information, History of Present Illness, Past Psychiatric History, Allergies, Medications Prior to Admission, Objective, Assessment/Recommendatio ns, Signature/Cosignature/At testation Last Updated: 18-Jul-2018 22:45 by Milan Desir) [facility] Consult-Medicineon 9 Consult-Medicine Service: Service: Medicine Consult: Consult requested by (Attending Name): Dr. Jacobo Reason: Medical management History of Present Illness: Admission Reason: Depression and Suicidal Ideation HPI: The patient is a 28 y/o female that is under the care of psychiatric services with Dr. Jacobo for depression and suicidal ideation. Upon examination the patient is A&Ox3. The patient denies chest pain, palpitations, SOB, n/v/d, fever, chills, recent illness, travel or trauma. She denies any significant PMH. Currently she states she is on her menstrual cycle and having occasional menstrual cramping with occasional nausea. She denies pain at this time. She complains of constipation with last bowel movement a few days ago. Normal bowel pattern per patient is 1-2 per week. She has no other complaints at this time medically and overall states in normal state of health. Current Labs reviewed. Plan below. Review Family/Social History and ROS: Constitutional: NEGATIVE: Fever, Chills, Anorexia, Weight Loss, Malaise Eyes: NEGATIVE: Blurry Vision, Drainage, Diploplia, Redness, Vision Loss/ Change ENMT: NEGATIVE: Nasal Discharge, Nasal Congestion, Ear Pain, Mouth Pain, Throat Pain; COMMENTS: LockJaw- left Respiratory: NEGATIVE: Dry Cough, Productive Cough, Hemoptysis, Wheezing, Shortness of Breath Cardiac: NEGATIVE: Chest Pain, Dyspnea on Exertion, Orthopnea, Palpitations, Syncope Gastrointestinal: NEGATIVE: Nausea, Vomiting, Diarrhea, Constipation, Abdominal Pain Genitourinary: POSITIVE: Hematuria; NEGATIVE: Discharge, Dysuria, Flank Pain, Frequency; COMMENTS: currently menstration Musculoskeletal: NEGATIVE: Decreased ROM, Pain, Swelling, Stiffness, Weakness Neurological: NEGATIVE: Dizziness, Confusion, Headache, Seizures, Syncope Psychiatric: POSITIVE: Anxiety, Sleep Changes; NEGATIVE: Mood Changes, Hallucinations, Suicidal Ideas Skin: NEGATIVE: Mass, Pain, Pruritus, Rash, Ulcer Endocrine: NEGATIVE: Heat Intolerance, Cold Intolerance, Sweat, Polyuria, Thirst Hematologic/Lymph: NEGATIVE: Anemia, Bruising, Easy Bleeding, Night Sweats, Petechiae Allergic/Immunologic: NEGATIVE: Anaphylaxis, Itchy/ Teary Eyes, Itching, Sneezing, Swelling All Other Systems: All other systems reviewed and are negative Allergies: Augmentin: Rash penicillin: Swelling/Edema tramadol: Other Vicodin Tuss: Other magnesium citrate: Other Objective: Objective Information: Pain reported at 07/19 2:48: 0 = None Pain with Activity reported at 07/18 15:15: 5 Pain at Rest reported at 07/18 15:15: 5 T PRBPSpO2 [id number]% Date/Time07/19 2: 2: 2: 2: 2:48 Range(36.3C - 36.6C ) (64 - 70 ) (16 - 18 ) (122 - 140 )/ (76 - 86 ) (100% - 100% ) Physical Exam: Constitutional: Well developed, awake/alert/oriented x3, no distress, alert and cooperative Eyes: PERRL, EOMI, clear sclera ENMT: mucous membranes moist, no apparent injury, no lesions seen Head/Neck: Neck supple, no apparent injury, thyroid without mass or tenderness, No JVD, trachea midline, no bruits Respiratory/Thorax: Patent airways, CTAB, normal breath sounds with good chest expansion, thorax symmetric Cardiovascular: Regular, rate and rhythm, no murmurs, 2+ equal pulses of the extremities, normal S 1and S 2 Gastrointestinal: Nondistended, soft, non-tender, no rebound tenderness or guarding, no masses palpable, no organomegaly, +BS, no bruits Genitourinary: deferred Musculoskeletal: ROM intact, no joint swelling, normal strength Extremities: normal extremities, no cyanosis edema, contusions or wounds, no clubbing Neurological: alert and oriented x3, intact senses, motor, response and reflexes, normal strength Breast: Deferred Psychological: Depressed mood Skin: Warm and dry, no lesions, no rashes Recent Lab Results: Results: I have reviewed these laboratory results: Drug Screen, Urine [Drawn 18-Jul-2018 16:30:00], Urine Test [Drawn 18-Jul-2018 16:30:00]. I have reviewed these laboratory results: Urinalysis [Drawn 18-Jul-2018 16:30:00], Urinalysis, Microscopic [Drawn 18-Jul-2018 16:30:00]. Assessment: 1). Depression and Suicidal ideation Managed per Psychiatry Continue close monitoring 2). Menstruation UA reviewed. Patient has no s/s of infection or urinary symptoms States uses NuvaRing for control and self inserts after menstruation is complete Motrin as needed for cramping and symptoms 3). Tobacco Use Smoking cessation offered Nicotine patch ordered 4). Drug Abuse Educated on risk Dog Behaviorist on board Patient has no medical complaints or concerns at this time. Will sign off. Thank you kindly for consulting. Please contact Hospitalist if needed. Electronic Signatures: Latha Shah ([employer]ICE [employer]IDENT [employer]) (Signed 19-Jul-2018 14:02) Authored: Service, History of Present Illness, Review Family/Social History and ROS, Allergies, Objective, Assessment/Recommendatio ns, Signature/Cosignature/At testation Jessy Benson) (Signed 19-Jul-2018 18:45) Co-Signer: Service, History of Present Illness, Review Family/Social History and ROS, Allergies, Objective, Assessment/Recommendatio ns, Signature/Cosignature/At testation Last Updated: 19-Jul-2018 18:45 by Jessy Benson) Normal [facility] DRUG SCREEN,URINEon 07-20-19 19 AMPHETAMINE SCREEN,U Canceled Normal [facility] Comment on above: Order Comment: TEST DRUG SCREEN,URINE WAS CANCELLED, 07/18/2018 22:42 DUPLICATE ORDER. Result Comment: CUTO FF LEVEL: 500 NG/ML Cross-reactivity has been reported with high concentrations of the following drugs: buproprion, chloroquine, chlorpromazine, ephedrine, mephentermine, fenfluramine, phentermine, phenylpropanolamine, pseudoephedrine, and propranolol. Performed By: #### D RUG3 ####[facility] [place] [address] BARBITURATES SCREEN,U Canceled Normal [facility] Comment on above: Order Comment: TEST DRUG SCREEN,URINE WAS CANCELLED, 07/18/2018 22:42 DUPLICATE ORDER. Result Comment: CUTO FF LEVEL: 200 NG/ML Performed By: #### D RUG3 ####[id number] [place] [address] BENZODIAZEPINES SCREEN,U Canceled Normal [facility] Comment on above: Order Comment: TEST DRUG SCREEN,URINE WAS CANCELLED, 07/18/2018 22:42 DUPLICATE ORDER. Result Comment: CUTO FF LEVEL: 200 NG/ML Performed By: #### D RUG3 ####[address] [place] [address] CANNABINOIDS SCREEN,U Canceled Normal [facility] Comment on above: Order Comment: TEST DRUG SCREEN,URINE WAS CANCELLED, 07/18/2018 22:42 DUPLICATE ORDER. Result Comment: CUTO FF LEVEL: 50 NG/ML Performed By: #### D RUG3 ####[address] [place] [address] COCAINE METABOLITE SCREEN,U Canceled Normal [facility] Comment on above: Order Comment: TEST DRUG SCREEN,URINE WAS CANCELLED, 07/18/2018 22:42 DUPLICATE ORDER. Result Comment: CUTO FF LEVEL: 150 NG/ML Performed By: #### D RUG3 ####[address] [address] DRUG SCREEN COMMENT Canceled Normal [facility] Comment on above: Order Comment: TEST DRUG SCREEN,URINE WAS CANCELLED, 07/18/2018 22:42 DUPLICATE ORDER. Result Comment: Drug screen results are presumptive and should not be used to assess compliance with prescribed medication. Contact the performing [facility] laboratory to add-on definitive confirmatory testing if clinically indicated. . Toxicology screening results are reported qualitatively. The concentration must be greater than or equal to the cutoff to be reported as positive. The concentration at which the screening test can detect an individual drug or metabolite varies. The absence of expected drug(s) and/or drug metabolite(s) may indicate non-compliance, inappropriate timing of specimen collection relative to drug administration, poor drug absorption, diluted/adulterated urine, or limitations of testing. For medical purposes only; not valid for forensic use. . Interpretive questions should be directed to the laboratory medical directors. Performed By: #### D RUG3 ####[address] [address] METHADONE SCREEN,U Canceled Normal [facility] Comment on above: Order Comment: TEST DRUG SCREEN,URINE WAS CANCELLED, 07/18/2018 22:42 DUPLICATE ORDER. Result Comment: CUTO FF LEVEL: 150 NG/ML The metabolite N-jmsbg-knqlyzckhnqcvy (LAAM) is not detected by this method in concentrations that would be found in the urine of patients on LAAM therapy. Performed By: #### D RUG3 ####[address] [address] OPIATES SCREEN,U Canceled Normal [facility] Comment on above: Order Comment: TEST DRUG SCREEN,URINE WAS CANCELLED, 07/18/2018 22:42 DUPLICATE ORDER. Result Comment: CUTO FF LEVEL: 300 NG/ML The opiate screen does not detect fentanyl, meperidine, or tramadol. Oxycodone is not consistently detected (refer to Oxycodone Screen, Urine result). Performed By: #### D RUG3 ####[address] [address] OXYCODONE SCREEN,U Canceled Normal [facility] Comment on above: Order Comment: TEST DRUG SCREEN,URINE WAS CANCELLED, 07/18/2018 22:42 DUPLICATE ORDER. Result Comment: CUTO FF LEVEL: 100 NG/ML This test will accurately detect both oxycodone and oxymorphone. Performed By: #### D RUG3 ####[address] [address] PCP SCREEN,U Canceled Normal [facility] Comment on above: Order Comment: TEST DRUG SCREEN,URINE WAS CANCELLED, 07/18/2018 22:42 DUPLICATE ORDER. Result Comment: CUTO FF LEVEL: 25 NG/ML Cross-reactivity has been reported with dextromethorphan. Performed By: #### D RUG3 ####[address] [address] History and Physical - Psych iatryon 07-19-2018 History and Physical - Psychiatry History Present Illness: Admission Reason: Depression and SI HPI: Patient is a 28 years old white female, bib mother for depression and SI, patient said she have period of sadness, anhedonia, hopelessness , helplessness, irritable mood. No misty. Patient said she have been taking Vraylar Vistaril and Klonopin for many years but off medications for 6 months since " cannot afford seeing MD or getting the Rx". Patient feels safe on the unit. She states that prozac worked well for her in the past. She also would like to start on Risperdal. She has anxiety PAST MEDICAL HISTORY: tonsillectomy, lymphocytic colitic (per patient) ROS: patient denies pain, denies nausea/vomiting, denies tremors/muscle stiffness, denies sedation, denies dizziness. Patient denies medical concerns. Patient denies side effects with psychiatric medications. She denies withdrawal MENTAL STATUS EXAMINATION: Alert, oriented x3. Appearance: casual Gait: in bed Motor Activity: no psychomotor agitation or retardation Speech: soft Language: normal Mood: depressed, anxious Affect: depressed, ancious Thought Process: concrete Thought Contents: anhedonic. Patient feels safe on the unit from hurting self here. No homicidal ideation. Perception: Patient denies having hallucinations. No delusions were elicited Fund of knowledge: fair Concentration fair Memory (short-term and long-term) was evaluated secondary to repetition and recall of information. Memory is intact Insight and Judgement: fair Psychiatric Review of Symptoms: Psychosis: negative Misty: negative Past Psychiatric History: Past Psychiatric History: several past psych admissions, 2 past suicide attempts Bipolar and anxiety disorder since age of [age] years old, In ER, Patient said she used to use several drugs including cannabis / alcohol / amphetamine and opoid but she is clean and sober for 6 months (tox positive for THC). Mother said patient was ok child until age of [age] years old when she started to use drugs, in age of 16 she was sent to a intermediate project manager placement [place] state [place] behavioral issues polysubstance dependence Past Psychiatric Meds/Treatments/ECT: vraylar, klonopin, seroquel Family History: Family History: Grandmother: Bipolar disorder Social History: Smoking Statusunable to assess Social History Single, 1 child. lives with boyfriend. 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 OARRS Review: OARRS checked: yes OARRS Comments: suboxone last filled in 05/2018 (2 days) Objective: Objective Information: T PRBPSpO2 [id number]% Date/Time07/19 2: 2: 2: 2: 2:48 Range(36.3C - 36.6C ) (64 - 70 ) (16 - 18 ) (122 - 140 )/ (76 - 86 ) (100% - 100% ) Medications: Medications: Continuous Medications -------- No continuous medications are active Scheduled Medications -------- 1. FLUoxetine: 20 mg Oral Daily 2. risperiDONE (RISPERDAL): 0.5 mg Oral 2 Times a Day PRN Medications -------- 1. Acetaminophen: 650 mg Oral Every 4 Hours 2. Benztropine: 1 mg Oral Every 4 Hours 3. Benztropine Injectable: 1 mg IntraMuscular 5 Times a Day 4. Haloperidol Lactate: 5 mg Oral Every 6 Hours 5. Haloperidol Lactate Injectable: 5 mg IntraMuscular Every 6 Hours 6. hydrOXYzine Pamoate (VISTARIL): 25 mg Oral Every 6 Hours 7. traZODone: 50 mg Oral At Bedtime Recent Lab Results: Results: I have reviewed these laboratory results: Thyroid Stimulating Hormone, Serum 19-Jul-2018 10:00:00 ResultValue Thyroid Stimulating Hormone, Serum 0.51 Drug Screen, Urine 18-Jul-2018 16:30:00 ResultValue Comments. SEE BELOW Drug screen results are presumptive and should not be used to assess compliance with prescribed medication. Contact the performing [facility] laboratory to add-on definitive confirmatory testing if clinically indicated. . Toxicology scre Amphetamine Screen, Urine PRESUMPTIVE NEGATIVE CUTOFF LEVEL: 500 NG/ML Cross-reactivity has been reported with high concentrations of the following drugs: buproprion, chloroquine, chlorpromazine, ephedrine, mephentermine, fenfluramine, phentermine, phenylpropanolamine Barbiturate Screen, Urine PRESUMPTIVE NEGATIVE PRESUMPTIVE NEGATIVE CUTOFF LEVEL: 200 NG/ML Benzodiazepine Screen, Urine PRESUMPTIVE NEGATIVE PRESUMPTIVE NEGATIVE CUTOFF LEVEL: 200 NG/ML Cannabinoid Screen, Urine PRESUMPTIVE POSITIVE PRESUMPTIVE POSITIVE CUTOFF LEVEL: 50 NG/ML A Cocaine Metabolite Screen, Urine PRESUMPTIVE NEGATIVE PRESUMPTIVE NEGATIVE CUTOFF LEVEL: 150 NG/ML Methadone Screen, Urine PRESUMPTIVE NEGATIVE CUTOFF LEVEL: 150 NG/ML The metabolite M-zidqa-nfhytgerzfphrz (LAAM) is not detected by this method in concentrations that would be found in the urine of patients on LAAM therapy. Opiate Screen, Urine PRESUMPTIVE NEGATIVE CUTOFF LEVEL: 300 NG/ML The opiate screen does not detect fentanyl, meperidine, or tramadol. Oxycodone is not consistently detected (refer to Oxycodone Screen, Urine result). Oxycodone Screen, Urine (item) PRESUMPTIVE NEGATIVE CUTOFF LEVEL: 100 NG/ML This test will accurately detect both oxycodone and oxymorphone. PCP Screen, Urine PRESUMPTIVE NEGATIVE CUTOFF LEVEL: 25 NG/ML Cross-reactivity has been reported with dextromethorphan. Urine Test 18-Jul-2018 16:30:00 ResultValue HCG, Urine NEGATIVE Complete Blood Count + Differential 18-Jul-2018 16:13:00 ResultValue White Blood Cell Count 10.5 Red Blood Cell Count 4.80 HGB 13.6 HCT 42.8 MCV 89 MCHC 31.8 L PLT 267 RDW-CV 15.5 H Neutrophil % 49.3 Immature Granulocytes % 0.3 Lymphocyte % 36.0 Monocyte % 7.8 Eosinophil % 6.0 Basophil % 0.6 Neutrophil Count 5.18 Lymphocyte Count 3.78 Monocyte Count 0.82 Eosinophil Count 0.63 Basophil Count 0.06 Comprehensive Metabolic Panel 18-Jul-2018 16:13:00 ResultValue Glucose, Serum 98 NA 138 K 3.9 CL 104 Bicarbonate, Serum 25 Anion Gap, Serum 13 BUN 11 CREAT 0.73 GFR-Non >60 GFR- >60 Calcium, Serum 9.9 ALB 4.3 ALKP 54 T Pro 7.6 T Bili 0.5 Alanine Aminotransferase, Serum 11 Aspartate Transaminase, Serum 14 Assessment and Plan: Problem List: Admitting Dx: Bipolar I disorder, most recent episode depressed, severe without psychotic features: Additional Dx: Anxiety: Cannabis dependence, abuse: Assessment: Informed consent: discussed with patient the risks, benefits and alternatives including FDA black box warning of treatment provided. Informed consent was given. Patient has capacity to participate in informed consent. Treatment Plan: Admit patient for evaluation and treatment Medication management Therapy as appropriate Encourage participation in group therapy Staff is to obtain collateral information Staff is to monitor patient for safety Encourage abstaining from alcohol and drugs See chart for details. start risperdal, prozac Signature/Cosignature/At testation: Attending Provider Inpatient Certification StatementI certify this patients need for inpatient care based on the above documentation including; the order to admit as inpatient, the anticipated length of stay, diagnosis, problem list and plan of care, and discharge plan. Electronic Signatures: Richard Jacobo) (Signed 19-Jul-2018 12:53) Authored: History of Present Illness, Psychiatric Review of Symptoms, Past Psychiatric History, Family History, Social History, Allergies, Medications Prior to Admission, Objective, Assessment and Plan, Signature/Cosignature/At testation Last Updated: 19-Jul-2018 12:53 by Richard Jacobo) Normal [facility] Patient Profile - Adult v2on 07-19-2018 Patient Profile - Adult v2 Profile: Initial Info: How to be AddressedEmily Spoken Language PreferredEnglish (1) Source of Informationpatient Are you currently using the Personal Electronic Health Record or classmarketsCAREno Are you interested in learning more about [facility] for the management of your healthdeclined Stated Reason for Admissionwas kicked out of [facility] and have been off my meds Limitations on Visitors/[place] Status[place] Patient Belongingsremains with patient Medications Brought to Hospitalyes Medication Dispositionlocked in unit medication cabinet History of MDROyes General Health: Weight in kg86.1 kilogram(s) Weight in sxa676 pound(s) Height in feet5 feet Height in inches5 inch(es) Height in cm165.1 centimeter(s) BMI (kg/m2)31.587 square meter Weight Methodstated Scale Typestanding Height Methodstated Blood Avoidance/Restrictionsno ne Normal Bedtime/Wake Time9-10pm/7-8am Nap Times/Lengthno Feel Rested Upon Awakeningyes Sleep Aids/Routinemedication RSP Based Care: How would you like to participate in your carebe honest with the doctor and participate in the stuff they have for me What is the number one concern for you during this hospitalizationmy mental health What is the most important thing we can do to support you during this hospitalizationget back on right meds Is there anything we need to know to best care for youno Recent Change in Mood/Behaviorwithdrawn or quiet; irritability; concentration Major Change/Loss/Stressor/Fea rsdenies Techniques to [place] with Loss/Stress/Changedivers ional activities; substance use; withdraw; play Hobbiesmusic; reading Substance: Current or Former Substance Use never: Alcohol(2) YES: Cigarette/Tobacco(2), Street Drugs Tobacco Cessation Education (provide if tobacco use within the last 12 mos)yes Health Mgmt: Symptoms/Conditions Managed at Homebehavioral health Are You Currently Breastfeedingno (3) Behavioral Health Symptoms/Conditionsbipol ar affective disorder Behavioral Management Strategiesabstinence from substances; coping strategies; education system; medication therapy Behavioral Health Managementnot managed Behavioral Health Symptoms/Conditions Commentkicked out of last program, pt. stated due to many pt's selling their meds and many were kicked out including her Barriers to Managing Healthstress of chronic illness Are You no (3) Relationship/Environ: Primary Source of Support/Comfortchild(saida ); parent Lives Withparent(s); dependent child(saida) Living Arrangementshouse Resource/Environmental Concernsnone [facility] caseworker Significant IndicatorsComplete Information Review: Allergies, Home Meds and Significant Events have been Reviewed and Verified with Patient/Familyyes ALLERGY, INTOLERANCE, ADVERSE EVENT: Allergies: Augmentin: Drug, Rash, Active penicillin: Drug, Swelling/Edema, Active tramadol: Drug, Other, Active Vicodin Tuss: Drug, Other, Active magnesium citrate: Drug, Other, Active Electronic Signatures: Teresa Hernandez (DUNCAN) (Signed 19-Jul-2018 19:37) Authored: Sadia Rapp (STAFF N) (Signed 19-Jul-2018 18:41) Authored: Will, Additional Information Last Updated: 19-Jul-2018 19:37 by Teresa Hernandez (DUNCAN) References: 1. Data Referenced From "Triage - ED" 07/18/2018 3:15 PM 2. Data Referenced From Risk Screen - Adult Emergency" 07/18/2018 4:06 PM 3. Data Referenced From Provider Note - ED v2 07/18/2018 3:49 PM Normal [facility] TSHon 07-19-2018 TSH Qn 0.51 m[IU]/L Normal 0.44 - 3.98 [facility] Comment on above: Result Comment: TSH testing is performed using different testing methodology at [facility] than at other [facility]. Direct result comparisons should only be made within the same method. Performed By: #### T SH2 ####[facility] [place] [address] ALCOHOLon 07-18-2018 Ethanol [Mass/Vol] mg/dL Normal [facility] Comment on above: Result Comment: FOR MEDICAL USE ONLY. . REF VALUES <10 Performed By: #### A LC #### [address] [address] CBC AND DIFFERENTIALon 07-18 % AUTOMATED IMMATURE GRAN 0.3 % Normal 0.0 - 0.9 [facility] Comment on above: Result Comment: Perc ent differential counts (%) should be interpreted in the context of the absolute cell counts (cells/L). Performed By: #### C BCDF #### [address] [address] Basophils (Bld) [#/Vol] 0.06 10*3/uL Normal 0.00 - 0.1 0 [facility] Comment on above: Performed By: #### C BCDF #### [address] [address] Basophils/100 WBC (Bld) 0.6 % Normal 0.0 - 2.0 [facility] Comment on above: Performed By: #### C BCDF #### [address] [address] Eosinophils (Bld) [#/Vol] 0.63 10*3/uL Normal 0.00 - 0.70 [facility] Comment on above: Performed By: #### C BCDF #### [address] [address] Eosinophils/100 WBC (Bld) 6.0 % Normal 0.0 - 6.0 [facility] Comment on above: Performed By: #### C BCDF #### [address] [address] Erythrocyte distribution width (RBC) [Ratio] 15.5 % High 11.5 - 14.5 [facility] Comment on above: Performed By: #### C BCDF #### [address] [address] Hematocrit (Bld) [Volume fraction] 42.8 % Normal 36.0 - 46.0 [facility] Comment on above: Performed By: #### C BCDF #### [address] [address] Hemoglobin (Bld) [Mass/Vol] 13.6 g/dL Normal 12.0 - 16.0 [facility] Comment on above: Performed By: #### C BCDF #### [address] [address] Lymphocytes (Bld) [#/Vol] 3.78 10*3/uL Normal 1.20 - 4.80 [facility] Comment on above: Performed By: #### C BCDF #### [address] [address] Lymphocytes/100 WBC (Bld) 36.0 % Normal 13.0 - 44.0 [facility] Comment on above: Performed By: #### C BCDF #### [address] [address] MCHC (RBC) [Mass/Vol] 31.8 g/dL Low 32.0 - 36.0 [facility] Comment on above: Performed By: #### C BCDF #### [address] [address] MCV (RBC) [Entitic vol] 89 fL Normal 80 - 100 [facility] Comment on above: Performed By: #### C BCDF #### [address] [address] Monocytes (Bld) [#/Vol] 0.82 10*3/uL Normal 0.10 - 1.0 0 [facility] Comment on above: Performed By: #### C BCDF #### [address] [address] Monocytes/100 WBC (Bld) 7.8 % Normal 2.0 - 10.0 [facility] Comment on above: Performed By: #### C BCDF #### [address] [address] Neutrophils (Bld) [#/Vol] 5.18 10*3/uL Normal 1.20 - 7.70 [facility] Comment on above: Performed By: #### C BCDF #### [address] [address] Neutrophils/100 WBC (Bld) 49.3 % Normal 40.0 - 80.0 [facility] Comment on above: Performed By: #### C BCDF #### [address] [address] Platelets (Bld) [#/Vol] 267 10*3/uL Normal 150 - 450 [facility] Comment on above: Performed By: #### C BCDF #### [address] [address] RBC (Bld) [#/Vol] 4.80 x10E12/L Normal 4.00 - 5.20 [facility] Comment on above: Performed By: #### C BCDF #### [address] [address] WBC (Bld) [#/Vol] 10.5 10*3/uL Normal 4.4 - 11.3 [facility] Comment on above: Performed By: #### C BCDF #### [address] [address] COMPREHENSIVE PANELon 2018 Albumin [Mass/Vol] 4.3 g/dL Normal 3.4 - 5.0 [facility] Comment on above: Performed By: #### C MP #### [address] [address] ALP [Catalytic activity/Vol] 54 U/L Normal 33 - 110 [facility] Comment on above: Performed By: #### C MP #### [address] [address] ALT [Catalytic activity/Vol] 11 U/L Normal 7 - 45 [facility] Comment on above: Result Comment: Theresa ents treated with Sulfasalazine may generate falsely decreased results for ALT. Performed By: #### C MP #### [address] [address] Anion gap [Moles/Vol] 13 mmol/L Normal 10 - 20 [facility] Comment on above: Performed By: #### C MP #### [address] [address] AST [Catalytic activity/Vol] 14 U/L Normal 9 - 39 [facility] Comment on above: Performed By: #### C MP #### [address] [address] Bilirubin [Mass/Vol] 0.5 mg/dL Normal 0.0 - 1.2 [facility] Comment on above: Performed By: #### C MP #### [address] [address] Calcium [Mass/Vol] 9.9 mg/dL Normal 8.6 - 10.3 [facility] Comment on above: Performed By: #### C MP #### [address] [address] Chloride [Moles/Vol] 104 mmol/L Normal 98 - 107 [facility] Comment on above: Performed By: #### C MP #### [address] [address] Creatinine [Mass/Vol] 0.73 mg/dL Normal 0.50 - 1.05 [facility] Comment on above: Performed By: #### C MP #### [address] [address] GFR- AM. >60 Normal >60 [facility] Comment on above: Result Comment: CALC ULATIONS OF ESTIMATED GFR ARE PERFORMED USING THE MDRD STUDY EQUATION FOR THE IDMS-TRACEABLE CREATININE METHODS. CLIN CHEM 2007;53:766-72 Performed By: #### C MP #### [address] [address] GFR-NON AM. >60 Normal >60 [facility] Comment on above: Performed By: #### C MP #### [address] [address] Glucose [Mass/Vol] 98 mg/dL Normal 74 - 99 [facility] Comment on above: Performed By: #### C MP #### [address] [address] HCO3 (Bld) [Moles/Vol] 25 mmol/L Normal 21 - 32 [facility] Comment on above: Performed By: #### C MP #### [address] [address] Potassium [Moles/Vol] 3.9 mmol/L Normal 3.5 - 5.3 [facility] Comment on above: Performed By: #### C MP #### [address] [address] Protein [Mass/Vol] 7.6 g/dL Normal 6.4 - 8.2 [facility] Comment on above: Performed By: #### C MP #### [address] [address] Sodium [Moles/Vol] 138 mmol/L Normal 136 - 145 [facility] Comment on above: Performed By: #### C MP #### [address] [address] Urea nitrogen [Mass/Vol] 11 mg/dL Normal 6 - 23 [facility] Comment on above: Performed By: #### C MP #### [address] [address] DRUG SCREEN,URINEon 07-19-19 19 AMPHETAMINE SCREEN,U Negative Normal NEGATIVE [facility] Comment on above: Result Comment: CUTO FF LEVEL: 500 NG/ML Cross-reactivity has been reported with high concentrations of the following drugs: buproprion, chloroquine, chlorpromazine, ephedrine, mephentermine, fenfluramine, phentermine, phenylpropanolamine, pseudoephedrine, and propranolol. Performed By: #### D RUG3 #### [address] [address] BARBITURATES SCREEN,U Negative Normal NEGATIVE [facility] Comment on above: Result Comment: CUTO FF LEVEL: 200 NG/ML Performed By: #### D RUG3 #### [address] [address] BENZODIAZEPINES SCREEN,U Negative Normal NEGATIVE [facility] Comment on above: Result Comment: CUTO FF LEVEL: 200 NG/ML Performed By: #### D RUG3 #### [address] [address] CANNABINOIDS SCREEN,U Positive Abnormal NEGATIVE [facility] Comment on above: Result Comment: CUTO FF LEVEL: 50 NG/ML Performed By: #### D RUG3 #### [address] [address] COCAINE METABOLITE SCREEN,U Negative Normal NEGATIVE [facility] Comment on above: Result Comment: CUTO FF LEVEL: 150 NG/ML Performed By: #### D RUG3 #### [address] [address] DRUG SCREEN COMMENT SEE BELOW Normal [facility] Comment on above: Result Comment: Drug screen results are presumptive and should not be used to assess compliance with prescribed medication. Contact the performing [facility] laboratory to add-on definitive confirmatory testing if clinically indicated. . Toxicology screening results are reported qualitatively. The concentration must be greater than or equal to the cutoff to be reported as positive. The concentration at which the screening test can detect an individual drug or metabolite varies. The absence of expected drug(s) and/or drug metabolite(s) may indicate non-compliance, inappropriate timing of specimen collection relative to drug administration, poor drug absorption, diluted/adulterated urine, or limitations of testing. For medical purposes only; not valid for forensic use. . Interpretive questions should be directed to the laboratory medical directors. Performed By: #### D RUG3 #### [address] [address] METHADONE SCREEN,U Negative Normal NEGATIVE [facility] Comment on above: Result Comment: CUTO FF LEVEL: 150 NG/ML The metabolite F-rfkzp-pfvzpjocbopiao (LAAM) is not detected by this method in concentrations that would be found in the urine of patients on LAAM therapy. Performed By: #### D RUG3 #### [address] [address] OPIATES SCREEN,U Negative Normal NEGATIVE [facility] Comment on above: Result Comment: CUTO FF LEVEL: 300 NG/ML The opiate screen does not detect fentanyl, meperidine, or tramadol. Oxycodone is not consistently detected (refer to Oxycodone Screen, Urine result). Performed By: #### D RUG3 #### [address] [address] OXYCODONE SCREEN,U Negative Normal NEGATIVE [facility] Comment on above: Result Comment: CUTO FF LEVEL: 100 NG/ML This test will accurately detect both oxycodone and oxymorphone. Performed By: #### D RUG3 #### [address] [address] PCP SCREEN,U Negative Normal NEGATIVE [facility] Comment on above: Result Comment: CUTO FF LEVEL: 25 NG/ML Cross-reactivity has been reported with dextromethorphan. Performed By: #### D RUG3 #### [address] [address] HCG,URINEon 07-18-2018 Beta HCG ( test) Ql (U) Negative Normal Negative [facility] Comment on above: Performed By: #### H CGU #### [address] [address] Provider Note - ED Care Soto sitionon 07-18-2018 Provider Note - ED Care Transition ED Care Transition: Chart Review: MEDICAL DECISION MAKING/ED COURSE MDM/ED COURSE: Special Observations: tolerates fluids PROGRESS NOTES: Time: 19-Jul-2018 01:59 Progress Note: condition unchanged (patient is stablebeing admitted by Dr. Donaldson for depression and suicidal ideations.) CLINICAL IMPRESSION Diagnosis/Annotation: ED Dx Name:Depression Code:F32.9 Dispostion: hospitalized Admit to: [facility]. Admitting Considerations: Condition on Disposition: stable ATTESTATION CRITICAL CARE TIME Is this a critically ill patient: no Electronic Signatures: Israel Blanco) (Signed 19-Jul-2018 02:04) Authored: ED Care Transition Last Updated: 19-Jul-2018 02:04 by Israel Blanco) [facility] Provider Note - ED v2on Provider Note - ED v2 Provider Note - ED v2: Chart Review: HISTORY OF PRESENTING ILLNESS CRYSTAL is a 28 year old Female and was seen by me at 18-Jul-2018 15:36 for a chief complaint of crisis evaluation (;patient reports sometimes she is suicidal) . The historian is the patient. Triage Information: Most recent Vital Sign Value Date Temp (F): 97.7 07-18-2018 15:15 Temp (C): 36.5 07-18-2018 15:15 Heart Rate (beats/min): 67 07-18-2018 15:15 Respirations (breaths/min): 18 07-18-2018 15:15 SpO2 (%): 100 07-18-2018 15:15 BP Systolic (mm Hg): 140 07-18-2018 15:15 BP Diastolic (mm Hg): 76 07-18-2018 15:15 Presenting Symptoms: depression and suicidal thoughts.Context is (Patient has a Hx of depression and drug abuse. She has been off her medication for the last few months. She has been having suicidal thoughts for the last 2 weeks.). Duration: 2 week(s). Timing is gradual onset and worsening. There are no modifying factors. Pertinent History: (depression). PAST MEDICAL HISTORY ATTESTATION: I have reviewed and confirmed nurse's/medic's notes for patient's medications, allergies, medical history, and surgical history ALLERGIES/INTOLERANCES: Allergy Allergen: Augmentin Type: Drug Reaction: Rash Allergen: penicillin Type: Drug Reaction: Swelling/Edema Allergen: tramadol Type: Drug Reaction: Other Allergen: Vicodin Tuss Type: Drug Reaction: Other Allergen: magnesium citrate Type: Drug Reaction: Other HEALTH HISTORY: No documented data. 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 EYES: Clear bilaterally, pupils equal, round and reactive to light. CARDIOVASCULAR: Normal rate, regular rhythm. Heart sounds S1, S2. No murmurs, rubs or gallops. PMI non-displaced. RESPIRATORY: Breath sounds clear and equal bilaterally. GASTROINTESTINAL: Abdomen soft, non-distended, no rebound, no guarding. Bowel sounds normal in all 4 quadrants. NEUROLOGICAL: Alert and oriented, no focal deficits, no motor or sensory deficits. SKIN: Skin normal color for race, warm, dry and intact. No evidence of trauma. PSYCHIATRIC: Alert and oriented to person, place, time/situation. patient is sad appearing. States she has had suicidal thoughts. RESULTS/VITAL SIGNS EKG INTERPRETATION: EKG Date/Time: 18-Jul-2018 17:12 Rate: 56 Interpretation: abnormal EKG Abnormal Rhythm: sinus arrhythmia and sinus bradycardia Acute or Evolving HI: no [place]: normal [place] Wave: normal MEDICAL DECISION MAKING/ED COURSE MDM/ED COURSE: Patient medically cleared, to be evaluated by psychiatry CLINICAL IMPRESSION Diagnosis/Annotation: ED Dx Name:Depression Code:F32.9 Dispostion: handoff Signed Out to Incoming Provider: Bella Handoff Comments: Patient has been cleared medically and is awaiting psychiatric evaluation which is pending ATTESTATION Scribe Name: Peyman Mosquera Scribing on Behalf of: Malcolm Pugh MD ATTENDING SCRIBE ATTESTATION STATEMENT I, Malcolm Pugh MD, attests all medical record entries made by the scribe were under my direction and personally dictated by me. I have reviewed the chart and agree that the record accurately reflects my performance of the history, physical, and assessment plan. I have also personally directed, reviewed, and agree with disposition instructions. CRITICAL CARE TIME Is this a critically ill patient: no Electronic Signatures: MosqueraPeyman (Scribe) (Entered 18-Jul-2018 15:53) Entered: Provider Note - ED v2 Malcolm Pugh) (Signed 18-Jul-2018 18:40) Authored: Provider Note - ED v2 Last Updated: 18-Jul-2018 18:40 by Malcolm Pugh) References: 1. Data Referenced From "Triage - ED" 07/18/2018 3:15 PM Normal [facility] Risk Screen - Adult Emergenc yon 07-18-2018 Risk Screen - Adult Emergency Preferred Language: Preferred Language: Preferred Language for Discussing Health Care (patient/designee)Elsi dimas Advanced Directives: Advance Directive Medicalno Advance Directive Information Givenpatient/family declined Family Violence Adult: Abuse Screen: Are you or have you been threatened or abused physically, emotionally, or sexually by anyoneno Learning Assessment (Patient): Learning Assessment (Patient): Patient is Able to be Assessed for Learningyes Factors Influencing Readiness to Learninterest in learning Factors that Impact Ability to Learncognitive limitations, learning disabilities Devices/Methods Used to Communicatenone Learning Preferencesaudio Cultural Considerationsnone Developmental Considerationsnone Buddhism Considerationsnone Other Learnersmother Learning Assessment (Other Learner): Learning Assessment (Other Learner): Other learner availableyes... Learnermother Factors Influencing Readiness to Learnmotivation to learn Factors that Impact Ability to Learnnone Devices/Methods Used to Communicatenone Learning Preferencesaudio Cultural Considerationsnone Developmental Considerationsnone Buddhism Considerationsnone Fall Risk Adult: Falls Risk: Altered Mobilitynone Change in Mental Statusno Relevant Medical History / Diagnosisnone Fall Historynone Altered Eliminationno Medications that Might Alter: equilibrium, cognitive judgement or severity of injurynone Sensory Deficitno UNABLE or UNWILLING to Follow Directionsno Patient Identified as a Falls Riskno Provide Rationale not identified as Falls Riskno risk factors identified Pressure Injury/TB/Substance: Pressure Injury: Pressure Injury Present on Admissionno Do you have a coughno Substance Use Current or Former Historynever: e-Cigarette/Vaping, Alcohol, Street Drugs YES: Cigarette/Tobacco Smoking Statuscurrent every day smoker Admission Risk Screen: Significant IndicatorsComplete CAGE: CAGE: Is this an injured patient at a Trauma Center ([facility]/[place] /[place]): no Electronic Signatures: Jordana Higgins (STAFF N) (Signed 18-Jul-2018 16:08) Authored: Preferred Language, Advanced Directives, Family Violence Adult, Learning Assessment (Patient), Learning Assessment (Other Learner), Fall Risk Adult, Pressure Injury/TB/Substance, CAGE Last Updated: 18-Jul-2018 16:08 by Jordana Higgins (STAFF N) Normal [facility] Triage - EDon 07-18-2018 Triage - ED Quick Triage: The patient and/or guardian verbally acknowledges placement for services into the following (when Urgent Care Service hours are operating):emergency department Are You no Are You Currently Breastfeedingno Chart Review: CHIEF COMPLAINT CRYSTAL MACHUCA is a Female patient with a chief complaint of crisis evaluation (;patient reports sometimes she is suicidal). Onset of the Complaint: 18-Jul-2018 15:18 Triage Date/Time: 18-Jul-2018 15:15 Pain Rating (0-10): Rest: 5 Pain Rating (0-10): Activity: 5 Acceptable Pain Level (0-10): 0 Pain location: lower back and head. Vital Signs: Temperature: 97.7F ( 36.5C) taken forehead Blood Pressure: 140/76 Mean: 102 Heart Rate: 67 Respiratory Rate: 18 Pulse Oximetry: 100% on room air, no respiratory support. Height: 5 feet 5.00 inches. 165.1 CM Weight: 190.0 pounds. Calculated 86.1 kg. 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 Symptoms Are Negative For: agitated, anorexia, confusion, fatigue, hallucinations and withdrawn. [place] Suicide Suicide Risk Screen In the Past Month: Have you wished you were or wished you could go to sleep and not wake up yes In the Past Month: Have you had any actual thoughts of killing yourself yes In the Past Month: Have you been thinking about how you might do this yes In the Past Month: Have you had these thoughts and had some intention of acting on them yes In the Past Month: Have you started to work out or worked out the details of how to kill yourself Do you intend to carry out this plan yes In Your Lifetime: Have you ever done anything, started to do anything, or prepared to do anything to end your life yes Was this within the past 3 months yes Suicide Risk Interventions Low Suicide Risk Interventions: consider EPAT referral consult behavioral health resources will be given at discharge Moderate Suicide Risk Interventions: Interventions initiated: comfort care provided, items from room which may be used to harm self removed, patient placed in an easily observable room with curtain remaining open, patient placed in gown and wanded, provider notified, remaining risks identified and mitigated, therapeutic diversion offered (puzzles, games, journaling, TV blank box) elopement risk identified, family/visitor advised to maintain control of own personal belongings in room, frequent rounding with irregular checks at a minimum of every 15 minutes to assess psych safety performed (patient easily observed), home medication list collected and shared with provider, hourly behavioral assessment performed, patient placed in psych safe room, personal belongings secured, treatment plan based on risk factors developed and visitors limited when necessary and personal items screened High Suicide Risk Interventions: patient under constant observation at all times Items removed from room: bedside table/carts, bulletin board push pins and tasks, cleaning solutions/chemicals, coat hangers, gloves, IV poles, linen bin, loose cords (monitor cords, electric, tubing), otoscope, oxygen/oxygen canister, plastic bags (including trash bags), suction regulators, sharp or glass objects, sharps container, and scissors Remaining risks identified and mitigated: bed/stretcher PAIN Pain Scale Used: ANDRY Pain Rating (0-10): 0 = None Acceptable Pain Level (0-10): 0 Pain Management Plan and Pain Scale Review: patient/family verbalize understanding ARRIVAL INFORMATION Accompanied By: self Language: Spoken Language Preferred: Spanish Reading Language Preferred: Spanish Intern Brand Requested: no modeling and simulation analyst was requested MDRO: History of MDRO: no Present on Arrival: Device Present on Arrival to ED: no Pressure Ulcer Present on Arrival to ED: no PRIMARY ASSESSMENT CRYSTAL MACHUCA's primary assessment is Within Normal Limits. The airway is open and patent. Breathing spontaneous and unlabored with clear breath sounds bilaterally. Circulation is normal with good peripheral pulses. Skin is warm and dry and color is normal for race. PAST MEDICAL HISTORY Immunization History: Last Known Tetanus Immunization: Unknown TRAVEL HISTORY Travel Exposure History: NO travel to International locations in the past 30 days Past Medical History: Past Medical History Reviewedyes tonsils: Past Surgical History, Active wisdom: Past Surgical History, Active bipolar: Past Medical History, Active anxiety: Past Medical History, Active depression: Past Medical History, Active colitis: Past Medical History, Active Electronic Signatures: Jordana Higgins (STAFF N) (Signed 18-Jul-2018 17:09) Authored: Triage, Past Medical History Lexis Morales (RN) (Signed 18-Jul-2018 15:25) Authored: Triage Last Updated: 18-Jul-2018 17:09 by Jordana Higgins (STAFF N) Normal [facility] UA MICROSCOPICon 07-18-2018 HYALINE CAST 2+ /LPF Abnormal [facility] Comment on above: Performed By: #### U AMIC #### [address] [address] MUCUS 4+ /LPF Normal [facility] Comment on above: Performed By: #### U AMIC #### [address] [address] RBC 23 /HPF Abnormal 0-5 [facility] Comment on above: Performed By: #### U AMIC #### [address] [address] SQUAMOUS EPITH. CELLS 10 /HPF Normal [facility] Comment on above: Performed By: #### U AMIC #### [address] [address] WBC 18 /HPF Abnormal 0-5 [facility] Comment on above: Performed By: #### U AMIC #### [address] [address] URINALYSISon 07-18-2018 Appearance (U) Canceled Normal [facility] Comment on above: Order Comment: TEST URINALYSIS WAS CANCELLED, 07/18/2018 17:07 ?Cancel Reason: Duplicate order. Performed By: #### U A #### [address] [address] ASCORBIC ACID Canceled Normal [facility] Comment on above: Order Comment: TEST URINALYSIS WAS CANCELLED, 07/18/2018 17:07 ?Cancel Reason: Duplicate order. Result Comment: Conc entrations > = 20 mg/dL of ascorbic acid can be expected to cause strong interference in the reactions testing for glucose, nitrite and blood. It is recommended to discontinue Vitamin C administration and retest in 10 hours. Performed By: #### U A #### [address] [address] Bilirubin (U) [Mass/Vol] Canceled Normal [facility] Comment on above: Order Comment: TEST URINALYSIS WAS CANCELLED, 07/18/2018 17:07 ?Cancel Reason: Duplicate order. Performed By: #### U A #### [address] [place] [address] BLOOD Canceled Normal [facility] Comment on above: Order Comment: TEST URINALYSIS WAS CANCELLED, 07/18/2018 17:07 ?Cancel Reason: Duplicate order. Performed By: #### U A #### [address] [place] [address] Color (U) Canceled Normal [facility] Comment on above: Order Comment: TEST URINALYSIS WAS CANCELLED, 07/18/2018 17:07 ?Cancel Reason: Duplicate order. Performed By: #### U A #### [address] [place] [address] Glucose [Mass/Vol] Canceled Normal [facility] Comment on above: Order Comment: TEST URINALYSIS WAS CANCELLED, 07/18/2018 17:07 ?Cancel Reason: Duplicate order. Performed By: #### U A #### [address] [address] Ketones Ql (U) Canceled Normal [facility] Comment on above: Order Comment: TEST URINALYSIS WAS CANCELLED, 07/18/2018 17:07 ?Cancel Reason: Duplicate order. Performed By: #### U A #### [address] [address] Leukocyte esterase Test strip Ql (U) Canceled Normal [facility] Comment on above: Order Comment: TEST URINALYSIS WAS CANCELLED, 07/18/2018 17:07 ?Cancel Reason: Duplicate order. Performed By: #### U A #### [address] [address] Nitrite Ql (U) Canceled Normal [facility] Comment on above: Order Comment: TEST URINALYSIS WAS CANCELLED, 07/18/2018 17:07 ?Cancel Reason: Duplicate order. Performed By: #### U A #### [address] [address] pH (Bld) Canceled Normal [facility] Comment on above: Order Comment: TEST URINALYSIS WAS CANCELLED, 07/18/2018 17:07 ?Cancel Reason: Duplicate order. Performed By: #### U A #### [address] [address] Protein (U) [Mass/Vol] Canceled Normal [facility] Comment on above: Order Comment: TEST URINALYSIS WAS CANCELLED, 07/18/2018 17:07 ?Cancel Reason: Duplicate order. Performed By: #### U A #### [address] [address] Specific gravity (U) [Rel density] Canceled Normal [facility] Comment on above: Order Comment: TEST URINALYSIS WAS CANCELLED, 07/18/2018 17:07 ?Cancel Reason: Duplicate order. Performed By: #### U A #### [address] [address] Urobilinogen Qn (U) Canceled Normal [facility] Comment on above: Order Comment: TEST URINALYSIS WAS CANCELLED, 07/18/2018 17:07 ?Cancel Reason: Duplicate order. Performed By: #### U A #### [address] [address] Appearance (U) HAZY Normal CLEAR [facility] Comment on above: Performed By: #### U A #### [address] [address] Bilirubin (U) [Mass/Vol] Negative Normal NEGATIVE [facility] Comment on above: Performed By: #### U A #### [address] [address] BLOOD LARGE (3+) Abnormal NEGATIVE [facility] Comment on above: Performed By: #### U A #### [address] [address] Color (U) RIO Normal STRAW,YELLOW [facility] Comment on above: Performed By: #### U A #### [address] [address] Glucose [Mass/Vol] Negative Normal NEGATIVE [facility] Comment on above: Performed By: #### U A #### [address] [address] Ketones Ql (U) Negative Normal NEGATIVE [facility] Comment on above: Performed By: #### U A #### [address] [address] Leukocyte esterase Test strip Ql (U) TRACE Abnormal NEGATIVE [facility] Comment on above: Performed By: #### U A #### [address] [address] Nitrite Ql (U) Negative Normal NEGATIVE [facility] Comment on above: Performed By: #### U A #### [address] [address] pH (Bld) 6.0 Normal 5.0 - 8.0 [facility] Comment on above: Performed By: #### U A #### [address] [address] Protein (U) [Mass/Vol] 30 (1+) Abnormal NEGATIVE [facility] Comment on above: Performed By: #### U A #### [address] [address] Specific gravity (U) [Rel density] 1.027 Normal 1.005 - 1.035 [facility] Comment on above: Performed By: #### U A #### [address] [address] Urobilinogen Qn (U) 4.0 mg/dL High 0.0 - 1.9 [facility] Comment on above: Result Comment: SOME PIGMENTS AND MEDICATIONS MAY CAUSE A FALSE POSITIVE UROBILINOGEN Performed By: #### U A #### [address] [address] CBC With Differentialon 04-18 Basophils #/vol (Bld) 0.06 10*3/uL Normal 0.01-0.07 [facility] Comment on above: Performed By: #### 1 [id number] #### [address] [place] [address] Basophils/100 WBC (Bld) 0.5 % Normal 0.1-1.2 [facility] Comment on above: Performed By: #### 1 [id number] #### [address] [place] [address] Eosinophils #/vol (Bld) 0.54 10*3/uL High 0.04-0.50 [facility] Comment on above: Performed By: #### 1 [id number] #### [address] [place] [address] Eosinophils/100 WBC (Bld) 4.9 % Normal 0.0-8.1 [facility] Comment on above: Performed By: #### 1 [id number] #### [address] [place] [address] Erythrocyte distribution width Ratio (RBC) 14.7 % Normal 12.0-15.4 [facility] Comment on above: Performed By: #### 1 [id number] #### [address] [place] [address] Hematocrit Volume Fraction (Bld) 40.3 % Normal 36.5-46.6 [facility] Comment on above: Performed By: #### 1 [id number] #### [address] [place] [address] Hemoglobin mass conc (Bld) 12.9 g/dL Normal 11.8-15.3 [facility] Comment on above: Performed By: #### 1 [id number] #### [address] [place] [address] Imm Grans Absolute 0.04 10*3/uL Normal 0.00-0.21 [facility] Comment on above: Performed By: #### 1 864986 #### [address] [place] [address] Immature granulocytes #/vol (Bld) 0.4 % Normal [facility] Comment on above: Performed By: #### 1 [id number] #### [address] [address] Lymphocytes #/vol (Bld) 2.58 10*3/uL Normal 0.40-2.84 [facility] Comment on above: Performed By: #### 1 [id number] #### [address] [place] [address] Lymphocytes/100 WBC (Bld) 23.4 % Normal 15.7-50.5 [facility] Comment on above: Performed By: #### 1 723173 #### [address] [place] [address] MCH Entitic mass (RBC) 29.6 pg Normal 27.5-33.0 [facility] Comment on above: Performed By: #### 1 099757 #### [address] [place] [address] MCHC mass conc (RBC) 32.0 g/dL Normal 30.1-35.0 [facility] Comment on above: Performed By: #### 1 765213 #### [address] [place] [address] MCV Entitic volume (RBC) 92.4 fL Normal 85.4-100.0 [facility] Comment on above: Performed By: #### 1 [id number] #### [address] [place] [address] Monocytes #/vol (Bld) 0.91 10*3/uL High 0.25-0.83 [facility] Comment on above: Performed By: #### 1 287031 #### [address] [facility] [place] [address] Monocytes/100 WBC (Bld) 8.3 % Normal 4.8-12.7 [facility] Comment on above: Performed By: #### 1 [id number] #### [address] [facility] [place] [address] Neutrophils Absolute 6.88 10*3/uL High 1.95-6.85 [facility] Comment on above: Performed By: #### 1 [id number] #### [address] [facility] [place] [address] Neutrophils/100 WBC (Bld) 62.5 % Normal 36.8-73.2 [facility] Comment on above: Performed By: #### 1 [id number] #### [address] [facility] [place] [address] NRBC Absolute 0.00 10*3/uL Normal [facility] Comment on above: Performed By: #### 1 [id number] #### [address] [facility] [place] [address] NRBC Automated 0.0 /100{WBCs} Normal [facility] Comment on above: Performed By: #### 1 [id number] #### [address] [facility] [place] [address] Platelet mean volume Entitic volume (Bld) 10.9 fL Normal 9.9-12.1 [facility] Comment on above: Performed By: #### 1 [id number] #### [address] [facility] [place] [address] Platelets #/vol (Bld) 324 10*3/uL Normal 155-404 [facility] Comment on above: Performed By: #### 1 [id number] #### [address] [facility] [place] [address] RBC #/vol (Bld) 4.36 10*6/uL Normal 3.85-5.10 [facility] Comment on above: Performed By: #### 1 [id number] #### [address] [facility] [address] RDW SD 50.6 fL High 39.3-48.6 [facility] Comment on above: Performed By: #### 1 [id number] #### [address] [facility] [place] [address] WBC #/vol (Bld) 11.0 10*3/uL High 4.4-9.9 [facility] Comment on above: Performed By: #### 1 739517 #### [address] [place] [address] Comprehensive Metabolic Pane sil 04-30-2018 Albumin mass conc 4.0 g/dL Normal 3.4-5.0 [facility] Comment on above: Performed By: #### 1 800394 #### [address] [facility] [place] [address] Albumin/Globulin mass ratio 1.3 {ratio} Normal 0.9-2.4 [facility] Comment on above: Performed By: #### 1 658608 #### [address] [place] [address] ALP enzyme act/vol 70 U/L Normal 45-117 [facility] Comment on above: Performed By: #### 1 [id number] #### [address] [place] [address] ALT enzyme act/vol 9 U/L Normal 7-45 [facility] Comment on above: Performed By: #### 1 857109 #### [address] [facility] [place] [address] Anion gap molar conc 10 mmol/L Normal 10-20 [facility] Comment on above: Performed By: #### 1 [id number] #### [address] [facility] [place] [address] AST enzyme act/vol 16 U/L Normal 13-39 [facility] Comment on above: Performed By: #### 1 [id number] #### [address] [place] [address] Bilirubin mass conc 0.4 mg/dL Normal 0.0-1.2 [facility] Comment on above: Performed By: #### 1 437362 #### [address] [place] [address] Calcium mass conc 9.1 mg/dL Normal 8.6-10.3 [facility] Comment on above: Performed By: #### 1 077013 #### [address] [place] [address] Chloride molar conc 105 mmol/L Normal 98-107 [facility] Comment on above: Performed By: #### 1 186214 #### [address] [facility] [place] [address] Creatinine mass conc 0.70 mg/dL Normal 0.50-1.05 [facility] Comment on above: Performed By: #### 1 004644 #### [address] [place] [address] GFR/1.73 sq M.predicted MDRD vol rate/area mL/min/{1.73_m2} Normal [facility] Comment on above: Result Comment: Inte rpretation for Chronic Kidney Disease: Stages 1&2 >60 Healthy or potential kidney damage. Mild decrease of GFR. Stage 3 30-59 Moderate decrease of GFR. Stage 4 15-29 Severe decrease of GFR. Stage 5 <15 Kidney failure or on dialysis. Performed By: #### 1 245482 #### [address] [place] [address] Glucose mass conc 102 mg/dL High 70-100 [facility] Comment on above: Performed By: #### 1 [id number] #### [address] [place] [address] HCO3 molar conc (Bld) 28 mmol/L Normal 21-32 [facility] Comment on above: Performed By: #### 1 824839 #### [address] [place] [address] Potassium molar conc 3.5 mmol/L Normal 3.5-5.1 [facility] Comment on above: Performed By: #### 1 051881 #### [address] [facility] [place] [address] Protein mass conc 7.0 g/dL Normal 6.4-8.2 [facility] Comment on above: Performed By: #### 1 [id number] #### [address] [facility] [place] [address] Sodium molar conc 139 mmol/L Normal 136-145 [facility] Comment on above: Performed By: #### 1 [id number] #### [address] [place] [address] Urea nitrogen mass conc 6 mg/dL Normal 6-23 [facility] Comment on above: Performed By: #### 1 737361 #### [address] [place] [address] Urea nitrogen/Creatinine mass ratio 9 mg/mg Normal 5-25 [facility] Comment on above: Performed By: #### 1 [id number] #### [address] [place] [address] Culture, Blood Bacterialon 0 04-30-2018 Culture, Blood Bacterial BILL#: [id number] : 89 AGE: SEX: F SOURCE: Blood COLLECTED: 04/30/18 12:41 ANTIBIOTICS AT HETAL.: RECEIVED : 04/30/18 19:55 SITE: SAME SOURCE R E S U L T S BLOOD CULTURE, BACTERIAL FINAL 05/05/18 21:42 No Growth at 1 days No Growth at 2 days No Growth at 3 days No Growth at 4 days NO GROWTH - FINAL REPORT Normal [facility] Comment on above: Performed By: #### 1 [id number] #### [address] [place] [address] Culture, Blood Bacterial BILL#: [id number] : 89 AGE: SEX: F SOURCE: Blood COLLECTED: 04/30/18 12:05 ANTIBIOTICS AT HETAL.: RECEIVED : 04/30/18 19:57 SITE: SAME SOURCE R E S U L T S BLOOD CULTURE, BACTERIAL FINAL 05/05/18 21:42 No Growth at 1 days No Growth at 2 days No Growth at 3 days No Growth at 4 days NO GROWTH - FINAL REPORT Normal [facility] Comment on above: Performed By: #### 1 [id number] #### [address] [place] [address] Culture, Urine Bacterialon 0 04-30-2018 Culture, Urine Bacterial BILL#: [id number] : 89 AGE: SEX: F SOURCE: URINE COLLECTED: 04/30/18 13:17 ANTIBIOTICS AT HETAL.: RECEIVED : 04/30/18 19:50 SITE: Unspecified R E S U L T S URINE CULTURE,BACTERIAL FINAL 05/01/18 12:23 NO SIGNIFICANT GROWTH. Normal [facility] Comment on above: Performed By: #### U ARFX #### [address] [place] [address] KNEE 3 VIEWS LTon 04-30-2018 KNEE 3 VIEWS LT DATE OF EXAM: Apr 30 2018 1:50PM CLINICAL HISTORY/ Patient Name: CRYSTAL MACHUCA STUDY: KNEE 3 VIEWS LT; 04/30/2018 1:50 pm INDICATION: Non Trauma. COMPARISON: None. ACCESSION NUMBER(S): [id number] ORDERING CLINICIAN: RENETTA SHAVER FINDINGS: Left knee three views. Bony structures are unremarkable. Joint spaces maintained. No suprapatellar effusion. No fracture or dislocation. No radiographic evidence of osteomyelitis. CONCLUSION: IMPRESSION: Negative examination. Normal [facility] Lactic Acidon 04-30-2018 Lactate molar conc 1.60 mmol/L Normal 0.40-2.00 [facility] Comment on above: Performed By: #### 1 [id number] #### [address] [place] [address] , Urine POCon 04-30 HCG.beta subunit ( test) Ql (U) Negative Normal [facility] Comment on above: Performed By: #### 1 [id number] #### [address] [place] [address] Urinalysis with Reflex Cultu reon 04-30-2018 Appearance Nom (U) Clear Normal Clear [facility] Comment on above: Performed By: #### 1 [id number] #### [address] [place] [address] Ascorbic Acid Negative Normal Negative [facility] Comment on above: Performed By: #### 1 [id number] #### [address] [facility] [address] Automated Urine Microscopy Performed Normal [facility] Comment on above: Performed By: #### 1 [id number] #### [address] [facility] [address] Bilirubin mass conc Negative Normal Negative [facility] Comment on above: Performed By: #### 1 [id number] #### [address] [place] [address] Blood Large Abnormal Negative [facility] Comment on above: Performed By: #### 1 856648 #### [address] [place] [address] Color Nom (U) Straw Normal [facility] Comment on above: Performed By: #### 1 [id number] #### [address] [facility] [place] [address] Glucose mass conc Negative Normal Negative [facility] Comment on above: Performed By: #### 1 614144 #### [address] [facility] [address] Ketones Ql (U) Negative Normal Negative [facility] Comment on above: Performed By: #### 1 932963 #### [address] [facility] [place] [address] Leukocytes Esterase Trace Abnormal Negative [facility] Comment on above: Performed By: #### 1 783526 #### [address] [facility] [address] Nitrite Ql (U) Negative Normal Negative [facility] Comment on above: Performed By: #### 1 533508 #### [address] [facility] [place] [address] pH (Bld) 7.0 Normal 5.0-9.0 [facility] Comment on above: Performed By: #### 1 [id number] #### [address] [facility] [place] [address] Protein mass conc (U) Negative Normal Negative [facility] Comment on above: Performed By: #### 1 883461 #### [address] [facility] [address] RBC 3 /[HPF] Normal 0-3 [facility] Comment on above: Performed By: #### 1 332118 #### [address] [facility] [place] [address] Specific gravity Relative Density (U) 1.003 Normal 1.003-1.035 [facility] Comment on above: Performed By: #### 1 [id number] #### [address] [facility] [place] [address] Squamous Epithelial Cells 2 /[HPF] Normal 0-5 [facility] Comment on above: Performed By: #### 1 604202 #### [address] [facility] [address] Urobilinogen Qn (U) <2.0 Normal Negative [facility] Comment on above: Result Comment: Due to a manufacturing issue, low positive urobilinogen results may be falsely positive. Correlate with urine bilirubin and additional clinical/laboratory findings to assess the risk of hemolytic anemia or liver disease. If clinically indicated, repeat testing with an alternate method is available by contacting the laboratory within 24 hours. Performed By: #### 1 [id number] #### [address] [place] [address] WBC 2 /[HPF] Normal 0-5 [facility] [facility] Comment on above: Performed By: #### 1 [id number] #### [address] [place] [address] Culture, Urine Bacterialon 0 04-25-2018 Culture, Urine Bacterial BILL#: [id number] : 89 AGE: SEX: F AMBULATORY SOURCE: URINE COLLECTED: 04/25/18 15:21 ANTIBIOTICS AT HETAL.: RECEIVED : 04/25/18 21:50 SITE: Clean Catch R E S U L T S URINE CULTURE,BACTERIAL FINAL 04/26/18 14:15 NO SIGNIFICANT GROWTH. Normal [facility] Comment on above: Performed By: #### 1 [id number] #### [address] [place] [address] HIV-1,2 Combo Ag/Ab, W/Rfx t o Confirmon 04-25-2018 HIV 1-2 Combo Ag/Ab NON REACTIVE Normal NONREACTIVE [facility] Comment on above: Result Comment: HIV Ag/Ab screen is performed using the Siemens Advia Centaur HIV Ag/Ab Combo assay which detects the presence of HIV p24 antigen as well as antibodies to HIV-1 (Group M and O) and HIV-2. Hepatitis B Surface Antigeno n 04-25-2018 Hepatitis B Surface Antigen NONREACTIVE Normal NONREACTIVE [facility] Comment on above: Result Comment: Theresa ents receiving more than 5 mg/day of biotin may have interf in test results. A sample should be taken no sooner than eight after previous dose. Contact [phone] for additional infor Hepatitis C Antibody w/rfx t o Confirmon 04-25-2018 Hepatitis C Antibody NON-REACTIVE Normal NONREACTIVE [facility] Comment on above: Result Comment: Theresa ents receiving more than 5 mg/day of biotin may have interf in test results. A sample should be taken no sooner than eight after previous dose. Contact [phone] for additional infor Urinalysison 04-25-2018 Appearance Nom (U) Clear Normal Clear [facility] Comment on above: Performed By: #### 1 #### [place] [place] [address] Ascorbic Acid Negative Normal Negative [facility] Comment on above: Performed By: #### 1 #### [place] [place] [address] Automated Urine Microscopy Performed Normal [facility] Comment on above: Performed By: #### #### [address] [place] [address] Bacteria LM.HPF #/area (Urine sed) Occasional Normal None [facility] Comment on above: Performed By: #### 1 #### [address] [place] [address] Bilirubin mass conc Negative Normal Negative [facility] Comment on above: Performed By: #### 1 #### [address] [place] [address] Blood Negative Normal Negative [facility] Comment on above: Performed By: #### 1 #### [address] [place] [address] Color Nom (U) Yellow Normal [facility] Comment on above: Performed By: #### 1 #### [place] [address] [place] [address] Glucose mass conc Negative Normal Negative [facility] Comment on above: Performed By: #### 1 #### [place] [place] [address] Ketones Ql (U) Negative Normal Negative [facility] Comment on above: Performed By: #### #### [place] [address] [place] [address] Leukocytes Esterase Trace Abnormal Negative [facility] Comment on above: Performed By: #### 1 #### [place] [place] [address] Mucous Occasional Normal None [facility] Comment on above: Performed By: #### 1 #### [place] [address] [place] [address] Nitrite Ql (U) Negative Normal Negative [facility] Comment on above: Performed By: #### 1 #### [address] [facility] [place] [address] pH (Bld) 5.0 Normal 5.0-9.0 [facility] Comment on above: Performed By: #### 1 #### [address] [facility] [place] [address] Protein mass conc (U) Negative Normal Negative [facility] Comment on above: Performed By: #### 1 #### [address] [facility] [place] [address] RBC 2 /[HPF] Normal 0-3 [facility] Comment on above: Performed By: #### 1 #### [address] [facility] [place] [address] Specific gravity Relative Density (U) 1.008 Normal 1.003-1.035 [facility] Comment on above: Performed By: #### 1 #### [address] [facility] [place] [address] Squamous Epithelial Cells 3 /[HPF] Normal 0-5 [facility] Comment on above: Performed By: #### 1 #### [address] [facility] [place] [address] Urobilinogen Qn (U) <2.0 Normal Negative [facility] Comment on above: Result Comment: Due to a manufacturing issue, low positive urobilinogen results may be falsely positive. Correlate with urine bilirubin and additional clinical/laboratory findings to assess the risk of hemolytic anemia or liver disease. If clinically indicated, repeat testing with an alternate method is available by contacting the laboratory within 24 hours. Performed By: #### 1 #### [address] [facility] [place] [address] WBC 1 /[HPF] Normal 0-5 [facility] Comment on above: Performed By: #### 1 #### [address] [place] [address] Basic Metabolic Panelon 12-16 Anion gap molar conc 12 mmol/L Normal 10-20 [facility] Comment on above: Performed By: #### 1 #### [address] [place] [address] Calcium mass conc 8.9 mg/dL Normal 8.6-10.3 [facility] Comment on above: Performed By: #### 1 #### [address] [facility] [place] [address] Chloride molar conc 106 mmol/L Normal 98-107 [facility] Comment on above: Performed By: #### 1 #### [address] [facility] [place] [address] Creatinine mass conc 0.69 mg/dL Normal 0.50-1.05 [facility] Comment on above: Performed By: #### 1 #### [address] [facility] [place] [address] GFR/1.73 sq M.predicted MDRD vol rate/area mL/min/{1.73_m2} Normal [facility] Comment on above: Result Comment: Inte rpretation for Chronic Kidney Disease: Stages 1&2 >60 Healthy or potential kidney damage. Mild decrease of GFR. Stage 3 30-59 Moderate decrease of GFR. Stage 4 15-29 Severe decrease of GFR. Stage 5 <15 Kidney failure or on dialysis. Performed By: #### 1 #### [address] [facility] [place] [address] Glucose mass conc 97 mg/dL Normal 70-100 [facility] Comment on above: Performed By: #### 1 #### [address] [facility] [place] [address] HCO3 molar conc (Bld) 26 mmol/L Normal 21-32 [facility] Comment on above: Performed By: #### 1 #### [address] [facility] [place] [address] Potassium molar conc 4.2 mmol/L Normal 3.5-5.1 [facility] Comment on above: Performed By: #### 1 #### [address] [facility] [place] [address] Sodium molar conc 140 mmol/L Normal 136-145 [facility] Comment on above: Performed By: #### 1 #### [address] [facility] [place] [address] Urea nitrogen mass conc 5 mg/dL Low 6-23 [facility] Comment on above: Performed By: #### 1 #### [address] [place] [address] Urea nitrogen/Creatinine mass ratio 7 mg/mg Normal 5-25 [facility] Comment on above: Performed By: #### 1 #### [address] [place] [address] CBCon 01-01-2018 Erythrocyte distribution width Ratio (RBC) 15.5 % High 12.0-15.4 [facility] Comment on above: Performed By: #### 1 #### [address] [place] [address] Hematocrit Volume Fraction (Bld) 38.3 % Normal 36.5-46.6 [facility] Comment on above: Performed By: #### 1 #### [address] [place] [address] Hemoglobin mass conc (Bld) 12.1 g/dL Normal 11.8-15.3 [facility] Comment on above: Performed By: #### 1 #### [address] [place] [address] MCH Entitic mass (RBC) 28.6 pg Normal 27.5-33.0 [facility] Comment on above: Performed By: #### 1 #### [address] [place] [address] MCHC mass conc (RBC) 31.6 g/dL Normal 30.1-35.0 [facility] Comment on above: Performed By: #### 1 #### [address] [place] [address] MCV Entitic volume (RBC) 90.5 fL Normal 85.4-100.0 [facility] Comment on above: Performed By: #### 1 #### [address] [place] [address] NRBC Absolute 0.00 10*3/uL Normal [facility] Comment on above: Performed By: #### 1 #### [address] [facility] [place] [address] NRBC Automated 0.0 /100{WBCs} Normal [facility] Comment on above: Performed By: #### 1 #### [address] [place] [address] Platelet mean volume Entitic volume (Bld) 11.4 fL Normal 9.9-12.1 [facility] Comment on above: Performed By: #### 1 [id number] #### [address] [place] [address] Platelets #/vol (Bld) 232 10*3/uL Normal 155-404 [facility] Comment on above: Performed By: #### 1 [id number] #### [address] [place] [address] RBC #/vol (Bld) 4.23 10*6/uL Normal 3.85-5.10 [facility] Comment on above: Performed By: #### 1 [id number] #### [address] [place] [address] RDW SD 51.4 fL High 39.3-48.6 [facility] Comment on above: Performed By: #### 1 [id number] #### [address] [place] [address] WBC #/vol (Bld) 11.5 10*3/uL High 4.4-9.9 [facility] Comment on above: Performed By: #### 1 [id number] #### [address] [place] [address] CT MAXILLOFACIAL WITH CONTRA STon 01-01-2018 CT MAXILLOFACIAL WITH CONTRAST DATE OF EXAM: Dec 31 2017 10:40PM CLINICAL HISTORY/ Patient Name: CRYSTAL MACHUCA STUDY: CT MAXILLOFACIAL WITH CONTRAST 12/31/2017 10:40 pm INDICATION: for abscess right facial swelling of unknown etiology. COMPARISON: None. ACCESSION NUMBER(S): [id number] ORDERING CLINICIAN: ERAN STEVENS TECHNIQUE: Thin cut axial CT images through the facial bones were obtained following intravenous administration of 90 cc iodinated IV contrast, and reconstructed in the coronal and sagittal plane. FINDINGS: Orbits: The bony orbits are intact. The orbital contents are normal and bilaterally symmetric. Facial Bones: There is no displaced facial bone fracture. Mandible/Temporomandibul ar Joints: Visualized portions of mandible and bilateral temporomandibular joints are intact. Paranasal Sinuses/Mastoids: Mild pansinus mucosal thickening. No sinus air-fluid level is seen. Mastoid air cells are clear. Soft tissues: There is diffuse asymmetric right-sided facial soft tissue swelling and edema, most pronounced in the medial right periorbital and supraorbital region, where there is mild heterogeneous enhancement of the subcutaneous soft tissues about patches of ill-defined edema without well-defined rim enhancing fluid collection to suggest drainable abscess at this time. There is associated mild skin thickening. CONCLUSION: IMPRESSION: Asymmetric right facial soft tissue swelling and edema, most pronounced in the medial periorbital and supraorbital region with there is mild heterogeneous enhancement. Findings would be in keeping with cellulitis in the appropriate clinical context. No discrete rim enhancing fluid collection to suggest drainable abscess at this time. No evidence of orbital cellulitis. Normal [facility] Culture, Blood Bacterialon Culture, Blood Bacterial BILL#: [id number] : 89 AGE: SEX: F AMBULATORY SOURCE: Blood COLLECTED: 12/31/17 23:33 ANTIBIOTICS AT HETAL.: RECEIVED : 01/01/18 18:56 SITE: SAME SOURCE R E S U L T S BLOOD CULTURE, BACTERIAL FINAL 01/06/18 19:42 No Growth at 1 days No Growth at 2 days No Growth at 3 days No Growth at 4 days NO GROWTH - FINAL REPORT Normal [facility] Comment on above: Performed By: #### 1 [id number] #### [address] [address] CBC With Differentialon 12-16 Basophils #/vol (Bld) 0.02 10*3/uL Normal 0.01-0.07 [facility] Comment on above: Performed By: #### 2 [id number] #### [address] [place] [address] Basophils/100 WBC (Bld) 0.2 % Normal 0.1-1.2 [facility] Comment on above: Performed By: #### 2 [id number] #### [address] [place] [address] Eosinophils #/vol (Bld) 0.60 10*3/uL High 0.04-0.50 [facility] Comment on above: Performed By: #### 2 [id number] #### [place] [address] [place] [address] Eosinophils/100 WBC (Bld) 4.8 % Normal 0.0-8.1 [facility] Comment on above: Performed By: #### 2 [id number] #### [address] [place] [address] Erythrocyte distribution width Ratio (RBC) 15.2 % Normal 12.0-15.4 [facility] Comment on above: Performed By: #### 2 [id number] #### [address] [facility] [place] [address] Hematocrit Volume Fraction (Bld) 40.2 % Normal 36.5-46.6 [facility] Comment on above: Performed By: #### 2 [id number] #### [address] [facility] [place] [address] Hemoglobin mass conc (Bld) 12.7 g/dL Normal 11.8-15.3 [facility] Comment on above: Performed By: #### 2 [id number] #### [address] [place] [address] Imm Grans Absolute 0.03 10*3/uL Normal [facility] Comment on above: Performed By: #### 2 [id number] #### [address] [facility] [place] [address] Immature granulocytes #/vol (Bld) 0.2 % Normal [facility] Comment on above: Performed By: #### 2 [id number] #### [address] [place] [address] Lymphocytes #/vol (Bld) 3.00 10*3/uL High 0.40-2.84 [facility] Comment on above: Performed By: #### 2 [id number] #### [address] [facility] [place] [address] Lymphocytes/100 WBC (Bld) 23.9 % Normal 15.7-50.5 [facility] Comment on above: Performed By: #### 2 [id number] #### [address] [facility] [place] [address] MCH Entitic mass (RBC) 29.4 pg Normal 27.5-33.0 [facility] Comment on above: Performed By: #### 2 [id number] #### [address] [facility] [place] [address] MCHC mass conc (RBC) 31.6 g/dL Normal 30.1-35.0 [facility] Comment on above: Performed By: #### 2 [id number] #### [address] [facility] [place] [address] MCV Entitic volume (RBC) 93.1 fL Normal 85.4-100.0 [facility] Comment on above: Performed By: #### 2 [id number] #### [address] [facility] [place] [address] Monocytes #/vol (Bld) 1.14 10*3/uL High 0.25-0.83 [facility] Comment on above: Performed By: #### 2 [id number] #### [address] [facility] [place] [address] Monocytes/100 WBC (Bld) 9.1 % Normal 4.8-12.7 [facility] Comment on above: Performed By: #### 2 [id number] #### [address] [facility] [place] [address] Neutrophils Absolute 7.75 10*3/uL High 1.95-6.85 [facility] Comment on above: Performed By: #### 2 [id number] #### [address] [facility] [place] [address] Neutrophils/100 WBC (Bld) 61.8 % Normal 36.8-73.2 [facility] Comment on above: Performed By: #### 2 [id number] #### [address] [facility] [place] [address] Platelet mean volume Entitic volume (Bld) 10.9 fL Normal 9.9-12.1 [facility] Comment on above: Performed By: #### 2 [id number] #### [address] [facility] [place] [address] Platelets #/vol (Bld) 269 10*3/uL Normal 155-404 [facility] Comment on above: Performed By: #### 2 [id number] #### [address] [facility] [place] [address] RBC #/vol (Bld) 4.32 10*6/uL Normal 3.85-5.10 [facility] Comment on above: Performed By: #### 2 [id number] #### [address] [facility] [place] [address] RDW SD 53.1 fL High 39.3-48.6 [facility] Comment on above: Performed By: #### 2 [id number] #### [address] [facility] [place] [address] WBC #/vol (Bld) 12.5 10*3/uL High 4.4-9.9 [facility] Comment on above: Performed By: #### 2 [id number] #### [address] [facility] [place] [address] Comprehensive Metabolic Pane sil 12-31-2017 Albumin mass conc 3.7 g/dL Normal 3.4-5.0 [facility] Comment on above: Performed By: #### 1 #### [address] [facility] [place] [address] Albumin/Globulin mass ratio 1.3 {ratio} Normal 0.9-2.4 [facility] Comment on above: Performed By: #### 1 #### [address] [facility] [place] [address] ALP enzyme act/vol 71 U/L Normal 45-117 [facility] Comment on above: Performed By: #### 1 #### [address] [facility] [place] [address] ALT enzyme act/vol 9 U/L Normal 7-45 [facility] Comment on above: Performed By: #### 1 #### [address] [facility] [address] Anion gap molar conc 12 mmol/L Normal 10-20 [facility] Comment on above: Performed By: #### 1 #### [address] [facility] [place] [address] AST enzyme act/vol 17 U/L Normal 13-39 [facility] Comment on above: Performed By: #### 1 #### [address] [facility] [place] [address] Bilirubin mass conc 0.3 mg/dL Normal 0.0-1.2 [facility] Comment on above: Performed By: #### 1 #### [address] [facility] [address] Calcium mass conc 9.0 mg/dL Normal 8.6-10.3 [facility] Comment on above: Performed By: #### 1 #### [address] [facility] [place] [address] Chloride molar conc 102 mmol/L Normal 98-107 [facility] Comment on above: Performed By: #### 1 #### [address] [facility] [address] Creatinine mass conc 0.61 mg/dL Normal 0.50-1.05 [facility] Comment on above: Performed By: #### 1 #### [address] [facility] [place] [address] GFR/1.73 sq M.predicted MDRD vol rate/area mL/min/{1.73_m2} Normal [facility] Comment on above: Result Comment: Inte rpretation for Chronic Kidney Disease: Stages 1&2 >60 Healthy or potential kidney damage. Mild decrease of GFR. Stage 3 30-59 Moderate decrease of GFR. Stage 4 15-29 Severe decrease of GFR. Stage 5 <15 Kidney failure or on dialysis. Performed By: #### 1 #### [address] [facility] [place] [address] Glucose mass conc 93 mg/dL Normal 70-100 [facility] Comment on above: Performed By: #### 1 #### [address] [facility] [place] [address] HCO3 molar conc (Bld) 27 mmol/L Normal 21-32 [facility] Comment on above: Performed By: #### #### [address] [facility] [place] [address] Potassium molar conc 4.1 mmol/L Normal 3.5-5.1 [facility] Comment on above: Performed By: #### 1 #### [address] [facility] [address] Protein mass conc 6.6 g/dL Normal 6.4-8.2 [facility] Comment on above: Performed By: #### 1 #### [address] [facility] [address] Sodium molar conc 137 mmol/L Normal 136-145 [facility] Comment on above: Performed By: #### 1 #### [address] [place] [address] Urea nitrogen mass conc 5 mg/dL Low 6-23 [facility] Comment on above: Performed By: #### 1 [id number] #### [address] [place] [address] Urea nitrogen/Creatinine mass ratio 8 mg/mg Normal 5-25 [facility] Comment on above: Performed By: #### 1 [id number] #### [address] [place] [address] Culture, Blood Bacterialon 1 Culture, Blood Bacterial BILL#: [id number] : 89 AGE: SEX: F AMBULATORY SOURCE: Blood COLLECTED: 12/31/17 20:08 ANTIBIOTICS AT HETAL.: RECEIVED : 12/31/17 22:56 SITE: SAME SOURCE R E S U L T S BLOOD CULTURE, BACTERIAL FINAL 01/05/18 23:42 No Growth at 1 days No Growth at 2 days No Growth at 3 days No Growth at 4 days NO GROWTH - FINAL REPORT Normal [facility] Comment on above: Performed By: #### 1 [id number] #### [address] [place] [address] Lactic Acidon 12-31-2017 Lactate molar conc 1.50 mmol/L Normal 0.40-2.00 [facility] Comment on above: Performed By: #### 1 [id number] #### [address] [place] [address] Test (Serum)on Test, Serum Negative Normal [facility] Comment on above: Performed By: #### 3 [id number] #### [address] [place] [address] ED Provider Noteon 8 HIM IP Note OR Shelter Monitor Normal [facility] Amylaseon 08-16-2017 Amylase enzyme act/vol 38 U/L Normal 12-94 [facility] Comment on above: Performed By: #### 1 [id number] #### [address] [place] [address] CBC With Differentialon Basophils #/vol (Bld) 0.04 10*3/uL Normal 0.01-0.07 [facility] Comment on above: Performed By: #### 2 [id number] #### [address] [place] [address] Basophils/100 WBC (Bld) 0.3 % Normal 0.1-1.2 [facility] Comment on above: Performed By: #### 2 [id number] #### [address] [place] [address] Eosinophils #/vol (Bld) 0.75 10*3/uL High 0.04-0.50 [facility] Comment on above: Performed By: #### 2 [id number] #### [address] [place] [address] Eosinophils/100 WBC (Bld) 5.5 % Normal 0.0-8.1 [facility] Comment on above: Performed By: #### 2 [id number] #### [address] [place] [address] Erythrocyte distribution width Ratio (RBC) 14.2 % Normal 12.0-15.4 [facility] Comment on above: Performed By: #### 2 [id number] #### [address] [place] [address] Hematocrit Volume Fraction (Bld) 37.4 % Normal 36.5-46.6 [facility] Comment on above: Performed By: #### 2 [id number] #### [address] [place] [address] Hemoglobin mass conc (Bld) 12.7 g/dL Normal 11.8-15.3 [facility] Comment on above: Performed By: #### 2 [id number] #### [address] [place] [address] Imm Grans Absolute 0.05 10*3/uL Normal [facility] Comment on above: Performed By: #### 2 [id number] #### [address] [place] [address] Immature granulocytes #/vol (Bld) 0.4 % Normal [facility] Comment on above: Performed By: #### 2 [id number] #### [address] [place] [address] Lymphocytes #/vol (Bld) 4.30 10*3/uL High 0.40-2.84 [facility] Comment on above: Performed By: #### 2 [id number] #### [address] [place] [address] Lymphocytes/100 WBC (Bld) 31.3 % Normal 15.7-50.5 [facility] Comment on above: Performed By: #### 2 [id number] #### [address] [place] [address] MCH Entitic mass (RBC) 29.7 pg Normal 27.5-33.0 [facility] Comment on above: Performed By: #### 2 [id number] #### [address] [place] [address] MCHC mass conc (RBC) 34.0 g/dL Normal 30.1-35.0 [facility] Comment on above: Performed By: #### 2 [id number] #### [address] [place] [address] MCV Entitic volume (RBC) 87.6 fL Normal 85.4-100.0 [facility] Comment on above: Performed By: #### 2 [id number] #### [address] [place] [address] Monocytes #/vol (Bld) 1.00 10*3/uL High 0.25-0.83 [facility] Comment on above: Performed By: #### 2 [id number] #### [address] [place] [address] Monocytes/100 WBC (Bld) 7.3 % Normal 4.8-12.7 [facility] Comment on above: Performed By: #### 2 [id number] #### [address] [place] [address] Neutrophils Absolute 7.59 10*3/uL High 1.95-6.85 [facility] Comment on above: Performed By: #### 2 [id number] #### [address] [place] [address] Neutrophils/100 WBC (Bld) 55.2 % Normal 36.8-73.2 [facility] Comment on above: Performed By: #### 2 [id number] #### [address] [place] [address] Platelet mean volume Entitic volume (Bld) 12.3 fL High 9.9-12.1 [facility] Comment on above: Performed By: #### 2 [id number] #### [place] [address] [facility] [address] Platelets #/vol (Bld) 259 10*3/uL Normal 155-404 [facility] Comment on above: Performed By: #### 2 [id number] #### [place] [address] [facility] [place] [address] RBC #/vol (Bld) 4.27 10*6/uL Normal 3.85-5.10 [facility] Comment on above: Performed By: #### 2 [id number] #### [place] [address] [facility] [address] RDW SD 45.3 fL Normal 39.3-48.6 [facility] Comment on above: Performed By: #### 2 [id number] #### [place] [address] [facility] [address] WBC #/vol (Bld) 13.7 10*3/uL High 4.4-9.9 [facility] Comment on above: Performed By: #### 2 [id number] #### [place] [address] [facility] [address] Comprehensive Metabolic Pane [facility] 08-16-2017 Albumin mass conc 4.8 g/dL Normal 3.4-5.0 [facility] Comment on above: Performed By: #### 1 [id number] #### [place] [address] [facility] [address] Albumin/Globulin mass ratio 1.7 {ratio} Normal 0.9-2.4 [facility] Comment on above: Performed By: #### 1 [id number] #### [place] [address] [place] [address] ALP enzyme act/vol 54 U/L Normal 45-117 [facility] Comment on above: Performed By: #### 1 701283 #### [place] [address] [place] [address] ALT enzyme act/vol 20 U/L Normal 7-45 [facility] Comment on above: Performed By: #### 1 258553 #### [place] [address] [place] [address] Anion gap molar conc 12 mmol/L Normal 10-20 [facility] Comment on above: Performed By: #### 1 137293 #### [place] [address] [facility] [place] [address] AST enzyme act/vol 19 U/L Normal 13-39 [facility] Comment on above: Performed By: #### 1 036009 #### [place] [address] [facility] [place] [address] Bilirubin mass conc 0.4 mg/dL Normal 0.0-1.2 [facility] Comment on above: Performed By: #### 1 123381 #### [place] [address] [facility] [place] [address] Calcium mass conc 10.2 mg/dL Normal 8.6-10.3 [facility] Comment on above: Performed By: #### 1 346350 #### [place] [address] [facility] [place] [address] Chloride molar conc 103 mmol/L Normal 98-107 [facility] Comment on above: Performed By: #### 1 945592 #### [place] [address] [facility] [place] [address] Creatinine mass conc 0.70 mg/dL Normal 0.50-1.05 [facility] Comment on above: Performed By: #### 1 655808 #### [place] [address] [facility] [place] [address] GFR/1.73 sq M.predicted MDRD vol rate/area mL/min/{1.73_m2} Normal [facility] Comment on above: Result Comment: Inte rpretation for Chronic Kidney Disease: Stages 1&2 >60 Healthy or potential kidney damage. Mild decrease of GFR. Stage 3 30-59 Moderate decrease of GFR. Stage 4 15-29 Severe decrease of GFR. Stage 5 <15 Kidney failure or on dialysis. Performed By: #### 1 [id number] #### [place] [address] [facility] [place] [address] Glucose mass conc 79 mg/dL Normal 70-100 [facility] Comment on above: Performed By: #### 1 615943 #### [place] [address] [facility] [address] HCO3 molar conc (Bld) 24 mmol/L Normal 21-32 [facility] Comment on above: Performed By: #### 1 442491 #### [place] [address] [facility] [address] Potassium molar conc 3.5 mmol/L Normal 3.5-5.1 [facility] Comment on above: Performed By: #### 1 155378 #### [place] [address] [place] [address] Protein mass conc 7.6 g/dL Normal 6.4-8.2 [facility] Comment on above: Performed By: #### 1 775351 #### [place] [address] [facility] [place] [address] Sodium molar conc 135 mmol/L Low 136-145 [facility] Comment on above: Performed By: #### 1 012922 #### [place] [address] [facility] [place] [address] Urea nitrogen mass conc 11 mg/dL Normal 6-23 [facility] Comment on above: Performed By: #### 1 [id number] #### [place] [address] [facility] [place] [address] Urea nitrogen/Creatinine mass ratio 16 mg/mg Normal 5-25 [facility] Comment on above: Performed By: #### 1 514951 #### [place] [address] [place] [address] Culture, Urine Bacterialon 0 08-16-2017 Culture, Urine Bacterial BILL#: [id number] : 89 AGE: SEX: F SOURCE: COLLECTED: 08/16/17 18:41 ANTIBIOTICS AT HETAL.: RECEIVED : 08/17/17 17:48 SITE: SAME SOURCE R E S U L T S URINE CULTURE,BACTERIAL FINAL 08/18/17 16:44 NO GROWTH Normal [facility] Comment on above: Performed By: #### C XBUR #### [facility] [address] [place] [address] Lipaseon 08-16-2017 Lipase enzyme act/vol 16 U/L Normal 9-82 [facility] Comment on above: Performed By: #### 1 494392 #### [place] [address] [place] [address] PELVIC NON-OB FEMALE ECHOon 08-16-2017 PELVIC NON-OB FEMALE ECHO DATE OF EXAM: Aug 16 2017 8:47PM CLINICAL HISTORY/ Patient Name: CRYSTAL MACHUCA STUDY: US PELVIC/TV- NC; PELVIC NON-OB FEMALE ECHO; 08/16/2017 8:47 pm INDICATION: Pelvic pain. COMPARISON: None. ACCESSION NUMBER(S): [id number]; [id number] ORDERING CLINICIAN: EMMA CALDERON TECHNIQUE: Multiple multiplanar static titus scale, color and spectral waveform sonographic images of the pelvis were obtained. Transabdominal and endovaginal ultrasound was performed. FINDINGS: UTERUS: Retroverted uterus is normal in size. The uterus measures 9.8 x 4.1 x 6.4 cm. ENDOMETRIUM: Endometrial canal is dilated measuring up to 3 cm and contains heterogeneous material. There is no internal vascular flow.. RIGHT ADNEXA: The right ovary measures 3.2 x 2 x 3.3 cm and demonstrates normal flow. No gross right adnexal masses are seen, no hydrosalpinx. LEFT ADNEXA: The left ovary measures 3.6 x 2 x 2.3 cm and demonstrates normal flow. No gross left adnexal masses are seen, no hydrosalpinx. CUL DE SAC: No gross free fluid is seen in the pelvic cul-de-sac. CONCLUSION: IMPRESSION: Complex fluid distending the endometrium which may represent hemorrhagic products, pyometra/endometritis or retained products of conception. Normal [facility] US PELVIC/TV - NCon --20 18 US PELVIC/TV - NC DATE OF EXAM: Aug 16 2017 8:47PM CLINICAL HISTORY/ Patient Name: CRYSTAL MACHUCA STUDY: US PELVIC/TV- NC; PELVIC NON-OB FEMALE ECHO; 08/16/2017 8:47 pm INDICATION: Pelvic pain. COMPARISON: None. ACCESSION NUMBER(S): [id number]; [id number] ORDERING CLINICIAN: EMMA CALDERON TECHNIQUE: Multiple multiplanar static tiuts scale, color and spectral waveform sonographic images of the pelvis were obtained. Transabdominal and endovaginal ultrasound was performed. FINDINGS: UTERUS: Retroverted uterus is normal in size. The uterus measures 9.8 x 4.1 x 6.4 cm. ENDOMETRIUM: Endometrial canal is dilated measuring up to 3 cm and contains heterogeneous material. There is no internal vascular flow.. RIGHT ADNEXA: The right ovary measures 3.2 x 2 x 3.3 cm and demonstrates normal flow. No gross right adnexal masses are seen, no hydrosalpinx. LEFT ADNEXA: The left ovary measures 3.6 x 2 x 2.3 cm and demonstrates normal flow. No gross left adnexal masses are seen, no hydrosalpinx. CUL DE SAC: No gross free fluid is seen in the pelvic cul-de-sac. CONCLUSION: IMPRESSION: Complex fluid distending the endometrium which may represent hemorrhagic products, pyometra/endometritis or retained products of conception. Normal [facility] Urinalysis with Reflex Cultu reon 08-16-2017 Appearance Nom (U) Cloudy Normal Clear [facility] Comment on above: Performed By: #### U ARFX #### [place] [address] [facility] [place] [address] Bacteria LM.HPF #/area (Urine sed) Few Normal None [facility] Comment on above: Performed By: #### U ARFX #### [place] [address] [facility] [place] [address] Bilirubin mass conc Small Abnormal Negative [facility] Comment on above: Performed By: #### U ARFX #### [place] [address] [facility] [place] [address] Blood Negative Normal Negative [facility] Comment on above: Performed By: #### U ARFX #### [place] [address] [facility] [address] Color Nom (U) Rio Normal [facility] Comment on above: Performed By: #### U ARFX #### [place] [address] [facility] [address] Epithelial cells.squamous LM.HPF #/area (Urine sed) Moderate Normal Few [facility] Comment on above: Performed By: #### U ARFX #### [place] [address] [facility] [address] Glucose mass conc Negative Normal Negative [facility] Comment on above: Performed By: #### U ARFX #### [place] [address] [facility] [address] Ketones Ql (U) 5 mg/dL Abnormal Negative [facility] Comment on above: Performed By: #### U ARFX #### [place] [address] [facility] [place] [address] Leukocytes Esterase Trace Abnormal Negative [facility] Comment on above: Performed By: #### U ARFX #### [place] [address] [place] [address] Mucous Many Normal None [facility] Comment on above: Performed By: #### U ARFX #### [place] [address] [place] [address] Nitrite Ql (U) Negative Normal Negative [facility] Comment on above: Performed By: #### U ARFX #### [address] [address] [place] [address] pH (Bld) 5.0 Normal 5.0-9.0 [facility] Comment on above: Performed By: #### U ARFX #### [address] [address] [place] [address] Protein mass conc (U) 30 mg/dL Abnormal Negative [facility] Comment on above: Performed By: #### U ARFX #### [address] [address] [place] [address] Specific gravity Relative Density (U) 1.033 Normal 1.003-1.035 [facility] Comment on above: Performed By: #### U ARFX #### [place] [address] [place] [address] Urine Microscopic Performed Normal [facility] Comment on above: Performed By: #### U ARFX #### [address] [address] [place] [address] Urobilinogen Qn (U) >=4.0 Abnormal Negative [facility] Comment on above: Performed By: #### U ARFX #### [address] [place] [address] WBC #/vol (Bld) 0-4 Normal 0-5 [facility] Comment on above: Performed By: #### U ARFX #### [address] [place] [address] WBC Clumps Occasional Normal None [facility] Comment on above: Performed By: #### U ARFX #### [address] [place] [address] ED Physician Reporton 2017 ED Physician Report Patient: JULY MACHUCA Age: 26 years Sex: Female : 1990 Associated Diagnoses: Aphthous ulcer of mouth Author: VAHE LEI CNP Basic Information Time seen: Time Seen:VAHE LEI CNP / 04/05/2017 14:49. History source: Patient. Arrival mode: Private vehicle. History limitation: None. History of Present Illness 26-year-old female presents with small ulcerated lesion to the tip of the tongue present for approximately one week. Patient does report a slightly uncomfortable sensation below the tongue and to the roof of the mouth. No other lesions noted. Patient does have a history of canker sores and states this does look like prior canker sores. Patient does not report any other symptoms. No ulcers or lesions noted to any other site of the body. Patient has remained afebrile. The patient presents with oral lesion. The onset was 1 weeks ago. The course/duration of symptoms is constant. Type of injury: none. Location: tongue. The character of symptoms is pain and redness. The degree of pain is minimal. The exacerbating factor is none. The relieving factor is none. Risk factors consist of none. Prior episodes: none. Therapy today: none. Associated symptoms: none. Review of Systems Constitutional symptoms: Negative except as documented in HPI, no fever, no chills. Skin symptoms: Negative except as documented in HPI, No rash, Eye symptoms: Negative except as documented in HPI. ENMT symptoms: Negative except as documented in HPI, Mouth ulcer. Respiratory symptoms: Negative except as documented in HPI, no shortness of breath, no cough. Cardiovascular symptoms: Negative except as documented in HPI, no chest pain, no palpitations. Gastrointestinal symptoms: Negative except as documented in HPI, no abdominal pain, no nausea, no vomiting, no diarrhea, no constipation. Genitourinary symptoms: Negative except as documented in HPI. Musculoskeletal symptoms: Negative except as documented in HPI, No back pain, Psychiatric symptoms: Negative except as documented in HPI. Endocrine symptoms: Negative except as documented in HPI. Hematologic/Lymphatic symptoms: Negative except as documented in HPI. Allergy/immunologic symptoms: Negative except as documented in HPI. Neurologic symptoms Negative except as documented in HPI, no headache, no dizziness. Additional review of systems information: All other systems reviewed and otherwise negative. Health Status Allergies: Allergic Reactions (Selected)Severity Not DocumentedAugmentin- No reactions were documented.Penicillin- No reactions were documented.. Medications: (Selected) PrescriptionsPrescribedP ROzac 40 mg oral capsule: 40 mg = 1 caps, ORAL, DAILY, for 7 days, 7 caps, 0 Refill(s)lidocaine 2% mucous membrane solution: 1 chris, Topical, QID, for 3 days, PRN: as needed for mouth sore pain, 20 mL, 0 Refill(s)Documented MedicationsDocumentedPRO raghu 40 mg oral capsule: 40 mg = 1 caps, ORAL, DAILY, 30 caps, 0 Refill(s)Pepcid 20 mg oral tablet: 20 mg = 1 tabs, ORAL, BID, 180 tabs, 0 Refill(s)Singulair: ORAL, DAILY, 0 Refill(s)ZyPREXA 7.5 mg oral tablet: 7.5 mg = 1 tabs, ORAL, DAILY, 30 tabs, 0 Refill(s)mesalamine: TID, 0 Refill(s). Immunizations: Per nurse's notes. Past Medical/ Family/ Social History Medical history: No active or resolved past medical history items have been selected or recorded.. Surgical history: Tonsillectomy and Adenoidectomy. ([id number]).. Family history: Entire family history is negative.. Social history: Alcohol use: Denies, Tobacco use: Denies. Problem list: Active Problems (4)Bipolar affective Drug abuse Heroin abuse Lymphocytic colitis . Physical Examination Vital Signs Vital Signs 04/05/2017 14:53 EST Temperature Oral 36.4 degC NORMAL Peripheral Pulse Rate 82 bpm NORMAL Respiratory Rate 18 br/min NORMAL Systolic Blood Pressure 125 mmHg NORMAL Diastolic Blood Pressure 79 mmHg NORMAL SpO2 97 % NORMAL Height/Length Dosing 165.1 cm Weight Dosing 95.5 kg Body Mass Index Dosing 35 . Per nurse's notes. General: Alert, no acute distress. Skin: Warm, dry, pink, no rash. Head: Normocephalic, atraumatic. Neck: Supple, trachea midline. Eye: Vision grossly normal. Ears, nose, mouth and throat: No pharyngeal erythema or exudate, Mouth: discrete round ulcer lesion present to tip of tongue with slight erythematous rim. Cardiovascular: Regular rate and rhythm, No murmur, Normal peripheral perfusion. Respiratory: Lungs are clear to auscultation, respirations are non-labored, breath sounds are equal, Symmetrical chest wall expansion. Back: Nontender, Normal range of motion. Musculoskeletal: Normal ROM, normal strength, no tenderness, no swelling. Chest wall Psychiatric: Cooperative, appropriate mood & affect. Neurological Alert and oriented to person, place, time, and situation, No focal neurological deficit observed, normal sensory observed, normal motor observed, normal speech observed. Medical Decision Making Rationale: Patient's assessment and reported history is consistent with an ucomplicated aphthous ulcer. There is no further indication of a present underlying infection. No evidence of thrush. Patient has no other symptoms reported. Discussed with patient that this will likely resolve within 14 days of onset. Discussed oral hygiene and she may use the prescribed topical lidocaine as needed for discomfort. Discussed return indications and appropriate follow-up. Documents reviewed: Emergency department nurses' notes. Reexamination/ Reevaluation Notes: Discussed today's findings, in addition to providing specific details for the plan of care and counseling regarding the diagnosis and prognosis. Discussed the return indications and importance of follow-up. Questions are answered. Impression and Plan Diagnosis Aphthous ulcer of mouth ([id number] K12.0, Discharge, Medical) Plan Condition: Stable. Disposition: Discharged: to home. Prescriptions: Launch Meds List (Selected) PrescriptionsPrescribedl idocaine 2% mucous membrane solution: 1 chris, Topical, QID, for 3 days, PRN: as needed for mouth sore pain, 20 mL, 0 Refill(s). Patient was given the following educational materials: Canker Sores. Follow up with: JOIE SUAZO Within 3 to 5 days Use prescribed medication as needed.Return to ED if worse or any concerns.. Counseled: Patient, Regarding diagnosis, Regarding diagnostic results, Regarding treatment plan, Patient indicated understanding of instructions. Notes: Physician supervision and consultation was available in the Emergency Department at the time of this patient's independent midlevel provider evaluation. Quality monitoring of the care of this patient will occur. .Electronically Signed by: Richa LEI CNP 04/05/2017 15:33Electronically Co-Signed by: Jose PLUNKETT MD 04/05/2017 20:26 Normal [facility] ED Progress Noteon 8 ED Progress Note PAtient to ED w c/o sores in mouth. First ulcer was noted 1 week ago on the tip of the tongue. She now has sores on the roof of the mouth and behind teeth on the lower jaw.[id number] No acute distress noted. Discharge instructions and script given to patient. She verbalized understanding. No questions or concerns voiced at discharge. Discharged via ambulation. Normal [facility] AUTO DIFFon 04-02-2017 Basophils Auto #/vol (Bld) 0.06 x1000 Normal 0.00-0.20 [facility] Comment on above: Performed By: #### 1 97999, [id number], 440828, 337233, 841354 ####[facility] [address] [place] [address] Medical Director: Gerber Carter MD Basos % 0.7 % Normal [facility] Comment on above: Performed By: #### 1 43190, 9472151, 433599, 193085, 958686 ####[facility] [address] [place] [address]52[address] Medical Director: Gerber Carter MD Eos Count 0.42 x1000 Normal 0.00-0.50 [facility] Comment on above: Performed By: #### 1 80158, 6189669, 926018, 981665, 579475 ####[facility] [address] [place] [address] Medical Director: Gerber Carter MD Eosinophils/100 leukocytes 5.1 % Normal [facility] Comment on above: Performed By: #### 1 75040, 5958113, 695179, 554804, 219011 ####[facility] [address] [place] [address] Medical Director: Gerber Carter MD Lymphocytes 2.62 x1000 Normal 1.20-4.80 [facility] Comment on above: Performed By: #### 1 38323, 8968485, 544946, 597306, 048489 ####[facility] [address] [place] [address] Medical Director: Gerber Carter MD Lymphocytes/100 leukocytes 32.3 % Normal [facility] Comment on above: Performed By: #### 1 10110, 4420857, 818271, 006714, 158376 ####[facility] [address] [place] [address] Medical Director: Gerber Carter MD Kern Count 0.76 x1000 Normal 0.10-1.00 [facility] Comment on above: Performed By: #### 1 56522, 8181090, 197814, 630879, 801843 ####[facility] [address] [place] [address] Medical Director: Gerber Carter MD Monocytes/100 leukocytes 9.4 % Normal [facility] Comment on above: Performed By: #### 1 00316, 3158652, 715482, 403198, 322128 ####[facility] [address] [place] [address] Medical Director: Gerber Carter MD Neutrophils 4.26 x1000 Normal 1.40-8.80 [facility] Comment on above: Performed By: #### 1 86578, 8179974, 987065, 498026, 048443 ####[facility] [address] [place] [address] Medical Director: Gerber Carter MD Neutrophils/100 WBC Auto (Bld) 52.4 % Normal [facility] Comment on above: Performed By: #### 1 50403, 0246954, 780744, 378468, 760979 ####[facility] [address] [place] [address] Medical Director: Gerber Carter MD COMPMETAon 04-02-2017 Albumin/Globulin Ratio 0.9 {ratio} Normal [facility] Comment on above: Performed By: #### 1 17600, 8476630, 019702, 815151, 999366 ####[facility] [address] [place] [address] Medical Director: Gerber Carter MD BUN/Creatinine Ratio 12.8 mg/mg Normal [facility] Comment on above: Performed By: #### 1 14979, 8551737, 445950, 284845, 689658 ####[facility] [address] [place] [address] Medical Director: Gerber Carter MD eGFR (non-black) mL/min/{1.73_m2} Normal [facility] Comment on above: Result Comment: Non GFR CalcMedical judgement is necessary to interpret GFR. The calculated GFR may not accurately reflect renal status in patients >70 years, women, acutely ill hospitalized patients and patients with acute renal failure or known renal disease.Note:Creatinine clearance (not GFR) should be used for drug dosing. Performed By: #### 1 89154, 9690253, 022288, 765229, 536000 ####[facility] [address] [place] [address] Medical Director: Gerber Carter MD Result Comment: Afri can Bulgarian GFR Calc Globulin 3.9 g/dL Normal [facility] Comment on above: Performed By: #### 1 54632, 4696315, 685758, 651646, 424457 ####[facility] [address] [place] [address] Medical Director: Greber Carter MD Osmolality 275 mOsm/kg Normal 275-295 [facility] Comment on above: Performed By: #### 1 04873, 5179323, 587191, 756051, 182263 ####[facility] [address] [place] [address] Medical Director: Gerber Carter MD Albumin 3.4 g/dL Normal 3.4-5.0 [facility] Comment on above: Performed By: #### 1 83770, 1455446, 454002, 384423, 555248 ####[facility] [address] [place] [address] Medical Director: Gerber Carter MD Alk Phos 61 unit/L Normal 45-117 [facility] Comment on above: Performed By: #### 1 80297, 4200228, 359320, 017890, 017187 ####[facility] [address] [place] [address] Medical Director: Gerber Carter MD Bilirubin (total) 0.25 mg/dL Normal 0.20-1.00 [facility] Comment on above: Performed By: #### 1 32821, 5277571, 177068, 775662, 806362 ####[facility] [address] [place] [address] Medical Director: Gerber Carter MD Calcium 8.7 mg/dL Normal 8.5-10.5 [facility] Comment on above: Performed By: #### 1 83391, 4739967, 173450, 488536, 834491 ####[facility] [address] [place] [address] Medical Director: Gerber Carter MD Chloride 109 mmol/L Normal 100-109 [facility] Comment on above: Performed By: #### 1 85238, 6646743, 568867, 128632, 685787 ####[facility] [address] [place] [address] Medical Director: Gerber Carter MD CO2 23.0 mmol/L Normal 21.0-32.0 [facility] Comment on above: Performed By: #### 1 58118, 4767585, 720710, 974835, 311506 ####[facility] [address] [place] [address] Medical Director: Gerber Carter MD Creatinine 0.8 mg/dL Normal 0.6-1.0 [facility] Comment on above: Performed By: #### 1 75632, 5121857, 140266, 165725, 193887 ####[facility] [address] [place] [address] Medical Director: Gerber Carter MD Glucose mass conc 76 mg/dL Normal 72-100 [facility] Comment on above: Result Comment: Carmel puncture should occur prior to sulfasalazine administration due to the potential for falsely depressed results. Venipuncture should occur prior to sulfapyridine administration due to the potential falsely elevated results.Baseline assay values before administration of sulfasalazine and sulfapyridine therapy would not be affected. Performed By: #### 1 37679, 2495378, 132652, 616287, 780523 ####[facility] [address] [place] [address] Medical Director: Gerber Carter MD GOT 16 unit/L Normal 15-37 [facility] Comment on above: Result Comment: Resu lts may be increased due to hemolysis.Venipuncture should occur prior to sulfasalazine and/or sulfapyridine administration due to the potential for falsely depressed results.Baseline assay values before administration of sulfasalazine and sulfapyridine therapy would not be affected. Performed By: #### 1 81322, [id number], 239023, 735545, 534411 ####[facility] [address] [place] [id number] Medical Director: Gerber Carter MD GPT 15 unit/L Normal 13-56 [facility] Comment on above: Result Comment: Carmel puncture should occur prior to sulfasalazine and/or sulfapyridine administration due to the potential for falsely depressed results.Baseline assay values before administration of sulfasalazine and sulfapyridine therapy would not be affected. Performed By: #### 1 77933, 7382929, 179367, 457050, 348465 ####[facility] [address]rfxs[address] [place] [address] Medical Director: Gerber Carter MD Potassium molar conc 4.2 mmol/L Normal 3.5-5.[address] [facility] Comment on above: Result Comment: Resu lts may be increased due to hemolysis. Performed By: #### 1 06543, 5035314, 380208, 530766, 816105 ####[facility] [address]zdcevrn78546 [place] [address] Medical Director: Gerber Carter MD Protein 7.3 g/dL Normal 6.0-8.5 [facility] Comment on above: Performed By: #### 1 33282, 0389362, 669307, 431663, 047319 ####[facility] [address]ttmxm[address] [place] [address] Medical Director: Gerber Carter MD Sodium 139 mmol/L Normal 135-145 [facility] Comment on above: Performed By: #### 1 55762, 8241080, 644971, 115232, 049588 ####[facility] [address]ksvied99[address] [place], [place] [id number]) [phone] Director: Gerber Carter MD Urea nitrogen 10 mg/dL Normal 10-20 [facility] Comment on above: Performed By: #### 1 61371, 5516705, 326276, 172096, 637238 ####[facility] X[address]abk67[address] [place], [place] [address]) [phone] Director: Gerber Carter MD CT ABD PELVIS WO IV CONTRAST on 04-02-2017 CT ABD PELVIS WO IV CONTRAST FINAL REPORTEXAM: CT ABD PELVIS WO IV CONTRASTHISTORY: TENDERNESS TECHNIQUE: Noncontrast CT of the abdomen and pelvis performed. No IV or gastrointestinal contrast was administered. No reformatted images were provided for interpretation. PRIORS: None.FINDINGS: The visualized aspects of the lung bases are clear.Within the limitations of a non-enhanced study, the visualized liver, spleen, pancreas, adrenal glands and kidneys demonstrate no significant abnormalities.There are no renal stones, ureteral stones, hydronephrosis, or evidence of obstructive uropathy.There is no abdominal aortic aneurysm.There is no evidence of intestinal obstruction.The appendix is normal.There are no abnormal collections of fluid, inflammatory changes or free air.The bladder is unremarkable.IMPRESSION: There is no significant abnormality identified.Technologist: DANIEL JEFFRIESFDictated By: MORRIS LLOYD, [facility] By: MORRIS LLOYD, Claudia Out: 04/02/17 12:49:53 Normal [facility] ED Physician Reporton 2017 ED Physician Report Patient: JULY MACHUCA Age: 26 years Sex: Female : 1990 Associated Diagnoses: Medication refill; Acute diarrhea; Abdominal pain in female Author: RADHA PLUNKETT MD Basic Information Time seen: Time Seen:RADHA PLUNKETT MD / 04/02/2017 10:19. History source: Patient. Arrival mode: Private vehicle. History limitation: None. Additional information: Dr. Radha Plunkett: I personally performed the services described in the documentation, reviewed and edited the documentation which was dictated to the scribe in my presence, and it accurately records my words and actions.. History of Present Illness The patient presents with Medication refills, Vaginal bleeding on implant, Diarrhea with mucus, Abdominal pain. Associated symptoms: Worsening chronic LEFT-side abdominal pain, Worsening chronic diarrhea of mucus mixed with stool, which is new, Light and constant vaginal bleeding for 2 weeks, denies chest pain, denies vomiting, denies fever, denies chills, denies dizziness, denies dysuria and denies blood in stool. 26 y/o female with hx of lymphocytic colitis and heroin abuse presents to ED for evaluation and med refills. Pt has hx of heroin abuse, with last use in December 2016. Pt reports she ran out of her Rx of Prozac yesterday. She notes being on Prozac for past 2 years, with current dose of 40 mg/day. Her last Prozac Rx was filled on 01/23/17, but pt reports she received her meds while admitted to psych facility recently, causing her to just run out now. Pt notes having an appt scheduled at a clinic on 03/30, but it was cancelled d/t weather. Pt notes she does not currently have a physician in the area. She notes previous psychiatrist Dr. Bruno was in [place]. Pt also reports having light vaginal bleeding for past 2 weeks, though she has implantable control. Pt notes she got the implant at [facility] in January 2017, and has not had any bleeding until now. Pt denies any pelvic cramping. Pt also reports having chronic abdominal pain which is worsening, located on her LEFT side. She notes this pain is similar to previous episodes with lymphocytic colitis. Pt reports having chronic diarrhea as well, from hx of lymphocytic colitis, which has recently been stool mixed with mucus, which is new. Pt also reports needing a med refill for Rx of Pepsid, 20 mg BID, as she took her last dose this morning. Pt does note having recent abdominal CT at [facility] in early March. Pt states she is currently on Mesalamine for hx of colitis, per a doctor at [facility]. Pt denies fever, chills, bloody stool, dizziness, chest pain, urinary issues, and emesis. Pt voices no other concerns at this time. Review of Systems Constitutional symptoms: Negative except as documented in HPI. Skin symptoms: Negative except as documented in HPI. Eye symptoms: Negative except as documented in HPI. ENMT symptoms: Negative except as documented in HPI. Respiratory symptoms: Negative except as documented in HPI. Cardiovascular symptoms: Negative except as documented in HPI. Gastrointestinal symptoms: Negative except as documented in HPI. Genitourinary symptoms: Negative except as documented in HPI. Musculoskeletal symptoms: Negative except as documented in HPI. Psychiatric symptoms: Negative except as documented in HPI. Endocrine symptoms: Negative except as documented in HPI. Hematologic/Lymphatic symptoms: Negative except as documented in HPI. Allergy/immunologic symptoms: Negative except as documented in HPI. Neurologic symptoms Negative except as documented in HPI. Additional review of systems information: All other systems reviewed and otherwise negative. Health Status Allergies: Allergic Reactions (All)Severity Not DocumentedAugmentin- No reactions were documented.Penicillin- No reactions were documented.. Medications: (Selected) Documented MedicationsDocumentedPRO raghu 40 mg oral capsule: 40 mg = 1 caps, ORAL, DAILY, 30 caps, 0 Refill(s)Pepcid 20 mg oral tablet: 20 mg = 1 tabs, ORAL, BID, 180 tabs, 0 Refill(s)Singulair: ORAL, DAILY, 0 Refill(s)ZyPREXA 7.5 mg oral tablet: 7.5 mg = 1 tabs, ORAL, DAILY, 30 tabs, 0 Refill(s)mesalamine: TID, 0 Refill(s), per nurse's notes. Past Medical/ Family/ Social History Surgical history: Tonsillectomy and Adenoidectomy. (07433)., Reviewed as documented in chart. Family history: No family history items have been selected or recorded., Reviewed as documented in chart. Social history: Drug use: hx of heroin abuse, last use in December 2016. Problem list: Active Problems (2)Drug abuse Lymphocytic colitis , per nurse's notes. Physical Examination Vital Signs Vital Signs 04/02/2017 10:20 EST Temperature Oral 36.6 degC NORMAL Peripheral Pulse Rate 73 bpm NORMAL Respiratory Rate 16 br/min NORMAL Systolic Blood Pressure 118 mmHg NORMAL Diastolic Blood Pressure 76 mmHg NORMAL SpO2 98 % NORMAL Oxygen Therapy Room air Height/Length Dosing 165.10 cm Weight Dosing 95.5 kg Body Mass Index Dosing 35 . Per nurse's notes. General: Alert. Skin: Warm, dry, no rash. Head: Normocephalic, atraumatic. Neck: Supple, trachea midline. Eye: Pupils are equal, round and reactive to light, extraocular movements are intact. Ears, nose, mouth and throat: Oral mucosa moist. Cardiovascular: Regular rate and rhythm, No murmur, No edema. Respiratory: Lungs are clear to auscultation, respirations are non-labored, breath sounds are equal. Gastrointestinal: Soft, Non distended, Normal bowel sounds, Tenderness: Mild, left upper quadrant, left lower quadrant, Guarding: Negative, Rebound: Negative. Back: Normal range of motion. Musculoskeletal: Normal ROM, normal strength. Psychiatric: Cooperative. Neurological Alert and oriented to person, place, time, and situation, No focal neurological deficit observed, normal sensory observed, normal motor observed, normal speech observed. Medical Decision Making Documents reviewed: Emergency department nurses' notes, flowsheet, emergency department records, prior records. Results review: Lab results : Laboratory 04/02/2017 11:42 EST Estimated Creatinine Clearance 97.57 mL/min 04/02/2017 11:10 EST Color, U Yellow Appearance, U Hazy Specific Entiat, U 1.025 NORMAL pH, U 5.0 NORMAL Protein, U 30 mg/dl Glucose Qual, U Negative Ketones, U Negative Bilirubin, U Negative Blood, U Large Urobilinogen Qual, U <2.0 mg/dl Nitrite, U Negative Leukocyte Esterase, U Trace RBC/HPF, U 37 #/HPF HI WBC/HPF, U 14 #/HPF HI Squamous Epithelial Cells, U 4 #/HPF NA Bacteria, U Occasional Mucous, U Occasional 04/02/2017 11:05 EST BUN 10 mg/dL NORMAL Na 139 mmol/L NORMAL K 4.2 mmol/L NORMAL Chloride 109 mmol/L NORMAL CO2, venous 23.0 mmol/L NORMAL Glucose 76 mg/dL NORMAL Creatinine 0.8 mg/dL NORMAL Total Protein 7.3 g/dL NORMAL Calcium 8.7 mg/dL NORMAL Bilirubin, Total 0.25 mg/dL NORMAL Alk Phos 61 unit/L NORMAL GOT 16 unit/L NORMAL GPT 15 unit/L NORMAL BUN/Creat Ratio 12.8 NA Calculated Osmolality 275 mOsm/kg NORMAL Globulin 3.9 g/dL NA A/G Ratio 0.9 NA Lipase 130 unit/L NORMAL HCG, Qual <1.0 mIU/mL NA ALB 3.4 g/dL NORMAL Glomerular Filtration Rate >60 mL/min/1.73m? NA GFR AA >60 NA WBC 8.1 x10 RBC 4.52 x10 HGB 13.3 g/dL NORMAL HCT 39.7 % NORMAL MCV 87.8 fL NORMAL MCH 29.4 pg NORMAL MCHC 33.4 g/dL NORMAL RDW 15.8 HI Platelet 248 x1000 NORMAL MPV 9.9 fL NORMAL Nucleated RBC% 0 /100WC NA Lymph % 32.3 % NA Kern % 9.4 % NA Neutrophil % 52.4 % NA Eosin % 5.1 % NA Basos % 0.7 % NA Lymph Count 2.62 x1000 NORMAL Kern Count 0.76 x1000 NORMAL Neutrophil Count (ANC) 4.26 x1000 NORMAL Eos Count 0.42 x1000 NORMAL Baso Count 0.06 x1000 NORMAL . Radiology results: Result type: CT ABD PELVIS WO CONTRASTResult date: April 02, 2017 12:15 ESTResult status: (Final)Result title: CT ABD PELVIS WO IV CONTRASTPerformed by: ANIRUDH CACERES MD on April 02, 2017 12:48 ESTVerified by: ANIRUDH CACERES MD on April 02, 2017 12:49 ESTEncst luke medical centerer info: [phone], [facility], Emergency, 04/02/2017 - * Final Report *Reason For ExamTENDERNESSCT ABD PELVIS WO IV CONTRASTFINAL REPORTEXAM: CT ABD PELVIS WO IV CONTRASTHISTORY: TENDERNESS TECHNIQUE: Noncontrast CT of the abdomen and pelvis performed. No IV or gastrointestinal contrast was administered. No reformatted images were provided for interpretation. PRIORS: None.FINDINGS: The visualized aspects of the lung bases are clear.Within the limitations of a non-enhanced study, the visualized liver, spleen, pancreas, adrenal glands and kidneys demonstrate no significant abnormalities.There are no renal stones, ureteral stones, hydronephrosis, or evidence of obstructive uropathy.There is no abdominal aortic aneurysm.There is no evidence of intestinal obstruction.The appendix is normal.There are no abnormal collections of fluid, inflammatory changes or free air.The bladder is unremarkable.IMPRESSION: There is no significant abnormality identified.Signature LineTechnologist: DANIEL JEFFRIESFDictated By: MORRIS LLOYD, SAVANNAHLIESigned By: MORRIS LLOYD, DARLINESignsharon Out: 04/02/17 12:49:53. Reexamination/ Reevaluation Vital signs results included from flowsheet : Vital Signs 04/02/2017 13:00 EST Peripheral Pulse Rate 74 bpm NORMAL Systolic Blood Pressure 113 mmHg NORMAL Diastolic Blood Pressure 75 mmHg NORMAL Mean Arterial Pressure, Cuff 88 mmHg SpO2 100 % NORMAL Oxygen Therapy Room air 04/02/2017 10:30 EST Mean Arterial Pressure, Cuff 90 mmHg Notes: Discussed today's findings, in addition to providing specific details for the plan of care and counseling regarding the diagnosis and prognosis. Discussed the return indications and importance of follow-up. Questions are answered. Impression and Plan Diagnosis Medication refill (FPR48-HA Z76.0, Discharge, Emergency medicine, Medical) Acute diarrhea (YOS16-AF R19.7, Discharge, Emergency medicine, Medical) Abdominal pain in female (FUR62-PO R10.9, Discharge, Emergency medicine, Medical) Plan Condition: Stable. Disposition: Discharged: Time 04/02/2017 13:33:00, to home. Prescriptions: Launch Meds List (Selected) PrescriptionsPrescribedP ROzac 40 mg oral capsule: 40 mg = 1 caps, ORAL, DAILY, for 7 days, 7 caps, 0 Refill(s). Patient was given the following educational materials: Abdominal Pain (4279), Medicine Refill at the Emergency Department. Follow up with: Return to ER for worsening symptoms.; [facility] Within 3 to 5 days; [facility] Within 3 to 5 days. Counseled: Patient, Friend, Regarding diagnosis, Regarding diagnostic results, Regarding treatment plan, Patient indicated understanding of instructions. Notes: I, Colton Juan Francisco, scribing for and in the presence of Radha Plunkett MD. Scribe signature: Jorge Mitchell, 04/02/2017 10:52 , Sue Flores, scribing for and in the presence of Dr. Radha Plunkett MD. , Scribe Signature: Jorge Carias, 04/02/2017 13:43 . Jose PLUNKETT MD 04/02/2017 15:51 Normal [facility] ED Progress Noteon 8 ED Progress Note pt to exam 9 from waiting room, here with roommate from rehab housept has been there since Mar 23pt sts she does not have a dr out this way yet, and is out of her Prozac 40mglast dose was yesterdaypt is also now requesting a refill on her pepcid 20mg bidpt also c/o mucousy type diarrhea x 1 week; has lymphocytic colitis and llq pain x 2 dayssts always has diarrhea and llq pain, but noted the mucousy in diarrhea nowalso sts she has control implant in her left arm since jan, and had not had bleeding yet until 2 weeks ago, and now has not stopped for 2 weeks; [facility], [facility] use dec 2016, used thc mar 23, denies drug use alessia plunkett at [id number] small iv placed with some difficulty, very small veinslabs drawn/sent, ua [id number] resting, no current [id number] to [id number] pt sitting in room eating chips and drinking soda that friend providedinformed pt she is currently npo until ct scan comes back, sts she [id number] pt up for [id number] discharged pt with instructions and 1 week Rx for prozac; pt aware she must f/u with clinic or f/u contact givenambulated out with friend, no acute distress noted Normal [facility] HCGon 04-02-2017 HCG, Qual <1.0 Normal [facility] Comment on above: Result Comment: 0 - 3 Negative3 - 50 Inconclusive>50 Positive Performed By: #### 1 34761, [id number], 541234, 236266, 348409 ####[facility] [address] [place] [address] Medical Director: Gerber Carter MD HEMOon 04-02-2017 DIFF? No Normal [facility] Comment on above: Performed By: #### 1 74529, 4818239, 994482, 582760, 630250 ####[facility] [address]pe[address] [place], [place] [address]) [phone] Director: Gerber Carter MD Erythrocyte distribution width Auto Ratio (RBC) 15.8 % High 11.5-14.5 [facility] Comment on above: Performed By: #### 1 29141, 8230287, 977867, 953144, 082857 ####[facility] [address]xbh[address]99[address] [place], [place] [address]) [phone] Director: Gerber Carter MD Erythrocytes (RBC) 4.52 x10 Normal 4.20-5.40 [facility] Comment on above: Result Comment: Note : RBC morphology is normal unless otherwise stated. Evaluation performed only if differential is requested. Performed By: #### 1 05845, 1751417, 163269, 107750, 852786 ####[facility] [address]csat[address] [place], [place] [address]) [phone] Director: Gerber Carter MD Hematocrit (HCT) 39.7 % Normal 36.0-46.0 [facility] Comment on above: Performed By: #### 1 14320, 1397480, 275884, 163857, 828696 ####[facility] [address]ci[address] [place], [place] [address]) [phone] Director: Gerber Carter MD Hemoglobin mass conc (Bld) 13.3 g/dL Normal 12.0-16.0 [facility] Comment on above: Performed By: #### 1 23423, 4748845, 003195, 469740, 704449 ####[facility] [address]ukmksnm577[address] [place], [place] [address]) [phone] Director: Gerber Carter MD MCH 29.4 pg Normal 27.0-34.0 [facility] Comment on above: Performed By: #### 1 20453, 5239625, 468948, 602908, 490809 ####[facility] [address]om[address] [place] [address] Medical Director: Gerber Carter MD MCHC mass conc (RBC) 33.4 g/dL Normal 32.0-37.[address] [facility] Comment on above: Performed By: #### 1 42816, 0252346, 649816, 934662, 130892 ####[facility] [address]charnwe[address] [place] [address] Medical Director: Gerber Carter MD MCV 87.8 fL Normal 80.0-100.0 [facility] Comment on above: Performed By: #### 1 58985, 9417114, 754815, 771696, 705998 ####[facility] [address]dpsofls[address]152 [place] [address] Medical Director: Gerber Carter MD Nucleated RBC% 0 /100WC Normal [facility] Comment on above: Performed By: #### 1 32982, 2286492, 567805, 041577, 118879 ####[facility] [address]65[address] [place] [address] Medical Director: Gerber Carter MD Platelet mean volume (PMV) 9.9 fL Normal 7.4-10.4 [facility] Comment on above: Performed By: #### 1 91685, 4799254, 416533, 071292, 745685 ####[facility] [address]vo[address] [place] [address] Medical Director: Gerber Carter MD Platelets 248 x1000 Normal 150-450 [facility] Comment on above: Performed By: #### 1 19171, 1136839, 680638, 600382, 580611 ####[facility] [address]dbkskpt33675 [place] [address] Medical Director: Gerber Carter MD WBC (Leukocytes) 8.1 10*3/uL Normal [facility] Comment on above: Performed By: #### 1 05684, 8309275, 388045, 815311, 730250 ####[facility] [address]htnvro[address]278 [place] [address] Medical Director: Gerber Carter MD WBC (Leukocytes) 8.1 x10 Normal 4.5-11.0 [facility] Comment on above: Performed By: #### 1 39655, 7744735, 657742, 376033, 889923 ####[facility] [address]ysbzg[address]07 [place] [address] Medical Director: Gerber Carter MD LIPon 04-02-2017 Lipase 130 unit/L Normal 73-393 [facility] Comment on above: Performed By: #### 1 60074, 3520931, 746991, 732003, 672163 ####[facility] [address]kgwrhhh09452 [place] [address] Medical Director: Gerber Carter MD UAon 04-02-2017 U MICRO Indicated Normal [facility] Comment on above: Performed By: #### 1 18662 ####[facility] [address]uxzdk604[address] [place] [address] Medical Director: Gerber Carter MD Appearance, U Hazy Normal [facility] Comment on above: Performed By: #### 1 75556 ####[facility] [address]uxdxvco[address] [place] [address] Medical Director: Gerber Carter MD Bacteria, U Occasional Normal [facility] Comment on above: Performed By: #### 1 34199 ####[facility] [address]kvsmc[address]2800 [place] [address] Medical Director: Gerber Carter MD Bilirubin (direct) Negative Normal Negative [facility] Comment on above: Performed By: #### 1 61459 ####[facility] [address]lycbpq44531 [place] [address] Medical Director: Gerber Carter MD Blood, U Large Abnormal Negative [facility] Comment on above: Performed By: #### 1 23940 ####[facility] [address]skgrj33666 [place] [address] Medical Director: Gerber Carter MD Color, U Yellow Normal [facility] Comment on above: Performed By: #### 1 92517 ####[facility] [address]zygirs60851 [place] [address] Medical Director: Gerber Carter MD Erythrocytes (RBC) 37 #/HPF High 0-3 [facility] Comment on above: Performed By: #### 1 20391 ####[facility] [address]zchnnc26993 [place] [address] Medical Director: Gerber Carter MD Glucose Qual, U Negative Normal Negative [facility] Comment on above: Performed By: #### 1 41798 ####[facility] [address]lhur[address]72 [place] [address] Medical Director: Gerber Carter MD Ketones, U Negative Normal Negative [facility] Comment on above: Performed By: #### 1 27028 ####[facility] [address]qzgzz99493 [place] [address] Medical Director: Gerber Carter MD Leukocyte Esterase, U Trace Abnormal Negative [facility] Comment on above: Performed By: #### 1 19469 ####[facility] [address]qxr[address]32 [place] [address] Medical Director: Gerber Carter MD Mucous, U Occasional Normal [facility] Comment on above: Performed By: #### 1 62866 ####[facility] [address]cdam21263 [place] [address] Medical Director: Gerber Carter MD Nitrite, U Negative Normal Negative [facility] Comment on above: Performed By: #### 1 70210 ####[facility] Qztobpfu04751 [place] [address] Medical Director: Gerber Carter MD pH, U 5.0 Normal 4.5-8.0 [facility] Comment on above: Performed By: #### 1 04460 ####[facility] [address]kvznnoy40470 [place] [address] Medical Director: Gerber Carter MD Protein, U 30 mg/dl Abnormal Negative [facility] Comment on above: Performed By: #### 1 31979 ####[facility] Dvcggazu13813 [place] [address] Medical Director: Gerber Carter MD Specific Entiat, U 1.025 Normal 1.001-1.[address] [facility] Comment on above: Performed By: #### 1 49458 ####[facility] [address] [place] [address] Medical Director: Gerber Carter MD Squamous Epithelial Cells, U 4 #/HPF Normal [facility] Comment on above: Performed By: #### 1 96740 ####[facility] [address]qgkcw43523 [place] [address] Medical Director: Gerber Carter MD Urobilinogen Qual, U <2.0 mg/dl Normal <2.0 mg/dl [facility] Comment on above: Result Comment: EU/d l and mg/dl are equivalent units. Performed By: #### 1 67646 ####[facility] [address] [place] [address] Medical Director: Gerber Carter MD WBC (Leukocytes) 14 #/HPF High 0-5 [facility] Comment on above: Performed By: #### 1 66503 ####[facility] Zyhepbkk37359 [place], [place] [id number]) [phone] Director: Gerber Carter MD ALCOHOL SERUMon 03-23-2017 Alcohol, Serum <3 Normal [facility] Comment on above: Result Comment: Note : Alcohol values performed at [facility] are performed on Serum and reported in mg/dl, which is different then the state reporting units of g/dl which is performed on whole blood. Result reporting units are based on test methodology and are not interchangable. Performed By: #### 1 51786 ####[facility] [address]xiwwkze36905 [place] [address] Medical Director: Gerber Carter MD AUTO DIFFon 03-23-2017 Basophils Auto #/vol (Bld) 0.11 x1000 Normal 0.00-0.20 [facility] Comment on above: Performed By: #### 1 99168, 4767193, 526886, 486737 ####[facility] [address]pmd47566 [place] [address] Medical Director: Gerber Carter MD Basos % 1.1 % Normal [facility] Comment on above: Performed By: #### 1 81867, 6211838, 315565, 778411 ####[facility] Oshtxmsu69088 [place] [address] Medical Director: Gerber Carter MD Eos Count 0.42 x1000 Normal 0.00-0.50 [facility] Comment on above: Performed By: #### 1 07110, 7604085, 986607, 737952 ####[facility] Gqhgqyzy16239 [place] [address] Medical Director: Gerber Carter MD Eosinophils/100 leukocytes 4.4 % Normal [facility] Comment on above: Performed By: #### 1 77466, 1373982, 021197, 292176 ####[facility] Qemxljjs84771 [place] [address] Medical Director: Gerber Carter MD Lymphocytes 3.80 x1000 Normal 1.20-4.80 [facility] Comment on above: Performed By: #### 1 68081, 4102383, 379501, 863369 ####[facility] Fkdzzhsi56623 [place] [address] Medical Director: Gerber Carter MD Lymphocytes/100 leukocytes 39.1 % Normal [facility] Comment on above: Performed By: #### 1 28706, 7194257, 497687, 452861 ####[facility] Gnrepbeq15431 [place] [address] Medical Director: Gerber Carter MD Kern Count 0.67 x1000 Normal 0.10-1.00 [facility] Comment on above: Performed By: #### 1 59438, 8990789, 981701, 038969 ####[facility] Jnlevoqr95143 [place] [address] Medical Director: Gerber Carter MD Monocytes/100 leukocytes 6.9 % Normal [facility] Comment on above: Performed By: #### 1 10508, 4375749, 580680, 012970 ####[facility] Niciahta93977 [place] [address] Medical Director: Gerber Carter MD Neutrophils 4.70 x1000 Normal 1.40-8.80 [facility] Comment on above: Performed By: #### 1 09992, 8828772, 046537, 247194 ####[facility] Jdcsptis53179 [place] [address] Medical Director: Gerber Carter MD Neutrophils/100 WBC Auto (Bld) 48.4 % Normal [facility] Comment on above: Performed By: #### 1 67722, 3298716, 951282, 527948 ####[facility] Zglotbro34756 [place] [address] Medical Director: Gerber Carter MD Behavioral Health Consultati onon 03-23-2017 Behavioral Health Consultation , Yoselyn states they have beds at [facility], faxed to [facility], [facility], no beds [facility]elina Figueroa states they only have acute female beds, cant take referral [facility], no beds Faxed to will await to hear. Normal [facility] COMPMETAon 03-23-2017 Globulin 4.2 g/dL Normal [facility] Comment on above: Performed By: #### 1 90191, 1343123, 533224, 745222 ####[facility] Wgrvwjra11321 [place] [address] Medical Director: Gerber Carter MD Osmolality 277 mOsm/kg Normal 275-295 [facility] Comment on above: Performed By: #### 1 28404, 0049951, 394174, 316062 ####[facility] Xpjzluhi32587 [place] [address] Medical Director: Gerber Carter MD eGFR (non-black) mL/min/{1.73_m2} Normal [facility] Comment on above: Result Comment: Afri can Bulgarian GFR Calc Performed By: #### 1 26067, 1217362, 335357, 530935 ####[facility] Lmxsnwbn08774 [place] [address] Medical Director: Gerber Carter MD Result Comment: Non GFR CalcMedical judgement is necessary to interpret GFR. The calculated GFR may not accurately reflect renal status in patients >70 years, women, acutely ill hospitalized patients and patients with acute renal failure or known renal disease.Note:Creatinine clearance (not GFR) should be used for drug dosing. BUN/Creatinine Ratio 20.1 mg/mg Normal [facility] Comment on above: Performed By: #### 1 62395, 3093171, 817264, 692527 ####[facility] Vmpddlcj51027 [place] [address] Medical Director: Gerber Carter MD Albumin/Globulin Ratio 0.8 {ratio} Normal [facility] Comment on above: Performed By: #### 1 61926, 0999570, 398683, 293739 ####[facility] Tdngamqj63139 [place] [address] Medical Director: Gerber Carter MD Alk Phos 66 unit/L Normal 45-117 [facility] Comment on above: Performed By: #### 1 05125, 8582687, 740247, 449408 ####[facility] Tmolvpog25723 [place] [address] Medical Director: Gerber Carter MD Bilirubin (total) 0.29 mg/dL Normal 0.20-1.00 [facility] Comment on above: Performed By: #### 1 24055, 9175368, 971394, 938575 ####[facility] Lseoleeh08593 [place] [address] Medical Director: Gerber Carter MD Protein 7.7 g/dL Normal 6.0-8.5 [facility] Comment on above: Performed By: #### 1 43640, 7932988, 286104, 016705 ####[facility] Fwsqvfbm11415 [place] [address] Medical Director: Gerber Carter MD GPT 19 unit/L Normal 13-56 [facility] Comment on above: Result Comment: Carmel puncture should occur prior to sulfasalazine and/or sulfapyridine administration due to the potential for falsely depressed results.Baseline assay values before administration of sulfasalazine and sulfapyridine therapy would not be affected. Performed By: #### 1 49403, 4645099, 983099, 907340 ####[facility] Xxknlxzx26107 [place] [address] Medical Director: Gerber Carter MD Creatinine 0.8 mg/dL Normal 0.6-1.0 [facility] Comment on above: Performed By: #### 1 40679, 6698208, 558415, 870625 ####[facility] Snyxwglj89815 [place], [place] [id number]) [phone] Director: Gerber Carter MD GOT 17 unit/L Normal 15-37 [facility] Comment on above: Result Comment: Resu lts may be increased due to hemolysis.Venipuncture should occur prior to sulfasalazine and/or sulfapyridine administration due to the potential for falsely depressed results.Baseline assay values before administration of sulfasalazine and sulfapyridine therapy would not be affected. Performed By: #### 1 43309, 2574196, 667037, 694743 ####[facility] Blrysyno40007 [place], [place] [address]) [phone] Director: Gerber Carter MD Glucose mass conc 102 mg/dL High 72-100 [facility] Comment on above: Result Comment: Carmel puncture should occur prior to sulfasalazine administration due to the potential for falsely depressed results. Venipuncture should occur prior to sulfapyridine administration due to the potential falsely elevated results.Baseline assay values before administration of sulfasalazine and sulfapyridine therapy would not be affected. Performed By: #### 1 83592, 6945803, 094256, 182026 ####[facility] Sxweylee53668 [place], [place] [address]) [phone] Director: Gerber Carter MD Urea nitrogen 16 mg/dL Normal 10-20 [facility] Comment on above: Performed By: #### 1 85347, 0972602, 773425, 869581 ####[facility] Wqpunapd18531 [place] [address] Medical Director: Gerber Carter MD CO2 24.4 mmol/L Normal 21.0-32.0 [facility] Comment on above: Performed By: #### 1 37205, 1847115, 028657, 240198 ####[facility] Bpbywmad65850 [place] [address] Medical Director: Gerber Carter MD Albumin 3.5 g/dL Normal 3.4-5.0 [facility] Comment on above: Performed By: #### 1 84574, 1833093, 438278, 955765 ####[facility] Wqqwlyrc25850 [place] [address] Medical Director: Gerber Carter MD Calcium 8.5 mg/dL Normal 8.5-10.5 [facility] Comment on above: Performed By: #### 1 01534, 9523427, 120147, 457059 ####[facility] Qfqnovjh52912 [place] [address] Medical Director: Gerber Carter MD Potassium molar conc 4.1 mmol/L Normal 3.5-5.[address] [facility] Comment on above: Result Comment: Resu lts may be increased due to hemolysis. Performed By: #### 1 81957, 6870194, 834761, 024163 ####[facility] Xrwrthtt97887 [place] [address] Medical Director: Gerber Carter MD Sodium 138 mmol/L Normal 135-145 [facility] Comment on above: Performed By: #### 1 59117, 4838265, 083843, 952416 ####[facility] Eixzrxic58183 [place] [address] Medical Director: Gerber Carter MD Chloride 106 mmol/L Normal 100-109 [facility] Comment on above: Performed By: #### 1 05631, 2807788, 208680, 484760 ####[facility] Bnxlyvkh30722 [place] [address] Medical Director: Gerber Carter MD ED Physician Reporton 2017 ED Physician Report Patient: JULY MACHUCA Age: 26 years Sex: Female : 1990 Associated Diagnoses: Suicidal ideation Author: COLTON BEGUM DO Basic Information Time seen: Date & time 03/23/2017 12:26:00. History source: Patient. Arrival mode: Private vehicle. History limitation: None. History of Present Illness The patient presents with psychiatric problem and suicidal ideation. The onset was 4 days ago. The course/duration of symptoms is worsening. Character of symptoms suicidal thoughts. The degree of symptoms is moderate. Self injury: none. There are exacerbating factors including financial problems and housing problems. The relieving factor is none. Risk factors consist of suicide risk and not homicide risk. Prior episodes: occasional. Therapy today: none. Associated symptoms: none. C/o SI x 4 days. H/o depression, heroin abuse, sucide attempt. Here from group home house for talking about SI. Patient increased depression and SI over last few days. Patient got kicked out of her previous group home house for bringing home narcotics from hospital. Patient has no family close, no social support. Took narcots 3 days ago from hospital. Patient admits to having thoughts about overdosing on her medication. Has h/o previous OD attempt in 2014. Denies homicidal ideation.. Review of Systems Constitutional symptoms: Negative except as documented in HPI. Skin symptoms: Negative except as documented in HPI. Eye symptoms: Negative except as documented in HPI. ENMT symptoms: Negative except as documented in HPI. Respiratory symptoms: Negative except as documented in HPI. Cardiovascular symptoms: Negative except as documented in HPI. Gastrointestinal symptoms: Negative except as documented in HPI. Genitourinary symptoms: Negative except as documented in HPI. Musculoskeletal symptoms: Negative except as documented in HPI. Psychiatric symptoms: Negative except as documented in HPI. Endocrine symptoms: Negative except as documented in HPI. Hematologic/Lymphatic symptoms: Negative except as documented in HPI. Allergy/immunologic symptoms: Negative except as documented in HPI. Neurologic symptoms Negative except as documented in HPI. Additional review of systems information: All other systems reviewed and otherwise negative. Health Status Allergies: Allergic Reactions (Selected)Severity Not DocumentedPenicillin- No reactions were documented.. Past Medical/ Family/ Social History Medical history: No active or resolved past medical history items have been selected or recorded.. Surgical history: No active procedure history items have been selected or recorded.. Family history: Not significant. Social history: Alcohol use: Occasionally, Tobacco use: Occasionally, Drug use: Heroin. Physical Examination Vital Signs Vital Signs 03/23/2017 12:19 EST Temperature Oral 36.3 degC NORMAL Peripheral Pulse Rate 85 bpm NORMAL Respiratory Rate 18 br/min NORMAL Systolic Blood Pressure 114 mmHg NORMAL Diastolic Blood Pressure 82 mmHg NORMAL SpO2 98 % NORMAL Oxygen Therapy Room air Height/Length Dosing 165.2 cm Weight Dosing 95.6 kg Body Mass Index Dosing 35 . General: Alert, no acute distress. Skin: Warm, dry, pink, intact, no pallor, no rash. Head: Normocephalic, atraumatic. Neck: Supple, trachea midline, no tenderness. Eye: Normal conjunctiva. Ears, nose, mouth and throat: Oral mucosa moist, no pharyngeal erythema or exudate. Cardiovascular: Regular rate and rhythm, No murmur, Normal peripheral perfusion. Respiratory: Lungs are clear to auscultation, respirations are non-labored, breath sounds are equal. Chest wall: No tenderness, No deformity. Musculoskeletal: Normal ROM, normal strength, no tenderness, no swelling, no deformity. Gastrointestinal: Soft, Nontender, Non distended, No organomegaly. Lymphatics: No lymphadenopathy. Psychiatric: Cooperative, Mood and affect: Depressed, Abnormal / Psychotic thoughts: Suicidal, not homicidal. Neurological Alert and oriented to person, place, time, and situation, No focal neurological deficit observed, normal sensory observed, normal motor observed. Medical Decision Making Electrocardiogram: Time 03/23/2017 12:33:00, rate 87, normal sinus rhythm, No ST-T changes, no ectopy, normal [place] & QRS intervals, EP Interp. Results review: Lab results : Laboratory 03/23/2017 13:54 EST Estimated Creatinine Clearance 97.73 mL/min 03/23/2017 12:49 EST BUN 16 mg/dL NORMAL Na 138 mmol/L NORMAL K 4.1 mmol/L NORMAL Chloride 106 mmol/L NORMAL CO2, venous 24.4 mmol/L NORMAL Glucose 102 mg/dL HI Creatinine 0.8 mg/dL NORMAL Total Protein 7.7 g/dL NORMAL Calcium 8.5 mg/dL NORMAL Bilirubin, Total 0.29 mg/dL NORMAL Alk Phos 66 unit/L NORMAL GOT 17 unit/L NORMAL GPT 19 unit/L NORMAL BUN/Creat Ratio 20.1 NA Calculated Osmolality 277 mOsm/kg NORMAL Globulin 4.2 g/dL NA A/G Ratio 0.8 NA Free T4 0.84 ng/dL NORMAL TSH 1.33 uIU/ml NORMAL ALB 3.5 g/dL NORMAL Alcohol, Serum <3 mg/dL NA Glomerular Filtration Rate >60 mL/min/1.73m? NA GFR AA >60 NA WBC 9.7 x10 RBC 4.77 x10 HGB 14.0 g/dL NORMAL HCT 41.8 % NORMAL MCV 87.6 fL NORMAL MCH 29.4 pg NORMAL MCHC 33.5 g/dL NORMAL RDW 16.0 HI Platelet 276 x1000 NORMAL MPV 8.9 fL NORMAL Nucleated RBC% 0 /100WC NA Lymph % 39.1 % NA Kern % 6.9 % NA Neutrophil % 48.4 % NA Eosin % 4.4 % NA Basos % 1.1 % NA Lymph Count 3.80 x1000 NORMAL Kern Count 0.67 x1000 NORMAL Neutrophil Count (ANC) 4.70 x1000 NORMAL Eos Count 0.42 x1000 NORMAL Baso Count 0.11 x1000 NORMAL 03/23/2017 12:36 EST Color, U Yellow Appearance, U Clear Specific Entiat, U 1.027 NORMAL pH, U 6.0 NORMAL Protein, U Negative Glucose Qual, U Negative Ketones, U Negative Bilirubin, U Negative Blood, U Negative Urobilinogen Qual, U <2.0 mg/dl Nitrite, U Negative Leukocyte Esterase, U Trace WBC/HPF, U 3 #/HPF NORMAL Squamous Epithelial Cells, U 5 #/HPF NA Bacteria, U Occasional Mucous, U Occasional Test, U Negative Amphetamines, U Negative Barbituates, U Negative PCP, U Negative Benzodiazepines, U Negative Cocaine, U Negative THC, U Positive Opiates, U Negative Ecstasy, U Negative . MEDICAL CLEARANCE FOR PSYCHIATRIC EVALUATION:No clinical evidence of drug-induced psychosis, meningitis, encephalitis, sepsis, thyroid disease, hypoglycemia, withdrawal syndrome, hypoxemia, electrolyte disturbance, CVA/TIA, seizures, or traumatic brain injury. Reexamination/ Reevaluation Notes: Discussed today's findings, in addition to providing specific details for the plan of care and counseling regarding the diagnosis, prognosis, and need for admission. Questions were answered. Impression and Plan Diagnosis Suicidal ideation ([id number] R45.851, Working, Medical) Plan Condition: Stable. Disposition: Patient care transitioned to: Time: 03/23/2017 13:51:00, COLTON BEGUM DO, admitted to [facility]. Counseled: Patient, Regarding diagnosis, Regarding diagnostic results, Regarding treatment plan, Patient indicated understanding of instructions. Addendum I personally evaluated and examined the patient in conjunction with the MLP and agree with the assessment, treatment plan and disposition of the patient as recorded by the P. Ivon BEGUM DO 03/23/2017 17:00 Normal [facility] ED Progress Noteon 8 ED Progress Note 1215:PT TO EXAM 3 WI TH A FRIEND FOR SUICIDAL THOUGHTS.PT HAS HISTORY OF HEROIN ABUSE AND IS RESIDING AT THE [facility] [address] [place]. STATES LAST USE OF HEROIN WAS Jan. HAS HISTORY OF COLITIS AND WENT TO THE HOSPITAL ON SATURDAY AND RECEIVED NARCOTICS. STATES SHE IS SICK OF SCREWING UP AND VERY DEPRESSED.HAS A SON AT HOME. HISTORY OF OVERDOSE IN 2014. STATES HER PLAN WOULD BE TO TAKE ALL OF HER MEDICATIONS AND . DENIES ANY HI. PT FLAT AFFECT AND QUIET. SHE STATES SHE TRIED GETTING HELP AT HER LAST [facility] HOUSE BUT THEY THREATENED TO KICK HER OUT IF SHE WENT TO THE HOSPITAL FOR HELP. ALL BELONGINGS GATHERED.EKG COMPLETED.PT AWARE OF NEED FOR UA.FRIEND AT BEDSIDE. INTAKE INTO SPEAK WITH PTFRIEND AT BEDSIDE.UPDATED ON PLAN OF [facility] ROUNDING TOOL FOR FURTHER DOCUMENTATIONREPORT GIVEN TO BERNARDA AT [facility] SET UP 90 [id number]:PT TRANSPORTED TO [facility] VIA AMBULANCE.ALL BELONGINGS GATHERED AND SENT WITH CREW Normal [facility] HEMOon 03-23-2017 DIFF? No Normal [facility] Comment on above: Performed By: #### 1 43285, 6784640, 273053, 962284 ####[facility] [address]jijoyov[address] [place], [place] [address] Medical Director: Gerebr Carter MD Erythrocyte distribution width Auto Ratio (RBC) 16.0 % High 11.5-14.5 [facility] Comment on above: Performed By: #### 1 66770, 3465980, 654307, 347720 ####[facility] Ztonwprk56093 [place] [address] Medical Director: Gerbre Carter MD Erythrocytes (RBC) 4.77 x10 Normal 4.20-5.40 [facility] Comment on above: Result Comment: Note : RBC morphology is normal unless otherwise stated. Evaluation performed only if differential is requested. Performed By: #### 1 00176, 6108321, 914952, 847183 ####[facility] Vexmvvfe07999 [place] [address] Medical Director: Gerber Carter MD Hematocrit (HCT) 41.8 % Normal 36.0-46.0 [facility] Comment on above: Performed By: #### 1 63958, 6495909, 956002, 664133 ####[facility] Uobtqtyq16806 [place] [address] Medical Director: Gerber Carter MD Hemoglobin mass conc (Bld) 14.0 g/dL Normal 12.0-16.0 [facility] Comment on above: Performed By: #### 1 76447, 2528003, 217438, 218773 ####[facility] Mwbpizwt42567 [place] [address] Medical Director: Gerber Carter MD MCH 29.4 pg Normal 27.0-34.0 [facility] Comment on above: Performed By: #### 1 62796, 7018811, 456334, 520478 ####[facility] Nkzeqnmu79182 [place] [address] Medical Director: Gerber Carter MD MCHC mass conc (RBC) 33.5 g/dL Normal 32.0-37.[address] [facility] Comment on above: Performed By: #### 1 34675, 4899028, 109705, 478093 ####[facility] Wflgdhan87818 [place] [address] Medical Director: Gerber Carter MD MCV 87.6 fL Normal 80.0-100.0 [facility] Comment on above: Performed By: #### 1 22155, 1292692, 778334, 823578 ####[facility] Vwilimoa65845 [place], [place] [address]) [phone] Director: Gerber Carter MD Nucleated RBC% 0 /100WC Normal [facility] Comment on above: Performed By: #### 1 35562, 1416403, 950728, 700885 ####[facility] Yqlkmnhf83455 [place] [address] Medical Director: Gerber Carter MD Platelet mean volume (PMV) 8.9 fL Normal 7.4-10.4 [facility] Comment on above: Performed By: #### 1 31759, 0665015, 298857, 256719 ####[facility] Xozajaxe51777 [place] [address] Medical Director: Gerber Carter MD Platelets 276 x1000 Normal 150-450 [facility] Comment on above: Performed By: #### 1 85850, 1240832, 833414, 955123 ####[facility] Ekivzxmt49933 [place] [address] Medical Director: Gerber Carter MD WBC (Leukocytes) 9.7 10*3/uL Normal [facility] Comment on above: Performed By: #### 1 33579, 8704304, 919262, 798218 ####[facility] Vdlyylak51737 [place] [address] Medical Director: Gerber Carter MD WBC (Leukocytes) 9.7 x10 Normal 4.5-11.0 [facility] Comment on above: Performed By: #### 1 99120, 7086367, 351613, 425666 ####[facility] Gisajshj91596 [place] [address] Medical Director: Gerber Carter MD THY GPon 03-23-2017 Thyroid stimulating hormone (TSH) 1.33 uIU/ml Normal 0.36-3.74 [facility] Comment on above: Result Comment: High levels of serum biotin may interfere with this test. Performed By: #### 1 20735, 2603175, 203137, 831378 ####[facility] Wkewcbmz28166 [place] [address] Medical Director: Gerber Carter MD Thyroxine (T4) free 0.84 ng/dL Normal 0.76-1.46 [facility] Comment on above: Result Comment: High levels of serum biotin may interfere with this test. Performed By: #### 1 21382, 0940349, 143422, 376155 ####[facility] Suxsqato24226 [place] [address] Medical Director: Gerber Carter MD U DOAon 03-23-2017 Amphetamines, U Negative Normal [facility] Comment on above: Result Comment: Urin e for Drugs of Abuse tests (U Amphetamines, U Barbituates, U PCP, U Benzodiazepines, U Cocaine, U THC, U Opiates & U Ecstasy)provide preliminary test results only. A more specific alternate method must be used in order to obtain a confirmed analytical result. Gas chromatography/mass spectrometry is the preferred confirmatory method. Clinical consideration and professional judgment should be applied to any drug of abuse test result, particularly when preliminary positive results are used.Urine for Drugs of Abuse [place] Levels:Barbiturate 200 ng/ml PCP 25 ng/ml Cocaine 300 ng/ml Opiates 2000 ng/ml Amphetamines 1000 ng/ml Benzodiazepines 200 ng/ml THC 50 ng/ml EXTC 500 ng/ml Performed By: #### 1 97476, 026911 ####[facility] Zdnwiadf23697 [place] [address] Medical Director: Gerber Carter MD Barbituates, U Negative Normal [facility] Comment on above: Performed By: #### 1 97142, 108459 ####[facility] Lwflhmcg78719 [place] [address] Medical Director: Gerber Carter MD Benzodiazepines, U Negative Normal [facility] Comment on above: Performed By: #### 1 78822, 163618 ####[facility] Npiffrwa50921 [place] [address] Medical Director: Gerber Carter MD Cocaine, U Negative Normal [facility] Comment on above: Performed By: #### 1 63473, 516461 ####[facility] Vgypdcak37719 [place] [address] Medical Director: Gerber Carter MD Ecstasy, U Negative Normal [facility] Comment on above: Performed By: #### 1 18600, 956247 ####[facility] Sjdujhxb14456 [place] [address] Medical Director: Gerber Carter MD Opiates, U Negative [facility] Comment on above: Performed By: #### 1 68873, 563523 ####[facility] Djsqzmpm19678 [place] [address] Medical Director: Gerber Carter MD PCP, U Negative [facility] Comment on above: Performed By: #### 1 23994, 110785 ####[facility] Xomhmafk33014 [place] [address] Medical Director: Gerber Carter MD THC, U Positive [facility] Comment on above: Performed By: #### 1 54101, 920125 ####[facility] Deelxyej69467 [place] [address] Medical Director: Gerber Carter MD U TESTon 8 Test, U Negative Normal [facility] Comment on above: Performed By: #### 1 05745, 548485 ####[facility] Btftzkso02754 [place] [address] Medical Director: Gerber Carter MD U Preg Internal QC Present Normal [facility] Comment on above: Performed By: #### 1 84439, 822368 ####[facility] Swokgphm13320 [place] [address] Medical Director: Gerber Carter MD UAon 03-23-2017 U MICRO Indicated Normal [facility] Comment on above: Performed By: #### 1 60142 ####[facility] Qvellrge64253 [place], [place] [id number]) [phone] Director: Gerber Carter MD Appearance, U Clear Normal [facility] Comment on above: Performed By: #### 1 49244 ####[facility] Kljjsjmd31859 [place], [place] [address]) [phone] Director: Gerber Carter MD Bacteria, U Occasional Normal [facility] Comment on above: Performed By: #### 1 52643 ####[facility] Koqxaqmw17126 [place], [place] [address]) [phone] Director: Gerber Carter MD Bilirubin (direct) Negative Normal Negative [facility] Comment on above: Performed By: #### 1 64365 ####[facility] Mcpllnhf24691 [place], [place] [address]) [phone] Director: Gerber Carter MD Blood, U Negative Normal Negative [facility] Comment on above: Performed By: #### 1 96340 ####[facility] Jxqfedtq52566 [place], [place] [address]) [phone] Director: Gerber Carter MD Color, U Yellow Normal [facility] Comment on above: Performed By: #### 1 26625 ####[facility] [id number] [place], [place] [id number]) [phone] Director: Gerber Carter MD Glucose Qual, U Negative Normal Negative [facility] Comment on above: Performed By: #### 1 [id number] ####[facility] [id number] [place], [place] [id number]) [phone] Director: Gerber Carter MD Ketones, U Negative Normal Negative [facility] Comment on above: Performed By: #### 1 [id number] ####[facility] [id number] [place], [place] [id number]) [phone] Director: Gerber Carter MD Leukocyte Esterase, U Trace Abnormal Negative [facility] Comment on above: Performed By: #### 1 [id number] ####[facility] [id number] [place] [address] Medical Director: Gerber Carter MD Mucous, U Occasional Normal [facility] Comment on above: Performed By: #### 1 [id number] ####[facility] Wkyvbeyl17412 [place] [address] Medical Director: Gerber Carter MD Nitrite, U Negative Normal Negative [facility] Comment on above: Performed By: #### 1 [id number] ####[facility] [address] [place] [address] Medical Director: Gerber Carter MD pH, U 6.0 Normal 4.5-8.0 [facility] Comment on above: Performed By: #### 1 [id number] ####[facility] [address] [place] [address] Medical Director: Gerber Carter MD Protein, U Negative Normal Negative [facility] Comment on above: Performed By: #### 1 [id number] ####[facility] [address] [place] [address] Medical Director: Gerber Carter MD Specific Entiat, U 1.027 Normal 1.001-1.[address] [facility] Comment on above: Performed By: #### 1 [id number] ####[facility] [address] [place] [address] Medical Director: Gerber Carter MD Squamous Epithelial Cells, U 5 #/HPF Normal [facility] Comment on above: Performed By: #### 1 [id number] ####[facility] [id number] [place] [address] Medical Director: Gerber Carter MD Urobilinogen Qual, U <2.0 mg/dl Normal <2.0 mg/dl [facility] Comment on above: Result Comment: EU/d l and mg/dl are equivalent units. Performed By: #### 1 [id number] ####[facility] [id number] [place], [place] [id number] Medical Director: Gerber Carter MD WBC (Leukocytes) 3 #/HPF Normal 0-5 [facility] Comment on above: Performed By: #### 1 [id number] ####[facility] [id number] [place], [place] [id number] Medical Director: Gerber Carter MD Urinalysis Routineon 017 Ep Cells Urine >35 Abnormal 0-5 [facility] Comment on above: Performed By: #### G URIN ####[place] [address] Mucus Threads FEW Abnormal None [facility] Comment on above: Performed By: #### G URIN ####[place] [address] Urine, appearance 2+ (SLT CLOUDY) Normal [facility] Comment on above: Performed By: #### G URIN ####[place] [address] Urine, bacteria in sediment 2+ Abnormal None [facility] Comment on above: Performed By: #### G URIN ####[place] [address] Urine, color DARK YELLOW Normal [facility] Comment on above: Performed By: #### G URIN ####[address] [address] Urine, erythrocytes in sediment by area 0-3 Normal 0-3 [facility] Comment on above: Performed By: #### G URIN ####[place] [address] Urine, leukocytes in sedmiment 13-20 Abnormal 0-5 [facility] Comment on above: Performed By: #### G URIN ####[place] [id number] Bilirubin Urine Negative Normal Negative [facility] Comment on above: Performed By: #### G URIN ####[place] [address] Hemoglobin,Urine Negative Normal Negative [facility] Comment on above: Performed By: #### G URIN ####[place] [address] Ketone Urine Negative Normal Negative [facility] Comment on above: Performed By: #### G URIN ####[place] [address] Nitrites Urine Negative Normal Negative [facility] Comment on above: Performed By: #### G URIN ####[place] [address] Protein Urine TRACE Abnormal Negative [facility] Comment on above: Performed By: #### G URIN ####[place] [address] Specific Entiat, Ur 1.025 Normal 1.005-1.030 [facility] Comment on above: Performed By: #### G URIN ####[place] [address] Urine, glucose presence Negative Normal Negative [facility] Comment on above: Performed By: #### G URIN ####[place] [address] Urine, pH 6.0 [pH] Normal 5.0-8.0 [facility] Comment on above: Performed By: #### G URIN ####[place] [address] Urobilinogen,Ur 0.2 EU/dL Normal 0.0-1.0 [facility] Comment on above: Performed By: #### G URIN ####[place] [address] WBC (Leukocytes) TRACE Abnormal Negative [facility] Comment on above: Performed By: #### G URIN ####[place] [address] Urine HCG, Qual.on 7 HCG.beta subunit ( test) Ql (U) Negative Normal Negative [facility] Comment on above: Performed By: #### G HCGU ####[facility] [place], [place] [address] Specific Entiat, Ur 1.025 Normal 1.005-1.030 [facility] Comment on above: Performed By: #### G HCGU ####[facility] [place], [place] [address] Vital Signs Date Time Vital Sign Value Performing Clinician Facility 11-26-2024 11:16-0400 Diastolic blood pressure 72 mm[Hg] Janet Rodas DO Work Phone: [facility] 11-26-2024 11:16-0400 Heart rate 65 /min Janet Rodas DO Work Phone: [facility] 11-26-2024 11:16-0400 SaO2% (BldA) [Mass fraction] 100 % Janet Rodas DO Work Phone: [facility] 11-26-2024 11:16-0400 Systolic blood pressure 115 mm[Hg] Janet Rodas DO Work Phone: [facility] 11-25-2024 17:48-0400 Body mass index (BMI) [Ratio] 40.06 kg/m2 Raf Garland MD Work Phone: [facility] 11-25-2024 17:48-0400 Body temperature 97.59 [degF] Raf Garland MD Work Phone: [facility] 11-25-2024 17:48-0400 Body weight 109.2 kg Raf Garland MD Work Phone: [facility] 11-25-2024 17:48-0400 Diastolic blood pressure 82 mm[Hg] Raf Garland MD Work Phone: [facility] 11-25-2024 17:48-0400 Heart rate 70 /min Raf Garland MD Work Phone: [facility] 11-25-2024 17:48-0400 Respiratory rate 16 /min Raf Garland MD Work Phone: [facility] 11-25-2024 17:48-0400 SaO2% (BldA) [Mass fraction] 98 % Raf Garland MD Work Phone: [facility] 11-25-2024 17:48-0400 Systolic blood pressure 124 mm[Hg] Raf Garland MD Work Phone: [facility] 11-19-2024 10:19-0400 Body height 165.1 cm Mikhail Mckeon MD Work Phone: [facility] 11-19-2024 10:19-0400 Body mass index (BMI) [Ratio] 40.77 kg/m2 Mikhail Mckeon MD Work Phone: [facility] 11-19-2024 10:19-0400 Body weight 111.13 kg Mikhail Mckeon MD Work Phone: [facility] 11-19-2024 10:19-0400 Heart rate 68 /min Mikhail Mckeon MD Work Phone: [facility] 11-19-2024 10:19-0400 SaO2% (BldA) [Mass fraction] 98 % Mikhail Mckeon MD Work Phone: [facility] 10-06-2024 10:10-0400 Diastolic blood pressure 80 mm[Hg] Janet Tomasle DO Work Phone: [facility] 10-06-2024 10:10-0400 Heart rate 63 /min Janet Rodas DO Work Phone: [facility] 10-06-2024 10:10-0400 SaO2% (BldA) [Mass fraction] 99 % Janet Rodas DO Work Phone: [facility] 10-06-2024 10:10-0400 Systolic blood pressure 129 mm[Hg] Janet Rodas DO Work Phone: [facility] 09-30-2024 10:51-0400 Body height 165.1 cm Amilcar Rudert PA-C Work Phone: [facility] 09-30-2024 10:51-0400 Body mass index (BMI) [Ratio] 40.77 kg/m2 Amilcar Rudert PA-C Work Phone: [facility] 09-30-2024 10:51-0400 Body weight 111.13 kg Amilcar Rudert PA-C Work Phone: [facility] 09-30-2024 10:51-0400 Diastolic blood pressure 80 mm[Hg] Amilcar Rudert PA-C Work Phone: [facility] 09-30-2024 10:51-0400 Heart rate 85 /min Amilcar Rudert PA-C Work Phone: [facility] 09-30-2024 10:51-0400 SaO2% (BldA) [Mass fraction] 98 % Amilcar Rudert PA-C Work Phone: [facility] 09-30-2024 10:51-0400 Systolic blood pressure 120 mm[Hg] Amilcar Rudert PA-C Work Phone: [facility] 09-22-2024 09:47-0400 Diastolic blood pressure 73 mm[Hg] Janet Rodas DO Work Phone: [facility] 09-22-2024 09:47-0400 Heart rate 74 /min Janet Rodas DO Work Phone: [facility] 09-22-2024 09:47-0400 SaO2% (BldA) [Mass fraction] 96 % Janet Rodas DO Work Phone: [facility] 09-22-2024 09:47-0400 Systolic blood pressure 122 mm[Hg] Janet Rodas DO Work Phone: [facility] 09-08-2024 11:32-0400 Body height 165.1 cm Mikhail Mckeon MD Work Phone: [facility] 09-08-2024 11:32-0400 Body mass index (BMI) [Ratio] 40.1 kg/m2 Mikhail Mckeon MD Work Phone: [facility] 09-08-2024 11:32-0400 Body weight 109.32 kg Mikhail Mckeon MD Work Phone: [facility] 08-26-2024 10:40-0400 Body height 165.1 cm Amilcar Rudert PA-C Work Phone: [facility] 08-26-2024 10:40-0400 Body mass index (BMI) [Ratio] 40.1 kg/m2 Amilcar Rudert PA-C Work Phone: [facility] 08-26-2024 10:40-0400 Body temperature 98.29 [degF] Amilcar Rudert PA-C Work Phone: [facility] 08-26-2024 10:40-0400 Body weight 109.32 kg Amilcar Rudert PA-C Work Phone: [facility] 08-26-2024 10:40-0400 Diastolic blood pressure 80 mm[Hg] Amilcar Rudert PA-C Work Phone: [facility] 08-26-2024 10:40-0400 Heart rate 89 /min Amilcar Rudert PA-C Work Phone: [facility] 08-26-2024 10:40-0400 SaO2% (BldA) [Mass fraction] 95 % Amilcar Rudert PA-C Work Phone: [facility] 08-26-2024 10:40-0400 Systolic blood pressure 118 mm[Hg] Amilcar Rudert PA-C Work Phone: [facility] 08-05-2024 11:10-0400 Body height 165.1 cm Amilcar Rudert PA-C Work Phone: [facility] 08-05-2024 11:10-0400 Body mass index (BMI) [Ratio] 39.61 kg/m2 Amilcar Rudert PA-C Work Phone: [facility] 08-05-2024 11:10-0400 Body temperature 99.5 [degF] Amilcar Rudert PA-C Work Phone: [facility] 08-05-2024 11:10-0400 Body weight 107.96 kg Amilcar Rudert PA-C Work Phone: [facility] 08-05-2024 11:10-0400 Diastolic blood pressure 90 mm[Hg] Amilcar Rudert PA-C Work Phone: [facility] 08-05-2024 11:10-0400 Heart rate 80 /min Amilcar Rudert PA-C Work Phone: [facility] 08-05-2024 11:10-0400 SaO2% (BldA) [Mass fraction] 97 % Amilcar Rudert PA-C Work Phone: [facility] 08-05-2024 11:10-0400 Systolic blood pressure 130 mm[Hg] Amilcar Rudert PA-C Work Phone: [facility] 07-14-2024 09:37-0400 Body height 165.1 cm Mikhail Mckeon MD Work Phone: [facility] 07-14-2024 09:37-0400 Body mass index (BMI) [Ratio] 35.61 kg/m2 Mikhail Mckeon MD Work Phone: [facility] 07-14-2024 09:37-0400 Body weight 97.07 kg Mikhail Mckeon MD Work Phone: [facility] 07-14-2024 09:37-0400 Heart rate 76 /min Mikhail Mckeon MD Work Phone: [facility] 07-14-2024 09:37-0400 SaO2% (BldA) [Mass fraction] 99 % Mikhail Mckeon MD Work Phone: [facility] 06-16-2024 09:42-0400 Body height 165.1 cm Mikhail Mckeon MD Work Phone: [facility] 06-16-2024 09:42-0400 Body mass index (BMI) [Ratio] 35.61 kg/m2 Mikhail Mckeon MD Work Phone: [facility] 06-16-2024 09:42-0400 Body weight 97.07 kg Mikhail Mckeon MD Work Phone: [facility] 06-16-2024 09:42-0400 Heart rate 77 /min Mikhail Mckeon MD Work Phone: [facility] 06-16-2024 09:42-0400 SaO2% (BldA) [Mass fraction] 98 % Mikhail Mckeon MD Work Phone: [facility] 05-14-2024 10:02-0500 Body height 165.1 cm Judie Holliday MD Work Phone: [facility] 05-14-2024 10:02-0500 Body mass index (BMI) [Ratio] 35.68 kg/m2 Judie Holliday MD Work Phone: [facility] 05-14-2024 10:02-0500 Body temperature 97.7 [degF] Judie Holliday MD Work Phone: [facility] 05-14-2024 10:02-0500 Body weight 97.25 kg Judie Holliday MD Work Phone: [facility] 05-14-2024 10:02-0500 Diastolic blood pressure 79 mm[Hg] Judie Holliday MD Work Phone: [facility] 05-14-2024 10:02-0500 Heart rate 66 /min Judie Holliday MD Work Phone: [facility] 05-14-2024 10:02-0500 Respiratory rate 16 /min Judie Holliday MD Work Phone: [facility] 05-14-2024 10:02-0500 SaO2% (BldA) [Mass fraction] 99 % Judie Holliday MD Work Phone: [facility] 05-14-2024 10:02-0500 Systolic blood pressure 118 mm[Hg] Judie Holliday MD Work Phone: [facility] 05-01-2024 10:33-0500 Body height 165.1 cm Mikhail Mckeon MD Work Phone: [facility] 05-01-2024 10:33-0500 Body mass index (BMI) [Ratio] 33.28 kg/m2 Mikhail Mckeon MD Work Phone: [facility] 05-01-2024 10:33-0500 Body weight 90.72 kg Mikhail Mckeon MD Work Phone: [facility] 05-01-2024 10:33-0500 Heart rate 51 /min Mikhail Mckeon MD Work Phone: [facility] 05-01-2024 10:33-0500 SaO2% (BldA) [Mass fraction] 100 % Mikhail Mckeon MD Work Phone: [facility] 04-14-2024 10:40-0500 Body height 165.1 cm Judie Holliday MD Work Phone: [facility] 04-14-2024 10:40-0500 Body mass index (BMI) [Ratio] 34.48 kg/m2 Judie Holliday MD Work Phone: [facility] 04-14-2024 10:40-0500 Body temperature 97.59 [degF] Judie Holliday MD Work Phone: [facility] 04-14-2024 10:40-0500 Body weight 93.98 kg Judie Holliday MD Work Phone: [facility] 04-14-2024 10:40-0500 Diastolic blood pressure 80 mm[Hg] Judie Holliday MD Work Phone: [facility] 04-14-2024 10:40-0500 Heart rate 64 /min Judie Holliday MD Work Phone: [facility] 04-14-2024 10:40-0500 Respiratory rate 16 /min Judie Holliday MD Work Phone: [facility] 04-14-2024 10:40-0500 SaO2% (BldA) [Mass fraction] 99 % Judie Holliday MD Work Phone: [facility] 04-14-2024 10:40-0500 Systolic blood pressure 122 mm[Hg] Judie Holliday MD Work Phone: [facility] 11-26-2023 18:11-0400 Body mass index (BMI) [Ratio] 34.12 kg/m2 Krislyn Aberegg PA Work Phone: [facility] 11-26-2023 18:11-0400 Body temperature 97.11 [degF] Krislyn Aberegg PA Work Phone: [facility] 11-26-2023 18:11-0400 Body weight 93 kg Krislyn Aberegg PA Work Phone: [facility] 11-26-2023 18:11-0400 Diastolic blood pressure 84 mm[Hg] Krislyn Aberegg PA Work Phone: [facility] 11-26-2023 18:11-0400 Heart rate 87 /min Krislyn Aberegg PA Work Phone: [facility] 11-26-2023 18:11-0400 Respiratory rate 20 /min Krislyn Aberegg PA Work Phone: [facility] 11-26-2023 18:11-0400 SaO2% (BldA) [Mass fraction] 98 % Krislyn Aberegg PA Work Phone: [facility] 11-26-2023 18:11-0400 Systolic blood pressure 133 mm[Hg] Krislyn Aberegg PA Work Phone: [facility] 09-02-2023 14:37-0400 Body mass index (BMI) [Ratio] 36.78 kg/m2 Ema Abarca APRN.CNM Work Phone: [facility] 09-02-2023 14:37-0400 Body weight 100.25 kg Ema Abarca APRN.CNBeckie Work Phone: [facility] 09-02-2023 14:37-0400 Diastolic blood pressure 78 mm[Hg] Ema Abarca VICE PRESIDENT [employer].CNM Work Phone: [facility] 09-02-2023 14:37-0400 Systolic blood pressure 116 mm[Hg] Ema Abarca VICE [employer]IDENT [employer].CNM Work Phone: [facility] 08-27-2023 09:27-0400 Body mass index (BMI) [Ratio] 36.54 kg/m2 Yoselyn Praisler-Wood VICE PRESIDENT [employer] Work Phone: [facility] 08-27-2023 09:27-0400 Body temperature 97.3 [degF] Yoselyn Praisler-Wood VICE PRESIDENT [employer]ER Work Phone: [facility] 08-27-2023 09:27-0400 Body weight 99.6 kg Yoselyn Praisler-Wood VICE PRESIDENT [employer]CR[employer]E [employer]ER Work Phone: [facility] 08-27-2023 09:27-0400 Diastolic blood pressure 70 mm[Hg] Yoselyn Praisler-Wood VICE PRESIDENT [employer]CR[employer]E [employer]ER Work Phone: [facility] 08-27-2023 09:27-0400 Heart rate 76 /min Yoselyn Praisler-Wood VICE PRESIDENT [employer]CR[employer]ER Work Phone: [facility] 08-27-2023 09:27-0400 Respiratory rate 16 /min Yoselyn Praisler-Wood VICE PRESIDENT [employer]ER Work Phone: [facility] 08-27-2023 09:27-0400 SaO2% (BldA) [Mass fraction] 97 % Yoselyn Praisler-Wood VICE PRESIDENT [employer]CR[employer]E [employer]ER Work Phone: [facility] 08-27-2023 09:27-0400 Systolic blood pressure 110 mm[Hg] Yoselyn Praisler-Wood VICE PRESIDENT [employer]CR[employer]ER Work Phone: [facility] 08-02-2023 09:28-0400 Body mass index (BMI) [Ratio] 34.45 kg/m2 Ema Abarca VICE PRESIDENT [employer].CNM Work Phone: [facility] 08-02-2023 09:28-0400 Body weight 93.89 kg Ema Abarca APRN.CNM Work Phone: [facility] 08-02-2023 09:28-0400 Diastolic blood pressure 62 mm[Hg] Ema Abarca APRN.CNM Work Phone: [facility] 08-02-2023 09:28-0400 Systolic blood pressure 108 mm[Hg] Ema Abarca APRN.CNM Work Phone: [facility] 07-18-2023 13:03-0400 Body temperature 97.6 [degF] Dr. Mary Myers Work Phone: [facility] 07-18-2023 13:03-0400 Diastolic blood pressure 65 mm[Hg] Dr. Mary Myers Work Phone: [facility] 07-18-2023 13:03-0400 Heart rate 65 /min Dr. Mary Myers Work Phone: [facility] 07-18-2023 13:03-0400 Respiratory rate 16 /min Dr. Mary Myers Work Phone: [facility] 07-18-2023 13:03-0400 SaO2% (BldA) [Mass fraction] 97 % Dr. Mary Myers Work Phone: [facility] 07-18-2023 13:03-0400 Systolic blood pressure 115 mm[Hg] Dr. Mary Myers Work Phone: [facility] 07-16-2023 08:46-0400 Body height 165.[address] Mary Myers Work Phone: [facility] 07-16-2023 08:46-0400 Body mass index (BMI) [Ratio] 37.3 kg/m2 Dr. Mary Myers Work Phone: [facility] 07-16-2023 08:46-0400 Body weight 101.[address] Mary Myers Work Phone: [facility] 07-09-2023 08:53-0400 Body mass index (BMI) [Ratio] 36.44 kg/m2 Ema Abarca VICE PRESIDENT [employer].CNM Work Phone: [facility] 07-09-2023 08:53-0400 Body weight 99.34 kg Ema Abarca VICE PRESIDENT [employer].CNM Work Phone: [facility] 07-09-2023 08:53-0400 Diastolic blood pressure 83 mm[Hg] Ema Abarca VICE PRESIDENT [employer].CNM Work Phone: [facility] 07-09-2023 08:53-0400 Systolic blood pressure 122 mm[Hg] Ema Abarca VICE PRESIDENT [employer].CNM Work Phone: [facility] 07-02-2023 10:43-0400 Body weight 97.8 kg Ema Abarca VICE PRESIDENT [employer].CNM Work Phone: [facility] 07-02-2023 10:43-0400 Diastolic blood pressure 77 mm[Hg] Ema Abarca VICE PRESIDENT [employer].CNM Work Phone: [facility] 07-02-2023 10:43-0400 Systolic blood pressure 115 mm[Hg] Ema Abarca VICE PRESIDENT [employer].CNM Work Phone: [facility] 06-26-2023 09:52-0400 Body weight 98.52 kg Ema Abarca VICE PRESIDENT [employer].CNM Work Phone: [facility] 06-26-2023 09:52-0400 Diastolic blood pressure 79 mm[Hg] Ema Abarca VICE PRESIDENT [employer].CNM Work Phone: [facility] 06-26-2023 09:52-0400 Systolic blood pressure 114 mm[Hg] Ema Abarca VICE PRESIDENT [employer].CNM Work Phone: [facility] 06-11-2023 10:29-0400 Body weight 95.25 kg Matt Kramer MD Work Phone: [facility] 06-11-2023 10:29-0400 Diastolic blood pressure 76 mm[Hg] Matt Kramer MD Work Phone: [facility] 06-11-2023 10:29-0400 Systolic blood pressure 112 mm[Hg] Matt Kramer MD Work Phone: [facility] 05-28-2023 09:02-0400 Body weight 95.25 kg Brooke Suazo MD Work Phone: [facility] 05-28-2023 09:02-0400 Diastolic blood pressure 76 mm[Hg] Brooke Suazo MD Work Phone: [facility] 05-28-2023 09:02-0400 Systolic blood pressure 124 mm[Hg] Brooke Suazo MD Work Phone: [facility] 05-28-2023 08:02-0400 Body weight 95.62 kg Donna Anderson MD Work Phone: [facility] 05-28-2023 08:02-0400 Diastolic blood pressure 76 mm[Hg] Donna Andreson MD Work Phone: [facility] 05-28-2023 08:02-0400 Systolic blood pressure 124 mm[Hg] Donna Anderson MD Work Phone: [facility] 05-14-2023 10:39-0500 Body weight 91.63 kg Matt Kramer MD Work Phone: [facility] 05-14-2023 10:39-0500 Diastolic blood pressure 76 mm[Hg] Matt Kramer MD Work Phone: [facility] 05-14-2023 10:39-0500 Systolic blood pressure 124 mm[Hg] Matt Kramer MD Work Phone: [facility] 04-30-2023 10:05-0500 Body weight 90.72 kg Brooke Suazo MD Work Phone: [facility] 04-30-2023 10:05-0500 Diastolic blood pressure 68 mm[Hg] Brooke Suazo MD Work Phone: [facility] 04-30-2023 10:05-0500 Systolic blood pressure 106 mm[Hg] Brooke Suazo MD Work Phone: [facility] 02-21-2023 13:53-0500 Body weight 78.29 kg Denise Swanson MD Work Phone: [facility] 02-21-2023 13:53-0500 Diastolic blood pressure 60 mm[Hg] Denise Swanson MD Work Phone: [facility] 02-21-2023 13:53-0500 Systolic blood pressure 102 mm[Hg] Denise Swanson MD Work Phone: [facility] 01-07-2023 10:28-0400 Body weight 72.58 kg Brooke Suazo MD Work Phone: [facility] 01-07-2023 10:28-0400 Diastolic blood pressure 70 mm[Hg] rBooke Suazo MD Work Phone: [facility] 01-07-2023 10:28-0400 Systolic blood pressure 112 mm[Hg] Brooke Suazo MD Work Phone: [facility] 12-24-2022 10:59-0400 Body temperature 98.49 [degF] Raf Garland MD Work Phone: [facility] 12-24-2022 10:59-0400 Body weight 74.39 kg Raf Garland MD Work Phone: [facility] 12-24-2022 10:59-0400 Diastolic blood pressure 83 mm[Hg] Raf Garland MD Work Phone: [facility] 12-24-2022 10:59-0400 Heart rate 72 /min Raf Graland MD Work Phone: [facility] 12-24-2022 10:59-0400 Respiratory rate 20 /min Raf Garland MD Work Phone: [facility] 12-24-2022 10:59-0400 SaO2% (BldA) [Mass fraction] 100 % Raf Garland MD Work Phone: [facility] 12-24-2022 10:59-0400 Systolic blood pressure 135 mm[Hg] Raf Garland MD Work Phone: [facility] 10-19-2022 14:50-0400 Body temperature 97 [degF] Dr. Mary Myers Work Phone: [facility] 10-19-2022 14:50-0400 Diastolic blood pressure 67 mm[Hg] Dr. Mary Myers Work Phone: [facility] 10-19-2022 14:50-0400 Heart rate 50 /min Dr. Mary Myers Work Phone: [facility] 10-19-2022 14:50-0400 Respiratory rate 18 /min Dr. Mary Myers Work Phone: [facility] 10-19-2022 14:50-0400 SaO2% (BldA) [Mass fraction] 100 % Dr. Mary Myers Work Phone: [facility] 10-19-2022 14:50-0400 Systolic blood pressure 97 mm[Hg] Dr. Mary Myers Work Phone: [facility] 10-19-2022 12:53-0400 Body height 165.[address] Mary Myers Work Phone: [facility] 10-19-2022 12:53-0400 Body mass index (BMI) [Ratio] 26.4 kg/m2 Dr. Mary Myers Work Phone: [facility] 10-19-2022 12:53-0400 Body weight 71.[address] Mary Myers Work Phone: [facility] 09-24-2022 15:47-0400 Body height 165.1 cm No Primary Care Physician [facility] 09-24-2022 15:47-0400 Body mass index (BMI) [Ratio] 23.8 kg/m2 No Primary Care Physician [facility] 09-24-2022 15:47-0400 Body temperature 99 [degF] No Primary Care Physician [facility] 09-24-2022 15:47-0400 Body weight 64.8 kg No Primary Care Physician [facility] 09-24-2022 15:47-0400 Diastolic blood pressure 86 mm[Hg] No Primary Care Physician [facility] 09-24-2022 15:47-0400 Heart rate 69 /min No Primary Care Physician [facility] 09-24-2022 15:47-0400 Respiratory rate 14 /min No Primary Care Physician [facility] 09-24-2022 15:47-0400 SaO2% (BldA) [Mass fraction] 98 % No Primary Care Physician [facility] 09-24-2022 15:47-0400 Systolic blood pressure 121 mm[Hg] No Primary Care Physician [facility] 07-19-2022 15:03-0400 Body height 165.1 cm No Primary Care Physician [facility] 07-19-2022 15:03-0400 Body mass index (BMI) [Ratio] 23.6 kg/m2 No Primary Care Physician [facility] 07-19-2022 15:03-0400 Body temperature 95.6 [degF] No Primary Care Physician [facility] 07-19-2022 15:03-0400 Body weight 64.41 kg No Primary Care Physician [facility] 07-19-2022 15:03-0400 Diastolic blood pressure 84 mm[Hg] No Primary Care Physician [facility] 07-19-2022 15:03-0400 Heart rate 80 /min No Primary Care Physician [facility] 07-19-2022 15:03-0400 Respiratory rate 18 /min No Primary Care Physician [facility] 07-19-2022 15:03-0400 SaO2% (BldA) [Mass fraction] 97 % No Primary Care Physician [facility] 07-19-2022 15:03-0400 Systolic blood pressure 136 mm[Hg] No Primary Care Physician [facility] 07-19-2022 02:38-0400 Diastolic blood pressure 85 mm[Hg] No Primary Care Physician [facility] 07-19-2022 02:38-0400 Heart rate 108 /min No Primary Care Physician [facility] 07-19-2022 02:38-0400 Respiratory rate 14 /min No Primary Care Physician [facility] 07-19-2022 02:38-0400 SaO2% (BldA) [Mass fraction] 97 % No Primary Care Physician [facility] 07-19-2022 02:38-0400 Systolic blood pressure 124 mm[Hg] No Primary Care Physician [facility] 07-19-2022 01:30-0400 Body mass index (BMI) [Ratio] 21.4 kg/m2 No Primary Care Physician [facility] 07-19-2022 01:30-0400 Body temperature 97.6 [degF] No Primary Care Physician [facility] 07-19-2022 01:30-0400 Body weight 65.77 kg No Primary Care Physician [facility] 09-11-2020 20:00-0400 Diastolic blood pressure 91 mm[Hg] Deangelo Vides MD Work Phone: [employer] Work Phone: 09-11-2020 20:00-0400 Systolic blood pressure 105 mm[Hg] Deangelo Vides MD Work Phone: [employer] Work Phone: 09-11-2020 18:54-0400 Heart rate 115 /min Deangelo Vides MD Work Phone: [employer] Work Phone: 09-11-2020 18:54-0400 SaO2% (BldA) [Mass fraction] 100 % Deangelo Vides MD Work Phone: [employer] Work Phone: 09-11-2020 17:00-0400 Body temperature 98.01 [degF] Deangelo Vides MD Work Phone: [employer] Work Phone: 09-11-2020 16:43-0400 Body height 165.1 cm Deangelo Vides MD Work Phone: [employer] Work Phone: 09-11-2020 16:43-0400 Body mass index (BMI) [Ratio] 27.46 kg/m2 Deangelo Vides MD Work Phone: [employer] Work Phone: 09-11-2020 16:43-0400 Body weight 74.84 kg Deangelo Vides MD Work Phone: [employer] Work Phone: 09-11-2020 16:43-0400 Respiratory rate 16 /min Deangelo Vides MD Work Phone: [employer] Work Phone: 09-03-2020 08:19-0400 Body temperature 98.2 [degF] Nathan Torres MD Work Phone: [employer] Work Phone: 09-03-2020 08:19-0400 Diastolic blood pressure 74 mm[Hg] Nathan Torres MD Work Phone: [employer] Work Phone: 09-03-2020 08:19-0400 Heart rate 55 /min Nathan Torres MD Work Phone: [employer] Work Phone: 09-03-2020 08:19-0400 Respiratory rate 18 /min Nathan Torres MD Work Phone: [employer] Work Phone: 09-03-2020 08:19-0400 SaO2% (BldA) [Mass fraction] 100 % Nathan Torres MD Work Phone: [employer] Work Phone: 09-03-2020 08:19-0400 Systolic blood pressure 118 mm[Hg] Nathan Torres MD Work Phone: [employer] Work Phone: 09-02-2020 18:55-0400 Body height 165.1 cm Nathan Torres MD Work Phone: [employer] Work Phone: 09-02-2020 18:55-0400 Body mass index (BMI) [Ratio] 29.12 kg/m2 Nathan Torres MD Work Phone: [employer] Work Phone: 09-02-2020 18:55-0400 Body weight 79.38 kg Nathan Torres MD Work Phone: [employer] Work Phone: 11-28-2019 08:26-0400 Body Temperature 97.9 [degF] [facility] [employer] , [place] 11-28-2019 08:26-0400 BP Diastolic 70 mm[Hg] [facility] [employer] [place], [place] 11-28-2019 08:26-0400 BP Systolic 121 mm[Hg] [facility] [employer] [place] 11-28-2019 08:26-0400 Pulse (Heart Rate) 58 /min [facility] [employer] [place], [place] 11-28-2019 08:26-0400 Respiratory Rate 20 /min [facility] [employer] [facility], [place] 11-27-2019 13:25-0400 BMI (Body Mass Index) 31.76 kg/m2 N[facility] [employer] [place], [place] 11-27-2019 13:25-0400 Body weight 83.92 kg Nia [employer] [place], [place] 11-27-2019 13:25-0400 Height 162.6 cm [place] [employer] 11-27-2019 12:04-0400 Pulse Oximetry 100 % [place] Encounters Encounter Date Encounter Type Care Provider Facility Start: 01-20-2025 End: 01-20-2025 ambulatory ALCIDES MURCIA Facility:[id number] Start: 01-13-2025 End: 01-13-2025 ambulatory AMILCAR RIVERA Facility:[facility] Start: 12-10-2024 End: 12-10-2024 ambulatory AMILCAR RIVERA Facility:[facility] Start: 12-03-2024 End: 12-03-2024 ambulatory AMILCAR RIVERA Facility:[facility] Start: 11-26-2024 End: 11-26-2024 ambulatory AMILCAR RIVERA Facility:[facility] Start: 11-26-2024 End: 11-26-2024 Patient encounter procedure Janet Rodas DO Work Phone: Vascular Surgery Comment on above: Symptomatic varicose veins of both lower extremities (Primary Dx) Start: 11-25-2024 End: 11-25-2024 Office outpatient visit 15 minutes Raf Garland MD Work Phone: [facility] Comment on above: Hand eczema (Primary Dx) Start: 11-25-2024 End: 11-25-2024 ambulatory RAF GARLAND Facility:[facility] Start: 11-19-2024 End: 11-19-2024 ambulatory MIKHAIL MCKEON Facility:[id number] Start: 11-19-2024 End: 11-19-2024 Office outpatient visit 25 minutes Mikhail Mckeon MD Work Phone: [facility] Comment on above: Left-sided low back pain with left-sided sciatica, unspecified chronicity (Primary Dx); Spinal stenosis of lumbar region with neurogenic claudication Start: 11-17-2024 End: 11-17-2024 ambulatory Torsten Burrows MD Work Phone: Endocrinology Comment on above: Synthroid prescripti on Start: 11-17-2024 End: 11-17-2024 E-mail encounter from caregiver Torsten Burrows MD Work Phone: Endocrinology Start: 11-13-2024 End: 11-13-2024 Telephone encounter Torsten Burrows MD Work Phone: [facility] [place] Comment on above: Medication Preauthor ization (Denied Synthroid 25MCG tablets) Start: 11-12-2024 End: 11-12-2024 Telephone encounter Torsten Burrows MD Work Phone: [facility] [place] Comment on above: Medication Preauthor ization (PA- Synthroid 25MCG tablets ) Start: 11-12-2024 ambulatory AMILCAR RIVERA Facility: [facility] Start: 11-12-2024 End: 11-12-2024 Subsequent hospital visit by physician [facility] (I-Stat/1.5t) Work Phone: Radiology Comment on above: Spinal stenosis of l umbar region with neurogenic claudication [M48.062] Start: 11-11-2024 End: 11-11-2024 Telemedicine consultation with patient Torsten Burrows MD Work Phone: Endocrinology Start: 11-11-2024 End: 11-11-2024 ambulatory Torsten Burrows MD Work Phone: Endocrinology Comment on above: Hypothyroidism, unsp ecified type (Primary Dx) Start: 11-10-2024 End: 11-11-2024 Orders Only Janet Rodas DO Work Phone: Vascular Surgery Comment on above: Symptomatic varicose veins of both lower extremities (Primary Dx) Start: 11-04-2024 End: 11-04-2024 Refill Amilcar Rivera PA-C Work Phone: [facility] [place] Comment on above: Refill Request Start: 10-27-2024 End: 10-27-2024 Telemedicine consultation with patient Phyllis De Leon MD Work Phone: [facility] Start: 10-27-2024 End: 10-27-2024 ambulatory Phyllis De Leon MD Work Phone: [facility] Comment on above: Severe obesity (BMI >= 40) ([facility]) (Primary Dx); Anxiety and depression; Dietary counseling; Exercise counseling Start: 10-26-2024 End: 10-26-2024 ambulatory AMILCAR RIVERA Facility:[facility] Start: 10-06-2024 End: 10-06-2024 ambulatory AMILCAR RIVERA Facility:[facility] Start: 10-06-2024 End: 10-06-2024 Patient encounter procedure Janet Rodas DO Work Phone: Vascular Surgery Comment on above: Symptomatic varicose veins of both lower extremities (Primary Dx) Start: 10-01-2024 End: 10-01-2024 ambulatory AMILCAR RIVERA Facility:[facility] Start: 09-30-2024 End: 09-30-2024 Office outpatient visit 25 minutes Amilcar Rivera PA-C Work Phone: [facility] [place] Comment on above: Elevated TSH (Primar y Dx); Class 3 severe obesity with body mass index (BMI) of 40.0 to 44.9 in adult ([facility]); Lymphocytic colitis; Mild intermittent asthma without complication ([facility]); Tobacco use disorder Start: 09-30-2024 End: 09-30-2024 ambulatory AMILCAR RIVERA Facility:[facility] Start: 09-23-2024 End: 09-23-2024 Telemedicine consultation with patient Torsten Burrows MD Work Phone: Endocrinology Start: 09-23-2024 End: 09-23-2024 ambulatory Torsten Burrows MD Work Phone: Endocrinology Comment on above: Abnormal TSH; Hypothyroidism, unspecified type Start: 09-22-2024 End: 09-22-2024 ambulatory AMILCAR RIVERA Facility:[facility] Start: 09-22-2024 End: 09-22-2024 Patient encounter procedure Janet Rodas DO Work Phone: Vascular Surgery Comment on above: Symptomatic varicose veins of both lower extremities (Primary Dx); Leg mass, right; Venous (peripheral) insufficiency Start: 09-11-2024 ambulatory AMILCAR RIVERA Facility: [facility] Start: 09-11-2024 End: 09-11-2024 Subsequent hospital visit by physician [facility] Work Phone: Radiology Comment on above: RUQ pain [R10.11] Start: 09-08-2024 End: 09-08-2024 Patient encounter procedure Mikhail Mckeon MD Work Phone: [facility] Comment on above: Left-sided low back pain with left-sided sciatica, unspecified chronicity (Primary Dx); Neck pain on left side; Spinal stenosis of lumbar region with neurogenic claudication Start: 09-08-2024 End: 09-08-2024 ambulatory MIKHAIL MCKEON Facility:[id number] Start: 09-04-2024 End: 09-04-2024 Telephone encounter Emateresa Price APRN.CNP Work Phone: [facility] Comment on above: Appointment (Appoint ment) Start: 09-03-2024 End: 11-03-2024 Follow-up encounter Amilcar Rivera PA-C Work Phone: [facility] Start: 09-02-2024 End: 09-02-2024 ambulatory AMILCAR RIVERA Facility:[facility] Start: 09-02-2024 End: 09-02-2024 Subsequent hospital visit by physician [facility] (I-Stat/1.5t) Work Phone: Radiology Comment on above: Spinal stenosis of c ervical region [M48.02] Start: 08-26-2024 End: 08-26-2024 Office outpatient visit 25 minutes Amilcar Rivera PA-C Work Phone: [facility] Comment on above: Abnormal TSH (Primar y Dx); Hypothyroidism, unspecified type; RUQ pain; Leg mass, right Start: 08-26-2024 End: 08-26-2024 ambulatory AMILCAR RIVERA Facility:[facility] Start: 08-19-2024 ambulatory AMILCAR RIVERA Facility: [facility] Start: 08-19-2024 End: 08-19-2024 Subsequent hospital visit by physician [facility] Work Phone: Radiology Comment on above: Mass of leg, right [ R22.41] Start: 08-13-2024 End: 08-13-2024 ambulatory Shanel Phelps [facility] Physical Therapy Comment on above: Left-sided low back pain with left-sided sciatica, unspecified chronicity (Primary Dx); Neck pain on left side; Cervical radiculopathy Start: 08-11-2024 End: 08-11-2024 ambulatory AMILCAR RIVERA Facility:[facility] Start: 08-05-2024 End: 08-05-2024 Office outpatient new 45 minutes Amilcar Rivera PA-C Work Phone: [facility] [place] Comment on above: Headaches (Primary D x); Abnormal TSH; Heat intolerance; Dry mouth; Insomnia, unspecified type; Mass of leg, right Start: 08-05-2024 End: 08-05-2024 ambulatory SELF Facility:[facility] Start: 07-30-2024 End: 07-30-2024 ambulatory Shanel Bradford [facility] Physical [facility] Comment on above: Left-sided low back pain with left-sided sciatica, unspecified chronicity (Primary Dx); Neck pain on left side; Cervical radiculopathy Start: 07-22-2024 End: 07-22-2024 Telephone encounter Mikhail Mckeon MD Work Phone: [facility] Comment on above: Orders (MRI cervical spine/) Start: 07-14-2024 End: 07-14-2024 Subsequent hospital visit by physician [facility] Work Phone: [facility] Comment on above: Bilateral hip pain [ M25.551, M25.552] Start: 07-14-2024 End: 07-14-2024 Patient encounter procedure Mikhail Mckeon MD Work Phone: [facility] Comment on above: Left-sided low back pain with left-sided sciatica, unspecified chronicity (Primary Dx); Bilateral hip pain; Neck pain on left side; Spinal stenosis of lumbar region without neurogenic claudication Start: 07-14-2024 End: 07-14-2024 ambulatory MIKHAIL MCKEON Facility:[id number] Start: 07-13-2024 End: 07-13-2024 ambulatory Shanel Bradford [facility] Physical Therapy Comment on above: Left-sided low back pain with left-sided sciatica, unspecified chronicity (Primary Dx); Neck pain on left side; Cervical radiculopathy Start: 06-30-2024 End: 06-30-2024 ambulatory Shanel Bradford [facility] Therapy Comment on above: Neck pain on left si de (Primary Dx); Cervical radiculopathy Start: 06-24-2024 End: 06-24-2024 ambulatory Shanel Bradford [facility] Comment on above: Left-sided low back pain with left-sided sciatica, unspecified chronicity (Primary Dx); Neck pain on left side; Cervical radiculopathy Start: 06-16-2024 End: 06-16-2024 Patient encounter procedure Mikhail Mckeon MD Work Phone: [facility] Comment on above: Left-sided low back pain with left-sided sciatica, unspecified chronicity (Primary Dx); Neck pain on left side Start: 06-16-2024 End: 06-16-2024 ambulatory MIKHAIL MCKEON Facility:[id number] Start: 06-10-2024 End: 06-11-2024 Refill Mikhail Mckeon MD Work Phone: [facility] Comment on above: Refill Request Start: 05-25-2024 End: 05-25-2024 ambulatory Shanel Bradford [facility] Physical Therapy Comment on above: Left-sided low back pain with left-sided sciatica, unspecified chronicity (Primary Dx); Neck pain on left side; Cervical radiculopathy Start: 05-19-2024 End: 05-19-2024 E-mail encounter from caregiver Judie Holliday MD Work Phone: [facility] [place] Start: 05-19-2024 End: 05-19-2024 Patient encounter procedure Judie Holliday MD Work Phone: [facility] [place] Comment on above: Referral Start: 05-19-2024 End: 05-19-2024 Telephone encounter Judie Holliday MD Work Phone: [facility] [place] Comment on above: referral info given via mychart Gastro referral faxe d to [facility] Start: 05-18-2024 End: 07-18-2024 Follow-up encounter Angel Andersen LPN [facility] [place] Start: 05-15-2024 End: 05-15-2024 ambulatory JUDIE HOLLIDAY Facility:[facility] Start: 05-14-2024 End: 05-14-2024 Telephone encounter Judie Holliday MD Work Phone: [facility] [place] Comment on above: 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 (Primary Dx) Start: 05-14-2024 End: 05-14-2024 Patient encounter procedure Judie Holliday MD Work Phone: [facility] [place] Comment on above: Wellness examination (Primary Dx); Screening for depression; Encounter for screening examination for other mental health and behavioral disorders; Iron deficiency anemia secondary to inadequate dietary iron intake; Hand swelling; Mixed hyperlipidemia; Upper back pain; Colitis; Acute left-sided low back pain with left-sided sciatica; Vitamin D deficiency; Encounter for immunization; Obesity, Class II, BMI 35-39.9 Start: 05-14-2024 End: 05-14-2024 Patient encounter status Judie Holliday MD Work Phone: [facility] Start: 05-14-2024 End: 05-14-2024 ambulatory JUDIE HOLLIDAY Facility:[id number] Start: 05-14-2024 Encounter for genera l adult medical examination without abnormal findings JUDIE HOLLIDAY [facility] Start: 05-01-2024 End: 05-01-2024 Patient encounter procedure Mikhail Mckeon MD Work Phone: [facility] Comment on above: Upper back pain (Miladys fam Dx); Left-sided low back pain with left-sided sciatica, unspecified chronicity; Acute left-sided low back pain with left-sided sciatica; Neck pain on left side; Cervical radiculopathy Start: 05-01-2024 End: 05-01-2024 ambulatory MIKHAIL MCKEON Facility:[id number] Start: 05-01-2024 End: 05-01-2024 Subsequent hospital visit by physician [facility] Work Phone: [facility] Comment on above: Left-sided low back pain with left-sided sciatica, unspecified chronicity [M54.42] Neck pain on left si de [M54.2] Start: 04-22-2024 End: 04-22-2024 ambulatory JUDIE HOLLIDAY Facility:[facility] Start: 04-14-2024 End: 04-14-2024 Patient encounter procedure Judie Holliday MD Work Phone: [facility] [place] Comment on above: Upper back pain (Miladys afm Dx); Acute left-sided low back pain with left-sided sciatica; Screening for cardiovascular condition; Hyperglycemia; Iron deficiency anemia secondary to inadequate dietary iron intake; Vitamin D deficiency; Obesity, Class I, BMI 30-34.9 Start: 04-14-2024 End: 04-14-2024 ambulatory JUDIE HOLLIDAY Facility:[id number] Start: 03-04-2024 End: 03-04-2024 ambulatory [facility] Facility[facility] Start: 11-26-2023 End: 11-26-2023 Subsequent hospital visit by physician [facility] Work Phone: Radiology Comment on above: Subacute cough [R05. 2] Start: 11-26-2023 End: 11-26-2023 Patient encounter procedure Kimmie RUTH Work Phone: [facility] Comment on above: Sinobronchitis (Prim enrique Dx); Subacute cough Start: 09-02-2023 End: 09-02-2023 Patient encounter procedure Ema Abarca APRN.CNM Work Phone: OB/Gynecology Comment on above: care and examination (Primary Dx); Encounter for lithium monitoring; History of section; History of opioid abuse (HCC) Start: 08-28-2023 End: 08-28-2023 Emergency department patient visit Henry Eller Facility:[facility] Start: 08-27-2023 Telephone encounter Yoselyn Yu APRN.CNP Work Phone: [facility] Start: 08-27-2023 End: 08-27-2023 Patient encounter procedure Yoselyn Chandra APRN.CNP Work Phone: [facility] Comment on above: Localized swelling o f left lower leg (Primary Dx) Start: 08-20-2023 Telephone encounter Matt vega MD Work Phone: [address] [place] [address] Comment on above: Letter Start: 08-16-2023 ambulatory [facility] Work Phone: OB/Gynecology Comment on above: [employer] Start: 08-16-2023 E-mail encounter fro m caregiver [facility] Work Phone: OB/Gynecology Start: 08-02-2023 End: 08-02-2023 Patient encounter procedure Ema Abarca APRN.CNM Work Phone: OB/Gynecology Comment on above: Bipolar disorder, cu rrent episode depressed, severe, with psychotic features (HCC) (Primary Dx); Status post section; Tobacco use disorder Start: 07-16-2023 ambulatory Matt Garcia Work Phone: OB/Gynecology Start: 07-16-2023 Non-patient / Non-visit Dr. Espinoza Work Phone: [facility] Start: 07-16-2023 End: 07-18-2023 Evaluation and management of inpatient Dr. Mary Myers [facility] Work Phone: Start: 07-12-2023 Telephone encounter Denise barney MD Work Phone: OB/Gynecology Comment on above: Induction of Labor Start: 07-09-2023 End: 07-09-2023 Patient encounter procedure Ema Abarca APRN.CNM Work Phone: OB/Gynecology Comment on above: High-risk in third trimester (Primary Dx); Anemia complicating , third trimester; 38 weeks gestation of ; Supervision of other high risk pregnancies, third trimester; Tobacco use disorder; complicated by subutex maintenance, antepartum (HCC); Bipolar disorder, current episode depressed, severe, with psychotic features (HCC); History of posttraumatic stress disorder (PTSD); Polyhydramnios in third trimester complication, single or unspecified fetus Start: 07-08-2023 ambulatory Greta Stack[facility] Start: 07-08-2023 [facility] Population Health Na vigation Outreach (Ob/peds/) Start: 07-02-2023 End: 07-02-2023 Patient encounter procedure Ema Abarca APRN.CNM Work Phone: OB/Gynecology Comment on above: 37 weeks gestation o f (Primary Dx); High-risk in third trimester Start: 06-26-2023 End: 06-26-2023 Patient encounter procedure Clinical Genetics Laboratory Chief [facility] Work Phone: OB/Gynecology Comment on above: Encounter for ultras ound to check growth (Primary Dx); complicated by subutex maintenance, antepartum (HCC); Polyhydramnios in third trimester complication, single or unspecified fetus; 36 weeks gestation of 36 weeks gestation o f (Primary Dx); High-risk in third trimester; Anemia complicating , third trimester; complicated by subutex maintenance, antepartum (HCC) Start: 06-24-2023 E-mail encounter fro m caregiver Markcharlotte Ob L&D Work Phone: [facility] Start: 06-24-2023 Follow-up encounter Josef Ob L&D Work Phone: OB/Gynecology Comment on above: [employer] Follow up Start: 06-11-2023 End: 06-11-2023 Patient encounter procedure Matt Kramer MD Work Phone: OB/Gynecology Comment on above: 34 weeks gestation o f (Primary Dx); High-risk in third trimester; Anemia complicating , third trimester; complicated by subutex maintenance, antepartum (HCC) Start: 05-28-2023 End: 05-28-2023 Patient encounter procedure Donna Anderson MD Work Phone: Maternal Medicine Comment on above: Encounter for ultras ound to assess growth (Primary Dx); complicated by subutex maintenance, antepartum (HCC); Supervision of high risk in third trimester; 32 weeks gestation of High-risk in third trimester (Primary Dx); Anemia complicating , third trimester; complicated by subutex maintenance, antepartum (HCC); 32 weeks gestation of ; Maternal obesity syndrome in third trimester; Obesity, Class I, BMI 30-34.9 Start: 05-14-2023 End: 05-14-2023 Patient encounter procedure Matt Kramer MD Work Phone: OB/Gynecology Comment on above: High-risk in third trimester (Primary Dx); 30 weeks gestation of ; Pain in left hip Start: 05-01-2023 Telephone encounter Tenter RN Obstetrics/Gynecology Comment on above: PRAF Start: 04-30-2023 End: 04-30-2023 Patient encounter procedure Brooke Suazo MD Work Phone: OB/Gynecology Comment on above: Supervision of high risk in third trimester (Primary Dx); complicated by subutex maintenance, antepartum (HCC); 28 weeks gestation of ; Need for vaccination; General counseling and advice for contraceptive management Start: 04-18-2023 E-mail encounter fro m caregiver [facility] Work Phone: [facility] Start: 04-18-2023 Patient encounter procedure [facility] Work Phone: Allergy Comment on above: PLEASE READ before u pcoming allergy appointment Start: 02-21-2023 End: 02-21-2023 Patient encounter procedure Denise Swanson MD Work Phone: OB/Gynecology Comment on above: 18 weeks gestation o f (Primary Dx); High-risk in second trimester Start: 01-07-2023 End: 01-07-2023 Patient encounter procedure Brooke Suazo MD Work Phone: OB/Gynecology Comment on above: High-risk in first trimester (Primary Dx); complicated by subutex maintenance, antepartum (HCC); Penicillin allergy; Tobacco use disorder; Nausea and vomiting in ; Heartburn during in third trimester; Family history of thalassemia Encounter for (NT) n uchal translucency scan (Primary Dx); 12 weeks gestation of Start: 12-31-2022 Refill Ema Tevin SHER Work Phone: OB/Gynecology Comment on above: Refill Request Start: 12-24-2022 End: 12-24-2022 Patient encounter procedure Raf Garland MD Work Phone: [facility] Comment on above: Acute cough (Primary Dx); URI, acute; Asthma with acute exacerbation, unspecified asthma severity, unspecified whether persistent Start: 11-21-2022 End: 11-21-[address] Mary Myers Work Phone: [facility] Work Phone: Start: 11-21-2022 End: 11-21-[address] Mary Myers Work Phone: [facility]-Laboratory Work Phone: Start: 10-19-2022 Non-patient / Non-visit Dr. Espinoza Work Phone: [facility] Start: 10-19-2022 End: 10-19-2022 Admission to same day surgery center Dr. Mary Myers Work Phone: [facility]-Endoscopy Work Phone: Start: 10-05-2022 End: 10-05-[address] Mary Myers Work Phone: [facility]-Nuclear Medicine, [facility] Work Phone: Start: 09-24-2022 End: 09-24-2022 Emergency department patient visit No Primary Care Physician [facility]-Emergency Department Work Phone: Start: 09-14-2022 End: 09-14-2022 Patient encounter procedure No Primary Care Physician [facility] Work Phone: Start: 08-06-2022 End: 08-06-2022 ambulatory No Primary Care Physician [facility] Work Phone: Start: 08-06-2022 End: 08-06-2022 Patient encounter procedure No Primary Care Physician [facility]-Cat Scan, [facility] Start: 07-31-2022 End: 07-31-2022 Patient encounter procedure No Primary Care Physician [facility]-Laboratory, [facility] Start: 07-30-2022 End: 07-30-2022 Patient encounter procedure No Primary Care Physician [facility]-Ultrasound, [facility] Start: 07-19-2022 End: 07-19-2022 Patient encounter procedure No Primary Care Physician [facility] Internal Medicine Start: 07-19-2022 End: 07-19-2022 Emergency department patient visit No Primary Care Physician [facility]-Emergency Department Start: 07-16-2022 Non-patient / Non-visit No Miladys fam Care Physician [facility] Internal Medicine Start: 06-04-2022 ambulatory Marco Dunn Facility:[id number] Start: 05-30-2022 ambulatory Ms. Jose Loomis [facility] Facility:[id number] Start: 09-19-2021 End: 09-19-2021 Emergency department patient visit Klaus [facility] Start: 09-11-2020 End: 09-11-2020 Emergency department patient visit DEANGELO VIDES [facility] Start: 09-11-2020 End: 09-11-2020 Emergency department patient visit Deangelo Vides MD Work Phone: [facility] ED Start: 09-02-2020 End: 09-03-2020 Evaluation and management of inpatient ARYAN FITZGERALD [facility] Start: 09-02-2020 End: 09-03-2020 Evaluation and management of inpatient Nathan Torres MD Work Phone: [facility] Med Surg Unit Comment on above: Ischemic colitis (HC C) (Primary Dx); Elevated lactic acid level; Bacterial vaginosis Start: 05-27-2020 End: 05-27-2020 ambulatory [facility] Start: 11-27-2019 End: 11-28-2019 Evaluation and management of inpatient [facility] Start: 11-27-2019 End: 11-28-2019 Evaluation and management of inpatient Nia Nicholas Anna Work Phone: [facility] Start: 07-03-2019 End: 07-05-2019 Subsequent hospital visit by physician [facility] Comment on above: Arrived Start: 04-25-2019 End: 04-26-2019 Evaluation and management of inpatient EMMA ERVIN Facility:[facility] Start: 04-30-2018 End: 04-30-2018 Emergency department patient visit TERESA SUSAN Facility:[facility] Start: 04-25-2018 Patient encounter procedure KINGSTON Tinoco NORM Facility:[id number] Start: 01-17-2018 End: 01-17-2018 Emergency department patient visit COBY LAURA Facility:[id number] Start: 01-17-2018 End: 01-17-2018 Emergency department patient visit PROVIDER UNKNOWN Facility:[facility] Start: 12-31-2017 End: 01-01-2018 Emergency department patient visit ERAN STEVENS Facility:[id number] Start: 10-07-2017 End: 10-07-2017 Emergency department patient visit ABRAHAM Cunningham [facility]CH[facility] Start: 08-16-2017 End: 08-17-2017 Emergency department patient visit EMMA CALDERON Facility:[id number] Start: 08-16-2017 Ambulatory Facility:[id number] Start: 04-05-2017 End: 04-05-2017 Emergency department patient visit RADHA PLUNKETT Facility:[id number] Start: 04-02-2017 End: 04-02-2017 Emergency department patient visit JOIESURINDER SUAZO Facility:[id number] Start: 03-23-2017 End: 03-23-2017 Emergency department patient visit COLTON BEGUM Facility:[id number] Start: 11-06-2016 End: 11-06-2016 Emergency department patient visit OLE DYER Facility:[facility] Procedures Date Procedure Procedure Detail Performing Clinician Start: 11-12-2024 Mri spinal canal lumbar w/o contrast material Mikhail Mckeon MD Work Phone: Start: 09-02-2024 Mri spinal canal cervical w/o contrast matrl Mikhail Mckeon MD Work Phone: Start: 05-14-2024 Adult depression screening assessment Judie Holliday MD Work Phone: Start: 11-26-2023 Radiologic exam chest 2 views Kimmie RUTH Work Phone: Start: 09-02-2023 H/O: section History of section Ema Abarca [employer]CNM Work Phone: Start: 07-09-2023 URINE OB DIP B/O Ema Abarca [employer]C NM Work Phone: Start: 07-02-2023 URINE OB DIP B/O Ema Abarca [employer]C NM Work Phone: Start: 06-26-2023 Iadna streptococcus group b amplified probe tq Ema Abarca VICE [employer]CNM Work Phone: Start: 06-26-2023 URINE OB DIP B/O Ema Abarca [employer]C NM Work Phone: Start: 06-26-2023 Us preg uterus after 1st trimest 1/ gestation Brooke Suazo MD Work Phone: Start: 06-11-2023 URINE OB DIP B/O Matt Kramer MD Work Phone: Start: 05-28-2023 Us preg uterus after 1st trimest 03/18 gestation Brooke Suazo MD Work Phone: Start: 05-14-2023 URINE OB DIP B/O Matt Kramer MD Work Phone: Start: 04-30-2023 URINE OB DIP B/O Brooke Suazo MD Work Phone: Start: 02-21-2023 URINE OB DIP B/O Denise Swanson MD Work Phone: Start: 01-07-2023 URINE OB DIP B/O Brooke Suazo MD Work Phone: Start: 01-07-2023 Us nuchal translucency 1st gestation Lexis Greene [employer] Work Phone: Start: 12-24-2022 COVID & INFLUENZA A/B NAAT, ROUTINE Raf Garland MD Work Phone: Start: 10-05-[address]22 [address] empt[address] study Dr[address] Mary Myers Work Phone: Start: 08-06-2022 Computed tomography of abdomen and pelvis with contrast No Primary Care Physician Start: 07-31-2022 Giardia Antigen (GABRIELLA) No Primary Care Physician Start: 07-31-2022 Ova OR parasites identification No Primary Care Physician Start: 07-30-2022 Transvaginal echography No Primary Care Physician Start: 09-11-2020 Drug screen class list a Deangelo Garcia Work Phone: Start: 09-11-2020 Urinalysis microscopic only Deangelo Vides MD Work Phone: Start: 09-11-2020 Urnls dip stick/tablet rgnt auto w/o microscopy Deangelo Vides MD Work Phone: Start: 09-11-2020 SPECIMEN REJECTION Deangelo Vides MD Work Phone: Start: 09-11-2020 Gluc bld gluc mntr dev cleared fda spec home use Unknown Provider Result Start: 09-03-2020 Assay of lactate Nicorivkao Debbien-Leonides he VICE [employer]IDENT [employer] Work Phone: Start: 09-02-2020 Smr prim src wet mount nfct agt Ally RUTH Work Phone: Start: 09-02-2020 TRICHOMONAS BY EIA Ally RUTH Work Phone: Start: 09-02-2020 Ct abdomen & pelvis w/contrast material Ally RUTH Work Phone: Start: 09-02-2020 POCT VENOUS Nathan Torres MD Work Phone: Start: 09-02-2020 End: 09-02-2020 Comprehensive metabolic panel Ally RUTH Work Phone: Start: 09-02-2020 Urinalysis microscopic only Ally RUTH Work Phone: Start: 09-02-2020 Urnls dip stick/tablet rgnt auto w/o microscopy Ally RUTH Work Phone: Start: 11-28-2019 DISCHARGE PATIENT TERESA GONGORA Start: 11-28-2019 Blood count complete auto&auto difrntl wbc TERESA RECKO Start: 11-28-2019 Blood count complete auto&auto difrntl wbc Tarek A Dbouk Work Phone: Start: 11-27-2019 IP CONSULT TO SOCIAL WORK TERESA RECKO Start: 11-27-2019 DIET GENERAL TERESA RECKO Start: 11-27-2019 PLACE INTERMITTENT PNEUMATIC COMPRESSION DEVICE TERESA RECKO Start: 11-27-2019 SPECIMEN TO PATHOLOGY TERESA RECKO Start: 11-27-2019 AMBULATE PATIENT TERESA RECKO Start: 11-27-2019 ASSESS TERESA RECTAVO Start: 11-27-2019 FULL CODE TERESA SUEROKO Start: 11-27-2019 ICE TO AFFECTED AREA TERESA RECKO Start: 11-27-2019 IP CONSULT TO TERESA RECKO Start: 11-27-2019 NOTIFY PHYSICIAN (SPECIFY) TERESA RECKO Start: 11-27-2019 NURSING COMMUNICATION TERESA RECKO Start: 11-27-2019 PATIENT MAY SHOWER TERESA GONGORA Start: 11-27-2019 SALINE LOCK IV TERESA RECKO Start: 11-27-2019 STRAIGHT CATH TERESA RECKO Start: 11-27-2019 VITAL SIGNS TERESA RECKO Start: 11-27-2019 Drug screen class list a TERESA RECKO Start: 11-27-2019 Urnls dip stick/tablet rgnt auto w/o microscopy TERESA RECKO Start: 11-27-2019 Comprehensive metabolic panel TERESA RECKO Start: 11-27-2019 Iaad ia hepatitis b surface antigen TERESA RECKO Start: 11-27-2019 Immunoassay infectious agent antibody iris nos TERESA RECKO Start: 11-27-2019 TYPE AND SCREEN TERESA RECKO Start: 11-27-2019 Antibody screen Nia Castillo Start: 11-27-2019 Drug screen class list a Tarek A Dbouk Work Phone: Start: 11-27-2019 Urinalysis microscopic only Tarek A Dbouk Work Phone: Start: 11-27-2019 Urnls dip stick/tablet rgnt auto w/o microscopy [employer] Work Phone: Start: 11-27-2019 Blood count complete auto&auto difrntl wbc [employer] Indiakunal [employer] Work Phone: Start: 11-27-2019 Blood typing serologic abo [employer] Work Phone: Start: 11-27-2019 Comprehensive metabolic panel [employer] Work Phone: Start: 11-27-2019 Iaad ia hepatitis b surface antigen [employer] Work Phone: Start: 11-27-2019 Immunoassay infectious agent antibody iris nos [employer] Work Phone: Start: 11-27-2019 Syphilis test non-treponemal antibody qual [employer] Work Phone: Start: 07-03-2019 Us preg uterus after 1st trimest 1/ gestation Yahaira Radha Mayfield Work Phone: Start: 04-25-2019 ADMIT TO FLOOR [facility] Start: 04-25-2019 Antibody treponema pallidum [facility] Start: 04-25-2019 Bacteria identified in Urine by Culture [facility] Start: 04-25-2019 Blood count complete automated [facility] Start: 04-25-2019 Drug screen class list a [facility] Start: 04-25-2019 Iaad ia hepatitis b surface antigen [facility] Start: 04-25-2019 IP SOCIAL WORK SERVICE REQUEST [facility] Start: 04-25-2019 MEASURE WEIGHT [facility] Start: 04-25-2019 TYPE AND SCREEN [facility] Start: 04-25-2019 UPDATE ATTENDING PHYSICIAN [facility] Start: 04-25-2019 UPDATE TREATMENT TEAM RESIDENT [facility] Start: 04-25-2019 Urnls dip stick/tablet rgnt auto w/o microscopy [facility] Start: 04-25-2019 Us uterus limited 1/> fetuses [facility] Giardia Antigen (GABRIELLA) No [facility] Physician H/O: section Status pos t section Ema Abarca APRN.CNM Work Phone: Ova OR parasites identification No Primary Care Physician Plan of Treatment Date Care Activity Detail Author Start: 2057 Pneumococcal 0-64 years Vaccine (2 of 2 - PPSV23) Pneumococcal 0-64 years Vaccine (2 of 2 - PPSV23) [facility] [employer] Phone: Start: 2057 Pneumococcal 0-64 years Vaccine (2 of 2) Pneumococcal 0-64 years Vaccine (2 of 2) [facility] [employer] Phone: Start: 04-30-2033 Urine microalbumin profile DTaP,Tdap,Td Vaccine (6 - Td or Tdap) [facility] Start: 09-21-2029 DTaP/Tdap/Td vaccine (5 - Td or Tdap) DTaP/Tdap/Td vaccine (5 - Td or Tdap) [facility] [employer] Phone: Start: 09-21-2029 Urine microalbumin profile DTaP,Tdap,Td Vaccine (5 - Td or Tdap) [facility] Start: 12-24-2028 DTaP/Tdap/Td vaccine (3 - Td) DTaP/Tdap/Td vaccine (3 - Td) [place], [place] Start: 07-17-2027 HPV Testing HPV Testing [facility] Start: 07-17-2027 Pap Testing Pap Testing [facility] Start: 07-17-2027 Screening for malignant neoplasm of cervix [facility] Start: 09-30-2025 Annual PCP Team Chronic Disease Visit Annual PCP Team Chronic Disease Visit [facility] Start: 08-26-2025 Annual PCP Team Chronic Disease Visit Annual PCP Team Chronic Disease Visit [facility] Start: 05-17-2025 End: 05-17-2025 Patient encounter procedure 05/17/2025 11:20 AM EST Office Visit [place] [address] [place], [place] [id number] Judie Holliday MD [facility] [place] [address] wellness [address] [facility] Comment on above: wellness exam Start: 05-14-2025 End: 08-13-2025 25-hydroxyvitamin D3 [Mass/volume] in Serum or Plasma VITAMIN D 25 HYDROXY Lab Routine Vitamin D deficiency Expected: 05/14/2025, Expires: 08/13/2025 [facility] Comment on above: Expected: 05/14/2025, Expires: Start: 05-14-2025 Anxiety Screening Anxiety Screening [facility] Start: 05-14-2025 Depression Screening Depression Screening [facility] Start: 05-14-2025 End: 08-13-2025 Ferritin [Mass/volume] in Serum or Plasma FERRITIN Lab Routine Iron deficiency anemia secondary to inadequate dietary iron intake Expected: 05/14/2025, Expires: 08/13/2025 [facility] Comment on above: Expected: 05/14/2025, Expires: Start: 05-14-2025 End: 08-13-2025 Iron and Iron binding capacity panel - Serum or Plasma IRON AND TIBC Lab Routine Iron deficiency anemia secondary to inadequate dietary iron intake Expected: 05/14/2025, Expires: 08/13/2025 [facility] Comment on above: Expected: 05/14/2025, Expires: Start: 05-14-2025 End: 08-13-2025 Lipid 1996 panel - Serum or Plasma LIPID PANEL BASIC Lab Routine Mixed hyperlipidemia Expected: 05/14/2025, Expires: 08/13/2025 [facility] Comment on above: Expected: 05/14/2025, Expires: Start: 04-04-2025 Urine microalbumin profile DTaP,Tdap,Td Vaccine (2 - Td or Tdap) [facility] Start: 04-02-2025 End: 04-02-2025 Patient encounter procedure 04/02/2025 10:40 AM EST Office Visit [facility] [address] [place] [address] Amilcar Rivera PA-C [address] [place] [address] [facility] Comment on above: f/u 6 month Start: 02-23-2025 End: 02-23-2025 Patient encounter procedure 02/23/2025 11:30 AM EST Office Visit OB/Gynecology [address] [place] [address] Ema Abarca APRN.CN [address] [place] [address] Annual OB/Gynecology Comment on above: Annual Start: 02-18-2025 End: 02-18-2025 Patient encounter procedure [facility] Comment on above: 3 month follow up 3 month follow up Le ft-sided low back pain with left-sided sciatica Start: 01-13-2025 End: 01-13-2025 ambulatory 01/13/2025 9:[address] [facility] [address] [place] [address] Torsten Burrows MD [address] [place] [address] 9 wk f/u-hypothyroidism Endocrinology Comment on above: 9 wk f/u-hypothyroidism Start: 01-12-2025 End: 01-12-2025 Patient encounter procedure 01/12/2025 10:30 AM EDT Office Visit Vascular Surgery [address] [place] [address] Janet Rodas, DO [address] [place] [address] ONE MONTH FOLLOW UP TO EVLT Vascular Surgery Comment on above: ONE MONTH FOLLOW UP TO EVLT Start: 01-06-2025 End: 04-07-2025 Thyrotropin [Units/volume] in Serum or Plasma THYROID STIMULATING HORMONE Lab Routine Hypothyroidism, unspecified type Expected: 01/06/2025, Expires: 04/07/2025 [facility] Work Phone: Comment on above: Expected: 01/06/2025, Expires: Start: 01-06-2025 End: 04-07-2025 Thyroxine (T4) free [Mass/volume] in Serum or Plasma T4 FREE/FREE THYROXINE Lab Routine Hypothyroidism, unspecified type Expected: 01/06/2025, Expires: 04/07/2025 [facility] Comment on above: Expected: 01/06/2025, Expires: Start: 12-10-2024 End: 12-10-2024 Patient encounter procedure 12/10/2024 11:00 AM EDT Office Visit Vasculary Surgery [address] [place], [place] [id number] ONE WEEK EVLT SCAN Vasculary Surgery Comment on above: ONE WEEK EVLT SCAN Start: 12-03-2024 End: 12-03-2024 Patient encounter procedure Vascular Surgery Comment on above: ONE WEEK EVLT SCAN EVLT RIGHT LEG Start: 11-26-2024 End: 11-26-2024 Patient encounter procedure 11/26/2024 11:00 AM EDT Office Visit Vascular Surgery [address] [address] Janet Rodas, DO [address] [place] [address] EVLT LEFT LEG Vascular Surgery Comment on above: EVLT LEFT LEG Start: 11-19-2024 End: 11-19-2024 Patient encounter procedure [facility]cul[facility] Surgery Comment on above: DVT US discuss MRI results Start: 11-16-2024 Influenza vaccination Influenza Vaccine (#1) [facility] Start: 11-12-2024 End: 11-12-2024 Patient encounter procedure 11/12/2024 11:00 AM EDT Appointment Radiology [address] [place], [place] [address] Spinal stenosis of lumbar region with neurogenic claudication [M48.062] Radiology Comment on above: Spinal stenosis of lumbar region with ne urogenic claudication [M48.062] Start: 11-11-2024 End: 02-10-2025 Ferritin [Mass/volume] in Serum or Plasma FERRITIN Lab Routine Iron deficiency anemia secondary to inadequate dietary iron intake Expected: 11/11/2024, Expires: 02/10/2025 [facility] Comment on above: Expected: 11/11/2024, Expires: Start: 11-11-2024 End: 02-10-2025 Iron and Iron binding capacity panel - Serum or Plasma IRON AND TIBC Lab Routine Iron deficiency anemia secondary to inadequate dietary iron intake Expected: 11/11/2024, Expires: 02/10/2025 [facility] Comment on above: Expected: 11/11/2024, Expires: Start: 11-11-2024 End: 02-10-2025 Lipid 1996 panel - Serum or Plasma LIPID PANEL BASIC Lab Routine Mixed hyperlipidemia Expected: 11/11/2024, Expires: 02/10/2025 [facility] Work Phone: Comment on above: Expected: 11/11/2024, Expires: Start: 11-11-2024 End: 11-11-2024 ambulatory 11/11/2024 9:[address] [facility] [address] [place] [address] Torsten Burrows MD [address] [place] [address] 5 wk f/u-hypothyroidism Endocrinology Comment on above: 5 wk f/u-hypothyroidism Start: 11-06-2024 End: 11-06-2024 Patient encounter procedure 11/06/2024 11:30 AM EDT Office Visit OB/Gynecology [address] [place] [address] Ema Abarca APRN.[facility] [address] [place] [address] Annual OB/Gynecology Comment on above: Annual Start: 10-27-2024 End: 10-27-2024 ambulatory 10/27/2024 11:[address] [facility] [address] [place] [address] [place] [address] [place] [address] Abnormal TSH [R79.89]; Hypothyroidism, unspecified type [E03.9] Endocrinology [facility] Comment on above: Abnormal TSH [R79.89]; Hypothyroidism, u nspecified type [E03.9] Start: 10-06-2024 End: 10-06-2024 Patient encounter procedure 10/06/2024 10:00 AM EDT Office Visit Vascular Surgery [address] [place] [address] Janet Rodas, DO [address] [place] [address] follow up Vascular Surgery Comment on above: follow up Start: 10-01-2024 End: 10-01-2024 Patient encounter procedure 10/01/2024 10:00 AM EDT Office Visit Vasculary Surgery [address] [place] [address] Dx: Symptomatic varicose veins of both lower extremities [I83.893] Vasculary Surgery Comment on above: Dx: Symptomatic varicose veins of both l ower extremities [I83.893] Start: 09-30-2024 End: 09-30-2024 Patient encounter procedure 09/30/2024 10:40 AM EDT Office Visit [facility] [address] [place] [address] Amilcar Rivera PA-C [address] [place] [address] f/u 5 weeks [facility] Comment on above: f/u 5 weeks Start: 09-25-2024 End: 12-25-2024 Parathyrin.intact [Mass/volume] in Serum or Plasma PTH INTACT Lab Routine Abnormal TSH Hypothyroidism, unspecified type Expected: 09/25/2024 (Approximate), Expires: 12/25/2024 [facility] Work Phone: Comment on above: Expected: 09/25/2024 (Approximate), Expi res: 12/25/2024 Start: 09-25-2024 End: 12-25-2024 Thyrotropin [Units/volume] in Serum or Plasma THYROID STIMULATING HORMONE Lab Routine Abnormal TSH Hypothyroidism, unspecified type Expected: 09/25/2024 (Approximate), Expires: 12/25/2024 [facility] Comment on above: Expected: 09/25/2024 (Approximate), Expi res: 12/25/2024 Start: 09-23-2024 End: 12-23-2024 THYROGLOBULIN ANTIBODY THYROGLOBULIN ANTIBODY Lab Routine Abnormal TSH Hypothyroidism, unspecified type Expected: 09/23/2024, Expires: 12/23/2024 [facility] Comment on above: Expected: 09/23/2024, Expires: Start: 09-23-2024 End: 12-23-2024 THYROID PEROXIDASE ANTIBODY THYROID PEROXIDASE ANTIBODY Lab Routine Abnormal TSH Hypothyroidism, unspecified type Expected: 09/23/2024, Expires: 12/23/2024 [facility] Comment on above: Expected: 09/23/2024, Expires: Start: 09-23-2024 End: 12-23-2024 Thyrotropin [Units/volume] in Serum or Plasma THYROID STIMULATING HORMONE Lab Routine Abnormal TSH Hypothyroidism, unspecified type Expected: 09/23/2024, Expires: 12/23/2024 [facility] Work Phone: Comment on above: Expected: 09/23/2024, Expires: Start: 09-23-2024 End: 12-23-2024 Thyroxine (T4) free [Mass/volume] in Serum or Plasma T4 FREE/FREE THYROXINE Lab Routine Abnormal TSH Hypothyroidism, unspecified type Expected: 09/23/2024, Expires: 12/23/2024 [facility] Comment on above: Expected: 09/23/2024, Expires: Start: 09-23-2024 End: 09-23-2024 [facility] visit new patient 09/23/2024 8:[address] [facility] [address] [place] [address] Torsten Burrows MD [address] [place], [place] [address] New Patient Abnormal TSH [R79.89 (ICD-10-CM)]; Hypothyroidism, unspecified type [E03.9 (ICD-10-CM)] - Endocrinology Comment on above: New Patient Abnormal TSH [R79.89 (ICD-10 -CM)]; Hypothyroidism, unspecified type [E03.9 (ICD-10-CM)] - Start: 09-22-2024 End: 09-22-2024 Patient encounter procedure 09/22/2024 9:30 AM EDT Office Visit Vascular Surgery [address] [place], [place] [phone] Janet Rodas DO [address], [place] [id number] leg mass, dr. amilcar rivera of [facility] referring Vascular Surgery Comment on above: leg mass, dr. amilcar rivera of [facility] referring Start: 09-10-2024 End: 09-10-2024 Patient encounter procedure 09/10/2024 10:00 AM EDT Appointment Radiology [address] [place], [place] [phone] Spoke to pt, confirmed appt and prep. Radiology Comment on above: Spoke to pt, confirmed appt and prep. jk Start: 09-08-2024 End: 09-08-2024 Patient encounter procedure OB/Gynecology Comment on above: Annual discuss MRI results Start: 09-07-2024 End: 09-07-2024 Patient encounter procedure Radiology Comment on above: RUQ pain [R10.11] Spoke to pt, confirm ed appt and prep. jk Start: 09-02-2024 End: 09-02-2024 Patient encounter procedure Radiology Comment on above: Spinal stenosis of cervical region [M48. 02] Spinal stenosis of l umbar region without neurogenic claudication [M48.061] Start: 09-01-2024 End: 09-01-2024 Patient encounter procedure 09/01/2024 11:30 AM EDT Office Visit OB/Gynecology [address] [place] [address] Ema Abarca APRN.[facility] [address] [place] [address] Annual OB/Gynecology Comment on above: Annual Start: 08-26-2024 End: 11-25-2024 CBC W Auto Differential panel - Blood COMPLETE BLOOD COUNT AND DIFFERENTIAL Lab Routine RUQ pain Expected: 08/26/2024, Expires: 11/25/2024 [facility] Comment on above: Expected: 08/26/2024, Expires: Start: 08-26-2024 End: 11-25-2024 Comprehensive metabolic 2000 panel - Serum or Plasma COMPREHENSIVE METABOLIC PANEL Lab Routine RUQ pain Expected: 08/26/2024, Expires: 11/25/2024 [facility] Comment on above: Expected: 08/26/2024, Expires: Start: 08-26-2024 End: 11-25-2024 Lipase [Enzymatic activity/volume] in Serum or Plasma LIPASE Lab Routine RUQ pain Expected: 08/26/2024, Expires: 11/25/2024 [facility] Comment on above: Expected: 08/26/2024, Expires: Start: 08-26-2024 End: 08-26-2024 Patient encounter procedure 08/26/2024 10:40 AM EDT Office Visit [facility] [address] [place] [address] Amilcar Rivera PA-C [address] [place] [address] f/u 3 weeks [facility] Comment on above: f/u 3 weeks Start: 08-25-2024 End: 08-25-2024 Patient encounter procedure 08/25/2024 11:00 AM EDT Office Visit [facility] [address] [place] [phone] Mikhail Mckeon MD [address] [place] [address] discuss MRI results [facility] Comment on above: discuss MRI results Start: 08-19-2024 End: 08-19-2024 Patient encounter procedure 08/19/2024 9:15 AM EDT Appointment Radiology [address] [place] [address] Mass of leg, right [R22.41] Radiology Comment on above: Mass of leg, right [R22.41] Start: 08-13-2024 End: 08-13-2024 ambulatory 08/13/2024 9:15 AM EDT OT/PT/Speech Visit [facility] [address] [place] [address] Shanel Bradford PT low back pain [facility] Comment on above: low back pain Start: 08-05-2024 End: 11-04-2024 CBC W Auto Differential panel - Blood COMPLETE BLOOD COUNT AND DIFFERENTIAL Lab Routine Headaches Heat intolerance Dry mouth Expected: 08/05/2024, Expires: 11/04/2024 [facility] Work Phone: Comment on above: Expected: 08/05/2024, Expires: Start: 08-05-2024 End: 08-05-2024 Patient encounter procedure 08/05/2024 11:20 AM EDT [facility] [address] [place] [address] Amilcar Rivera PA-C [address] [place] [address] to get estab [facility] Comment on above: to get estab Start: 07-28-2024 End: 07-28-2024 Patient encounter procedure 07/28/2024 1:30 PM EDT Appointment Radiology [address] [place] [address] Spinal stenosis of cervical region [M48.02] Radiology Comment on above: Spinal stenosis of cervical region [M48. 02] Start: 07-28-2024 End: 07-28-2024 Patient encounter procedure Radiology Comment on above: Spinal stenosis of lumbar region without neurogenic claudication [M48.061]MRI LUMBAR SPINE WO IVCON Spinal stenosis of c ervical region [M48.02] Start: 07-14-2024 End: 07-14-2024 Patient encounter procedure 07/14/2024 9:45 AM EDT Office Visit [facility] [address] [place] [address] Mikhail Mckeon MD [address] [place] [address] 4 week f/u neck pain left side [facility] Comment on above: 4 week f/u neck pain left side Start: 07-10-2024 End: 07-10-2024 Follow-up encounter 07/10/2024 2:30 PM EDT OT/PT/Speech Visit [facility] [address] [place] [address] Shanel Bradford PT follow up [facility] Comment on above: follow up Start: 07-03-2024 End: 07-03-2024 Follow-up encounter 07/03/2024 1:00 PM EDT OT/PT/Speech Visit [facility] [address] [place] [address] Shanel Bradford PT follow up [facility] Comment on above: follow up Start: 06-24-2024 End: 06-24-2024 ambulatory 06/24/2024 1:45 PM EDT OT/PT/Speech Visit [facility] [address] [place] [address] Shanel Bradford, PT Priority: Routine [facility] Comment on above: Priority: Routine Start: 06-22-2024 End: 06-22-2024 OT/PT/Speech Visit 06/22/2024 3:30 PM EDT OT/PT/Speech Visit [facility] [address] [facility] [place] [address] Shanel Bradford, PT Per order Left-sided low back pain with left-sided sciatica, unspecified chronicity [M54.42] [facility] Comment on above: Per order "Left-sided low back pain with left-sided sciatica, unspecified chronicity [M54.42] Start: 06-16-2024 End: 06-16-2024 Patient encounter procedure 06/16/2024 9:45 AM EDT Office Visit [facility] [address] [place] [phone] [place] [address] [place] [phone] 6 week f/u back [facility] Comment on above: 6 week f/u back Start: 06-10-2024 End: 06-10-2024 ambulatory 06/10/2024 1:45 PM EDT OT/PT/Speech Visit [facility] [address] [facility] [place] [address] Shanel Bradford, PT Priority: Routine [facility] Comment on above: Priority: Routine Start: 05-20-2024 End: 05-20-2024 ambulatory 05/20/2024 8:30 AM EST OT/PT/Speech Visit [facility] [address] [facility] [place] [place] [address] Tae Daugherty PT [address] [facility] [place] [address] M54.42 (ICD-10-CM) - Left-sided low back pain with left-sided sciatica, unspecified chronicity [facility] Comment on above: M54.42 (ICD-10-CM) - Left-sided low back pain with left-sided sciatica, unspecified chronicity Start: 05-14-2024 End: 08-13-2024 Nuclear Ab [Presence] in Serum by Immunoassay [facility] BLOOD Lab Routine Hand swelling Expected: 05/14/2024, Expires: 08/13/2024 [facility] Comment on above: Expected: 05/14/2024, Expires: Start: 05-14-2024 End: 08-13-2024 OCCUPATIONAL HEALTH EXPOSURE PROFILE/PATIENT OCCUPATIONAL HEALTH EXPOSURE PROFILE/PATIENT Lab STAT Employee exposure to blood Expected: 05/14/2024, Expires: 08/13/2024 [facility] Work Phone: Comment on above: Expected: 05/14/2024, Expires: Start: 05-14-2024 End: 05-14-2024 Patient encounter procedure 05/14/2024 10:20 AM EST Office Visit [place] [address] [place], [place] [phone] Judie Holliday MD [address] [place] [phone] [facility] Comment on above: wellness Start: 04-14-2024 End: 07-14-2024 25-hydroxyvitamin D3 [Mass/volume] in Serum or Plasma VITAMIN D 25 HYDROXY Lab Routine Vitamin D deficiency Expected: 04/14/2024, Expires: 07/14/2024 [facility] Comment on above: Expected: 04/14/2024, Expires: Start: 04-14-2024 End: 07-14-2024 CBC W Auto Differential panel - Blood COMPLETE BLOOD COUNT AND DIFFERENTIAL Lab Routine Iron deficiency anemia secondary to inadequate dietary iron intake Expected: 04/14/2024, Expires: 07/14/2024 [facility] Comment on above: Expected: 04/14/2024, Expires: Start: 04-14-2024 End: 07-14-2024 Comprehensive metabolic 2000 panel - Serum or Plasma COMPREHENSIVE METABOLIC PANEL Lab Routine Screening for cardiovascular condition Expected: 04/14/2024, Expires: 07/14/2024 [facility] Work Phone: Comment on above: Expected: 04/14/2024, Expires: Start: 04-14-2024 End: 07-14-2024 Ferritin [Mass/volume] in Serum or Plasma FERRITIN Lab Routine Iron deficiency anemia secondary to inadequate dietary iron intake Expected: 04/14/2024, Expires: 07/14/2024 [facility] Comment on above: Expected: 04/14/2024, Expires: Start: 04-14-2024 End: 07-14-2024 Hemoglobin A1c in Blood HEMOGLOBIN A1C Lab Routine Hyperglycemia Expected: 04/14/2024, Expires: 07/14/2024 [facility] Comment on above: Expected: 04/14/2024, Expires: Start: 04-14-2024 End: 07-14-2024 Iron and Iron binding capacity panel - Serum or Plasma IRON AND TIBC Lab Routine Iron deficiency anemia secondary to inadequate dietary iron intake Expected: 04/14/2024, Expires: 07/14/2024 [facility] Comment on above: Expected: 04/14/2024, Expires: Start: 04-14-2024 End: 07-14-2024 Lipid 1996 panel - Serum or Plasma LIPID PANEL BASIC Lab Routine Screening for cardiovascular condition Expected: 04/14/2024, Expires: 07/14/2024 [facility] Comment on above: Expected: 04/14/2024, Expires: Start: 11-17-2023 Covid-19 Vaccine ( season) Covid-19 Vaccine () [facility] Start: 11-17-2023 Covid-19 Vaccine () Covid-19 Vaccine () [facility] Start: 11-17-2023 Influenza vaccination [facility] Start: 09-02-2023 End: 09-02-2023 Patient encounter procedure 09/02/2023 2:45 PM EDT Office Visit OB/Gynecology [address] [place] [address] Ema Abarca APRN.[facility] [address] [place] [address] PP OB/Gynecology Comment on above: PP Start: 07-18-2023 Patient discharge [facility] Start: 07-17-2023 [facility] Start: 07-17-2023 Application of abdominal corset [facility] Start: 07-16-2023 Application of intermittent pneumatic compression device [facility] Start: 07-16-2023 End: 07-16-2023 [facility] Start: 07-16-2023 End: 07-16-2023 Notification of physician [facility] Start: 07-16-2023 Administration of medication [facility] Start: 07-16-2023 Ambulation therapy management [facility] Start: 07-16-2023 Application of device [facility] Start: 07-16-2023 Application of ice collar, cap or bag [facility] Start: 07-16-2023 Application of intermittent pneumatic compression device [facility] Start: 07-16-2023 Assessment of risk of venous thromboembolism [facility] Start: 07-16-2023 Catheterization of vein [facility] Start: 07-16-2023 Deep breathing and coughing exercises [facility] Start: 07-16-2023 Exercises [facility] Start: 07-16-2023 Introduction of urinary catheter [facility] Start: 07-16-2023 Measuring intake and output [facility] Start: 07-16-2023 Procedure discontinued [facility] Start: 07-16-2023 Provision of activity privileges [facility] Start: 07-16-2023 Skin care [facility] Start: 07-16-2023 Vital signs measurements [facility] Start: 07-16-2023 Wound care [facility] Start: 07-16-2023 Application of abdominal corset [facility] Start: 07-16-2023 Documentation procedure [facility] Start: 07-16-2023 End: 07-16-2023 Patient encounter procedure OB/Gynecology Comment on above: NST OB Start: 07-16-2023 Admission procedure [facility] Start: 07-16-2023 Provision of activity privileges [facility] Start: 07-16-2023 Notification of physician [facility] Start: 07-16-2023 Consultation [facility] Start: 07-09-2023 End: 07-09-2023 Patient encounter procedure OB/Gynecology Comment on above: NST OB Start: 05-28-2023 End: 08-27-2023 CBC panel - Blood by Automated count CBC Lab Routine High-risk in third trimester Anemia complicating , third trimester complicated by subutex maintenance, antepartum (HCC) 32 weeks gestation of Expected: 05/28/2023, Expires: 08/27/2023 [facility] Work Phone: Comment on above: Expected: 05/28/2023, Expires: 4 Start: 05-28-2023 End: 05-27-2024 OBSTETRIC ULTRASOUND WHI OBSTETRIC ULTRASOUND WHI Anc Imaging Routine complicated by subutex maintenance, antepartum (HCC) Expected: 05/28/2023, Expires: 05/27/2024 [facility] Work Phone: Comment on above: Expected: 05/28/2023, Expires: 5 Start: 04-30-2023 End: 04-30-2024 OBSTETRIC ULTRASOUND WHI OBSTETRIC ULTRASOUND [facility] Anc Imaging Routine complicated by subutex maintenance, antepartum (HCC) Supervision of high risk in third trimester Expected: 04/30/2023, Expires: 04/30/2024 [facility] Work Phone: Comment on above: Expected: 04/30/2023, Expires: 5 Start: 03-18-2023 Behavioral Health Screening Behavioral Health Screening [facility] Start: 03-18-2023 Depression Assessment Depression Assessment [facility] Start: 01-07-2023 End: 04-08-2023 Chromosome 21 trisomy [Presence] in Blood or Tissue by Cytogenetics [facility] Work Phone: Comment on above: Expected: 01/07/2023, Expires: 4 Start: 01-07-2023 End: 04-08-2023 HEMOGLOBIN EVALUATION CASCADE [facility] Work Phone: Comment on above: Expected: 01/07/2023, Expires: 4 Start: 01-07-2023 End: 01-08-2024 OBSTETRIC ULTRASOUND WHI OBSTETRIC ULTRASOUND [facility] Anc Imaging Routine High-risk in first trimester complicated by subutex maintenance, antepartum (HCC) Expected: 01/07/2023, Expires: 01/08/2024 [facility] Work Phone: Comment on above: Expected: 01/07/2023, Expires: 4 Start: 11-16-2022 Covid-19 Vaccine () Covid-19 Vaccine () [facility] Start: 11-16-2022 Influenza vaccination Influenza Vaccine (#1) [facility] Start: 10-19-2022 Colonoscopy w/biopsy single/multiple COLONOSCOPY AND BIOPSY [facility] Start: 10-19-2022 Colsc flx w/rmvl of tumor polyp lesion snare tq COLONOSCOPY W/LESION REMOVAL [facility] Start: 10-19-2022 Egd transoral biopsy single/multiple EGD BIOPSY SINGLE/MULTIPLE [facility] Start: 10-19-2022 Patient discharge [facility] Start: 07-31-2022 Inf agent det nucleic acid clostridium amp probe C DIFF AMPLIFIED PROBE [facility] Start: 07-19-2022 Patient referral [facility] Work Phone: Start: 06-30-2022 Cervical cancer screen [facility]ervical cancer screen [facility] Start: 06-30-2022 Screening for malignant neoplasm of cervix Cervical cancer screen [facility] Start: 03-18-2022 Depression Assessment Depression Assessment [facility] Start: 11-16-2021 Influenza vaccination Flu vaccine (Season Ended) [facility] Work Phone: Comment on above: Postponed from 11/16/2020 (Patient Refus ed) Start: 11-17-2019 [facility]enza [facility] Start: 07-29-2019 End: 07-29-2019 Initial 07/29/2019 Initial Obstetrics and Gynecology Yahaira Mayfield MD [address] [place] [address] [facility] Start: 06-22-2019 HPV Vaccine (1 - 3-dose SCDM series) HPV Vaccine (1 - 3-dose SCDM series) [facility] Start: 05-25-2019 Hepatitis A vaccine (3 of 3 - Hep A Twinrix risk 3-dose series) Hepatitis A vaccine (3 of 3 - Hep A Twinrix risk 3-dose series) [place], [place] Start: 04-19-2018 Pneumococcal vaccination [facility] Start: 01-06-2016 Hepatitis B Vaccine (3 of 3 - 3-dose series) Hepatitis B Vaccine (3 of 3 - 3-dose series) [facility] Start: 12-09-2015 Hepatitis B vaccine (2 of 3 - Hep B Twinrix risk 3-dose series) Hepatitis B vaccine (2 of 3 - Hep B Twinrix risk 3-dose series) [place], [place] Start: 2010 Anxiety Screening Anxiety Screening [facility] Start: 2010 Depression Screening Depression Screening [facility] Start: 1998 Pneumococcal vaccination Pneumococcal Vaccine (1 - PCV) [facility] Start: 1993 Varicella vaccine (1 of 2 - 2-dose childhood series) Varicella vaccine (1 of 2 - 2-dose childhood series) [place], [place] Start: 1992 Hepatitis B Vaccine (1 of 3 - 3-dose series) Hepatitis B Vaccine (1 of 3 - 3-dose series) [facility] End: 09-02-2020 C.trachomatis N.gonorrhoeae DNA C.trachomatis N.gonorrhoeae DNA Microbiology Routine One Time for 1 Occurrences starting 09/02/2020 until 09/02/2020 [facility] Phone: Comment on above: One Time for 1 Occurrences starting 08/16 until 09/02/2020 End: 09-03-2020 CALPROTECTIN STOOL CALPROTECTIN STOOL Lab Routine One Time for 1 Occurrences starting 09/03/2020 until 09/03/2020 [facility] Phone: Comment on above: One Time for 1 Occurrences starting 08/16 until 09/03/2020 CBC W Auto Different ial panel - Blood CBC auto differential Lab Routine Daily until discontinued starting 09/03/2020, 1 completed [facility] Phone: Comment on above: Daily until discontinued starting 2020, 1 completed End: 09-11-2020 CBC W Auto Differential panel - Blood CBC Auto Differential Lab STAT One Time for 1 Occurrences starting 09/11/2020 until 09/11/2020 [facility] Phone: Comment on above: One Time for 1 Occurrences starting 08/17 until 09/11/2020 End: 09-03-2020 Clostridium Difficile Toxin/Antigen Clostridium Difficile Toxin/Antigen Microbiology Routine 48 HRS for 48 Hours starting 09/03/2020 until 09/03/2020 [facility] Phone: Comment on above: 48 HRS for 48 Hours starting 08/16 until 09/03/2020 End: 09-11-2020 Comprehensive metabolic 2000 panel - Serum or Plasma Comprehensive Metabolic Panel Lab STAT One Time for 1 Occurrences starting 09/11/2020 until 09/11/2020 [facility] Phone: Comment on above: One Time for 1 Occurrences starting 08/17 until 09/11/2020 Comprehensive Metabo lic Panel w/ Reflex to MG Comprehensive Metabolic Panel w/ Reflex to MG Lab Routine Daily until discontinued starting 09/03/2020, 1 completed [facility] Phone: Comment on above: Daily until discontinued starting 2020, 1 completed End: 09-02-2020 Culture, Urine Culture, Urine Microbiology STAT Once for 1 Occurrences starting 09/02/2020 until 09/02/2020 [facility] Phone: Comment on above: Once for 1 Occurrences starting 09/03/19 until 09/02/2020 Culture, Urine [facility] Phone: End: 09-11-2020 Culture, Urine Culture, Urine Microbiology STAT Once for 1 Occurrences starting 09/11/2020 until 09/11/2020 [facility] Phone: Comment on above: Once for 1 Occurrences starting 09/12/19 until 09/11/2020 Elastase, pancreatic (el-1), fecal; quantitative [facility] End: 09-11-2020 Ethanol [Mass/volume] in Serum or Plasma Ethanol Lab STAT One Time for 1 Occurrences starting 09/11/2020 until 09/11/2020 [facility] Phone: Comment on above: One Time for 1 Occurrences starting 08/17 until 09/11/2020 Fat [Presence] in Stool [facility] End: 08-06-2023 nonstress test NON-STRESS TEST Procedures Routine High-risk in third trimester complicated by subutex maintenance, antepartum (HCC) 32 weeks gestation of Maternal obesity syndrome in third trimester Obesity, Class I, BMI 30-34.9 Once per week for 4 Occurrences starting 05/28/2023 until 08/06/2023 [facility] Work Phone: Comment on above: Once per week for 4 Occurrences starting 05/28/2023 until 08/06/2023 End: 09-03-2020 Gastrointestinal Panel by DNA Gastrointestinal Panel by DNA Microbiology Routine One Time for 1 Occurrences starting 09/03/2020 until 09/03/2020 [facility] Phone: Comment on above: One Time for 1 Occurrences starting 08/16 until 09/03/2020 End: 09-11-2020 Hemoglobin A1c/Hemoglobin.total in Blood Hemoglobin A1C Lab STAT One Time for 1 Occurrences starting 09/11/2020 until 09/11/2020 [facility] Phone: Comment on above: One Time for 1 Occurrences starting 08/17 until 09/11/2020 End: 09-03-2020 HIGH SENSITIVITY CRP HIGH SENSITIVITY CRP Lab Routine One Time for 1 Occurrences starting 09/03/2020 until 09/03/2020 [facility] Phone: Comment on above: One Time for 1 Occurrences starting 08/16 until 09/03/2020 HIV 1+2 Ab+HIV1 p24 Ag [Presence] in Serum or Plasma by Immunoassay [facility] Lactoferrin [Presenc e] in Stool by Immunoassay [facility] End: 08-21-2025 MR Cervical spine WO contrast MRI CERVICAL SPINE WO IVCON Radiology Routine Spinal stenosis of cervical region 1 Occurrences starting 07/22/2024 until 08/21/2025 [facility] [place] Work Phone: Comment on above: 1 Occurrences starting 07/22/2024 until 08/21/2025 End: 08-13-2025 MR Lumbar spine WO contrast MRI LUMBAR SPINE WO IVCON Radiology Routine Spinal stenosis of lumbar region without neurogenic claudication 1 Occurrences starting 07/14/2024 until 08/13/2025 [facility] Comment on above: 1 Occurrences starting 07/14/2024 until 08/13/2025 End: 10-08-2025 MR Lumbar spine WO contrast MRI LUMBAR SPINE WO IVCON Radiology Routine Spinal stenosis of lumbar region with neurogenic claudication 1 Occurrences starting 09/08/2024 until 10/08/2025 [facility] [place] Work Phone: Comment on above: 1 Occurrences starting 09/08/2024 until 10/08/2025 Oxygen therapy [[facility] Data Set] Initiate Oxygen Therapy Protocol Respiratory Care Routine Daily until discontinued starting 09/02/2020 [employer] Work Phone: Comment on above: Daily until discontinued starting 2020 Patient Education [facility] Work Phone: Patient referral [facility] Work Phone: Procedure [facility] Protein measurement [facility] Radionuclide gastric emptying study [facility] End: 09-03-2020 SEDIMENTATION RATE SEDIMENTATION RATE Lab Routine One Time for 1 Occurrences starting 09/03/2020 until 09/03/2020 [employer] Work Phone: Comment on above: One Time for 1 Occurrences starting 08/16 until 09/03/2020 Tobacco use cessatio n education [facility] End: 09-25-2025 US Abdomen RUQ US ABD RIGHT UPPER QUADRANT Radiology Routine RUQ pain 1 Occurrences starting 08/26/2024 until 09/25/2025 [facility] Comment on above: 1 Occurrences starting 08/26/2024 until 09/25/2025 US Abdomen RUQ US ABD RIGHT UPP ER QUADRANT Radiology Routine RUQ pain 09/11/2024 10:47 AM EDT [facility] [place] Work Phone: US Extremity - right US EXTREMIT Y MASS/FLUID COLLECTION RIGHT Radiology Routine Mass of leg, right 08/19/2024 10:00 AM EDT [facility] [place] Work Phone: End: 11-11-2025 US Lower extremity vein US LEG VEIN DVT UNL VAS LAB Vascular Lab Routine Symptomatic varicose veins of both lower extremities 1 Occurrences starting 11/11/2024 until 11/11/2025 [facility] [place] Work Phone: Comment on above: 1 Occurrences starting 11/11/2024 until 11/11/2025 End: 05-31-2025 XR Cervical spine AP and Lateral and oblique XR CERV OTHER 4V AP/LAT/OBL Radiology Routine Neck pain on left side 1 Occurrences starting 05/01/2024 until 05/31/2025 [facility] Comment on above: 1 Occurrences starting 05/01/2024 until 05/31/2025 XR Cervical spine AP and Lateral and oblique XR CERV OTHER 4V AP/LAT/OBL Radiology Routine Neck pain on left side 05/01/2024 10:56 AM [facility] End: 08-13-2025 XR HIP BILATERAL 5V PEL/AP/LAT EACH HIP XR HIP BILATERAL 5V PEL/AP/LAT EACH HIP Radiology Routine Bilateral hip pain 1 Occurrences starting 07/14/2024 until 08/13/2025 [facility] [place] Work Phone: Comment on above: 1 Occurrences starting 07/14/2024 until 08/13/2025 XR HIP BILATERAL 5V PEL/AP/LAT EACH HIP XR HIP BILATERAL 5V PEL/AP/LAT EACH HIP Radiology Routine Bilateral hip pain 07/14/2024 10:14 AM [facility] End: 05-30-2025 XR Lumbar spine AP and Lateral and oblique XR LUMBAR PARS DEFECT 4V AP/LAT/BOTH OBL Radiology Routine Left-sided low back pain with left-sided sciatica, unspecified chronicity 1 Occurrences starting 04/30/2024 until 05/30/2025 [facility] [place] Work Phone: Comment on above: 1 Occurrences starting 04/30/2024 until 05/30/2025 XR Lumbar spine AP a nd Lateral and oblique XR LUMBAR PARS DEFECT 4V AP/LAT/BOTH OBL Radiology Routine Left-sided low back pain with left-sided sciatica, unspecified chronicity 05/01/2024 10:56 AM EST [facility] End: 05-30-2025 XR Thoracic spine AP and Lateral and Swimmers XR THORACIC GENERAL 3V AP/LAT/SWIMMERS Radiology Routine Upper back pain 1 Occurrences starting 04/30/2024 until 05/30/2025 [facility] Comment on above: 1 Occurrences starting 04/30/2024 until 05/30/2025 XR Thoracic spine AP and Lateral and Swimmers XR THORACIC GENERAL 3V AP/LAT/SWIMMERS Radiology Routine Upper back pain 05/01/2024 10:56 AM [facility] Immunizations Immunization Date Immunization Notes Care Provider Luc[facility] 05-14-2024 influenza, seasonal, injectable Judie Holliday MD Work Phone: [facility] 05-14-2024 influenza virus vacc ine, unspecified formulation Amilcar Rivera PA-C Work Phone: [facility] 04-30-2023 tetanus toxoid, redu adis diphtheria toxoid, and acellular pertussis vaccine, adsorbed Brooke Suazo MD Work Phone: [facility] 04-14-2021 Covid (Pfizer) No Primary Ca re Physician [facility] 01-04-2021 Influenza, injectabl e, Madin [place] Canine Kidney, preservative free, quadrivalent No Primary Care Physician [facility] 01-04-2021 influenza virus vacc ine, unspecified formulation Raf Garland MD Work Phone: [facility] 08-01-2020 Covid ([employer]) No Primary Care Physician [facility] 11-27-2019 diphtheria, tetanus toxoids and acellular pertussis vaccine, unspecified formulation Nia Castillo [facility] [place] [place] 09-22-2019 tetanus toxoid, redu adis diphtheria toxoid, and acellular pertussis vaccine, adsorbed No Primary Care Physician [facility] 12-24-2018 hepatitis A vaccine, adult dosage No Primary Care Physician [facility] 12-24-2018 tetanus toxoid, redu adis diphtheria toxoid, and acellular pertussis vaccine, adsorbed No Primary Care Physician [facility] 11-24-2018 influenza, injectabl e, quadrivalent, preservative free [place] 1 [facility] 11-24-2018 influenza, seasonal, injectable No Primary Care Physician [facility] 01-02-2018 influenza virus vacc ine, unspecified formulation [place] 1 [facility] [place] [facility] [place] 01-02-2018 influenza, injectabl e, quadrivalent, contains preservative [place] 1 [facility] Work Phone: 01-02-2018 influenza, injectabl e, quadrivalent, preservative free Dr. Mary Myers Work Phone: [facility] 01-02-2018 influenza, seasonal, injectable No Primary Care Physician [facility] 04-19-2017 pneumococcal polysaccharide vaccine, 23 valent [place] 1 [facility] 03-28-2017 influenza, injectabl e, quadrivalent, preservative free [place] 1 [facility] 03-28-2017 influenza, seasonal, injectable No Primary Care Physician [facility] 03-22-2017 Influenza Vaccine, unspecified formulation [place] 1 [facility] [place] [place] 03-22-2017 influenza virus vacc ine, unspecified formulation [place] 1 [facility] 03-22-2017 influenza, injectabl e, quadrivalent, preservative free Dr. Mary Myers Work Phone: [facility] 03-22-2017 influenza, seasonal, injectable No Primary Care Physician [facility] 11-11-2015 hepatitis A and hepatitis B vaccine [place] 1 [facility] 04-04-2015 tetanus toxoid, redu adis diphtheria toxoid, and acellular pertussis vaccine, adsorbed [place] 1 [facility] 08-26-2009 hepatitis A vaccine, pediatric/adolescent dosage, 2 dose schedule Brooke Suazo MD Work Phone: [facility] Work Phone: 08-26-2009 hepatitis B vaccine, pediatric or pediatric/adolescent dosage Brooke Suazo MD Work Phone: [facility] Work Phone: 08-26-2009 meningococcal polysaccharide (groups A, C, Y and W-135) diphtheria toxoid conjugate vaccine (MCV4P) Brooke Suazo MD Work Phone: [facility] Work Phone: 08-26-2009 poliovirus vaccine, inactivated Brooke Suazo MD Work Phone: [facility] Work Phone: 08-26-2009 tetanus toxoid, redu adis diphtheria toxoid, and acellular pertussis vaccine, adsorbed Brooke Suazo MD Work Phone: [facility] Work Phone: 10-25-1999 measles, mumps and rubella virus vaccine [place] 1 [facility] Payers Date Payer Category Payer Self-pay 2022 Medicaid [id number] 2018 Unknown [facility] [facility] MEDICA[facility] xxxxxxxxxxx 2018-Present [phone] CLAIMS DEPARTMENT [address] [place] [address] xxxxxxxxxxx [id number] 2018 Unknown [id number] 2014 Unknown [id number] 1992 Unknown [id number] 1992 Unknown [id number] 1992 Unknown [id number] 1992 Unknown [id number] 1992 Unknown [id number] 1992 Unknown [id number] 1992 Unknown [id number] 1992 Unknown [id number] 1992 Unknown [id number] 1992 Unknown [id number] 1992 Unknown [id number] 1992 Unknown [id number] 1992 Unknown [id number] Unknown [employer] Unknown [id number] Unknown [id number] Unknown [id number] Unknown [id number] Unknown [id number] Unknown [id number] Social History Date Type Detail Facility Start: 07-01-2019 End: 08-05-2024 Tobacco smoking status NHIS Current every day smoker [facility]: 07-01-2019 End: 06-22-2024 Cigarettes smoked current (pack per day) - Reported [facility] Start: 07-01-2019 End: 11-26-2024 Alcohol intake Current non-drinker of alcohol (finding) [place], [place] Start: 06-08-2019 History SDOH Financial 5 [place] Start: 06-08-2019 History SDOH Food Worry 1 [place] Start: 06-08-2019 History SDOH Transpo rt Med 2 [place] Start: 03-15-2019 [place], [place] Start: 1990 Sex Assigned At Not on file M [place], [place] Exposure to SARS-CoV -2 (event) Unable to assess [place] Start: 11-28-2019 End: 08-05-2024 Tobacco use and exposure Never used [place] Exposure to SARS-CoV -2 (event) Not sure [place] Start: 07-19-2022 End: 07-18-2023 Tobacco smoking consumption unknown [facility] Start: 1990 Sex Assigned At Female W [facility] Start: 12-24-2022 End: 06-22-2024 Tobacco use panel [facility] Start: 10-02-2014 PHQ2 Score 0 [facility] Start: 04-11-2024 Gender identity Identifies as female gender (finding) [facility] Start: 04-11-2024 Sexual orientation Heterosexual (fin ana) [facility] Do you belong to any clubs or organizations such as spiritism groups, unions, fraternal or athletic groups, or school groups? Yes [facility] Are you now , , , , never or living with a partner? Never [facility] How often to you hav e a drink containing alcohol? Never [facility] Do you feel stress - tense, restless, nervous, or anxious, or unable to sleep at night because your mind is troubled all the time - these days [OSQ] Not at all [facility] (I/We) worried whemichelle er (my/our) food would run out before (I/we) got money to buy more. Never true [facility] In the past 12 month s, was there a time when you were not able to pay the mortgage or rent on time? No [facility] NEGATED: Highlighted row [facility] Goals Date Patient Goal Desired Activity /State Personal health goal Personal health goal Functional Status Date Assessment Result Facility 05-14-2024 Total score [AUDIT-C] 0 05/14/19 25 10:03 AM Charlotte Leiva MA [facility] 05-14-2024 Humiliation, Afraid, Rape, and Kick questionnaire [HARK] [facility] 09-14-2021 Are you deaf, or do you have serious difficulty hearing No 09/14/2021 1:59 AM Fidelia Wheeler RN No [facility] 09-14-2021 Are you blind, or do you have serious difficulty seeing, even when wearing glasses No 09/14/2021 1:59 AM Fidelia Wheeler, DUNCAN No [facility] 09-14-2021 Do you have serious difficulty walking or climbing stairs No 09/14/2021 1:59 AM Fidelia Wheeler, DUNCAN No [facility] 09-14-2021 Do you have difficul ty dressing or bathing No 09/14/2021 1:59 AM Fidelia Wheeler, DUNCAN No [facility] 09-14-2021 Because of a physica l, mental, or emotional condition, do you have difficulty doing errands alone such as visiting a physician's office or shopping No 09/14/2021 1:59 AM Fidelia Wheeler, DUNCAN No [facility] Mental Status Date Assessment Result Facility 07-17-2023 Cognitive function Level Of Cons ciousness Awake;Alert;Appropriate;Fol lows Commands [facility] Work Phone: 07-17-2023 Cognitive function Arousable To Voice/Nam e [facility] Work Phone: 10-19-2022 Cognitive function Voice/Name [facility] Work Phone: 07-19-2022 Cognitive function Level Of Cons ciousness Awake;Alert;Appropriate;Fol lows Commands [facility] Work Phone: 09-14-2021 Because of a physica l, mental, or emotional condition, do you have serious difficulty concentrating, remembering, or making decisions No 09/14/2021 1:59 AM EDT Fidelia Powell RN No [facility] Clinical Notes 09-14-2021 to 01-20-2025 Janet Rodas, DO - 11/26/2024 12:45 PM EDTBJanet johnson, DO - 11/26/2024 12:02 PM EDTPatient InstructionsRaf Garland MD - 11/25/2024 5:58 PM EDTPatient InstructionsPatient Instructions Note Date & Type Note Facility 01-20-2025 Note HNO ID: [id number] Author: ALCIDES MURCIA MD Service: ? Author Type: Physician Type: Progress Notes Filed: 01/20/2025 15:47 Note Text: PATIENT: Crystal Machuca : 1990 DATE OF SERVICE: 01/20/2025 REFERRING PRACTITIONER: Mikhail Mckeon MD PRIMARY CARE PROVIDER: Amilcar Rivera PA-C CHIEF COMPLAINT: Patient presents with: New Patient Evaluation HISTORY OF PRESENT ILLNESS: Crystal Machuca is a 34 year old year old female who presents to the clinic today with chief complaint(s) as above. Onset/Duration: Low back pain has worsened for 1 year Injury: Patient denies injury that started this Location/radiation/referral: Pain is in the low back and radiates to the left leg Description: Burning, tightness Pain Level: Now: 6 /10 Best: 3 /10 Worst: 9 /10 Numbness/Tingling (location): Occasionally in the lower legs and feet Weakness (location): Bilateral legs Better with: Stretches Worse with: Activity, mopping Fever/Chills: [] Yes [x] No Recent significant weight change: [] Yes [x] No Bladder/Bowel incontinence: [] Yes [x] No-constipation Is this visit directly related to a work or auto injury? [] Yes [x] No If so, pre-Injury Symptoms: n/a Prior Related Consults: [x] Yes [] No 1. Dr. Mckeon 2. 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 HEENT: negative. EYES: negative RESPIRATORY: negative. CARDIOVASCULAR: negative. GASTROINTESTINAL: negative. GENITOURINARY: negative. INTEGUMENT/BREAST: negative. HEMATOLOGIC/LYMPHATIC: negative. NEURO/MUSCULOSKELETAL: Negative except above BEHAVIORAL/PSYCH: negative. ENDOCRINE: negative. ALLERGIC/IMMUNOLOGIC: Negative. 14 point ROS; pertinent positives listed above, the rest are reviewed and confirmed to be negative. === HISTORY: ALLERGIES Allergen Reactions Augmentin [Amoxicil* Hives [place] [Hydrocodone-* Vomiting Penicillin Hives Tramadol Vomiting PAST MEDICAL HISTORY Diagnosis Date Anorexia nervosa (HCC) Asthma (HCC) Bipolar disorder (HCC) Borderline personality disorder (HCC) Generalized anxiety disorder Headache High risk sexual behavior pt stopped B/C and she is on high risk antipsychotic medication HRP (high risk ) (HCC) substance abuse/bipolardisorder/personality disorder Menometrorrhagia Nausea and vomiting Opioid dependence (HCC) on suboxone psych/addiction dr delarosa Patient noncompliance Polysubstance dependence (HCC) heroin, thc, opiates , cocaine Polysubstance dependence (HCC) Subjective visual disturbance Tobacco dependence syndrome Ulcerative colitis (HCC) PAST SURGICAL HISTORY Procedure Laterality Date ADENOIDECTOMY HX 02/26/2013 DELIVERY ONLY Bilateral 07/16/2023 bilateral salpingectomy COLONOSCOPY SCREENING dx - ulcerative, lymphocitic - Dr. Emiliano Dr. Friend - dx at 13yrs old EGD W/O [facility] SPEC VARICIES INJ Ulcers in stomach ORAL SURGERY PROCEDURE wisdom teeth removed TONSILLECTOMY HX 02/26/2013 FAMILY HISTORY Problem Relation Age of Onset Diabetes Mother COPD Father No Known Problems Brother Lymphoma Maternal Grandmother Cancer Maternal Grandfather Colon, lung, brain, throat cancer other (heart disease [Other]) Maternal Grandfather Breast Cancer Paternal Grandmother Diabetes Paternal Grandfather Hypertension Paternal Grandfather Hyperlipidemia Paternal Grandfather SOCIAL HISTORY[1] Current Outpatient Medications Medication Sig famotidine (PEPCID) 40 mg tablet Take 1 tablet by mouth daily at bedtime. montelukast (SINGULAIR) 10 mg tablet Take 1 tablet by mouth daily at bedtime. metFORMIN ER (GLUCOPHAGE XR) 500 mg 24 hr tablet Take 1 tablet by mouth daily with dinner for 14 days, THEN 2 tablets daily with dinner. QUEtiapine (SEROQUEL) 25 mg tablet Take 25 mg by mouth two times a day. SUBLOCADE 100 mg/0.5 mL injection FLUoxetine (PROZAC) 20 mg capsule Take 1 capsule by mouth every afternoon. lithium carbonate 600 mg capsule Take 750 mg by mouth at bedtime as needed. cyclobenzaprine (FLEXERIL) 10 mg tablet Take 1 tablet by mouth three times a day as needed for muscle spasm or pain. gabapentin (NEURONTIN) 300 mg capsule Take 1 capsule by mouth two times a day for 30 days. SYNTHROID 25 mcg tablet Take 1 tablet by mouth once daily. (Patient not taking: Reported on 01/20/2025) No current facility-administered medications for this visit. OBJECTIVE: VS: BP 122/85 (BP Site: Left Arm (more content not included)... [facility] 01-13-2025 Note HNO ID: [id number] Author: TORSTEN BURROWS MD Service: ? Author Type: Physician Type: Progress Notes Filed: 01/18/2025 21:54 Note Text: [facility] Follow up note Virtual Visit (Audio/Visual)"I have discussed the nature of this visit with the patient which will occur via Distance Health (Phone, Virtual Visit) and he agrees to proceed with this interaction". I have communicated my name and active licensure. The patient's identity and physical location were verified at the time of this visit. Either the patient or their legal front desk representative has been informed of the risks and benefits of -- and alternatives to -- treatment through a remote evaluation and consents to proceed with the evaluation remotely. CONSULTING PROVIDER: Amilcar Rievra PA-C My final recommendations will be communicated back to the requesting provider by way of shared Medical record or a letter via [place] mail Subjective: Crystal Machuca is a 34 year old female here for follow up of hypothyroidism. Initial visit: 09/23/24 History in brief, Patient reports she was gaining significant amount of weight and hence her psychiatrist started her on LT4 (the dose as per chart review appears to be 50 mcg daily) for reasons to lose weight and help with fatigue despite having normal thyroid labs She reports she felt okay after that but when she saw her new Primary care provider in 11/2023, labs for thyroid were done and showed low TSH due to which LT4 was discontinued Labs done in Apr 2024 after this have been normal Patient started feeling significantly tired in few months after. She also reports a weight gain of approximately 30 lbs from April to June, with continued gain of 10-15 lbs per month. PCP did thyroid labs in July 2024 with significantly abnormal labs and patient was started on LT4 25 mcg daily in 08/2024. Patient reports she has been experiencing symptoms of jitteriness, palpitations, feeling ,like "being on a stimulant", has heat intolerance, diarrhea, low appetite. Her cycles are regular Regarding weight loss, - Denies recent changes in stress levels. 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 - Attempts to jog but experiences dyspnea. - Denies use of supplements or [id number] medications. Significantly elevated TSH concerning for hypothyroidism was diagnosed in July 2024 when labs were done for fatigue, weight gain Cause of hypothyroidism: unclear She was then started on LT4 again at 25 mcg daily She denied any supplement or iodine use. Denied any infections, sore throat, fever , neck pain few weeks or days prior to labs done in 07/2024 Current treatment: none Prior treatment: none prior to that for few weeks Interval history: 11/11/24: Patient reports she stopped taking the levothyroxine after last appt and she felt better with her symptoms of jitteriness She is returning after follow up labs She is also established with weight management team now, initial appt was on 10/27/24 Interval history: 01/13/2025: She was advised to start Synthroid name brand, but insurance did not approve and hence patient was advised to go to synthroid website directly She reports signing up at the beginning of Dec 2024, but has not received the medication yet. So she has done labs before starting the medication, hence are worse than before She continues to have fatigue, as well as anxiety reportedly She is seeing psychiatry every 4 weeks for her anxiety - currently on lithium, Fluoxteine and Quetiapine REVIEW OF SYSTEMS: 10 point ROS was reviewed and negative unless indicated in the HPI ALLERGIES: ALLERGIES Allergen Reactions Augmentin [Amoxicil* Hives [place] [Hydrocodone-* Vomiting Penicillin Hives Tramadol Vomiting MEDICATIONS: Current Outpatient Medications on File Prior to Visit Medication Sig tiZANidine (ZANAFLEX) 4 mg tablet Take 1 tablet by mouth once daily. QUEtiapine (SEROQUEL) 25 mg tablet Take 25 mg by mouth two times a day. levothyroxine (SYNTHROID) 25 mcg tablet Take 1 tablet by mouth daily before breakfast. famotidine (PEPCID) 40 mg tablet Take 1 tablet by mouth daily at bedtime. SUBLOCADE 100 mg/0.5 mL injection FLUoxetine (PROZAC) 20 mg capsule Take 1 capsule by mouth every afternoon. lithium carbonate 600 mg capsule Take 600 mg by mouth at bedtime as needed. No current facility-administered medications on file prior to visit. PAST MEDICAL HISTORY: PAST MEDICAL HISTORY Diagnosis Date Anorexia nervosa (HCC) Asthma (HCC) Bipolar disorder (HCC) Borderline personality disorder (HCC) Generalized anxiety disorder Headache High risk sexual behavior pt stopped B/C and she is on high risk antipsychotic medication HRP (high risk ) (HCC) substance abuse/bipolardisorder/personality disorder Menometrorrhagia Nausea and vomiting Opioid dependence (HCC) on suboxone dr aden (more content not included)... [facility] 12-03-2024 Note HNO ID: [id number] Author: JANET RODAS, DO Service: ? Author Type: Physician Type: Progress Notes Filed: 12/04/2024 16:06 Note Text: UNIVERSAL PROTOCOL / SAFETY CHECKLIST Procedure to be Performed: right leg EVLT Sign In: A Moment of CARE was completed. Appropriate PPE (Personal Protective Equipment) worn by all providers involved with the procedure. Special equipment not required. Patient/Surrogate Stated/Verified: Patient name, Date of , Relevant allergies, and The intended procedure Time Out: Relevant labs, photos, and/or imaging studies have been reviewed. Intended patient and procedure match the source document(s) (e.g. consent, HANDP, associated studies [imaging, pathology]) match the intended patient and procedure. Consent obtained and matches the intended procedure. Yes. Correct side/site has been marked and visible. Medications required for this procedure are verified. are not applicable. Fire risk assessed and is not applicable. Implants: are not applicable. Sign Out: Specimens not collected. All instruments, equipment, possible retained foreign bodies are accounted for. Yes. The post-procedure plan of care has been communicated to the patient or surrogate. Surgeon: Janet Rodas DO Receiving Coordinator(s): Phuong Cardenas Procedure(s): EVLT ablation of the right great saphenous vein Anesthesia: Local with 1% lidocaine, and tumescence anesthesia using 50 cc of 1% lidocaine with epinephrine 1:100,0000 + 20 cc of 8.4% sodium bicarbonate in 1000 cc of normal saline Preoperative Diagnosis: Symptomatic varicose veins right leg. Postoperative Diagnoses: Symptomatic varicose veins right leg. Operative Indications: The patient is a 34 year old female with painful varicose veins, especially on the right leg. Noninvasive vascular laboratory studies revealed valvular incompetence in the right great saphenous vein. Options of therapy were discussed. She elected to proceed with surgery. Operative Findings: Varicose veins right leg. Procedure Narrative: The patient was seen in the preoperative area, consent was obtained, and 1 mg of xanax was given po. She was then taken to the procedure room and placed in supine position. The patient's right lower extremity was prepped with chloraprep and draped in the usual sterile fashion. Attention was first directed to the saphenous vein just below the knee. Local anesthesia was obtained by injecting Lidocaine 1%. Under ultrasound guidance, the saphenous vein was accessed using the Micro-Access set. A 0.035 inch wire was passed through the sheath to the level of the saphenofemoral junction. The sheath was removed, and a 4-Somali sheath and dilator were passed over the guidewire to the level of the saphenofemoral junction. The guidewire and dilator were removed and the AngioDynamics EVLT gold-tipped laser fiber was passed through the sheath to the level of the saphenofemoral junction. The laser fiber was secured to the sheath.Under ultrasound guidance, the tip of the laser fiber was positioned approximately 3 cm distal to the saphenofemoral junction and just distal to the entrance of the superficial epigastric vein. Under ultrasound guidance, tumescence solution was injected into the fascial sheath containing the saphenous vein. The tumescence solution consisted of normal saline, lidocaine, and sodium bicarbonate. A total of 450 mL was injected. The laser power was then set at 7 cavanaugh. The laser was energized and withdrawn at a rate of 1 cm per 9 seconds for the first several cm. Then, the rate of withdrawal was increased to 1 cm per 6 seconds for the remainder of the 46 cm treated. A total of 1469 joules were delivered over 209 seconds to the 46 cm of vein treated. This averaged 32 joules per cm. The sheath and laser fiber were removed. Pressure was held at the site of catheter insertion for 2 minutes. The vein was again interrogated using duplex ultrasound. The vein was completely collapsed and the garrett were thickened. A Tegaderm was applied to the catheter insertion site. A 20-30 mm Hg thigh high compression stocking was put on the leg. The patient tolerated the procedure well. Postoperative instructions were given. Surgeon/Practitioner Performing Venous Access: Janet Rodas DO Surgeon/Practitioner Performing Ablation: Janet Rodas DO Estimated Blood Loss: none Drains: none Prosthetic Devices, Grafts, or Implants: none Specimens: none Complications: none [facility] 12-03-2024 Note HNO ID: [id number] Author: JANET RODAS DO Service: ? Author Type: Physician Type: Progress Notes Filed: 12/04/2024 16:06 Note Text: [facility] Operative Report Endovenous Laser Ablation Crystal Ko Brigette [birth year]24 1990 ALLERGIES: ALLERGIES Allergen Reactions Augmentin [Amoxicil* Hives Monroe [Hydrocodone-* Vomiting Penicillin Hives Tramadol Vomiting Physician: Janet Rodas DO Assistants: Stefanie Cardenas RVT Leg: right Greater saphenous vein Position:Supine Pre-op Assessment: Ambulatory, Calm, and Oriented Xanax Dosage (Oral) : 1mg Time: 0950 SIGN IN COMPLETE: Yes Patient in Room: 1015 Vein Marked: No Hair Clipped: No Prep: chloraprep Time out: 1028 Reviewed allergies AND medications Consent Signed Correct Patient/ Date Correct Procedure Correct Side: Right Correct Position Correct Equipment Start Time: 1029 1% Xylocaine Plain + 8.4% NaBicarb (5:1 mixture): Total injected: 5cc Tumescent Local Mixture: ELVT: 1000cc Normal Saline + 50cc 1% Xylocaine with 1:100,000 Epinephrine + 20cc 8.4% Sodium Bicarbonate Total Tumescent Local Injected: 450cc Laser Equipment: Laser protective googles ON patient and staff and Angiodynamics Venacure 1470 Laser Energy Used: EVLT: Greater saphenous vein 7 Cavanaugh 32Joules/cm 1469 Total # Joules 209 Seconds 46cm Sharp Count: Pre-op: 5 Post-op: 6 Dressing: compression stocking End Time: Post-op Assessment:Ambulatory and Calm Discharge Instructions: RX for Motrin 600mg E-scripted SIGN OUT COMPLETE: Yes [facility] 11-26-2024 Note HNO ID: [id number] Author: JANET RODAS DO Service: ? Author Type: Physician Type: Progress Notes Filed: 11/26/2024 13:01 Note Text: UNIVERSAL PROTOCOL / SAFETY CHECKLIST Procedure to be Performed: left leg EVLT Sign In: A Moment of CARE was completed. Appropriate PPE (Personal Protective Equipment) worn by all providers involved with the procedure. Special equipment not required. Patient/Surrogate Stated/Verified: Patient name, Date of , Relevant allergies, and The intended procedure Time Out: Relevant labs, photos, and/or imaging studies have been reviewed. Intended patient and procedure match the source document(s) (e.g. consent, HANDP, associated studies [imaging, pathology]) are not applicable. Consent obtained and matches the intended procedure. Yes. Correct side/site has been marked and visible. Medications required for this procedure are verified. Fire risk assessed and interventions discussed. Implants: are not applicable. Sign Out: Specimens not collected. All instruments, equipment, possible retained foreign bodies are accounted for. Yes. The post-procedure plan of care has been communicated . Surgeon: Janet Rodas DO Receiving Coordinator(s): Phuong Cardenas Procedure(s): EVLT ablation of the left great saphenous vein Anesthesia: Local with 1% lidocaine, and tumescence anesthesia using 50 cc of 1% lidocaine with epinephrine 1:100,0000 + 20 cc of 8.4% sodium bicarbonate in 1000 cc of normal saline Preoperative Diagnosis: Symptomatic varicose veins left leg. Postoperative Diagnoses: Symptomatic varicose veins left leg. Operative Indications: The patient is a 34 year old female with painful varicose veins, especially on the left leg. Noninvasive vascular laboratory studies revealed valvular incompetence in the left great saphenous vein. Options of therapy were discussed. She elected to proceed with surgery. Operative Findings: Varicose veins left leg. Procedure Narrative: The patient was seen in the preoperative area, consent was obtained, and 1 mg of xanax was given po. He was then taken to the procedure room and placed in supine position. The patient's left lower extremity was prepped with chloraprep and draped in the usual sterile fashion. Attention was first directed to the saphenous vein just below the knee. Local anesthesia was obtained by injecting Lidocaine 1%. Under ultrasound guidance, the saphenous vein was accessed using the Micro-Access set. A 0.035 inch wire was passed through the sheath to the level of the saphenofemoral junction. The sheath was removed, and a 4-Somali sheath and dilator were passed over the guidewire to the level of the saphenofemoral junction. The guidewire and dilator were removed and the AngioDynamics EVLT gold-tipped laser fiber was passed through the sheath to the level of the saphenofemoral junction. The laser fiber was secured to the sheath.Under ultrasound guidance, the tip of the laser fiber was positioned approximately 3 cm distal to the saphenofemoral junction and just distal to the entrance of the superficial epigastric vein. Under ultrasound guidance, tumescence solution was injected into the fascial sheath containing the saphenous vein. The tumescence solution consisted of normal saline, lidocaine, and sodium bicarbonate. A total of 600 mL was injected. The laser power was then set at 7 cavanaugh. The laser was energized and withdrawn at a rate of 1 cm per 9 seconds for the first several cm. Then, the rate of withdrawal was increased to 1 cm per 6 seconds for the remainder of the 52 cm treated. A total of 1940 joules were delivered over 277 seconds to the 52 cm of vein treated. This averaged 37 joules per cm. The sheath and laser fiber were removed. Pressure was held at the site of catheter insertion for 2 minutes. The vein was again interrogated using duplex ultrasound. The vein was completely collapsed and the garrett were thickened. A Tegaderm was applied to the catheter insertion site. A 20-30 mm Hg thigh high compression stocking was put on the leg. The patient tolerated the procedure well. Postoperative instructions were given. Surgeon/Practitioner Performing Venous Access: Janet Rodas DO Surgeon/Practitioner Performing Ablation: Janet Rodas DO Estimated Blood Loss: none Drains: none Prosthetic Devices, Grafts, or Implants: none Specimens: none Complications: none [facility] 11-26-2024 History of Present illness Narrative UNIVERSAL PROTOCOL / SAFETY CHECKLIST Procedure to be Performed: left leg EVLT Sign In: A Moment of CARE was completed. Appropriate PPE (Personal Protective Equipment) worn by all providers involved with the procedure. Special equipment not required. Patient/Surrogate Stated/Verified: Patient name, Date of , Relevant allergies, and The intended procedure Time Out: Relevant labs, photos, and/or imaging studies have been reviewed. Intended patient and procedure match the source document(s) (e.g. consent, H&P, associated studies [imaging, pathology]) are not applicable. Consent obtained and matches the intended procedure. Yes. Correct side/site has been marked and visible. Medications required for this procedure are verified. Fire risk assessed and interventions discussed. Implants: are not applicable. Sign Out: Specimens not collected. All instruments, equipment, possible retained foreign bodies are accounted for. Yes. The post-procedure plan of care has been communicated . Surgeon: Janet Rodas DO Receiving Coordinator(s): Phuong Cardenas Procedure(s): EVLT ablation of the left great saphenous vein Anesthesia: Local with 1% lidocaine, and tumescence anesthesia using 50 cc of 1% lidocaine with epinephrine 1:100,0000 + 20 cc of 8.4% sodium bicarbonate in 1000 cc of normal saline Preoperative Diagnosis: Symptomatic varicose veins left leg. Postoperative Diagnoses: Symptomatic varicose veins left leg. Operative Indications: The patient is a 34 year old female with painful varicose veins, especially on the left leg. Noninvasive vascular laboratory studies revealed valvular incompetence in the left great saphenous vein. Options of therapy were discussed. She elected to proceed with surgery. Operative Findings: Varicose veins left leg. Procedure Narrative: The patient was seen in the preoperative area, consent was obtained, and 1 mg of xanax was given po. He was then taken to the procedure room and placed in supine position. The patient's left lower extremity was prepped with chloraprep and draped in the usual sterile fashion. Attention was first directed to the saphenous vein just below the knee. Local anesthesia was obtained by injecting Lidocaine 1%. Under ultrasound guidance, the saphenous vein was accessed using the Micro-Access set. A 0.035 inch wire was passed through the sheath to the level of the saphenofemoral junction. The sheath was removed, and a 4-Somali sheath and dilator were passed over the guidewire to the level of the saphenofemoral junction. The guidewire and dilator were removed and the AngioDynamics EVLT gold-tipped laser fiber was passed through the sheath to the level of the saphenofemoral junction. The laser fiber was secured to the sheath. Under ultrasound guidance, the tip of the laser fiber was positioned approximately 3 cm distal to the saphenofemoral junction and just distal to the entrance of the superficial epigastric vein. Under ultrasound guidance, tumescence solution was injected into the fascial sheath containing the saphenous vein. The tumescence solution consisted of normal saline, lidocaine, and sodium bicarbonate. A total of 600 mL was injected. The laser power was then set at 7 cavanaugh. The laser was energized and withdrawn at a rate of 1 cm per 9 seconds for the first several cm. Then, the rate of withdrawal was increased to 1 cm per 6 seconds for the remainder of the 52 cm treated. A total of 1940 joules were delivered over 277 seconds to the 52 cm of vein treated. This averaged 37 joules per cm. The sheath and laser fiber were removed. Pressure was held at the site of catheter insertion for 2 minutes. The vein was again interrogated using duplex ultrasound. The vein was completely collapsed and the garrett were thickened. A Tegaderm was applied to the catheter insertion site. A 20-30 mm Hg thigh high compression stocking was put on the leg. The patient tolerated the procedure well. Postoperative instructions were given. Surgeon/Practitioner Performing Venous Access: Janet Rodas DO Surgeon/Practitioner Performing Ablation: Janet Rodas DO Estimated Blood Loss: none Drains: none Prosthetic Devices, Grafts, or Implants: none Specimens: none Complications: none [facility] Operative Report Endovenous Laser Ablation Crystal Ko Edgaryumi November 1990 ALLERGIES: ALLERGIES Allergen Reactions Augmentin [Amoxicil* Hives [place] [Hydrocodone-* Vomiting Penicillin Hives Tramadol Vomiting Physician: Janet Rodas DO Assistants: Phuong Cardenas RVT Leg: left Greater saphenous vein Position:Supine Pre-op Assessment: Ambulatory, Calm, and Oriented Xanax Dosage (Oral) : 1mg Time: 1128 SIGN IN COMPLETE: Yes Patient in Room: 1145 Vein Marked: No Hair Clipped: No Prep: chloraprep Time out: 1201 Reviewed allergies & medications Consent Signed Correct Patient/ Date Correct Procedure Correct Side: Left Correct Position Correct Equipment Start Time: 1102 1% Xylocaine Plain + 8.4% NaBicarb (5:1 mixture): Total injected: 5cc Tumescent Local Mixture: ELVT: 1000cc Normal Saline + 50cc 1% Xylocaine with 1:100,000 Epinephrine + 20cc 8.4% Sodium Bicarbonate Total Tumescent Local Injected: 600cc Laser Equipment: Laser protective googles ON patient and staff and Angiodynamics Venacure 1470 Laser Energy Used: EVLT: Greater saphenous vein 7 Cavanaugh 37Joules/cm 1940 Total # Joules 277 Seconds 52 cm Sharp Count: Pre-op: 5 Post-op: 5 Dressinx2 bordered guaze, band aids, compression stocking End Time: 1:01 PM Post-op Assessment:Ambulatory, Calm, Oriented , and Tolerated procedure with no apparent injury Discharge Instructions: Written Homegoing Instructions given & Reviewed Verbally with Patient Discharge Time: 1:01 PM Discharged with Fire Alarm Dispatcher: yes SIGN OUT COMPLETE: Yes documented in this encounter [facility] 11-26-2024 Instructions Sadia López RN - 11/26/2024 12:31 PM EDT Please follow these instructions after your endovenous laser ablation procedure: You are encouraged to walk at least 20 minutes every 3-4 hours during the day. Walking will help with the recovery process. Refrain from vigorous gym exercise and running for 72 hours. No heavy lifting (greater than 40lbs) for 3-5 days. Avoid submerging your leg (baths, swimming, hot tub) for 72 hours. You will need to wear a compression stocking for two days and two nights following your procedure. After this, compression should be worn during the day only for two weeks. You may shower the morning after your procedure. It is normal to experience some bruising, soreness, and tightening sensations after your procedure for a few weeks. [id number] Ibuprofen (Motrin 200mg), 2-3 tablets every 8 hours with food, should be taken for 7 days after your procedure to help with pain and swelling. Avoid exposure to direct sunlight for 2 weeks after your procedure. Do not fly or take long car rides for 1 week following your procedure. You will be scheduled a follow-up ultrasound 1 week after your procedure. Follow-up with Dr. Rodas will occur approximately 1 month after your procedure. If you experience severe pain, swelling, or bleeding, please contact the office at [phone] documented in this encounter [facility] 11-26-2024 Note HNO ID: [id number] Author: JANET RODAS DO Service: ? Author Type: Physician Type: Progress Notes Filed: 11/26/2024 13:01 Note Text: [facility] Operative Report Endovenous Laser Ablation Crystal Machuca November 1990 ALLERGIES: ALLERGIES Allergen Reactions Augmentin [Amoxicil* Hives [place] [Hydrocodone-* Vomiting Penicillin Hives Tramadol Vomiting Physician: Janet Rodas DO Assistants: Phuong Cardenas RVT Leg: left Greater saphenous vein Position:Supine Pre-op Assessment: Ambulatory, Calm, and Oriented Xanax Dosage (Oral) : 1mg Time: 1128 SIGN IN COMPLETE: Yes Patient in Room: 1145 Vein Marked: No Hair Clipped: No Prep: chloraprep Time out: 1201 Reviewed allergies AND medications Consent Signed Correct Patient/ Date Correct Procedure Correct Side: Left Correct Position Correct Equipment Start Time: 1102 1% Xylocaine Plain + 8.4% NaBicarb (5:1 mixture): Total injected: 5cc Tumescent Local Mixture: ELVT: 1000cc Normal Saline + 50cc 1% Xylocaine with 1:100,000 Epinephrine + 20cc 8.4% Sodium Bicarbonate Total Tumescent Local Injected: 600cc Laser Equipment: Laser protective googles ON patient and staff and Angiodynamics Venacure 1470 Laser Energy Used: EVLT: Greater saphenous vein 7 Cavanaugh 37Joules/cm 1940 Total # Joules 277 Seconds 52 cm Sharp Count: Pre-op: 5 Post-op: 5 Dressinx2 bordered guaze, band aids, compression stocking End Time: 1:01 PM Post-op Assessment:Ambulatory, Calm, Oriented , and Tolerated procedure with no apparent injury Discharge Instructions: Written Homegoing Instructions given AND Reviewed Verbally with Patient Discharge Time: 1:01 PM Discharged with Fire Alarm Dispatcher: yes SIGN OUT COMPLETE: Yes [facility] 11-25-2024 Note HNO ID: [id number] Author: RAF GARLAND MD Service: ? Author Type: Physician Type: Progress Notes Filed: 11/25/2024 18:04 Note Text: [facility]RGENT CARE LENIN Machuca is a 34 year old female. Patient presents with: Rash: on hands x couple months, increased x this week Rash: Location: hands Duration: months Pruritis: No Pain: only feels a sharp poke if pressed on Change: spread this week Bleeding/ulceration/blister/pustu le: tiny bumps Contacts with rash: diagnosed with impetigo last week Exposure: No new soaps, detergents, fabric softeners, lotions. 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 Change in medications: No. Recent illness: No. Treatment: none Rash Review of Systems Skin: Positive for rash. Objective BP 124/82 Pulse 70 Temp 36.4 ?C (97.6 ?F) Resp 16 Wt 109.2 kg (240 lb 11.9 oz) LMP 11/03/2023 (Exact Date) SpO2 98% BMI 40.06 kg/m? Physical Exam Constitutional: General: She is not in acute distress. Skin: Comments: A few sparse pinhead papules on the dorsal hands. Dry slightly scaly skin and interdigital spaces. 4 mm worsening of the pruritic is papular on the right hand fifth finger base. Neurological: Mental Status: She is alert. {ASSESSMENT/PLAN: 1. Hand eczema - ICD9: 692.9, ICD10: L30.9 Suspect irritant dermatitis. Right fifth finger papule has been present for years and is probably a nevus. Reassured her chronic hand condition is not eczema. - CONSULT TO DERMATOLOGY provided telephone number for local dermatology since she does not want to travel. Raf Garland MD Differential Diagnoses - Hand eczema is more likely for the following reason(s): suggested by HANDP - Impetigo is less likely for the following reason(s): HANDP not suggestive - Scabies is less likely for the following reason(s): No burrowing tracts, nonpruritic, no spread to other body parts or contacts Procedures [facility] 11-25-2024 History of Present illness Narrative URGENT CARE [facility] Crystal Machuca is a 34 year old female. Patient presents with: Rash: on hands x couple months, increased x this week Rash: Location: hands Duration: months Pruritis: No Pain: only feels a sharp poke if pressed on Change: spread this week Bleeding/ulceration/blister/pustu le: tiny bumps Contacts with rash: diagnosed with impetigo last week Exposure: No new soaps, detergents, fabric softeners, lotions. 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 Change in medications: No. Recent illness: No. Treatment: none Rash Review of Systems Skin: Positive for rash. Objective BP 124/82 Pulse 70 Temp 36.4 C (97.6 F) Resp 16 Wt 109.2 kg (240 lb 11.9 oz) LMP 11/03/2023 (Exact Date) SpO2 98% BMI 40.06 kg/m Physical Exam Constitutional: General: She is not in acute distress. Skin: Comments: A few sparse pinhead papules on the dorsal hands. Dry slightly scaly skin and interdigital spaces. 4 mm worsening of the pruritic is papular on the right hand fifth finger base. Neurological: Mental Status: She is alert. {ASSESSMENT/PLAN: 1. Hand eczema - ICD9: 692.9, ICD10: L30.9 Suspect irritant dermatitis. Right fifth finger papule has been present for years and is probably a nevus. Reassured her chronic hand condition is not eczema. - CONSULT TO DERMATOLOGY provided telephone number for local dermatology since she does not want to travel. Raf Garland MD Differential Diagnoses - Hand eczema is more likely for the following reason(s): suggested by H&P - Impetigo is less likely for the following reason(s): H&P not suggestive - Scabies is less likely for the following reason(s): No burrowing tracts, nonpruritic, no spread to other body parts or contacts Procedures documented in this encounter [facility] 11-19-2024 Instructions Mikhail Mckeon MD - 11/19/2024 10:57 AM EDT At this time I am referring you to pain management for further care. Continue stretches at home. I did prescribe more Flexeril to take as needed. I would like to see you back in 3 months for follow-up. If it anytime you would like to see a spine surgeon we can schedule that. documented in this encounter [facility] 11-19-2024 Note HNO ID: [id number] Author: MIKHAIL MCKEON MD Service: ? Author Type: Physician Type: Progress Notes Filed: 11/19/2024 10:58 Note Text: Crystal Machuca is a 34 year old presenting with Follow Up, Pain, and Results - Mri of the Lower Back HPI: Patient is here for follow-up of her low back pain. She has also had the neck pain but that is improved. She states the back pain is actually worsening. She did have her MRI recently and is here to go over those results. She gets pain in the mid to lower back radiating mostly into the left lower extremity. Muscle relaxers have helped slightly in the past but she is out of those. She is still doing stretches at home but has finished physical therapy. Review of Systems Constitutional: Negative for fever. Musculoskeletal: Positive for back pain. Neurological: Positive for tingling (Lower extremities left greater than right) and focal weakness (Extremities left greater than right). PAST MEDICAL HISTORY Diagnosis Date Anorexia nervosa (HCC) Asthma (HCC) Bipolar disorder (HCC) Borderline personality disorder (HCC) Generalized anxiety disorder Headache High risk sexual behavior pt stopped B/C and she is on high risk antipsychotic medication HRP (high risk ) ([facility]) substance abuse/bipolardisorder/personality disorder Menometrorrhagia Nausea and vomiting Opioid dependence (HCC) on suboxone psych/addiction dr delarosa Patient noncompliance Polysubstance dependence (HCC) heroin, thc, opiates , cocaine Polysubstance dependence ([facility]) Subjective visual disturbance Tobacco dependence syndrome Ulcerative colitis (HCC) FAMILY HISTORY Problem Relation Age of Onset Diabetes Mother COPD Father No Known Problems Brother Lymphoma Maternal Grandmother Cancer Maternal Grandfather Colon, lung, brain, throat cancer other (heart disease [Other]) Maternal Grandfather Breast Cancer Paternal Grandmother Diabetes Paternal Grandfather Hypertension Paternal Grandfather Hyperlipidemia Paternal Grandfather Tobacco Use: High Risk (11/19/2024) Patient History Smoking Tobacco Use: Every Day Smokeless Tobacco Use: Never Passive Exposure: Not on file Alcohol Use: No Current Outpatient Medications Medication Sig SYNTHROID 25 mcg tablet Take 1 tablet by mouth once daily. montelukast (SINGULAIR) 10 mg tablet Take 1 tablet by mouth daily at bedtime. metFORMIN ER (GLUCOPHAGE XR) 500 mg 24 hr tablet Take 1 tablet by mouth daily with dinner for 14 days, THEN 2 tablets daily with dinner. tiZANidine (ZANAFLEX) 4 mg tablet Take 1 tablet by mouth once daily. QUEtiapine (SEROQUEL) 25 mg tablet Take 25 mg by mouth two times a day. famotidine (PEPCID) 40 mg tablet Take 1 tablet by mouth daily at bedtime. SUBLOCADE 100 mg/0.5 mL injection FLUoxetine (PROZAC) 20 mg capsule Take 1 capsule by mouth every afternoon. lithium carbonate 600 mg capsule Take 750 mg by mouth at bedtime as needed. No current facility-administered medications for this visit. ALLERGIES Allergen Reactions Augmentin [Amoxicil* Hives [place] [Hydrocodone-* Vomiting Penicillin Hives Tramadol Vomiting Pulse 68 Ht 5' 5" (1.65m) Wt 245 lb (111.1kg) SpO2 98% LMP 11/03/2023 BMI 40.77 kg/(m2). Physical Exam Vitals reviewed. Constitutional: General: She is not in acute distress. Musculoskeletal: Comments: Pain has tenderness paralumbar soft tissue. No midline tenderness. She has 2+ patella and Achilles reflexes equal bilateral. She has no focal weakness with lower extremity strength testing but some mild generalized weakness. Her MRI showed mild spinal canal stenosis at L2-3 with mild right neuroforaminal stenosis at L4-5. There was no high-grade stenosis. She did have a 4 mm synovial cyst on the left at L4-5 projecting in the dorsal paraspinal soft tissues. Some mild disc bulging. Neurological: Mental Status: She is alert. Procedures ASSESSMENT/PLAN: 1. Left-sided low back pain with left-sided sciatica, unspecified chronicity - ICD9: 724.3, ICD10: M54.42 (primary diagnosis) Patient continues to have back pain with some symptoms into the left lower extremity. MRI showed minor changes but there was some stenosis at L4-5 and L2-3. She also has a synovial cyst at L4-5. At this time I am referring her to pain management for further treatment. She is prescribed more Flexeril to take for symptomatic relief. I would like to see her back in 3 months for recheck. If she still having quite a bit of problems I would refer her to a greenhouse specialist. - CONSULT TO PAIN MGT 2. Spinal stenosis of lumbar region with neurogenic claudication - ICD9: 724.03, ICD10: M48.062 - CONSULT TO PAIN MGT No problem-specific Assessment AND Plan notes found for this encounter. [facility] 11-19-2024 History of Present illness Narrative Crystal Machuca is a 34 year old presenting with Follow Up, Pain, and Results - Mri of the Lower Back HPI: Patient is here for follow-up of her low back pain. She has also had the neck pain but that is improved. She states the back pain is actually worsening. She did have her MRI recently and is here to go over those results. She gets pain in the mid to lower back radiating mostly into the left lower extremity. Muscle relaxers have helped slightly in the past but she is out of those. She is still doing stretches at home but has finished physical therapy. Review of Systems Constitutional: Negative for fever. Musculoskeletal: Positive for back pain. Neurological: Positive for tingling (Lower extremities left greater than right) and focal weakness (Extremities left greater than right). PAST MEDICAL HISTORY Diagnosis Date Anorexia nervosa (HCC) Asthma (HCC) Bipolar disorder (HCC) Borderline personality disorder (HCC) Generalized anxiety disorder Headache High risk sexual behavior pt stopped B/C and she is on high risk antipsychotic medication HRP (high risk ) ([facility]) substance abuse/bipolardisorder/personality disorder Menometrorrhagia Nausea and vomiting Opioid dependence (HCC) on suboxone psych/addiction dr delarosa Patient noncompliance Polysubstance dependence ([facility]) heroin, thc, opiates , cocaine Polysubstance dependence ([facility]) Subjective visual disturbance Tobacco dependence syndrome Ulcerative colitis (HCC) FAMILY HISTORY Problem Relation Age of Onset Diabetes Mother COPD Father No Known Problems Brother Lymphoma Maternal Grandmother Cancer Maternal Grandfather Colon, lung, brain, throat cancer other (heart disease [Other]) Maternal Grandfather Breast Cancer Paternal Grandmother Diabetes Paternal Grandfather Hypertension Paternal Grandfather Hyperlipidemia Paternal Grandfather Tobacco Use: High Risk (11/19/2024) Patient History Smoking Tobacco Use: Every Day Smokeless Tobacco Use: Never Passive Exposure: Not on file Alcohol Use: No Current Outpatient Medications Medication Sig SYNTHROID 25 mcg tablet Take 1 tablet by mouth once daily. montelukast (SINGULAIR) 10 mg tablet Take 1 tablet by mouth daily at bedtime. metFORMIN ER (GLUCOPHAGE XR) 500 mg 24 hr tablet Take 1 tablet by mouth daily with dinner for 14 days, THEN 2 tablets daily with dinner. tiZANidine (ZANAFLEX) 4 mg tablet Take 1 tablet by mouth once daily. QUEtiapine (SEROQUEL) 25 mg tablet Take 25 mg by mouth two times a day. famotidine (PEPCID) 40 mg tablet Take 1 tablet by mouth daily at bedtime. SUBLOCADE 100 mg/0.5 mL injection FLUoxetine (PROZAC) 20 mg capsule Take 1 capsule by mouth every afternoon. lithium carbonate 600 mg capsule Take 750 mg by mouth at bedtime as needed. No current facility-administered medications for this visit. ALLERGIES Allergen Reactions Augmentin [Amoxicil* Hives [place] [Hydrocodone-* Vomiting Penicillin Hives Tramadol Vomiting Pulse 68 Ht 5' 5" (1.65m) Wt 245 lb (111.1kg) SpO2 98% LMP 11/03/2023 BMI 40.77 kg/(m^2). Physical Exam Vitals reviewed. Constitutional: General: She is not in acute distress. Musculoskeletal: Comments: Pain has tenderness paralumbar soft tissue. No midline tenderness. She has 2+ patella and Achilles reflexes equal bilateral. She has no focal weakness with lower extremity strength testing but some mild generalized weakness. Her MRI showed mild spinal canal stenosis at L2-3 with mild right neuroforaminal stenosis at L4-5. There was no high-grade stenosis. She did have a 4 mm synovial cyst on the left at L4-5 projecting in the dorsal paraspinal soft tissues. Some mild disc bulging. Neurological: Mental Status: She is alert. Procedures ASSESSMENT/PLAN: 1. Left-sided low back pain with left-sided sciatica, unspecified chronicity - ICD9: 724.3, ICD10: M54.42 (primary diagnosis) Patient continues to have back pain with some symptoms into the left lower extremity. MRI showed minor changes but there was some stenosis at L4-5 and L2-3. She also has a synovial cyst at L4-5. At this time I am referring her to pain management for further treatment. She is prescribed more Flexeril to take for symptomatic relief. I would like to see her back in 3 months for recheck. If she still having quite a bit of problems I would refer her to a greenhouse specialist. - CONSULT TO PAIN MGT 2. Spinal stenosis of lumbar region with neurogenic claudication - ICD9: 724.03, ICD10: M48.062 - CONSULT TO PAIN MGT No problem-specific Assessment & Plan notes found for this encounter. 34 y/o female patient here today to follow up with lumbar pain. MRI completed. documented in this encounter [facility] 11-19-2024 Note HNO ID: [id number] Author: SYLVIA BANSAL MA Service: ? Author Type: Call Center Supervisor Type: Progress Notes Filed: 11/19/2024 10:58 Note Text: 34 y/o female patient here today to follow up with lumbar pain. MRI completed. [facility] 11-13-2024 Telephone encounter Note Images from the original note were not included. Dear Provider, Your patient's medication Synthroid 25MCG tablets was denied. Denial letters are sent directly to the patient and at times to the healthcare providers. If we receive a denial letter, it will be indexed for your review. If you want to appeal the decision. Please submit your request via staff message to the [employer] Auth Appeals Pool ([id number]). You can find templates listed below to support your appeal in [facility] (Epic drop down, select patient care, select send letter). If it is an urgent request, you can email the PA Prior auth Team at . Please make sure the documents below are completed in order to process your request. If the appeal is denied, do you want to schedule a peer to peer Yes/No. We will schedule peer to peer automatically if yes. Thank You, Ramen Prior Auth Appeals Team Endo PA Appeal letter Endo PA Letter of Medical Necessity Endo PA [place] [facility] 11-13-2024 Miscellaneous Notes Images from the original note were not included. Dear Provider, Your patient's medication Synthroid 25MCG tablets was denied. Denial letters are sent directly to the patient and at times to the healthcare providers. If we receive a denial letter, it will be indexed for your review. If you want to appeal the decision. Please submit your request via staff message to the Jeromy Leal Auth Appeals Pool ([phone]). You can find templates listed below to support your appeal in [facility] (Epic drop down, select patient care, select send letter). If it is an urgent request, you can email the FLORY tirado Team at . Please make sure the documents below are completed in order to process your request. If the appeal is denied, do you want to schedule a peer to peer Yes/No. We will schedule peer to peer automatically if yes. Thank You, Jeromy Leal Auth Appeals Team Jeromy RUTH Appeal letter Jeromy RUTH Letter of Medical Necessity Jeromy RUTH [place] documented in this encounter [facility] 11-12-2024 History of Present illness Narrative Radiology Service Progress Note PATIENT NAME: Crystal Machuca DATE OF SERVICE: November 12, 2024 TIME: 10:50 AM PATIENT IDENTITY VERIFICATION COMPLETED USING TWO (2) IDENTIFIERS: Name and Date of confirmed by patient verbally. FALL SCREENING: Has the patient had 2 falls in the last year or 1 fall with injury or currently using an Ambulatory Assistive Device (Walker, Cane, Wheelchair, Crutches, etc.)? No PATIENT GENDER DATA: Assigned female at . status: : No status: NO. PATIENT RELEVANT IMPLANT DATA REVIEWED: Yes PATIENT PRESENTS WITH AN IMPLANTABLE OR ATTACHED HIDE PASTER: No RADIOLOGY DEPARTMENT: MR; Exam(s) Completed: Spine: Lumbar spine. Anesthesia: No. Aromatherapy Administered: No PERIPHERAL IV DATA: Not applicable SIGNED BY: RT Suresh(Stefani) November 12, 2024 10:50 AM documented in this encounter [facility] 11-12-2024 Note HNO ID: [id number] Author: CHEMA KENNEDY RT(Stefani) Service: ? Author Type: Technologist Type: Progress Notes Filed: 11/12/2024 10:50 Note Text: Radiology Service Progress Note PATIENT NAME: Crystal Machuca DATE OF SERVICE: November 12, 2024 TIME: 10:50 AM PATIENT IDENTITY VERIFICATION COMPLETED USING TWO (2) IDENTIFIERS: Name and Date of confirmed by patient verbally. FALL SCREENING: Has the patient had 2 falls in the last year or 1 fall with injury or currently using an Ambulatory Assistive Device (Walker, Cane, Wheelchair, Crutches, etc.)? No PATIENT GENDER DATA: Assigned female at . status: : No status: NO. PATIENT RELEVANT IMPLANT DATA REVIEWED: Yes PATIENT PRESENTS WITH AN IMPLANTABLE OR ATTACHED HIDE PASTER: No RADIOLOGY DEPARTMENT: MR; Exam(s) Completed: Spine: Lumbar spine. Anesthesia: No. Aromatherapy Administered: No PERIPHERAL IV DATA: Not applicable SIGNED BY: RT Suresh(R) November 12, 2024 10:50 AM [facility] 11-12-2024 Telephone encounter Note Images from the original note were not included. Initiated PA for Synthroid 25MCG tablets through [facility] Questions Completed Waiting for determination Vonda Prior Network/Telecom Engineer III Endocrinology & Metabolic [place] [facility] 11-12-2024 Miscellaneous Notes Images from the original note were not included. Initiated PA for Synthroid 25MCG tablets through [facility] Questions Completed Waiting for determination Vonda Prior Network/Telecom Engineer III Endocrinology & Metabolic [place] documented in this encounter [facility] 11-11-2024 Instructions Torsten Burrows MD - 11/11/2024 9:31 AM EDT Please start synthroid brand name - 25 mcg daily- pending prior authorization Labs to be done in 8 weeks documented in this encounter [facility] 11-11-2024 Note HNO ID: [id number] Author: TORSTEN BURROWS MD Service: ? Author Type: Physician Type: Progress Notes Filed: 11/11/2024 09:38 Note Text: [facility] Follow up note Virtual Visit (Audio/Visual)"I have discussed the nature of this visit with the patient which will occur via [facility] (Phone, Virtual Visit) and he agrees to proceed with this interaction". I have communicated my name and active licensure. The patient's identity and physical location were verified at the time of this visit. Either the patient or their legal front desk representative has been informed of the risks and benefits of -- and alternatives to -- treatment through a remote evaluation and consents to proceed with the evaluation remotely. CONSULTING PROVIDER: Amilcar Rivera PA-C My final recommendations will be communicated back to the requesting provider by way of shared Medical record or a letter via [place] mail Subjective: Crystal Machuca is a 34 year old female here for follow up of hypothyroidism. Initial visit: 09/23/24 History in brief, Patient reports she was gaining significant amount of weight and hence her psychiatrist started her on LT4 (the dose as per chart review appears to be 50 mcg daily) for reasons to lose weight and help with fatigue despite having normal thyroid labs She reports she felt okay after that but when she saw her new Primary care provider in 11/2023, labs for thyroid were done and showed low TSH due to which LT4 was discontinued Labs done in Apr 2024 after this have been normal Patient started feeling significantly tired in few months after. She also reports a weight gain of approximately 30 lbs from April to June, with continued gain of 10-15 lbs per month. PCP did thyroid labs in July 2024 with significantly abnormal labs and patient was started on LT4 25 mcg daily in 08/2024. Patient reports she has been experiencing symptoms of jitteriness, palpitations, feeling ,like "being on a stimulant", has heat intolerance, diarrhea, low appetite. Her cycles are regular Regarding weight loss, - Denies recent changes in stress levels. 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 - Attempts to jog but experiences dyspnea. - Denies use of supplements or [id number] medications. Significantly elevated TSH concerning for hypothyroidism was diagnosed in July 2024 when labs were done for fatigue, weight gain Cause of hypothyroidism: unclear She was then started on LT4 again at 25 mcg daily She denied any supplement or iodine use. Denied any infections, sore throat, fever , neck pain few weeks or days prior to labs done in 07/2024 Current treatment: none Prior treatment: none prior to that for few weeks Interval history: 11/11/24: Patient reports she stopped taking the levothyroxine after last appt and she felt better with her symptoms of jitteriness She is returning after follow up labs She is also established with weight management team now, initial appt was on 10/27/24 REVIEW OF SYSTEMS: 10 point ROS was reviewed and negative unless indicated in the HPI ALLERGIES: ALLERGIES Allergen Reactions Augmentin [Amoxicil* Hives [place] [Hydrocodone-* Vomiting Penicillin Hives Tramadol Vomiting MEDICATIONS: Current Outpatient Medications on File Prior to Visit Medication Sig tiZANidine (ZANAFLEX) 4 mg tablet Take 1 tablet by mouth once daily. QUEtiapine (SEROQUEL) 25 mg tablet Take 25 mg by mouth two times a day. levothyroxine (SYNTHROID) 25 mcg tablet Take 1 tablet by mouth daily before breakfast. famotidine (PEPCID) 40 mg tablet Take 1 tablet by mouth daily at bedtime. SUBLOCADE 100 mg/0.5 mL injection FLUoxetine (PROZAC) 20 mg capsule Take 1 capsule by mouth every afternoon. lithium carbonate 600 mg capsule Take 600 mg by mouth at bedtime as needed. No current facility-administered medications on file prior to visit. PAST MEDICAL HISTORY: PAST MEDICAL HISTORY Diagnosis Date Anorexia nervosa (HCC) Asthma (HCC) Bipolar disorder (HCC) Borderline personality disorder (HCC) Generalized anxiety disorder Headache High risk sexual behavior pt stopped B/C and she is on high risk antipsychotic medication HRP (high risk ) (HCC) substance abuse/bipolardisorder/personality disorder Menometrorrhagia Nausea and vomiting Opioid dependence (HCC) on suboxone psych/addiction dr delarosa Patient noncompliance Polysubstance dependence (HCC) heroin, thc, opiates , cocaine Polysubstance dependence (HCC) Subjective visual disturbance Tobacco dependence syndrome Ulcerative colitis (HCC) PAST SURGICAL HISTORY: PAST SURGICAL HISTORY Procedure Laterality Date ADENOIDECTOMY HX 02/26/2013 DELIVERY ONLY Bilateral 07/16/2023 bilateral salpingectomy COLONOSCOPY SCREENING dx - ulcerative, lymphocitic - Dr. Cummings, Dr. Hutton - dx at 13yrs old EGD W/O [facility] SPEC ELVIA (more content not included)... [facility] 11-11-2024 History of Present illness Narrative [facility] Follow up note Virtual Visit (Audio/Visual)"I have discussed the nature of this visit with the patient which will occur via [facility] (Phone, Virtual Visit) and he agrees to proceed with this interaction". I have communicated my name and active licensure. The patient's identity and physical location were verified at the time of this visit. Either the patient or their legal front desk representative has been informed of the risks and benefits of -- and alternatives to -- treatment through a remote evaluation and consents to proceed with the evaluation remotely. CONSULTING PROVIDER: Amilcar Rivera PA-C My final recommendations will be communicated back to the requesting provider by way of shared Medical record or a letter via [place] mail Subjective: Crystal Machuca is a 34 year old female here for follow up of hypothyroidism. Initial visit: 09/23/24 History in brief, Patient reports she was gaining significant amount of weight and hence her psychiatrist started her on LT4 (the dose as per chart review appears to be 50 mcg daily) for reasons to lose weight and help with fatigue despite having normal thyroid labs She reports she felt okay after that but when she saw her new Primary care provider in 11/2023, labs for thyroid were done and showed low TSH due to which LT4 was discontinued Labs done in Apr 2024 after this have been normal Patient started feeling significantly tired in few months after. She also reports a weight gain of approximately 30 lbs from April to June, with continued gain of 10-15 lbs per month. PCP did thyroid labs in July 2024 with significantly abnormal labs and patient was started on LT4 25 mcg daily in 08/2024. Patient reports she has been experiencing symptoms of jitteriness, palpitations, feeling ,like "being on a stimulant", has heat intolerance, diarrhea, low appetite. Her cycles are regular Regarding weight loss, - Denies recent changes in stress levels. 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 - Attempts to jog but experiences dyspnea. - Denies use of supplements or [id number]-psrlvxz medications. Significantly elevated TSH concerning for hypothyroidism was diagnosed in July 2024 when labs were done for fatigue, weight gain Cause of hypothyroidism: unclear She was then started on LT4 again at 25 mcg daily She denied any supplement or iodine use. Denied any infections, sore throat, fever , neck pain few weeks or days prior to labs done in 07/2024 Current treatment: none Prior treatment: none prior to that for few weeks Interval history: 11/11/24: Patient reports she stopped taking the levothyroxine after last appt and she felt better with her symptoms of jitteriness She is returning after follow up labs She is also established with weight management team now, initial appt was on 10/27/24 REVIEW OF SYSTEMS: 10 point ROS was reviewed and negative unless indicated in the HPI ALLERGIES: ALLERGIES Allergen Reactions Augmentin [Amoxicil* Hives [place] [Hydrocodone-* Vomiting Penicillin Hives Tramadol Vomiting MEDICATIONS: Current Outpatient Medications on File Prior to Visit Medication Sig tiZANidine (ZANAFLEX) 4 mg tablet Take 1 tablet by mouth once daily. QUEtiapine (SEROQUEL) 25 mg tablet Take 25 mg by mouth two times a day. levothyroxine (SYNTHROID) 25 mcg tablet Take 1 tablet by mouth daily before breakfast. famotidine (PEPCID) 40 mg tablet Take 1 tablet by mouth daily at bedtime. SUBLOCADE 100 mg/0.5 mL injection FLUoxetine (PROZAC) 20 mg capsule Take 1 capsule by mouth every afternoon. lithium carbonate 600 mg capsule Take 600 mg by mouth at bedtime as needed. No current facility-administered medications on file prior to visit. PAST MEDICAL HISTORY: PAST MEDICAL HISTORY Diagnosis Date Anorexia nervosa (HCC) Asthma (HCC) Bipolar disorder (HCC) Borderline personality disorder (HCC) Generalized anxiety disorder Headache High risk sexual behavior pt stopped B/C and she is on high risk antipsychotic medication HRP (high risk ) (HCC) substance abuse/bipolardisorder/personality disorder Menometrorrhagia Nausea and vomiting Opioid dependence (HCC) on suboxone psych/addiction dr delarosa Patient noncompliance Polysubstance dependence (HCC) heroin, thc, opiates , cocaine Polysubstance dependence (HCC) Subjective visual disturbance Tobacco dependence syndrome Ulcerative colitis (HCC) PAST SURGICAL HISTORY: PAST SURGICAL HISTORY Procedure Laterality Date ADENOIDECTOMY HX 02/26/2013 DELIVERY ONLY Bilateral 07/16/2023 bilateral salpingectomy COLONOSCOPY SCREENING dx - ulcerative, lymphocitic - Dr. Cummings, Friend - dx at 13yrs old EGD W/O [facility] SPEC VARICIES INJ Ulcers in stomach ORAL SURGERY PROCEDURE wisdom teeth removed TONSILLECTOMY HX 02/26/2013 FAMILY HISTORY: FAMILY HISTORY Problem Relation Age of Onset Diabetes Mother COPD Father No Known Problems Brother Lymphoma Maternal Grandmother Cancer Maternal Grandfather Colon, lung, brain, throat cancer other (heart disease [Other]) Maternal Grandfather Breast Cancer Paternal Grandmother Diabetes Paternal Grandfather Hypertension Paternal Grandfather Hyperlipidemia Paternal Grandfather SOCIAL HISTORY: Social History Tobacco Use Smoking status: Every Day Current packs/day: 0.50 Types: Cigarettes Smokeless tobacco: Never Vaping Use Vaping status: Former Substance Use Topics Alcohol use: No Drug use: Not Currently Types: Marijuana, Narcotics Comment: mjn during ; but not recently; Hx opiod use - attends AA PHYSICAL EXAM: LMP 11/03/2023 (Exact Date) Deferred LABS: TSH Date Value Ref Range Status 10/26/2024 16.600 (H) 0.270 - 4.200 mIU/L Final Comment: If the patient is , TSH reference range varies by gestational period: First Trimester (weeks 9-12): 0.180-2.990 mIU/L Second Trimester: 0.110-3.980 mIU/L Third Trimester: 0.480-4.710 mIU/L Thomas Hinojosa et al. A Practical Approach for the Verifications and Determination of Site- and Trimester-Specific Reference Intervals for Thyroid Function tests in . Thyroid, 2019:29:3:412-420. Tin Montelongo, et al. 2017 Guidelines of the [place] [employer] for the Diagnosis and Management of Thyroid Disease during and the . Thyroid, 2017:27:3:315-389. Free T4 Date Value Ref Range Status 10/26/2024 0.7 (L) 0.9 - 1.7 ng/dL Final Latest Reference Range & Units 12/10/12 13:45 09/07/14 14:15 09/02/23 15:39 09/26/23 15:01 10/24/23 10:37 12/11/23 10:28 04/22/24 09:56 08/11/24 14:20 Free T4 0.9 - 1.7 ng/dL 1.1 1.0 1.6 1.1 0.8 (L) TSH 0.270 - 4.200 mIU/L 0.938 0.878 3.800 3.260 2.760 0.035 (L) 0.681 17.800 (H) Free T3 2.3 - 4.1 pg/mL 2.8 2.8 4.4 (H) 3.0 2.9 Prolactin 4.4 - 33.8 ng/mL 14.9 Cortisol 4.8 - 19.5 ug/dL 4.6 (L) Vitamin D 25 Hydroxy 31.0 - 80.0 ng/mL 30.4 (L) (L): Data is abnormally low (H): Data is abnormally high Latest Ref Rng 10/26/2024 TSH 0.270 - 4.200 mIU/L 16.600 (H) Free T4 0.9 - 1.7 ng/dL 0.7 (L) Thyroglobulin Ab, Serum <4.0 IU/mL <0.9 THYROID PEROXIDASE ANTIBODY <5.6 IU/mL <3.0 Legend: (H) High (L) Low ASSESSMENT/PLAN: Overt Hypothyroidism: Due to intolerance to levothyroxine and significantly elevated TSH, I discussed with her about trialing brand name synthroid. She may require 50-75 mcg daily of LT4, but due to symptoms described, will start low at 25 mcg daily, and adjust as needed. Synthroid pending prior auth Appropriate method of taking medication reviewed with her Repeat labs in 8 weeks Plan: 1. Hypothyroidism, unspecified type (Primary) - SYNTHROID 25 mcg tablet; Take 1 tablet by mouth once daily. Dispense: 90 tablet; Refill: 0 - THYROID STIMULATING HORMONE; Future - T4 FREE/FREE THYROXINE; Future Follow up in 9 weeks with labs Medical Decision Making: Problems: Moderate: 1+ chronic illnesses with change Data: Unique test result(s) reviewed: 3+ Unique test(s) ordered: 2 Risk: Moderate: Drug management Medical Decision Making Level: 4 - Moderate Torsten Burrows MD Endocrinology Associate Staff [facility] Endocrinology and Metabolism [place] [phone] documented in this encounter [facility] 10-27-2024 Instructions Phyllis De Leon MD - 10/27/2024 12:08 PM EDT Start metformin ER 500 mg daily. Start by taking 1 tablet with dinner. After 2 weeks, if you are tolerating the medication, increase to 2 tablets daily (can take at same time or separate into 2 doses, with food). Let me know how you are doing--we can continue to increase the medication to maximum of 2000 mg (4 pills) per day for maximum weight loss benefit. Most common side effects are stomach upset--cramping, diarrhea, flatulence--always take with food. General recommendations: - Healthy diet, routine exercise, good sleep hygiene and stress management are all important for weight loss, in addition to any medications that may be prescribed. - Recommend a daily probiotic (such as PB8, Culturelle, Align, or similar) for healthy gut biome - Weigh yourself at least once per week to keep track of progress - Adequate, good quality sleep is an important part of weight management. Even individuals who function well on little sleep should still aim for 7-9 hours of sleep nightly and routine sleep schedules whenever possible. - For females of child-bearing age: it is not recommended to become while taking medications for weight loss. Please contact our office if you become . More specific tips: - Use a diet tracker like MyWeddingfulnessPal on your phone to get an idea of how many calories, protein, carbohydrates, etc. you are getting in your diet - Aim for 100-120 grams of healthy protein every day (this includes foods like chicken, turkey, fish, moroccan yogurt, cottage cheese, and plant based protein like nuts/seeds/legumes/tofu; try to limit beef and pork even if they are lean cuts of meat) - Aim for no more than 30-45 grams of carbohydrate per meal and limit to 125-150 grams of carbohydrate per day. Try to make carbohydrate sources healthier by limiting white breads, white pasta/rice, processed foods, snack foods and sweets; instead choose more fruits, veggies, whole grains, beans, and dairy products like moroccan yogurt or cottage cheese. - Aim for at least 20-30 grams of fiber every day from fruits, veggies, beans, nuts, and whole grains. Higher fiber diets can help you feel pereira longer and improve your health in other ways. - Don't skip meals--recommend eating 4-6 times per day. Having a routine eating schedule helps to re-normalize appetite signals and prevents you from getting "too hungry" (which can then lead to overeating or choosing higher calorie foods). - If you don't have access or don't like going to a gym, try an at-home workout. There are a lot of options available for free on YouTube or try a free chris such as VeriShow. documented in this encounter [facility] 10-27-2024 History of Present illness Narrative Images from the original note were not included. [facility] VIRTUAL VISIT--INITIAL VISIT This is a virtual visit using Indexingom Video Visit, switched to phone after exam completed due to technical issues. It required patient-provider interaction for the medical decision making as documented below. I have communicated my name and active licensure. The patient's identity and physical location were verified at the time of this visit. Either the patient or their legal front desk representative has been informed of the risks and benefits of -- and alternatives to -- treatment through a remote evaluation and consents to proceed with the evaluation remotely. HISTORY OF PRESENT ILLNESS CC: Patient presents for weight management. Referred by: Torsten Burrows MD Consultation requested for an opinion regarding weight management and my final recommendations will be communicated back to the requesting physician by way of shared medical record or letter via US mail. Patient is a 34 year old female with overweight/obesity. Relevant PMH: abnormal TSH, bipolar disorder, OUD in remission Current medications promoting weight loss: -- Current obesogenic medications: lithium, seroquel Patient goals/motivation for weight loss: general health, feel better about herself Weight history and trajectory: Struggled with weight gradually over the years Weight at end of HS 140 lbs Weight in mid-20s 170s Lost a lot of weight in her late 20s when she was struggling with addiction June 2023 had baby, weight was around 170s lbs. After this states she started gaining a lot of weight. Current weight: 243 lbs Maximum weight: now Previous attempt for weight loss: Self-directed diet and exercise programs Diet and appetite: 24 hour recall (Saturday) Eggs and apple Salad with chicken Fried rice with veggies Water No snacks Today so far 12 pm Eggs and apple Appetite level: low appetite, doesn't usually feel like eating Eats 3 meals per day and no snacks Feels diet is very healthy Sugar-containing beverages: no EtOH: no Eating out/take out: 1 meal per week Emotional eating: no Large portions or overeating: denies Late night eating: no Exercise Walks 1.5 hours with baby every day 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 Access to exercise equipment: no Physical limitations: no Sleep 8-9 hours per day Sometimes not rested BARBY: never tested, denies snoring 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 associated weight gain: no Mood, stress: Follows with psychiatry and a therapist outside of [facility] Struggles with bipolar, feels mood is stable 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 weight watchers, Noom, medically supervised programs, etc.)? no History of bariatric surgery or interest in bariatric surgery: would be open Medical history pertaining to anti-obesity medications: History of pancreatitis or gallstones: no History of kidney stones: no History of seizures: no Current opiate use: on Sublocade History of glaucoma: no History of stroke, heart-related issues or uncontrolled HTN: no Personal/family history of MEN2, MTC: no History of diabetic retinopathy: no Method of contraception if woman of child bearing age: tubes removed Review Of Systems Per HPI MEDICAL, FAMILY, and SOCIAL HISTORY (reviewed and updated in chart) ACTIVE PROBLEM LIST Bipolar Disorder (Hcc) Tobacco Use Disorder History of Posttraumatic Stress Disorder (Ptsd) History of Section History of Opioid Abuse (Hcc) Obesity, Class I, Bmi 30-34.9 Obesity, Class II, Bmi 35-39.9 Left-Sided Low Back Pain With Left-Sided Sciatica Neck Pain On Left Side Cervical Radiculopathy Current Outpatient Medications on File Prior to Visit Medication Sig montelukast (SINGULAIR) 10 mg tablet Take 1 tablet by mouth daily at bedtime. tiZANidine (ZANAFLEX) 4 mg tablet Take 1 tablet by mouth once daily. QUEtiapine (SEROQUEL) 25 mg tablet Take 25 mg by mouth two times a day. famotidine (PEPCID) 40 mg tablet Take 1 tablet by mouth daily at bedtime. SUBLOCADE 100 mg/0.5 mL injection FLUoxetine (PROZAC) 20 mg capsule Take 1 capsule by mouth every afternoon. lithium carbonate 600 mg capsule Take 750 mg by mouth at bedtime as needed. No current facility-administered medications on file prior to visit. VIDEO EXAM: (if completed, performed via video enabled technology) GENERAL: alert and appropriate, in no distress, well-hydrated, well nourished, and happy, smiling, interactive PERTINENT LABORATORY AND IMAGING: All pertinent laboratory / test results were reviewed. Latest Ref Rng 08/11/2024 09/02/2024 10/26/2024 Protein, Total 6.3 - 8.0 g/dL 7.6 6.6 Albumin 3.9 - 4.9 g/dL 4.3 4.1 Calcium 8.5 - 10.2 mg/dL 9.3 9.6 Bilirubin, Total 0.2 - 1.3 mg/dL 0.2 0.2 Alkaline Phosphatase 34 - 123 U/L 69 67 AST 13 - 35 U/L 18 16 ALT 7 - 38 U/L 11 11 Glucose 74 - 99 mg/dL 94 112 (H) BUN 7 - 21 mg/dL 11 11 Creatinine 0.58 - 0.96 mg/dL 0.64 0.62 Sodium 136 - 144 mmol/L 135 (L) 136 Potassium 3.7 - 5.1 mmol/L 4.0 4.1 Chloride 98 - 107 mmol/L 105 102 CO2 22 - 30 mmol/L 18 (L) 21 (L) Anion Gap 8 - 15 mmol/L 12 13 eGFR >=60 mL/min/1.73m 121 122 TSH 0.270 - 4.200 mIU/L 17.800 (H) Free T4 0.9 - 1.7 ng/dL 0.8 (L) Cortisol 4.8 - 19.5 ug/dL 4.6 (L) THYROID PEROXIDASE ANTIBODY <5.6 IU/mL <3.0 Legend: (L) Low (H) High ASSESSMENT: (E66.01) Severe obesity (BMI >= 40) (HCC) (primary encounter diagnosis) (F41.9, F32.A) Anxiety and depression (Z71.3) Dietary counseling (Z71.82) Exercise counseling Patient comes today for evaluation of obesity and its comorbidities. Diagnosis: OBESITY CLASS 3 with a BMI of 40.8. Patient tried different weight loss modalities in the past including Self-directed diet and exercise programs . Pertinent comorbidities include: depression/anxiety. Our goal is to treat obesity to decrease long-term medical complications, comorbidities and improve lifestyle. Today discussion included obesity set point, metabolic adaptation, weight plateau, lifestyle intervention and the possibility of pharmacotherapy. PLAN: -- Goal: -- Engage in sustainable lifestyle changes -- Weight loss of 5-10% in the next 6 months -- Continue lifestyle intervention/weight loss program involving dietary changes, personalized exercise program and consideration of anti-obesity medications -- Appetite control/diet: -- Appetite: low appetite reported -- Dietitian consult: No--pt declines -- Diet: Low carb and Mediterranean -- Portion control -- Increase healthy protein and fiber in diet -- Recommend trying a tracking chris such as NanoICE or similar -- Discussed appetite signal dysregulation and emphasized importance of a structured eating pattern--recommended 4-6 meals/snacks per day, emphasized importance of including a healthy source of protein with all meals. -- Exercise -- Discussed basic exercise recommendations (aerobic/resistance training), the role of exercise on weight loss, maintenance, and muscle mass preservation -- health and safety trainer consult: No, declines -- Recommend gradual increase in exercise. Goal is 150+ minutes moderate-intensity exercise per week + strength training/resistance exercise 2 days per week; also discussed that shorter durations of exercise at higher intensity can still be effective and may help with time management. -- Sleep: -- Recommend 7-9 hours sleep per night -- Discussed the importance of sleep hygiene -- Sleep apnea orders placed: may benefit in future -- Stress: -- Discussed the effect of stress and its relationship with weight gain -- Follows with behavioral health -- Weight Loss Medication/Anti-Obesity Medication: -- I have reviewed with the patient the possibility of using weight loss-promoting medications and the various options available. Also reviewed risk of weight regain after stopping AOMs. -- Will start metformin ER 500 mg daily > 1000 mg daily after 2 weeks if tolerating, for insulin resistance and to promote weight loss. Can continue to increase gradually if tolerated to maximum of 2000 mg daily. Discussed r/b/a of medication. -- Pt does not want to take any stimulants and would avoid phentermine until euthyroid -- Didn't tolerate bupropion in past -- GLP not covered by insurance -- Could consider topiramate, though would need to clear with psychiatry -- Bariatric consideration: -- BMI referral: No but may consider in future -- Other: -- Discussed weight management and healthy dietary/lifestyle changes will be helpful in managing patient's history of anxiety/depression. Also follows with PCP and/or specialists for chronic issues. Orders placed: Orders Placed This Encounter metFORMIN ER (GLUCOPHAGE XR) 500 mg 24 hr tablet Sig: Take 1 tablet by mouth daily with dinner for 14 days, THEN 2 tablets daily with dinner. Dispense: 180 tablet Refill: 1 I have reviewed the ROS/Questionnaire with patient and recommend the following: Pt will follow-up with PCP for chronic health issues and preventive health screenings. All questions answered today. Follow-up in 4 months Signed: Phyllis De Leon MD, RD [facility] documented in this encounter [facility] 10-27-2024 Note HNO ID: [id number] Author: PHYLLIS DE LEON MD Service: ? Author Type: Physician Type: Progress Notes Filed: 10/27/2024 12:12 Note Text: [facility] VIRTUAL VISIT--INITIAL VISIT This is a virtual visit using Indexingom Video Visit, switched to phone after exam completed due to technical issues. It required patient-provider interaction for the medical decision making as documented below. I have communicated my name and active licensure. The patient's identity and physical location were verified at the time of this visit. Either the patient or their legal front desk representative has been informed of the risks and benefits of -- and alternatives to -- treatment through a remote evaluation and consents to proceed with the evaluation remotely. HISTORY OF PRESENT ILLNESS CC: Patient presents for weight management. Referred by: Torsten Burrows MD Consultation requested for an opinion regarding weight management and my final recommendations will be communicated back to the requesting physician by way of shared medical record or letter via US mail. Patient is a 34 year old female with overweight/obesity. Relevant PMH: abnormal TSH, bipolar disorder, OUD in remission Current medications promoting weight loss: -- Current obesogenic medications: lithium, seroquel Patient goals/motivation for weight loss: general health, feel better about herself Weight history and trajectory: Struggled with weight gradually over the years Weight at end of HS 140 lbs Weight in mid-20s 170s Lost a lot of weight in her late 20s when she was struggling with addiction June 2023 had baby, weight was around 170s lbs. After this states she started gaining a lot of weight. Current weight: 243 lbs Maximum weight: now Previous attempt for weight loss: Self-directed diet and exercise programs Diet and appetite: 24 hour recall (Saturday) Eggs and apple Salad with chicken Fried rice with veggies Water No snacks Today so far 12 pm Eggs and apple Appetite level: low appetite, doesn't usually feel like eating Eats 3 meals per day and no snacks Feels diet is very healthy Sugar-containing beverages: no EtOH: no Eating out/take out: 1 meal per week Emotional eating: no Large portions or overeating: denies Late night eating: no Exercise Walks 1.5 hours with baby every day 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 Access to exercise equipment: no Physical limitations: no Sleep 8-9 hours per day Sometimes not rested BARBY: never tested, denies snoring 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 associated weight gain: no Mood, stress: Follows with psychiatry and a therapist outside of [facility] Struggles with bipolar, feels mood is stable 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 weight watchers, Noom, medically supervised programs, etc.)? no History of bariatric surgery or interest in bariatric surgery: would be open Medical history pertaining to anti-obesity medications: History of pancreatitis or gallstones: no History of kidney stones: no History of seizures: no Current opiate use: on Sublocade History of glaucoma: no History of stroke, heart-related issues or uncontrolled HTN: no Personal/family history of MEN2, MTC: no History of diabetic retinopathy: no Method of contraception if woman of child bearing age: tubes removed Review Of Systems Per HPI MEDICAL, FAMILY, and SOCIAL HISTORY (reviewed and updated in chart) ACTIVE PROBLEM LIST Bipolar Disorder (Hcc) Tobacco Use Disorder History of Posttraumatic Stress Disorder (Ptsd) History of Section History of Opioid Abuse (Hcc) Obesity, Class I, Bmi 30-34.9 Obesity, Class II, Bmi 35-39.9 Left-Sided Low Back Pain With Left-Sided Sciatica Neck Pain On Left Side Cervical Radiculopathy Current Outpatient Medications on File Prior to Visit Medication Sig montelukast (SINGULAIR) 10 mg tablet Take 1 tablet by mouth daily at bedtime. tiZANidine (ZANAFLEX) 4 mg tablet Take 1 tablet by mouth once daily. QUEtiapine (SEROQUEL) 25 mg tablet Take 25 mg by mouth two times a day. famotidine (PEPCID) 40 mg tablet Take 1 tablet by mouth daily at bedtime. SUBLOCADE 100 mg/0.5 mL injection FLUoxetine (PROZAC) 20 mg capsule Take 1 capsule by mouth every afternoon. lithium carbonate 600 mg capsule Take 750 mg by mouth at bedtime as needed. No current facility-administered medications on file prior to visit. VIDEO EXAM: (if completed, performed via video enabled technol (more content not included)... [facility] 10-06-2024 Instructions Janet Rodas, DO - 10/06/2024 10:24 AM EDT Your ultrasound showed reflux (valves not working as well) in your both right and left saphenous veins. I would recommend a laser ablation to treat the vein. In the laser procedure, we get into the vein like starting an IV and place the laser catheter inside the vein. After we place the laser, we surround the vein with a numbing fluid. This fluid allows the vein to collapse onto the laser fiber and allows us to use less energy. Also the numbing fluid acts to absorb the heat from the laser. After we put in the numbing fluid, we activate the laser and close off the vein. This will help decrease the flow through the vein and make your leg feel better. You may notice the varicose veins decrease in size following the procedure. After the laser we will apply a compression stockings or wrap your leg with a compression wrap. You will get an ultrasound a week later. There are three big risks with the procedure- 1. Blood clot in the larger vein in your leg (DVT)- to prevent that we use ultrasound during the procedure and have you get an ultrasound a week later. Also we want you active and moving following the procedure. 2. Burn to your skin- we don't see this anymore since we use that numbing fluid. 3. Numbness on the inside portion of your leg- this is due to the heat from the laser irritating a nerve that travels with the vein. This typically will improve over time. Downtime is minimal following the procedure. We want you up and active. We do ask that you don't fly or take long car trips the week following the procedure. You will need to wear a compression stockings for two weeks following the procedure. I can have my office work on getting the procedure scheduled if you would like. documented in this encounter [facility] 10-06-2024 Note HNO ID: [id number] Author: JANET RODAS DO Service: ? Author Type: Physician Type: Progress Notes Filed: 10/06/2024 16:39 Note Text: Heart [facility] Vascular and Thoracic [place] DEPARTMENT OF VASCULAR SURGERY OUTPATIENT VISIT DATE October 06, 2024 OUTPATIENT VISIT TYPE ESTABLISHED SERVICE DATE: 10/06/2024 SERVICE TIME: 10:12 AM PRIMARY CARE PHYSICIAN: Amilcar Rivera PA-C HISTORY OF PRESENT ILLNESS: Ms. Machuca is a 34 year old female who presents today for a vascular surgery follow-up visit for symptomatic varicose veins. She denies new complaints. She does wear compression stockings. States legs are sore and tender throughout the day. She also describes a tightness. PAST MEDICAL HISTORY Diagnosis Date Anorexia nervosa (HCC) Asthma (HCC) Bipolar disorder (HCC) Borderline personality disorder (HCC) Generalized anxiety disorder Headache High risk sexual behavior pt stopped B/C and she is on high risk antipsychotic medication HRP (high risk ) (HCC) substance abuse/bipolardisorder/personality disorder Menometrorrhagia Nausea and vomiting Opioid dependence (HCC) on suboxone psych/addiction dr delarosa Patient noncompliance Polysubstance dependence ([facility]) heroin, thc, opiates , cocaine Polysubstance dependence ([facility]) Subjective visual disturbance Tobacco dependence syndrome Ulcerative colitis ([facility]) PAST SURGICAL HISTORY Procedure Laterality Date ADENOIDECTOMY HX 02/26/2013 DELIVERY ONLY Bilateral 07/16/2023 bilateral salpingectomy COLONOSCOPY SCREENING dx - ulcerative, lymphocitic - Dr. Cummings, Friend - dx at 13yrs old EGD W/O BRSH SPEC VARICIES INJ Ulcers in stomach ORAL SURGERY PROCEDURE wisdom teeth removed TONSILLECTOMY HX 02/26/2013 SOCIAL HISTORY Social History Tobacco Use Smoking status: Every Day Current packs/day: 0.50 Types: Cigarettes Smokeless tobacco: Never Vaping Use Vaping status: Former Substance Use Topics Alcohol use: No Drug use: Not Currently Types: Marijuana, Narcotics Comment: mjn during ; but not recently; Hx opiod use - attends AA MEDICATIONS: montelukast (SINGULAIR) 10 mg tablet Take 1 tablet by mouth daily at bedtime. tiZANidine (ZANAFLEX) 4 mg tablet Take 1 tablet by mouth once daily. QUEtiapine (SEROQUEL) 25 mg tablet Take 25 mg by mouth two times a day. famotidine (PEPCID) 40 mg tablet Take 1 tablet by mouth daily at bedtime. SUBLOCADE 100 mg/0.5 mL injection FLUoxetine (PROZAC) 20 mg capsule Take 1 capsule by mouth every afternoon. lithium carbonate 600 mg capsule Take 750 mg by mouth at bedtime as needed. ALLERGIES: ALLERGIES Allergen Reactions Augmentin [Amoxicil* Hives [place] [Hydrocodone-* Vomiting Penicillin Hives Tramadol Vomiting PHYSICAL EXAM: BP 129/80 (BP Site: Left Arm, BP Position: Sitting, BP Cuff Size: Regular Adult) Pulse 63 LMP 11/03/2023 (Exact Date) SpO2 99% General: Alert and oriented Extremities: Edema and Varicose veins Neurological: Normal cognition and motor skills. Vascular: Posterior Tibial Right: Normal - Left: Normal Diagnostic tests reviewed for today's visit: Most recent labs Most recent imaging Venous Reflux Testing RIGHT SIDE - DEEP VEINS Negative for acute deep vein thrombosis in vessels visualized. Positive for valvular incompetency in the common femoral vein. RIGHT SIDE - SUPERFICIAL VEINS Positive for valvular incompetency in the great saphenous vein. Varicosity arises mid thigh and rejoins the great saphenous at mid calf. Acute superficial thrombophlebitis in the varicosity off the great saphenous vein at the knee crease. (Appears acute on chronic thrombus) The great saphenous vein is small and discontinuous distal thigh to mid calf. Negative for valvular incompetency in the small saphenous vein. LEFT SIDE - DEEP VEINS Negative for acute deep vein thrombosis in vessels visualized. Positive for valvular incompetency in the common femoral vein. LEFT SIDE - SUPERFICIAL VEINS Positive for valvular incompetency in the great saphenous vein. Varicosity arises mid thigh and rejoins the great saphenous vein at mid calf. Chronic post-thrombotic change in the varicosity off the great saphenous vein at the proximal calf. The great saphenous vein is discontinuous mid thigh to mid calf. Positive for valvular incompetency in the small saphenous vein. Varicosities mid calf communicate with great saphenous vein varicosities. IMPRESSION: Ms. Machuca is a 34 year old female with symptomatic varicose veins . PLAN and RECOMMENDATIONS: CEAP CLASSIFICATION OF VENOUS DISEASE: CLINICAL C2: Varicose veins C3: Edema S: Symptomatic, including ache, pain, tightness, skin irritation, heaviness, muscle cramps and other complaints attribultable to venous dysfunction ETIOLOGY Ep: Primary ANATOMIC As: Superficial veins PATHOPYSIOLOGIC Pr: Reflux INDICATION(S) FOR SURGERY: Left great saphenous vein reflux, Gr (more content not included)... [facility] 10-06-2024 History of Present illness Narrative Images from the original note were not included. [facility] [place] DEPARTMENT OF VASCULAR SURGERY OUTPATIENT VISIT DATE October 06, 2024 OUTPATIENT VISIT TYPE ESTABLISHED SERVICE DATE: 10/06/2024 SERVICE TIME: 10:12 AM PRIMARY CARE PHYSICIAN: Amilcar Rivera PA-C HISTORY OF PRESENT ILLNESS: Ms. Machuca is a 34 year old female who presents today for a vascular surgery follow-up visit for symptomatic varicose veins. She denies new complaints. She does wear compression stockings. States legs are sore and tender throughout the day. She also describes a tightness. PAST MEDICAL HISTORY Diagnosis Date Anorexia nervosa (HCC) Asthma (HCC) Bipolar disorder (HCC) Borderline personality disorder (HCC) Generalized anxiety disorder Headache High risk sexual behavior pt stopped B/C and she is on high risk antipsychotic medication HRP (high risk ) ([facility]) substance abuse/bipolardisorder/personality disorder Menometrorrhagia Nausea and vomiting Opioid dependence (HCC) on suboxone psych/addiction dr delarosa Patient noncompliance Polysubstance dependence ([facility]) heroin, thc, opiates , cocaine Polysubstance dependence ([facility]) Subjective visual disturbance Tobacco dependence syndrome Ulcerative colitis (HCC) PAST SURGICAL HISTORY Procedure Laterality Date ADENOIDECTOMY HX 02/26/2013 DELIVERY ONLY Bilateral 07/16/2023 bilateral salpingectomy COLONOSCOPY SCREENING dx - ulcerative, lymphocitic - Dr. Cummings, Friend - dx at 13yrs old EGD W/O BRSH SPEC VARICIES INJ Ulcers in stomach ORAL SURGERY PROCEDURE wisdom teeth removed TONSILLECTOMY HX 02/26/2013 SOCIAL HISTORY Social History Tobacco Use Smoking status: Every Day Current packs/day: 0.50 Types: Cigarettes Smokeless tobacco: Never Vaping Use Vaping status: Former Substance Use Topics Alcohol use: No Drug use: Not Currently Types: Marijuana, Narcotics Comment: mjn during ; but not recently; Hx opiod use - attends AA MEDICATIONS: montelukast (SINGULAIR) 10 mg tablet Take 1 tablet by mouth daily at bedtime. tiZANidine (ZANAFLEX) 4 mg tablet Take 1 tablet by mouth once daily. QUEtiapine (SEROQUEL) 25 mg tablet Take 25 mg by mouth two times a day. famotidine (PEPCID) 40 mg tablet Take 1 tablet by mouth daily at bedtime. SUBLOCADE 100 mg/0.5 mL injection FLUoxetine (PROZAC) 20 mg capsule Take 1 capsule by mouth every afternoon. lithium carbonate 600 mg capsule Take 750 mg by mouth at bedtime as needed. ALLERGIES: ALLERGIES Allergen Reactions Augmentin [Amoxicil* Hives [place] [Hydrocodone-* Vomiting Penicillin Hives Tramadol Vomiting PHYSICAL EXAM: BP 129/80 (BP Site: Left Arm, BP Position: Sitting, BP Cuff Size: Regular Adult) Pulse 63 LMP 11/03/2023 (Exact Date) SpO2 99% General: Alert and oriented Extremities: Edema and Varicose veins Neurological: Normal cognition and motor skills. Vascular: Posterior Tibial Right: Normal - Left: Normal Diagnostic tests reviewed for today's visit: Most recent labs Most recent imaging Venous Reflux Testing RIGHT SIDE - DEEP VEINS Negative for acute deep vein thrombosis in vessels visualized. Positive for valvular incompetency in the common femoral vein. RIGHT SIDE - SUPERFICIAL VEINS Positive for valvular incompetency in the great saphenous vein. Varicosity arises mid thigh and rejoins the great saphenous at mid calf. Acute superficial thrombophlebitis in the varicosity off the great saphenous vein at the knee crease. (Appears acute on chronic thrombus) The great saphenous vein is small and discontinuous distal thigh to mid calf. Negative for valvular incompetency in the small saphenous vein. LEFT SIDE - DEEP VEINS Negative for acute deep vein thrombosis in vessels visualized. Positive for valvular incompetency in the common femoral vein. LEFT SIDE - SUPERFICIAL VEINS Positive for valvular incompetency in the great saphenous vein. Varicosity arises mid thigh and rejoins the great saphenous vein at mid calf. Chronic post-thrombotic change in the varicosity off the great saphenous vein at the proximal calf. The great saphenous vein is discontinuous mid thigh to mid calf. Positive for valvular incompetency in the small saphenous vein. Varicosities mid calf communicate with great saphenous vein varicosities. IMPRESSION: Ms. Machuca is a 34 year old female with symptomatic varicose veins . PLAN and RECOMMENDATIONS: CEAP CLASSIFICATION OF VENOUS DISEASE: CLINICAL C2: Varicose veins C3: Edema S: Symptomatic, including ache, pain, tightness, skin irritation, heaviness, muscle cramps and other complaints attribultable to venous dysfunction ETIOLOGY Ep: Primary ANATOMIC As: Superficial veins PATHOPYSIOLOGIC Pr: Reflux INDICATION(S) FOR SURGERY: Left great saphenous vein reflux, Grade III-IV and Left secondary varicose vein disease, painful and Right great saphenous vein reflux, Grade III-IV, Right secondary varicose vein disease, painful, and Right secondary varicose vein thrombus disease, painful Reviewed the findings with Crystal. Would recommend bilateral GSV EVLTs as she has symptoms despite non-interventional therapy which have progressed and impact day to day activities. She would like to proceed with ablations. SIGNATURE: Janet Rodas DO PATIENT NAME: Crystal Machuca DATE: October 06, 2024 TIME: 10:12 AM documented in this encounter [facility] 09-30-2024 Note HNO ID: [id number] Author: AMILCAR RIVERA PA-C Service: ? Author Type: Physician Receiving Coordinator Type: Progress Notes Filed: 10/02/2024 15:47 Note Text: Subjective Crystal Machuca is a 34-year-old female, with a history of ulcerative colitis, asthma, and hypothyroidism, presenting for evaluation of chronic cough and follow-up on gastrointestinal and endocrine issues. Crystal reports a persistent cough, which she attributes to mold exposure in her apartment. She describes the cough as producing "nasty stuff" and notes that it worsens when she is at home, particularly at night when lying down. She also reports dyspnea, which she believes is exacerbated by her underlying asthma. She has previously been on Singulair but discontinued it at some point. She is a smoker. Crystal has a history of ulcerative colitis diagnosed in childhood, with subsequent diagnoses of ischemic colitis and lymphocytic colitis. She underwent a colonoscopy between August and October 2022, during which polyps were removed, but Crystal did not follow up due to . She is currently taking Pepcid, which provides intermittent relief, and is mindful of her diet. Crystal is also under the care of endocrinology for hypothyroidism and was recently taken off her thyroid medication due to elevated thyroid levels and suspected autoimmune inflammation. She reports that the medication made her feel jittery and anxious. She is also on fluoxetine, lithium, and Seroquel, which she takes at bedtime. She denies cephalalgia or dizziness. Review of Systems Constitutional: Negative for chills, fatigue and fever. Respiratory: Positive for cough and shortness of breath. Cardiovascular: Negative for chest pain and palpitations. Gastrointestinal: Negative for diarrhea, nausea and vomiting. Musculoskeletal: Negative for back pain and myalgias. Skin: Negative for rash. Neurological: Negative for dizziness, weakness and headaches. Psychiatric/Behavioral: Negative for sleep disturbance. PAST MEDICAL HISTORY Diagnosis Date Anorexia nervosa (HCC) Asthma (HCC) Bipolar disorder (HCC) Borderline personality disorder (HCC) Generalized anxiety disorder Headache High risk sexual behavior pt stopped B/C and she is on high risk antipsychotic medication HRP (high risk ) (HCC) substance abuse/bipolardisorder/personality disorder Menometrorrhagia Nausea and vomiting Opioid dependence (HCC) on suboxone psych/addiction dr delarosa Patient noncompliance Polysubstance dependence (HCC) heroin, thc, opiates , cocaine Polysubstance dependence (HCC) Subjective visual disturbance Tobacco dependence syndrome Ulcerative colitis (HCC) PAST SURGICAL HISTORY Procedure Laterality Date ADENOIDECTOMY HX 02/26/2013 DELIVERY ONLY Bilateral 07/16/2023 bilateral salpingectomy COLONOSCOPY SCREENING dx - ulcerative, lymphocitic - Dr. Cummings, Friend - dx at 13yrs old EGD W/O BRSH SPEC VARICIES INJ Ulcers in stomach ORAL SURGERY PROCEDURE wisdom teeth removed TONSILLECTOMY HX 02/26/2013 FAMILY HISTORY Problem Relation Age of Onset Diabetes Mother COPD Father No Known Problems Brother Lymphoma Maternal Grandmother Cancer Maternal Grandfather Colon, lung, brain, throat cancer other (heart disease [Other]) Maternal Grandfather Breast Cancer Paternal Grandmother Diabetes Paternal Grandfather Hypertension Paternal Grandfather Hyperlipidemia Paternal Grandfather Social History Tobacco Use Smoking status: Every Day Current packs/day: 0.50 Types: Cigarettes Smokeless tobacco: Never Vaping Use Vaping status: Former Substance Use Topics Alcohol use: No Drug use: Not Currently Types: Marijuana, Narcotics Comment: mjn during ; but not recently; Hx opiod use - attends AA Current Outpatient Medications Medication Sig tiZANidine (ZANAFLEX) 4 mg tablet Take 1 tablet by mouth once daily. QUEtiapine (SEROQUEL) 25 mg tablet Take 25 mg by mouth two times a day. famotidine (PEPCID) 40 mg tablet Take 1 tablet by mouth daily at bedtime. SUBLOCADE 100 mg/0.5 mL injection FLUoxetine (PROZAC) 20 mg capsule Take 1 capsule by mouth every afternoon. lithium carbonate 600 mg capsule Take 750 mg by mouth at bedtime as needed. montelukast (SINGULAIR) 10 mg tablet Take 1 tablet by mouth daily at bedtime. No current facility-administered medications for this visit. Objective BP 120/80 Pulse 85 Ht 5' 5" (1.651 m) Wt 245 lb (111.1 kg) LMP 11/03/2023 (Exact Date) SpO2 98% BMI 40.77 kg/m? Physical Exam GENERAL: NAD, alert and oriented. SKIN: Unremarkable, no rash or skin lesions. HEAD: Normocephalic. EYES: PERRLA, EOMI, conjunctiva clear. EARS: External ears normal, canals clear, TM's normal. NOSE/SINUSES: Nares normal. Septum midline. OROPHARYNX: Lips, mucosa, and tongue normal, good dentition. No oral lesions noted. NECK: Supple, no lymphadenopathy, normal thyroid, no ca (more content not included)... [facility] 09-30-2024 History of Present illness Narrative Images from the original note were not included. Subjective Crystal Machuca is a 34-year-old female, with a history of ulcerative colitis, asthma, and hypothyroidism, presenting for evaluation of chronic cough and follow-up on gastrointestinal and endocrine issues. Crystal reports a persistent cough, which she attributes to mold exposure in her apartment. She describes the cough as producing "nasty stuff" and notes that it worsens when she is at home, particularly at night when lying down. She also reports dyspnea, which she believes is exacerbated by her underlying asthma. She has previously been on Singulair but discontinued it at some point. She is a smoker. Crystal has a history of ulcerative colitis diagnosed in childhood, with subsequent diagnoses of ischemic colitis and lymphocytic colitis. She underwent a colonoscopy between August and October 2022, during which polyps were removed, but Crystal did not follow up due to . She is currently taking Pepcid, which provides intermittent relief, and is mindful of her diet. Crystal is also under the care of endocrinology for hypothyroidism and was recently taken off her thyroid medication due to elevated thyroid levels and suspected autoimmune inflammation. She reports that the medication made her feel jittery and anxious. She is also on fluoxetine, lithium, and Seroquel, which she takes at bedtime. She denies cephalalgia or dizziness. Review of Systems Constitutional: Negative for chills, fatigue and fever. Respiratory: Positive for cough and shortness of breath. Cardiovascular: Negative for chest pain and palpitations. Gastrointestinal: Negative for diarrhea, nausea and vomiting. Musculoskeletal: Negative for back pain and myalgias. Skin: Negative for rash. Neurological: Negative for dizziness, weakness and headaches. Psychiatric/Behavioral: Negative for sleep disturbance. PAST MEDICAL HISTORY Diagnosis Date Anorexia nervosa (HCC) Asthma (HCC) Bipolar disorder (HCC) Borderline personality disorder (HCC) Generalized anxiety disorder Headache High risk sexual behavior pt stopped B/C and she is on high risk antipsychotic medication HRP (high risk ) ([facility]) substance abuse/bipolardisorder/personality disorder Menometrorrhagia Nausea and vomiting Opioid dependence ([facility]) on suboxone psych/addiction dr delarosa Patient noncompliance Polysubstance dependence ([facility]) heroin, thc, opiates , cocaine Polysubstance dependence ([facility]) Subjective visual disturbance Tobacco dependence syndrome Ulcerative colitis (HCC) PAST SURGICAL HISTORY Procedure Laterality Date ADENOIDECTOMY HX 02/26/2013 DELIVERY ONLY Bilateral 07/16/2023 bilateral salpingectomy COLONOSCOPY SCREENING dx - ulcerative, lymphocitic - Dr. Cummings, Friend - dx at 13yrs old [facility]IC[facility] INJ Ulcers in stomach ORAL SURGERY PROCEDURE wisdom teeth removed TONSILLECTOMY HX 02/26/2013 FAMILY HISTORY Problem Relation Age of Onset Diabetes Mother COPD Father No Known Problems Brother Lymphoma Maternal Grandmother Cancer Maternal Grandfather Colon, lung, brain, throat cancer other (heart disease [Other]) Maternal Grandfather Breast Cancer Paternal Grandmother Diabetes Paternal Grandfather Hypertension Paternal Grandfather Hyperlipidemia Paternal Grandfather Social History Tobacco Use Smoking status: Every Day Current packs/day: 0.50 Types: Cigarettes Smokeless tobacco: Never Vaping Use Vaping status: Former Substance Use Topics Alcohol use: No Drug use: Not Currently Types: Marijuana, Narcotics Comment: mjn during ; but not recently; Hx opiod use - attends AA Current Outpatient Medications Medication Sig tiZANidine (ZANAFLEX) 4 mg tablet Take 1 tablet by mouth once daily. QUEtiapine (SEROQUEL) 25 mg tablet Take 25 mg by mouth two times a day. famotidine (PEPCID) 40 mg tablet Take 1 tablet by mouth daily at bedtime. SUBLOCADE 100 mg/0.5 mL injection FLUoxetine (PROZAC) 20 mg capsule Take 1 capsule by mouth every afternoon. lithium carbonate 600 mg capsule Take 750 mg by mouth at bedtime as needed. montelukast (SINGULAIR) 10 mg tablet Take 1 tablet by mouth daily at bedtime. No current facility-administered medications for this visit. Objective BP 120/80 Pulse 85 Ht 5' 5" (1.651 m) Wt 245 lb (111.1 kg) LMP 11/03/2023 (Exact Date) SpO2 98% BMI 40.77 kg/m Physical Exam GENERAL: NAD, alert and oriented. SKIN: Unremarkable, no rash or skin lesions. HEAD: Normocephalic. EYES: PERRLA, EOMI, conjunctiva clear. EARS: External ears normal, canals clear, TM's normal. NOSE/SINUSES: Nares normal. Septum midline. OROPHARYNX: Lips, mucosa, and tongue normal, good dentition. No oral lesions noted. NECK: Supple, no lymphadenopathy, normal thyroid, no carotid bruits. LUNGS: Clear to auscultation bilaterally, no wheezes/rhonchi/rales. HEART: Regular rate and rhythm, no murmurs. No ectopy. EXTREMITIES: Normal, no deformities, no skin discoloration, no edema. NEURO: Awake, alert and oriented x3, cranial nerves II-XII grossly intact, normal gait, no involuntary motions. Assessment & Plan 1. Elevated TSH (R79.89) Elevated TSH levels; currently under the care of endocrinology. Thyroid medication was discontinued due to suspicion of an underlying autoimmune condition causing thyroid inflammation. - Continue follow-up with endocrinology for further evaluation and management. 2. Class 3 severe obesity with body mass index (BMI) of 40.0 to 44.9 in adult ([facility]) (E66.813) Referred to a weight specialist by endocrinology. - Continue management with the weight specialist as per endocrinology's recommendation. 3. Lymphocytic colitis (K52.832) History of ulcerative colitis, ischemic colitis, and lymphocytic colitis. Last colonoscopy in 2022 with polyp removal; no follow-up with GI since . - Referral to gastroenterology for further evaluation and management. - Continue Pepcid; monitor dietary intake. 4. Mild intermittent asthma without complication ([facility]) (J45.20) Asthma exacerbated by mold exposure in the home environment. Currently not on Singulair. - Prescribed Singulair to be taken at bedtime. - Advised use of allergy medications such as Claritin or Zyrtec. 5. Tobacco use disorder (F17.200) Continues to smoke. - Advised on the risks of smoking, especially in the context of asthma and mold exposure. Amilcar Rivera PA-C Return in about 6 months (around 04/02/2025). Recording using [employer] software for draft documentation of the visit was discussed with the patient/authorized front desk representative; all questions welcomed and answered. Patient/authorized front desk representative agreed to proceed documented in this encounter [facility] 09-23-2024 Instructions Torsten Burrows MD - 09/23/2024 8:57 AM EDT Please do labs in about 4 weeks from now Please do not use any supplements until labs are done Schedule appointment with endocrine weight management documented in this encounter [facility] 09-23-2024 Note HNO ID: [id number] Author: TORSTEN BURROWS MD Service: ? Author Type: Physician Type: Progress Notes Filed: 09/23/2024 23:00 Note Text: [facility] Initial Clinic Visit Note Virtual Visit (Audio/Visual)"I have discussed the nature of this visit with the patient which will occur via [facility] (Phone, Virtual Visit) and he agrees to proceed with this interaction". I have communicated my name and active licensure. The patient's identity and physical location were verified at the time of this visit. Either the patient or their legal front desk representative has been informed of the risks and benefits of -- and alternatives to -- treatment through a remote evaluation and consents to proceed with the evaluation remotely. CONSULTING PROVIDER: Amilcar Rivera PA-C My final recommendations will be communicated back to the requesting provider by way of shared Medical record or a letter via [place] mail Subjective: Crystal Machuca is a 34 year old female here to establish care for subclinical hypothyroidism. History in brief, Patient reports she was gaining significant amount of weight and hence her psychiatrist started her on LT4 (the dose as per chart review appears to be 50 mcg daily) for reasons to lose weight and help with fatigue despite having normal thyroid labs She reports she felt okay after that but when she saw her new Primary care provider in 11/2023, labs for thyroid were done and showed low TSH due to which LT4 was discontinued Labs done in Apr 2024 after this have been normal Patient started feeling significantly tired in few months after. She also reports a weight gain of approximately 30 lbs from April to June, with continued gain of 10-15 lbs per month. PCP did thyroid labs in July 2024 with significantly abnormal labs and patient was started on LT4 25 mcg daily in 08/2024. Patient reports she has been experiencing symptoms of jitteriness, palpitations, feeling ,like "being on a stimulant", has heat intolerance, diarrhea, low appetite. Her cycles are regular Regarding weight loss, - Denies recent changes in stress levels. 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 - Attempts to jog but experiences dyspnea. - Denies use of supplements or [id number] medications. Significantly elevated TSH concerning for hypothyroidism was diagnosed in July 2024 when labs were done for fatigue, weight gain Cause of hypothyroidism: unclear She was then started on LT4 again at 25 mcg daily She denied any supplement or iodine use. Denied any infections, sore throat, fever , neck pain few weeks or days prior to labs done in 07/2024 Current treatment: 25 mcg daily Prior treatment: none prior to that for few weeks REVIEW OF SYSTEMS: 10 point ROS was reviewed and negative unless indicated in the HPI ALLERGIES: ALLERGIES Allergen Reactions Augmentin [Amoxicil* Hives [place] [Hydrocodone-* Vomiting Penicillin Hives Tramadol Vomiting MEDICATIONS: Current Outpatient Medications on File Prior to Visit Medication Sig tiZANidine (ZANAFLEX) 4 mg tablet Take 1 tablet by mouth once daily. QUEtiapine (SEROQUEL) 25 mg tablet Take 25 mg by mouth two times a day. levothyroxine (SYNTHROID) 25 mcg tablet Take 1 tablet by mouth daily before breakfast. famotidine (PEPCID) 40 mg tablet Take 1 tablet by mouth daily at bedtime. SUBLOCADE 100 mg/0.5 mL injection FLUoxetine (PROZAC) 20 mg capsule Take 1 capsule by mouth every afternoon. lithium carbonate 600 mg capsule Take 600 mg by mouth at bedtime as needed. No current facility-administered medications on file prior to visit. PAST MEDICAL HISTORY: PAST MEDICAL HISTORY Diagnosis Date Anorexia nervosa (HCC) Asthma (HCC) Bipolar disorder (HCC) Borderline personality disorder (HCC) Generalized anxiety disorder Headache High risk sexual behavior pt stopped B/C and she is on high risk antipsychotic medication HRP (high risk ) (HCC) substance abuse/bipolardisorder/personality disorder Menometrorrhagia Nausea and vomiting Opioid dependence ([facility]) on suboxone dr perdomo/addiction dr delarosa Patient noncompliance Polysubstance dependence ([facility]) heroin, thc, opiates , cocaine Polysubstance dependence ([facility]) Subjective visual disturbance Tobacco dependence syndrome PAST SURGICAL HISTORY: PAST SURGICAL HISTORY Procedure Laterality Date ADENOIDECTOMY HX 02/26/2013 DELIVERY ONLY Bilateral 07/16/2023 bilateral salpingectomy ORAL SURGERY PROCEDURE wisdom teeth removed TONSILLECTOMY HX 02/26/2013 FAMILY HISTORY: FAMILY HISTORY Problem Relation Age of Onset Diabetes Mother COPD Father No Known Problems Brother Lymphoma Maternal Grandmother Cancer Maternal Grandfather Colon, lung, brain, throat cancer other (heart disease [Other]) Maternal Grandfather Breast Cancer Paternal Grandmother Diabetes Paternal Grand (more content not included)... [facility] 09-23-2024 History of Present illness Narrative [facility] Initial Clinic Visit Note Virtual Visit (Audio/Visual)"I have discussed the nature of this visit with the patient which will occur via Distance Health (Phone, Virtual Visit) and he agrees to proceed with this interaction". I have communicated my name and active licensure. The patient's identity and physical location were verified at the time of this visit. Either the patient or their legal front desk representative has been informed of the risks and benefits of -- and alternatives to -- treatment through a remote evaluation and consents to proceed with the evaluation remotely. CONSULTING PROVIDER: Amilcar Rivera PA-C My final recommendations will be communicated back to the requesting provider by way of shared Medical record or a letter via [place] mail Subjective: Crystal Machuca is a 34 year old female here to establish care for subclinical hypothyroidism. History in brief, Patient reports she was gaining significant amount of weight and hence her psychiatrist started her on LT4 (the dose as per chart review appears to be 50 mcg daily) for reasons to lose weight and help with fatigue despite having normal thyroid labs She reports she felt okay after that but when she saw her new Primary care provider in 11/2023, labs for thyroid were done and showed low TSH due to which LT4 was discontinued Labs done in Apr 2024 after this have been normal Patient started feeling significantly tired in few months after. She also reports a weight gain of approximately 30 lbs from April to June, with continued gain of 10-15 lbs per month. PCP did thyroid labs in July 2024 with significantly abnormal labs and patient was started on LT4 25 mcg daily in 08/2024. Patient reports she has been experiencing symptoms of jitteriness, palpitations, feeling ,like "being on a stimulant", has heat intolerance, diarrhea, low appetite. Her cycles are regular Regarding weight loss, - Denies recent changes in stress levels. 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 - Attempts to jog but experiences dyspnea. - Denies use of supplements or [id number]-hdjybti medications. Significantly elevated TSH concerning for hypothyroidism was diagnosed in July 2024 when labs were done for fatigue, weight gain Cause of hypothyroidism: unclear She was then started on LT4 again at 25 mcg daily She denied any supplement or iodine use. Denied any infections, sore throat, fever , neck pain few weeks or days prior to labs done in 07/2024 Current treatment: 25 mcg daily Prior treatment: none prior to that for few weeks REVIEW OF SYSTEMS: 10 point ROS was reviewed and negative unless indicated in the HPI ALLERGIES: ALLERGIES Allergen Reactions Augmentin [Amoxicil* Hives [place] [Hydrocodone-* Vomiting Penicillin Hives Tramadol Vomiting MEDICATIONS: Current Outpatient Medications on File Prior to Visit Medication Sig tiZANidine (ZANAFLEX) 4 mg tablet Take 1 tablet by mouth once daily. QUEtiapine (SEROQUEL) 25 mg tablet Take 25 mg by mouth two times a day. levothyroxine (SYNTHROID) 25 mcg tablet Take 1 tablet by mouth daily before breakfast. famotidine (PEPCID) 40 mg tablet Take 1 tablet by mouth daily at bedtime. SUBLOCADE 100 mg/0.5 mL injection FLUoxetine (PROZAC) 20 mg capsule Take 1 capsule by mouth every afternoon. lithium carbonate 600 mg capsule Take 600 mg by mouth at bedtime as needed. No current facility-administered medications on file prior to visit. PAST MEDICAL HISTORY: PAST MEDICAL HISTORY Diagnosis Date Anorexia nervosa (HCC) Asthma (HCC) Bipolar disorder (HCC) Borderline personality disorder (HCC) Generalized anxiety disorder Headache High risk sexual behavior pt stopped B/C and she is on high risk antipsychotic medication HRP (high risk ) (HCC) substance abuse/bipolardisorder/personality disorder Menometrorrhagia Nausea and vomiting Opioid dependence ([facility]) on suboxone psych/addiction dr delarosa Patient noncompliance Polysubstance dependence ([facility]) heroin, thc, opiates , cocaine Polysubstance dependence ([facility]) Subjective visual disturbance Tobacco dependence syndrome PAST SURGICAL HISTORY: PAST SURGICAL HISTORY Procedure Laterality Date ADENOIDECTOMY HX 02/26/2013 DELIVERY ONLY Bilateral 07/16/2023 bilateral salpingectomy ORAL SURGERY PROCEDURE wisdom teeth removed TONSILLECTOMY HX 02/26/2013 FAMILY HISTORY: FAMILY HISTORY Problem Relation Age of Onset Diabetes Mother COPD Father No Known Problems Brother Lymphoma Maternal Grandmother Cancer Maternal Grandfather Colon, lung, brain, throat cancer other (heart disease [Other]) Maternal Grandfather Breast Cancer Paternal Grandmother Diabetes Paternal Grandfather Hypertension Paternal Grandfather Hyperlipidemia Paternal Grandfather SOCIAL HISTORY: Social History Tobacco Use Smoking status: Every Day Current packs/day: 0.50 Types: Cigarettes Smokeless tobacco: Never Vaping Use Vaping status: Former Substance Use Topics Alcohol use: No Drug use: Not Currently Types: Marijuana, Narcotics Comment: mjn during ; but not recently; Hx opiod use - attends AA PHYSICAL EXAM: LMP 11/03/2023 (Exact Date) Deferred LABS: TSH Date Value Ref Range Status 08/11/2024 17.800 (H) 0.270 - 4.200 mIU/L Final Comment: If the patient is , TSH reference range varies by gestational period: First Trimester (weeks 9-12): 0.180-2.990 mIU/L Second Trimester: 0.110-3.980 mIU/L Third Trimester: 0.480-4.710 mIU/L Thomas Hinojosa et al. A Practical Approach for the Verifications and Determination of Site- and Trimester-Specific Reference Intervals for Thyroid Function tests in . Thyroid, 2019:29:3:412-420. Tin Montelongo, et al. 2017 Guidelines of the [place] [employer] for the Diagnosis and Management of Thyroid Disease during and the . Thyroid, 2017:27:3:315-389. Free T4 Date Value Ref Range Status 08/11/2024 0.8 (L) 0.9 - 1.7 ng/dL Final Latest Reference Range & Units 12/10/12 13:45 09/07/14 14:15 09/02/23 15:39 09/26/23 15:01 10/24/23 10:37 12/11/23 10:28 04/22/24 09:56 08/11/24 14:20 Free T4 0.9 - 1.7 ng/dL 1.1 1.0 1.6 1.1 0.8 (L) TSH 0.270 - 4.200 mIU/L 0.938 0.878 3.800 3.260 2.760 0.035 (L) 0.681 17.800 (H) Free T3 2.3 - 4.1 pg/mL 2.8 2.8 4.4 (H) 3.0 2.9 Prolactin 4.4 - 33.8 ng/mL 14.9 Cortisol 4.8 - 19.5 ug/dL 4.6 (L) Vitamin D 25 Hydroxy 31.0 - 80.0 ng/mL 30.4 (L) (L): Data is abnormally low (H): Data is abnormally high ASSESSMENT/PLAN: Hypothyroidism: Elevates TSH: Last year, she was started on LT4 by psychiatry without thyroid hormone abnormalities, but was discontinued by her PCP due to low TSH. She had no symptoms while on 50 mcg of thyroid hormone at that time Recently in 07/2024 her labs seemed very abnormal, and was started on 25 mcg daily. She is experiencing symptoms mostly concerning for hyperthyroidism, but she also has low appetite in addition I discussed 2 options with her: To hold medication and check labs in 8 weeks as she has symptoms concerning for hyperthyroidism. And manage based on alb results To continue 25 mcg daily, and repeat labs in 4 weeks from now as the dose was started about 4 weeks ago. She prefers the second option Labs ordered, advised against starting any new supplements until labs are drawn Regarding patient's concerns for weight gain, I discussed her that the antidepressant medications is one of the common reasons. She reports she was mentioned about this by her psychiatrist. I, hence reviewed weight management referral as she is not benefiting from diet and exercise, and her weight fulfils criteria for Obesity medications vs continuing lifestyle modifications. She would like to see weight management team. Consult placed Follow up in 5 weeks with labs Medical Decision Making: Problems: Low: Stable chronic illness Moderate: New problem with uncertain prognosis Data: Unique test result(s) reviewed: 3+ Unique test(s) ordered: 2 Medical Decision Making Level: 4 - Moderate Torsten Burrows MD Endocrinology Associate Staff [facility] Endocrinology and Metabolism [place] [phone] documented in this encounter [facility] 09-22-2024 Note HNO ID: [id number] Author: JANET RODAS, DO Service: ? Author Type: Physician Type: Progress Notes Filed: 10/06/2024 10:14 Note Text: Heart, Vascular and Thoracic [place] DEPARTMENT OF VASCULAR SURGERY OUTPATIENT VISIT DATE September 22, 2024 OUTPATIENT VISIT TYPE CONSULTATION SERVICE DATE: 09/22/2024 SERVICE TIME: 9:47 AM PRIMARY CARE PHYSICIAN: Amilcar Rivera PA-C REFERRING PROVIDER: Amilcar Rivera [id number] [facility] [id number] Consult requested for an opinion regarding the evaluation and treatment of the above. My final impression and recommendations will be communicated back to the requesting physician by way of the shared medical record or letter via [place] mail. CHIEF COMPLAINT: Patient presents with: New Patient History of Present Illness: Patient is a 34 year old White female presenting for consultation, evaluation and possible treatment of varicose veins.bilateral tender lumps which started on right leg and now present on left. She has a history of phlebitis after delivery of her last child. She does noticed bilateral lower extremity swelling especially at the ankles at the end of day. Predisposing factors included not significant. No specific history of injury or prior problems. Relieving factors include support hose, elevation of legs, and reduced activity with mild improvement in symptoms. Patient denies DVT, phlebitis, and treatment with blood thinners. PAIN ASSESSMENT: PAIN EVALUATION No data found in the last 1 encounters. Obstetric History T3 L3 SAB1 IAB1 Ectopic0 Multiple0 Live Births3 Name of Baby 1: Not recorded Date: Not recorded GA: Not recorded Type: Not recorded Apgar1: Not recorded Apgar5: Not recorded Living: Not recorded Name of Baby 2: Not recorded Date: Not recorded GA: Not recorded Type: Not recorded Apgar1: Not recorded Apgar5: Not recorded Living: Not recorded Name of Baby 3: Finesse Date: 05/30/15 GA: 39w4d Type: Vaginal, Spontaneous Apgar1: Not recorded Apgar5: Not recorded Living: Living Name of Baby 4: Emiliano Date: 11/27/19 GA: Not recorded Type: Vaginal, Spontaneous Apgar1: Not recorded Apgar5: Not recorded Living: Living Name of Baby 5: Leonardo Date: 07/16/23 GA: 39w1d Type: , Low Transverse Apgar1: Not recorded Apgar5: Not recorded Living: Living Duration of Symptoms: Progressive PAST MEDICAL HISTORY Diagnosis Date Anorexia nervosa (HCC) Asthma (HCC) Bipolar disorder (HCC) Borderline personality disorder (HCC) Generalized anxiety disorder Headache High risk sexual behavior pt stopped B/C and she is on high risk antipsychotic medication HRP (high risk ) (HCC) substance abuse/bipolardisorder/personality disorder Menometrorrhagia Nausea and vomiting Opioid dependence (HCC) on suboxone psych/addiction dr delarosa Patient noncompliance Polysubstance dependence (HCC) heroin, thc, opiates , cocaine Polysubstance dependence (HCC) Subjective visual disturbance Tobacco dependence syndrome PAST SURGICAL HISTORY Procedure Laterality Date ADENOIDECTOMY HX 02/26/2013 DELIVERY ONLY Bilateral 07/16/2023 bilateral salpingectomy ORAL SURGERY PROCEDURE wisdom teeth removed TONSILLECTOMY HX 02/26/2013 SOCIAL HISTORY: Social History Tobacco Use Smoking status: Every Day Current packs/day: 0.50 Types: Cigarettes Smokeless tobacco: Never Vaping Use Vaping status: Former Substance Use Topics Alcohol use: No Drug use: Not Currently Types: Marijuana, Narcotics Comment: mjn during ; but not recently; Hx opiod use - attends AA FAMILY HISTORY Problem Relation Age of Onset Diabetes Mother COPD Father No Known Problems Brother Lymphoma Maternal Grandmother Cancer Maternal Grandfather Colon, lung, brain, throat cancer other (heart disease [Other]) Maternal Grandfather Breast Cancer Paternal Grandmother Diabetes Paternal Grandfather Hypertension Paternal Grandfather Hyperlipidemia Paternal Grandfather MEDICATIONS: tiZANidine (ZANAFLEX) 4 mg tablet Take 1 tablet by mouth once daily. QUEtiapine (SEROQUEL) 25 mg tablet Take 25 mg by mouth two times a day. levothyroxine (SYNTHROID) 25 mcg tablet Take 1 tablet by mouth daily before breakfast. famotidine (PEPCID) 40 mg tablet Take 1 tablet by mouth daily at bedtime. SUBLOCADE 100 mg/0.5 mL injection FLUoxetine (PROZAC) 20 mg capsule Take 1 capsule by mouth every afternoon. lithium carbonate 600 mg capsule Take 600 mg by mouth at bedtime as needed. ALLERGIES: ALLERGIES Allergen Reactions Augmentin [Amoxicil* Hives [place] [Hydrocodone-* Vomiting Penicillin Hives Tramadol Vomiting REVIEW of SYSTEMS: Constitutional: No weight loss, malaise or fevers. HEENT: No changes in hearing or vision, no nose bleeds or other nasal problems, Head Positive for headache Respiratory: Negative for cough, wheezing, or shortness of breath Cardiovascular: Negative (more content not included)... [facility] 09-22-2024 History of Present illness Narrative Images from the original note were not included. Heart, Vascular [facility] Thoracic [place] DEPARTMENT OF VASCULAR SURGERY OUTPATIENT VISIT DATE September 22, 2024 OUTPATIENT VISIT TYPE CONSULTATION SERVICE DATE: 09/22/2024 SERVICE TIME: 9:47 AM PRIMARY CARE PHYSICIAN: Amilcar Rivera PA-C REFERRING PROVIDER: Amilcar Rivera [address] [facility] [id number] Consult requested for an opinion regarding the evaluation and treatment of the above. My final impression and recommendations will be communicated back to the requesting physician by way of the shared medical record or letter via [place] mail. CHIEF COMPLAINT: Patient presents with: New Patient History of Present Illness: Patient is a 34 year old White female presenting for consultation, evaluation and possible treatment of varicose veins.bilateral tender lumps which started on right leg and now present on left. She has a history of phlebitis after delivery of her last child. She does noticed bilateral lower extremity swelling especially at the ankles at the end of day. Predisposing factors included not significant. No specific history of injury or prior problems. Relieving factors include support hose, elevation of legs, and reduced activity with mild improvement in symptoms. Patient denies DVT, phlebitis, and treatment with blood thinners. PAIN ASSESSMENT: PAIN EVALUATION No data found in the last 1 encounters. Obstetric History T3 L3 SAB1 IAB1 Ectopic0 Multiple0 Live Births3 Name of Baby 1: Not recorded Date: Not recorded GA: Not recorded Type: Not recorded Apgar1: Not recorded Apgar5: Not recorded Living: Not recorded Name of Baby 2: Not recorded Date: Not recorded GA: Not recorded Type: Not recorded Apgar1: Not recorded Apgar5: Not recorded Living: Not recorded Name of Baby 3: Finesse Date: 05/30/15 GA: 39w4d Type: Vaginal, Spontaneous Apgar1: Not recorded Apgar5: Not recorded Living: Living Name of Baby 4: Emiliano Date: 11/27/19 GA: Not recorded Type: Vaginal, Spontaneous Apgar1: Not recorded Apgar5: Not recorded Living: Living Name of Baby 5: Leonardo Date: 07/16/23 GA: 39w1d Type: , Low Transverse Apgar1: Not recorded Apgar5: Not recorded Living: Living Duration of Symptoms: Progressive PAST MEDICAL HISTORY Diagnosis Date Anorexia nervosa (HCC) Asthma (HCC) Bipolar disorder (HCC) Borderline personality disorder (HCC) Generalized anxiety disorder Headache High risk sexual behavior pt stopped B/C and she is on high risk antipsychotic medication HRP (high risk ) ([facility]) substance abuse/bipolardisorder/personality disorder Menometrorrhagia Nausea and vomiting Opioid dependence (HCC) on suboxone psych/addiction dr delarosa Patient noncompliance Polysubstance dependence ([facility]) heroin, thc, opiates , cocaine Polysubstance dependence ([facility]) Subjective visual disturbance Tobacco dependence syndrome PAST SURGICAL HISTORY Procedure Laterality Date ADENOIDECTOMY HX 02/26/2013 DELIVERY ONLY Bilateral 07/16/2023 bilateral salpingectomy ORAL SURGERY PROCEDURE wisdom teeth removed TONSILLECTOMY HX 02/26/2013 SOCIAL HISTORY: Social History Tobacco Use Smoking status: Every Day Current packs/day: 0.50 Types: Cigarettes Smokeless tobacco: Never Vaping Use Vaping status: Former Substance Use Topics Alcohol use: No Drug use: Not Currently Types: Marijuana, Narcotics Comment: mjn during ; but not recently; Hx opiod use - attends AA FAMILY HISTORY Problem Relation Age of Onset Diabetes Mother COPD Father No Known Problems Brother Lymphoma Maternal Grandmother Cancer Maternal Grandfather Colon, lung, brain, throat cancer other (heart disease [Other]) Maternal Grandfather Breast Cancer Paternal Grandmother Diabetes Paternal Grandfather Hypertension Paternal Grandfather Hyperlipidemia Paternal Grandfather MEDICATIONS: tiZANidine (ZANAFLEX) 4 mg tablet Take 1 tablet by mouth once daily. QUEtiapine (SEROQUEL) 25 mg tablet Take 25 mg by mouth two times a day. levothyroxine (SYNTHROID) 25 mcg tablet Take 1 tablet by mouth daily before breakfast. famotidine (PEPCID) 40 mg tablet Take 1 tablet by mouth daily at bedtime. SUBLOCADE 100 mg/0.5 mL injection FLUoxetine (PROZAC) 20 mg capsule Take 1 capsule by mouth every afternoon. lithium carbonate 600 mg capsule Take 600 mg by mouth at bedtime as needed. ALLERGIES: ALLERGIES Allergen Reactions Augmentin [Amoxicil* Hives [place] [Hydrocodone-* Vomiting Penicillin Hives Tramadol Vomiting REVIEW of SYSTEMS: Constitutional: No weight loss, malaise or fevers. HEENT: No changes in hearing or vision, no nose bleeds or other nasal problems, Head Positive for headache Respiratory: Negative for cough, wheezing, or shortness of breath Cardiovascular: Negative for chest pain and palpitations and Positive for leg swelling Gatrointestinal: Negative for blood in stools or black stools and Positive for abdominal discomfort and diarrhea Genitourinary: No difficulty urination, nocturia >1 times per night or hematuria Musculoskeletal: Positive for back pain Endocrine: Positive for heat intolerance Hematology/Lymphatic: Positive for bruises easily Neurologic: No history or headaches, syncope, paralysis, seizures or tremors Integumentary: Negative for lesions, rash, and itching. PHYSICAL EXAM: VITALS: [facility] 11/03/2023 General: Alert, oriented, cooperative, healthy appearance Integumentary: Normal color, no rash, no lesions. HEENT: EOM, pupils equal, round and reactive. Cardiovascular: Pulse regular. Lungs: No chest deformities or chest wall tenderness. Abdomen: Not examined Extremities: Varicose veins Neurological: AAOx3. Normal cognition and motor skills. Vascular: Dorsalis Pedal Right: Normal - Left: Normal Diagnostic tests reviewed for today's visit: Most recent labs Most recent imaging IMPRESSION: Ms. Machuca is a 34 year old female with symptomatic varicose veins . PLAN and RECOMMENDATIONS: Discussed venous pathology with patient Recommend continued use of compression stockings, elevation and exercise Will get venous reflux testing and follow up to discuss results Prescription provided for compression stockings 20-30 mmHg and instructed on use SIGNATURE: Janet Rodas DO PATIENT NAME: Crystal Machuca DATE: September 22, 2024 TIME: 9:47 AM documented in this encounter [facility] 09-11-2024 History of Present illness Narrative Radiology Service Progress Note PATIENT NAME: Crystal Machuca DATE OF SERVICE: September 11, 2024 TIME: 11:26 AM PATIENT IDENTITY VERIFICATION COMPLETED USING TWO (2) IDENTIFIERS: Name and Date of confirmed by patient verbally. FALL SCREENING: Has the patient had 2 falls in the last year or 1 fall with injury or currently using an Ambulatory Assistive Device (Walker, Cane, Wheelchair, Crutches, etc.)? No PATIENT GENDER DATA: Assigned female at . status: : No status: NO. PATIENT RELEVANT IMPLANT DATA REVIEWED: Not Applicable PATIENT PRESENTS WITH AN IMPLANTABLE OR ATTACHED HIDE PASTER: No RADIOLOGY DEPARTMENT: Ultrasound PERIPHERAL IV DATA: Not applicable SIGNED BY: Ema Lang RDMS RVT September 11, 2024 11:26 AM documented in this encounter [facility] 09-11-2024 Note HNO ID: [id number] Author: EMA LANG RDMS Service: ? Author Type: Telephonic Nurse Case Manager Type: Progress Notes Filed: 09/11/2024 11:27 Note Text: Radiology Service Progress Note PATIENT NAME: Crystal Machuca DATE OF SERVICE: September 11, 2024 TIME: 11:26 AM PATIENT IDENTITY VERIFICATION COMPLETED USING TWO (2) IDENTIFIERS: Name and Date of confirmed by patient verbally. FALL SCREENING: Has the patient had 2 falls in the last year or 1 fall with injury or currently using an Ambulatory Assistive Device (Walker, Cane, Wheelchair, Crutches, etc.)? No PATIENT GENDER DATA: Assigned female at . status: : No status: NO. PATIENT RELEVANT IMPLANT DATA REVIEWED: Not Applicable PATIENT PRESENTS WITH AN IMPLANTABLE OR ATTACHED HIDE PASTER: No RADIOLOGY DEPARTMENT: Ultrasound PERIPHERAL IV DATA: Not applicable SIGNED BY: Ema Lang RDMS RVT September 11, 2024 11:26 AM [facility] 09-08-2024 Instructions Mikhail Mckeon MD - 09/08/2024 11:56 AM EDT Schedule the MRI of your lumbar spine as soon as you can. Continue the Flexeril as needed but try to use it sparingly. You can take Tylenol or ibuprofen for the pain and inflammation as needed. Follow-up here about 5 days after the lumbar MRI to go over the results and make further recommendations. Continue doing your home exercises and therapy for both the neck and back. documented in this encounter [facility] 09-08-2024 Note HNO ID: [id number] Author: MIKHAIL MCKEON MD Service: ? Author Type: Physician Type: Progress Notes Filed: 09/08/2024 12:03 Note Text: Crystal Machuca is a 34 year old presenting with Follow Up, Pain, and Results - Mri of the Neck HPI: Patient is here for follow-up of her neck and back pain. The neck is slightly improved. She still does get tightness and pain when she is active. She did have her MRI of the cervical spine and is here to go over the results. Her low back is actually worsening and continues to give her pain and tingling into the left leg sometimes to the right. She feels very unsteady and weak on the left side with ambulating. Her left leg gets weaker when she is ambulating. There is no loss of bowel or bladder control. Review of Systems Constitutional: Negative for chills and fever. Musculoskeletal: Positive for back pain (Low back pain left worse than right.) and neck pain. Neurological: Positive for tingling (Bilateral lower extremity), sensory change (Left lower extremity) and focal weakness (Lower extremity). PAST MEDICAL HISTORY Diagnosis Date Anorexia nervosa (HCC) Asthma (HCC) Bipolar disorder (HCC) Borderline personality disorder (HCC) Generalized anxiety disorder Headache High risk sexual behavior pt stopped B/C and she is on high risk antipsychotic medication HRP (high risk ) ([facility]) substance abuse/bipolardisorder/personality disorder Menometrorrhagia Nausea and vomiting Opioid dependence ([facility]) on suboxone psych/addiction dr delarosa Patient noncompliance Polysubstance dependence ([facility]) heroin, thc, opiates , cocaine Polysubstance dependence ([facility]) Subjective visual disturbance Tobacco dependence syndrome FAMILY HISTORY Problem Relation Age of Onset Diabetes Mother COPD Father No Known Problems Brother Lymphoma Maternal Grandmother Cancer Maternal Grandfather Colon, lung, brain, throat cancer other (heart disease [Other]) Maternal Grandfather Breast Cancer Paternal Grandmother Diabetes Paternal Grandfather Hypertension Paternal Grandfather Hyperlipidemia Paternal Grandfather Tobacco Use: High Risk (09/08/2024) Patient History Smoking Tobacco Use: Every Day Smokeless Tobacco Use: Never Passive Exposure: Not on file Alcohol Use: No Current Outpatient Medications Medication Sig QUEtiapine (SEROQUEL) 25 mg tablet Take 25 mg by mouth two times a day. levothyroxine (SYNTHROID) 25 mcg tablet Take 1 tablet by mouth daily before breakfast. famotidine (PEPCID) 40 mg tablet Take 1 tablet by mouth daily at bedtime. SUBLOCADE 100 mg/0.5 mL injection cyclobenzaprine (FLEXERIL) 10 mg tablet Take 1 tablet by mouth three times a day as needed for muscle spasm or pain. FLUoxetine (PROZAC) 20 mg capsule Take 1 capsule by mouth every afternoon. lithium carbonate 600 mg capsule Take 600 mg by mouth at bedtime as needed. No current facility-administered medications for this visit. ALLERGIES Allergen Reactions Augmentin [Amoxicil* Hives [place] [Hydrocodone-* Vomiting Penicillin Hives Tramadol Vomiting Ht 5' 5" (1.65m) Wt 241 lb (109.3kg) LMP 11/03/2023 BMI 40.10 kg/(m2). Physical Exam Constitutional: General: She is not in acute distress. Musculoskeletal: Comments: Still has some mild paracervical soft tissue tenderness no midline tenderness. Some slight decreased flexion extension. Her MRI results showed just some slight cervical disc findings but no stenosis or compromise of the canals. Patient has very limited lumbar range of motion. She can flex about 45 degrees forward but has very limited extension. She is tender paralumbar soft tissue left more than the right. On straight leg raise she can only raise the left leg to about 30 degrees now which is worse than previous visit. Pain radiates down the left leg to the foot. She does have a positive bowstring sign on the left. Some slight weakness with great toe extension on the left compared to the right. Straight leg raise on the right leg cause some pain at 45 degrees but no radiculopathy. Neurological: Mental Status: She is alert. Procedures ASSESSMENT/PLAN: 1. Left-sided low back pain with left-sided sciatica, unspecified chronicity - ICD9: 724.3, ICD10: M54.42 (primary diagnosis) 2. Neck pain on left side - ICD9: 723.1, ICD10: M54.2 Patient's neck pain has improved slightly. Her MRI did not show any severe abnormalities just some mild changes. At this time she is to continue to therapy and symptomatic treatment. Follow-up as needed for the neck. 3. Spinal stenosis of lumbar region with neurogenic claudication - ICD9: 724.03, ICD10: M48.062 Patient has worsening symptoms in her low back. Despite doing therapy her symptoms are progressing. At this time I recommend getting an MRI and have placed an order for that. She is to follow-up here for 5 days after the MRI to go over the results. I did prescribe her more Flexeril. She (more content not included)... [facility] 09-08-2024 History of Present illness Narrative Crystal Machuca is a 34 year old presenting with Follow Up, Pain, and Results - Mri of the Neck HPI: Patient is here for follow-up of her neck and back pain. The neck is slightly improved. She still does get tightness and pain when she is active. She did have her MRI of the cervical spine and is here to go over the results. Her low back is actually worsening and continues to give her pain and tingling into the left leg sometimes to the right. She feels very unsteady and weak on the left side with ambulating. Her left leg gets weaker when she is ambulating. There is no loss of bowel or bladder control. Review of Systems Constitutional: Negative for chills and fever. Musculoskeletal: Positive for back pain (Low back pain left worse than right.) and neck pain. Neurological: Positive for tingling (Bilateral lower extremity), sensory change (Left lower extremity) and focal weakness (Lower extremity). PAST MEDICAL HISTORY Diagnosis Date Anorexia nervosa (HCC) Asthma (HCC) Bipolar disorder (HCC) Borderline personality disorder ([facility]) Generalized anxiety disorder Headache High risk sexual behavior pt stopped B/C and she is on high risk antipsychotic medication HRP (high risk ) ([facility]) substance abuse/bipolardisorder/personality disorder Menometrorrhagia Nausea and vomiting Opioid dependence ([facility]) on suboxone psych/addiction dr delarosa Patient noncompliance Polysubstance dependence ([facility]) heroin, thc, opiates , cocaine Polysubstance dependence ([facility]) Subjective visual disturbance Tobacco dependence syndrome FAMILY HISTORY Problem Relation Age of Onset Diabetes Mother COPD Father No Known Problems Brother Lymphoma Maternal Grandmother Cancer Maternal Grandfather Colon, lung, brain, throat cancer other (heart disease [Other]) Maternal Grandfather Breast Cancer Paternal Grandmother Diabetes Paternal Grandfather Hypertension Paternal Grandfather Hyperlipidemia Paternal Grandfather Tobacco Use: High Risk (09/08/2024) Patient History Smoking Tobacco Use: Every Day Smokeless Tobacco Use: Never Passive Exposure: Not on file Alcohol Use: No Current Outpatient Medications Medication Sig QUEtiapine (SEROQUEL) 25 mg tablet Take 25 mg by mouth two times a day. levothyroxine (SYNTHROID) 25 mcg tablet Take 1 tablet by mouth daily before breakfast. famotidine (PEPCID) 40 mg tablet Take 1 tablet by mouth daily at bedtime. SUBLOCADE 100 mg/0.5 mL injection cyclobenzaprine (FLEXERIL) 10 mg tablet Take 1 tablet by mouth three times a day as needed for muscle spasm or pain. FLUoxetine (PROZAC) 20 mg capsule Take 1 capsule by mouth every afternoon. lithium carbonate 600 mg capsule Take 600 mg by mouth at bedtime as needed. No current facility-administered medications for this visit. ALLERGIES Allergen Reactions Augmentin [Amoxicil* Hives [place] [Hydrocodone-* Vomiting Penicillin Hives Tramadol Vomiting Ht 5' 5" (1.65m) Wt 241 lb (109.3kg) LMP 11/03/2023 BMI 40.10 kg/(m^2). Physical Exam Constitutional: General: She is not in acute distress. Musculoskeletal: Comments: Still has some mild paracervical soft tissue tenderness no midline tenderness. Some slight decreased flexion extension. Her MRI results showed just some slight cervical disc findings but no stenosis or compromise of the canals. Patient has very limited lumbar range of motion. She can flex about 45 degrees forward but has very limited extension. She is tender paralumbar soft tissue left more than the right. On straight leg raise she can only raise the left leg to about 30 degrees now which is worse than previous visit. Pain radiates down the left leg to the foot. She does have a positive bowstring sign on the left. Some slight weakness with great toe extension on the left compared to the right. Straight leg raise on the right leg cause some pain at 45 degrees but no radiculopathy. Neurological: Mental Status: She is alert. Procedures ASSESSMENT/PLAN: 1. Left-sided low back pain with left-sided sciatica, unspecified chronicity - ICD9: 724.3, ICD10: M54.42 (primary diagnosis) 2. Neck pain on left side - ICD9: 723.1, ICD10: M54.2 Patient's neck pain has improved slightly. Her MRI did not show any severe abnormalities just some mild changes. At this time she is to continue to therapy and symptomatic treatment. Follow-up as needed for the neck. 3. Spinal stenosis of lumbar region with neurogenic claudication - ICD9: 724.03, ICD10: M48.062 Patient has worsening symptoms in her low back. Despite doing therapy her symptoms are progressing. At this time I recommend getting an MRI and have placed an order for that. She is to follow-up here for 5 days after the MRI to go over the results. I did prescribe her more Flexeril. She can take ibuprofen or Tylenol as well for symptoms as needed. - MRI LUMBAR SPINE WO IVCON Patient did request to switch from Flexeril to tizanidine so that was prescribed instead of the Flexeril. No problem-specific Assessment & Plan notes found for this encounter. 34 y/o female patient here today to follow up with neck pain. MRI cervical completed. Insurance denied the MRI lumbar. documented in this encounter [facility] 09-08-2024 Note HNO ID: [id number] Author: SYLVIA BANSAL MA Service: ? Author Type: Call Center Supervisor Type: Progress Notes Filed: 09/08/2024 12:03 Note Text: 34 y/o female patient here today to follow up with neck pain. MRI cervical completed. Insurance denied the MRI lumbar. [facility] 09-04-2024 Telephone encounter Note Called Pt to schedule from referral - Pt wanted to be seen in [place]. Phone number for [place] office (Dr. Rodas) was provided, as the [place] office schedules for the [place] location. [facility] 09-04-2024 Miscellaneous Notes Called Pt to schedule from referral - Pt wanted to be seen in [place]. Phone number for [place] office (Dr. Rodas) was provided, as the [place] office schedules for the [place] location. documented in this encounter [facility] 09-02-2024 History of Present illness Narrative Radiology Service Progress Note PATIENT NAME: Crystal Machuca DATE OF SERVICE: September 02, 2024 TIME: 9:20 AM PATIENT IDENTITY VERIFICATION COMPLETED USING TWO (2) IDENTIFIERS: Name and Date of confirmed by patient verbally. FALL SCREENING: Has the patient had 2 falls in the last year or 1 fall with injury or currently using an Ambulatory Assistive Device (Walker, Cane, Wheelchair, Crutches, etc.)? No PATIENT GENDER DATA: Assigned female at . status: : No status: NO. PATIENT RELEVANT IMPLANT DATA REVIEWED: Yes PATIENT PRESENTS WITH AN IMPLANTABLE OR ATTACHED HIDE PASTER: No RADIOLOGY DEPARTMENT: MR; Exam(s) Completed: Spine: Cervical spine. Lavender Administered: No PERIPHERAL IV DATA: Not applicable SIGNED BY: RT Ankit(R) September 02, 2024 9:20 AM documented in this encounter [facility] 09-02-2024 Note HNO ID: [id number] Author: FAM EVANS RT(Stefani) Service: ? Author Type: Technologist Type: Progress Notes Filed: 09/02/2024 09:20 Note Text: Radiology Service Progress Note PATIENT NAME: Crystal Machuca DATE OF SERVICE: September 02, 2024 TIME: 9:20 AM PATIENT IDENTITY VERIFICATION COMPLETED USING TWO (2) IDENTIFIERS: Name and Date of confirmed by patient verbally. FALL SCREENING: Has the patient had 2 falls in the last year or 1 fall with injury or currently using an Ambulatory Assistive Device (Walker, Cane, Wheelchair, Crutches, etc.)? No PATIENT GENDER DATA: Assigned female at . status: : No status: NO. PATIENT RELEVANT IMPLANT DATA REVIEWED: Yes PATIENT PRESENTS WITH AN IMPLANTABLE OR ATTACHED HIDE PASTER: No RADIOLOGY DEPARTMENT: MR; Exam(s) Completed: Spine: Cervical spine. Lavender Administered: No PERIPHERAL IV DATA: Not applicable SIGNED BY: RT Ankit(R) September 02, 2024 9:20 AM [facility] 08-26-2024 Note HNO ID: [id number] Author: AMILCAR RIVERA PA-C Service: ? Author Type: Physician Receiving Coordinator Type: Progress Notes Filed: 09/01/2024 20:48 Note Text: Subjective Crystal Machuca is a 34-year-old female presenting with concerns about elevated thyroid levels and associated symptoms. Crystal reports that approximately one year ago, her psychiatrist prescribed Synthroid 50 mcg to address fatigue and weight gain, despite her thyroid levels being within the normal range at that time. She discontinued the medication after a few months due to a significant drop in her thyroid levels and lack of improvement in her symptoms. Recent lab results indicate a marked elevation in her thyroid levels. She reports persistent fatigue and weight gain, despite a decreased appetite and increased physical activity. She also experiences frequent sensations of being overheated and diaphoretic, even in cooler temperatures. She denies any palpitations, dysphagia, or cephalalgia. Additionally, she reports severe abdominal pain that begins in the RUQ and radiates to her entire abdomen and back, accompanied by nausea and diaphoresis. These episodes occur sporadically and are exacerbated by the consumption of fried or greasy foods. She also experiences irregular bowel movements, alternating between constipation and episodes of profuse diarrhea. She denies any history of gallbladder issues and still has her gallbladder. She also reports significant swelling in her legs, which sometimes turns purple and causes paresthesia. She recently underwent an ultrasound of her right leg, which revealed a sebaceous cyst and a possible venous varicosity or pseudoaneurysm. She denies any chest pain, dyspnea, or urinary symptoms. She is not currently . Review of Systems Constitutional: (+) fatigue, (+) diaphoresis, (+) heat intolerance, (+) weight gain, (+) decreased appetite, (-) fever Head: (+) headaches Ears/Nose/Mouth/Throat: (-) dysphagia Cardiovascular: (+) palpitations, (+) edema, (-) chest pain Respiratory: (-) shortness of breath, (-) cough Gastrointestinal: (+) right upper quadrant abdominal pain, (+) nausea, (+) constipation, (+) diarrhea, (+) epigastric burning, (-) vomiting Genitourinary: (-) dysuria, (-) urinary frequency Skin: (+) leg discoloration Neurological: (+) paresthesias PAST MEDICAL HISTORY Diagnosis Date Anorexia nervosa (HCC) Asthma (HCC) Bipolar disorder (HCC) Borderline personality disorder (HCC) Generalized anxiety disorder Headache High risk sexual behavior pt stopped B/C and she is on high risk antipsychotic medication HRP (high risk ) (HCC) substance abuse/bipolardisorder/personality disorder Menometrorrhagia Nausea and vomiting Opioid dependence (HCC) on suboxone psych/addiction dr delarosa Patient noncompliance Polysubstance dependence (HCC) heroin, thc, opiates , cocaine Polysubstance dependence (HCC) Subjective visual disturbance Tobacco dependence syndrome PAST SURGICAL HISTORY Procedure Laterality Date ADENOIDECTOMY HX 02/26/2013 DELIVERY ONLY Bilateral 07/16/2023 bilateral salpingectomy ORAL SURGERY PROCEDURE wisdom teeth removed TONSILLECTOMY HX 02/26/2013 FAMILY HISTORY Problem Relation Age of Onset Diabetes Mother COPD Father No Known Problems Brother Lymphoma Maternal Grandmother Cancer Maternal Grandfather Colon, lung, brain, throat cancer other (heart disease [Other]) Maternal Grandfather Breast Cancer Paternal Grandmother Diabetes Paternal Grandfather Hypertension Paternal Grandfather Hyperlipidemia Paternal Grandfather Social History Tobacco Use Smoking status: Every Day Current packs/day: 0.50 Types: Cigarettes Smokeless tobacco: Never Vaping Use Vaping status: Former Substance Use Topics Alcohol use: No Drug use: Not Currently Types: Marijuana, Narcotics Comment: mjn during ; but not recently; Hx opiod use - attends AA Current Outpatient Medications Medication Sig QUEtiapine (SEROQUEL) 25 mg tablet Take 25 mg by mouth two times a day. SUBLOCADE 100 mg/0.5 mL injection cyclobenzaprine (FLEXERIL) 10 mg tablet Take 1 tablet by mouth three times a day as needed for muscle spasm or pain. FLUoxetine (PROZAC) 20 mg capsule Take 1 capsule by mouth every afternoon. lithium carbonate 600 mg capsule Take 600 mg by mouth at bedtime as needed. levothyroxine (SYNTHROID) 25 mcg tablet Take 1 tablet by mouth daily before breakfast. famotidine (PEPCID) 40 mg tablet Take 1 tablet by mouth daily at bedtime. No current facility-administered medications for this visit. Objective BP 118/80 (BP Site: Left Arm, BP Position: Sitting) Pulse 89 Temp 36.8 ?C (98.3 ?F) Ht 5' 5" (1.651 m) Wt 241 lb (109.3 kg) LMP 11/03/2023 (Exact Date) SpO2 95% BMI 40.10 kg/m? Physical Exam GENERAL: NAD, alert and oriented. SKIN: Unremarkable, no rash or skin lesions. HEAD: (more content not included)... [facility] 08-26-2024 History of Present illness Narrative Subjective Crystal Machuca is a 34-year-old female presenting with concerns about elevated thyroid levels and associated symptoms. Crystal reports that approximately one year ago, her psychiatrist prescribed Synthroid 50 mcg to address fatigue and weight gain, despite her thyroid levels being within the normal range at that time. She discontinued the medication after a few months due to a significant drop in her thyroid levels and lack of improvement in her symptoms. Recent lab results indicate a marked elevation in her thyroid levels. She reports persistent fatigue and weight gain, despite a decreased appetite and increased physical activity. She also experiences frequent sensations of being overheated and diaphoretic, even in cooler temperatures. She denies any palpitations, dysphagia, or cephalalgia. Additionally, she reports severe abdominal pain that begins in the RUQ and radiates to her entire abdomen and back, accompanied by nausea and diaphoresis. These episodes occur sporadically and are exacerbated by the consumption of fried or greasy foods. She also experiences irregular bowel movements, alternating between constipation and episodes of profuse diarrhea. She denies any history of gallbladder issues and still has her gallbladder. She also reports significant swelling in her legs, which sometimes turns purple and causes paresthesia. She recently underwent an ultrasound of her right leg, which revealed a sebaceous cyst and a possible venous varicosity or pseudoaneurysm. She denies any chest pain, dyspnea, or urinary symptoms. She is not currently . Review of Systems Constitutional: (+) fatigue, (+) diaphoresis, (+) heat intolerance, (+) weight gain, (+) decreased appetite, (-) fever Head: (+) headaches Ears/Nose/Mouth/Throat: (-) dysphagia Cardiovascular: (+) palpitations, (+) edema, (-) chest pain Respiratory: (-) shortness of breath, (-) cough Gastrointestinal: (+) right upper quadrant abdominal pain, (+) nausea, (+) constipation, (+) diarrhea, (+) epigastric burning, (-) vomiting Genitourinary: (-) dysuria, (-) urinary frequency Skin: (+) leg discoloration Neurological: (+) paresthesias PAST MEDICAL HISTORY Diagnosis Date Anorexia nervosa (HCC) Asthma (HCC) Bipolar disorder (HCC) Borderline personality disorder (HCC) Generalized anxiety disorder Headache High risk sexual behavior pt stopped B/C and she is on high risk antipsychotic medication HRP (high risk ) (HCC) substance abuse/bipolardisorder/personality disorder Menometrorrhagia Nausea and vomiting Opioid dependence (HCC) on suboxone psych/addiction dr delarosa Patient noncompliance Polysubstance dependence (HCC) heroin, thc, opiates , cocaine Polysubstance dependence (HCC) Subjective visual disturbance Tobacco dependence syndrome PAST SURGICAL HISTORY Procedure Laterality Date ADENOIDECTOMY HX 02/26/2013 DELIVERY ONLY Bilateral 07/16/2023 bilateral salpingectomy ORAL SURGERY PROCEDURE wisdom teeth removed TONSILLECTOMY HX 02/26/2013 FAMILY HISTORY Problem Relation Age of Onset Diabetes Mother COPD Father No Known Problems Brother Lymphoma Maternal Grandmother Cancer Maternal Grandfather Colon, lung, brain, throat cancer other (heart disease [Other]) Maternal Grandfather Breast Cancer Paternal Grandmother Diabetes Paternal Grandfather Hypertension Paternal Grandfather Hyperlipidemia Paternal Grandfather Social History Tobacco Use Smoking status: Every Day Current packs/day: 0.50 Types: Cigarettes Smokeless tobacco: Never Vaping Use Vaping status: Former Substance Use Topics Alcohol use: No Drug use: Not Currently Types: Marijuana, Narcotics Comment: mjn during ; but not recently; Hx opiod use - attends AA Current Outpatient Medications Medication Sig QUEtiapine (SEROQUEL) 25 mg tablet Take 25 mg by mouth two times a day. SUBLOCADE 100 mg/0.5 mL injection cyclobenzaprine (FLEXERIL) 10 mg tablet Take 1 tablet by mouth three times a day as needed for muscle spasm or pain. FLUoxetine (PROZAC) 20 mg capsule Take 1 capsule by mouth every afternoon. lithium carbonate 600 mg capsule Take 600 mg by mouth at bedtime as needed. levothyroxine (SYNTHROID) 25 mcg tablet Take 1 tablet by mouth daily before breakfast. famotidine (PEPCID) 40 mg tablet Take 1 tablet by mouth daily at bedtime. No current facility-administered medications for this visit. Objective BP 118/80 (BP Site: Left Arm, BP Position: Sitting) Pulse 89 Temp 36.8 C (98.3 F) Ht 5' 5" (1.651 m) Wt 241 lb (109.3 kg) LMP 11/03/2023 (Exact Date) SpO2 95% BMI 40.10 kg/m Physical Exam GENERAL: NAD, alert and oriented. SKIN: Unremarkable, no rash or skin lesions. HEAD: Normocephalic. EYES: PERRLA, EOMI, conjunctiva clear. EARS: External ears normal, canals clear, TM's normal. NOSE/SINUSES: Nares normal. Septum midline. OROPHARYNX: Lips, mucosa, and tongue normal, good dentition. No oral lesions noted. NECK: Supple, no lymphadenopathy, normal thyroid, no carotid bruits. LUNGS: Clear to auscultation bilaterally, no wheezes/rhonchi/rales. HEART: Regular rate and rhythm, no murmurs. No ectopy. EXTREMITIES: Normal, no deformities, no skin discoloration, no edema. ABDOMEN: Soft, tenderness noted in the right upper quadrant. No hepatosplenomegaly. Bowel sounds normal. NEURO: Awake, alert and oriented x3, cranial nerves II-XII grossly intact, normal gait, no involuntary motions. Labs - TSH: 527 (very elevated) - Other thyroid function tests: Abnormal - Cortisol: Slightly low - Glucose: Normal - TSH: Borderline normal (approximately one year ago) Imaging - Ultrasound, Right Leg: One lesion identified as a sebaceous cyst; another lesion identified as a venous varicosity or possible pseudoaneurysm. Assessment & Plan 1. Abnormal TSH (R79.89) Hypothyroidism, unspecified type (E03.9) TSH levels are significantly elevated. Previous initiation of Synthroid by psychiatrist was inappropriate given normal thyroid function at the time. Current symptoms include fatigue, weight gain, and feeling excessively hot, which are inconsistent with hypothyroidism but may be related to current thyroid dysfunction. - Initiated Synthroid 25 mcg daily. - Ordered follow-up thyroid function tests in 4 weeks. - Referred to endocrinology for further evaluation and management. - Scheduled follow-up appointment in 6 weeks to review lab results and adjust treatment as necessary. 2. RUQ pain (R10.11) Intermittent severe RUQ pain radiating to the back, associated with nausea and dietary triggers (fried and greasy foods). Physical exam reveals tenderness in the RUQ. Differential diagnosis includes cholecystitis or biliary colic. - Ordered abdominal ultrasound to evaluate gallbladder. - Prescribed Pepcid once daily at bedtime. - Advised dietary modifications to avoid fried, greasy, and spicy foods. - Ordered additional labs to assess liver function and biliary status. 3. Leg mass, right (R22.41) Recent ultrasound identified a sebaceous cyst and a possible venous varicosity or pseudoaneurysm in the right leg. - Referred to vascular medicine for further evaluation and monitoring of the pseudoaneurysm. Amilcar Rivera PA-C Return in about 5 weeks (around 09/30/2024). Recording using [employer] software for draft documentation of the visit was discussed with the patient/authorized front desk representative; all questions welcomed and answered. Patient/authorized front desk representative agreed to proceed documented in this encounter [facility] 08-19-2024 History of Present illness Narrative Radiology Service Progress Note PATIENT NAME: Crystal Machuca DATE OF SERVICE: August 19, 2024 TIME: 10:00 AM PATIENT IDENTITY VERIFICATION COMPLETED USING TWO (2) IDENTIFIERS: Name and Date of confirmed by patient verbally. FALL SCREENING: Has the patient had 2 falls in the last year or 1 fall with injury or currently using an Ambulatory Assistive Device (Walker, Cane, Wheelchair, Crutches, etc.)? No PATIENT GENDER DATA: Assigned female at . status: : No status: NO. PATIENT RELEVANT IMPLANT DATA REVIEWED: Not Applicable PATIENT PRESENTS WITH AN IMPLANTABLE OR ATTACHED HIDE PASTER: No RADIOLOGY DEPARTMENT: Ultrasound PERIPHERAL IV DATA: Not applicable SIGNED BY: Apryl Jackson RDMS August 19, 2024 10:00 AM documented in this encounter [facility] 08-19-2024 Note HNO ID: [id number] Author: APRYL JACKSON RDMS Service: ? Author Type: Technologist Type: Progress Notes Filed: 08/19/2024 10:00 Note Text: Radiology Service Progress Note PATIENT NAME: Crystal Machuca DATE OF SERVICE: August 19, 2024 TIME: 10:00 AM PATIENT IDENTITY VERIFICATION COMPLETED USING TWO (2) IDENTIFIERS: Name and Date of confirmed by patient verbally. FALL SCREENING: Has the patient had 2 falls in the last year or 1 fall with injury or currently using an Ambulatory Assistive Device (Walker, Cane, Wheelchair, Crutches, etc.)? No PATIENT GENDER DATA: Assigned female at . status: : No status: NO. PATIENT RELEVANT IMPLANT DATA REVIEWED: Not Applicable PATIENT PRESENTS WITH AN IMPLANTABLE OR ATTACHED HIDE PASTER: No RADIOLOGY DEPARTMENT: Ultrasound PERIPHERAL IV DATA: Not applicable SIGNED BY: Apryl Jackson RDMS August 19, 2024 10:00 AM [facility] 08-13-2024 Note HNO ID: [id number] Author: SHANEL BRADFORD, PT Service: ? Author Type: Physical Therapist Type: Progress Notes Filed: 08/13/2024 11:02 Note Text: Episode Visit Count: 6 Therapist That Will Accept/Oversee The Plan Of Care: Shanel Bradford Start of Care Date: 05/25/24 Onset Date: 03/18/24 Plan of Care Certification Date: 07/30/24 Next Certification Due Date: 08/30/24 REHABILITATION AND SPORTS THERAPY PHYSICAL THERAPY DISCONTINUANCE OF CARE PLAN OF CARE UPDATE: Assessment: Crystal Machuca is discontinued from Physical Therapy services due to maximal benefit.. Patient was seen for 6 visits from Start of Care Date: 05/25/24 to 08/13/2024 and treatment included: Therapeutic exercise, Manual therapy, and Self-fdc management. Patient has seen no improvements with physical therapy, and will be discharged today due to max benefit/lack of progress, despite being compliant with PT and fully carrying out our plan of care. Goals updated on 08/13/2024. Goals for Episode of Care: established 05/25/24 Independent in home exercises. Met Patient will decrease pain rating by 2 points to meet minimal clinical important difference for numeric pain rating scale. 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 Not met Sleep through night without pain/symptoms. Not met Maintain proper sitting posture throughout session. Improved awareness Patient will increase strength of trunk/core to 4+/5 to allow for improve ability to complete ADLs. Not met Restore pain free cervical ROM to WNL to allow for decreased pain and improved functional mobility tolerance. Not met Drive with no aggravation of pain/symptoms. Not met SUBJECTIVE: Patient notes no change in symptoms, despite being compliant with HEP, watching her posture and body mechanics, and taking more rest breaks when able. Sleeping, sitting, driving, working, caring for her young son, and pretty much all ADLs still hurt the same in both neck and back. A lot of radicular symptoms into the legs this week, she's not sure why as she hasn't been overly active or changed much. Functional Limitations: sitting, rising from a chair, standing, walking, stair negotiation, bending, heavy exertion, physical activities, recreational activities, lifting, working, sleeping, driving Pain: Pain Pain Level: 7 Pain Location: Low Back/Lumbar Spine - Right, Leg - Right, Neck - Right, Shoulder - Right Description: Sharp, Stabbing, Aching, Sore Frequency: Continuous PROMIS Scales 08/13/2024 06/24/2024 05/24/2024 Higher is Better Phys Func - T Score 35 (moderate dysfunction) 36 (moderate dysfunction) 35 (moderate dysfunction) Phys Func - Percentile 7 8 7 Self-Eff Symptom - T Score 45 (Average) 38 (Low) Self-Eff Symptom - Percentile 31 12 Proxy-reported 05/18/2024 Lower is Better Pain Interference - T Score 63 (moderate) Pain Interference - Percentile 10 T-scores: mean of general population = 50. 5 points is clinically meaningfully difference Percentiles provide an indication of how the patient's score ranks in relation to the general population. Higher percentile rankings indicate better function/quality of life. 50th percentile is the average of the general population and indicates half of respondents had a worse score. OBJECTIVE MEASURES WITH LEVEL OF FUNCTION: Lumbar Spine AROM Lumbar Flexion: Minimal limitation, Peripheralizing Lumbar Extension: Moderate limitation, End range pain Lumbar R Side-Bend: Minimal limitation Lumbar L Side-Bend: Minimal limitation, End range pain Lumbar R Rotation: Normal Lumbar L Rotation: Minimal limitation Cervical Spine ROM Cervical Flexion AROM: Normal, End range pain Cervical Extension AROM: Minimal limitation, End range pain Cervical Side-Bend Right AROM: Minimal limitation, End range pain Cervical Side-Bend Left AROM: Minimal limitation Cervical Rotation Right AROM: Minimal limitation Cervical Rotation Left AROM: Minimal limitation LE Strength Trunk Strength: 3/5 R LE Strength: 4+ to 5/5 L LE Strength: 4+ to 5/5 Special Tests - Hip and Spine SLR Test: Right Positive DALY Test: Left Positive TREATMENT: Self-Long-Term Management: 1: Reviewed HEP and encouraged her to continue. Discussed plan of care and chronic pain. Reviewed body mechanics and energy conservation stategies. 2: Objective measures obtained Skilled Intervention: Skilled judgment in the selection of proper modification for activity of daily living/home management based on clinical presentation, deficits, and needs. Reviewed patient specific diagnosis in relation to activities of daily living/home management. Activity progression based on professional judgement. Billing Self-Care/Home Management Treatment Minutes: 26 Skilled Treatment Time Minutes (timed and untimed codes): 26 Total Session Time (min (more content not included)... [facility] 08-13-2024 History of Present illness Narrative Images from the original note were not included. Episode Visit Count: 6 Therapist That Will Accept/Oversee The Plan Of Care: Shanel Bradford Start of Care Date: 05/25/24 Onset Date: 03/18/24 Plan of Care Certification Date: 07/30/24 Next Certification Due Date: 08/30/24 REHABILITATION AND SPORTS THERAPY PHYSICAL THERAPY DISCONTINUANCE OF CARE PLAN OF CARE UPDATE: Assessment: Crystal Machuca is discontinued from Physical Therapy services due to maximal benefit.. Patient was seen for 6 visits from Start of Care Date: 05/25/24 to 08/13/2024 and treatment included: Therapeutic exercise, Manual therapy, and Self-fdc management. Patient has seen no improvements with physical therapy, and will be discharged today due to max benefit/lack of progress, despite being compliant with PT and fully carrying out our plan of care. Goals updated on 08/13/2024. Goals for Episode of Care: established 05/25/24 Independent in home exercises. Met Patient will decrease pain rating by 2 points to meet minimal clinical important difference for numeric pain rating scale. 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 Not met Sleep through night without pain/symptoms. Not met Maintain proper sitting posture throughout session. Improved awareness Patient will increase strength of trunk/core to 4+/5 to allow for improve ability to complete ADLs. Not met Restore pain free cervical ROM to WNL to allow for decreased pain and improved functional mobility tolerance. Not met Drive with no aggravation of pain/symptoms. Not met SUBJECTIVE: Patient notes no change in symptoms, despite being compliant with HEP, watching her posture and body mechanics, and taking more rest breaks when able. Sleeping, sitting, driving, working, caring for her young son, and pretty much all ADLs still hurt the same in both neck and back. A lot of radicular symptoms into the legs this week, she's not sure why as she hasn't been overly active or changed much. Functional Limitations: sitting, rising from a chair, standing, walking, stair negotiation, bending, heavy exertion, physical activities, recreational activities, lifting, working, sleeping, driving Pain: Pain Pain Level: 7 Pain Location: Low Back/Lumbar Spine - Right, Leg - Right, Neck - Right, Shoulder - Right Description: Sharp, Stabbing, Aching, Sore Frequency: Continuous PROMIS Scales 08/13/2024 06/24/2024 05/24/2024 Higher is Better Phys Func - T Score 35 (moderate dysfunction) 36 (moderate dysfunction) 35 (moderate dysfunction) Phys Func - Percentile 7 8 7 Self-Eff Symptom - T Score 45 (Average) 38 (Low) Self-Eff Symptom - Percentile 31 12 Proxy-reported 05/18/2024 Lower is Better Pain Interference - T Score 63 (moderate) Pain Interference - Percentile 10 T-scores: mean of general population = 50. 5 points is clinically meaningfully difference Percentiles provide an indication of how the patient's score ranks in relation to the general population. Higher percentile rankings indicate better function/quality of life. 50th percentile is the average of the general population and indicates half of respondents had a worse score. OBJECTIVE MEASURES WITH LEVEL OF FUNCTION: Lumbar Spine AROM Lumbar Flexion: Minimal limitation, Peripheralizing Lumbar Extension: Moderate limitation, End range pain Lumbar R Side-Bend: Minimal limitation Lumbar L Side-Bend: Minimal limitation, End range pain Lumbar R Rotation: Normal Lumbar L Rotation: Minimal limitation Cervical Spine ROM Cervical Flexion AROM: Normal, End range pain Cervical Extension AROM: Minimal limitation, End range pain Cervical Side-Bend Right AROM: Minimal limitation, End range pain Cervical Side-Bend Left AROM: Minimal limitation Cervical Rotation Right AROM: Minimal limitation Cervical Rotation Left AROM: Minimal limitation LE Strength Trunk Strength: 3/5 R LE Strength: 4+ to 5/5 L LE Strength: 4+ to 5/5 Special Tests - Hip and Spine SLR Test: Right Positive DALY Test: Left Positive TREATMENT: Self-Long-Term Management: 1: Reviewed HEP and encouraged her to continue. Discussed plan of care and chronic pain. Reviewed body mechanics and energy conservation stategies. 2: Objective measures obtained Skilled Intervention: Skilled judgment in the selection of proper modification for activity of daily living/home management based on clinical presentation, deficits, and needs. Reviewed patient specific diagnosis in relation to activities of daily living/home management. Activity progression based on professional judgement. Billing Self-Care/Home Management Treatment Minutes: 26 Skilled Treatment Time Minutes (timed and untimed codes): 26 Total Session Time (minutes): 26 Session Start Time : 1002 Session Stop Time : 1028 Shanel Bradford PT documented in this encounter [facility] 08-05-2024 History of Present illness Narrative Subjective Crystal is a 34-year-old female, with a history of anxiety, presenting for evaluation of hyperhidrosis, weight gain, and fatigue. Crystal reports experiencing hyperhidrosis since the of her child approximately 1 year ago. She describes feeling "overly hot" to the point of nausea, even in cold temperatures, and notes constant sweating. She denies chills, cephalalgia, dizziness, visual changes, palpitations, or dyspnea. She has not measured her body temperature during these episodes. She also reports significant weight gain over the past 2 months, despite a decreased appetite and efforts to eat healthily. She denies emesis or diarrhea. She has been on Seroquel for anxiety for the past 3-4 months, which she notes has been effective. She also takes lithium, fluoxetine, and a muscle relaxant at bedtime. She receives a monthly injection from 180, which she has been on for 2 years. She denies any recent changes in medication or dosage adjustments. She has not been diagnosed with diabetes and denies any urinary symptoms. Crystal has a history of hypothyroidism and was previously on Synthroid, prescribed by her psychiatrist to aid in weight loss and increase energy levels. However, she discontinued the medication 7 months ago after her thyroid levels were found to be low. She has not had her thyroid levels checked since discontinuing the medication. She reports feeling fatigued and lethargic, with occasional weakness and shakiness during physical activity. She also experiences muscle aches and swelling in her hands, which she describes as "puffy" and painful when making a fist. She denies any recent illness or upper respiratory symptoms. Crystal reports regular but heavy menstrual periods. She denies any history of seizures. She has a lump behind her knee, which she describes as non-painful unless pressed hard. She has not had this evaluated. Review of Systems Constitutional: (+) excessive sweating, (+) heat intolerance, (+) weight gain, (+) fatigue, (+) decreased appetite, (-) chills Head: (-) headache Eyes: (-) blurred vision, (-) double vision, (-) visual disturbances Ears/Nose/Mouth/Throat: (+) xerostomia Cardiovascular: (-) palpitations Respiratory: (-) shortness of breath Gastrointestinal: (+) nausea, (-) vomiting, (-) diarrhea Genitourinary: (+) heavy menses, (-) dysuria, (-) urinary frequency Musculoskeletal: (+) myalgia, (+) hand swelling, (+) lumps behind right knee Neurological: (+) shakiness with exertion, (-) dizziness, (-) seizures Psychiatric: (+) anxiety, (-) sleep disturbance PAST MEDICAL HISTORY Diagnosis Date Anorexia nervosa ([facility]) Asthma ([facility]) Bipolar disorder ([facility]) Borderline personality disorder ([facility]) Generalized anxiety disorder Headache High risk sexual behavior pt stopped B/C and she is on high risk antipsychotic medication HRP (high risk ) ([facility]) substance abuse/bipolardisorder/personality disorder Menometrorrhagia Nausea and vomiting Opioid dependence ([facility]) on suboxone psych/addiction dr delarosa Patient noncompliance Polysubstance dependence ([facility]) heroin, thc, opiates , cocaine Polysubstance dependence ([facility]) Subjective visual disturbance Tobacco dependence syndrome PAST SURGICAL HISTORY Procedure Laterality Date ADENOIDECTOMY HX 02/26/2013 DELIVERY ONLY Bilateral 07/16/2023 bilateral salpingectomy ORAL SURGERY PROCEDURE wisdom teeth removed TONSILLECTOMY HX 02/26/2013 FAMILY HISTORY Problem Relation Age of Onset Diabetes Mother COPD Father No Known Problems Brother Lymphoma Maternal Grandmother Cancer Maternal Grandfather Colon, lung, brain, throat cancer other (heart disease [Other]) Maternal Grandfather Breast Cancer Paternal Grandmother Diabetes Paternal Grandfather Hypertension Paternal Grandfather Hyperlipidemia Paternal Grandfather Social History Tobacco Use Smoking status: Every Day Current packs/day: 0.50 Types: Cigarettes Smokeless tobacco: Never Vaping Use Vaping status: Former Substance Use Topics Alcohol use: No Drug use: Not Currently Types: Marijuana, Narcotics Comment: mjn during ; but not recently; Hx opiod use - attends AA Current Outpatient Medications Medication Sig SUBLOCADE 100 mg/0.5 mL injection FLUoxetine (PROZAC) 20 mg capsule Take 1 capsule by mouth every afternoon. lithium carbonate 600 mg capsule Take 600 mg by mouth at bedtime as needed. tiZANidine (ZANAFLEX) 4 mg tablet Take 1 tablet by mouth once daily. QUEtiapine (SEROQUEL) 25 mg tablet Take 25 mg by mouth two times a day. levothyroxine (SYNTHROID) 25 mcg tablet Take 1 tablet by mouth daily before breakfast. famotidine (PEPCID) 40 mg tablet Take 1 tablet by mouth daily at bedtime. No current facility-administered medications for this visit. Objective BP 130/90 (BP Site: Left Arm, BP Position: Sitting) Pulse 80 Temp 37.5 C (99.5 F) Ht 5' 5" (1.651 m) Wt 238 lb (108 kg) LMP 11/03/2023 (Exact Date) SpO2 97% BMI 39.61 kg/m Physical Exam GENERAL: NAD, alert and oriented SKIN: unremarkable, no rash or skin lesions. HEAD: normocephalic EYES: PERRLA, EOMI, conjunctiva clear EARS: external ears normal, canals clear, TM's normal. NOSE/SINUSES: Nares normal. Septum midline. OROPHARYNX: lips, mucosa, and tongue normal, good dentition. No oral lesions noted. NECK: Supple, no lymphadenopathy, normal thyroid, no carotid bruits. LUNGS: Clear to auscultation bilaterally, no wheezes/rhonchi/rales. HEART: Regular rate and rhythm, no murmurs. No ectopy. EXTREMITIES: Normal, No deformities, No skin discoloration, No edema. Palpable cyst noted behind the knee, non-tender. NEURO: Awake, alert and oriented x3, cranial nerves II-XII grossly intact, normal gait, no involuntary motions Labs: - TSH: Normal (most recent) - Davey level: Low - TSH: Low - ALVARADO: Normal Imaging: - Right lower extremity ultrasound: No deep vein thrombosis, consistent with superficial thrombophlebitis Assessment & Plan 1. Headaches (R51.9) No current headaches reported. 2. Abnormal TSH (R79.89) Previous TSH levels were low while on Synthroid, which was discontinued several months ago. Recent TSH levels were normal. - Ordered TSH level to reassess thyroid function. 3. Heat intolerance (R68.89) Dry mouth (R68.2) Experiencing significant heat intolerance and dry mouth. Differential diagnosis includes neuroleptic malignant syndrome secondary to Seroquel. - Discontinue Seroquel. - Initiate Prazosin 2 mg at bedtime. - Ordered serum magnesium, CK, cortisol, and prolactin levels. - Follow-up in 3 weeks to assess symptom improvement and review lab results. 4. Insomnia, unspecified type (G47.00) Insomnia managed with Seroquel, which is now discontinued due to potential side effects. - Initiate Prazosin 2 mg at bedtime for insomnia management. 5. Mass of leg, right (R22.41) Palpable mass on the right leg, likely a dermoid cyst; no erythema or significant tenderness on examination. - Ordered ultrasound of the right leg to evaluate the mass. Amilcar Rivera PA-C Return in about 3 weeks (around 08/26/2024). Recording using [employer] software for draft documentation of the visit was discussed with the patient/authorized front desk representative; all questions welcomed and answered. Patient/authorized front desk representative agreed to proceed documented in this encounter [facility] 08-05-2024 Note HNO ID: [id number] Author: AMILCAR RIVERA PA-C Service: ? Author Type: Physician Receiving Coordinator Type: Progress Notes Filed: 09/16/2024 21:17 Note Text: Julian Atwood is a 34-year-old female, with a history of anxiety, presenting for evaluation of hyperhidrosis, weight gain, and fatigue. Crystal reports experiencing hyperhidrosis since the of her child approximately 1 year ago. She describes feeling "overly hot" to the point of nausea, even in cold temperatures, and notes constant sweating. She denies chills, cephalalgia, dizziness, visual changes, palpitations, or dyspnea. She has not measured her body temperature during these episodes. She also reports significant weight gain over the past 2 months, despite a decreased appetite and efforts to eat healthily. She denies emesis or diarrhea. She has been on Seroquel for anxiety for the past 3-4 months, which she notes has been effective. She also takes lithium, fluoxetine, and a muscle relaxant at bedtime. She receives a monthly injection from 180, which she has been on for 2 years. She denies any recent changes in medication or dosage adjustments. She has not been diagnosed with diabetes and denies any urinary symptoms. Crystal has a history of hypothyroidism and was previously on Synthroid, prescribed by her psychiatrist to aid in weight loss and increase energy levels. However, she discontinued the medication 7 months ago after her thyroid levels were found to be low. She has not had her thyroid levels checked since discontinuing the medication. She reports feeling fatigued and lethargic, with occasional weakness and shakiness during physical activity. She also experiences muscle aches and swelling in her hands, which she describes as "puffy" and painful when making a fist. She denies any recent illness or upper respiratory symptoms. Crystal reports regular but heavy menstrual periods. She denies any history of seizures. She has a lump behind her knee, which she describes as non-painful unless pressed hard. She has not had this evaluated. Review of Systems Constitutional: (+) excessive sweating, (+) heat intolerance, (+) weight gain, (+) fatigue, (+) decreased appetite, (-) chills Head: (-) headache Eyes: (-) blurred vision, (-) double vision, (-) visual disturbances Ears/Nose/Mouth/Throat: (+) xerostomia Cardiovascular: (-) palpitations Respiratory: (-) shortness of breath Gastrointestinal: (+) nausea, (-) vomiting, (-) diarrhea Genitourinary: (+) heavy menses, (-) dysuria, (-) urinary frequency Musculoskeletal: (+) myalgia, (+) hand swelling, (+) lumps behind right knee Neurological: (+) shakiness with exertion, (-) dizziness, (-) seizures Psychiatric: (+) anxiety, (-) sleep disturbance PAST MEDICAL HISTORY Diagnosis Date Anorexia nervosa ([facility]) Asthma ([facility]) Bipolar disorder ([facility]) Borderline personality disorder ([facility]) Generalized anxiety disorder Headache High risk sexual behavior pt stopped B/C and she is on high risk antipsychotic medication HRP (high risk ) ([facility]) substance abuse/bipolardisorder/personality disorder Menometrorrhagia Nausea and vomiting Opioid dependence ([facility]) on suboxone psych/addiction dr delarosa Patient noncompliance Polysubstance dependence ([facility]) heroin, thc, opiates , cocaine Polysubstance dependence ([facility]) Subjective visual disturbance Tobacco dependence syndrome PAST SURGICAL HISTORY Procedure Laterality Date ADENOIDECTOMY HX 02/26/2013 DELIVERY ONLY Bilateral 07/16/2023 bilateral salpingectomy ORAL SURGERY PROCEDURE wisdom teeth removed TONSILLECTOMY HX 02/26/2013 FAMILY HISTORY Problem Relation Age of Onset Diabetes Mother COPD Father No Known Problems Brother Lymphoma Maternal Grandmother Cancer Maternal Grandfather Colon, lung, brain, throat cancer other (heart disease [Other]) Maternal Grandfather Breast Cancer Paternal Grandmother Diabetes Paternal Grandfather Hypertension Paternal Grandfather Hyperlipidemia Paternal Grandfather Social History Tobacco Use Smoking status: Every Day Current packs/day: 0.50 Types: Cigarettes Smokeless tobacco: Never Vaping Use Vaping status: Former Substance Use Topics Alcohol use: No Drug use: Not Currently Types: Marijuana, Narcotics Comment: mjn during ; but not recently; Hx opiod use - attends AA Current Outpatient Medications Medication Sig SUBLOCADE 100 mg/0.5 mL injection FLUoxetine (PROZAC) 20 mg capsule Take 1 capsule by mouth every afternoon. lithium carbonate 600 mg capsule Take 600 mg by mouth at bedtime as needed. tiZANidine (ZANAFLEX) 4 mg tablet Take 1 tablet by mouth once daily. QUEtiapine (SEROQUEL) 25 mg tablet Take 25 mg by mouth two times a day. levothyroxine (SYNTHROID) 25 mcg tablet Take 1 tablet by mouth daily before breakfast. famotidine (PEPCID) 40 mg tablet Take 1 tablet by mouth daily at bedtime. No current facility-admin (more content not included)... [facility] 07-30-2024 Note HNO ID: [id number] Author: SHANEL BRADFORD PT Service: ? Author Type: Physical Therapist Type: Progress Notes Filed: 07/30/2024 16:27 Note Text: Episode Visit Count: 5 Therapist That Will Accept/Oversee The Plan Of Care: Shanel Bradford Start of Care Date: 05/25/24 Onset Date: 03/18/24 Plan of Care Certification Date: 07/30/24 Next Certification Due Date: 08/30/24 REHABILITATION AND SPORTS THERAPY PHYSICAL THERAPY RE-EVALUATION PLAN OF CARE UPDATE: Assessment: Crystal Machuca demonstrates difficulty with rising from a chair, standing, walking, bending, heavy exertion, lifting, physical activities, recreational activities, working, and driving. The patient has not progressed towards goals. Patient continues to present with impairments in ADL's, overall function, range of motion, strength, and symptom management that interfere with sitting, rising from a chair, standing, walking, stair negotiation, bending, heavy exertion, physical activities, recreational activities, lifting, working, sleeping, driving . Current prognosis is Poor due to: clinical presentation, multiple co- morbidities, chronic nature of impairments, limited tolerance to activity, limited support system, occupational demands, poor past response to therapy intervention . The patient will benefit from continued skilled therapy services to meet the updated goals for this plan of care as noted below. Goals updated on 07/13/2024. Goals for Episode of Care: established 05/25/24 Independent in home exercises. Met Patient will decrease pain rating by 2 points to meet minimal clinical important difference for numeric pain rating scale. 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 Not met Sleep through night without pain/symptoms. Not met Maintain proper sitting posture throughout session. Improved awareness Patient will increase strength of trunk/core to 4+/5 to allow for improve ability to complete ADLs. Not met Restore pain free cervical ROM to WNL to allow for decreased pain and improved functional mobility tolerance. Not met Drive with no aggravation of pain/symptoms. Not met Time Frame for Goals and Treatment : 08/14/24 Planned Interventions, Frequency, and Duration: 1x/week, 2 weeks Total Number of Visits Planned: 2 Patient to be seen for Therapeutic exercise (36556), Neuromuscular re-education (96246), Manual therapy (22399), Therapeutic activities (98393), Self-fdc management (37578), Patient/Family/Caregiver Education, Body Mechanics Training PLAN FOR NEXT VISIT: DC next session due to lack of progress made SUBJECTIVE: Patient's MRI was denied due to not having 6 therapy visits despite not seeing any progress. She returns today to finish those 6 and fullfill insurance requirements. Patient notes since she was last seen no change, except that when she was at work, not lifting or exerting herself in any heavy way, she got an extreme nazia horse in the right upper back next to her shoulder blade. Took a full week to resolve. Gone today, and feels very tight in the neck. Hurts to move certain ways, mostly turning and tilting cause the pain. Low back still hurting the most lower right. Knapp with leaning/bending forward. Burning still down the right leg to her foot when it is bad, mostly to the knee, though.. Functional Limitations: sitting, rising from a chair, standing, walking, stair negotiation, bending, heavy exertion, physical activities, recreational activities, lifting, working, sleeping, driving Pain: Pain Pain Level: 8 Pain Location: Low Back/Lumbar Spine - Right, Leg - Right, Neck - Right, Shoulder - Right Description: Sharp, Stabbing Frequency: Continuous PROMIS Scales 06/24/2024 05/24/2024 05/18/2024 Higher is Better Phys Func - T Score 36 (moderate dysfunction) 35 (moderate dysfunction) Phys Func - Percentile 8 7 Self-Eff Symptom - T Score 38 (Low) 37 (Low) Self-Eff Symptom - Percentile 12 10 Proxy-reported 05/18/2024 Lower is Better Pain Interference - T Score 63 (moderate) Pain Interference - Percentile 10 T-scores: mean of general population = 50. 5 points is clinically meaningfully difference Percentiles provide an indication of how the patient's score ranks in relation to the general population. Higher percentile rankings indicate better function/quality of life. 50th percentile is the average of the general population and indicates half of respondents had a worse score. OBJECTIVE MEASURES WITH LEVEL OF FUNCTION: Reflexes - Upper Extremity R Brachioradialis : 2+ R Biceps: 2+ L Brachioradialis : 2+ L Biceps: 2+ Reflexes - Lower Extremity R Patellar: 3+ R Achilles: 1+ L Patellar: 3+ L Achilles: 1+ Lumbar Spine AROM Lumbar Flexion: Moderate limitation Lumbar Extension: End range pain Lumbar R Side-Bend: Minimal limitation Lumbar (more content not included)... [facility] 07-30-2024 History of Present illness Narrative Images from the original note were not included. Episode Visit Count: 5 Therapist That Will Accept/Oversee The Plan Of Care: Shanel Bradford Start of Care Date: 05/25/24 Onset Date: 03/18/24 Plan of Care Certification Date: 07/30/24 Next Certification Due Date: 08/30/24 REHABILITATION AND SPORTS THERAPY PHYSICAL THERAPY RE-EVALUATION PLAN OF CARE UPDATE: Assessment: Crystal Machuca demonstrates difficulty with rising from a chair, standing, walking, bending, heavy exertion, lifting, physical activities, recreational activities, working, and driving. The patient has not progressed towards goals. Patient continues to present with impairments in ADL's, overall function, range of motion, strength, and symptom management that interfere with sitting, rising from a chair, standing, walking, stair negotiation, bending, heavy exertion, physical activities, recreational activities, lifting, working, sleeping, driving . Current prognosis is Poor due to: clinical presentation, multiple co- morbidities, chronic nature of impairments, limited tolerance to activity, limited support system, occupational demands, poor past response to therapy intervention . The patient will benefit from continued skilled therapy services to meet the updated goals for this plan of care as noted below. Goals updated on 07/13/2024. Goals for Episode of Care: established 05/25/24 Independent in home exercises. Met Patient will decrease pain rating by 2 points to meet minimal clinical important difference for numeric pain rating scale. 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 Not met Sleep through night without pain/symptoms. Not met Maintain proper sitting posture throughout session. Improved awareness Patient will increase strength of trunk/core to 4+/5 to allow for improve ability to complete ADLs. Not met Restore pain free cervical ROM to WNL to allow for decreased pain and improved functional mobility tolerance. Not met Drive with no aggravation of pain/symptoms. Not met Time Frame for Goals and Treatment : 08/14/24 Planned Interventions, Frequency, and Duration: 1x/week, 2 weeks Total Number of Visits Planned: 2 Patient to be seen for Therapeutic exercise (52468), Neuromuscular re-education (75636), Manual therapy (08736), Therapeutic activities (17941), Self-fdc management (95835), Patient/Family/Caregiver Education, Body Mechanics Training PLAN FOR NEXT VISIT: DC next session due to lack of progress made SUBJECTIVE: Patient's MRI was denied due to not having 6 therapy visits despite not seeing any progress. She returns today to finish those 6 and fullfill insurance requirements. Patient notes since she was last seen no change, except that when she was at work, not lifting or exerting herself in any heavy way, she got an extreme nazia horse in the right upper back next to her shoulder blade. Took a full week to resolve. Gone today, and feels very tight in the neck. Hurts to move certain ways, mostly turning and tilting cause the pain. Low back still hurting the most lower right. Knapp with leaning/bending forward. Burning still down the right leg to her foot when it is bad, mostly to the knee, though.. Functional Limitations: sitting, rising from a chair, standing, walking, stair negotiation, bending, heavy exertion, physical activities, recreational activities, lifting, working, sleeping, driving Pain: Pain Pain Level: 8 Pain Location: Low Back/Lumbar Spine - Right, Leg - Right, Neck - Right, Shoulder - Right Description: Sharp, Stabbing Frequency: Continuous PROMIS Scales 06/24/2024 05/24/2024 05/18/2024 Higher is Better Phys Func - T Score 36 (moderate dysfunction) 35 (moderate dysfunction) Phys Func - Percentile 8 7 Self-Eff Symptom - T Score 38 (Low) 37 (Low) Self-Eff Symptom - Percentile 12 10 Proxy-reported 05/18/2024 Lower is Better Pain Interference - T Score 63 (moderate) Pain Interference - Percentile 10 T-scores: mean of general population = 50. 5 points is clinically meaningfully difference Percentiles provide an indication of how the patient's score ranks in relation to the general population. Higher percentile rankings indicate better function/quality of life. 50th percentile is the average of the general population and indicates half of respondents had a worse score. OBJECTIVE MEASURES WITH LEVEL OF FUNCTION: Reflexes - Upper Extremity R Brachioradialis : 2+ R Biceps: 2+ L Brachioradialis : 2+ L Biceps: 2+ Reflexes - Lower Extremity R Patellar: 3+ R Achilles: 1+ L Patellar: 3+ L Achilles: 1+ Lumbar Spine AROM Lumbar Flexion: Moderate limitation Lumbar Extension: End range pain Lumbar R Side-Bend: Minimal limitation Lumbar L Side-Bend: Minimal limitation Lumbar R Rotation: Minimal limitation Lumbar L Rotation: Minimal limitation Cervical Spine ROM Cervical Flexion AROM: Minimal limitation Cervical Extension AROM: Minimal limitation Cervical Side-Bend Right AROM: Moderate limitation Cervical Side-Bend Left AROM: Moderate limitation Cervical Rotation Right AROM: Moderate limitation Cervical Rotation Left AROM: Moderate limitation LE Strength Trunk Strength: 3/5 Special Tests - Hip and Spine SLR Test: Right Positive DALY Test: Left Positive TREATMENT: Re-evaluation: Performed due to return of patient to therapy for same diagnosis. Self-Long-Term Management: 1: Reviewed imaging from various body parts and reveiwed findings with patient 2: Discussed some new symptoms she brought up and encouraged her to discuss with her PCP including 15+# weight gain in the last month 3: Discussed Vit D deficiency and PT implications Skilled Intervention: Skilled judgment in the selection of proper modification for activity of daily living/home management based on clinical presentation, deficits, and needs. Reviewed patient specific diagnosis in relation to activities of daily living/home management. Activity progression based on professional judgement. Billing * Re-Evaluation Complexity: 1 Unit Self-Care/Home Management Treatment Minutes: 30 Skilled Treatment Time Minutes (timed and untimed codes): 42 Total Session Time (minutes): 42 Session Start Time : 1045 Session Stop Time : 1127 Shanel Bradford PT documented in this encounter [facility] 07-22-2024 Telephone encounter Note Pt continues to have neck pain and radicular symptoms. I placed order for MRI of c-spine. [facility] 07-22-2024 Miscellaneous Notes Pt continues to have neck pain and radicular symptoms. I placed order for MRI of c-spine. documented in this encounter [facility] 07-14-2024 Instructions Mikhail Mckeon MD - 07/14/2024 10:25 AM EDT Schedule the MRI of your lower back as soon as you can. Start physical therapy for the hips. You can continue Celebrex if you would like or switch to [id number] anti-inflammatories such as ibuprofen. Follow-up here 4 or 5 days after the MRI to discuss the findings and make further recommendations. documented in this encounter [facility] 07-14-2024 History of Present illness Narrative Radiology Service Progress Note PATIENT NAME: Crystal Machuca DATE OF SERVICE: July 14, 2024 TIME: 10:13 AM PATIENT IDENTITY VERIFICATION COMPLETED USING TWO (2) IDENTIFIERS: Name and Date of confirmed by patient verbally. FALL SCREENING: Has the patient had 2 falls in the last year or 1 fall with injury or currently using an Ambulatory Assistive Device (Walker, Cane, Wheelchair, Crutches, etc.)? No PATIENT GENDER DATA: Assigned female at . status: : No status: N/A PATIENT RELEVANT IMPLANT DATA REVIEWED: Not Applicable PATIENT PRESENTS WITH AN IMPLANTABLE OR ATTACHED HIDE PASTER: No RADIOLOGY DEPARTMENT: General X-ray: Exam(s) Completed: Pelvis X-Ray: Pelvis with Hip Bilateral PERIPHERAL IV DATA: Not applicable SIGNED BY: JOSE CARLOS Orr) July 14, 2024 10:13 AM documented in this encounter [facility] 07-14-2024 Note HNO ID: [id number] Author: MIGUEL UNGER RT (R) Service: Radiology Author Type: Technologist Type: Progress Notes Filed: 07/14/2024 10:13 Note Text: Radiology Service Progress Note PATIENT NAME: Crystal Machuca DATE OF SERVICE: July 14, 2024 TIME: 10:13 AM PATIENT IDENTITY VERIFICATION COMPLETED USING TWO (2) IDENTIFIERS: Name and Date of confirmed by patient verbally. FALL SCREENING: Has the patient had 2 falls in the last year or 1 fall with injury or currently using an Ambulatory Assistive Device (Walker, Cane, Wheelchair, Crutches, etc.)? No PATIENT GENDER DATA: Assigned female at . status: : No status: N/A PATIENT RELEVANT IMPLANT DATA REVIEWED: Not Applicable PATIENT PRESENTS WITH AN IMPLANTABLE OR ATTACHED HIDE PASTER: No RADIOLOGY DEPARTMENT: General X-ray: Exam(s) Completed: Pelvis X-Ray: Pelvis with Hip Bilateral PERIPHERAL IV DATA: Not applicable SIGNED BY: Miguel Unger, RT(R) July 14, 2024 10:13 AM [facility] 07-14-2024 Note HNO ID: [id number] Author: MIKHAIL MCKEON MD Service: ? Author Type: Physician Type: Progress Notes Filed: 07/14/2024 10:28 Note Text: Crystal Machuca is a 34 year old presenting with Follow Up and Pain of the Middle Back and Follow Up and Pain of the Lower Back HPI: Patient is here for follow-up of her neck and back pain. She states she went through therapy but symptoms did not improve. She said that her hips are bothering her as well and she is having weakness when she is going up and down stairs. Left hip is bothering her more than the right. She states it hurts when she is rotating it or lifting it. Pain is more into the groin area. There was no injury there. Her back pain was more left-sided now it is more right-sided. It does seem to go down the legs. No loss of bowel or bladder control. Neck pain is still bothering her with the left upper back pain but that has not worsened. Review of Systems Constitutional: Negative for chills and fever. Musculoskeletal: Positive for back pain, joint pain (Bilateral hips) and neck pain. PAST MEDICAL HISTORY Diagnosis Date Anorexia nervosa (HCC) Asthma (HCC) Bipolar disorder (HCC) Borderline personality disorder (HCC) Generalized anxiety disorder Headache High risk sexual behavior pt stopped B/C and she is on high risk antipsychotic medication HRP (high risk ) ([facility]) substance abuse/bipolardisorder/personality disorder Menometrorrhagia Nausea and vomiting Opioid dependence (HCC) on suboxone psych/addiction dr delarosa Patient noncompliance Polysubstance dependence ([facility]) heroin, thc, opiates , cocaine Polysubstance dependence ([facility]) Subjective visual disturbance Tobacco dependence syndrome FAMILY HISTORY Problem Relation Age of Onset No Known Problems Mother No Known Problems Father No Known Problems Brother No Known Problems Maternal Grandmother Cancer Maternal Grandfather Colon, lung, brain, throat cancer other (heart disease [Other]) Maternal Grandfather Breast Cancer Paternal Grandmother Diabetes Paternal Grandfather Hypertension Paternal Grandfather Hyperlipidemia Paternal Grandfather Tobacco Use: High Risk (07/14/2024) Patient History Smoking Tobacco Use: Every Day Smokeless Tobacco Use: Never Passive Exposure: Not on file Alcohol Use: No Current Outpatient Medications Medication Sig celecoxib (CELEBREX) 200 mg capsule Take 1 capsule by mouth once daily. cyclobenzaprine (FLEXERIL) 10 mg tablet Take 1 tablet by mouth three times a day as needed for muscle spasm or pain. QUEtiapine (SEROQUEL) 25 mg tablet Take 25 mg by mouth three times a day. ferrous sulfate 325 mg (65 mg iron) tablet Take 1 tablet by mouth once daily. Cholecalciferol, Vitamin D3, (VITAMIN D-3) 50 mcg (2,000 unit) cap Take 1 capsule by mouth once daily. FLUoxetine (PROZAC) 20 mg capsule Take 1 capsule by mouth every afternoon. lithium carbonate 600 mg capsule Take 600 mg by mouth at bedtime as needed. levothyroxine (SYNTHROID) 50 mcg tablet Take 50 mcg by mouth every morning. prazosin HCl (PRAZOSIN ORAL) Take 1 mg by mouth once daily. SUBLOCADE 300 mg/1.5 mL injection Inject 300 mg subcutaneously once every month. (Patient not taking: Reported on 07/14/2024) No current facility-administered medications for this visit. ALLERGIES Allergen Reactions Augmentin [Amoxicil* Hives [place] [Hydrocodone-* Vomiting Penicillin Hives Tramadol Vomiting Pulse 76 Ht 5' 5" (1.65m) Wt 214 lb (97.1kg) SpO2 99% LMP 11/03/2023 BMI 35.61 kg/(m2). Physical Exam Vitals reviewed. Constitutional: General: She is not in acute distress. Musculoskeletal: Comments: Still has limited range of motion of the cervical spine and left paracervical and upper thoracic soft tissue tenderness.She has 1+ patella tendon and Achilles tendon reflexes equal bilateral. Patient has tenderness paralumbar soft tissue. She has pain with straight leg raise at about 45 degrees bilateral. She does have slight pain with internal/external rotation of the hips bilateral. Some mild weakness with hip flexion against resistance bilateral. Patient did have some tenderness in the left hip flexors and some mild pain with left hip flexion. She had some slight pain with DALY testing on the left. Right hip had no tenderness. X-rays of the hips today were unremarkable. Awaiting official read. Neurological: Mental Status: She is alert. Procedures ASSESSMENT/PLAN: 1. Left-sided low back pain with left-sided sciatica, unspecified chronicity - ICD9: 724.3, ICD10: M54.42 (primary diagnosis) 2. Bilateral hip pain - ICD9: 719.45, ICD10: M25.551, M25.552 Patient has bilateral hip pain. At this time I recommend she start therapy for the hips. - XR HIP BILATERAL 5V PEL/AP/LAT EACH HIP - CONSULT TO PHYSICAL THERAPY 3. Neck pain on left side - ICD9: 723.1, ICD10: M54.2 4. Spinal stenosis of lumbar region without neurogenic claudication (more content not included)... [facility] 07-14-2024 History of Present illness Narrative Crystal Machuca is a 34 year old presenting with Follow Up and Pain of the Middle Back and Follow Up and Pain of the Lower Back HPI: Patient is here for follow-up of her neck and back pain. She states she went through therapy but symptoms did not improve. She said that her hips are bothering her as well and she is having weakness when she is going up and down stairs. Left hip is bothering her more than the right. She states it hurts when she is rotating it or lifting it. Pain is more into the groin area. There was no injury there. Her back pain was more left-sided now it is more right-sided. It does seem to go down the legs. No loss of bowel or bladder control. Neck pain is still bothering her with the left upper back pain but that has not worsened. Review of Systems Constitutional: Negative for chills and fever. Musculoskeletal: Positive for back pain, joint pain (Bilateral hips) and neck pain. PAST MEDICAL HISTORY Diagnosis Date Anorexia nervosa (HCC) Asthma (HCC) Bipolar disorder (HCC) Borderline personality disorder (HCC) Generalized anxiety disorder Headache High risk sexual behavior pt stopped B/C and she is on high risk antipsychotic medication HRP (high risk ) (HCC) substance abuse/bipolardisorder/personality disorder Menometrorrhagia Nausea and vomiting Opioid dependence (HCC) on suboxone psych/addiction dr delarosa Patient noncompliance Polysubstance dependence ([facility]) heroin, thc, opiates , cocaine Polysubstance dependence (HCC) Subjective visual disturbance Tobacco dependence syndrome FAMILY HISTORY Problem Relation Age of Onset No Known Problems Mother No Known Problems Father No Known Problems Brother No Known Problems Maternal Grandmother Cancer Maternal Grandfather Colon, lung, brain, throat cancer other (heart disease [Other]) Maternal Grandfather Breast Cancer Paternal Grandmother Diabetes Paternal Grandfather Hypertension Paternal Grandfather Hyperlipidemia Paternal Grandfather Tobacco Use: High Risk (07/14/2024) Patient History Smoking Tobacco Use: Every Day Smokeless Tobacco Use: Never Passive Exposure: Not on file Alcohol Use: No Current Outpatient Medications Medication Sig celecoxib (CELEBREX) 200 mg capsule Take 1 capsule by mouth once daily. cyclobenzaprine (FLEXERIL) 10 mg tablet Take 1 tablet by mouth three times a day as needed for muscle spasm or pain. QUEtiapine (SEROQUEL) 25 mg tablet Take 25 mg by mouth three times a day. ferrous sulfate 325 mg (65 mg iron) tablet Take 1 tablet by mouth once daily. Cholecalciferol, Vitamin D3, (VITAMIN D-3) 50 mcg (2,000 unit) cap Take 1 capsule by mouth once daily. FLUoxetine (PROZAC) 20 mg capsule Take 1 capsule by mouth every afternoon. lithium carbonate 600 mg capsule Take 600 mg by mouth at bedtime as needed. levothyroxine (SYNTHROID) 50 mcg tablet Take 50 mcg by mouth every morning. prazosin HCl (PRAZOSIN ORAL) Take 1 mg by mouth once daily. SUBLOCADE 300 mg/1.5 mL injection Inject 300 mg subcutaneously once every month. (Patient not taking: Reported on 07/14/2024) No current facility-administered medications for this visit. ALLERGIES Allergen Reactions Augmentin [Amoxicil* Hives [place] [Hydrocodone-* Vomiting Penicillin Hives Tramadol Vomiting Pulse 76 Ht 5' 5" (1.65m) Wt 214 lb (97.1kg) SpO2 99% LMP 11/03/2023 BMI 35.61 kg/(m^2). Physical Exam Vitals reviewed. Constitutional: General: She is not in acute distress. Musculoskeletal: Comments: Still has limited range of motion of the cervical spine and left paracervical and upper thoracic soft tissue tenderness.She has 1+ patella tendon and Achilles tendon reflexes equal bilateral. Patient has tenderness paralumbar soft tissue. She has pain with straight leg raise at about 45 degrees bilateral. She does have slight pain with internal/external rotation of the hips bilateral. Some mild weakness with hip flexion against resistance bilateral. Patient did have some tenderness in the left hip flexors and some mild pain with left hip flexion. She had some slight pain with DALY testing on the left. Right hip had no tenderness. X-rays of the hips today were unremarkable. Awaiting official read. Neurological: Mental Status: She is alert. Procedures ASSESSMENT/PLAN: 1. Left-sided low back pain with left-sided sciatica, unspecified chronicity - ICD9: 724.3, ICD10: M54.42 (primary diagnosis) 2. Bilateral hip pain - ICD9: 719.45, ICD10: M25.551, M25.552 Patient has bilateral hip pain. At this time I recommend she start therapy for the hips. - XR HIP BILATERAL 5V PEL/AP/LAT EACH HIP - CONSULT TO PHYSICAL THERAPY 3. Neck pain on left side - ICD9: 723.1, ICD10: M54.2 4. Spinal stenosis of lumbar region without neurogenic claudication - ICD9: 724.02, ICD10: M48.061 Patient continues to have low back pain with radicular symptoms. At this time MRI is ordered to further evaluate. She is to continue her exercises at home and use anti-inflammatories as needed. Follow-up here for 5 days after the MRI to discuss the findings. - MRI LUMBAR SPINE WO IVCON No problem-specific Assessment & Plan notes found for this encounter. 34 y/o female patient here today to follow up with mid & low back pain. Patient states the pain is worse. She completed PT. documented in this encounter [facility] 07-14-2024 Note HNO ID: [id number] Author: SYLVIA BANSAL MA Service: ? Author Type: Call Center Supervisor Type: Progress Notes Filed: 07/14/2024 10:28 Note Text: 34 y/o female patient here today to follow up with mid AND low back pain. Patient states the pain is worse. She completed PT. [facility] 07-13-2024 Note HNO ID: [id number] Author: SHANEL BRADFORD PT Service: ? Author Type: Physical Therapist Type: Progress Notes Filed: 07/13/2024 15:47 Note Text: Episode Visit Count: 4 Therapist That Will Accept/Oversee The Plan Of Care: Shanel Bradford Start of Care Date: 05/25/24 Onset Date: 03/18/24 Plan of Care Certification Date: 05/25/24 Next Certification Due Date: 07/25/24 REHABILITATION AND SPORTS THERAPY PHYSICAL THERAPY DISCONTINUANCE OF CARE PLAN OF CARE UPDATE: Assessment: Crystal Machuca is discontinued from Physical Therapy services due to maximal benefit.. Patient was seen for 4 visits from Start of Care Date: 05/25/24 to 07/13/2024 and treatment included: Therapeutic exercise, Manual therapy, and Self-fdc management. Goals updated on 07/13/2024. Goals for Episode of Care: established 05/25/24 Independent in home exercises. Met Patient will decrease pain rating by 2 points to meet minimal clinical important difference for numeric pain rating scale. 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 Not met Sleep through night without pain/symptoms. Not met Maintain proper sitting posture throughout session. Improved awareness Patient will increase strength of trunk/core to 4+/5 to allow for improve ability to complete ADLs. Not met Restore pain free cervical ROM to WNL to allow for decreased pain and improved functional mobility tolerance. Not met Drive with no aggravation of pain/symptoms. Not met SUBJECTIVE: Really severe R sided LBP and weakness into the RLE since last . Hard to sleep and get comfortable, waking her up often throughout the night. It is making her miserable and very difficult to work, drive, and care for her son. Functional Limitations: sitting, rising from a chair, standing, walking, stair negotiation, bending, heavy exertion, physical activities, recreational activities, lifting, working, sleeping, driving Pain: Pain Pain Level: 9 Pain Location: Low Back/Lumbar Spine - Right, Leg - Right Description: Sharp, Stabbing, Numbness (Heavy/weak) Frequency: Continuous PROMIS Scales 06/24/2024 05/24/2024 05/18/2024 Higher is Better Phys Func - T Score 36 (moderate dysfunction) 35 (moderate dysfunction) Phys Func - Percentile 8 7 Self-Eff Symptom - T Score 38 (Low) 37 (Low) Self-Eff Symptom - Percentile 12 10 Proxy-reported 05/18/2024 Lower is Better Pain Interference - T Score 63 (moderate) Pain Interference - Percentile 10 T-scores: mean of general population = 50. 5 points is clinically meaningfully difference Percentiles provide an indication of how the patient's score ranks in relation to the general population. Higher percentile rankings indicate better function/quality of life. 50th percentile is the average of the general population and indicates half of respondents had a worse score. OBJECTIVE MEASURES WITH LEVEL OF FUNCTION: Reflexes - Lower Extremity R Patellar: 3+ R Achilles: 1+ L Patellar: 3+ L Achilles: 1+ Lumbar Spine AROM Lumbar Flexion: Moderate limitation Lumbar Extension: End range pain Lumbar R Side-Bend: Minimal limitation Lumbar L Side-Bend: Minimal limitation Lumbar R Rotation: Minimal limitation Lumbar L Rotation: Minimal limitation Cervical Spine ROM Cervical Flexion AROM: Minimal limitation Cervical Extension AROM: Minimal limitation Cervical Side-Bend Right AROM: Moderate limitation Cervical Side-Bend Left AROM: Moderate limitation Cervical Rotation Right AROM: Moderate limitation Cervical Rotation Left AROM: Moderate limitation LE Strength Trunk Strength: 3 Special Tests - Hip and Spine Hip and Spine Special Tests: DALY Test SLR Test: Right Positive DALY Test: Left Positive TREATMENT: Therapeutic Exercise: 1: *Prone lying on 1-2 pillows x3 min each pillow 2: *Prone lying x3 min 3: *Prone lying with R hip/knee flexed up x3 min 4: Objective measures obtained Skilled Intervention: Patient was educated in proper exercise technique and purpose for exercises. Skilled judgment was used in selection of appropriate interventions. Provided written instruction for home exercise program to facilitate proper performance and compliance. Correct performance of therapeutic exercises was facilitated with verbal, visual, and tactile cuing. Billing Therapeutic Exercise Treatment Minutes: 24 Skilled Treatment Time Minutes (timed and untimed codes): 24 Total Session Time (minutes): 24 Session Start Time : 1457 Session Stop Time : 152 Shanel Bradford PT [facility] 07-13-2024 History of Present illness Narrative Images from the original note were not included. Episode Visit Count: 4 Therapist That Will Accept/Oversee The Plan Of Care: Shanel Bradford Start of Care Date: 05/25/24 Onset Date: 03/18/24 Plan of Care Certification Date: 05/25/24 Next Certification Due Date: 07/25/24 REHABILITATION AND SPORTS THERAPY PHYSICAL THERAPY DISCONTINUANCE OF CARE PLAN OF CARE UPDATE: Assessment: Crystal Machuca is discontinued from Physical Therapy services due to maximal benefit.. Patient was seen for 4 visits from Start of Care Date: 05/25/24 to 07/13/2024 and treatment included: Therapeutic exercise, Manual therapy, and Self-fdc management. Goals updated on 07/13/2024. Goals for Episode of Care: established 05/25/24 Independent in home exercises. Met Patient will decrease pain rating by 2 points to meet minimal clinical important difference for numeric pain rating scale. 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 Not met Sleep through night without pain/symptoms. Not met Maintain proper sitting posture throughout session. Improved awareness Patient will increase strength of trunk/core to 4+/5 to allow for improve ability to complete ADLs. Not met Restore pain free cervical ROM to WNL to allow for decreased pain and improved functional mobility tolerance. Not met Drive with no aggravation of pain/symptoms. Not met SUBJECTIVE: Really severe R sided LBP and weakness into the RLE since last . Hard to sleep and get comfortable, waking her up often throughout the night. It is making her miserable and very difficult to work, drive, and care for her son. Functional Limitations: sitting, rising from a chair, standing, walking, stair negotiation, bending, heavy exertion, physical activities, recreational activities, lifting, working, sleeping, driving Pain: Pain Pain Level: 9 Pain Location: Low Back/Lumbar Spine - Right, Leg - Right Description: Sharp, Stabbing, Numbness (Heavy/weak) Frequency: Continuous PROMIS Scales 06/24/2024 05/24/2024 05/18/2024 Higher is Better Phys Func - T Score 36 (moderate dysfunction) 35 (moderate dysfunction) Phys Func - Percentile 8 7 Self-Eff Symptom - T Score 38 (Low) 37 (Low) Self-Eff Symptom - Percentile 12 10 Proxy-reported 05/18/2024 Lower is Better Pain Interference - T Score 63 (moderate) Pain Interference - Percentile 10 T-scores: mean of general population = 50. 5 points is clinically meaningfully difference Percentiles provide an indication of how the patient's score ranks in relation to the general population. Higher percentile rankings indicate better function/quality of life. 50th percentile is the average of the general population and indicates half of respondents had a worse score. OBJECTIVE MEASURES WITH LEVEL OF FUNCTION: Reflexes - Lower Extremity R Patellar: 3+ R Achilles: 1+ L Patellar: 3+ L Achilles: 1+ Lumbar Spine AROM Lumbar Flexion: Moderate limitation Lumbar Extension: End range pain Lumbar R Side-Bend: Minimal limitation Lumbar L Side-Bend: Minimal limitation Lumbar R Rotation: Minimal limitation Lumbar L Rotation: Minimal limitation Cervical Spine ROM Cervical Flexion AROM: Minimal limitation Cervical Extension AROM: Minimal limitation Cervical Side-Bend Right AROM: Moderate limitation Cervical Side-Bend Left AROM: Moderate limitation Cervical Rotation Right AROM: Moderate limitation Cervical Rotation Left AROM: Moderate limitation LE Strength Trunk Strength: 3 Special Tests - Hip and Spine Hip and Spine Special Tests: DALY Test SLR Test: Right Positive DALY Test: Left Positive TREATMENT: Therapeutic Exercise: 1: *Prone lying on 1-2 pillows x3 min each pillow 2: *Prone lying x3 min 3: *Prone lying with R hip/knee flexed up x3 min 4: Objective measures obtained Skilled Intervention: Patient was educated in proper exercise technique and purpose for exercises. Skilled judgment was used in selection of appropriate interventions. Provided written instruction for home exercise program to facilitate proper performance and compliance. Correct performance of therapeutic exercises was facilitated with verbal, visual, and tactile cuing. Billing Therapeutic Exercise Treatment Minutes: 24 Skilled Treatment Time Minutes (timed and untimed codes): 24 Total Session Time (minutes): 24 Session Start Time : 1457 Session Stop Time : 1521 Shanel Bradford PT Program_ID:[id number] Access Code: [email or web address] URL: [email or web address] Date: 07-13-2024 Prepared By: Shanel Bradford Program Notes Exercises - Seated Passive Cervical Retraction - 1 x daily - 7 x weekly - 3 sets - 10 reps - Supine Transversus Abdominis Bracing - Hands on Ground - 1 x daily - 7 x weekly - 3 sets - 10 reps - Supine March - 1 x daily - 7 x weekly - 3 sets - 10 reps - Quadruped Pelvic Floor Contraction with Opposite Arm and Leg Lift - 1 x daily - 7 x weekly - 3 sets - 10 reps - Lying Prone with 2 Pillows - 1 x daily - 7 x weekly - 3 sets - 10 reps - cc MDT LS Lying with Hips off Center Prone - 1 x daily - 7 x weekly - 3 sets - 10 reps documented in this encounter [facility] 06-30-2024 Note HNO ID: [id number] Author: SHANEL BRADFORD PT Service: ? Author Type: Physical Therapist Type: Progress Notes Filed: 07/01/2024 12:57 Note Text: Episode Visit Count: 3 Therapist That Will Accept/Oversee The Plan Of Care: Shanel Bradford Start of Care Date: 05/25/24 Onset Date: 03/18/24 Plan of Care Certification Date: 05/25/24 Next Certification Due Date: 07/25/24 Patient Identified by Name and Date of : Yes REHABILITATION AND SPORTS THERAPY PHYSICAL THERAPY TREATMENT NOTE ASSESSMENT: Crystal Machuca tolerated the session with increased symptoms. She demonstrated difficulty with tolerating exercises. The patient will continue to benefit from ongoing skilled physical therapy to progress toward set goals. PLAN FOR NEXT VISIT: Continue neutral spine strengthening SUBJECTIVE: Patient states traction last session felt good in the moment but started hurting when she got in the car, followed by pain in her leg.She is having pain in her low back radiating into her butt, knees and legs. Pain: Pain Pain Level: 6 Pain Location: Low Back/Lumbar Spine- Midline OBJECTIVE MEASURES WITH LEVEL OF FUNCTION: Form observed throughout session. TREATMENT: Therapeutic Exercise: 1: Bridges 2x10 (multiples cues to not arch back, cues do to a PPT first. 3/10 pain) 2: Prone lying x3 min (pain did not get worse but did not get better) 3: Prone lying on elbows x3 min (pain did not get worse but did not get better) 4: SKTC 1x30 sec/side (R side relieved some sx, but overall pain did not get better) Skilled Intervention: Patient was educated in proper exercise technique and purpose for exercises. Reviewed and educated patient on additions/changes for home exercise program as above (*). Skilled judgment was used in selection of appropriate interventions. Correct performance of therapeutic exercises was facilitated with verbal, visual, and tactile cuing. Patient education as noted. Manual Therapy: 1: Manual Cervical Traction x5 min Skilled Intervention: Manual skills to improve joint mobility, ROM, and decrease pain. Utilized anatomy knowledge of the therapist, and assessment of patient's response to intervention. Billing Therapeutic Exercise Treatment Minutes: 34 Manual TherapyTreatment Minutes: 5 Skilled Treatment Time Minutes (timed and untimed codes): 39 Total Session Time (minutes): 39 Session Start Time : 1553 Session Stop Time : 1632 SHANTANU Santiago Supervising therapist was present and guided the care of the patient for the entire session on this date. All documentation was reviewed and agreed upon. Shanel Bradford PT [facility] 06-30-2024 History of Present illness Narrative Episode Visit Count: 3 Therapist That Will Accept/Oversee The Plan Of Care: Shanel Bradford Start of Care Date: 05/25/24 Onset Date: 03/18/24 Plan of Care Certification Date: 05/25/24 Next Certification Due Date: 07/25/24 Patient Identified by Name and Date of : Yes REHABILITATION AND SPORTS THERAPY PHYSICAL THERAPY TREATMENT NOTE ASSESSMENT: Crystal Machuca tolerated the session with increased symptoms. She demonstrated difficulty with tolerating exercises. The patient will continue to benefit from ongoing skilled physical therapy to progress toward set goals. PLAN FOR NEXT VISIT: Continue neutral spine strengthening SUBJECTIVE: Patient states traction last session felt good in the moment but started hurting when she got in the car, followed by pain in her leg.She is having pain in her low back radiating into her butt, knees and legs. Pain: Pain Pain Level: 6 Pain Location: Low Back/Lumbar Spine- Midline OBJECTIVE MEASURES WITH LEVEL OF FUNCTION: Form observed throughout session. TREATMENT: Therapeutic Exercise: 1: Bridges 2x10 (multiples cues to not arch back, cues do to a PPT first. 3/10 pain) 2: Prone lying x3 min (pain did not get worse but did not get better) 3: Prone lying on elbows x3 min (pain did not get worse but did not get better) 4: SKTC 1x30 sec/side (R side relieved some sx, but overall pain did not get better) Skilled Intervention: Patient was educated in proper exercise technique and purpose for exercises. Reviewed and educated patient on additions/changes for home exercise program as above (*). Skilled judgment was used in selection of appropriate interventions. Correct performance of therapeutic exercises was facilitated with verbal, visual, and tactile cuing. Patient education as noted. Manual Therapy: 1: Manual Cervical Traction x5 min Skilled Intervention: Manual skills to improve joint mobility, ROM, and decrease pain. Utilized anatomy knowledge of the therapist, and assessment of patient's response to intervention. Billing Therapeutic Exercise Treatment Minutes: 34 Manual TherapyTreatment Minutes: 5 Skilled Treatment Time Minutes (timed and untimed codes): 39 Total Session Time (minutes): 39 Session Start Time : 1553 Session Stop Time : 1632 SHANTANU Santiago Supervising therapist was present and guided the care of the patient for the entire session on this date. All documentation was reviewed and agreed upon. Shanel Bradford PT documented in this encounter [facility] 06-24-2024 Note HNO ID: [id number] Author: SHANEL BRADFORD PT Service: ? Author Type: Physical Therapist Type: Progress Notes Filed: 06/24/2024 14:57 Note Text: Episode Visit Count: 2 Therapist That Will Accept/Oversee The Plan Of Care: Shanel Bradford Start of Care Date: 05/25/24 Onset Date: 03/18/24 Plan of Care Certification Date: 05/25/24 Next Certification Due Date: 07/25/24 REHABILITATION AND SPORTS THERAPY PHYSICAL THERAPY PROGRESS REPORT PLAN OF CARE UPDATE: Assessment: Crystal Machuca demonstrates no improvement in rising from a chair, standing, walking, stair negotiation, bending, heavy exertion, lifting, physical activities, working, sleeping, driving, and carrying. The patient is appropriate to continue to progress towards previously established goals. Patient continues to present with impairments in ADL's, overall function, range of motion, strength, and symptom management that interfere with sitting, bending, heavy exertion, physical activities, lifting . Current prognosis is Fair due to: clinical presentation, multiple co- morbidities, chronic nature of impairments, limited support system, occupational demands . The patient will benefit from continued skilled therapy services to meet the updated goals for this plan of care as noted below. Goals updated on 06/24/2024. Goals for Episode of Care: established 05/25/24 Independent in home exercises. Met Patient will decrease pain rating by 2 points to meet minimal clinical important difference for numeric pain rating scale. 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 Not met Sleep through night without pain/symptoms. Not met Maintain proper sitting posture throughout session. Improved awareness Patient will increase strength of trunk/core to 4+/5 to allow for improve ability to complete ADLs. Not met Restore pain free cervical ROM to WNL to allow for decreased pain and improved functional mobility tolerance. Not met Drive with no aggravation of pain/symptoms. Not met Time Frame for Goals and Treatment : 07/26/24 Planned Interventions, Frequency, and Duration: 1x/week, 4 weeks Total Number of Visits Planned: 4 Patient to be seen for Therapeutic exercise (82426), Manual therapy (05076), Therapeutic activities (24429), Self-fdc management (78604), Neuromuscular re-education (47993), Patient/Family/Caregiver Education, Body Mechanics Training PLAN FOR NEXT VISIT: Continue neutral spine strengthening, may attempt traction again if needed Classification Pain Mechanism Classification: Neuropathic Low Back Pain Classification: Symptom Modulation SUBJECTIVE: No change in symptoms since first being seen. 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 Patient notes that if she is bent over for awhile she can get stuck like that with it being very difficult to straighten back out. Still radicular symptoms down the left leg. Neck is still very tight with limited motion. Notes that she is also getting more frequent COURTNEY's of unknown origin. Functional Limitations: sitting, bending, heavy exertion, physical activities, lifting Pain: Pain Pain Level: 8 Pain Location: Low Back/Lumbar Spine- Midline Description: Burning Frequency: Continuous PROMIS Scales 06/24/2024 05/24/2024 05/18/2024 Higher is Better Phys Func - T Score 36 (moderate dysfunction) 35 (moderate dysfunction) Phys Func - Percentile 8 7 Self-Eff Symptom - T Score 38 (Low) 37 (Low) Self-Eff Symptom - Percentile 12 10 Proxy-reported 05/18/2024 Lower is Better Pain Interference - T Score 63 (moderate) Pain Interference - Percentile 10 T-scores: mean of general population = 50. 5 points is clinically meaningfully difference Percentiles provide an indication of how the patient's score ranks in relation to the general population. Higher percentile rankings indicate better function/quality of life. 50th percentile is the average of the general population and indicates half of respondents had a worse score. OBJECTIVE MEASURES WITH LEVEL OF FUNCTION: Lumbar Spine AROM Lumbar Flexion: Normal Lumbar Extension: End range pain Lumbar R Side-Bend: Normal Lumbar L Side-Bend: Normal Lumbar R Rotation: Normal Lumbar L Rotation: Normal Cervical Spine ROM Cervical ROM : Limitation AROM Cervical Flexion AROM: Minimal limitation Cervical Extension AROM: Minimal limitation Cervical Side-Bend Right AROM: Moderate limitation, End range pain Cervical Side-Bend Left AROM: Moderate limitation, End range pain Cervical Rotation Right AROM: Moderate limitation, End range pain Cervical Rotation Left AROM: Moderate limitation, End range pain LE Strength Trunk Strength: 3+/5 Special Tests - Hip and Spine SLR Test: Left Positive TREATMENT: Manual Therapy: 1: Manual lumbar belt traction x15 min feet e (more content not included)... [facility] 06-24-2024 History of Present illness Narrative Images from the original note were not included. Episode Visit Count: 2 Therapist That Will Accept/Oversee The Plan Of Care: Shanel Bradford Start of Care Date: 05/25/24 Onset Date: 03/18/24 Plan of Care Certification Date: 05/25/24 Next Certification Due Date: 07/25/24 REHABILITATION AND SPORTS THERAPY PHYSICAL THERAPY PROGRESS REPORT PLAN OF CARE UPDATE: Assessment: Crystal Ko Brigette demonstrates no improvement in rising from a chair, standing, walking, stair negotiation, bending, heavy exertion, lifting, physical activities, working, sleeping, driving, and carrying. The patient is appropriate to continue to progress towards previously established goals. Patient continues to present with impairments in ADL's, overall function, range of motion, strength, and symptom management that interfere with sitting, bending, heavy exertion, physical activities, lifting . Current prognosis is Fair due to: clinical presentation, multiple co- morbidities, chronic nature of impairments, limited support system, occupational demands . The patient will benefit from continued skilled therapy services to meet the updated goals for this plan of care as noted below. Goals updated on 06/24/2024. Goals for Episode of Care: established 05/25/24 Independent in home exercises. Met Patient will decrease pain rating by 2 points to meet minimal clinical important difference for numeric pain rating scale. 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 Not met Sleep through night without pain/symptoms. Not met Maintain proper sitting posture throughout session. Improved awareness Patient will increase strength of trunk/core to 4+/5 to allow for improve ability to complete ADLs. Not met Restore pain free cervical ROM to WNL to allow for decreased pain and improved functional mobility tolerance. Not met Drive with no aggravation of pain/symptoms. Not met Time Frame for Goals and Treatment : 07/26/24 Planned Interventions, Frequency, and Duration: 1x/week, 4 weeks Total Number of Visits Planned: 4 Patient to be seen for Therapeutic exercise (56108), Manual therapy (58750), Therapeutic activities (75170), Self-fdc management ([id number]), Neuromuscular re-education ([id number]), Patient/Family/Caregiver Education, Body Mechanics Training PLAN FOR NEXT VISIT: Continue neutral spine strengthening, may attempt traction again if needed Classification Pain Mechanism Classification: Neuropathic Low Back Pain Classification: Symptom Modulation SUBJECTIVE: No change in symptoms since first being seen. 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 Patient notes that if she is bent over for awhile she can get stuck like that with it being very difficult to straighten back out. Still radicular symptoms down the left leg. Neck is still very tight with limited motion. Notes that she is also getting more frequent COURTNEY's of unknown origin. Functional Limitations: sitting, bending, heavy exertion, physical activities, lifting Pain: Pain Pain Level: 8 Pain Location: Low Back/Lumbar Spine- Midline Description: Burning Frequency: Continuous PROMIS Scales 06/24/2024 05/24/2024 05/18/2024 Higher is Better Phys Func - T Score 36 (moderate dysfunction) 35 (moderate dysfunction) Phys Func - Percentile 8 7 Self-Eff Symptom - T Score 38 (Low) 37 (Low) Self-Eff Symptom - Percentile 12 10 Proxy-reported 05/18/2024 Lower is Better Pain Interference - T Score 63 (moderate) Pain Interference - Percentile 10 T-scores: mean of general population = 50. 5 points is clinically meaningfully difference Percentiles provide an indication of how the patient's score ranks in relation to the general population. Higher percentile rankings indicate better function/quality of life. 50th percentile is the average of the general population and indicates half of respondents had a worse score. OBJECTIVE MEASURES WITH LEVEL OF FUNCTION: Lumbar Spine AROM Lumbar Flexion: Normal Lumbar Extension: End range pain Lumbar R Side-Bend: Normal Lumbar L Side-Bend: Normal Lumbar R Rotation: Normal Lumbar L Rotation: Normal Cervical Spine ROM Cervical ROM : Limitation AROM Cervical Flexion AROM: Minimal limitation Cervical Extension AROM: Minimal limitation Cervical Side-Bend Right AROM: Moderate limitation, End range pain Cervical Side-Bend Left AROM: Moderate limitation, End range pain Cervical Rotation Right AROM: Moderate limitation, End range pain Cervical Rotation Left AROM: Moderate limitation, End range pain LE Strength Trunk Strength: 3+/5 Special Tests - Hip and Spine SLR Test: Left Positive TREATMENT: Manual Therapy: 1: Manual lumbar belt traction x15 min feet elevated on stool 2: Objective measures obtained Skilled Intervention: Manual skills to improve joint mobility, ROM, and decrease pain. Utilized anatomy knowledge of the therapist, and assessment of patient's response to intervention. Billing Manual TherapyTreatment Minutes: 26 Skilled Treatment Time Minutes (timed and untimed codes): 26 Total Session Time (minutes): 26 Session Start Time : 1400 Session Stop Time : 1426 Shanle Bradford PT documented in this encounter [facility] 06-16-2024 Instructions Mikhail Mckeon MD - 06/16/2024 9:58 AM EDT Try to do therapy once a week and continue doing therapy at home. Take the Flexeril as needed and I am going to have you stop the Naprosyn and try Celebrex for your inflammation and pain. I would like to see you back in a month and if you are not improving at that time I would consider ordering an MRI. documented in this encounter [facility] 06-16-2024 Note HNO ID: [id number] Author: MIKHAIL MCKEON MD Service: ? Author Type: Physician Type: Progress Notes Filed: 06/16/2024 10:01 Note Text: Crystal Machuca is a 33 year old presenting with Follow Up and Pain of the Middle Back and Follow Up and Pain of the Lower Back HPI: Patient is here today for follow-up of her low back pain. She is having neck pain as well but that is improved with her muscle relaxer. The back pain is with bothering her the most. It radiates into the left leg. She was only able to do 1 therapy session so far and has some more scheduled. Review of Systems Constitutional: Negative for chills and fever. Musculoskeletal: Positive for back pain and neck pain. Neurological: Positive for tingling and focal weakness (Lower extremity). PAST MEDICAL HISTORY Diagnosis Date Anorexia nervosa (HCC) Asthma (HCC) Bipolar disorder (HCC) Borderline personality disorder (HCC) Generalized anxiety disorder Headache High risk sexual behavior pt stopped B/C and she is on high risk antipsychotic medication HRP (high risk ) ([facility]) substance abuse/bipolardisorder/personality disorder Menometrorrhagia Nausea and vomiting Opioid dependence ([facility]) on suboxone psych/addiction dr delarosa Patient noncompliance Polysubstance dependence (HCC) heroin, thc, opiates , cocaine Polysubstance dependence (HCC) Subjective visual disturbance Tobacco dependence syndrome FAMILY HISTORY Problem Relation Age of Onset No Known Problems Mother No Known Problems Father No Known Problems Brother No Known Problems Maternal Grandmother Cancer Maternal Grandfather Colon, lung, brain, throat cancer other (heart disease [Other]) Maternal Grandfather Breast Cancer Paternal Grandmother Diabetes Paternal Grandfather Hypertension Paternal Grandfather Hyperlipidemia Paternal Grandfather Tobacco Use: High Risk (06/16/2024) Patient History Smoking Tobacco Use: Every Day Smokeless Tobacco Use: Never Passive Exposure: Not on file Alcohol Use: No Current Outpatient Medications Medication Sig cyclobenzaprine (FLEXERIL) 10 mg tablet Take 1 tablet by mouth three times a day as needed for muscle spasm or pain. QUEtiapine (SEROQUEL) 25 mg tablet Take 25 mg by mouth three times a day. ferrous sulfate 325 mg (65 mg iron) tablet Take 1 tablet by mouth once daily. Cholecalciferol, Vitamin D3, (VITAMIN D-3) 50 mcg (2,000 unit) cap Take 1 capsule by mouth once daily. naproxen (NAPROSYN) 500 mg tablet Take 1 tablet by mouth two times a day as needed for pain. for pain. Take with food. FLUoxetine (PROZAC) 20 mg capsule Take 1 capsule by mouth every afternoon. lithium carbonate 600 mg capsule Take 600 mg by mouth at bedtime as needed. levothyroxine (SYNTHROID) 50 mcg tablet Take 50 mcg by mouth every morning. SUBLOCADE 300 mg/1.5 mL injection Inject 300 mg subcutaneously once every month. prazosin HCl (PRAZOSIN ORAL) Take 1 mg by mouth once daily. No current facility-administered medications for this visit. ALLERGIES Allergen Reactions Augmentin [Amoxicil* Hives [place] [Hydrocodone-* Vomiting Penicillin Hives Tramadol Vomiting Pulse 77 Ht 5' 5" (1.65m) Wt 214 lb (97.1kg) SpO2 98% LMP 11/03/2023 BMI 35.61 kg/(m2). Physical Exam Constitutional: General: She is not in acute distress. Musculoskeletal: Comments: Patient has some limited flexion and extension of her lumbar spine. She has pain when she is to extend. She has tenderness paralumbar soft tissue and negative straight leg raise bilateral. DTRs are 1+ patella and Achilles equal bilateral. No focal weakness distally. Neurological: Mental Status: She is alert. Procedures ASSESSMENT/PLAN: 1. Left-sided low back pain with left-sided sciatica, unspecified chronicity - ICD9: 724.3, ICD10: M54.42 (primary diagnosis) At this time patient is to go forward with physical therapy. I did prescribe Celebrex and had her stop the Naprosyn. Take the Flexeril as needed. Return here in 4 weeks for recheck. If not improving would order MRI of the lumbar spine. 2. Neck pain on left side - ICD9: 723.1, ICD10: M54.2 Pain seems to improve. Continue Flexeril and I did prescribe her Celebrex. Continue physical therapy. Follow-up in 4 weeks for recheck. No problem-specific Assessment AND Plan notes found for this encounter. [facility] 06-16-2024 History of Present illness Narrative Crystal Machuca is a 33 year old presenting with Follow Up and Pain of the Middle Back and Follow Up and Pain of the Lower Back HPI: Patient is here today for follow-up of her low back pain. She is having neck pain as well but that is improved with her muscle relaxer. The back pain is with bothering her the most. It radiates into the left leg. She was only able to do 1 therapy session so far and has some more scheduled. Review of Systems Constitutional: Negative for chills and fever. Musculoskeletal: Positive for back pain and neck pain. Neurological: Positive for tingling and focal weakness (Lower extremity). PAST MEDICAL HISTORY Diagnosis Date Anorexia nervosa (HCC) Asthma (HCC) Bipolar disorder (HCC) Borderline personality disorder (HCC) Generalized anxiety disorder Headache High risk sexual behavior pt stopped B/C and she is on high risk antipsychotic medication HRP (high risk ) ([facility]) substance abuse/bipolardisorder/personality disorder Menometrorrhagia Nausea and vomiting Opioid dependence ([facility]) on suboxone psych/addiction dr delarosa Patient noncompliance Polysubstance dependence ([facility]) heroin, thc, opiates , cocaine Polysubstance dependence ([facility]) Subjective visual disturbance Tobacco dependence syndrome FAMILY HISTORY Problem Relation Age of Onset No Known Problems Mother No Known Problems Father No Known Problems Brother No Known Problems Maternal Grandmother Cancer Maternal Grandfather Colon, lung, brain, throat cancer other (heart disease [Other]) Maternal Grandfather Breast Cancer Paternal Grandmother Diabetes Paternal Grandfather Hypertension Paternal Grandfather Hyperlipidemia Paternal Grandfather Tobacco Use: High Risk (06/16/2024) Patient History Smoking Tobacco Use: Every Day Smokeless Tobacco Use: Never Passive Exposure: Not on file Alcohol Use: No Current Outpatient Medications Medication Sig cyclobenzaprine (FLEXERIL) 10 mg tablet Take 1 tablet by mouth three times a day as needed for muscle spasm or pain. QUEtiapine (SEROQUEL) 25 mg tablet Take 25 mg by mouth three times a day. ferrous sulfate 325 mg (65 mg iron) tablet Take 1 tablet by mouth once daily. Cholecalciferol, Vitamin D3, (VITAMIN D-3) 50 mcg (2,000 unit) cap Take 1 capsule by mouth once daily. naproxen (NAPROSYN) 500 mg tablet Take 1 tablet by mouth two times a day as needed for pain. for pain. Take with food. FLUoxetine (PROZAC) 20 mg capsule Take 1 capsule by mouth every afternoon. lithium carbonate 600 mg capsule Take 600 mg by mouth at bedtime as needed. levothyroxine (SYNTHROID) 50 mcg tablet Take 50 mcg by mouth every morning. SUBLOCADE 300 mg/1.5 mL injection Inject 300 mg subcutaneously once every month. prazosin HCl (PRAZOSIN ORAL) Take 1 mg by mouth once daily. No current facility-administered medications for this visit. ALLERGIES Allergen Reactions Augmentin [Amoxicil* Hives [place] [Hydrocodone-* Vomiting Penicillin Hives Tramadol Vomiting Pulse 77 Ht 5' 5" (1.65m) Wt 214 lb (97.1kg) SpO2 98% LMP 11/03/2023 BMI 35.61 kg/(m^2). Physical Exam Constitutional: General: She is not in acute distress. Musculoskeletal: Comments: Patient has some limited flexion and extension of her lumbar spine. She has pain when she is to extend. She has tenderness paralumbar soft tissue and negative straight leg raise bilateral. DTRs are 1+ patella and Achilles equal bilateral. No focal weakness distally. Neurological: Mental Status: She is alert. Procedures ASSESSMENT/PLAN: 1. Left-sided low back pain with left-sided sciatica, unspecified chronicity - ICD9: 724.3, ICD10: M54.42 (primary diagnosis) At this time patient is to go forward with physical therapy. I did prescribe Celebrex and had her stop the Naprosyn. Take the Flexeril as needed. Return here in 4 weeks for recheck. If not improving would order MRI of the lumbar spine. 2. Neck pain on left side - ICD9: 723.1, ICD10: M54.2 Pain seems to improve. Continue Flexeril and I did prescribe her Celebrex. Continue physical therapy. Follow-up in 4 weeks for recheck. No problem-specific Assessment & Plan notes found for this encounter. 33 y/o female patient here today to follow up with low & mid back pain. She is currently doing PT. documented in this encounter [facility] 06-16-2024 Note HNO ID: [id number] Author: SYLVIA BANSAL MA Service: ? Author Type: Call Center Supervisor Type: Progress Notes Filed: 06/16/2024 10:01 Note Text: 33 y/o female patient here today to follow up with low AND mid back pain. She is currently doing PT. [facility] 05-26-2024 Note HNO ID: [id number] Author: SHANEL BRADFORD PT Service: ? Author Type: Physical Therapist Type: Progress Notes Filed: 05/26/2024 14:58 Note Text: Episode Visit Count: 1 Therapist That Will Accept/Oversee The Plan Of Care: Shanel Bradford Start of Care Date: 05/25/24 Onset Date: 03/18/24 Plan of Care Certification Date: 05/25/24 Next Certification Due Date: 07/25/24 Patient Identified by Name and Date of : Yes REHABILITATION AND SPORTS THERAPY PHYSICAL THERAPY EVALUATION PLAN OF CARE: Assessment: Crystal Machuca presents with chief complaint of LBP, neck pain that interferes with sitting, bending, heavy exertion, physical activities, lifting . The patient presents with impairments in ADL's, overall function, range of motion, strength, stress management, symptom management, and tissue tenderness. PROMIS? (Patient-Reported Outcomes Measurement Information System) scores were reviewed and identified as a rehabilitation concern. Prognosis for therapy is Fair due to: clinical presentation, multiple co- morbidities, chronic nature of impairments, limited support system, occupational demands . The patient will benefit from skilled therapy services to meet the goals established for this plan of care as noted below. Classification Pain Mechanism Classification: Neuropathic Low Back Pain Classification: Symptom Modulation Goals for Episode of Care: established 05/25/24 Independent in home exercises. Patient will decrease pain rating by 2 points to meet minimal clinical important difference for numeric pain rating scale. 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 Sleep through night without pain/symptoms. Maintain proper sitting posture throughout session Patient will increase strength of trunk/core to 4+/5 to allow for improve ability to complete ADLs. Restore pain free cervical ROM to WNL to allow for decreased pain and improved functional mobility tolerance. Drive with no aggravation of pain/symptoms. Sleep throughout the night without pain/symptoms. Time Frame for Goals and Treatment : 07/26/24 Planned Interventions, Frequency, and Duration: Current Frequency: 1x every other week Duration: 8 weeks Total Number of Visits Planned: 4 Planned Treatment Interventions: Therapeutic exercise (71112), Neuromuscular re-education (76523), Manual therapy (42694), Therapeutic activities (36707), Self-fdc management (88280), Patient/Family/Caregiver Education, Body Mechanics Training PLAN FOR NEXT VISIT: Assess carry over of HEP, may work body mechanics to decrease pain/symptoms Patient demonstrates good understanding of plan of care and treatment. The above goals and plan of care were discussed and agreed upon by patient/family. SUBJECTIVE: LBP, neck pain, and thoracic spine pain for years but worsening onset in the last 6 months or so. Patient notes that bending bothers her back the most. She has a 10 month old at home and the back pain significantly worsened following to the point it is at now. She tries heat, cold, soaking in tub, postural adjustments, and changing positions, but nothing helps. It makes her job harder, but she pushes through anyways. 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 Neck pain with LUE radicular symptoms ~ 3 months ago. [place] like it started like a "kink" in the neck and then progress to the radicular symptoms. Sitting for too long causes the pain to shoot worse down the arm. Functional Limitations: sitting, bending, heavy exertion, physical activities, lifting Intake Information: Prescription present Pain: Pain Pain Level: 8 Pain Location: Low Back/Lumbar Spine- Midline Description: Burning Frequency: Continuous PROMIS Scales 05/24/2024 05/18/2024 Higher is Better Phys Func - T Score 35 (moderate dysfunction) Phys Func - Percentile 7 Self-Eff Symptom - T Score 37 (Low) Self-Eff Symptom - Percentile 10 05/18/2024 Lower is Better Pain Interference - T Score 63 (moderate) Pain Interference - Percentile 10 T-scores: mean of general population = 50. 5 points is clinically meaningfully difference Percentiles provide an indication of how the patient's score ranks in relation to the general population. Higher percentile rankings indicate better function/quality of life. 50th percentile is the average of the general population and indicates half of respondents had a worse score. OBJECTIVE MEASURES WITH LEVEL OF FUNCTION: Lumbar Spine AROM Lumbar Flexion: Normal Lumbar Extension: End range pain Lumbar R Side-Bend: Normal Lumbar L Side-Bend: Normal Lumbar R Rotation: Normal Lumbar L Rotation: Normal LE Strength Trunk Strength: 3/5 R LE Strength: 5/5 L LE Strength: 5/5 Special Tests - Hip and Spine Hip and Spine Special Tests: SLR Test SLR Test: Right Positive, Left Positive Education: Education Learning/educ (more content not included)... [facility] 05-26-2024 History of Present illness Narrative Images from the original note were not included. Episode Visit Count: 1 Therapist That Will Accept/Oversee The Plan Of Care: Shanel Bradford Start of Care Date: 05/25/24 Onset Date: 03/18/24 Plan of Care Certification Date: 05/25/24 Next Certification Due Date: 07/25/24 Patient Identified by Name and Date of : Yes REHABILITATION AND SPORTS THERAPY PHYSICAL THERAPY EVALUATION PLAN OF CARE: Assessment: Crystal Machuca presents with chief complaint of LBP, neck pain that interferes with sitting, bending, heavy exertion, physical activities, lifting . The patient presents with impairments in ADL's, overall function, range of motion, strength, stress management, symptom management, and tissue tenderness. PROMIS (Patient-Reported Outcomes Measurement Information System) scores were reviewed and identified as a rehabilitation concern. Prognosis for therapy is Fair due to: clinical presentation, multiple co- morbidities, chronic nature of impairments, limited support system, occupational demands . The patient will benefit from skilled therapy services to meet the goals established for this plan of care as noted below. Classification Pain Mechanism Classification: Neuropathic Low Back Pain Classification: Symptom Modulation Goals for Episode of Care: established 05/25/24 Independent in home exercises. Patient will decrease pain rating by 2 points to meet minimal clinical important difference for numeric pain rating scale. 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 Sleep through night without pain/symptoms. Maintain proper sitting posture throughout session Patient will increase strength of trunk/core to 4+/5 to allow for improve ability to complete ADLs. Restore pain free cervical ROM to WNL to allow for decreased pain and improved functional mobility tolerance. Drive with no aggravation of pain/symptoms. Sleep throughout the night without pain/symptoms. Time Frame for Goals and Treatment : 07/26/24 Planned Interventions, Frequency, and Duration: Current Frequency: 1x every other week Duration: 8 weeks Total Number of Visits Planned: 4 Planned Treatment Interventions: Therapeutic exercise (12002), Neuromuscular re-education (05547), Manual therapy (17965), Therapeutic activities (68188), Self-fdc management (15933), Patient/Family/Caregiver Education, Body Mechanics Training PLAN FOR NEXT VISIT: Assess carry over of HEP, may work body mechanics to decrease pain/symptoms Patient demonstrates good understanding of plan of care and treatment. The above goals and plan of care were discussed and agreed upon by patient/family. SUBJECTIVE: LBP, neck pain, and thoracic spine pain for years but worsening onset in the last 6 months or so. Patient notes that bending bothers her back the most. She has a 10 month old at home and the back pain significantly worsened following to the point it is at now. She tries heat, cold, soaking in tub, postural adjustments, and changing positions, but nothing helps. It makes her job harder, but she pushes through anyways. 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 Neck pain with LUE radicular symptoms ~ 3 months ago. [place] like it started like a "kink" in the neck and then progress to the radicular symptoms. Sitting for too long causes the pain to shoot worse down the arm. Functional Limitations: sitting, bending, heavy exertion, physical activities, lifting Intake Information: Prescription present Pain: Pain Pain Level: 8 Pain Location: Low Back/Lumbar Spine- Midline Description: Burning Frequency: Continuous PROMIS Scales 05/24/2024 05/18/2024 Higher is Better Phys Func - T Score 35 (moderate dysfunction) Phys Func - Percentile 7 Self-Eff Symptom - T Score 37 (Low) Self-Eff Symptom - Percentile 10 05/18/2024 Lower is Better Pain Interference - T Score 63 (moderate) Pain Interference - Percentile 10 T-scores: mean of general population = 50. 5 points is clinically meaningfully difference Percentiles provide an indication of how the patient's score ranks in relation to the general population. Higher percentile rankings indicate better function/quality of life. 50th percentile is the average of the general population and indicates half of respondents had a worse score. OBJECTIVE MEASURES WITH LEVEL OF FUNCTION: Lumbar Spine AROM Lumbar Flexion: Normal Lumbar Extension: End range pain Lumbar R Side-Bend: Normal Lumbar L Side-Bend: Normal Lumbar R Rotation: Normal Lumbar L Rotation: Normal LE Strength Trunk Strength: 3/5 R LE Strength: 5/5 L LE Strength: 5/5 Special Tests - Hip and Spine Hip and Spine Special Tests: SLR Test SLR Test: Right Positive, Left Positive Education: Education Learning/educational needs: Home exercise program, Plan of Care, Changes in Plan of Care, Posture, Body Mechanics TREATMENT: PT Treatment Interventions: Therapeutic Exercise, Manual Therapy, Self-Long-Term Management Evaluation Therapeutic Exercise: 1: *Cervical retractions 3x10 2: *TA bracing in hooklying 3x10, 3 sec holds 3: *TA bracing plus alt marching 3x10/side 4: *Bird dogs 3x10/side Skilled Intervention: Patient was educated in proper exercise technique and purpose for exercises. Skilled judgment was used in selection of appropriate interventions. Provided written instruction for home exercise program to facilitate proper performance and compliance. Correct performance of therapeutic exercises was facilitated with verbal, visual, and tactile cuing. Manual Therapy: 1: STM to B cervical paraspinals and R upper trap with push to tolerance 2: Manual cervical traction x10 min Skilled Intervention: Manual skills to improve joint mobility, ROM, and decrease pain. Utilized anatomy knowledge of the therapist, and assessment of patient's response to intervention. Self-Long-Term Management: 1: Discussed posture, body mechanics to decrease symptoms and prevent overstressing irritable tissue. In POC discussion took into account patient's busy schedule and lack or support Skilled Intervention: Skilled judgment in the selection of proper modification for activity of daily living/home management based on clinical presentation, deficits, and needs. Reviewed patient specific diagnosis in relation to activities of daily living/home management. Activity progression based on professional judgement. Billing * Evaluation Moderate Complexity: 1 Unit Therapeutic Exercise Treatment Minutes: 15 Manual TherapyTreatment Minutes: 15 Self-Care/Home Management Treatment Minutes: 10 Skilled Treatment Time Minutes (timed and untimed codes): 55 Total Session Time (minutes): 55 Session Start Time : 1135 Session Stop Time : 1230 Shanel Bradford PT Program_ID:[id number] Access Code: [email or web address] URL: [email or web address] Date: 05-25-2024 Prepared By: Shanel Bradford Program Notes Exercises - Seated Passive Cervical Retraction - 1 x daily - 7 x weekly - 3 sets - 10 reps - Supine Transversus Abdominis Bracing - Hands on Ground - 1 x daily - 7 x weekly - 3 sets - 10 reps - Supine May - 1 x daily - 7 x weekly - 3 sets - 10 reps - Quadruped Pelvic Floor Contraction with Opposite Arm and Leg Lift - 1 x daily - 7 x weekly - 3 sets - 10 reps documented in this encounter [facility] 05-19-2024 Telephone encounter Note Items addressed in this encounter: [employer] Encounter referral info given via [employer] Able to close encounter. Sawyer Day MA May 19, 2024 1:46 PM 1:46 PM [facility] 05-19-2024 Miscellaneous Notes Items addressed in this encounter: MyChart Encounter referral info given via [employer] [facility]ble to close encounter. Sawyer Day MA May 19, 2024 1:46 PM 1:46 PM documented in this encounter [facility] 05-19-2024 Telephone encounter Note Items addressed in this encounter: Fax/Forms Gastro referral faxed to [facility] Faxed via [employer], fax confirmation received Able to close encounter. Sawyer Day MA May 19, 2024 1:42 PM 1:42 PM [facility] 05-19-2024 Miscellaneous Notes Items addressed in this encounter: Fax/Forms Gastro referral faxed to [facility] Faxed via [employer], fax confirmation received Able to close encounter. Sawyer Day MA May 19, 2024 1:42 PM 1:42 PM documented in this encounter [facility] 05-14-2024 Telephone encounter Note Work slip [facility] [facility] 05-14-2024 Miscellaneous Notes Work slip documented in this encounter [facility] 05-14-2024 Note HNO ID: [id number] Author: JUDIE HOLLIDAY MD Service: ? Author Type: Physician Type: Progress Notes Filed: 05/14/2024 11:42 Note Text: Subjective Crystal Machuca is a 33 year old female. Patient is here for follow-up and history and physical. Her lab work showed her iron within normal limits but at the lower end at 60. Lipid panel was unremarkable except her HDL was 34. Vitamin D was 30.4. Patient is doing fairly well except she states she has persistent pain and swelling. States this has been an ongoing issue and cannot give me an exact timeframe. No injury to the hands. She does not drink enough water from patient's description and she may be consuming months of sodium with her diet. She states that her fingers are tight when she goes to squeeze them. Patient states she has a history of colitis and was seeing a health promotion coordinator for this and persistent nausea. Has not seen them in 2 years. 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 She states she has an eye doctor and a dentist as well. Patient would like a flu shot today. Her review of systems are fairly unremarkable except for those noted. She is seeing Ortho for her back and is going to be scheduled for an MRI. Review of Systems Constitutional: Negative for activity change, appetite change, chills, diaphoresis, fatigue, fever and unexpected weight change. HENT: Negative for congestion, dental problem, drooling, ear discharge, ear pain, facial swelling, hearing loss, mouth sores, nosebleeds, postnasal drip, rhinorrhea, sinus pressure, sinus pain, sneezing, sore throat, tinnitus, trouble swallowing and voice change. Eyes: Negative for photophobia, pain, discharge, redness, itching and visual disturbance. Respiratory: Negative for apnea, cough, choking, chest tightness, shortness of breath, wheezing and stridor. Cardiovascular: Negative for chest pain, palpitations and leg swelling. Gastrointestinal: Negative for abdominal distention, abdominal pain, anal bleeding, blood in stool, constipation, diarrhea, nausea, rectal pain and vomiting. Endocrine: Negative for cold intolerance, heat intolerance, polydipsia, polyphagia and polyuria. Genitourinary: Negative for decreased urine volume, difficulty urinating, dyspareunia, dysuria, enuresis, flank pain, frequency, genital sores, hematuria, menstrual problem, pelvic pain, urgency, vaginal bleeding, vaginal discharge and vaginal pain. Musculoskeletal: Negative for arthralgias, back pain, gait problem, joint swelling, myalgias, neck pain and neck stiffness. Skin: Negative for color change, pallor, rash and wound. Allergic/Immunologic: Negative for environmental allergies, food allergies and immunocompromised state. Neurological: Negative for dizziness, tremors, seizures, syncope, facial asymmetry, speech difficulty, weakness, light-headedness, numbness and headaches. Hematological: Negative for adenopathy. Does not bruise/bleed easily. Psychiatric/Behavioral: Negative for agitation, behavioral problems, confusion, decreased concentration, dysphoric mood, hallucinations, self-injury, sleep disturbance and suicidal ideas. The patient is not nervous/anxious and is not hyperactive. Objective BP 118/79 (BP Site: Right Arm, BP Position: Sitting, BP Cuff Size: Large Adult) Pulse 66 Temp 36.5 ?C (97.7 ?F) (Temporal) Resp 16 Ht 165.1 cm (5' 5") Wt 97.3 kg (214 lb 6.4 oz) LMP 11/03/2023 (Exact Date) SpO2 99% BMI 35.68 kg/m? Physical Exam Vitals reviewed. Constitutional: General: She is not in acute distress. Appearance: Normal appearance. She is not ill-appearing, toxic-appearing or diaphoretic. HENT: Head: Normocephalic and atraumatic. Right Ear: Tympanic membrane, ear canal and external ear normal. There is no impacted cerumen. Left Ear: Tympanic membrane, ear canal and external ear normal. There is no impacted cerumen. Nose: Nose normal. No congestion or rhinorrhea. Mouth/Throat: Mouth: Mucous membranes are moist. Pharynx: Oropharynx is clear. No oropharyngeal exudate or posterior oropharyngeal erythema. Eyes: General: No scleral icterus. Right eye: No discharge. Left eye: No discharge. Extraocular Movements: Extraocular movements intact. Conjunctiva/sclera: Conjunctivae normal. Pupils: Pupils are equal, round, and reactive to light. Neck: Vascular: No carotid bruit. Cardiovascular: Rate and Rhythm: Normal rate and regular rhythm. Pulses: Normal pulses. Heart sounds: No murmur heard. No gallop. Pulmonary: Effort: Pulmonary effort is normal. No respiratory distress. Breath sounds: Normal breath sounds. No stridor. No wheezing, rhonchi or rales. Chest: Chest wall: No tenderness. Abdominal: General: Abdomen is flat. Bowel sounds are normal. There is no distension. Palpations: Abdomen is soft. There is no mass. Tenderness: There is no abd (more content not included)... [facility] 05-14-2024 History of Present illness Narrative Subjective Crystal Machuca is a 33 year old female. Patient is here for follow-up and history and physical. Her lab work showed her iron within normal limits but at the lower end at 60. Lipid panel was unremarkable except her HDL was 34. Vitamin D was 30.4. Patient is doing fairly well except she states she has persistent pain and swelling. States this has been an ongoing issue and cannot give me an exact timeframe. No injury to the hands. She does not drink enough water from patient's description and she may be consuming months of sodium with her diet. She states that her fingers are tight when she goes to squeeze them. Patient states she has a history of colitis and was seeing a health promotion coordinator for this and persistent nausea. Has not seen them in 2 years. 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 She states she has an eye doctor and a dentist as well. Patient would like a flu shot today. Her review of systems are fairly unremarkable except for those noted. She is seeing Ortho for her back and is going to be scheduled for an MRI. Review of Systems Constitutional: Negative for activity change, appetite change, chills, diaphoresis, fatigue, fever and unexpected weight change. HENT: Negative for congestion, dental problem, drooling, ear discharge, ear pain, facial swelling, hearing loss, mouth sores, nosebleeds, postnasal drip, rhinorrhea, sinus pressure, sinus pain, sneezing, sore throat, tinnitus, trouble swallowing and voice change. Eyes: Negative for photophobia, pain, discharge, redness, itching and visual disturbance. Respiratory: Negative for apnea, cough, choking, chest tightness, shortness of breath, wheezing and stridor. Cardiovascular: Negative for chest pain, palpitations and leg swelling. Gastrointestinal: Negative for abdominal distention, abdominal pain, anal bleeding, blood in stool, constipation, diarrhea, nausea, rectal pain and vomiting. Endocrine: Negative for cold intolerance, heat intolerance, polydipsia, polyphagia and polyuria. Genitourinary: Negative for decreased urine volume, difficulty urinating, dyspareunia, dysuria, enuresis, flank pain, frequency, genital sores, hematuria, menstrual problem, pelvic pain, urgency, vaginal bleeding, vaginal discharge and vaginal pain. Musculoskeletal: Negative for arthralgias, back pain, gait problem, joint swelling, myalgias, neck pain and neck stiffness. Skin: Negative for color change, pallor, rash and wound. Allergic/Immunologic: Negative for environmental allergies, food allergies and immunocompromised state. Neurological: Negative for dizziness, tremors, seizures, syncope, facial asymmetry, speech difficulty, weakness, light-headedness, numbness and headaches. Hematological: Negative for adenopathy. Does not bruise/bleed easily. Psychiatric/Behavioral: Negative for agitation, behavioral problems, confusion, decreased concentration, dysphoric mood, hallucinations, self-injury, sleep disturbance and suicidal ideas. The patient is not nervous/anxious and is not hyperactive. Objective BP 118/79 (BP Site: Right Arm, BP Position: Sitting, BP Cuff Size: Large Adult) Pulse 66 Temp 36.5 C (97.7 F) (Temporal) Resp 16 Ht 165.1 cm (5' 5") Wt 97.3 kg (214 lb 6.4 oz) LMP 11/03/2023 (Exact Date) SpO2 99% BMI 35.68 kg/m Physical Exam Vitals reviewed. Constitutional: General: She is not in acute distress. Appearance: Normal appearance. She is not ill-appearing, toxic-appearing or diaphoretic. HENT: Head: Normocephalic and atraumatic. Right Ear: Tympanic membrane, ear canal and external ear normal. There is no impacted cerumen. Left Ear: Tympanic membrane, ear canal and external ear normal. There is no impacted cerumen. Nose: Nose normal. No congestion or rhinorrhea. Mouth/Throat: Mouth: Mucous membranes are moist. Pharynx: Oropharynx is clear. No oropharyngeal exudate or posterior oropharyngeal erythema. Eyes: General: No scleral icterus. Right eye: No discharge. Left eye: No discharge. Extraocular Movements: Extraocular movements intact. Conjunctiva/sclera: Conjunctivae normal. Pupils: Pupils are equal, round, and reactive to light. Neck: Vascular: No carotid bruit. Cardiovascular: Rate and Rhythm: Normal rate and regular rhythm. Pulses: Normal pulses. Heart sounds: No murmur heard. No gallop. Pulmonary: Effort: Pulmonary effort is normal. No respiratory distress. Breath sounds: Normal breath sounds. No stridor. No wheezing, rhonchi or rales. Chest: Chest wall: No tenderness. Abdominal: General: Abdomen is flat. Bowel sounds are normal. There is no distension. Palpations: Abdomen is soft. There is no mass. Tenderness: There is no abdominal tenderness. There is no right CVA tenderness, left CVA tenderness, guarding or rebound. Hernia: No hernia is present. Musculoskeletal: General: No swelling, tenderness, deformity or signs of injury. Normal range of motion. Cervical back: Normal range of motion and neck supple. No rigidity or tenderness. Right lower leg: No edema. Left lower leg: No edema. Lymphadenopathy: Cervical: No cervical adenopathy. Skin: General: Skin is warm and dry. Coloration: Skin is not jaundiced or pale. Findings: No bruising, erythema, lesion or rash. Neurological: General: No focal deficit present. Mental Status: She is alert and oriented to person, place, and time. Mental status is at baseline. Cranial Nerves: No cranial nerve deficit. Sensory: No sensory deficit. Motor: No weakness. Coordination: Coordination normal. Gait: Gait normal. Deep Tendon Reflexes: Reflexes normal. Psychiatric: Mood and Affect: Mood normal. Behavior: Behavior normal. Thought Content: Thought content normal. Judgment: Judgment normal. Medications were reviewed and verified. Assessment and Plan (Z00.00) Wellness examination (primary encounter diagnosis) Comment: History and physical completed (Z13.31) Screening for depression Comment: Patient is seeing psychiatry Plan: DEPRESSION SCREENING (Z13.39) Encounter for screening examination for other mental health and behavioral disorders Comment: Patient is seeing psychiatry Plan: ANXIETY SCREENING (D50.8) Iron deficiency anemia secondary to inadequate dietary iron intake Comment: We will start the patient on ferrous sulfate 325 mg daily and recheck in 6 months and 1 year Plan: ferrous sulfate 325 mg (65 mg iron) tablet, FERRITIN, IRON AND TIBC, IRON AND TIBC, FERRITIN (M79.89) Hand swelling Comment: We will obtain an ALVARADO Plan: ALVARADO BLOOD (E78.2) Mixed hyperlipidemia Comment: Check lipid panels in 6 months and 1 year Plan: LIPID PANEL BASIC, LIPID PANEL BASIC (M54.9) Upper back pain Comment: Patient is seeing Ortho (K52.9) Colitis Comment: Patient will schedule with her previous health promotion coordinator. Will place a referral in case it is needed Plan: CONSULT TO GASTROENTEROLOGY (M54.42) Acute left-sided low back pain with left-sided sciatica Comment: Ortho is managing (E55.9) Vitamin D deficiency Comment: Start vitamin D3 2000 IUs daily and recheck in 1 year Plan: Cholecalciferol, Vitamin D3, (VITAMIN D-3) 50 mcg (2,000 unit) cap, VITAMIN D 25 HYDROXY (Z23) Encounter for immunization Comment: Flu shot will be given Plan: INFLUENZA VACCINE, AGE 6MO-64YR, TRIVALENT (AFLURIA, FLULAVAL, FLUVIRIN, FLUZONE) (E66.812) Obesity, Class II, BMI 35-39.9 Comment: Work on dietary intake and increasing activity level Follow-up as needed after studies or 1 year for annual exam. Judie Holliday MD documented in this encounter [facility] 05-01-2024 History of Present illness Narrative Radiology Service Progress Note PATIENT NAME: Crystal Machuca DATE OF SERVICE: May 01, 2024 TIME: 10:54 AM PATIENT IDENTITY VERIFICATION COMPLETED USING TWO (2) IDENTIFIERS: Name and Date of confirmed by patient verbally. FALL SCREENING: Has the patient had 2 falls in the last year or 1 fall with injury or currently using an Ambulatory Assistive Device (Walker, Cane, Wheelchair, Crutches, etc.)? No PATIENT GENDER DATA: Assigned female at . status: : No status: NO. and N/A PATIENT RELEVANT IMPLANT DATA REVIEWED: Not Applicable PATIENT PRESENTS WITH AN IMPLANTABLE OR ATTACHED HIDE PASTER: No RADIOLOGY DEPARTMENT: General X-ray: Exam(s) Completed: Spine X-Ray(s): Cervical AP / LAT / OBL PERIPHERAL IV DATA: Not applicable SIGNED BY: JOSE CARLOS Orr) May 01, 2024 10:54 AM documented in this encounter [facility] 05-01-2024 Note HNO ID: [id number] Author: MIGUEL UNGER RT (R) Service: Radiology Author Type: Technologist Type: Progress Notes Filed: 05/01/2024 10:55 Note Text: Radiology Service Progress Note PATIENT NAME: Crystal Machuca DATE OF SERVICE: May 01, 2024 TIME: 10:54 AM PATIENT IDENTITY VERIFICATION COMPLETED USING TWO (2) IDENTIFIERS: Name and Date of confirmed by patient verbally. FALL SCREENING: Has the patient had 2 falls in the last year or 1 fall with injury or currently using an Ambulatory Assistive Device (Walker, Cane, Wheelchair, Crutches, etc.)? No PATIENT GENDER DATA: Assigned female at . status: : No status: NO. and N/A PATIENT RELEVANT IMPLANT DATA REVIEWED: Not Applicable PATIENT PRESENTS WITH AN IMPLANTABLE OR ATTACHED HIDE PASTER: No RADIOLOGY DEPARTMENT: General X-ray: Exam(s) Completed: Spine X-Ray(s): Cervical AP / LAT / OBL PERIPHERAL IV DATA: Not applicable SIGNED BY: JOSE CARLOS Orr) May 01, 2024 10:54 AM [facility] 05-01-2024 Mikhail Louie MD - 05/01/2024 11:09 AM EST Schedule physical therapy. Take the Naprosyn for pain and inflammation. Use the muscle relaxer as needed. It will make you sleepy. Follow up in 6 weeks. If you are not improving in 6 weeks I would consider getting an MRI of the neck or back. documented in this encounter [facility] 05-01-2024 Note HNO ID: [id number] Author: MIKHAIL MCKEON MD Service: ? Author Type: Physician Type: Progress Notes Filed: 05/01/2024 11:15 Note Text: Crystal Machuca is a 33 year old presenting with New and Pain of the Middle Back and New and Pain of the Lower Back HPI: Pt is here today for lower back pain for several years. No injury. Pain is ache. She does have radicular pain into the left leg. She is also complaining of upper back pain and left-sided neck pain. Pain radiates to left arm with tingling in hand. Review of Systems Constitutional: Negative for fever. Musculoskeletal: Positive for back pain and neck pain. Neurological: Positive for tingling and focal weakness (left upper and lower extremities.). PAST MEDICAL HISTORY Diagnosis Date Anorexia nervosa Asthma Bipolar disorder (HCC) Borderline personality disorder (HCC) Generalized anxiety disorder Headache High risk sexual behavior pt stopped B/C and she is on high risk antipsychotic medication HRP (high risk ) substance abuse/bipolardisorder/personality disorder Menometrorrhagia Nausea and vomiting Opioid dependence (HCC) on suboxone psych/addiction dr delarosa Patient noncompliance Polysubstance dependence (HCC) heroin, thc, opiates , cocaine Polysubstance dependence (HCC) Subjective visual disturbance Tobacco dependence syndrome FAMILY HISTORY Problem Relation Age of Onset No Known Problems Mother No Known Problems Father No Known Problems Brother No Known Problems Maternal Grandmother Cancer Maternal Grandfather Colon, lung, brain, throat cancer other (heart disease [Other]) Maternal Grandfather Breast Cancer Paternal Grandmother Diabetes Paternal Grandfather Hypertension Paternal Grandfather Hyperlipidemia Paternal Grandfather Tobacco Use: High Risk (05/01/2024) Patient History Smoking Tobacco Use: Every Day Smokeless Tobacco Use: Never Passive Exposure: Not on file Alcohol Use: No Current Outpatient Medications Medication Sig FLUoxetine (PROZAC) 20 mg capsule Take 1 capsule by mouth every afternoon. lithium carbonate 600 mg capsule Take 600 mg by mouth at bedtime as needed. levothyroxine (SYNTHROID) 50 mcg tablet Take 50 mcg by mouth every morning. SUBLOCADE 300 mg/1.5 mL injection Inject 300 mg subcutaneously once every month. prazosin HCl (PRAZOSIN ORAL) Take 1 mg by mouth once daily. No current facility-administered medications for this visit. ALLERGIES Allergen Reactions Augmentin [Amoxicil* Hives [place] [Hydrocodone-* Vomiting Penicillin Hives Tramadol Vomiting Pulse 51 Ht 5' 5" (1.65m) Wt 200 lb (90.7kg) SpO2 100% LMP 11/03/2023 BMI 33.28 kg/(m2). Physical Exam Constitutional: General: She is not in acute distress. Musculoskeletal: Comments: Patient has decreased flexion extension of the cervical spine. She has pain with cervical extension. She is tender left paracervical soft tissue and trapezius. She has 2+ triceps and biceps tendon reflexes equal bilateral. No focal weakness in the extremities. She does have some tenderness in the bilateral lumbar region. No midline bony tenderness. She has good flexion but some pain with lumbar extension. Neurovascular is intact distally. She has 5 out of 5 strength in the lower extremities. 1+ patella and Achilles reflexes equal bilateral. There is no focal neurologic deficits. X-rays of the lumbar spine showed some mild chronic changes of I do not see any acute bony abnormalities. X-rays of her thoracic spine showed no obvious bony abnormalities by my read. Her cervical spine showed straightening along with some disc narrowing around the C5-6 and C6-7 discs. Mild degenerative changes. Neurological: Mental Status: She is alert. Procedures ASSESSMENT/PLAN: 1. Upper back pain - ICD9: 724.5, ICD10: M54.9 (primary diagnosis) Patient's pain is more left upper back and cervical area. Thoracic spine films did not show anything significant. - XR THORACIC GENERAL 3V AP/LAT/SWIMMERS 2. Left-sided low back pain with left-sided sciatica, unspecified chronicity - ICD9: 724.3, ICD10: M54.42 Patient does have paralumbar pain with worse on the left side. She has some pain radiating into the left lower extremity. Questionable changes on her x-ray but awaiting official read. At this time I recommend physical therapy. I did prescribe her Naprosyn and Flexeril for symptomatic treatment. Would like to see her back in 6 weeks for recheck. If she is not improving would recommend possible MRI. - XR LUMBAR PARS DEFECT 4V AP/LAT/BOTH OBL - CONSULT TO PHYSICAL THERAPY 3. Acute left-sided low back pain with left-sided sciatica - ICD9: 724.2, 724.3, ICD10: M54.42 4. Neck pain on left side - ICD9: 723.1, ICD10: M54.2 - XR CERV OTHER 4V AP/LAT/OBL - CONSULT TO PHYSICAL THERAPY 5. Cervical radiculopathy - ICD9: 723.4, ICD10: M54.12 Patient has left-sided neck pain radiating into the left upper extremity (more content not included)... [facility] 05-01-2024 History of Present illness Narrative Crystal Machuca is a 33 year old presenting with New and Pain of the Middle Back and New and Pain of the Lower Back HPI: Pt is here today for lower back pain for several years. No injury. Pain is ache. She does have radicular pain into the left leg. She is also complaining of upper back pain and left-sided neck pain. Pain radiates to left arm with tingling in hand. Review of Systems Constitutional: Negative for fever. Musculoskeletal: Positive for back pain and neck pain. Neurological: Positive for tingling and focal weakness (left upper and lower extremities.). PAST MEDICAL HISTORY Diagnosis Date Anorexia nervosa Asthma Bipolar disorder (HCC) Borderline personality disorder (HCC) Generalized anxiety disorder Headache High risk sexual behavior pt stopped B/C and she is on high risk antipsychotic medication HRP (high risk ) substance abuse/bipolardisorder/personality disorder Menometrorrhagia Nausea and vomiting Opioid dependence (HCC) on suboxone psych/addiction dr delarosa Patient noncompliance Polysubstance dependence (HCC) heroin, thc, opiates , cocaine Polysubstance dependence (HCC) Subjective visual disturbance Tobacco dependence syndrome FAMILY HISTORY Problem Relation Age of Onset No Known Problems Mother No Known Problems Father No Known Problems Brother No Known Problems Maternal Grandmother Cancer Maternal Grandfather Colon, lung, brain, throat cancer other (heart disease [Other]) Maternal Grandfather Breast Cancer Paternal Grandmother Diabetes Paternal Grandfather Hypertension Paternal Grandfather Hyperlipidemia Paternal Grandfather Tobacco Use: High Risk (05/01/2024) Patient History Smoking Tobacco Use: Every Day Smokeless Tobacco Use: Never Passive Exposure: Not on file Alcohol Use: No Current Outpatient Medications Medication Sig FLUoxetine (PROZAC) 20 mg capsule Take 1 capsule by mouth every afternoon. lithium carbonate 600 mg capsule Take 600 mg by mouth at bedtime as needed. levothyroxine (SYNTHROID) 50 mcg tablet Take 50 mcg by mouth every morning. SUBLOCADE 300 mg/1.5 mL injection Inject 300 mg subcutaneously once every month. prazosin HCl (PRAZOSIN ORAL) Take 1 mg by mouth once daily. No current facility-administered medications for this visit. ALLERGIES Allergen Reactions Augmentin [Amoxicil* Hives [place] [Hydrocodone-* Vomiting Penicillin Hives Tramadol Vomiting Pulse 51 Ht 5' 5" (1.65m) Wt 200 lb (90.7kg) SpO2 100% LMP 11/03/2023 BMI 33.28 kg/(m^2). Physical Exam Constitutional: General: She is not in acute distress. Musculoskeletal: Comments: Patient has decreased flexion extension of the cervical spine. She has pain with cervical extension. She is tender left paracervical soft tissue and trapezius. She has 2+ triceps and biceps tendon reflexes equal bilateral. No focal weakness in the extremities. She does have some tenderness in the bilateral lumbar region. No midline bony tenderness. She has good flexion but some pain with lumbar extension. Neurovascular is intact distally. She has 5 out of 5 strength in the lower extremities. 1+ patella and Achilles reflexes equal bilateral. There is no focal neurologic deficits. X-rays of the lumbar spine showed some mild chronic changes of I do not see any acute bony abnormalities. X-rays of her thoracic spine showed no obvious bony abnormalities by my read. Her cervical spine showed straightening along with some disc narrowing around the C5-6 and C6-7 discs. Mild degenerative changes. Neurological: Mental Status: She is alert. Procedures ASSESSMENT/PLAN: 1. Upper back pain - ICD9: 724.5, ICD10: M54.9 (primary diagnosis) Patient's pain is more left upper back and cervical area. Thoracic spine films did not show anything significant. - XR THORACIC GENERAL 3V AP/LAT/SWIMMERS 2. Left-sided low back pain with left-sided sciatica, unspecified chronicity - ICD9: 724.3, ICD10: M54.42 Patient does have paralumbar pain with worse on the left side. She has some pain radiating into the left lower extremity. Questionable changes on her x-ray but awaiting official read. At this time I recommend physical therapy. I did prescribe her Naprosyn and Flexeril for symptomatic treatment. Would like to see her back in 6 weeks for recheck. If she is not improving would recommend possible MRI. - XR LUMBAR PARS DEFECT 4V AP/LAT/BOTH OBL - CONSULT TO PHYSICAL THERAPY 3. Acute left-sided low back pain with left-sided sciatica - ICD9: 724.2, 724.3, ICD10: M54.42 4. Neck pain on left side - ICD9: 723.1, ICD10: M54.2 - XR CERV OTHER 4V AP/LAT/OBL - CONSULT TO PHYSICAL THERAPY 5. Cervical radiculopathy - ICD9: 723.4, ICD10: M54.12 Patient has left-sided neck pain radiating into the left upper extremity. At this time she is referred to therapy. I did prescribe the Flexeril and Naprosyn. I like to see her back in 6 weeks for recheck. If not improving would recommend MRI at that time. - CONSULT TO PHYSICAL THERAPY No problem-specific Assessment & Plan notes found for this encounter. 33 y/o female patient here today for mid & low back pain x 2 months. Patient states most of the time her back pain is just uncomfortable. X-ray completed. documented in this encounter [facility] 05-01-2024 Note HNO ID: [id number] Author: SYLVIA BANSAL MA Service: ? Author Type: Call Center Supervisor Type: Progress Notes Filed: 05/01/2024 11:15 Note Text: 33 y/o female patient here today for mid AND low back pain x 2 months. Patient states most of the time her back pain is just uncomfortable. X-ray completed. [facility] 05-01-2024 History of Present illness Narrative Radiology Service Progress Note PATIENT NAME: Crystal Machuca DATE OF SERVICE: May 01, 2024 TIME: 10:28 AM PATIENT IDENTITY VERIFICATION COMPLETED USING TWO (2) IDENTIFIERS: Name and Date of confirmed by patient verbally. FALL SCREENING: Has the patient had 2 falls in the last year or 1 fall with injury or currently using an Ambulatory Assistive Device (Walker, Cane, Wheelchair, Crutches, etc.)? No PATIENT GENDER DATA: Assigned female at . status: : No status: NO. PATIENT RELEVANT IMPLANT DATA REVIEWED: Not Applicable PATIENT PRESENTS WITH AN IMPLANTABLE OR ATTACHED HIDE PASTER: No RADIOLOGY DEPARTMENT: General X-ray: Exam(s) Completed: Spine X-Ray(s): Thoracic and Lumbar AP / LAT / L5-S1 / OBL PERIPHERAL IV DATA: Not applicable SIGNED BY: JOSE CARLOS Orr) May 01, 2024 10:28 AM documented in this encounter [facility] 05-01-2024 Note HNO ID: [id number] Author: MIGUEL UNGER RT (R) Service: Radiology Author Type: Technologist Type: Progress Notes Filed: 05/01/2024 10:28 Note Text: Radiology Service Progress Note PATIENT NAME: Crystal Machuca DATE OF SERVICE: May 01, 2024 TIME: 10:28 AM PATIENT IDENTITY VERIFICATION COMPLETED USING TWO (2) IDENTIFIERS: Name and Date of confirmed by patient verbally. FALL SCREENING: Has the patient had 2 falls in the last year or 1 fall with injury or currently using an Ambulatory Assistive Device (Walker, Cane, Wheelchair, Crutches, etc.)? No PATIENT GENDER DATA: Assigned female at . status: : No status: NO. PATIENT RELEVANT IMPLANT DATA REVIEWED: Not Applicable PATIENT PRESENTS WITH AN IMPLANTABLE OR ATTACHED HIDE PASTER: No RADIOLOGY DEPARTMENT: General X-ray: Exam(s) Completed: Spine X-Ray(s): Thoracic and Lumbar AP / LAT / L5-S1 / OBL PERIPHERAL IV DATA: Not applicable SIGNED BY: RT Kirby(R) May 01, 2024 10:28 AM [facility] 04-14-2024 Note HNO ID: [id number] Author: JUDIE HOLLIDAY MD Service: ? Author Type: Physician Type: Progress Notes Filed: 04/14/2024 11:16 Note Text: Subjective Crystal Machuca is a 33 year old female. Patient is here to become established with a chief complaint of back pain. She states that she has pain at the upper back on the left side/trapezius that radiates to her left arm. She experiences tingling periodically down the left arm. She states is hard to extend her head back as there is tension in her upper back and neck. She also states that the pain radiates down to her left low back and even into her leg. She has not had this evaluated before. She states has been going on for 2 months with no known injury. She states she is currently not working and caring for her 9-month-old. No chest pain or shortness of breath. Remaining review of systems are unremarkable. Patient sees behavioral health for her medications. She states they are managing her thyroid as well Discussed my way of practice with patient concerning compliance, yearly exams, medication refill policy (medications given from appointment to appointment; no refills on emergency line or after hours), no intermittent FMLAs or disability forms, no controlled substances and use of portal. Also informed patient to arrive 15 minutes prior to scheduled appointment so that they may be seen at the time of the appointment. Patient states she understands these points and wishes to confirm professional relationship with none of these being an issue. Review of Systems Constitutional: Negative for appetite change, chills, diaphoresis, fatigue and fever. HENT: Negative for congestion, dental problem, ear pain, hearing loss, mouth sores, postnasal drip, sore throat and trouble swallowing. Eyes: Negative for pain, discharge, redness, itching and visual disturbance. Respiratory: Negative for cough, chest tightness, shortness of breath and wheezing. Cardiovascular: Negative for chest pain, palpitations and leg swelling. Gastrointestinal: Negative for abdominal distention, abdominal pain, blood in stool, constipation, diarrhea, nausea and vomiting. Endocrine: Negative. Genitourinary: Negative for difficulty urinating, dyspareunia, dysuria, flank pain, frequency, hematuria, pelvic pain, urgency, vaginal bleeding, vaginal discharge and vaginal pain. Musculoskeletal: Negative for arthralgias, back pain, gait problem, joint swelling, myalgias and neck pain. Skin: Negative for color change, rash and wound. Neurological: Negative for dizziness, weakness, light-headedness, numbness and headaches. Hematological: Negative. Negative for adenopathy. Does not bruise/bleed easily. Psychiatric/Behavioral: Negative for agitation, confusion, hallucinations, sleep disturbance and suicidal ideas. The patient is not nervous/anxious. Objective BP 122/80 (BP Site: Right Arm, BP Position: Sitting, BP Cuff Size: Large Adult) Pulse 64 Temp 36.4 ?C (97.6 ?F) Resp 16 Ht 165.1 cm (5' 5") Wt 94 kg (207 lb 3.2 oz) LMP 11/03/2023 (Exact Date) SpO2 99% BMI 34.48 kg/m? Physical Exam Vitals reviewed. Constitutional: General: She is not in acute distress. Appearance: Normal appearance. She is not ill-appearing, toxic-appearing or diaphoretic. HENT: Head: Normocephalic and atraumatic. Right Ear: Tympanic membrane, ear canal and external ear normal. There is no impacted cerumen. Left Ear: Tympanic membrane, ear canal and external ear normal. There is no impacted cerumen. Nose: Nose normal. No congestion or rhinorrhea. Mouth/Throat: Mouth: Mucous membranes are moist. Pharynx: Oropharynx is clear. No oropharyngeal exudate or posterior oropharyngeal erythema. Eyes: General: No scleral icterus. Right eye: No discharge. Left eye: No discharge. Extraocular Movements: Extraocular movements intact. Conjunctiva/sclera: Conjunctivae normal. Pupils: Pupils are equal, round, and reactive to light. Neck: Vascular: No carotid bruit. Cardiovascular: Rate and Rhythm: Normal rate and regular rhythm. Pulses: Normal pulses. Heart sounds: No murmur heard. No gallop. Pulmonary: Effort: Pulmonary effort is normal. No respiratory distress. Breath sounds: Normal breath sounds. No stridor. No wheezing, rhonchi or rales. Chest: Chest wall: No tenderness. Abdominal: General: Abdomen is flat. Bowel sounds are normal. There is no distension. Palpations: Abdomen is soft. There is no mass. Tenderness: There is no abdominal tenderness. There is no right CVA tenderness, left CVA tenderness, guarding or rebound. Hernia: No hernia is present. Musculoskeletal: General: No swelling, tenderness, deformity or signs of injury. Normal range of motion. Cervical back: Normal range of motion and neck supple. No rigidity or tenderness. Right lower leg: No edema. Left lower leg: No edema. Lymphadenopathy: Cervical: No cervical adenopath (more content not included)... [facility] 04-14-2024 History of Present illness Narrative Subjective Crystal Machuca is a 33 year old female. Patient is here to become established with a chief complaint of back pain. She states that she has pain at the upper back on the left side/trapezius that radiates to her left arm. She experiences tingling periodically down the left arm. She states is hard to extend her head back as there is tension in her upper back and neck. She also states that the pain radiates down to her left low back and even into her leg. She has not had this evaluated before. She states has been going on for 2 months with no known injury. She states she is currently not working and caring for her 9-month-old. No chest pain or shortness of breath. Remaining review of systems are unremarkable. Patient sees behavioral health for her medications. She states they are managing her thyroid as well Discussed my way of practice with patient concerning compliance, yearly exams, medication refill policy (medications given from appointment to appointment; no refills on emergency line or after hours), no intermittent FMLAs or disability forms, no controlled substances and use of portal. Also informed patient to arrive 15 minutes prior to scheduled appointment so that they may be seen at the time of the appointment. Patient states she understands these points and wishes to confirm professional relationship with none of these being an issue. Review of Systems Constitutional: Negative for appetite change, chills, diaphoresis, fatigue and fever. HENT: Negative for congestion, dental problem, ear pain, hearing loss, mouth sores, postnasal drip, sore throat and trouble swallowing. Eyes: Negative for pain, discharge, redness, itching and visual disturbance. Respiratory: Negative for cough, chest tightness, shortness of breath and wheezing. Cardiovascular: Negative for chest pain, palpitations and leg swelling. Gastrointestinal: Negative for abdominal distention, abdominal pain, blood in stool, constipation, diarrhea, nausea and vomiting. Endocrine: Negative. Genitourinary: Negative for difficulty urinating, dyspareunia, dysuria, flank pain, frequency, hematuria, pelvic pain, urgency, vaginal bleeding, vaginal discharge and vaginal pain. Musculoskeletal: Negative for arthralgias, back pain, gait problem, joint swelling, myalgias and neck pain. Skin: Negative for color change, rash and wound. Neurological: Negative for dizziness, weakness, light-headedness, numbness and headaches. Hematological: Negative. Negative for adenopathy. Does not bruise/bleed easily. Psychiatric/Behavioral: Negative for agitation, confusion, hallucinations, sleep disturbance and suicidal ideas. The patient is not nervous/anxious. Objective BP 122/80 (BP Site: Right Arm, BP Position: Sitting, BP Cuff Size: Large Adult) Pulse 64 Temp 36.4 C (97.6 F) Resp 16 Ht 165.1 cm (5' 5") Wt 94 kg (207 lb 3.2 oz) LMP 11/03/2023 (Exact Date) SpO2 99% BMI 34.48 kg/m Physical Exam Vitals reviewed. Constitutional: General: She is not in acute distress. Appearance: Normal appearance. She is not ill-appearing, toxic-appearing or diaphoretic. HENT: Head: Normocephalic and atraumatic. Right Ear: Tympanic membrane, ear canal and external ear normal. There is no impacted cerumen. Left Ear: Tympanic membrane, ear canal and external ear normal. There is no impacted cerumen. Nose: Nose normal. No congestion or rhinorrhea. Mouth/Throat: Mouth: Mucous membranes are moist. Pharynx: Oropharynx is clear. No oropharyngeal exudate or posterior oropharyngeal erythema. Eyes: General: No scleral icterus. Right eye: No discharge. Left eye: No discharge. Extraocular Movements: Extraocular movements intact. Conjunctiva/sclera: Conjunctivae normal. Pupils: Pupils are equal, round, and reactive to light. Neck: Vascular: No carotid bruit. Cardiovascular: Rate and Rhythm: Normal rate and regular rhythm. Pulses: Normal pulses. Heart sounds: No murmur heard. No gallop. Pulmonary: Effort: Pulmonary effort is normal. No respiratory distress. Breath sounds: Normal breath sounds. No stridor. No wheezing, rhonchi or rales. Chest: Chest wall: No tenderness. Abdominal: General: Abdomen is flat. Bowel sounds are normal. There is no distension. Palpations: Abdomen is soft. There is no mass. Tenderness: There is no abdominal tenderness. There is no right CVA tenderness, left CVA tenderness, guarding or rebound. Hernia: No hernia is present. Musculoskeletal: General: No swelling, tenderness, deformity or signs of injury. Normal range of motion. Cervical back: Normal range of motion and neck supple. No rigidity or tenderness. Right lower leg: No edema. Left lower leg: No edema. Lymphadenopathy: Cervical: No cervical adenopathy. Skin: General: Skin is warm and dry. Coloration: Skin is not jaundiced or pale. Findings: No bruising, erythema, lesion or rash. Neurological: General: No focal deficit present. Mental Status: She is alert and oriented to person, place, and time. Mental status is at baseline. Cranial Nerves: No cranial nerve deficit. Sensory: No sensory deficit. Motor: No weakness. Coordination: Coordination normal. Gait: Gait normal. Deep Tendon Reflexes: Reflexes normal. Psychiatric: Mood and Affect: Mood normal. Behavior: Behavior normal. Thought Content: Thought content normal. Judgment: Judgment normal. Medications were reviewed and verified. Assessment and Plan (M54.9) Upper back pain (primary encounter diagnosis) Comment: Will make referral to Ortho Plan: CONSULT TO ORTHOPAEDICS (M54.42) Acute left-sided low back pain with left-sided sciatica Comment: Ortho referral placed Plan: CONSULT TO ORTHOPAEDICS (Z13.6) Screening for cardiovascular condition Comment: Check CMP and lipid panel Plan: COMPREHENSIVE METABOLIC PANEL, LIPID PANEL BASIC (R73.9) Hyperglycemia Comment: Check hemoglobin A1c Plan: HEMOGLOBIN A1C (D50.8) Iron deficiency anemia secondary to inadequate dietary iron intake Comment: Check iron studies Plan: IRON AND TIBC, FERRITIN, COMPLETE BLOOD COUNT AND DIFFERENTIAL (E55.9) Vitamin D deficiency Comment: Check vitamin D Plan: VITAMIN D 25 HYDROXY (E66.811) Obesity, Class I, BMI 30-34.9 Comment: Address at H&P Follow-up in 4 weeks for reeval and H&P. Judie Holliday MD documented in this encounter [facility] 11-26-2023 History of Present illness Narrative Radiology Service Progress Note PATIENT NAME: Crystal Machuca DATE OF SERVICE: November 26, 2023 TIME: 6:21 PM PATIENT IDENTITY VERIFICATION COMPLETED USING TWO (2) IDENTIFIERS: Name and Date of confirmed by patient verbally. FALL SCREENING: Has the patient had 2 falls in the last year or 1 fall with injury or currently using an Ambulatory Assistive Device (Walker, Cane, Wheelchair, Crutches, etc.)? No PATIENT GENDER DATA: Female. status: : No status: NO. PATIENT RELEVANT IMPLANT DATA REVIEWED: Yes PATIENT PRESENTS WITH AN IMPLANTABLE OR ATTACHED HIDE PASTER: No RADIOLOGY DEPARTMENT: General X-ray: Exam(s) Completed: Chest X-Ray PERIPHERAL IV DATA: Not applicable SIGNED BY: RT Hemal(R) November 26, 2023 6:21 PM documented in this encounter [facility] 11-26-2023 History of Present illness Narrative This note was created using [employer]. Subjective Crystal Machuca is a 33 year old female. HPI 33-year-old female presents for cough, chest congestion, wheezing, shortness of breath for 3 to 4 weeks. Patient states she started getting sick a few weeks ago. She has had cough for about 3 weeks. She states she feels congested in her chest and is coughing up phlegm. She feels like she is wheezing. She does have history of asthma and uses her albuterol inhaler. Patient denies any chest pain. She does report shortness of breath. No fevers. She has had nasal congestion for several weeks as well. Patient's son is also sick with similar symptoms. Patient states that she has tried TheraFlu, Tylenol cold and sinus, Mucinex with minimal improvement in symptoms. No other complaint. Patient is not or breast-feeding PAST MEDICAL HISTORY No date: Anorexia nervosa No date: Asthma No date: Bipolar disorder (HCC) No date: Borderline personality disorder (HCC) No date: Generalized anxiety disorder No date: Headache No date: High risk sexual behavior Comment: pt stopped B/C and she is on high risk antipsychotic medication No date: HRP (high risk ) Comment: substance abuse/bipolardisorder/personality disorder No date: Menometrorrhagia No date: Nausea and vomiting No date: Opioid dependence ([facility]) Comment: on suboxone psych/addiction dr delarosa No date: Patient noncompliance No date: Polysubstance dependence ([facility]) Comment: heroin, thc, opiates , cocaine No date: Polysubstance dependence ([facility]) No date: Subjective visual disturbance No date: Tobacco dependence syndrome PAST SURGICAL HISTORY 02/26/2013: ADENOIDECTOMY HX 07/16/2023: DELIVERY ONLY; Bilateral Comment: bilateral salpingectomy 02/26/2013: TONSILLECTOMY HX ALLERGIES Augmentin [Amoxicillin-Pot Clavulanate], [place] [Hydrocodone-Acetaminophen], Penicillin, and Tramadol MEDICATIONS FLUoxetine (PROZAC) 20 mg capsule Take 1 capsule by mouth every afternoon. lithium carbonate 600 mg capsule Take 600 mg by mouth at bedtime as needed. levothyroxine (SYNTHROID) 50 mcg tablet Take 50 mcg by mouth every morning. SUBLOCADE 300 mg/1.5 mL injection Inject 300 mg subcutaneously once every month. prazosin HCl (PRAZOSIN ORAL) Take 1 mg by mouth once daily. ondansetron orally disintegrating (ZOFRAN ODT) 4 mg disintegrating tablet Take 1 tablet by mouth every 8 hours as needed. (Patient not taking: Reported on 08/27/2023) ferrous sulfate (IRON ORAL) Take by mouth. (Patient not taking: Reported on 08/02/2023) gabapentin (NEURONTIN) 100 mg capsule Take 100 mg by mouth three times a day. (Patient not taking: Reported on 11/26/2023) famotidine (PEPCID) 20 mg tablet Take 1 tablet by mouth two times a day. (Patient not taking: Reported on 08/02/2023) albuterol HFA (PROVENTIL HFA, VENTOLIN HFA) 90 mcg/actuation inhaler Inhale 2 Puffs as instructed every 4 hours as needed for wheezing/shortness of breath. (Patient not taking: Reported on 09/02/2023) 25/iron fum/folic/dha (-1 ORAL) Take by mouth. (Patient not taking: Reported on 09/02/2023) FAMILY HISTORY Problem Relation Age of Onset No Known Problems Mother No Known Problems Father No Known Problems Brother No Known Problems Maternal Grandmother Cancer Maternal Grandfather Colon, lung, brain, throat cancer other (heart disease [Other]) Maternal Grandfather Breast Cancer Paternal Grandmother Diabetes Paternal Grandfather Hypertension Paternal Grandfather Hyperlipidemia Paternal Grandfather Social History Tobacco Use Smoking status: Every Day Current packs/day: 1.00 Types: Cigarettes Smokeless tobacco: Never Vaping Use Vaping status: Some Days Substance Use Topics Alcohol use: No Drug use: Yes Types: Marijuana, Narcotics Comment: mjn during ; but not recently; Hx opiod use - attends AA Review of Systems Constitutional: Negative for chills and fever. HENT: Positive for congestion and sinus pressure. Negative for ear pain and sore throat. Respiratory: Positive for cough, shortness of breath and wheezing. Cardiovascular: Negative for chest pain. Gastrointestinal: Negative for diarrhea and vomiting. Objective BP 133/84 Pulse 87 Temp 36.2 C (97.1 F) Resp 20 Wt 93 kg (205 lb 0.4 oz) LMP 11/03/2023 (Exact Date) SpO2 98% No BMI 34.12 kg/m Physical Exam Vitals and nursing note reviewed. Constitutional: General: She is not in acute distress. Appearance: Normal appearance. She is not toxic-appearing. HENT: Right Ear: Tympanic membrane and ear canal normal. Left Ear: Tympanic membrane and ear canal normal. Nose: Congestion present. Mouth/Throat: Mouth: Mucous membranes are moist. Eyes: Conjunctiva/sclera: Conjunctivae normal. Cardiovascular: Rate and Rhythm: Normal rate and regular rhythm. Pulmonary: Effort: Pulmonary effort is normal. Breath sounds: Wheezing and rhonchi present. Skin: General: Skin is warm and dry. Neurological: Mental Status: She is alert. Assessment and Plan ASSESSMENT/PLAN: 1. Sinobronchitis - ICD9: 473.9, 490, ICD10: J32.9, J40 (primary diagnosis) - Will begin treatment with Doxycycline -Rx for prednisone - Supportive care with plenty of fluids, rest, and analgesia prn. 2. Subacute cough - ICD9: 786.2, ICD10: R05.2 - XR CHEST 2V FRONTAL/LAT-no acute abnormality Diagnosis and treatment plan were discussed and questions were answered to the patient's satisfaction. Pt acknowledged understanding of concepts and follow up plan. Specific signs and symptoms that would indicate the need for higher level of care were discussed in detail warranting prompt ER evaluation. FLORY Shipman documented in this encounter [facility] 09-02-2023 History of Present illness Narrative VISIT Crystal Machuca is a 33 year old year old here for visit. Delivery Summary: C/S by DANIEL on 07/16/2023 - non reassuring heart tones Male - Leonardo 7 lb 15 oz Bilateral salpingectomy ROS/ Recovery: Feeding: Bottle feeding problems: None Menses since delivery: None Menstrual pattern prior to : Regular periods [place] since delivery: Not resumed Depression: denies symptoms of depression. OB Depression and Anxiety Screening- This Encounter (since 09/01/2023) Over the past 2 weeks have you felt down, depressed, or hopeless? Negative Over the past two weeks, have you felt little interest or pleasure in doing things? Negative Feeling nervous, anxious or on edge 0-Not at all Not being able to stop or control worrying 0-Not al all Anxiety Pre-Screening Total (If >/= 3 additional questions will be reviewed) 0 Emotional support: Yes Bowel symptoms: Negative for abdominal discomfort, blood in stools or black stools Abdomen: She reports no incisional redness, tenderness, erythema Bladder symptoms: No dysuria, gross hematuria, urinary frequency, urinary urgency, or incontinence Other issues: None Last Pap: 2022 normal HPV: negative PAST MEDICAL HISTORY Diagnosis Date Anorexia nervosa Asthma Bipolar disorder (HCC) Borderline personality disorder (HCC) Generalized anxiety disorder Headache High risk sexual behavior pt stopped B/C and she is on high risk antipsychotic medication HRP (high risk ) substance abuse/bipolardisorder/personality disorder Menometrorrhagia Nausea and vomiting Opioid dependence (HCC) on suboxone psych/addiction dr delarosa Patient noncompliance Polysubstance dependence (HCC) heroin, thc, opiates , cocaine Polysubstance dependence (HCC) Subjective visual disturbance Tobacco dependence syndrome PAST SURGICAL HISTORY Procedure Laterality Date ADENOIDECTOMY HX 02/26/2013 DELIVERY ONLY Bilateral 07/16/2023 bilateral salpingectomy TONSILLECTOMY HX 02/26/2013 FAMILY HISTORY Problem Relation Age of Onset No Known Problems Mother No Known Problems Father No Known Problems Brother No Known Problems Maternal Grandmother Cancer Maternal Grandfather Colon, lung, brain, throat cancer other (heart disease [Other]) Maternal Grandfather Breast Cancer Paternal Grandmother Diabetes Paternal Grandfather Hypertension Paternal Grandfather Hyperlipidemia Paternal Grandfather Social History Tobacco Use Smoking status: Every Day Packs/day: 1 Types: Cigarettes Smokeless tobacco: Never Vaping Use Vaping Use: Some days Substance Use Topics Alcohol use: No Drug use: Yes Types: Marijuana, Narcotics Comment: mjn during ; but not recently; Hx opiod use - attends AA PHYSICAL EXAMINATION: BP 116/78 Wt 221 lb (100.2kg) LMP 10/15/2022 GENERAL: pleasant, female in no apparent distress HEENT: Normocephalic, atraumatic, mucus membranes moist, and no lesions NECK: Supple, full range of motion, no adenopathy, and thyroid normal DERMATOLOGY: Normal, without lesions, non-icteric, and non-hirsute BREAST: soft, non-tender, symmetric, no dominant mass, normal nipple-areolar complex, no lymphadenopathy, and no nipple discharge CHEST: Clear to auscultation, Normal inspiratory effort, Regular rate and rhythm, and No murmurs, clicks, rubs or gallops ABDOMEN: soft, non-tender, and no masses. INCISION: No incisional redness, swelling, or drainage PELVIC: external genitalia normal, normal Bartholin's glands, urethra, [place]'s glands, no vulvar lesions, no cervical lesions, good vaginal support, physiologic discharge present, normal appearing perineal body and perianal region BIMANUAL: uterus normal size, shape and consistency, no adnexal masses, and non-tender NEURO: alert and oriented x3,exam grossly non-focal EXTREMITIES: normal ASSESSMENT AND PLAN: 33 year old status post CS with normal course. Contraception plan: tubal ligation Follow up: RTC for annual exams and PRN Ema Abarca APRN.CNM documented in this encounter [facility] 08-27-2023 Telephone encounter Note Patient identified by name and date of . I advised patient of US results. Continue antibiotic as prescribed. Follow up with PCP if not improving. Patient verbalized understanding. Yoselyn Chandra APRN.CNP [facility] 08-27-2023 Miscellaneous Notes Patient identified by name and date of . I advised patient of US results. Continue antibiotic as prescribed. Follow up with PCP if not improving. Patient verbalized understanding. Yoselyn Chandra APRN.CNP documented in this encounter [facility] 08-27-2023 Instructions Yoselyn Chandra APRN.CNP - 08/27/2023 9:54 AM EDT ASSESSMENT/PLAN: 1. Localized swelling of left lower leg - ICD9: 782.2, ICD10: R22.42 - suspect phlebitis. - US LEG VEIN DVT UNL VAS LAB- to be done at 1: 00 today. - will call with result and recommendations. - CLINDAMYCIN HCL 300 MG CAPSULE - warm compresses to area 2-3 times daily. - Follow-up with your PCP in 3-5 days if symptoms have not improved or sooner if symptoms worsen - Discussed red flags and need for immediate medical evaluation if any occur. - Discussed supportive care treatment with fluids, rest and analgesia. - Discussed expected course of illness Yoselyn Chandra APRN.CNP documented in this encounter [facility] 08-27-2023 History of Present illness Narrative Images from the original note were not included. Subjective Leg Pain Pertinent negatives include no fever or itching. Crystal Machuca is a 33 year old female who presents with a localized area of swelling on her left lower leg. This has been present for 2 weeks. It is tender to touch and warm to touch. She denies injury to the area. She had done July 15. She has not had any recent travel. She is a smoker. She does not have a personal history of cancer. No history of blood clots. She has not taken any medication for this at home. Review of Systems Constitutional: Negative for chills and fever. Respiratory: Negative. Cardiovascular: Negative. Musculoskeletal: Negative for falls and joint pain. See HPI Skin: Negative for itching and rash. BP 110/70 Pulse 76 Temp 36.3 C (97.3 F) Resp 16 Wt 99.6 kg (219 lb 9.3 oz) LMP 10/15/2022 (Exact Date) SpO2 97% BMI 36.54 kg/m PAST MEDICAL HISTORY Diagnosis Date Anorexia nervosa Asthma Bipolar disorder (HCC) Borderline personality disorder (HCC) Generalized anxiety disorder Headache High risk sexual behavior pt stopped B/C and she is on high risk antipsychotic medication HRP (high risk ) substance abuse/bipolardisorder/personality disorder Menometrorrhagia Nausea and vomiting Opioid dependence (HCC) on suboxone psych/addiction dr delarosa Patient noncompliance Polysubstance dependence (HCC) heroin, thc, opiates , cocaine Polysubstance dependence (HCC) Subjective visual disturbance Tobacco dependence syndrome PAST SURGICAL HISTORY Procedure Laterality Date ADENOIDECTOMY HX 02/26/2013 DELIVERY ONLY Bilateral 07/16/2023 bilateral salpingectomy TONSILLECTOMY HX 02/26/2013 ALLERGIES Augmentin [Amoxicillin-Pot Clavulanate], Monroe [Hydrocodone-Acetaminophen], Penicillin, and Tramadol MEDICATIONS OLANZapine-FLUoxetine (SYMBYAX) 6-25 mg per capsule Take 1 capsule by mouth once daily. albuterol HFA (PROVENTIL HFA, VENTOLIN HFA) 90 mcg/actuation inhaler Inhale 2 Puffs as instructed every 4 hours as needed for wheezing/shortness of breath. buprenorphine SL (SUBUTEX) 8 mg subl Dissolve under the tongue once daily. 25/iron fum/folic/dha (-1 ORAL) Take by mouth. prazosin HCl (PRAZOSIN ORAL) Take 1 mg by mouth once daily. clindamycin (CLEOCIN) 300 mg capsule Take 1 capsule by mouth two times a day for 10 days. BRIXADI 96 mg/0.27 mL syringe Inject 96 mg subcutaneously once every month. (Patient not taking: Reported on 08/27/2023) ondansetron orally disintegrating (ZOFRAN ODT) 4 mg disintegrating tablet Take 1 tablet by mouth every 8 hours as needed. (Patient not taking: Reported on 08/27/2023) ferrous sulfate (IRON ORAL) Take by mouth. (Patient not taking: Reported on 08/02/2023) gabapentin (NEURONTIN) 100 mg capsule Take 100 mg by mouth three times a day. famotidine (PEPCID) 20 mg tablet Take 1 tablet by mouth two times a day. (Patient not taking: Reported on 08/02/2023) FAMILY HISTORY Problem Relation Age of Onset No Known Problems Mother No Known Problems Father No Known Problems Brother No Known Problems Maternal Grandmother Cancer Maternal Grandfather Colon, lung, brain, throat cancer other (heart disease [Other]) Maternal Grandfather Breast Cancer Paternal Grandmother Diabetes Paternal Grandfather Hypertension Paternal Grandfather Hyperlipidemia Paternal Grandfather Social History Tobacco Use Smoking status: Every Day Packs/day: 1 Types: Cigarettes Smokeless tobacco: Never Vaping Use Vaping Use: Some days Substance Use Topics Alcohol use: No Drug use: Yes Types: Marijuana, Narcotics Comment: mjn during ; but not recently; Hx opiod use - attends AA Objective Physical Exam Vitals and nursing note reviewed. Constitutional: Appearance: Normal appearance. Cardiovascular: Rate and Rhythm: Normal rate. Pulmonary: Effort: Pulmonary effort is normal. Musculoskeletal: General: Swelling and tenderness present. No deformity or signs of injury. Right lower leg: No edema. Left lower leg: No edema. Legs: Skin: General: Skin is warm and dry. Findings: Erythema present. No bruising or rash. Neurological: Mental Status: She is alert. ASSESSMENT/PLAN: 1. Localized swelling of left lower leg - ICD9: 782.2, ICD10: R22.42 - suspect phlebitis. - US LEG VEIN DVT UNL VAS LAB- to be done at 1: 00 today. - will call with result and recommendations. - CLINDAMYCIN HCL 300 MG CAPSULE - warm compresses to area 2-3 times daily. - Follow-up with your PCP in 3-5 days if symptoms have not improved or sooner if symptoms worsen - Discussed red flags and need for immediate medical evaluation if any occur. - Discussed supportive care treatment with fluids, rest and analgesia. - Discussed expected course of illness Yoselyn Chandra APRN.MONIQUE documented in this encounter [facility] 08-20-2023 Telephone encounter Note Letter done. To front man for patient to corn picker. Left detailed voicemail. Naima Baker RN [facility] 08-20-2023 Miscellaneous Notes Letter done. To front man for patient to corn picker. Left detailed voicemail. Naima Baker RN Yes, I can sign. Ema Abarca APRN.CNM Patient had c/s 07/16/23 and wants to return to work on 08/28/23. Her 6 week visit isn't until 09/01 with [facility] though and her 2 week PP visit was 08/01 with [facility]. Is letter okay? Patient will corn picker if completed. Naima Baker RN Left message for patient to call office. What date is she planning to go back to work? Does she want to pick letter up or have it faxed? Delivered 07/16/23 via and has appt scheduled for 09/01. Does she need it prior to that appointment? Naima Baker RN Pt work is requesting a doctor letter stating that she can return to work after 6 weeks of delivery. Please advise and call pt when ready. Thank you. documented in this encounter [facility] 08-20-2023 Telephone encounter Note Yes, I can sign. Ema Abarca APRN.CNM [facility] 08-20-2023 Telephone encounter Note Patient had c/s 07/16/23 and wants to return to work on 08/28/23. Her 6 week visit isn't until 09/01 with [facility] though and her 2 week PP visit was 08/01 with [facility]. Is letter okay? Patient will corn picker if completed. Naima Baker RN [facility] 08-20-2023 Telephone encounter Note Left message for patient to call office. What date is she planning to go back to work? Does she want to pick letter up or have it faxed? Delivered 07/16/23 via and has appt scheduled for 09/01. Does she need it prior to that appointment? Naima Baker RN [facility] 08-20-2023 Telephone encounter Note Pt work is requesting a doctor letter stating that she can return to work after 6 weeks of delivery. Please advise and call pt when ready. Thank you. [facility] 08-02-2023 History of Present illness Narrative EARLY VISIT Crystal Machuca is a 33 year old here for 1 week visit. Delivery Summary: C/S by DANIEL on 07/16/2023 - non reassuring heart tones Male - Leonardo 7 lb 15 oz Bilateral salpingectomy ROS: General: Denies any fever or chills Hypertension Screening: Headache? Yes. Was it successfully treated with Tylenol? No, but Ibuprofen did help Visual Changes? No Epigastric Pain? No Increased Swelling? No Taking any BP medications at home? No If applicable, monitoring BP at home? (If Yes, include results) N/A Mood: normal Depression: denies symptoms of depression. OB Depression and Anxiety Screening- This Encounter (since 08/01/2023) Over the past 2 weeks have you felt down, depressed, or hopeless? Negative Over the past two weeks, have you felt little interest or pleasure in doing things? Negative Feeling nervous, anxious or on edge 0-Not at all Not being able to stop or control worrying 0-Not al all Anxiety Pre-Screening Total (If >/= 3 additional questions will be reviewed) 0 Feeding: Bottle feeding problems: None Bladder: No dysuria, gross hematuria, urinary frequency, urinary urgency, or incontinence Bowel symptoms: Negative for abdominal discomfort, blood in stools or black stools Abdomen: She reports no incisional redness, tenderness, erythema Bleeding: light flow Bottom and Perineum: No issues Sleep: no sleep concerns, feels rested [place] since delivery: Not resumed Emotional support: Yes Exercise: N/A Other issues: None PHYSICAL EXAMINATION: BP 108/62 Wt 207 lb (93.9 kg) LMP 10/15/2022 (Exact Date) No BMI 34.45 kg/m General: pleasant,female in no apparent distress, A&O x 3. Skin warm and intact. Breast: Deferred Abdomen: soft, non-tender, and no masses /Incision: No incisional redness, swelling, or drainage Pelvic: Deferred Bimanual: Deferred ASSESSMENT AND PLAN: 33 year old status post CS with normal course. Contraception plan: tubal ligation. Reinforced 6-week pelvic rest. Encouraged condom usage should patient deviate. Education: resources provided - see MA/RN note Follow up: Return to Clinic for 6 week visit and as needed Ema Abarca APRN.CNM documented in this encounter [facility] 07-18-2023 Progress note Note Date/Time July 18, 2023 7:42am [facility] Medical Records Department [address] [place] [address] Progress Note - OBGYN 07/18/23 0738 MR#: [id number] Acct: [id number] Name: CRYSTAL MACHUCA Rep #:[id number] : 1990 33 From: Claudia Lozano CNM PCP: Dr. Mary Myers MD Status:ADM IN [id number] Subjective Subjective Patient seen at bedside. Sitting in chair at bedside with infant. with minimal support. Ambulating and voiding without difficulty. Passing minimalflatus. Pain is minimal and controlled with Tylenol and Motrin. to stay 5days post delivery due to patient taking subutex. Objective Data Objective Data Vital Signs: Vital Signs Temp Pulse Resp BP Pulse Ox O2 Del Method 97.2 F L 81 16 118/65 99 Room Air 07/17/23 20:49 07/18/23 02:21 07/18/23 02:21 07/18/23 02:21 07/17/23 15:50 07/18/23 02:21 Oxygen Delivery Method Room Air Weight: 224 lb Body Mass Index (BMI) 37.3 Intake & Output: Intake and Output for Last 24 Hours 07/16/23 07/17/23 07/18/23 23:59 23:59 23:59 Intake Total 1591.64 / 1591.64 1500 / 1500 Output Total 1500 / 1500 1950 / 1950 Balance 91.64 / 91.64 -450 / -450 Lab / Micro Data 07/17/23 04:55 ROS Eyes Eyes: Denies blurry vision, change in vision or spots in vision ENT HEENT: Denies dizziness or headache(s) Cardiovascular Cardiovascular: Denies abdominal pain, chest pain or dyspnea Respiratory/Chest Respiratory/Chest: Denies cough, dyspnea, shortness of breath at rest or shortness of breath with exertion Gastrointestinal Gastrointestinal: Denies abdominal pain, diarrhea or vomiting Genitourinary Genitourinary: Denies change in urinary stream, difficulty urinating or dysuria Musculoskeletal Musculoskeletal: Reports none Integumentary Integumentary: Denies rash Neurologic Neurologic: Denies dizziness, headache(s), memory loss or weakness Physical Exam Narrative Dressing is dry and intact Const alert and no apparent distress General Appearance: cooperative and comfortable Exam Limitations: no limitations HEENT normocephalic Eyes General Eye: normal appearance of both eyes Neck full ROM General: normal visual inspection Chest Chest: symmetrical chest wall rise Resp normal respiratory effort and normal air movement Effort and Inspection: symmetric chest movement Auscultation: clear to auscultation bilaterally Cardio regular rate and regular rhythm GI normal to inspection, nondistended, normoactive bowel sounds Back/Spine normal ROM Extremity full ROM and no calf tenderness General Extremity: normal exam except as noted Skin no rashes or lesions noted Neuro CN's II-XII intact bilaterally Psych mental status grossly normal Assessment & Plan (1) delivery delivered: (2) Anxiety: (3) PTSD (post-traumatic stress disorder): (4) Depression: (5) Bipolar 2 disorder: (6) Asthma: (7) Care and examination of lactating mother: PLAN: Plan POD 2 Primary C/S Pain control Increase ambulation support Anticipate discharge/hotel status tomorrow- patient residing at [facility] 07/18/23 0742 <Electronically signed by Claudia Lozano CNM> Cosigner Signature (if applicable): CC: ~ Signed [facility] Work Phone: 1(108) 478-856605-01-2024 Progress note Author Claudia Lozano [facility] July 17, 2023 8:30am Note Date/Time July 17, 2023 8:30am [facility] Medical Records Department [address] [place] [address] Progress Note - OBGYN 07/17/23 0828 MR#: [id number] Acct: [id number] Name: CRYSTAL MACHUCA Rep #:[id number] 1 : 1990 33 From: Claudia Lozano CNM PCP: Dr. Mary Myers MD Status:ADM IN Location: [facility]0 Subjective Subjective Patient seen at bedside. Sitting up in chair at bedside. with support. Voided for the first time since myers out. Pain controlled at this time. Objective Data Objective Data Vital Signs: Vital Signs Temp Pulse Resp BP Pulse Ox O2 Del Method 98.3 F 80 16 113/64 98 Room Air 07/16/23 17:35 07/17/23 04:08 07/17/23 05:01 07/17/23 04:08 07/17/23 07:35 07/17/23 05:01 Oxygen Delivery Method Room Air Weight: 224 lb Body Mass Index (BMI) 37.3 Intake & Output: Intake and Output for Last 24 Hours 07/15/23 07/16/23 07/17/23 23:59 23:59 23:59 Intake Total 1591.64 / 1591.64 1500 / 1500 Output Total 1500 / 1500 1150 / 1150 Balance 91.64 / 91.64 350 / 350 Lab / Micro Data 07/17/23 04:55 Labs: Laboratory Results - last 24 hr 07/16/23 09:30: Urine Opiates Screen NEGATIVE, Urine Methadone Screen NEGATIVE, Ur Barbiturates Screen NEGATIVE, Ur Phencyclidine Scrn NEGATIVE, Ur AmphetaminesScreen NEGATIVE, MDMA (Ecstasy) Screen NEGATIVE, U Benzodiazepines Scrn NEGATIVE, Urine Cocaine Screen NEGATIVE, U Cannabinoids Screen NEGATIVE, Ur DrugScreen Comment 07/16/23 09:40: WBC 13.4 H, RBC 3.49 L, Hgb 9.9 L, Hct 30.6 L, MCV 87.7, MCH 28.4, MCHC 32.4, RDW Std Deviation 42.8, RDW Coeff of Elvia 13.3, Plt Count 237, MPV 11.7, Immature Gran % (Auto) 0.500, Neut % (Auto) 69.6, Lymph % (Auto) 19.8,Kern % (Auto) 6.9, Eos % (Auto) 2.8, Baso % (Auto) 0.4, Absolute Neuts (auto) 9.3 H, Absolute Lymphs (auto) 2.66, Nucleated RBC % 0, Syphilis Total Ab Non-reactive, Blood Type O POSITIVE, Antibody Screen NEGATIVE 07/17/23 04:55: WBC 13.8 H, RBC 3.01 L, Hgb 8.4 L, Hct 26.4 L, MCV 87.7, MCH 27.9, MCHC 31.8 L, RDW Std Deviation 42.1, RDW Coeff of Evlia 13.3, Plt Count 203,MPV 11.5 ROS Eyes Eyes: Denies blurry vision, change in vision or spots in vision ENT HEENT: Denies dizziness or headache(s) Cardiovascular Cardiovascular: Denies abdominal pain, chest pain or dyspnea Respiratory/Chest Respiratory/Chest: Denies cough, dyspnea, shortness of breath at rest or shortness of breath with exertion Gastrointestinal Gastrointestinal: Denies abdominal pain, diarrhea or vomiting Genitourinary Genitourinary: Denies change in urinary stream, difficulty urinating or dysuria Musculoskeletal Musculoskeletal: Reports none Integumentary Integumentary: Denies rash Neurologic Neurologic: Denies dizziness, headache(s), memory loss or weakness Assessment & Plan (1) delivery delivered: (2) Anxiety: (3) PTSD (post-traumatic stress disorder): (4) Depression: (5) Bipolar 2 disorder: (6) Drug abuse: COMMENT: @ 39&1 (7) Asthma: (8) Anemia: PLAN: Plan POD 1 Primary C/S Pain control support Continue Subutex PO daily to stay in patient x 5 days 07/17/23 0830 <Electronically signed by Claudia Lozano CNM> Cosigner Signature (if applicable): CC: ~ Signed [facility] Work Phone: 1(749) 845-926804-30-2024 Procedure [facility] 07-16-2023 History and physical note Author Matt Kramer [facility] July 16, 2023 8:42am Note Date/Time July 16, 2023 8:3 4am [facility] Medical Records Department [address] [place] [address] H&P Exam - ROLL TABLE 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 Mary Myers MD Status:ADM IN Location: [id number] HPI - General General Date of Admission: 07/16/23 Date of Service: 07/16/23 HPI Narrative CRYSTAL MACHUCA, is a 33 F who presents for induction. Maternal Data Information Final ASHISH: 07/22/23 Gestational age: 39&1 PFSH PFSH Medical History Alcohol abuse Allergies Anemia Anxiety Asthma Bipolar 2 disorder Bipolar disorder Depression Drug abuse Hepatitis B Hx MRSA infection Hx of fracture Hx: UTI (urinary tract infection) Lymphocytic colitis MRSA infection PTSD (post-traumatic stress disorder) Recurrent infections Smoker Tumors Wears glasses Home Medications buprenorphine 100 mg/0.5 mL solution,exten.rel.subcutaneous syringe (Sublocade) 100 mg subcut QMONTH 07/16/22 [History Last Taken Unknown] prazosin 1 mg capsule 1 mg PO QHS 07/16/22 [History Last Taken Unknown] gabapentin 100 mg capsule 400 mg PO Q8H 07/19/22 [History Last Taken Unknown] ondansetron 4 mg disintegrating tablet 4 mg PO Q8H PRN nausea and vomiting #30 tabs 08/08/22 [Rx Last Taken Unknown] lithium carbonate 150 mg capsule 150 mg PO BID 10/17/22 [History Last Taken 10/18/22] pantoprazole 20 mg tablet,delayed release 20 mg PO Q12H #60 tabs 10/19/22 [Rx Last Taken Unknown] pantoprazole 20 mg tablet,delayed release 20 mg PO Q12H #60 tabs 10/19/22 [Rx Last Taken Unknown] sucralfate 1 gram tablet 1 g PO .bid 12 weeks #60 tabs 10/19/22 [Rx Last Taken Unknown] sucralfate 1 gram tablet 1 g PO .bid 4 weeks #60 tabs 10/19/22 [Rx Last Taken Unknown] Allergy/AdvReac Type Severity Reaction Status Date / Time amoxicillin [From Augmentin] Allergy Intermediate Hives Verified 11/01/22 09:59 clavulanic acid Allergy Intermediate Hives Verified 11/01/22 09:59 [From Augmentin] penicillin G Allergy Intermediate Hives Verified 10/19/22 12:51 Family History Mother Anemia Cancer cervical/ovarian Grandmother Asthma Breast cancer Parkinsons Poor mental health Father Arthritis Bowel disease colitis Grandfather Colon cancer Diabetes Other Anxiety Surgical History History of tonsillectomy and adenoidectomy Carver teeth removed Social History household members: other details: 180 treatment program current occupational status: unemployed Smoking Status: Current every day smoker tobacco type: cigarettes Electronic Cigarette Use: not used alcohol intake: former year quit: 2014 substance use type: marijuana and crack/cocaine what type of physical activity do you participate in: yoga do you feel safe at home: Yes NST FHR Rate Baby A Baseline: 120 Variability:: Moderate Accelerations:: 15 x 15 Decelerations:: None Uterine Activity:: Occasional Vital Signs Vital Signs Vital Signs: 07/16/23 07:27 07/16/23 07:27 07/16/23 07:29 Pulse Rate 88 85 Blood Pressure 128/76 H BP Systolic 128 BP Diastolic 76 Pulse Ox 07/16/23 07:29 Pulse Rate Blood Pressure BP Systolic BP Diastolic Pulse Ox 96 Physical Exam Const alert, oriented x3 and no apparent distress GI soft to palpation, non-tender and non-distended Inspection: gravid external exam normal Narrative: cvx - 2/80/-2 Labs Labs Labs: Hct 37.4 % (37-47) Hgb 11.9 g/dL (12.0-15.0) L Hep Bs Antigen Not Reportable Miscellaneous Test Assessment & Plan (1) Drug abuse: COMMENT: @ 39&1 (2) PTSD (post-traumatic stress disorder): (3) with 39 completed weeks gestation: PLAN: Plan Admit to L&D Induction of labor for subutex use Intracervical myers placed & plan for IV pitocin GBS negative Pain - epidural as desired EFW less than 4500g & patient with adequate pelvis 07/16/23 0842 <Electronically signed by Matt Kramer MD> Cosigner Signature (if applicable): CC: Dr. Mary Myers MD; Dr. Matt Kramer MD~ Signed [facility] Work Phone: 1(327) 201-764704-30-2024 Procedure [facility] 07-12-2023 Telephone encounter Note* Telephone Encounter - Rasheeda Richards RN - 07/12/2023 3:01 PM EDT Patient called back and notified. Patient would like to reschedule for 07/15. L&D notified and induction moved. Rasheeda Richards RN [facility]04-26-2024 Miscellaneous Notes* Telephone Encounter - Rasheeda Richards RN - 07/12/2023 3:01 PM EDT Patient called back and notified. Patient would like to reschedule for 07/15. L&D notified and induction moved. Rasheeda Richards RN * Telephone Encounter - Naima Baker RN - 07/12/2023 2:13 PM EDT Left message for patient to call office. Patient's elective induction is currently scheduled for Friday 07/14 at 7am and it needs to be bumped back to later in the week now. Saturday-Saturday 7am next week is open. Does she have a preference what day? Naima Baker RN [facility] Telephone encounter Note * Telephone Encounter - Naima Baker RN - 07/12/2023 2:13 PM EDT Left message for patient to call office. Patient's elective induction is currently scheduled for Friday 07/14 at 7am and it needs to be bumped back to later in the week now. Saturday-Saturday 7am next week is open. Does she have a preference what day? Naima Baker RN [facility]04-23-2024 History of Present illness Narrative* Ema Abarca APRN.ABBIE - 07/09/2023 9:42 AM EDT NST SUMMARY PROVIDER ASSESSMENT AND INTERPRETATION Crystal Machuca is a 33 year old female, , who is at 38w1d with an ASHISH of 07/22/2023, by Last Menstrual Period dating method. Indications for NST: Other: maternal subutex maintenance Baseline: 130 Variability: Moderate Accelerations: Present 15 X 15 Decelerations: None Contractions: TOCO: None Interpretation: Category I and Reactive SIGNATURE: Ema Abarca APRN.CNM [facility] Progress note* Quick Notes - Ema Abarca APRN.CNM - 07/09/2023 9:39 AM EDT OSCAR-S: Crystal Machuca is a 33 year old female who presents at 38w1d with ASHISH:07/22/2023, by Last Menstrual Period for a routine visit. Denies headache, visual changes, chest pain, shortness of breath, vaginal bleeding, leakage of fluid, or dysuria. Feeling well, no complaints. Smoking 1/2 PPD O: See flow sheet Gen: No apparent distress Abd: Gravid, nontender 3309g, 87%ile, MVP 8.7 cm. RIO 25.1 Mild polyhydramnios NST reactive today ASSESSMENT/PLAN: 1. High-risk in third trimester 2. Anemia complicating , third trimester 3. 38 weeks gestation of 4. Supervision of other high risk pregnancies, third trimester P: 1) Labor instructions reviewed and when to call 2) RTO in one week if undelivered. 3) Growth US if undelivered at 39 wk 4) Continue testing if undelivered 5) Patient requesting elective IOL. Reviewed risks, benefits, and alternatives. Consent form signed. IOL on 07/15/23 at 0700 Ema Abarca APRN.CNM [facility]04-23-2024 Miscellaneous Notes* Quick Notes - Ema Abarca APRN.CNM - 07/09/2023 9:39 AM EDT ARLEYS: Crystal Machuca is a 33 year old female who presents at 38w1d with ASHISH:07/22/2023, by Last Menstrual Period for a routine visit. Denies headache, visual changes, chest pain, shortness of breath, vaginal bleeding, leakage of fluid, or dysuria. Feeling well, no complaints. Smoking 1/2 PPD O: See flow sheet Gen: No apparent distress Abd: Gravid, nontender 3309g, 87%ile, MVP 8.7 cm. RIO 25.1 Mild polyhydramnios NST reactive today ASSESSMENT/PLAN: 1. High-risk in third trimester 2. Anemia complicating , third trimester 3. 38 weeks gestation of 4. Supervision of other high risk pregnancies, third trimester P: 1) Labor instructions reviewed and when to call 2) RTO in one week if undelivered. 3) Growth US if undelivered at 39 wk 4) Continue testing if undelivered 5) Patient requesting elective IOL. Reviewed risks, benefits, and alternatives. Consent form signed. IOL on 07/15/23 at 0700 Ema Abarca APRN.CNM documented in this encounterMercy Health [facility]04-[facility]24 Instructions* Patient Instructions* Robbi Macias MA - 07/09/2023 8:52 AM EDT SEQUENTIAL SCREENINGS The [facility] offers sequential screenings for women who are interested in screenings for chromosomal abnormalities and certain defects during a . The sequential screen combinesultrasound and blood tests to determine the risk of chromosomal abnormalities, including Down's Syndrome (Trisomy 21) and Trisomy 18, as well as open neural tube defects including spina bifida. Ultrasound examination is performed between 11 weeks and 13 weeks gestational age. Blood tests are drawn after the ultrasound and again later in the between 15 and 21 weeks gestational age. Please let your physician know if you are interested in this testing. It will require an appointment withour industrial engineering technician. This is not an ultrasound performed by a physician in our office during a routine visit. SIGNS AND SYMPTOMS OF LABOR 1. Contractions every 10 minutes or more often 2. Clear, pink, or brownish fluid (water) leaking from vagina 3. Feeling that baby is pushing down, pressure 4. Low, dull backache 5. Cramps that feel like a period 6. Cramps with or without diarrhea If you notice any of the above symptoms, contact our office at [phone] and ask to speak with anurse. After hours, you can call doctors registry at [phone] OR call [facility] at [phone] ask to have the doctor cone runner paged. If you consider this an emergency, dial [phone]--9 or go to your nearest emergency department. NEED HELP? Are you dealing with a violent or abusive relationship? Are you a victim of rape or sexual assult? Call [facility] ([place]) 24 hour Crisis Hotline: 626.770.2212 or 924-355-6745. MANUAL Your Guide to a Healthy manual is now on-line. Visit [email or web address] to download your free copy documented in this encounterMercy Health [facility]04-22-2024 History of Present illness Narrative* Greta Martines - 07/08/2023 9:13 AM EDT POPULATION HEALTH NAVIGATION OUTREACH Action/FYI Left message to add assistant manager retail to OB provider field My chart sent Reason for Outreach Medicaid OB/Peds Care Gaps due: N/A Patient Contacted: Unable or unnecessary to reach patient: Left message SmartCare systemt message sent Navigation Signature: Greta Martines Population Health Navigator July 08, 2023 9:14 AM documented in this encounterMercy Health [facility]04-16-2024 Miscellaneous Notes* Quick Notes - Ema Abarca APRN.CNM - 07/02/2023 11:08 AM EDT USMAN: Crystal Machuca is a 33 year old female who presents at 37w1d with ASHISH:07/22/2023, by Last Menstrual Period for a routine visit. Denies headache, visual changes, chest pain, shortness of breath, vaginal bleeding, leakage of fluid, or dysuria. Feeling well, no complaints. O: See flow sheet Gen: No apparent distress Abd: Gravid, nontender ASSESSMENT/PLAN: 1. 37 weeks gestation of 2. High-risk in third trimester P: 1) Labor precautions reviewed and when to call 2) RTO in one week with NST 3) NST reactive, repeat next week 4) Discussed IOL around 39 weeks and she would like to proceed, will schedule next visit. 5) Continues Subutex and management with . Ema Abarca APRN.CNM documented in this encounterMercy Health [facility]04-16-2024 Instructions* Patient Instructions* Robbi Macias MA - 07/02/2023 10:42 AM EDT SEQUENTIAL SCREENINGS The [facility] offers sequential screenings for women who are interested in screenings for chromosomal abnormalities and certain defects during a . The sequential screen combinesultrasound and blood tests to determine the risk of chromosomal abnormalities, including Down's Syndrome (Trisomy 21) and Trisomy 18, as well as open neural tube defects including spina bifida. Ultrasound examination is performed between 11 weeks and 13 weeks gestational age. Blood tests are drawn after the ultrasound and again later in the between 15 and 21 weeks gestational age. Please let your physician know if you are interested in this testing. It will require an appointment withour industrial engineering technician. This is not an ultrasound performed by a physician in our office during a routine visit. SIGNS AND SYMPTOMS OF LABOR 1. Contractions every 10 minutes or more often 2. Clear, pink, or brownish fluid (water) leaking from vagina 3. Feeling that baby is pushing down, pressure 4. Low, dull backache 5. Cramps that feel like a period 6. Cramps with or without diarrhea If you notice any of the above symptoms, contact our office at [phone] and ask to speak with anurse. After hours, you can call doctors registry at [phone] OR call [facility] at [phone] ask to have the doctor cone runner paged. If you consider this an emergency, dial 9-5 or go to your nearest emergency department. NEED HELP? Are you dealing with a violent or abusive relationship? Are you a victim of rape or sexual assult? Call [facility] ([place]) 24 hour Crisis Hotline: 902.239.5246 or 603-408-8649. MANUAL Your Guide to a Healthy manual is now on-line. Visit [email or web address] to download your free copy documented in this encounterMercy Health [facility]04-12-2024 History of Present illness Narrative* Ema Abarca APRN.CNM - 06/28/2023 8:48 AM EDT NST SUMMARY PROVIDER ASSESSMENT AND INTERPRETATION Crystal Machuca is a 33 year old female, , who is at 36w4d with an ASHISH of 07/22/2023, by Last Menstrual Period dating method. Indications for NST: Other: BPP 6/8, off for breathing Baseline: 150 Variability: Moderate Accelerations: Present 15 X 15 Decelerations: None Contractions: TOCO: None Interpretation: Reactive SIGNATURE: Ema Abarca APRN.CNM documented in this encounterMercy Health [facility]04-10-2024 Miscellaneous Notes* Result Encounter Note - Brooke Suazo MD - 06/26/2023 2:02 PM EDT Anatomy ultrasound reviewed. Mild polyhydramnios. Needs NST weekly. Follow up as clinically indicated. Please place copy in ob chart. Brooke Suazo MD documented in this encounterMercy Health [facility]04-10-2024 Miscellaneous Notes* Quick Notes - Ema Abarca APRN.CNM - 06/26/2023 10:26 AM EDT ARELYS: Crystal Machuca is a 33 year old female who presents at 07/22/2023, by Last Menstrual Period fora routine visit. Denies headache, visual changes, chest pain, shortness of breath, vaginal bleeding, leakage of fluid, or dysuria. Feeling well, no complaints. BPP today and growth today O: See flow sheet Gen: No apparent distress Abd: Gravid, nontender BPP 08/23, NST reactive 10/25 Growth US today, 87th percentile and RIO 25 A: ASSESSMENT/PLAN: 1. 36 weeks gestation of 2. High-risk in third trimester 3. Anemia complicating , third trimester 4. complicated by subutex maintenance, antepartum (HCC) P: 1) PTL precautions reviewed and when to call 2) RTO in one week, weekly NST. 3) Would like IOL around 39 wk 4) Continues Subtex treatment with 5) Completed [employer] consult, plan sent to labor and delivery. Ema Abarca APRN.CNM documented in this encounterMercy Health [facility]04-10-2024 Instructions* Patient Instructions* Karla Morgan MA - 06/26/2023 9:19 AM EDT SEQUENTIAL SCREENINGS The [facility] offers sequential screenings for women who are interested in screenings for chromosomal abnormalities and certain defects during a . The sequential screen combinesultrasound and blood tests to determine the risk of chromosomal abnormalities, including Down's Syndrome (Trisomy 21) and Trisomy 18, as well as open neural tube defects including spina bifida. Ultrasound examination is performed between 11 weeks and 13 weeks gestational age. Blood tests are drawn after the ultrasound and again later in the between 15 and 21 weeks gestational age. Please let your physician know if you are interested in this testing. It will require an appointment withour industrial engineering technician. This is not an ultrasound performed by a physician in our office during a routine visit. SIGNS AND SYMPTOMS OF LABOR 1. Contractions every 10 minutes or more often 2. Clear, pink, or brownish fluid (water) leaking from vagina 3. Feeling that baby is pushing down, pressure 4. Low, dull backache 5. Cramps that feel like a period 6. Cramps with or without diarrhea If you notice any of the above symptoms, contact our office at [phone] and ask to speak with anurse. After hours, you can call doctors registry at [phone] OR call [facility] at [phone] ask to have the doctor cone runner paged. If you consider this an emergency, dial 9-1-3 or go to your nearest emergency department. NEED HELP? Are you dealing with a violent or abusive relationship? Are you a victim of rape or sexual assult? Call [facility] ([place]) 24 hour Crisis Hotline: 287.307.7527 or 651-644-1042. MANUAL Your Guide to a Healthy manual is now on-line. Visit [email or web address] to download your free copy documented in this encounterMercy Health [facility]03-26-2024 Miscellaneous Notes* Quick Notes - Matt Kramer MD - 06/11/2023 10:44 AM EDT KJ - VB No. LOF No. CTXS No. Movement: present. Other c/o: No. Medication list reviewed. Physical Exam See Flow Sheet Gen: no accute distress, well appearing Abd: soft, nontender, gravid A/P 34w1d Estimated Date of Delivery: 07/22/23 Anemia - encouraged Fe & Regular PNV use. Repeat CBC today. Maternal subutex use - growth US & NSTs at 36 weeks PTL precautions reviewed, Kick counts reviewed. Matt Kramer MD documented in this encounterMercy Health [facility]03-26-2024 Instructions* Patient Instructions* Karla Morgan MA - 06/11/2023 10:24 AM EDT SEQUENTIAL SCREENINGS The [facility] offers sequential screenings for women who are interested in screenings for chromosomal abnormalities and certain defects during a . The sequential screen combinesultrasound and blood tests to determine the risk of chromosomal abnormalities, including Down's Syndrome (Trisomy 21) and Trisomy 18, as well as open neural tube defects including spina bifida. Ultrasound examination is performed between 11 weeks and 13 weeks gestational age. Blood tests are drawn after the ultrasound and again later in the between 15 and 21 weeks gestational age. Please let your physician know if you are interested in this testing. It will require an appointment withour industrial engineering technician. This is not an ultrasound performed by a physician in our office during a routine visit. SIGNS AND SYMPTOMS OF LABOR 1. Contractions every 10 minutes or more often 2. Clear, pink, or brownish fluid (water) leaking from vagina 3. Feeling that baby is pushing down, pressure 4. Low, dull backache 5. Cramps that feel like a period 6. Cramps with or without diarrhea If you notice any of the above symptoms, contact our office at [phone] and ask to speak with anurse. After hours, you can call doctors registry at [phone] OR call [facility] at [phone] ask to have the doctor cone runner paged. If you consider this an emergency, dial 7-9-9 or go to your nearest emergency department. NEED HELP? Are you dealing with a violent or abusive relationship? Are you a victim of rape or sexual assult? Call [facility] ([facility] 24 hour Crisis Hotline: 206.366.9831 or 513-302-9630. MANUAL Your Guide to a Healthy manual is now on-line. Visit [email or web address] to download your free copy documented in this encounterMercy Health [facility]03-12-2024 Miscellaneous Notes* Result Encounter Note - Brooke Suazo MD - 05/28/2023 10:47 AM EDT Anatomy ultrasound reviewed. No abnormalities identified. Follow up as clinically indicated. Pleaseplace copy in ob chart. Brooke Suazo MD documented in this encounterMercy Health [facility]03-12-2024 Miscellaneous Notes* Quick Notes - Brooke Suazo MD - 05/28/2023 9:20 AM EDT RR- VB No. LOF No. CTXS No. Movement: present. Other c/o: No. Medication list reviewed. Physical Exam See Flow Sheet Abd: soft, nontender, gravid Ext: edema: Trace A/P 32w1d Estimated Date of Delivery: 07/22/23 Labs: reviewed CBC, anemia, recheck next visit and cont Fe increased normal fluid, m aternal obesity and subutex maintance- growth scans 4 weeks and start NSTS 36 weeks . Brooke Suazo M.D. documented in this encounterMercy Health [facility]03-12-2024 Instructions* Patient Instructions* Mouna Kelley MA - 05/28/2023 9:05 AM EDT SEQUENTIAL SCREENINGS The [facility] offers sequential screenings for women who are interested in screenings for chromosomal abnormalities and certain defects during a . The sequential screen combinesultrasound and blood tests to determine the risk of chromosomal abnormalities, including Down's Syndrome (Trisomy 21) and Trisomy 18, as well as open neural tube defects including spina bifida. Ultrasound examination is performed between 11 weeks and 13 weeks gestational age. Blood tests are drawn after the ultrasound and again later in the between 15 and 21 weeks gestational age. Please let your physician know if you are interested in this testing. It will require an appointment withour industrial engineering technician. This is not an ultrasound performed by a physician in our office during a routine visit. SIGNS AND SYMPTOMS OF LABOR 1. Contractions every 10 minutes or more often 2. Clear, pink, or brownish fluid (water) leaking from vagina 3. Feeling that baby is pushing down, pressure 4. Low, dull backache 5. Cramps that feel like a period 6. Cramps with or without diarrhea If you notice any of the above symptoms, contact our office at [phone] and ask to speak with anurse. After hours, you can call doctors registry at [phone] OR call [facility] at [phone] ask to have the doctor cone runner paged. If you consider this an emergency, dial 91-7 or go to your nearest emergency department. NEED HELP? Are you dealing with a violent or abusive relationship? Are you a victim of rape or sexual assult? Call [facility] ([place]) 24 hour Crisis Hotline: 755.928.6563 or 237-439-6072. MANUAL Your Guide to a Healthy manual is now on-line. Visit [email or web address] to download your free copy documented in this encounterMercy Health [facility]02-27-2024 Miscellaneous Notes* Quick Notes - Matt Kramer MD - 05/14/2023 10:55 AM EST KJ - VB No. LOF No. CTXS No. Movement: present. Other c/o: left low back & hip pain that radiates down her leg. Medication list reviewed. Physical Exam See Flow Sheet Gen: no accute distress, well appearing Abd: soft, nontender, gravid A/P 30w1d Estimated Date of Delivery: 07/22/23 Encouraged tobacco cessation - patient does not have plans for this Maternal subutex use - growth US in 2 weeks Anemia - encouraged Fe & Regular PNV use Left hip & low back pain and likely sciatica - advised on conservative measures. Consult to physical therapy. PTL precautions reviewed, Kick counts reviewed. Matt Kramer MD documented in this encounterMercy Health [facility]02-27-2024 Instructions* Patient Instructions* Mouna Kelley Ma - 05/14/2023 10:39 AM EST SEQUENTIAL SCREENINGS The [facility] offers sequential screenings for women who are interested in screenings for chromosomal abnormalities and certain defects during a . The sequential screen combinesultrasound and blood tests to determine the risk of chromosomal abnormalities, including Down's Syndrome (Trisomy 21) and Trisomy 18, as well as open neural tube defects including spina bifida. Ultrasound examination is performed between 11 weeks and 13 weeks gestational age. Blood tests are drawn after the ultrasound and again later in the between 15 and 21 weeks gestational age. Please let your physician know if you are interested in this testing. It will require an appointment withour industrial engineering technician. This is not an ultrasound performed by a physician in our office during a routine visit. SIGNS AND SYMPTOMS OF LABOR 1. Contractions every 10 minutes or more often 2. Clear, pink, or brownish fluid (water) leaking from vagina 3. Feeling that baby is pushing down, pressure 4. Low, dull backache 5. Cramps that feel like a period 6. Cramps with or without diarrhea If you notice any of the above symptoms, contact our office at [phone] and ask to speak with anurse. After hours, you can call doctors registry at [phone] OR call [facility] at [phone] ask to have the doctor cone runner paged. If you consider this an emergency, dial 9-1-6 or go to your nearest emergency department. NEED HELP? Are you dealing with a violent or abusive relationship? Are you a victim of rape or sexual assult? Call [facility] ([place]) 24 hour Crisis Hotline: 542.900.6329 or 386-210-2732. MANUAL Your Guide to a Healthy manual is now on-line. Visit [email or web address] to download your free copy documented in this encounterMercy Health [facility]02-14-2024 Miscellaneous Notes* Telephone Encounter - Paula Le, RN - 05/01/2023 10:23 AM EST 3rd risk assessment form submitted 05/01/23 Paula Le RN documented in this encounterMercy Health – [facility]02-13-2024 Miscellaneous Notes* Quick Notes - Brooke Suazo MD - 04/30/2023 10:33 AM EST RR- VB No. LOF No. CTXS No. Movement: present. Other c/o: some round ligament pain> On subutex, denies other substance use Medication list reviewed. Physical Exam See Flow Sheet Abd: soft, nontender, gravid Ext: edema: Trace A/P 28w1d Estimated Date of Delivery: 07/22/23 SUper other high risk Labs: 28 week labs today d/w her contraception after delivery, plans tubal, declines LARC at delivery. Risks, benefits and alternatives to sterilization have been discussed with the patient. She declines reversible options including LARC. She understands sterilization is permanent, irreversible, risks of failure, regret and ectopic. In addition she understands there are surgical risks as well. Her questions were answeredto her satisfaction and consent was signed F/u in 2 week or prn TDAP reviewed, desires this today. Substance abuse disorder, on subutex, denies other substance use other than tob use, 10 cig a day. Growth scan ordered Brooke Suazo M.D. Medical Decision Making: Problems: Low: Acute, uncomplicated illness or injury Moderate: 2+ stable chronic illnesses Data: Unique test result(s) reviewed: 2 Unique test(s) ordered: 1 Risk: Moderate: Moderate risk from testing/treatment Medical Decision Making Level: 4 - Moderate documented in this encounterMercy Health [facility]02-13-2024 History of Present illness Narrative* Mouna Kelley Ma - 04/30/2023 10:14 AM EST Patient identified by name and date of . Crystal Machuca presents today for a vaccination of Tdap. Patient denies an allergy to latex: yes Patient denies a severe (life-threatening) allergy to a previous dose of Tdap, DTP, DTaP, DT or Td vaccine. Yes Patient denies history of epilepsy or neurological problems: Yes Patient is afebrile and denies being moderately or severely ill: Yes Patient denies history of Guillain-[place] Syndrome (a severe paralytic illness): Yes Tdap Adacel injection was given without incident. See immunizations for details of immunizations administered today. VIS sheet provided: Yes Provider Dr Suazo was present in office at time of injection. documented in this encounterMercy Health [facility]02-13-2024 Instructions* Patient Instructions* Mouna Kelley Ma - 04/30/2023 10:00 AM EST SEQUENTIAL SCREENINGS The [facility] offers sequential screenings for women who are interested in screenings for chromosomal abnormalities and certain defects during a . The sequential screen combinesultrasound and blood tests to determine the risk of chromosomal abnormalities, including Down's Syndrome (Trisomy 21) and Trisomy 18, as well as open neural tube defects including spina bifida. Ultrasound examination is performed between 11 weeks and 13 weeks gestational age. Blood tests are drawn after the ultrasound and again later in the between 15 and 21 weeks gestational age. Please let your physician know if you are interested in this testing. It will require an appointment withour industrial engineering technician. This is not an ultrasound performed by a physician in our office during a routine visit. SIGNS AND SYMPTOMS OF LABOR 1. Contractions every 10 minutes or more often 2. Clear, pink, or brownish fluid (water) leaking from vagina 3. Feeling that baby is pushing down, pressure 4. Low, dull backache 5. Cramps that feel like a period 6. Cramps with or without diarrhea If you notice any of the above symptoms, contact our office at [phone] and ask to speak with anurse. After hours, you can call doctors registry at [phone] OR call [facility] at [phone] ask to have the doctor cone runner paged. If you consider this an emergency, dial 9-1-1 or go to your nearest emergency department. NEED HELP? Are you dealing with a violent or abusive relationship? Are you a victim of rape or sexual assult? Call [facility] ([place]) 24 hour Crisis Hotline: 993.865.2884 or 424-837-5485. MANUAL Your Guide to a Healthy manual is now on-line. Visit [email or web address] to download your free copy documented in this encounterMercy Health [facility]12-07-2023 Miscellaneous Notes* Quick Notes - Denise Swanson MD - 02/21/2023 2:09 PM EST SW- Pt doing well. No pain, vb, lof. No FM yet PE: Gen- NAD, well appearing Abd- Soft, NT See flowsheet A/p 18 wk gestation - AFP ordered - Denies substance use - Med list reviewed and updated: Pt taking Symyax but unsure of dosing, and will update us at next visit. Discussed r/b/a of medications and she is currently being weaned off Gabapentin by psych provider - RTO anatomy US and visit after Denise Swanson DO documented in this encounterMercy Health [facility]12-07-2023 Instructions* Patient Instructions* Karla Morgan MA - 02/21/2023 1:44 PM EST SEQUENTIAL SCREENINGS The [facility] offers sequential screenings for women who are interested in screenings for chromosomal abnormalities and certain defects during a . The sequential screen combinesultrasound and blood tests to determine the risk of chromosomal abnormalities, including Down's Syndrome (Trisomy 21) and Trisomy 18, as well as open neural tube defects including spina bifida. Ultrasound examination is performed between 11 weeks and 13 weeks gestational age. Blood tests are drawn after the ultrasound and again later in the between 15 and 21 weeks gestational age. Please let your physician know if you are interested in this testing. It will require an appointment withour industrial engineering technician. This is not an ultrasound performed by a physician in our office during a routine visit. SIGNS AND SYMPTOMS OF LABOR 1. Contractions every 10 minutes or more often 2. Clear, pink, or brownish fluid (water) leaking from vagina 3. Feeling that baby is pushing down, pressure 4. Low, dull backache 5. Cramps that feel like a period 6. Cramps with or without diarrhea If you notice any of the above symptoms, contact our office at [phone] and ask to speak with anurse. After hours, you can call doctors registry at [phone] OR call [facility] at [phone] ask to have the doctor cone runner paged. If you consider this an emergency, dial [phone]--4 or go to your nearest emergency department. NEED HELP? Are you dealing with a violent or abusive relationship? Are you a victim of rape or sexual assult? Call [facility] ([place]) 24 hour Crisis Hotline: 587.159.1938 or 840-863-8413. MANUAL Your Guide to a Healthy manual is now on-line. Visit [email or web address] to download your free copy documented in this encounterMer[facility]23 Miscellaneous Notes* Quick Notes - Brooke Suazo MD - 01/07/2023 10:39 AM EDT RR- VB No. LOF No. CTXS No. Movement: present. Other c/o: No. Medication list reviewed. tob use approx 15 a day, some heartburn, no relieved w/ tums Physical Exam See Flow Sheet Abd: soft, nontender, gravid Ext: edema: no A/P 12w0d Estimated Date of Delivery: 07/22/23 n/v of , cont. w/ zofran prn Under care of Dr. Ott for subutex maintanence denies use of other substances tob use 15 a day, encouraged to cut back d/w her use of maternity 21 asw screen, desires this reports family h/o thalasemia- will check hgb electrophoresis pcn allergy- allergy consult anatomy US scheduled heartburn- rx for pepcid verbal consent for urine tox screens Brooke Suazo M.D. documented in this encounterMer[facility]10-23-2023 Instructions* Patient Instructions* Mouna Kelley Ma - 01/07/2023 10:02 AM EDT SEQUENTIAL SCREENINGS [facility] offers sequential screenings for women who are interested in screenings for chromosomal abnormalities and certain defects during a . The sequential screen combinesultrasound and blood tests to determine the risk of chromosomal abnormalities, including Down's Syndrome (Trisomy 21) and Trisomy 18, as well as open neural tube defects including spina bifida. Ultrasound examination is performed between 11 weeks and 13 weeks gestational age. Blood tests are drawn after the ultrasound and again later in the between 15 and 21 weeks gestational age. Please let your physician know if you are interested in this testing. It will require an appointment withour industrial engineering technician. This is not an ultrasound performed by a physician in our office during a routine visit. SIGNS AND SYMPTOMS OF LABOR 1. Contractions every 10 minutes or more often 2. Clear, pink, or brownish fluid (water) leaking from vagina 3. Feeling that baby is pushing down, pressure 4. Low, dull backache 5. Cramps that feel like a period 6. Cramps with or without diarrhea If you notice any of the above symptoms, contact our office at [phone] and ask to speak with anurse. After hours, you can call doctors registry at [phone] OR call [facility] at [phone] ask to have the doctor cone runner paged. If you consider this an emergency, dial 3-9-6 or go to your nearest emergency department. NEED HELP? Are you dealing with a violent or abusive relationship? Are you a victim of rape or sexual assult? Call [facility] ([place]) 24 hour Crisis Hotline: 644.427.1664 or 318-621-1320. MANUAL Your Guide to a Healthy manual is now on-line. Visit [email or web address] to download your free copy documented in this encounterMercy [facility]10-17-2023 Miscellaneous Notes* Telephone Encounter - Ally Luna LPN - 01/01/2023 1:37 PM EDT Pt calling back and needing her refill. Please advise. Ally Luna LPN' * Telephone Encounter - CherylJulisaAllycheng SCOTT - 12/31/2022 1:57 PM EDT Pt calling for a refill on her Zofran. Pt pharmacy correct as noted below. Ally Luna SONIA documented in this encounterMercy [facility]10-09-2023 History of Present illness Narrative* Raf Garland MD - 12/24/2022 11:01 AM EDT Patient presents with: Cough: Chest congestion, SOB, chills x2 days HPI: Feeling sick for 3 days. Positive symptoms: Cough, Shortness of breath, Chills, green sputum/drainage, Sore throat, Nasal Congestion, Rhinorrhea, Post nasal drainage, Fever, Chills, Body Aches, Malaise, Fatigue, Negative symptoms: Nausea, Vomiting, Diarrhea, OTC: tylenol Cold Medicine. She is unsure where her inhaler is. Currently 10 weeks . PAST MEDICAL HISTORY Diagnosis Date Anorexia nervosa Asthma Bipolar disorder (HCC) Borderline personality disorder (HCC) Generalized anxiety disorder Headache High risk sexual behavior pt stopped B/C and she is on high risk antipsychotic medication HRP (high risk ) substance abuse/bipolardisorder/personality disorder Menometrorrhagia Nausea and vomiting Opioid dependence (HCC) on suboxone dr perdomo/addiction dr delarosa Patient noncompliance Polysubstance dependence (HCC) heroin, thc, opiates , cocaine Polysubstance dependence (HCC) Subjective visual disturbance Tobacco dependence syndrome MEDICATIONS: Current Outpatient Medications Medication Sig buprenorphine SL (SUBUTEX) 8 mg subl Dissolve under the tongue once daily. 25/iron fum/folic/dha (-1 ORAL) Take by mouth. ondansetron orally disintegrating (ZOFRAN ODT) 4 mg disintegrating tablet Take 1 tablet by mouth every 8 hours as needed. prazosin HCl (PRAZOSIN ORAL) Take 1 mg by mouth once daily. No current facility-administered medications for this visit. ALLERGIES: ALLERGIES Allergen Reactions Augmentin [Amoxicil* Hives [place] [Hydrocodone-* Vomiting Penicillin Hives Tramadol Vomiting VITALS: BP 135/83 Pulse 72 Temp 36.9 C (98.5 F) Resp 20 Wt 74.4 kg (164 lb) LMP 10/15/2022 (ExactDate) SpO2 100% BMI 27.29 kg/m PHYSICAL EXAM: GEN: mildly ill appearing HEENT: PERRL, EOMI, conjunctiva clear Ears: canals clear. TMs without erythema, bulge, or effusion Sinuses: non-tender frontal sinus, non-tender maxillary sinuses Throat: moist mucous membranes, mild erythema, no exudate Neck: supple, no thyromegaly, no lymphadenopathy HEART: regular rate and rhythm, no murmurs LUNGS: clear to auscultation, no wheezes or crackles, no increased WOB; raspy cough ASSESSMENT/PLAN: 1. Acute cough - ICD9: 786.2, ICD10: R05.1 (primary diagnosis) 2. URI, acute - ICD9: 465.9, ICD10: J06.9 - suspect viral URI, differential includes COVID-19. - Discussed supportive care treatment with home isolation, rest, cold medicine, and analgesia. - Red flags to seek further treatment include chest pain, shortness of breath, and lethargy; in theER if severe. - COVID & INFLUENZA A/B NAAT, ROUTINE 3. Asthma with acute exacerbation, unspecified asthma severity, unspecified whether persistent - ICD9: 493.92, ICD10: J45.901 - ALBUTEROL SULFATE HFA 90 MCG/ACTUATION AEROSOL INHALER - INHALATIONAL SPACING DEVICE Raf Garland MD documented in this encounterMercy Health [facility]07-10-2023 Discharge summary Author Feroz Maradiaga [facility] September 24, 2022 5:23pm Note Date/Time September 24, 2022 5:21 pm [facility] Medical Records Department [address] [place] [address] Emergency Department Summary 09/24/22 MR#: [id number] Acct: [id number] Name: CRYSTAL MACHUCA Rep #:[id number] : 1990 32 From: Feroz Maradiaga DO PCP: Dr. Mary Myers MD Status:REG ER Location: ED HPI History of Present Illness Chief Complaint: Dental Narrative Narrative: 32-year-old female with dental pain on the right mandibular region. She states she feels like the pain is radiating into her jaw. She has any trouble swallowing or breathing. No fevers or chills. No nausea or vomiting. Currently she is in [facility]. She states that she hasfound some leftover clindamycin but states its only 1 pill and she is take it twice a day. She does not know what it was for or where it was from. She knowsit was for her. She denies any trauma. She states he has a dentist appointmentnext Saturday. [facility] Medical History Alcohol abuse Allergies Anemia Anxiety Asthma Bipolar 2 disorder Depression Drug abuse Hepatitis B Hx MRSA infection Hx of fracture Hx: UTI (urinary tract infection) Lymphocytic colitis PTSD (post-traumatic stress disorder) Recurrent infections Tumors Home Medications buprenorphine 100 mg/0.5 mL solution,exten.rel.subcutaneous syringe (Sublocade) 100 mg subcut QMONTH 07/16/22 [History Last Taken Unknown] hydroxyzine pamoate 50 mg capsule (Vistaril) 50 mg PO BID PRN 07/16/22 [History Last Taken Unknown] prazosin 1 mg capsule 1 mg PO QHS 07/16/22 [History Last Taken Unknown] gabapentin 100 mg capsule cap PO 07/19/22 [History Last Taken Unknown] olanzapine 10 mg-samidorphan 10 mg tablet (Lybalvi) 1 tab PO 07/19/22 [History Last Taken Unknown] psyllium husk 3.4 gram/5.4 gram oral powder (Metamucil) 1 tbsp PO DAILY #660 grams 08/07/22 [Rx Last Taken Unknown] ondansetron 4 mg disintegrating tablet 4 mg PO Q8H PRN nausea and vomiting #30 tabs 08/08/22 [Rx Last Taken Unknown] clindamycin HCl 150 mg capsule 450 mg (3 x 150 mg) PO TID 10 days #90 caps 09/24/22 [Rx Last Taken Unknown] naproxen 500 mg tablet (Naprosyn) 500 mg PO BID PRN pain #30 tabs 09/24/22 [Rx Last Taken Unknown] Allergy/AdvReac Type Severity Reaction Status Date / Time penicillin G Allergy Intermediate Hives Verified 09/24/22 15:47 augmentin Allergy Intermediate Hives Uncoded 09/14/22 13:22 Family History Mother Anemia Cancer cervical/ovarian Grandmother Asthma Breast cancer Parkinsons Poor mental health Father Arthritis Bowel disease colitis Grandfather Colon cancer Diabetes Other Anxiety Surgical History History of tonsillectomy and adenoidectomy Carver teeth removed Social History household members: other details: [facility] program current occupational status: unemployed Smoking Status: Current every day smoker tobacco type: cigarettes Electronic Cigarette Use: not used alcohol intake: former year quit: 2014 substance use type: marijuana and crack/cocaine what type of physical activity do you participate in: yoga do you feel safe at home: Yes ROS ROS ED Constitutional Constitutional ED: Denies chills, fever(s) or sweats Eyes Eyes: Denies blurry vision or change in vision ENT ENT ED: Reports other Details: Dental pain ; Denies ear pain or sore throat Cardiovascular Cardiovascular: Denies chest pain, palpitations or racing heartbeat Respiratory/Chest Respiratory/Chest: Denies cough, dyspnea or sputum Gastrointestinal Gastrointestinal: Denies abdominal pain, constipation, diarrhea, nausea or vomiting Genitourinary Genitourinary ED: Denies dysuria, hematuria or urinary frequency Musculoskeletal Musculoskeletal: Denies arthralgias, myalgias or neck pain Integumentary Denies abscess, Abrasions or rash Neurologic Neurologic: Denies headache(s), paresthesias or weakness Psychiatric Psychiatric: Denies anxiety, depression, suicidal ideation or suicidal thoughts Endocrine Endocrinology: Denies polydipsia or polyuria EXAM Physical Exam Const Vital Signs: 09/24/22 15:47 Temperature 99 F Temperature Source Temporal Pulse Rate 69 Respiratory Rate 14 Blood Pressure 121/86 H Blood Pressure Mean 97 Pulse Ox 98 Oxygen Delivery Method Room Air Positive well nourished General Appearance ED: NAD HEENT HEENT Narrative: Percussion tenderness of the right premolar. No surrounding edema, erythema, abscess. Negative for trauma or tenderness Mouth ED: Yes oral and palatal mucosa normal, Yes lips normal, Yes tongue normal, Yes salivary gland normal and Yes oral and palatal mucosa abnormal Mouth: oral and palatal mucosa normal, lips normal, tongue normal, salivary gland normal and oral and palatal mucosa abnormal Throat: posterior oropharynx normal Eyes PERRL and EOMs intact bilaterally Chest Wall inspection of chest normal Resp normal respiratory effort Cardio regular rate and regular rhythm Neuro oriented x3 and CN's II-XII intact bilaterally Sensorium / Orientation: alert Psych mental status grossly normal MDM MDM MDM Narrative Medical decision making narrative: Patient presenting with dental pain. Her exam is rather unremarkable other thansome percussion tenderness. She has been on clindamycin states she took 2 dosesof 1 pill which I suspect is 150 mg pill. She is penicillin allergic so I will increase her clindamycin to 450 3 times daily and give her prescription for Naprosyn 500 mg twice daily as needed pain. She is to follow-up with her dentist. Return precautions discussed. Impression: 1 dental pain Discharge Plan Triage Chief Complaint: Dental ED Provider: Feroz Maradiaga Dx/Rx/DC Orders Instructions: ED Dental Pain, ED Dental Cavity Prescriptions: New clindamycin HCl 150 mg capsule 450 mg PO TID 10 Days Qty: 90 0RF naproxen [Naprosyn] 500 mg tablet 500 mg PO BID PRN (Reason: pain) Qty: 30 0RF No Action Lybalvi 10-10 mg tablet 1 tab PO Hold Instructions: Order Changed gabapentin 100 mg capsule PO Sublocade 100 mg/0.5 mL solution, extended rel syringe 100 mg subcut QMONTH prazosin 1 mg capsule 1 mg PO QHS hydroxyzine pamoate [Vistaril] 50 mg capsule 50 mg PO BID PRN Metamucil 3.4 gram/5.4 gram powder 1 tbsp PO DAILY Qty: 660 0RF Rx Instructions: mix into at least 8 oz of water or juice before administering ondansetron 4 mg tablet,disintegrating 4 mg PO Q8H PRN (Reason: nausea and vomiting) Qty: 30 0RF Primary Care Provider: Mary Myers Referrals: Mary Myers MD [Primary Care Provider] - Disposition Disposition: Home, Self Care What to do if you have Problems For any increased pain, shortness of breath, bleeding, nausea or vomiting, chestpain, or any unexpected problems, contact your Primary Care Provider. Call [facility] ([phone]) or report to the closest Emergency Room. Call 911 if necessary. 09/24/22 1723 <Electronically signed by Feroz Maradiaga DO> Cosigner Signature (if applicable): CC: Dr. Mary Myers MD ~ Signed [facility] Work Phone: 1(235) 143-576306-30-2022 History of Past illness Narrative* Problem Noted Date Diagnosed Date Resolved Date Vaginal bleeding affecting early 09/14/2021 12/10/2022 Overview: - vaginal spotting x2 days with lower abdominal cramping - 7w0d by LMP - Rh positive - physical exam benign - no active bleeding - declined medication for pain - quant HCG pending Patient noncompliance 2022 Polysubstance dependence Menometrorrhagia 12/10/2022 documented as of this encounter (statuses as of 12/24/2022) [facility] History of Past illness Narrative* Problem Noted Date Diagnosed Date Resolved Date Vaginal bleeding affecting early 09/14/2021 12/10/2022 Overview: - vaginal spotting x2 days with lower abdominal cramping - 7w0d by LMP - Rh positive - physical exam benign - no active bleeding - declined medication for pain - quant HCG pending Patient noncompliance 2022 Polysubstance dependence Menometrorrhagia 12/10/2022 documented as of this encounter (statuses as of 01/01/2023) [facility] History of Past illness Narrative* Problem Noted Date Diagnosed Date Resolved Date Vaginal bleeding affecting early 09/14/2021 12/10/2022 Overview: - vaginal spotting x2 days with lower abdominal cramping - 7w0d by LMP - Rh positive - physical exam benign - no active bleeding - declined medication for pain - quant HCG pending Patient noncompliance 2022 Polysubstance dependence Menometrorrhagia 12/10/2022 documented as of this encounter (statuses as of 01/07/2023) [facility] History of Past illness Narrative* Problem Noted Date Diagnosed Date Resolved Date Vaginal bleeding affecting early 09/14/2021 12/10/2022 Overview: - vaginal spotting x2 days with lower abdominal cramping - 7w0d by LMP - Rh positive - physical exam benign - no active bleeding - declined medication for pain - quant HCG pending Patient noncompliance 2022 Polysubstance dependence Menometrorrhagia 12/10/2022 documented as of this encounter (statuses as of 01/07/2023) [facility] of Past illness Narrative* Problem Noted Date Diagnosed Date Resolved Date Vaginal bleeding affecting early 09/14/2021 12/10/2022 Overview: - vaginal spotting x2 days with lower abdominal cramping - 7w0d by LMP - Rh positive - physical exam benign - no active bleeding - declined medication for pain - quant HCG pending Patient noncompliance 2022 Polysubstance dependence Menometrorrhagia 12/10/2022 documented as of this encounter (statuses as of 02/22/2023) [facility] of Past illness Narrative* Problem Noted Date Diagnosed Date Resolved Date Vaginal bleeding affecting early 09/14/2021 12/10/2022 Overview: - vaginal spotting x2 days with lower abdominal cramping - 7w0d by LMP - Rh positive - physical exam benign - no active bleeding - declined medication for pain - quant HCG pending Patient noncompliance 2022 Polysubstance dependence Menometrorrhagia 12/10/2022 documented as of this encounter (statuses as of 04/19/2023) [facility] of Past illness Narrative* Problem Noted Date Diagnosed Date Resolved Date Vaginal bleeding affecting early 09/14/2021 12/10/2022 Overview: - vaginal spotting x2 days with lower abdominal cramping - 7w0d by LMP - Rh positive - physical exam benign - no active bleeding - declined medication for pain - quant HCG pending Patient noncompliance 2022 Polysubstance dependence Menometrorrhagia 12/10/2022 documented as of this encounter (statuses as of 04/30/2023) [facility] of Past illness Narrative* Problem Noted Date Diagnosed Date Resolved Date Vaginal bleeding affecting early 09/14/2021 12/10/2022 Overview: - vaginal spotting x2 days with lower abdominal cramping - 7w0d by LMP - Rh positive - physical exam benign - no active bleeding - declined medication for pain - quant HCG pending Patient noncompliance 2022 Polysubstance dependence Menometrorrhagia 12/10/2022 documented as of this encounter (statuses as of 05/01/2023) [facility] of Past illness Narrative* Problem Noted Date Diagnosed Date Resolved Date Vaginal bleeding affecting early 09/14/2021 12/10/2022 Overview: - vaginal spotting x2 days with lower abdominal cramping - 7w0d by LMP - Rh positive - physical exam benign - no active bleeding - declined medication for pain - quant HCG pending Patient noncompliance 2022 Polysubstance dependence Menometrorrhagia 12/10/2022 documented as of this encounter (statuses as of 05/14/2023) [facility] of Past illness Narrative* Problem Noted Date Diagnosed Date Resolved Date Vaginal bleeding affecting early 09/14/2021 12/10/2022 Overview: - vaginal spotting x2 days with lower abdominal cramping - 7w0d by LMP - Rh positive - physical exam benign - no active bleeding - declined medication for pain - quant HCG pending Patient noncompliance 2022 Polysubstance dependence Menometrorrhagia 12/10/2022 documented as of this encounter (statuses as of 05/28/2023) [facility] of Past illness Narrative* Problem Noted Date Diagnosed Date Resolved Date Vaginal bleeding affecting early 09/14/2021 12/10/2022 Overview: - vaginal spotting x2 days with lower abdominal cramping - 7w0d by LMP - Rh positive - physical exam benign - no active bleeding - declined medication for pain - quant HCG pending Patient noncompliance 2022 Polysubstance dependence Menometrorrhagia 12/10/2022 documented as of this encounter (statuses as of 05/28/2023) [facility] of Past illness Narrative* Problem Noted Date Diagnosed Date Resolved Date Vaginal bleeding affecting early 09/14/2021 12/10/2022 Overview: - vaginal spotting x2 days with lower abdominal cramping - 7w0d by LMP - Rh positive - physical exam benign - no active bleeding - declined medication for pain - quant HCG pending Patient noncompliance 2022 Polysubstance dependence Menometrorrhagia 12/10/2022 documented as of this encounter (statuses as of 06/11/2023) [facility] of Past illness Narrative* Problem Noted Date Diagnosed Date Resolved Date Vaginal bleeding affecting early 09/14/2021 12/10/2022 Overview: - vaginal spotting x2 days with lower abdominal cramping - 7w0d by LMP - Rh positive - physical exam benign - no active bleeding - declined medication for pain - quant HCG pending Patient noncompliance 2022 Polysubstance dependence Menometrorrhagia 12/10/2022 documented as of this encounter (statuses as of 06/24/2023) [facility] of Past illness Narrative* Problem Noted Date Diagnosed Date Resolved Date Vaginal bleeding affecting early 09/14/2021 12/10/2022 Overview: - vaginal spotting x2 days with lower abdominal cramping - 7w0d by LMP - Rh positive - physical exam benign - no active bleeding - declined medication for pain - quant HCG pending Patient noncompliance 2022 Polysubstance dependence Menometrorrhagia 12/10/2022 documented as of this encounter (statuses as of 06/27/2023) [facility] of Past illness Narrative* Problem Noted Date Diagnosed Date Resolved Date Vaginal bleeding affecting early 09/14/2021 12/10/2022 Overview: - vaginal spotting x2 days with lower abdominal cramping - 7w0d by LMP - Rh positive - physical exam benign - no active bleeding - declined medication for pain - quant HCG pending Patient noncompliance 2022 Polysubstance dependence Menometrorrhagia 12/10/2022 documented as of this encounter (statuses as of 06/28/2023) [facility] History of Past illness Narrative* Problem Noted Date Diagnosed Date Resolved Date Vaginal bleeding affecting early 09/14/2021 12/10/2022 Overview: - vaginal spotting x2 days with lower abdominal cramping - 7w0d by LMP - Rh positive - physical exam benign - no active bleeding - declined medication for pain - quant HCG pending Patient noncompliance 2022 Polysubstance dependence Menometrorrhagia 12/10/2022 documented as of this encounter (statuses as of 07/03/2023) [facility] Diagnosis Colitis- Primary Other and unspecified noninfectious gastroenteritis and colitis Ischemic colitis (HCC) Unspecified vascular insufficiency of intestine Elevated lactic acid level Other nonspecific abnormal serum enzyme levels Bacterial vaginosis Vaginitis and vulvovaginitis, unspecified documented in this encounter [facility] [employer] Work Phone: evaluation note* Diagnosis Onset Date Resolution Status Lymphocytic colitis acute LLQ abdominal pain noneactiv e Establishing care with new doctor, encounter for noneactive Withdrawal symptoms, drug or narcotic noneactive Drug abuse in remission none active Smoker noneactive [facility] Work Phone: Evaluation note* Diagnosis Onset Date Resolution Status Lymphocytic colitis acute LLQ abdominal pain noneactiv e Establishing care with new doctor, encounter for noneactive Withdrawal symptoms, drug or narcotic noneactive Drug abuse in remission none active Smoker noneactive Hepatitis B acute Lymphocytic colitis acute [facility] Work Phone: Evaluation note* Diagnosis Onset Date Resolution Status Hepatitis B acute Lymphocytic colitis acute [facility] Work Phone: Evaluation note* Diagnosis Acute cough- Primary URI, acute Acute upper respiratory infections of unspecified site Asthma with acute exacerbation, unspecified asthma severity, unspecified whether persistent [facility]* Diagnosis High-risk in first trimester- Primary complicated by subutex maintenance, antepartum (HCC) Penicillin allergy Personal history of allergy to penicillin Tobacco use disorder Nausea and vomiting in Unspecified vomiting of , unspecified as to episode of care Heartburn during in third trimester Family history of thalassemia Family history of other blood disorders [facility] Diagnosis Encounter for (NT) nuchal translucency scan- Primary Other specified screening 12 weeks gestation of state, incidental [facility] Diagnosis 18 weeks gestation of - Primary state, incidental High-risk in second trimester [facility] Diagnosis Supervision of high risk in third trimester- Primary Unspecified high-risk complicated by subutex maintenance, antepartum (HCC) 28 weeks gestation of state, incidental Need for vaccination Need for prophylactic vaccination and inoculation against unspecified single disease General counseling and advice for contraceptive management Other general counseling and advice for contraceptive management documented in this encounter [facility] note* Diagnosis High-risk in third trimester- Primary 30 weeks gestation of state, incidental Pain in left hip Pain in joint, pelvic region and thigh [facility]* Diagnosis Encounter for ultrasound to assess growth- Primary complicated by subutex maintenance, antepartum (HCC) Supervision of high risk in third trimester Unspecified high-risk 32 weeks gestation of state, incidental [facility] Diagnosis High-risk in third trimester- Primary Anemia complicating , third trimester complicated by subutex maintenance, antepartum (HCC) 32 weeks gestation of state, incidental Maternal obesity syndrome in third trimester Obesity, Class I, BMI 30-34.9 Obesity, unspecified [facility]* Diagnosis 34 weeks gestation of - Primary state, incidental High-risk in third trimester Anemia complicating , third trimester complicated by subutex maintenance, antepartum (HCC) [facility]* Diagnosis Encounter for ultrasound to check growth- Primary Encounter for routine screening for malformation using ultrasonics complicated by subutex maintenance, antepartum (HCC) Polyhydramnios in third trimester complication, single or unspecified fetus 36 weeks gestation of state, incidental [facility]* Diagnosis 36 weeks gestation of - Primary state, incidental High-risk in third trimester Anemia complicating , third trimester complicated by subutex maintenance, antepartum (HCC) [facility]* Diagnosis 37 weeks gestation of - Primary state, incidental High-risk in third trimester [facility]* Diagnosis High-risk in third trimester- Primary Anemia complicating , third trimester 38 weeks gestation of state, incidental Supervision of other high risk pregnancies, third trimester Tobacco use disorder complicated by subutex maintenance, antepartum (HCC) Bipolar disorder, current episode depressed, severe, with psychotic features (HCC) Bipolar I disorder, most recent episode (or current) depressed, severe, specified as with psychotic behavior History of posttraumatic stress disorder (PTSD) Polyhydramnios in third trimester complication, single or unspecified fetus [facility]* Diagnosis Onset Date Resolution Status Anemia acute Anxiety acute Asthma acute Bipolar 2 disorder acute Care and examination of lactating mother acute delivery delivered acute Depression acute Drug abuse acute Poor venous access acute with 39 completed weeks gestation acute PTSD (post-traumatic stress disorder) acute [facility] Work Phone: Evaluation note* Diagnosis Bipolar disorder, current episode depressed, severe, with psychotic features (HCC)- Primary Bipolar I disorder, most recent episode (or current) depressed, severe, specified as with psychotic behavior Status post section Other postprocedural status Tobacco use disorder [facility]* Diagnosis Localized swelling of left lower leg- Primary [facility] care and examination- Primary Routine follow-up Encounter for lithium monitoring Encounter for therapeutic drug monitoring History of section Other postprocedural status History of opioid abuse (HCC) Opioid abuse, in remission [facility] Diagnosis Sinobronchitis- Primary Unspecified sinusitis (chronic) Subacute cough Cough Subacute cough Cough [facility] Diagnosis Subacute cough Cough [facility] Diagnosis Upper back pain- Primary Acute left-sided low back pain with left-sided sciatica Screening for cardiovascular condition Screening for other and unspecified cardiovascular conditions Hyperglycemia Other abnormal glucose Iron deficiency anemia secondary to inadequate dietary iron intake Vitamin D deficiency Unspecified vitamin D deficiency Obesity, Class I, BMI 30-34.9 Obesity, unspecified [facility]* Diagnosis Upper back pain- Primary Left-sided low back pain with left-sided sciatica, unspecified chronicity Acute left-sided low back pain with left-sided sciatica Neck pain on left side Cervicalgia Cervical radiculopathy Brachial neuritis or radiculitis nos documented [facility]* Diagnosis Left-sided low back pain with left-sided sciatica, unspecified chronicity Upper back pain [facility]* Diagnosis Neck pain on left side Cervicalgia [facility]* Diagnosis Wellness examination- Primary Screening for depression Encounter for screening examination for other mental health and behavioral disorders Iron deficiency anemia secondary to inadequate dietary iron intake Hand swelling Swelling of limb Mixed hyperlipidemia Upper back pain Colitis Other and unspecified noninfectious gastroenteritis and colitis Acute left-sided low back pain with left-sided sciatica Vitamin D deficiency Unspecified vitamin D deficiency Encounter for immunization Need for other specified prophylactic vaccination against single bacterial disease Obesity, Class II, BMI 35-39.9 Obesity, unspecified [facility]* Diagnosis Employee exposure to blood- Primary Personal history of contact with and (suspected) exposure to potentially hazardous body fluids [facility]* Diagnosis Left-sided low back pain with left-sided sciatica, unspecified chronicity- Primary Neck pain on left side Cervicalgia Cervical radiculopathy Brachial neuritis or radiculitis nos documented [facility]* Diagnosis Left-sided low back pain with left-sided sciatica, unspecified chronicity- Primary Neck pain on left side Cervicalgia documented [facility]* Diagnosis Left-sided low back pain with left-sided sciatica, unspecified chronicity- Primary Neck pain on left side Cervicalgia Cervical radiculopathy Brachial neuritis or radiculitis nos [facility]* Diagnosis Neck pain on left side- Primary Cervicalgia Cervical radiculopathy Brachial neuritis or radiculitis nos documented [facility]* Diagnosis Left-sided low back pain with left-sided sciatica, unspecified chronicity- Primary Neck pain on left side Cervicalgia Cervical radiculopathy Brachial neuritis or radiculitis nos documented [facility]* Diagnosis Left-sided low back pain with left-sided sciatica, unspecified chronicity- Primary Bilateral hip pain Pain in joint, pelvic region and thigh Neck pain on left side Cervicalgia Spinal stenosis of lumbar region without neurogenic claudication Spinal stenosis, lumbar region, without neurogenic claudication documented [facility]* Diagnosis Bilateral hip pain Pain in joint, pelvic region and thigh [facility]* Diagnosis Spinal stenosis of cervical region- Primary Spinal stenosis in cervical region [facility]* Diagnosis Left-sided low back pain with left-sided sciatica, unspecified chronicity- Primary Neck pain on left side Cervicalgia Cervical radiculopathy Brachial neuritis or radiculitis nos documented [facility]* Diagnosis Mass of leg, right [facility]* Diagnosis Abnormal TSH- Primary Other abnormal clinical finding Hypothyroidism, unspecified type RUQ pain Abdominal pain, right upper quadrant Leg mass, right [facility]* Diagnosis Spinal stenosis of cervical region Spinal stenosis in cervical region documented [facility]* Diagnosis Left-sided low back pain with left-sided sciatica, unspecified chronicity- Primary Neck pain on left side Cervicalgia Spinal stenosis of lumbar region with neurogenic claudication Spinal stenosis, lumbar region, with neurogenic claudication [facility]* Diagnosis RUQ pain Abdominal pain, right upper quadrant [facility]* Diagnosis Headaches- Primary Abnormal TSH Other abnormal clinical finding Heat intolerance Unspecified effects of heat and light Dry mouth Disturbance of salivary secretion Insomnia, unspecified type Mass of leg, right Mass of leg, right [facility]* Diagnosis Abnormal TSH Other abnormal clinical finding Hypothyroidism, unspecified type [facility]* Diagnosis Elevated TSH- Primary Nonspecific abnormal results of thyroid function study Class 3 severe obesity with body mass index (BMI) of 40.0 to 44.9 in adult ([facility]) Lymphocytic colitis Other and unspecified noninfectious gastroenteritis and colitis Mild intermittent asthma without complication ([facility]) Unspecified asthma Tobacco use disorder [facility]* Diagnosis Symptomatic varicose veins of both lower extremities- Primary Varicose veins of lower extremities with other complications Leg mass, right Venous (peripheral) insufficiency Unspecified venous (peripheral) insufficiency [facility]* Diagnosis Symptomatic varicose veins of both lower extremities- Primary Varicose veins of lower extremities with other complications [facility]* Diagnosis Severe obesity (BMI >= 40) ([facility])- Primary Morbid obesity Anxiety and depression Dysthymic disorder Dietary counseling Dietary surveillance and counseling Exercise counseling [facility]* Diagnosis Mild intermittent asthma without complication ([facility]) Unspecified asthma [facility]* Diagnosis Hypothyroidism, unspecified type- Primary [facility]* Diagnosis Symptomatic varicose veins of both lower extremities- Primary Varicose veins of lower extremities with other complications [facility]* Diagnosis Spinal stenosis of lumbar region with neurogenic claudication Spinal stenosis, lumbar region, with neurogenic claudication [facility]* Diagnosis Left-sided low back pain with left-sided sciatica, unspecified chronicity- Primary Spinal stenosis of lumbar region with neurogenic claudication Spinal stenosis, lumbar region, with neurogenic claudication Symptomatic varicose veins of both lower extremities- Primary Varicose veins of lower extremities with other complications [facility]* Diagnosis Hand eczema- Primary Contact dermatitis and other eczema, due to unspecified cause Symptomatic varicose veins of both lower extremities- Primary Varicose veins of lower extremities with other complications [facility] Diagnosis Symptomatic varicose veins of both lower extremities- Primary Varicose veins of lower extremities with other complications [facility] Diagnostic Procedure Only (Routine) - Authorized Specialty Diagnoses / Procedures Referred By Contac t Referred To Contact [facility] Diagnoses High-risk in first trimester complicated by subutex maintenance, antepartum (HCC) Procedures OBSTETRIC ULTRASOUND WHI US PREG UTERUS AFTER 1ST TRIMEST GESTATION Brooke Suazo MD [address] [place] [address] [facility] [address] [place] [address] Referral ID Status Reason Start Date Expiration Date Visits Requested Visits Authorized [id number] Authorized Auto-Generat ed Referral 3 01/07/2024 1 1 * Consult, Test, Treat (Routine) - Authorized Specialty Diagnoses / Procedures Referred By Contac t Referred To Contact Allergy Diagnoses High-risk in first trimester Penicillin allergy Procedures CONSULT TO ALLERGY/IMMUNOLOGY OFFICE/OUTPATIENT [facility] 60-74 MINUTES Brooke Suazo MD [address] [place] [address] Referral ID Status Reason Start Date Expiration Date Visits Requested Visits Authorized [id number] Authorized PCP Requested Referral 3 01/07/2024 1 1 * Diagnostic Procedure Only (Routine) - Pending Review Specialty Diagnoses / Procedures Referred By Contac t Referred To Contact [facility] Diagnoses High-risk in first trimester complicated by subutex maintenance, antepartum (HCC) Procedures OBSTETRIC ULTRASOUND WHI US PREG UTERUS AFTER 1ST TRIMEST GESTATION Brooke Suazo MD [address] [place] [address] [address] Referral ID Status Reason Start Date Expiration Date Visits Requested Visits Authorized [id number] Pending Review Auto-Generat ed Referral 01/07/2024 1 1 [facility] for referral (narrative)* Diagnostic Procedure Only (Routine) - Authorized Specialty Diagnoses / Procedures Referred By Contac t Referred To Contact [facility] Diagnoses complicated by subutex maintenance, antepartum (HCC) Supervision of high risk in third trimester Procedures OBSTETRIC ULTRASOUND WHI US PREG UTERUS AFTER 1ST TRIMEST GESTATION Brooke Suazo MD [address] [place] [address] [address] Referral ID Status Reason Start Date Expiration Date Visits Requested Visits Authorized [id number] Authorized Auto-Generat ed Referral 04/30/2023 04/29/2024 [address] [facility] for referral (narrative)* Diagnostic Procedure Only (Routine) - Pending Review Specialty Diagnoses / Procedures Referred By Contac t Referred To Contact [facility] Diagnoses complicated by subutex maintenance, antepartum (HCC) Procedures OBSTETRIC ULTRASOUND WHI US PREG UTERUS AFTER 1ST TRIMEST GESTATION Donna Anderson MD [address] [place] [address] [address] Referral ID Status Reason Start Date Expiration Date Visits Requested Visits Authorized [id number] Pending Review Auto-Generat ed Referral 05/28/2023 05/27/2024 1 1 [facility] for referral (narrative)* Outpatient Procedure (Routine) - Pending Review Specialty Diagnoses / Procedures Referred By Contac t Referred To Contact [facility] Diagnoses High-risk in third trimester complicated by subutex maintenance, antepartum (HCC) 32 weeks gestation of Maternal obesity syndrome in third trimester Obesity, Class I, BMI 30-34.9 Procedures NON-STRESS TEST NON-STRESS TEST Brooke Suazo MD [address] [place] [address] [facility] [address] [place] [address] Referral ID Status Reason Start Date Expiration Date Visits Requested Visits Authorized [id number] Pending Review Auto-Generat ed Referral 05/28/2023 05/27/2024 4 1 [facility] for referral (narrative)* Outpatient Procedure (Urgent) - Closed Specialty Diagnoses / Procedures Referred By Contac t Referred To Contact [facility] Diagnoses Localized swelling of left lower leg Procedures US LEG VEIN DVT UNL VAS LAB DUP-SCAN XTR VEINS UNILATERAL/LIMITED STUDY Yoselyn Chandra APRN.[employer] [address] [place] [address] [facility] [address] [place] [address] Referral ID Status Reason Start Date Expiration Date V isits Requested Visits Authorized [id number] Closed Auto-Generate d Referral 08/27/2023 08/26/2024 1 1 [facility] for visit Narrative* Diagnostic Procedure Only (Routine) - Closed Specialty Diagnoses / Procedures Referred By Contac t Referred To Contact [facility] Diagnoses Upper back pain Procedures XR THORACIC GENERAL 3V AP/LAT/SWIMMERS RADEX SPINE THORACIC 3 VIEWS Mikhail Mckeon MD [address] [place] [address] Phone: tel: fax: [place] [address] Referral ID Status Reason Start Date Expiration Date V isits Requested Visits Authorized [id number] Closed Auto-Generate d Referral 04/30/2024 05/30/2025 1 1 [facility] for visit Narrative* Diagnostic Procedure Only (Routine) - Closed Specialty Diagnoses / Procedures Referred By Contac t Referred To Contact [facility] Diagnoses Neck pain on left side Procedures XR CERV OTHER 4V AP/LAT/OBL RADEX SPINE CERVICAL 4 OR 5 VIEWS Mikhail Mckeon MD [address] [place] [address] Phone: tel: fax: [place] [address] Referral ID Status Reason Start Date Expiration Date V isits Requested Visits Authorized [id number] Closed Auto-Generate d Referral 05/01/2024 05/31/2025 1 1 [facility] for visit Narrative* Diagnostic Procedure Only (Routine) - Closed Specialty Diagnoses / Procedures Referred By Contac t Referred To Contact [facility] Diagnoses Bilateral hip pain Procedures XR HIP BILATERAL 5V PEL/AP/LAT EACH HIP RADEX HIPS BILATERAL WITH PELVIS MINIMUM 5 VIEWS Mikhail Mckeon MD [address] [place] [id number] Phone: tel: fax: [place] [address] Referral ID Status Reason Start Date Expiration Date V isits Requested Visits Authorized [id number] Closed Auto-Generate d Referral 07/14/2024 08/13/2025 1 1 [facility] for visit Narrative* Diagnostic Procedure Only (Routine) - Closed Specialty Diagnoses / Procedures Referred By Contac t Referred To Contact [facility] Diagnoses Mass of leg, right Procedures US EXTREMITY MASS/FLUID COLLECTION RIGHT Amilcar Rivera PA-C [address] [place] [address] Phone: tel: fax: [place] [address] Referral ID Status Reason Start Date Expiration Date V isits Requested Visits Authorized [id number] Closed Auto-Generate d Referral 08/05/2024 09/04/2025 1 1 [facility] for visit Narrative* MRI/CT (Routine) - Closed Specialty Diagnoses / Procedures Referred By Contac t Referred To Contact [facility] Diagnoses Spinal stenosis of cervical region Procedures MRI CERVICAL SPINE WO IVCON MRI SPINAL CANAL CERVICAL W/O CONTRAST MATRL Mikhail Mckeon MD [address] [facility] [place] [address] Phone: tel: fax: [place] [address] Referral ID Status Reason Start Date Expiration Date V isits Requested Visits Authorized [id number] Closed Auto-Generat ed Referral Clearance Not Met - Admin/Chairm an/Director Advise to Postpone/Res chedule or Not Proceed 07/22/2024 09/20/2024 1 1 [facility] MRI/CT (Routine) - Closed Specialty Diagnoses / Procedures Referred By Contac t Referred To Contact [facility] Diagnoses Spinal stenosis of lumbar region with neurogenic claudication Procedures MRI LUMBAR SPINE WO IVCON MRI SPINAL CANAL LUMBAR W/O CONTRAST MATERIAL Mikhail Mckeon MD [address] [facility] [place] [address] Phone: tel: fax: [place] [address] Referral ID Status Reason Start Date Expiration Date V isits Requested Visits Authorized [id number] Closed Auto-Generate d Referral 10/30/2024 12/29/2024 1 1 [facility] Summary Purpose Family History No Family History Records Found Relationship Condition Age at Onset Recorded Date/T kathrine Not Specified Anxiety Unknown mother Anemia Unknown Malignant neoplasm Unknown grandmother Asthma Unknown Malignant neoplasm of breast Unknown Parkinson's disease Unknown Poor mental health Unknown father Arthritis Unknown Disorder of intestine Unknown grandfather Malignant neoplasm of colon Unknown Diabetes mellitus Unknown Advance Directives No Advanced Directives Records FoundDocuments on File Type Date Recorded 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 Advance Directives and Livin g Will Advance Directives and Livin g Will 09/10/2018 7:30 AM Power of Diet Aide Latest Code Status on File Code Status Date Activated Date Inactivated Comments Full Code 12/11/2017 4:13 PM 12/17/2017 1:36 PM Full Code 12/19/2016 8:06 PM 12/21/2016 2:56 PM Documents on File Type Date Recorded 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 ACP-Advance Directive ACP-Advance Directive 09/10/2018 7:30 AM ACP-Power of Diet Aide Latest Code Status on File Code Status Date Activated Date Inactivated Comments Full Code 11/27/2019 11:57 AM Full Code 11/27/2019 10:45 AM 11/27/2019 11:56 AM Full Code 12/11/2017 4:13 PM 12/17/2017 1:36 PM Full Code 12/19/2016 8:06 PM 12/21/2016 2:56 PM Documents on File Type Date Recorded 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 ACP-Advance Directive ACP-Advance Directive 09/10/2018 7:30 AM C opies of AD info sheets ACP-Power of Diet Aide Latest Code Status on File Code Status Date Activated Date Inactivated Comments Full Code 09/02/2020 11:15 PM Full Code 11/27/2019 11:57 AM 11/28/2019 7:19 PM Latest Code Status on File Code Status Date Activated Date Inactivated Comments Full Code 09/02/2020 11:15 PM 09/03/2020 3:47 PM Advance Directive Response Recorded Date/ Time Living Will No July 19, 2022 1: 30am Power of Diet Aide No July 19, 2022 1:30am Advance Directive Response Recorded Date/ Time Living Will No September 24, 2022 4:35pm Power of Diet Aide No September 24 4:35pm Advance Directive Response Recorded Date/ Time Living Will No October 17, 2022 12:01pm Power of Diet Aide No October 17 12:01pm Advance Directive Response Recorded Date/ Time Living Will No July 16, 2023 8:49am Power of Diet Aide No July 15 8:49am Hospital Course Note Send Summary: Discharge Summ [place] Providers: Provider RoleProvider Name Teresa Jara Razia PrimaryTeresa Gongora Note Recipients: Janny Moncada MD Discharge: Summary: Admission Date: .18-Jul-2018 14:42:00 Discharge Date: 22-Jul-2018 Attending Physician at Discharge: Janny Moncada Admission Reason: Depression and Suicidal Ideation(1) Final Discharge Diagnoses: Bipolar I disorder, most recent episode depressed, severe without psychotic features Procedures: none Condition at Discharge: Satisfactory Disposition at Discharge: .Home Hospital Course: pt felt improved wth resumption of meds denies suicidal thoughts mood stable Discharge Information: and Continuing Care: Discharge Instructions: f/u iam Doyle 07/28 Follow Up Appointments: Follow-Up Appointment 01: Physician/Dept/Service: Vivek intake appointment Reason for Referral: Psychiatry, Counseling, meds Scheduled Date/Time: 28-Jul-2018 14:30 Location: [address] [place] [address] Gonsalo (more content not included)... History of Present Illness * Natalia Kline MD - 11/28/2019 11:00 AM EDT The patient decided to leave against medical advice, because she "wants to go home," she stated shedoes not feel that she wants to stay for the prescribed methadone treatment to avoid withdrawal from Heroin or be referred to a treatment program at this time. She was encouraged to stay for treatment and declines. It was conveyed to her that we are concerned about the risks of substance use and/orwithdrawal but understand her desire to leave and that we care about her well being and want her harvinder safe and feel she would be safer staying. Initially she declined to wait to speak with the social insurance administrator, but was encouraged to at least talk with social work about her options for opioid/drug addiction treatment program and she did speak with social insurance administrator, however still wants to go home against medical advice. She has normal mental status and adequate capacity to make medical decisions. The patient refuses to stay in the hospital and wants to be discharged. The risks have been explained to the patient, including worsening illness, chronic pain, permanent disability, and . The benefits of admission have also been explained, including the availability and proximity of nurses, physicians, monitoring, diagnostic testing, and treatment. The patient was able to understand and state the risks and benefits of hospital admission. This waswitnessed by nurse Hope and me. She had the opportunity to ask questions about her medical condition. The patient was treated to the extent that she would allow, and knows that she may return for care at any time. Follow up has been discussed and arranged with [facility] where she has been established for care previously. She indicated she would be back to visit the baby. She and her significant other were undecided about circumcision for their baby so they were given a handout from [employer] on the risks and benefitsof circumcision and they are aware they can return to sign consent for the procedure over the next few days. [facility] FACOG OB Hospitalist * Merrick Soto MD - 11/28/2019 8:36 AM EDT PROGRESS NOTE DAY 1 Pt is doing well. Pt is ambulating and tolerating diet. plans to bottle feed Lochia wnl History of heroine abuse , mild withdrawal symptoms this AM . Patient had received 20 mg yesterday at PM which managed to control her symptoms . BP 121/70 Pulse 58 Temp 97.9 F (36.6 C) (Oral) Resp 20 Ht 5' 4" (1.626 m) Wt 185 lb (83.9kg) LMP 12/02/2018 (Approximate) SpO2 100% Unknown BMI 31.76 kg/m GENERAL APPEARANCE: alert, well appearing, in mild distress due to withdrawal . UTERUS : normal size, well involuted, firm, non-tender Labs: No results found. Results for orders placed or performed during the hospital encounter of 11/27/19 Comprehensive metabolic panel Result Value Ref Range Sodium 134 (L) 135 - 144 mEq/L Potassium 4.0 3.4 - 4.9 mEq/L Chloride 100 95 - 107 mEq/L CO2 17 (L) 20 - 31 mEq/L Anion Gap 17 (H) 9 - 15 mEq/L Glucose 112 (H) 70 - 99 mg/dL BUN 7 6 - 20 mg/dL CREATININE 0.57 0.50 - 0.90 mg/dL GFR Non- >60.0 >60 GFR >60.0 >60 Calcium 9.4 8.5 - 9.9 mg/dL Total Protein 7.0 6.3 - 8.0 g/dL Alb 3.0 (L) 3.5 - 4.6 g/dL Total Bilirubin 0.3 0.2 - 0.7 mg/dL Alkaline Phosphatase 230 (H) 40 - 130 U/L ALT 8 0 - 33 U/L AST 15 0 - 35 U/L Globulin 4.0 (H) 2.3 - 3.5 g/dL CBC auto differential Result Value Ref Range WBC 19.3 (H) 4.8 - 10.8 K/uL RBC 3.71 (L) 4.20 - 5.40 M/uL Hemoglobin 9.6 (L) 12.0 - 16.0 g/dL Hematocrit 29.7 (L) 37.0 - 47.0 % MCV 80.1 (L) 82.0 - 100.0 fL MCH 25.9 (L) 27.0 - 31.3 pg MCHC 32.3 (L) 33.0 - 37.0 % RDW 15.4 (H) 11.5 - 14.5 % Platelets 329 130 - 400 K/uL PLATELET SLIDE REVIEW Normal Neutrophils % 78.0 % Lymphocytes % 11.0 % Monocytes % 7.7 % Eosinophils % 3.0 % Basophils % 0.7 % Neutrophils Absolute 15.2 (H) 1.4 - 6.5 K/uL Lymphocytes Absolute 2.1 1.0 - 4.8 K/uL Monocytes Absolute 1.5 (H) 0.2 - 0.8 K/uL Eosinophils Absolute 0.6 0.0 - 0.7 K/uL Basophils Absolute 0.0 0.0 - 0.2 K/uL Myelocyte Percent 1 % Vacuolated Neutrophils Present Anisocytosis 1+ Microcytes 1+ Urinalysis Result Value Ref Range Color, UA DARK YELLOW (A) Straw/Yellow Clarity, UA CLOUDY (A) Clear Glucose, Ur Negative Negative mg/dL Bilirubin Urine Negative Negative Ketones, Urine TRACE (A) Negative mg/dL Specific Entiat, UA 1.020 1.005 - 1.030 Blood, Urine SMALL (A) Negative pH, UA 8.0 5.0 - 9.0 Protein, UA Negative Negative mg/dL Urobilinogen, Urine 1.0 <2.0 E.U./dL Nitrite, Urine Negative Negative Leukocyte Esterase, Urine Negative Negative Rubella antibody, IgG Result Value Ref Range Rubella Antibody IgG 94.1 IU/mL HBSAG Result Value Ref Range Hep B S Ag Interp Non-reactive DRUG SCREEN MULTI URINE Result Value Ref Range Amphetamine Screen, Urine Neg Negative <1000 ng/mL Barbiturate Screen, Ur Neg Negative < 200 ng/mL Benzodiazepine Screen, Urine Neg Negative < 200 ng/mL Cannabinoid Scrn, Ur POSITIVE (A) Negative < 50 ng/mL Cocaine Metabolite Screen, Urine POSITIVE (A) Negative < 300 ng/mL Opiate Scrn, Ur POSITIVE (A) Negative < 300 ng/mL PCP Screen, Urine Neg Negative < 25 ng/mL Methadone Screen, Urine Neg Negative <300 ng/mL Propoxyphene Scrn, Ur Neg Negative <300 ng/mL Oxycodone Urine Neg Negative <100 ng/mL Drug Screen Comment: see below RPR Reflex to Titer and TPPA Result Value Ref Range RPR Non-reactive Non-reactive Microscopic Urinalysis Result Value Ref Range Bacteria, UA Negative Negative /HPF Hyaline Casts, UA 1-3 0 - 5 /HPF WBC, UA 0-2 0 - 5 /HPF RBC, UA 10-20 (A) 0 - 5 /HPF Epithelial Cells, UA 0-2 0 - 5 /HPF CBC auto differential Result Value Ref Range WBC 19.8 (H) 4.8 - 10.8 K/uL RBC 3.45 (L) 4.20 - 5.40 M/uL Hemoglobin 8.9 (L) 12.0 - 16.0 g/dL Hematocrit 27.5 (L) 37.0 - 47.0 % MCV 79.7 (L) 82.0 - 100.0 fL MCH 25.8 (L) 27.0 - 31.3 pg MCHC 32.3 (L) 33.0 - 37.0 % RDW 15.6 (H) 11.5 - 14.5 % Platelets 302 130 - 400 K/uL Neutrophils % 72.9 % Lymphocytes % 20.4 % Monocytes % 5.6 % Eosinophils % 0.6 % Basophils % 0.5 % Neutrophils Absolute 14.4 (H) 1.4 - 6.5 K/uL Lymphocytes Absolute 4.0 1.0 - 4.8 K/uL Monocytes Absolute 1.1 (H) 0.2 - 0.8 K/uL Eosinophils Absolute 0.1 0.0 - 0.7 K/uL Basophils Absolute 0.1 0.0 - 0.2 K/uL TYPE AND SCREEN Result Value Ref Range ABO/Rh O POS Antibody Screen NEG 29 y.o. now P s/p vaginal delivery doing well PPD#1 with Hx of heroine abuse. Cannot take suboxone , due to severe withdrawal symptoms according to patient Continue methadone 20 mg po BID . Social work consult . Needs to follow at drug rehab for narcotic abuse. Otherwise routine care. Merrick Soto M.D., F.A.C.O.G documented in this encounter Assessments Diagnosis Drug abuse during (HCC) High-risk , third trimester Bipolar 1 disorder (HCC) Bipolar I disorder, most recent episode (or current) unspecified Positive urine drug screen Nonspecific abnormal toxicological findings Opiate abuse, continuous (HCC) Opioid abuse, continuous Cannabis abuse Cannabis abuse, unspecified Cocaine abuse affecting in third trimester (HCC) Vaginal delivery Normal delivery Left against medical advice Surgical or other procedure not carried out because of patient's decision Hx of drainage of abscess Personal history of surgery to other organs Chief Complaint and Reason for Visit Chief Complaint 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 FAMILY HX OVARIAN CANCER LLQ ABD PAIN, HX LYMPHOCYTIC COLITIS Consult DENTAL Reason for Visit Lymphocytic colitis LLQ abdominal pain Establishing care with new doctor, encounter for Withdrawal symptoms, drug or narcotic Drug abuse in remission Smoker Hepatitis B Lymphocytic colitis Chief Complaint FAMILY HX OVARIAN CA NCER LLQ ABD PAIN, HX LYMPHOCYTIC COLITIS Consult DENTAL ABDOMINAL PAIN BMP, LITHIUM, TSH Reason for Visit Hepatitis B Lymphocytic colitis Chief Complaint PRIMARY INDUCTION Reason for Visit Anemia Anxiety Asthma Bipolar 2 disorder Care and examination of lactating mother delivery delivered Depression Drug abuse Poor venous access with 39 completed weeks gestation PTSD (post-traumatic stress disorder) Health Concerns Problem Noted Date Diagnosed Date [facility] Education - [facility] 12/10/2022 Education - [place] 12/10/2022 Problem Noted Date Diagnosed Date [facility] Education - [facility] 12/10/2022 Education - [place] 12/10/2022 Problem Noted Date Diagnosed Date [facility] Education - [facility] 12/10/2022 Education - [place] 12/10/2022 Problem Noted Date Diagnosed Date [facility] Education - [facility] 12/10/2022 Education - [place] 12/10/2022 Problem Noted Date Diagnosed Date [facility] Education - [facility] 12/10/2022 Education - [place] 12/10/2022 Problem Noted Date Diagnosed Date [facility] Education - [facility] 12/10/2022 Education - [place] 12/10/2022 Problem Noted Date Diagnosed Date [facility] Education - [facility] 12/10/2022 Education - [place] 12/10/2022 Problem Noted Date Diagnosed Date [facility] Education - [facility] 12/10/2022 Education - [place] 12/10/2022 Active Problems Noted Date Diagnosed Date [facility] Education - [facility] 12/10/2022 Education - [place] 12/10/2022 Active Problems Noted Date Diagnosed Date [facility] - [facility] 12/10/2022 Education - [place] 12/10/2022 Active Problems Noted Date Diagnosed Date [facility] Education - [facility] 12/10/2022 Education - [place] 12/10/2022 Active Problems Noted Date Diagnosed Date [facility] Education - [facility] 12/10/2022 Education - [place] 12/10/2022 Active Problems Noted Date Diagnosed Date [facility] Education - [facility] 12/10/2022 Education - [place] 12/10/2022 Active Problems Noted Date Diagnosed Date [facility] Education - [facility] 12/10/2022 Education - [place] 12/10/2022 Active Problems Noted Date Diagnosed Date [facility] Education - [facility] 12/10/2022 Education - [place] 12/10/2022 Reason for Referral Specialty Diagnoses / Procedures Referred By Valdez solano Referred To Contact [facility] Diagnoses 30 weeks gestation of High-risk in third trimester Pain in left hip Procedures CONSULT TO PHYSICAL THERAPY PHYSICAL THERAPY EVALUATION HIGH COMPLEX 45 MINS Matt Kramer MD [address] [place] [address] [facility] [place] [address] [place] [address] Referral ID Status Reason Start Date Expiration Date Visits Requested Visits Authorized [id number] Pending Review Auto-Generat ed Referral 05/14/2023 05/13/2024 1 1 Specialty Diagnoses / Procedures Referred By Valdez solano Referred To Contact Orthopedics Diagnoses Upper back pain Acute left-sided low back pain with left-sided sciatica Procedures CONSULT TO ORTHOPAEDICS OFFICE/OUTPATIENT [facility] 60 MINUTES Judie Holliday MD [address] [place] [address] Referral ID Status Reason Start Date Expiration Date Visits Requested Visits Authorized [id number] Authorized PCP Requested Referral 04/14/2024 04/14/2025 1 1 Additional Source Comments INFORMATION SOURCE (unrecogn ized section and content) DATE CREATED AUTHOR 09/04/2017 [facility] DATE CREATED AUTHOR AUTHOR'S ORGANIZ ATION 09/10/2017 [facility] DATE CREATED AUTHOR AUTHOR'S ORGANIZ ATION 09/11/2017 [facility] DATE CREATED AUTHOR AUTHOR'S ORGANIZ ATION 10/08/2017 [facility] DATE CREATED AUTHOR AUTHOR'S ORGANIZ ATION 05/07/2018 [facility] DATE CREATED AUTHOR AUTHOR'S ORGANIZ ATION 01/10/2019 [facility] DATE CREATED AUTHOR AUTHOR'S ORGANIZ ATION 01/19/2020 [facility] DATE CREATED AUTHOR AUTHOR'S ORGANIZ ATION 09/01/2020 [facility] DATE CREATED AUTHOR AUTHOR'S ORGANIZ ATION 09/14/2020 [facility] DATE CREATED AUTHOR AUTHOR'S ORGANIZ ATION 04/18/2021 [facility] DATE CREATED AUTHOR AUTHOR'S ORGANIZ ATION 09/20/2021 [facility] DATE CREATED AUTHOR AUTHOR'S ORGANIZ ATION 09/23/2021 [facility] DATE CREATED AUTHOR AUTHOR'S ORGANIZ ATION 06/07/2022 [facility] DATE CREATED AUTHOR AUTHOR'S ORGANIZ ATION 03/10/2024 [facility] DATE CREATED AUTHOR AUTHOR'S ORGANIZ ATION 10/04/2024 [facility] DATE CREATED AUTHOR AUTHOR'S ORGANIZ ATION 01/20/2025 [facility] DATE CREATED AUTHOR AUTHOR'S ORGANIZ ATION 01/22/[address] [facility] nter Reason for Visit (unrecogniz ed section and content) Reason Comments PT Discharge Specialty Diagnoses / Procedures Referred By Contac t Referred To Contact PHYSICAL THERAPY Diagnoses Left-sided low back pain with left-sided sciatica, unspecified chronicity Neck pain on left side Cervical radiculopathy Procedures CONSULT TO PHYSICAL THERAPY PHYSICAL THERAPY EVALUATION HIGH COMPLEX 45 MINS Mikhail Mckeon MD [address] [place] [address] Phone: tel: fax: [facility] [address] [place] [address] Phone: tel: fax: Referral ID Status Reason Start Date Expiration Date Visits Requested Visits Authorized [id number] Authorized Auto-Generat ed Referral 03/18/2024 03/17/2025 99 99 Reason Comments PT Re-eval Reason Comments Physical Therapy Reason Comments PT Progress Note Status Reason Specialty Diagnoses / Procedures Referred By Contact Referred To Contact Not Required - [facility] Diagnoses Encounter for supervision of other normal , second trimester Procedures US OB 14 PLUS WEEKS SINGLE OR FIRST GESTATION Yahaira Mayfield MD [address] [place] [address] [facility] [address] [place] [address] Reason Comments Abdominal Pain srom at 0800 Reason Comments Vaginal Discharge Rectal Bleeding Abdominal Pain Reason Comments Extremity Weakness legs, see traige not e Reason Comments Cough Chest congestion, SO B, chills x2 days Reason Onset Date Comments Refill Request 12/31/2022 Reason Onset Date Comments Care 01/07/2023 Reason Comments US Specialty Diagnoses / Procedures Referred By Contac t Referred To Contact [facility] Diagnoses with uncertain dates in first trimester 8 weeks gestation of Procedures NUCHAL TRANSLUCENCY WHI US NUCHAL TRANSLUCENCY 1ST GESTATION Lexis Greene APRN.[employer]CRETE [employer]ET [employer]ER [address] [place] [address] [address] Referral ID Status Reason Start Date Expiration Date V isits Requested Visits Authorized [id number] Closed Auto-Generate d Referral 12/10/2022 12/10/2023 1 1 Reason Onset Date Comments Care 02/21/2023 Reason Onset Date Comments Care 04/30/2023 Reason Comments PRAF Reason Onset Date Comments Care 05/14/2023 Reason Comments US Specialty Diagnoses / Procedures Referred By Contac t Referred To Contact [facility] Diagnoses complicated by subutex maintenance, antepartum (HCC) Supervision of high risk in third trimester Procedures OBSTETRIC ULTRASOUND WHI US PREG UTERUS AFTER 1ST TRIMEST GESTATION Brooke Suazo MD [address] [place] [address] [address] Referral ID Status Reason Start Date Expiration Date V isits Requested Visits Authorized [id number] Closed Auto-Generate d Referral 04/30/2023 04/29/2024 1 1 Reason Onset Date Comments Care 05/28/2023 Reason Onset Date Comments Care 06/11/2023 Specialty Diagnoses / Procedures Referred By Contac t Referred To Contact [facility] Diagnoses High-risk in first trimester complicated by subutex maintenance, antepartum (HCC) Procedures OBSTETRIC ULTRASOUND WHI US PREG UTERUS AFTER 1ST TRIMEST GESTATION Brooke Suazo MD [address] [place] [address] [facility] [address] [place] [address] Referral ID Status Reason Start Date Expiration Date V isits Requested Visits Authorized [id number] Closed Auto-Generate d Referral 01/07/2023 01/07/2024 1 1 Reason Onset Date Comments Care 06/26/2023 Reason Onset Date Comments Care 07/02/2023 Reason Onset Date Comments Population Health Navigation Outreach 07/08/2023 Ob/peds Reason Onset Date Comments Care 07/09/2023 Reason Comments Induction of Labor Reason Comments Letter Reason Comments Leg Pain left leg pain with w armth to touch x 2 weeks-pain from inner knee to ankle Reason Comments Routine Reason Comments Cough Chest congestin, SOB , fatigue, fever on and off, wheeze x 1 month Reason Comments Establish Care Chronic back issues. Pain radiates down left arm. Behavioral health rx's all meds. Reason Comments New Pain Specialty Diagnoses / Procedures Referred By Contac t Referred To Contact Orthopedics Diagnoses Upper back pain Acute left-sided low back pain with left-sided sciatica Procedures CONSULT TO ORTHOPAEDICS OFFICE/OUTPATIENT NEW HIGH MDM 60 MINUTES Judie Holliday MD [address] [place] [address] Phone: tel: fax: Referral ID Status Reason Start Date Expiration Date V isits Requested Visits Authorized [id number] Closed PCP Requested Referral 04/14/2024 04/14/2025 1 1 Reason Comments Return To Work Letter Reason Comments Yearly Exam Reason Comments referral info given via [employer] Reason Comments Gastro referral faxed to [facility] Reason Comments PT Eval Reason Comments Refill Request Reason Comments Follow Up Pain Reason Comments Follow Up Pain Reason Comments Orders MRI cervical spine Reason Comments Follow Up 3 week recheck Results Blood work Reason Comments Appointment Appointment Reason Comments Follow Up Pain Results - Mri Reason Comments Radiology US Specialty Diagnoses / Procedures Referred By Valdez t Referred To Contact [facility] Diagnoses RUQ pain Procedures US ABD RIGHT UPPER QUADRANT US ABDOMINAL REAL TIME W/IMAGE LIMITED Amilcar Rivera PA-C [address] [place] [address] Phone: tel: fax: [place] [phone] Referral ID Status Reason Start Date Expiration Date V isits Requested Visits Authorized [id number] Closed Auto-Generate d Referral 08/26/2024 09/25/2025 1 1 Reason Comments New Patient Establish Care Lump Back of right leg. X 1 month. Abnormal Weight Gain sweating Patient states she s weats all the time. Reason Comments abnormal thyroid labs Specialty Diagnoses / Procedures Referred By Valdez solano Referred To Contact Endocrinology Diagnoses Abnormal TSH Hypothyroidism, unspecified type Procedures CONSULT TO ENDOCRINOLOGY OFFICE/OUTPATIENT NEW HIGH MDM 60 MINUTES Amilcar Rivera PA-C [address] [place] [address] Phone: tel: fax: Referral ID Status Reason Start Date Expiration Date V isits Requested Visits Authorized [id number] Closed PCP Requested Referral 08/26/2024 08/26/2025 1 1 Reason Comments GERD Started medicationSo metimes helps, sometimes notBurning sensation with eating, drinking Not able to sleep on right side - makes it worseHistory of colitis Hypothyroidism Endocrinology asked her to wait for auto immune testing to be completedSynthroid stopped by Endo Reason Comments New Patient Specialty Diagnoses / Procedures Referred By Valdez t Referred To Contact V[facility] Medicine Diagnoses Leg mass, right Procedures CONSULT TO VASCULAR MEDICINE OFFICE/OUTPATIENT NEW HIGH MDM 60 MINUTES Amilcar Rivera PA-C [address] [place] [address] Phone: tel: fax: Referral ID Status Reason Start Date Expiration Date V isits Requested Visits Authorized [id number] Closed PCP Requested Referral 08/26/2024 08/26/2025 1 1 Reason Comments Established Patient Reason Comments Medical Weight Management Specialty Diagnoses / Procedures Referred By Contac t Referred To Contact Diagnoses Abnormal TSH Hypothyroidism, unspecified type Procedures OFFICE/OUTPATIENT [facility] 60 MINUTES Torsten Burrows MD [address] [place] [address] Phone: tel: fax: Referral ID Status Reason Start Date Expiration Date V isits Requested Visits Authorized [id number] Closed PCP Requested Referral 09/23/2024 09/23/2025 1 1 Reason Onset Date Comments Refill Request 11/04/2024 Reason Comments Hypothyroidism Reason Comments Medication Preauthorization Denied Synth roid 25MCG tablets Reason Comments Medication Preauthorization PA- Synthroi d 25MCG tablets Reason Comments Rash on hands x couple mo nths, increased x this week Reason Comments Procedure Left leg EVLT Scheduled Active and Recently Administ ered Medications (unrecognized section and content) Medication Order 09/01/2020 09/02/2020 09/03/2020 0.9 % sodium chloride bolus (COMPLETED) 1,000 mL (12.6 mL/kg), Intravenous, at 500 mL/hr, Administer over 2 Hours, ONCE, On Sat09/02/20 at 191, For 1 dose 1917 (New Bag - Provider: Radha Robb RN)2317 (Stopped - Provider: Karli Fitzpatrick RN) ketorolac (TORADOL) injection 30 mg (COMPLETED) 30 mg, Intravenous, ONCE, On Sat09/02/20 at 2031, For 1 dose, Do not administer for more than 5 days. 2032 (Given - Provider: Radha Robb RN) metroNIDAZOLE (FLAGYL) tablet 500 mg (COMPLETED) 500 mg, Oral, ONCE, On Sat09/02/20 at 2206, For 1 dose 2215 (Given - Provider: Radha Robb RN) metroNIDAZOLE (FLAGYL) tablet 500 mg 500 mg, Oral, EVERY 12 HOURS SCHEDULED (2 times per day), First dose (after last reorder) on Sat09/03/20 at 0900, For 13 doses 0820 (Given - Provid er: Karli Fitzpatrick RN)2100 (Due) montelukast (SINGULAIR) tablet 10 mg 10 mg, Oral, NIGHTLY, First dose on Sat09/02/20 at 2345 0024 (Given - Provid er: Karli Fitzpatrick RN)2100 (Due) morphine (PF) injection 2 mg (COMPLETED) 2 mg, Intravenous, ONCE, On Sat09/02/20 at 1911, For 1 dose 1917 (Given - Provider: Radha Robb RN) morphine (PF) injection 2 mg (COMPLETED) 2 mg, Intravenous, ONCE, On Sat09/02/20 at 2216, For 1 dose 2217 (Given - Provider: Radha Robb RN) nicotine (NICODERM CQ) 14 MG/24HR 1 patch 1 patch, Transdermal, Administer over 24 Hours, DAILY, First dose (after last modification) on Sat09/02/20 at 2345, Apply new patch to nonhairy, clean, dry skin on the upper body or upper outer arm. Rotate patch sites. Notify pharmacy if patient or provider prefers patch to be removed at bedtime and replaced in the morning. Hazardous Medication -- Refer to facility policy for handling and disposal. 11 (Patch Applied - Provider: Karli Fitzpatrick RN)2058 (Due: Patch Removed - Provider: Karli Fitzpatrick RN)2099 (Due - Provider: Celestino Connors, [facility]) OLANZapine (ZYPREXA) tablet 2.5 mg 2.5 mg, Oral, NIGHTLY, First dose on Sat09/02/20 at 2345 0012 (Given - Provid er: Karli Fitzpatrick RN)2100 (Due) ondansetron (ZOFRAN) injection 4 mg (COMPLETED) 4 mg, Intravenous, ONCE, On Sat09/02/20 at 191, For 1 dose 1917 (Given - Provider: Radha Robb RN) prazosin (MINIPRESS) capsule 2 mg 2 mg, Oral, NIGHTLY, First dose on Sat09/02/20 at 2345 0024 (Given - Provid er: Karli Fitzpatrick RN)2100 (Due) sodium chloride flush 0.9 % injection 5-40 mL 5-40 mL, Intravenous, EVERY 12 HOURS SCHEDULED (2 times per day), First dose on Sat09/02/20 at 2345, For Line Patency: Peripheral IV = 5 mL; Midline or Central Line = 10 mL/lumen. If following IV push medication, administer flush at same rate as the IV push. Flush volume is determined by type of infusion therapy being given. For non-viscous solutions use: Peripheral IV = 5 mL Midline or Central Line = 10 mL/lumen For viscous solutions (i.e. blood components, parenteral nutrition, contrast media, or after obtaining blood sample) use: Peripheral IV = 10 mL Midline or Central Line = 20 mL/lumen 0012 (Given - Provid er: Karli Fitzpatrick RN)0820 (Not Given - Provider: Karli Fitzpatrick RN - Reason: IV Fluid Infusing)2100 (Due) traZODone (DESYREL) tablet 50 mg 50 mg, Oral, NIGHTLY, First dose on Sat09/02/20 at 2345 0012 (Given - Provid er: Karli Fitzpatrick RN)2100 (Due) Continuous Medication Order 09/01/2020 09/02/2020 09/03/2020 0.9 % sodium chloride infusion Intravenous, at 75 mL/hr, CONTINUOUS, Starting on Sat09/02/20 at 2330 0012 (New Bag - Prov ider: Karli Fitzpatrick RN) PRN Medication Order 09/01/2020 09/02/2020 09/03/2020 0.9 % sodium chloride infusion 25 mL, Intravenous, at 100 mL/hr, PRN, If patient receiving piggyback infusions without ordered maintenance IV fluids or with frequent/long duration piggyback infusions, Starting on Sat09/02/20 at 2313, Administer at the same rate as the piggyback being infused. acetaminophen (TYLENOL) suppository 650 mg(Linked Group 1) 650 mg, Rectal, EVERY 6 HOURS PRN, Pain Mild (1-3), Fever, For temp greater than 100.4 F (38 C), Starting on Sat09/02/20 at 2313, Administer if oral route cannot be used. acetaminophen (TYLENOL) tablet 650 mg(Linked Group 1) 650 mg, Oral, EVERY 6 HOURS PRN, Pain Mild (1-3), Fever, For temp greater than 100.4 F (38 C), Starting on Sat09/02/20 at 2313, Maximum dose of acetaminophen is 4000 mg from all sources in 24 hours. dicyclomine (BENTYL) injection 20 mg 20 mg, Intramuscular, 4 TIMES DAILY PRN, Abdominal Cramping, Starting on Sat09/02/20 at 2315 iopamidol (ISOVUE-300) 61 % injection 100 mL (COMPLETED) 100 mL, Intravenous, IMG ONCE PRN, Other, Starting on Sat09/02/20 at 1954, For 1 dose 1956 (Given - Provider: Ema Gaffney) ketorolac (TORADOL) injection 15 mg 15 mg, Intravenous, EVERY 6 HOURS PRN, Pain Moderate (4-6), Pain Severe (7-10), Starting on Sat09/02/20 at 2330, For 5 days, Do not administer for more than 5 days. 0012 (Given - Provid er: Karli Fitzpatrick RN)0557 (Given - Provider: Karli Fitzpatrick RN) LORazepam (ATIVAN) tablet 0.5 mg 0.5 mg, Oral, EVERY 6 HOURS PRN, Anxiety, Starting on Sat09/03/20 at 1203 ondansetron (ZOFRAN) injection 4 mg(Linked Group 2) 4 mg, Intravenous, EVERY 6 HOURS PRN, Nausea, Vomiting, Starting on Sat09/02/20 at 2313, Administer if oral route cannot be used. ondansetron (ZOFRAN-ODT) disintegrating tablet 4 mg(Linked Group 2) 4 mg, Oral, EVERY 8 HOURS PRN, Nausea, Vomiting, Starting on Sat09/02/20 at 2313 polyethylene glycol (GLYCOLAX) packet 17 g 17 g, Oral, DAILY PRN, Constipation, Starting on Sat09/02/20 at 2313, First line therapy for constipation sodium chloride flush 0.9 % injection 5-40 mL 5-40 mL, Intravenous, PRN, Line Care, After every IV line use, Starting on Sat09/02/20 at 2313, For Line Patency: Peripheral IV = 5 mL; Midline or Central Line = 10 mL/lumen. If following IV push medication, administer flush at same rate as the IV push. Flush volume is determined by type of infusion therapy being given. For non-viscous solutions use: Peripheral IV = 5 mL Midline or Central Line = 10 mL/lumen For viscous solutions (i.e. blood components, parenteral nutrition, contrast media, or after obtaining blood sample) use: Peripheral IV = 10 mL Midline or Central Line = 20 mL/lumen Linked Groups Order Group 1: acetaminophen (TYLENOL) tablet 650 mgJump to med 650 mg, Oral, EVERY 6 HOURS PRN, Pain Mild (1-3), Fever, For temp greater than 100.4 F (38 C), Starting on Sat09/02/20 at 2313
Maximum dose of acetaminophen is 4000 mg from all sources in 24 hours.
Or acetaminophen (TYLENOL) suppository 650 mgJump to med 650 mg, Rectal, EVERY 6 HOURS PRN, Pain Mild (1-3), Fever, For temp greater than 100.4 F (38 C), Starting on Sat09/02/20 at 2313
Administer if oral route cannot be used.
Group 2: ondansetron (ZOFRAN-ODT) disintegrating tablet 4 mgJump to med 4 mg, Oral, EVERY 8 HOURS PRN, Nausea, Vomiting, Starting on Sat09/02/20 at 2313 Or ondansetron (ZOFRAN) injection 4 mgJump to med 4 mg, Intravenous, EVERY 6 HOURS PRN, Nausea, Vomiting, Starting on Sat09/02/20 at 2313
Administer if oral route cannot be used.
Scheduled Medication Order 09/09/2020 09/10/2020 09/11/2020 0.9 % sodium chloride bolus (COMPLETED) 1,000 mL (13.4 mL/kg), Intravenous, at 500 mL/hr, Administer over 2 Hours, ONCE, On 09/11/20 at 1702, For 1 dose 1725 (New Bag - Prov ider: Arcelia Bailey RN)185 (Stopped - Provider: Arcelia Bailey RN) 0.9 % sodium chloride bolus (COMPLETED) 1,000 mL (13.4 mL/kg), Intravenous, at 500 mL/hr, Administer over 2 Hours, ONCE, On 09/11/20 at 1855, For 1 dose 185 (New Bag - Prov ider: Arcelia Bailey RN)2030 (Stopped - Provider: Arcelia Bailey RN) <item> Privacy Markings (unrecogniz ed section and content) Section Author: Julisa Urbina PROHIBITION ON REDISCLOSURE OF CONFIDENTIAL INFORMATION This notice accompanies a disclosure of information concerning a client made to you with the consent of such client. Care Teams (unrecognized sec tion and content) Team Status: Active Member Role Status Dates Dr. Mary Myers MD Primary Care Provider Active Team Status: Active Member Role Status Dates Dr. Mary Myers MD Primary Care Provider Active Dr. Matt Kramer MD Admit Provider, Re ferring Provider, Other Provider Active Nadia Tapia , HAND KNITTER-C Attending Provider Active Team Status: Inactive Member Role Status Dates Dr. Mary Myers MD Primary Care Provider Active Dr. Matt Kramer MD Admit Provider, At tending Provider, Referring Provider Active Team Status: Inactive Member Role Status Dates Dr. Mary Myers MD Attending Provider Active No Primary Care Physician Primary Care Provider, Refer ring Provider Active Team Status: Active Member Role Status Dates Chantale Fowler Attending Provider Active Team Status: Inactive Member Role Status Dates ALLY BENNETT NP-C Attending Provider, Referring Provider Active Dr. Mary Myres MD Primary Care Provider Active Team Status: Inactive Member Role Status Dates No Primary Care Physician Primary Care Provider Active Dr. Kristofer Field MD Attending Provider, Emergency Provider Active Team Status: Inactive Member Role Status Dates Dr. Mary Myers MD Primary Care Pro vider, Attending Provider, Referring Provider Active Team Status: Inactive Member Role Status Dates Dr. Mary Myers MD Primary Care Provider, Attendi ng Provider Active Team Status: Inactive Member Role Status Dates Dr. Mary Myers MD Primary Care Provider, Referri ng Provider Active Dr. Luis Daniel Hutton DO Attending Provider Active Team Status: Inactive Member Role Status Dates Dr. Mary Myers MD Primary Care Provider Active Dr. Luis Daniel Hutton , Attending Provider, Referring Provider Active Team Status: Inactive Member Role Status Dates Dr. Mary Myers MD Primary Care Provider Active Dr. Feroz Maradiaga DO Emergency Provider Active Team Status: Active Member Role Status Dates Dr. Mary Myers MD Primary Care Provider, Referri ng Provider Active Dr. Luis Daniel Hutton , Attending Provider, Other Prov ider Active Team Status: Inactive Member Role Status Dates Dr. Mary Myers MD Primary Care Provider Active Dr. Feroz Maradiaga , Attending Provider, Emergency Provider Active Team Status: Inactive Member Role Status Dates Dr. Mary Myers MD Primary Care Provider Active Dr. Amilcar Ott DO Attending Provider, Referring Pr ovider Active Bible Worker Relationship Specialty Start Date End Date Mary Myers MD [address] [place] [address] PCP - General Internal Medicine 12/24/22 Usman Palomo 1 [facility] [place] [address] [place] [phone] Obstetrics 07/07/15 Bible Worker Relationship Specialty Start Date End Date Mary Myers MD [address] [place] [address] PCP - General Internal Medicine 12/24/22 Usman Palomo [address] [place] [phone] Obstetrics 07/07/15 Bible Worker Relationship Specialty Start Date End Date Mary Myers MD [address] [place] [address] PCP - General Internal Medicine 12/24/22 Usman Palomo [address] [place] [address] Obstetrics 07/07/15 Bible Worker Relationship Specialty Start Date End Date Mary Myers MD [address] [place], [place] 2922[address] 877- PCP - General Internal Medicine 12/24/22 Usman Palomo 1 [facility] [place] [address] [place] [phone] Obstetrics 07/07/15 Bible Worker Relationship Specialty Start Date End Date Mary Myers MD [address] [place] [address] PCP - General Internal Medicine 12/24/22 Usman Palomo 1 [facility] [address] [place] [address] Obstetrics 07/07/15 Bible Worker Relationship Specialty Start Date End Date Mary Myers MD [address] [place] [address] PCP - General Internal Medicine 12/24/22 Usman Palomo 1 [facility] [address] [place] [address]0478[address] Obstetrics 07/07/15 Bible Worker Relationship Specialty Start Date End Date Mary Myers MD [address] [place], [place] 317299 629- PCP - General Internal Medicine 12/24/22 Usman Palomo 1 [facility] [address] [place] [address]442320[address]42[address] Obstetrics 07/07/15 Bible Worker Relationship Specialty Start Date End Date Mary Myers MD [address] [place], [place] 089901 520- PCP - General Internal Medicine 12/24/22 Usman Palomo [address] [place] [address]31643[address] Obstetrics 07/07/15 Bible Worker Relationship Specialty Start Date End Date Mary Myers MD [address] [place], [place] 529076 043- PCP - General Internal Medicine 12/24/22 Usman Palomo [address] [place] [address]320[address] Obstetrics 07/07/15 Bible Worker Relationship Specialty Start Date End Date Mary Myers MD [address] [place], [place] [id number] 644- PCP - General Internal Medicine 12/24/22 Usman Palomo [address] [place] [address]8800320[address] Obstetrics 07/07/15 Bible Worker Relationship Specialty Start Date End Date Mary Myers MD [address] [place], [place] 7815[address] 783- PCP - General Internal Medicine 12/24/22 Usman Palomo [address] [place] [address]9320[address]42[address] Obstetrics 07/07/15 Bible Worker Relationship Specialty Start Date End Date Mary Myers MD [address] [place] [address] PCP - General Internal Medicine 12/24/22 Usman Palomo [address] [place] [address]1320[address]42[address] Obstetrics 07/07/15 Bible Worker Relationship Specialty Start Date End Date Mary Myers MD [address] [place] [address] PCP - General Internal Medicine 12/24/22 Usman Palomo [address] [facility] [address] [place] [phone] Obstetrics 07/07/15 Bible Worker Relationship Specialty Start Date End Date Mary Myers MD [address] [place] [address] PCP - General Internal Medicine 12/24/22 Usman Palomo 1 [facility] [place] [address] [place] [phone] Obstetrics 07/07/15 Bible Worker Relationship Specialty Start Date End Date Mary Myres MD [address] [place] [address] PCP - General Internal Medicine 12/24/22 Usman Palomo 1 [facility] [address] [place] [address]73[address] Obstetrics 07/07/15 Bible Worker Relationship Specialty Start Date End Date Mary Myers MD [address] [place] [address] PCP - General Internal Medicine 12/24/22 Usman Palomo [address] [place] [address]1320[address] Obstetrics 07/07/15 Bible Worker Relationship Specialty Start Date End Date Mary Myers MD [address] [place] [address] PCP - General Internal Medicine 12/24/22 Usman Palomo [address] [place] [phone] Obstetrics 07/07/15 Bible Worker Relationship Specialty Start Date End Date Mary Myers MD [address] [place] [address] PCP - General Internal Medicine 12/24/22 Usman Palomo [address] [place] [phone] Obstetrics 07/07/15 Bible Worker Relationship Specialty Start Date End Date Mary Myers MD [address] [place] [address] PCP - General Internal Medicine 12/24/22 Usman Palomo [address] [place] [address]1320[address]42[address] Obstetrics 07/07/15 Bible Worker Relationship Specialty Start Date End Date Mary Myers MD [address] [place] [address] PCP - General Internal Medicine 12/24/22 Usman Palomo [address] [place] [address]6093320[address]42[address] Obstetrics 07/07/15 Bible Worker Relationship Specialty Start Date End Date Mary Myers MD [address] [place] [address] PCP - General Internal Medicine 12/24/22 Usman Palomo [address] [place] [address] Obstetrics 07/07/15 Bible Worker Relationship Specialty Start Date End Date Judie Holliday MD [address] [facility] [place] [address] PCP - General Family Medicine 04/14/24 Usman Palomo 1 [facility] [address] [place] [address] Obstetrics 07/07/15 Bible Worker Relationship Specialty Start Date End Date Judie Holliday MD [address] [facility] [place] [address] PCP - General Family Medicine 04/14/24 Usman Palomo 1 [facility] [place] [address] [place] [address] Obstetrics 07/07/15 Bible Worker Relationship Specialty Start Date End Date Judie Holliday MD [address] [facility] [place] [address] PCP - General Family Medicine 04/14/24 Usman Palomo 1 [facility] [place] [address] [place] [address] Obstetrics 07/07/15 Bible Worker Relationship Specialty Start Date End Date Judie Holliday MD [address] [facility] [place] [address] PCP - General Family Medicine 04/14/24 Usman Palomo 1 [facility] [place] [address] [place] [address] Obstetrics 07/07/15 Bible Worker Relationship Specialty Start Date End Date Judie Holliday MD [address] [facility] [place] 9508220 PCP - General Family Medicine 04/14/24 Usman Palomo 1 [facility] [address] [place] [address] Obstetrics 07/07/15 [place] [address] [place] [address] Sports Medicine 05/12/24 Ema Abarca APRN.CNM [address] [place] [address] Staffing Account Manager 05/12/24 Bible Worker Relationship Specialty Start Date End Date Judie Holliday MD [address] [place], [place] [address] PCP - General Family Medicine 04/14/24 Usman Palomo 1 [facility] [address] [place] [address] Obstetrics 07/07/15 [place] [address] [place] [address] Sports Medicine 05/12/24 Ema Abarca APRN.CNM [address] [place] [address] Staffing Account Manager 05/12/24 Bible Worker Relationship Specialty Start Date End Date Judie Holliday MD [address] [place] [address] PCP - General Family Medicine 04/14/24 Usman Palomo 1 [facility] [address] [place] [address] Obstetrics 07/07/15 Mikhail Mckeon MD [address] [place] [address] Sports Medicine 05/12/24 Ema Abarca APRN.CN [address] [place] [id number] Staffing Account Manager 05/12/24 Bible Worker Relationship Specialty Start Date End Date Judie Holliday MD [address] [place], [place] [address]43[address] PCP - General Family Medicine 04/14/24 Usman Palomo 1 [facility] [address] [place] [address] Obstetrics 07/07/15 Mikhail Mckeon MD [address] [place] [address] Sports Medicine 05/12/24 Ema Abarca APRN.CN [address] [place] [phone] Staffing Account Manager 05/12/24 Bible Worker Relationship Specialty Start Date End Date Judie Holliday MD [address] [place], [place] 69217[address] PCP - General Family Medicine 04/14/24 Usman Palomo 1 [facility] [address] [place] [address] Obstetrics 07/07/15 Mikhail Mckeon MD [address] [place] [address] Sports Medicine 05/12/24 Ema Abarca APRN.CN [address] [place] [address] Staffing Account Manager 05/12/24 Bible Worker Relationship Specialty Start Date End Date Judie Holliday MD [address] [place], [place] 8619120 PCP - General Family Medicine 04/14/24 Usman Palomo 1 [facility] [address] [place] [address] Obstetrics 07/07/15 Mikhail Mckeon MD [address] [place] [address] Sports Medicine 05/12/24 Ema Abarca APRN.CNM [address] [address] Staffing Account Manager 05/12/24 Bible Worker Relationship Specialty Start Date End Date Judie Holliday MD [address] [place], [place] 6593220 PCP - General Family Medicine 04/14/24 Usman Palomo 1 [facility] [address] [place] [address] Obstetrics 07/07/15 Mikhail Mckeon MD [address] [place] [address] Sports Medicine 05/12/24 Ema [place] [address] Staffing Account Manager 05/12/24 Bible Worker Relationship Specialty Start Date End Date Judie Holliday MD [address] [place] [id number] PCP - General Family Medicine 04/14/24 Usman Palomo 1 [facility] [address] [place] [address] Obstetrics 07/07/15 Mikhail Mckeon MD [address] [place] [address] Sports Medicine 05/12/24 Ema Abarca APRN.CNM [address] [place] [id number] Staffing Account Manager 05/12/24 Bible Worker Relationship Specialty Start Date End Date Judie Holliday MD [address] [place], [place] [address]658[address] PCP - General Family Medicine 04/14/24 Usman Palomo 1 [facility] [address] [place] [phone] Obstetrics 07/07/15 Mikhail Mckeon MD [address] [place] [address] Sports Medicine 05/12/24 Ema Abarca APRN.CNM [address] [place] [phone] Staffing Account Manager 05/12/24 Bible Worker Relationship Specialty Start Date End Date Judie Holliday MD [address] [place], [place] 41832[address] PCP - General Family Medicine 04/14/24 Usman Palomo 1 [facility] [address] [place] [address] Obstetrics 07/07/15 Mikhail Mckeon MD [address] [facility] [place] [address] Sports Medicine 05/12/24 Ema Abarca APRN.CNM [address] [place] [phone] Staffing Account Manager 05/12/24 Bible Worker Relationship Specialty Start Date End Date Judie Holliday MD [address] [place] [id number] PCP - General Family Medicine 04/14/24 Usman Palomo 1 [facility] [address] [place] [address] Obstetrics 07/07/15 Mikhail Mckeon MD [address] [facility] [place] [address] Sports Medicine 05/12/24 Ema Abarca APRN.CNM [address] [address] Staffing Account Manager 05/12/24 Bible Worker Relationship Specialty Start Date End Date Judie Holliday MD [address] [place], [place] 1389820 PCP - General Family Medicine 04/14/24 Usman Palomo 1 [facility] [address] [place] [address] Obstetrics 07/07/15 Mikhail Mckeon MD [address] [place] [address] Sports Medicine 05/12/24 Ema Abarca APRN.CNM [address] [place] [address] Staffing Account Manager 05/12/24 Bible Worker Relationship Specialty Start Date End Date Judie Holliday MD [address] [place] [address] PCP - General Family Medicine 04/14/24 Usman Palomo 1 [facility] [address] [place] [address] Obstetrics 07/07/15 [place] [address] [place] [address] Sports Medicine 05/12/24 Ema Abarca APRN.CNM [address] [place] [address] Staffing Account Manager 05/12/24 Bible Worker Relationship Specialty Start Date End Date Amilcar Rivera PA-C [address] [place] [address] PCP - General Physician Receiving Coordinator 08/05/24 Usman Palomo 1 [facility] [address] [place] [address] Obstetrics 07/07/15 Mikhail Mckeon MD [address] [place] [address] Sports Medicine 05/12/24 Ema Abarca APRN.CN [address] [place] [phone] Staffing Account Manager 05/12/24 Bible Worker Relationship Specialty Start Date End Date Amilcar Rivera PA-C [address] [place], [place] [phone] PCP - General Physician Receiving Coordinator 08/05/24 Usman Palomo 1 [facility] [address] [place] [address] Obstetrics 07/07/15 Mikhail Mckeon MD [address] [place] [address] Sports Medicine 05/12/24 Ema Abarca, MOE.CN [address] [place] [phone] Staffing Account Manager 05/12/24 Bible Worker Relationship Specialty Start Date End Date Amilcar Rivera PA-C [address] [place] [address] PCP - General Physician Receiving Coordinator 08/05/24 Usman Palomo 1 [facility] [address] [place] [address] Obstetrics 07/07/15 Mikhail Mckeon MD [address] [place] [address] Sports Medicine 05/12/24 Ema Abarca APRN.CNBeckie [address] [place] [address] Staffing Account Manager 05/12/24 Bible Worker Relationship Specialty Start Date End Date Amilcar Rivera PA-C [address] [place], [place] [phone] PCP - General Physician Receiving Coordinator 08/05/24 Usman Palomo 1 [facility] [address] [place] [address] Obstetrics 07/07/15 Mikhail Mckeon MD [facility] [place] [address] Sports Medicine 05/12/24 Ema Abarca APRN.CNM [address] [place] [address] Staffing Account Manager 05/12/24 Bible Worker Relationship Specialty Start Date End Date Amilcar Rivera PA-C [address] [place], [place] [phone] PCP - General Physician Receiving Coordinator 08/05/24 Usman Palomo 1 [facility] [address] [place] [address] Obstetrics 07/07/15 Mikhail Mckeon MD [address] [place] [address] Sports Medicine 05/12/24 Ema Abarca APRN.CNM [address] [place] [address] Staffing Account Manager 05/12/24 Bible Worker Relationship Specialty Start Date End Date Amilcar Rivera PA-C [address] [place] [address] PCP - General Physician Receiving Coordinator 08/05/24 Usman Palomo 1 [facility] [address] [place] [address] Obstetrics 07/07/15 Mikhail Mckeon MD [address] [place] [address] Sports Medicine 05/12/24 Ema Abarca APRN.CNM [address] [place] [address] Staffing Account Manager 05/12/24 Bible Worker Relationship Specialty Start Date End Date Amilcar Rivera PA-C [address] [place] [address] PCP - General Physician Receiving Coordinator 08/05/24 Usman Palomo 1 [facility] [address] [place] [address] Obstetrics 07/07/15 Mikhail Mckeon MD [address] [place], [place] [address] Sports Medicine 05/12/24 Ema Abarca APRN.CN [address] [place], [place] [id number] Staffing Account Manager 05/12/24 Bible Worker Relationship Specialty Start Date End Date Amilcar Rivera PA-C [address] [place], [place] [id number] PCP - General Physician Receiving Coordinator 08/05/24 Usman Palomo 1 [facility] [address] [place] [phone] Obstetrics 07/07/15 [place] [address] [place], [place] [address] [address] Sports Medicine 05/12/24 Ema Abarca APRN.CNM [address] [place], [place] [id number] Staffing Account Manager 05/12/24 Bible Worker Relationship Specialty Start Date End Date Amilcar Rivera PA-C [address] [place] [address] PCP - General Physician Receiving Coordinator 08/05/24 Usman Palomo 1 [facility] [address] [place] [phone] Obstetrics 07/07/15 Mikhail Mckeon MD [address] [facility] [place] [address] Sports Medicine 05/12/24 Ema Abarca APRN.CNM [address] [place], [place] [id number] Staffing Account Manager 05/12/24 Bible Worker Relationship Specialty Start Date End Date Amilcar Rivera PA-C [address] [place] [address] PCP - General Physician Receiving Coordinator 08/05/24 Usman Palomo 1 [facility] [address] [place] [phone] Obstetrics 07/07/15 [place] [address] [place] [address] Sports Medicine 05/12/24 Ema Abarca APRN.CNM [address] [place] [address] Staffing Account Manager 05/12/24 Bible Worker Relationship Specialty Start Date End Date Amilcar Rivera PA-C [address] [place] [address] PCP - General Physician Receiving Coordinator 08/05/24 Usman Palomo 1 [facility] [address] [place] [phone] Obstetrics 07/07/15 Mikhail Mckeon MD [address] [place] [phone] Sports Medicine 05/12/24 Ema Abarca APRN.[place] [address] [place] [address] Staffing Account Manager 05/12/24 Bible Worker Relationship Specialty Start Date End Date Amilcar Rivera PA-C [address] [place], [place] [id number] PCP - General Physician Receiving Coordinator 08/05/24 Usman Palomo 1 [facility] [address] [place] [phone] Obstetrics 07/07/15 Mikhail Mckeon MD [address] [place] [phone] Sports Medicine 05/12/24 Ema Abarca APRN.CNM [address] [place] [address] Staffing Account Manager 05/12/24 Bible Worker Relationship Specialty Start Date End Date Amilcar Rivera PA-C [address] [place], [place] [id number] PCP - General Physician Receiving Coordinator 08/05/24 Usman Palomo 1 [facility] [address] [place] [phone] Obstetrics 07/07/15 Mikhail Mckeon MD [address] [place] [phone] Sports Medicine 05/12/24 Ema Abarca APRN.CNM [address] [place] [address] Staffing Account Manager 05/12/24 Bible Worker Relationship Specialty Start Date End Date Amilcar Rivera PA-C [address] [place], [place] [id number] PCP - General Physician Receiving Coordinator 08/05/24 Usman Palomo 1 [facility] [address] [place] [phone] Obstetrics 07/07/15 Mikhail Mckeon MD [address] [place] [address] Sports Medicine 05/12/24 Ema Abarca, MOE.CN [address] [place] [id number] Staffing Account Manager 05/12/24 Bible Worker Relationship Specialty Start Date End Date Amilcar Rivera PA-C [address] [place], [place] [id number] PCP - General Physician Receiving Coordinator 08/05/24 Usman Palomo 1 [facility] [address] [place] [address] Obstetrics 07/07/15 Mikhail Mckeon MD [address] [place] [address] Sports Medicine 05/12/24 Ema Abarca, VICE PRESIDENT [employer].CNM [address] [place] [id number] Staffing Account Manager 05/12/24 Bible Worker Relationship Specialty Start Date End Date Amilcar Rivera PA-C [address] [place] [address] PCP - General Physician Receiving Coordinator 08/05/24 Usman Palomo 1 [facility] [address] [place] [phone] Obstetrics 07/07/15 Mikhail Mckeon MD [address] [place] [address] Sports Medicine 05/12/24 Ema Abarca APRN.CNBeckie [address] [place] [address] Staffing Account Manager 05/12/24 Bible Worker Relationship Specialty Start Date End Date Amilcar Rivera PA-C [address] [place], [place] [id number] PCP - General Physician Receiving Coordinator 08/05/24 Usman Palomo 1 [facility] [address] [place] [address] Obstetrics 07/07/15 Mikhail Mckeon MD [address] [place] [address] Sports Medicine 05/12/24 Ema Abarca APRN.CNM [address] [place] [address] Staffing Account Manager 05/12/24 Bible Worker Relationship Specialty Start Date End Date Amilcar Rivera PA-C [address] [place] [address] PCP - General Physician Receiving Coordinator 08/05/24 Usman Palomo 1 [facility] [address] [place] [address] Obstetrics 07/07/15 Mikhail Mckeon MD [address] [place] [address] Sports Medicine 05/12/24 Ema Abarca APRN.CNM [address] [place] [address] Staffing Account Manager 05/12/24 Bible Worker Relationship Specialty Start Date End Date Amilcar Rivera PA-C [address] [place], [place] [id number] PCP - General Physician Receiving Coordinator 08/05/24 Usman Palomo 1 [facility] [address] [place] [phone] Obstetrics 07/07/15 Mikhail Mckeon MD [address] [place] [address] Sports Medicine 05/12/24 Ema Abarca APRN.CNM [address] [place] [address] Staffing Account Manager 05/12/24 Bible Worker Relationship Specialty Start Date End Date Amilcar Rivera PA-C [address] [place] [address] PCP - General Physician Receiving Coordinator 08/05/24 Usman Palomo 1 [facility] [address] [place] [phone] Obstetrics 07/07/15 Mikhail Mckeon MD [address] [place] [address] Sports Medicine 05/12/24 Ema Abarca APRN.CNM [address] [place] [address] [phone] (work) Staffing Account Manager 05/12/24 Goals (unrecognized section and content) Goals may be documented in a n alternate sectionGoals may be documented in an alternate section Source Comments (unrecognize d section and content) In the event this informatio n is protected by the Federal Confidentiality of Alcohol and Drug Abuse Patient Records regulations: The Federal rules restrict any use of the information to criminally investigate or prosecute any alcohol or drug abuse patient.[facility] the event this information is protected by the Federal Confidentiality of Alcohol and Drug Abuse Patient Records regulations: The Federal rules restrict any use of the information to criminally investigate or prosecute any alcohol or drug abuse patient.[facility] the event this information is protected by the Federal Confidentiality of Alcohol and Drug Abuse Patient Records regulations: The Federal rules restrict any use of the information to criminally investigate or prosecute any alcohol or drug abuse patient.[facility] the event this information is protected by the Federal Confidentiality of Alcohol and Drug Abuse Patient Records regulations: The Federal rules restrict any use of the information to criminally investigate or prosecute any alcohol or drug abuse patient.[facility]In the event this information is protected by the Federal Confidentiality of Alcohol and Drug Abuse Patient Records regulations: The Federal rules restrict any use of the information to criminally investigate or prosecute any alcohol or drug abuse patient.[facility]In the event this information is protected by the Federal Confidentiality of Alcohol and Drug Abuse Patient Records regulations: The Federal rules restrict any use of the information to criminally investigate or prosecute any alcohol or drug abuse patient.[facility]In the event this information is protected by the Federal Confidentiality of Alcohol and Drug Abuse Patient Records regulations: The Federal rules restrict any use of the information to criminally investigate or prosecute any alcohol or drug abuse patient.[facility]In the event this information is protected by the Federal Confidentiality of Alcohol and Drug Abuse Patient Records regulations: The Federal rules restrict any use of the information to criminally investigate or prosecute any alcohol or drug abuse patient.[facility]In the event this information is protected by the Federal Confidentiality of Alcohol and Drug Abuse Patient Records regulations: The Federal rules restrict any use of the information to criminally investigate or prosecute any alcohol or drug abuse patient.[facility] HospitalIn the event this information is protected by the Federal Confidentiality of Alcohol and Drug Abuse Patient Records regulations: The Federal rules restrict any use of the information to criminally investigate or prosecute any alcohol or drug abuse patient.[facility]In the event this information is protected by the Federal Confidentiality of Alcohol and Drug Abuse Patient Records regulations: The Federal rules restrict any use of the information to criminally investigate or prosecute any alcohol or drug abuse patient.[facility] HospitalIn the event this information is protected by the Federal Confidentiality of Alcohol and Drug Abuse Patient Records regulations: The Federal rules restrict any use of the information to criminally investigate or prosecute any alcohol or drug abuse patient.[facility] HospitalIn the event this information is protected by the Federal Confidentiality of Alcohol and Drug Abuse Patient Records regulations: The Federal rules restrict any use of the information to criminally investigate or prosecute any alcohol or drug abuse patient.[facility]In the event this information is protected by the Federal Confidentiality of Alcohol and Drug Abuse Patient Records regulations: The Federal rules restrict any use of the information to criminally investigate or prosecute any alcohol or drug abuse patient.[facility] HospitalIn the event this information is protected by the Federal Confidentiality of Alcohol and Drug Abuse Patient Records regulations: The Federal rules restrict any use of the information to criminally investigate or prosecute any alcohol or drug abuse patient.[facility] HospitalIn the event this information is protected by the Federal Confidentiality of Alcohol and Drug Abuse Patient Records regulations: The Federal rules restrict any use of the information to criminally investigate or prosecute any alcohol or drug abuse patient.[facility] HospitalIn the event this information is protected by the Federal Confidentiality of Alcohol and Drug Abuse Patient Records regulations: The Federal rules restrict any use of the information to criminally investigate or prosecute any alcohol or drug abuse patient.[facility] HospitalIn the event this information is protected by the Federal Confidentiality of Alcohol and Drug Abuse Patient Records regulations: The Federal rules restrict any use of the information to criminally investigate or prosecute any alcohol or drug abuse patient.[facility] HospitalIn the event this information is protected by the Federal Confidentiality of Alcohol and Drug Abuse Patient Records regulations: The Federal rules restrict any use of the information to criminally investigate or prosecute any alcohol or drug abuse patient.[facility] HospitalIn the event this information is protected by the Federal Confidentiality of Alcohol and Drug Abuse Patient Records regulations: The Federal rules restrict any use of the information to criminally investigate or prosecute any alcohol or drug abuse patient.[facility] HospitalIn the event this information is protected by the Federal Confidentiality of Alcohol and Drug Abuse Patient Records regulations: The Federal rules restrict any use of the information to criminally investigate or prosecute any alcohol or drug abuse patient.[facility] HospitalIn the event this information is protected by the Federal Confidentiality of Alcohol and Drug Abuse Patient Records regulations: The Federal rules restrict any use of the information to criminally investigate or prosecute any alcohol or drug abuse patient.[facility] HospitalIn the event this information is protected by the Federal Confidentiality of Alcohol and Drug Abuse Patient Records regulations: The Federal rules restrict any use of the information to criminally investigate or prosecute any alcohol or drug abuse patient.[facility] HospitalIn the event this information is protected by the Federal Confidentiality of Alcohol and Drug Abuse Patient Records regulations: The Federal rules restrict any use of the information to criminally investigate or prosecute any alcohol or drug abuse patient.[facility] HospitalIn the event this information is protected by the Federal Confidentiality of Alcohol and Drug Abuse Patient Records regulations: The Federal rules restrict any use of the information to criminally investigate or prosecute any alcohol or drug abuse patient.[facility] HospitalIn the event this information is protected by the Federal Confidentiality of Alcohol and Drug Abuse Patient Records regulations: The Federal rules restrict any use of the information to criminally investigate or prosecute any alcohol or drug abuse patient.[facility] HospitalIn the event this information is protected by the Federal Confidentiality of Alcohol and Drug Abuse Patient Records regulations: The Federal rules restrict any use of the information to criminally investigate or prosecute any alcohol or drug abuse patient.[facility] HospitalIn the event this information is protected by the Federal Confidentiality of Alcohol and Drug Abuse Patient Records regulations: The Federal rules restrict any use of the information to criminally investigate or prosecute any alcohol or drug abuse patient.[facility] HospitalIn the event this information is protected by the Federal Confidentiality of Alcohol and Drug Abuse Patient Records regulations: The Federal rules restrict any use of the information to criminally investigate or prosecute any alcohol or drug abuse patient.[facility] HospitalIn the event this information is protected by the Federal Confidentiality of Alcohol and Drug Abuse Patient Records regulations: The Federal rules restrict any use of the information to criminally investigate or prosecute any alcohol or drug abuse patient.[facility] HospitalIn the event this information is protected by the Federal Confidentiality of Alcohol and Drug Abuse Patient Records regulations: The Federal rules restrict any use of the information to criminally investigate or prosecute any alcohol or drug abuse patient.[facility] HospitalIn the event this information is protected by the Federal Confidentiality of Alcohol and Drug Abuse Patient Records regulations: The Federal rules restrict any use of the information to criminally investigate or prosecute any alcohol or drug abuse patient.[facility] HospitalIn the event this information is protected by the Federal Confidentiality of Alcohol and Drug Abuse Patient Records regulations: The Federal rules restrict any use of the information to criminally investigate or prosecute any alcohol or drug abuse patient.[facility] HospitalIn the event this information is protected by the Federal Confidentiality of Alcohol and Drug Abuse Patient Records regulations: The Federal rules restrict any use of the information to criminally investigate or prosecute any alcohol or drug abuse patient.[facility] HospitalIn the event this information is protected by the Federal Confidentiality of Alcohol and Drug Abuse Patient Records regulations: The Federal rules restrict any use of the information to criminally investigate or prosecute any alcohol or drug abuse patient.[facility] HospitalIn the event this information is protected by the Federal Confidentiality of Alcohol and Drug Abuse Patient Records regulations: The Federal rules restrict any use of the information to criminally investigate or prosecute any alcohol or drug abuse patient.[facility] HospitalIn the event this information is protected by the Federal Confidentiality of Alcohol and Drug Abuse Patient Records regulations: The Federal rules restrict any use of the information to criminally investigate or prosecute any alcohol or drug abuse patient.[facility] HospitalIn the event this information is protected by the Federal Confidentiality of Alcohol and Drug Abuse Patient Records regulations: The Federal rules restrict any use of the information to criminally investigate or prosecute any alcohol or drug abuse patient.[facility] HospitalIn the event this information is protected by the Federal Confidentiality of Alcohol and Drug Abuse Patient Records regulations: The Federal rules restrict any use of the information to criminally investigate or prosecute any alcohol or drug abuse patient.[facility] HospitalIn the event this information is protected by the Federal Confidentiality of Alcohol and Drug Abuse Patient Records regulations: The Federal rules restrict any use of the information to criminally investigate or prosecute any alcohol or drug abuse patient.[facility] HospitalIn the event this information is protected by the Federal Confidentiality of Alcohol and Drug Abuse Patient Records regulations: The Federal rules restrict any use of the information to criminally investigate or prosecute any alcohol or drug abuse patient.[facility] HospitalIn the event this information is protected by the Federal Confidentiality of Alcohol and Drug Abuse Patient Records regulations: The Federal rules restrict any use of the information to criminally investigate or prosecute any alcohol or drug abuse patient.[facility] HospitalIn the event this information is protected by the Federal Confidentiality of Alcohol and Drug Abuse Patient Records regulations: The Federal rules restrict any use of the information to criminally investigate or prosecute any alcohol or drug abuse patient.[facility] HospitalIn the event this information is protected by the Federal Confidentiality of Alcohol and Drug Abuse Patient Records regulations: The Federal rules restrict any use of the information to criminally investigate or prosecute any alcohol or drug abuse patient.[facility] HospitalIn the event this information is protected by the Federal Confidentiality of Alcohol and Drug Abuse Patient Records regulations: The Federal rules restrict any use of the information to criminally investigate or prosecute any alcohol or drug abuse patient.[facility] HospitalIn the event this information is protected by the Federal Confidentiality of Alcohol and Drug Abuse Patient Records regulations: The Federal rules restrict any use of the information to criminally investigate or prosecute any alcohol or drug abuse patient.[facility] HospitalIn the event this information is protected by the Federal Confidentiality of Alcohol and Drug Abuse Patient Records regulations: The Federal rules restrict any use of the information to criminally investigate or prosecute any alcohol or drug abuse patient.[facility] HospitalIn the event this information is protected by the Federal Confidentiality of Alcohol and Drug Abuse Patient Records regulations: The Federal rules restrict any use of the information to criminally investigate or prosecute any alcohol or drug abuse patient.[facility] HospitalIn the event this information is protected by the Federal Confidentiality of Alcohol and Drug Abuse Patient Records regulations: The Federal rules restrict any use of the information to criminally investigate or prosecute any alcohol or drug abuse patient.[facility] HospitalIn the event this information is protected by the Federal Confidentiality of Alcohol and Drug Abuse Patient Records regulations: The Federal rules restrict any use of the information to criminally investigate or prosecute any alcohol or drug abuse patient.[facility] HospitalIn the event this information is protected by the Federal Confidentiality of Alcohol and Drug Abuse Patient Records regulations: The Federal rules restrict any use of the information to criminally investigate or prosecute any alcohol or drug abuse patient.[facility] HospitalIn the event this information is protected by the Federal Confidentiality of Alcohol and Drug Abuse Patient Records regulations: The Federal rules restrict any use of the information to criminally investigate or prosecute any alcohol or drug abuse patient.[facility] HospitalIn the event this information is protected by the Federal Confidentiality of Alcohol and Drug Abuse Patient Records regulations: The Federal rules restrict any use of the information to criminally investigate or prosecute any alcohol or drug abuse patient.[facility] HospitalIn the event this information is protected by the Federal Confidentiality of Alcohol and Drug Abuse Patient Records regulations: The Federal rules restrict any use of the information to criminally investigate or prosecute any alcohol or drug abuse patient.[facility] HospitalIn the event this information is protected by the Federal Confidentiality of Alcohol and Drug Abuse Patient Records regulations: The Federal rules restrict any use of the information to criminally investigate or prosecute any alcohol or drug abuse patient.[facility]In the event this information is protected by the Federal Confidentiality of Alcohol and Drug Abuse Patient Records regulations: The Federal rules restrict any use of the information to criminally investigate or prosecute any alcohol or drug abuse patient.[facility] HospitalIn the event this information is protected by the Federal Confidentiality of Alcohol and Drug Abuse Patient Records regulations: The Federal rules restrict any use of the information to criminally investigate or prosecute any alcohol or drug abuse patient.[facility] HospitalIn the event this information is protected by the Federal Confidentiality of Alcohol and Drug Abuse Patient Records regulations: The Federal rules restrict any use of the information to criminally investigate or prosecute any alcohol or drug abuse patient.[facility] HospitalIn the event this information is protected by the Federal Confidentiality of Alcohol and Drug Abuse Patient Records regulations: The Federal rules restrict any use of the information to criminally investigate or prosecute any alcohol or drug abuse patient.[facility] HospitalIn the event this information is protected by the Federal Confidentiality of Alcohol and Drug Abuse Patient Records regulations: The Federal rules restrict any use of the information to criminally investigate or prosecute any alcohol or drug abuse patient.[facility] HospitalIn the event this information is protected by the Federal Confidentiality of Alcohol and Drug Abuse Patient Records regulations: The Federal rules restrict any use of the information to criminally investigate or prosecute any alcohol or drug abuse patient.[facility] HospitalIn the event this information is protected by the Federal Confidentiality of Alcohol and Drug Abuse Patient Records regulations: The Federal rules restrict any use of the information to criminally investigate or prosecute any alcohol or drug abuse patient.[facility] the event this information is protected by the Federal Confidentiality of Alcohol and Drug Abuse Patient Records regulations: The Federal rules restrict any use of the information to criminally investigate or prosecute any alcohol or drug abuse patient.[facility] the event this information is protected by the Federal Confidentiality of Alcohol and Drug Abuse Patient Records regulations: The Federal rules restrict any use of the information to criminally investigate or prosecute any alcohol or drug abuse patient.[facility] the event this information is protected by the Federal Confidentiality of Alcohol and Drug Abuse Patient Records regulations: The Federal rules restrict any use of the information to criminally investigate or prosecute any alcohol or drug abuse patient.[facility] the event this information is protected by the Federal Confidentiality of Alcohol and Drug Abuse Patient Records regulations: The Federal rules restrict any use of the information to criminally investigate or prosecute any alcohol or drug abuse patient.[facility] the event this information is protected by the Federal Confidentiality of Alcohol and Drug Abuse Patient Records regulations: The Federal rules restrict any use of the information to criminally investigate or prosecute any alcohol or drug abuse patient.[facility] the event this information is protected by the Federal Confidentiality of Alcohol and Drug Abuse Patient Records regulations: The Federal rules restrict any use of the information to criminally investigate or prosecute any alcohol or drug abuse patient.[facility] the event this information is protected by the Federal Confidentiality of Alcohol and Drug Abuse Patient Records regulations: The Federal rules restrict any use of the information to criminally investigate or prosecute any alcohol or drug abuse patient.[facility] the event this information is protected by the Federal Confidentiality of Alcohol and Drug Abuse Patient Records regulations: The Federal rules restrict any use of the information to criminally investigate or prosecute any alcohol or drug abuse patient.[facility] the event this information is protected by the Federal Confidentiality of Alcohol and Drug Abuse Patient Records regulations: The Federal rules restrict any use of the information to criminally investigate or prosecute any alcohol or drug abuse patient.[facility] the event this information is protected by the Federal Confidentiality of Alcohol and Drug Abuse Patient Records regulations: The Federal rules restrict any use of the information to criminally investigate or prosecute any alcohol or drug abuse patient.[facility]In the event this information is protected by the Federal Confidentiality of Alcohol and Drug Abuse Patient Records regulations: The Federal rules restrict any use of the information to criminally investigate or prosecute any alcohol or drug abuse patient.[facility] FOR RECORDS PERTAINING TO PATIENTS WHO ARE OR HAVE BEEN ENROLLED IN A CHEMICAL DEPENDENCY/SUBSTANCEABUSE PROGRAM, SOME INFORMATION MAY BE OMITTED. This clinical summary was aggregated from multiple sources. Caution should be exercised in using it in the provision of clinical care. This summary normalizes information from multiple sources, and as a consequence, information in this document may materially change the coding, format and clinical context of patient data. In addition, data may be omitted in some cases. CLINICAL DECISIONS SHOULD BE BASED ON THE PRIMARY CLINICAL RECORDS. [facility] [employer] [facility] provides no warranty or guarantee of the accuracy or completeness of information in this document.
--- NOTE | 2025-01-28 20:30 | EX.ED.DYSGE1 ---
HPI History of Present Illness Chief Complaint: Abd Pain Narrative Narrative: Patient is a 34-year-old female with past medical history of bipolar disorder, anxiety, PTSD, hepatitis B, drug abuse, asthma, alcohol abuse who presented to the emergency department with a chief complaint of abdominal pain. She states that starting this morning when she woke up she developed abdominal pain in her upper abdomen and states this persisted prompting her to come here for further evaluation management. Patient denies any recent sick contacts. States that she has not drink alcohol. PFSH PFSH Medical History Nausea vomiting and diarrhea Physical exam, pre-employment Wears glasses MRSA infection Bipolar disorder Smoker Lymphocytic colitis Anxiety PTSD (post-traumatic stress disorder) Depression Bipolar 2 disorder Hx MRSA infection Hepatitis B Tumors Recurrent infections Drug abuse Hx: UTI (urinary tract infection) Hx of fracture Asthma Anemia Allergies Alcohol abuse Home Medications Medication Instructions Recorded Last Taken Type buprenorphine 100 mg/0.5 mL 100 mg subcut QMONTH 07/16/22 Unknown History solution,exten.rel.subcutaneous syringe (Sublocade) prazosin 1 mg capsule 1 mg PO QHS 07/16/22 Unknown History ondansetron 4 mg disintegrating 4 mg PO Q8H PRN nausea and 08/08/22 Unknown Rx tablet vomiting #30 tabs diphenhydramine HCl 25 mg tablet 25 mg PO QHS PRN 03/04/24 Unknown History (Benadryl Allergy) fluoxetine 20 mg capsule 20 mg PO QDAY 03/04/24 Unknown History levothyroxine 25 mcg tablet 25 mcg PO QDAY 03/04/24 Unknown History lithium carbonate 150 mg capsule 100 mg PO HS 03/04/24 Unknown History lithium carbonate 600 mg capsule 600 mg PO QDAY 03/04/24 Unknown History ondansetron HCl 4 mg tablet 4 mg PO Q8H PRN nausea and 03/04/24 Unknown Rx vomiting #7 tabs peg 3350-electrolytes 236 240 ml PO Q10M PRN #4,000 mL 01/28/25 Unknown Rx gram-22.74 gram-6.74 gram-5.86 gram solution (Golytely) Allergy/AdvReac Type Severity Reaction Status Date / Time amoxicillin (From Augmentin) Allergy Intermediate Hives Verified 01/28/25 18:48 clavulanic acid (From Allergy Intermediate Hives Verified 01/28/25 18:48 Augmentin) penicillin G Allergy Intermediate Hives Verified 01/28/25 18:48 Family History Mother Anemia Cancer cervical/ovarian Grandmother Asthma Breast cancer Parkinsons Poor mental health Father Arthritis Bowel disease colitis Grandfather Colon cancer Diabetes Other Anxiety Surgical History Hx of section History of tonsillectomy and adenoidectomy [place] teeth removed Social History household members: other details: 180 treatment program current occupational status: unemployed Smoking Status: Current every day smoker tobacco type: cigarettes Electronic Cigarette Use: not used alcohol intake: former year quit: 2014 substance use type: marijuana and crack/cocaine what type of physical activity do you participate in: yoga do you feel safe at home: Yes ROS ROS ED ROS Narrative Constitutional: Denies any fevers, chills, headaches Eyes: Denies double vision Cardiovascular: Denies chest pain Respiratory: Denies shortness of breath Abdomen: Complains of abdominal pain as noted above denies nausea or vomiting currently : Denies any urinary symptoms Neurological: Denies any numbness, weakness some tingling Musculoskeletal: Denies back pain Skin: Denies any rashes or lesions EXAM Physical Exam Narrative Exam Narrative: General: Patient is lying in bed rest comfortably did not appear to be in acute distress Head: Atraumatic, normocephalic Eyes: PERRL bilaterally, EOMI bilaterally, no conjunctival injection noted Neck: Soft, supple, trachea midline Cardiovascular: Regular rate and rhythm Respiratory: Clear to auscultation bilaterally Abdomen: Soft, nondistended, mild tenderness to palpation epigastric in the left lower quadrant no rebound or guarding on exam Extremities: +5/5 strength noted in bilateral lower extremities Neurological: Patient following commands knew that she was at [facility] year is 2024 Skin: Warm, dry, intact no rashes or lesions noted Const Vital Signs: 01/28/25 18:48 01/28/25 20:48 01/28/25 22:00 Temperature 97.4 F L Temperature Source Temporal Pulse Rate 96 76 76 Respiratory Rate 18 16 Blood Pressure 138/89 H 113/73 119/70 Blood Pressure Mean 105 86 86 Pulse Ox 100 100 100 Oxygen Delivery Method Room Air Room Air Room Air 01/28/25 22:56 01/28/25 23:04 Temperature 98.2 F 98.2 F Temperature Source Pulse Rate 76 76 Respiratory Rate 16 16 Blood Pressure 119/70 104/75 Blood Pressure Mean 86 84 Pulse Ox 100 100 Oxygen Delivery Method MDM MDM MDM Narrative Medical decision making narrative: Patient is a 34-year-old female who presented to the emergency department the chief complaint of abdominal pain. On the differential diagnose includes but not limited to pancreatitis, diverticulitis, bowel obstruction, viral gastroenteritis. Once workup is obtained and reviewed she will be reevaluated. Patient be given IV fluids Zofran and Bentyl. Patient CBC was reviewed and showed a white blood, and 0.6, he was 1.5, platelet count 246. The sodium is 134, potassium was noted to be normal at 4.1, creatinine 0.76. Patient's AST and ALT normal at 22 and 12 respectively. Patient lipase normal at 17 negative test urinalysis showed no evidence of infection. Patient's CT ab pelvis with IV contrast reviewed and showed concentric urinary bladder wall thickening suspicious for cystitis correlate with urinalysis dense colonic stool suspicious for constipation. On reevaluation the patient she would like to go home at this point time. She will be given prescription for GoLytely and was advised to follow-up with her doctor in outpatient setting return for worsening symptoms or concerns. She is agreeable to plan all question concerns answered she is discharged home in stable condition Lab Data Labs: Laboratory Results - last 24 hr 01/28/25 01/28/25 19:30 19:44 WBC 9.6 RBC 4.12 L Hgb 11.5 L Hct 36.1 L MCV 87.6 MCH 27.9 MCHC 31.9 L RDW Std Deviation 49.5 H RDW Coeff of Elvia 15.4 H Plt Count 246 MPV 11.0 Immature Gran % (Auto) 0.200 Neut % (Auto) 83.0 H Lymph % (Auto) 10.2 L [place] % (Auto) 5.3 Eos % (Auto) 1.1 Baso % (Auto) 0.2 Absolute Neuts (auto) 7.9 H Absolute Lymphs (auto) 0.98 Nucleated RBC % 0 Sodium 134 Potassium 4.1 Chloride 101 Carbon Dioxide 23.7 Anion Gap 9 BUN 12 Creatinine 0.76 Estim Creat Clear Calc 132.47 Est GFR (MDRD) Non-Af 106 BUN/Creatinine Ratio 15.2 Glucose 110 H Calcium 9.4 Total Bilirubin 0.42 AST 22 ALT 12 Alkaline Phosphatase 61 Total Protein 7.5 Albumin 4.4 Globulin 3.1 Albumin/Globulin Ratio 1.4 Lipase 17 Serum , Qual NEGATIVE Urine Color Yellow Urine Clarity Sl. Cloudy Urine pH 7.0 Ur Specific [place] 1.005 Urine Protein 15 H Urine Glucose (UA) Normal Urine Ketones Negative Urine Occult Blood Negative Urine Nitrite Negative Urine Bilirubin Negative Urine Urobilinogen Normal Ur Leukocyte Esterase Negative Urine RBC 0-5 SEEN Urine WBC 0-5 SEEN Ur Squamous Epith Cells 0-5 SEEN Urine Bacteria 1+ Urine Mucus 0 SEEN Radiography Diagnostic Testing: Clinical Impression(s) from Imaging Studies Abdomen/Pelvis CT 01/28/25 19:55 IMPRESSION: Concentric urinary bladder wall thickening suspicious for cystitis. Correlate with urinalysis. Dense colonic stool suspicious for constipation. Reading Location: [facility] Discharge Plan Triage Chief Complaint: Abd Pain ED Provider: Eladio Elizabeth Dx/Rx/DC Orders Clinical Impression: Abdominal pain, Constipation, Bipolar 2 disorder, Depression Prescriptions: New peg 3350-electrolytes [Golytely] 236-22.74-6.74 -5.86 gram recon soln 240 ml PO Q10M PRN Qty: 4000 0RF Rx Instructions: until fecal effluent is clear No Action Sublocade 100 mg/0.5 mL solution, extended rel syringe 100 mg subcut QMONTH prazosin 1 mg capsule 1 mg PO QHS levothyroxine 25 mcg tablet 25 mcg PO QDAY lithium carbonate 600 mg capsule 600 mg PO QDAY diphenhydramine HCl [Benadryl Allergy] 25 mg tablet 25 mg PO QHS PRN fluoxetine 20 mg capsule 20 mg PO QDAY ondansetron HCl 4 mg tablet 4 mg PO Q8H PRN (Reason: nausea and vomiting) Qty: 7 0RF lithium carbonate 150 mg capsule 100 mg PO HS ondansetron 4 mg tablet,disintegrating 4 mg PO Q8H PRN (Reason: nausea and vomiting) Qty: 30 0RF Primary Care Provider: LY EVANS Referrals: LY EVANS [Other] Activity Restrictions/Additional Instructions: Please prescription as prescribed. Follow-up your doctor in outpatient setting. Your blood work and your CT did not show any acute findings. Return with worsening symptoms or any concerns Print Language: Vietnamese Disposition Disposition: Home, Self Care
[2025-01-28 20:48] VITALS: BP 113/73; PULSE 76; O2SAT 100
--- NOTE | 2025-01-28 21:56 | ED.RN ---
CT called about imaging results. Reply was- "It should be the next on the list, we will give them a call."
[2025-01-28 22:00] VITALS: BP 119/70; PULSE 76; RESP 16; O2SAT 100
[2025-01-28 22:56] VITALS: BP 119/70; PULSE 76; RESP 16; TEMP 36.8; O2SAT 100
[2025-01-28 23:04] VITALS: BP 104/75; PULSE 76; RESP 16; TEMP 36.8; O2SAT 100
== END 2025-01-28 23:18 | disposition home or self-care (01) ==
PROVIDERS: Emergency Provider Emergency Medicine; Visit Provider Emergency Medicine
DX: R10.10 Upper abdominal pain, unspecified (principal); F31.81 Bipolar II disorder; K59.00 Constipation, unspecified; F17.210 Nicotine dependence, cigarettes, uncomplicated
CPT/HCPCS: 74177; 80053; 81001; 83690; 84703; 85025; 96361; 96374; 96376; 99283; Q9967; A4216; J2405